=== PATIENT | female | born 1940 | race Caucasian/White ===

== ENCOUNTER 2018-02-08 19:39 | Observation (INO) | payer MEDICARE, OTHER ==
--- NOTE | 2018-02-08 20:12 | ERPHSYRPT ---
- History of Present Illness Time Seen by Provider: 02/08/18 20:03 Source: EMS, long term records Exam Limitations: other (dementia) Patient Subjective Stated Complaint: Pt arrives to ER via EMS from [facility] with c/o per ID RN report of Bradycardia 42-47bpm, Hypotension 93/59 , Hypoxia in the 80's on RA and SOB. Per ID RN report states placed pt on 2L O2 NC and pt up to 90-92%. Pt also recently had medication changed d/c Valsartan and started Losartan 1 week ago. EMS reports HR never dropping lower than 62bpm , reports 130's/80's BP and had found pt on RA in [place] with O2 low 90's. pt states has intermittent SOB but otherwise denies any c/o. pt tachypneic breathing 26 resps/min and somewhat labored. Pt has +1 pitting edema BLE. Denies CP, pain anywhere or any other c/o. Triage Nursing Assessment: see above Physician History: The patient is a demented 77-year-old female from a local long term by ambulance where it was reported that she had a heart rate of 42-47 bpm, blood pressure of 93/59, and O2 saturation on room air of 80%. halfway nurse reports placing the patient on O2 2 L nasal cannula with O2 saturation reaching 90-92%. EMS reports that her heart rate on transport was in the 60s and 70s, blood pressure 130s over 80s, and O2 saturation in the low 90s. Her past medical history significant for dementia, hypertension, and diabetes. The daughter called the pt's deputy jailer, Dr Corea, who wants the pt to be observed overnight. Timing/Duration: today Severity: moderate Modifying Factors: Improves With: nothing Associated Symptoms: shortness of breath, No nausea, No vomiting, No diaphoresis Allergies/Adverse Reactions: No Known Drug Allergies Allergy (Verified 02/23/15 08:39) Home Medications: Insulin Detemir [Levemir] 22 unit SQ QHS 02/23/15 [History] Acetaminophen 325 mg [Tylenol 325 mg] 325 mg PO Q4HPRN PRN 02/08/18 [ History] Amlodipine Besylate 5 mg [Norvasc 5 mg] 5 mg PO DAILY 02/08/18 [History] Apixaban [Eliquis 5 mg Tablet] 5 mg PO BID 02/08/18 [History] Aspirin 81 gm Chew [Baby Aspirin 81 mg Chew] 81 mg PO DAILY 02/08/18 [ History] Bumetanide 1 mg [Bumex 1 mg] 1 mg PO DAILY 02/08/18 [History] Clonazepam 0.5 mg [Klonopin 0.5 MG] 0.5 mg PO TID 02/08/18 [History] Docusate Sodium 100 mg [Colace 100 MG] 100 mg PO BID 02/08/18 [History] Donepezil HCl [Aricept] 5 mg PO DAILY 02/08/18 [History] Escitalopram Oxalate 10 mg [Lexapro 10 MG] 10 mg PO DAILY 02/08/18 [History] Folic Acid 1 mg [Folate 1 mg] 1 mg PO DAILY 02/08/18 [History] Hydrocodone Bit/Acetaminophen [[place] 5-325 Tablet] 1 each PO 02/08/18 [History] Insulin Aspart [NovoLOG Insulin] 7 units SQ TIDWM 02/08/18 [History] Losartan Potassium [Cozaar] 100 mg PO DAILY 02/08/18 [History] Memantine HCl 5 mg PO BID 02/08/18 [History] OLANZapine [Olanzapine] 2.5 mg PO DAILY 02/08/18 [History] PANTOPRAZOLE 40 mg Tablet [Protonix 40MG Tablet] 40 mg PO DAILY 02/08/18 [ History] Potassium Chloride [Klor-Con 10] 10 meq PO DAILY 02/08/18 [History] Sennosides [Senna] 8.6 mg PO DAILY 02/08/18 [History] Hx Tetanus, Diphtheria Vaccination/Date Given: Yes Hx Influenza Vaccination/Date Given: No Hx Pneumococcal Vaccination/Date Given: No - Review of Systems Constitutional: No Fever, No Chills Eyes: No Symptoms Ears, Nose, & Throat: No Symptoms Respiratory: Dyspnea Cardiac: No Chest Pain, No Edema, No Syncope Abdominal/Gastrointestinal: No Abdominal Pain, No Nausea, No Vomiting, No Diarrhea Genitourinary Symptoms: No Dysuria Musculoskeletal: No Back Pain, No Neck Pain Skin: No Rash Neurological: No Dizziness, No Focal Weakness, No Sensory Changes Psychological: No Symptoms Endocrine: No Symptoms Hematologic/Lymphatic: No Symptoms Immunological/Allergic: No Symptoms All Other Systems: Reviewed and Negative - Past Medical History Pertinent Past Medical History: Yes Neurological History: Peripheral Neuropathy ENT History: Cataracts Cardiac History: Hypertension Respiratory History: COPD, Sleep Apnea, Other Endocrine Medical History: Diabetes Type II Musculoskeletal History: Arthritis GI Medical History: Diverticulitis, Irritable Bowel History: No Pertinent History Psycho-Social History: No Pertinent History Female Reproductive Disorders: No Pertinent History Other Medical History: pt family states ot noncompliant with cpap - Past Surgical History Past Surgical History: Yes Neuro Surgical History: No Pertinent History Cardiac: No Pertinent History Respiratory: No Pertinent History Gastrointestinal: No Pertinent History Genitourinary: Other Musculoskeletal: No Pertinent History Female Surgical History: Tubal Ligation Other Surgical History: ear surgery, cataract surgery, bladder tuck,lasik surgery - Social History Smoking Status: Former smoker How long have you smoked: 50 years Exposure to second hand smoke: No Drug Use: none Patient Lives Alone: No - Female History Hx Now: No - Nursing Vital Signs Nursing Vital Signs: Initial Vital Signs Temperature 99.4 F 02/08/18 19:41 Pulse Rate 64 02/08/18 19:41 Respiratory Rate 26 H 02/08/18 19:41 Blood Pressure 156/90 02/08/18 19:41 O2 Sat by Pulse Oximetry 91 L 02/08/18 19:41 Pain Scale Pain Intensity 0 - Physical Exam General Appearance: no apparent distress, alert Eye Exam: PERRL/EOMI, eyes nml inspection Ears, Nose, Throat Exam: normal ENT inspection, TMs normal, pharynx normal, moist mucous membranes Neck Exam: normal inspection, non-tender, supple, full range of motion Respiratory Exam: prolonged expirations Cardiovascular Exam: regular rate/rhythm, normal heart sounds, normal peripheral pulses Gastrointestinal/Abdomen Exam: soft, normal bowel sounds, No tenderness, No mass Pelvic Exam: not done Rectal Exam: not done Back Exam: normal inspection, normal range of motion, No CVA tenderness, No vertebral tenderness Extremity Exam: normal inspection, normal range of motion, pelvis stable Neurologic Exam: alert, oriented x 3, cooperative, normal mood/affect, nml cerebellar function, nml station & gait, sensation nml, No motor deficits Skin Exam: normal color, warm, dry, No rash Lymphatic Exam: No adenopathy SpO2 Interpretation: normal SpO2: 91 Oxygen Delivery: Nasal Cannula - Course EKG Interpreted by Me: RATE, Sinus Rhythm, NORMAL AXIS, NORMAL INTERVALS, NORMAL QRS, NORMAL ST-T - Radiology Exams Chest X-ray Interpretation: Interpreted by me, Negative, Other (interval clearing of pulmonary congestion. stable 2v chest. comp 2v chest 11/11/17.) Ordered Tests: Active Orders 24 hr Category Date Time Status Pulp Beater STAT Care 02/08/18 20:03 Active EKG-ER Only STAT Care 02/08/18 19:52 Active IV Insertion STAT Care 02/08/18 20:03 Active Oxygen-ED Only NASAL CANNULA 2 lpm Care 02/08/18 19:52 Active Pulse Oximetry (ED) STAT Care 02/08/18 20:14 Active CHEST 2 VIEWS (PA AND LAT) Stat Exams 02/08/18 20:15 Taken CBC W DIFF Stat Lab 02/08/18 19:55 Completed CMP Stat Lab 02/08/18 19:55 Completed D-DIMER QUANTITATION Stat Lab 02/08/18 19:55 Completed Lactic Acid Stat Lab 02/08/18 20:44 Results Manual Differential NC Stat Lab 02/08/18 19:55 Completed NT PRO BNP Stat Lab 02/08/18 19:55 Completed TROPONIN Q3H Lab 02/08/18 19:55 Completed TROPONIN Q3H Lab 02/08/18 23:15 Ordered TROPONIN Q3H Lab 02/09/18 02:15 Ordered TROPONIN Q3H Lab 02/09/18 05:15 Ordered TROPONIN Q3H Lab 02/09/18 08:15 Ordered Lab/Rad Data: Laboratory Result Diagrams 02/08/18 19:55 02/08/18 19:55 Laboratory Results 02/08/18 02/08/18 02/08/18 Range/Units 20:44 19:55 19:55 WBC (4.0-10.5) K/mm3 RBC (4.1-5.4) M/mm3 Hgb (12.0-16.0) gm/dl Hct (35-47) % MCV (78-100) fl MCH (26-32) pg MCHC (32-36) g/dl RDW (11.5-14.0) % Plt Count (150-450) K/mm3 MPV (6-9.5) fl Absolute Granulocytes (1.4-6.9) Segmented Neutrophils (36.0-66.0) % Band Neutrophils (0.0-2.0) % Lymphocytes (Manual) (24-44) % Monocytes (Manual) (0.0-12.0) % Eosinophils (Manual) (0.00-3.0) % Metamyelocytes % Hypochromia Platelet Estimate (NORMAL) RBC Morphology Basophilic Stippling D-Dimer 444 (215-500) ng/mL Sodium (137-145) mmol/L Potassium (3.5-5.1) mmol/L Chloride (98-107) mmol/L Carbon Dioxide (22-30) mmol/L Anion Gap (5-15) MEQ/L BUN (7-17) mg/dL Creatinine (0.52-1.04) mg/dL Estimated GFR ML/MIN Glucose (74-106) mg/dL Lactic Acid 3.1 H (0.4-2.0) Calcium (8.4-10.2) mg/dL Total Bilirubin (0.2-1.3) mg/dL AST (14-36) U/L ALT (0-35) U/L Alkaline Phosphatase (38-126) U/L Troponin I 0.026 (0.000-0.034) ng/mL NT-Pro-B Natriuret Pep (0-1800) pg/mL Serum Total Protein (6.3-8.2) g/dL Albumin (3.5-5.0) g/dL 02/08/18 02/08/18 Range/Units 19:55 19:55 WBC 7.9 (4.0-10.5) K/mm3 RBC 4.54 (4.1-5.4) M/mm3 Hgb 12.7 (12.0-16.0) gm/dl Hct 41.5 (35-47) % MCV 91.4 (78-100) fl MCH 28.0 (26-32) pg MCHC 30.6 L (32-36) g/dl RDW 14.2 H (11.5-14.0) % Plt Count 215 (150-450) K/mm3 MPV 10.7 H (6-9.5) fl Absolute Granulocytes 4.97 (1.4-6.9) Segmented Neutrophils 70 H (36.0-66.0) % Band Neutrophils 4 H (0.0-2.0) % Lymphocytes (Manual) 17 L (24-44) % Monocytes (Manual) 5 (0.0-12.0) % Eosinophils (Manual) 3 (0.00-3.0) % Metamyelocytes 1 % Hypochromia 1+ Platelet Estimate NORMAL (NORMAL) RBC Morphology ABNORMAL Basophilic Stippling 1+ D-Dimer (215-500) ng/mL Sodium 137 (137-145) mmol/L Potassium 4.1 (3.5-5.1) mmol/L Chloride 98 (98-107) mmol/L Carbon Dioxide 29 (22-30) mmol/L Anion Gap 15.0 (5-15) MEQ/L BUN 31 H (7-17) mg/dL Creatinine 1.23 H (0.52-1.04) mg/dL Estimated GFR 44.9 ML/MIN Glucose 397 H (74-106) mg/dL Lactic Acid (0.4-2.0) Calcium 9.1 (8.4-10.2) mg/dL Total Bilirubin 0.20 (0.2-1.3) mg/dL AST 16 (14-36) U/L ALT 16 (0-35) U/L Alkaline Phosphatase 128 H (38-126) U/L Troponin I (0.000-0.034) ng/mL NT-Pro-B Natriuret Pep 922 (0-1800) pg/mL Serum Total Protein 6.6 (6.3-8.2) g/dL Albumin 3.7 (3.5-5.0) g/dL - Progress Progress: unchanged Discussed with : Carmine (for Dr Loretta Flower) Will see patient in: hospital (observation) Counseled pt/family regarding: lab results, diagnosis, rad results - Departure Time of Disposition: 21:29 Departure Disposition: Observation (Per Dr Lou for Dr Loretta Flower) Clinical Impression: Bradycardia, Hypotension, Dyspnea Condition: Stable Critical Care Time: No Referrals: DARYL LIVINGSTON [Primary Care Provider] -
[2018-02-08 20:26] LABS: Granulocyte Absolute (ANC) 4.97 (1.4-6.9); Hematocrit 41.5 % (35-47); Hemoglobin 12.7 gm/dl (12.0-16.0); Mean Cell Volume 91.4 fl (78-100); Mean Corpuscular Hgb Concent. 30.6 g/dl (32-36); Mean Platelet Volume 10.7 fl (6-9.5); Platelet Count 215 K/mm3 (150-450); Red Blood Count 4.54 M/mm3 (4.1-5.4); Red Cell Distribution Width 14.2 % (11.5-14.0); White Blood Count 7.9 K/mm3 (4.0-10.5)
[2018-02-08 20:53] LABS: ALBUMIN 3.7 g/dL (3.5-5.0); BILIRUBIN,TOTAL 0.2 mg/dL (0.2-1.3); Calcium 9.1 mg/dL (8.4-10.2); Creatinine 1 1.23 mg/dL (0.52-1.04); Potassium 4.1 mmol/L (3.5-5.1); Total Protein 6.6 g/dL (6.3-8.2)
[2018-02-08 20:58] LABS: Lactic Acid 3.1 (0.4-2.0)
[2018-02-08 21:11] LABS: BAND 4 % (0.0-2.0); Basophilic Stippling 1+; Eosinophil 3 % (0.00-3.0); Hypochromia 1+; Lymphocytes 17 % (24-44); Metamyelocyte 1 %; Monocyte 5 % (0.0-12.0); Neutrophils 70 % (36.0-66.0); Platelet Estimate NORMAL (NORMAL); Total Cells Counted 100
[2018-02-08] MEDS ORDERED: Zofran 4 MG/2 ML VIAL IV PRN (22:18)
[2018-02-08] MEDS ORDERED: TYLENOL 325 MG PO PRN (22:18)
[2018-02-08] MEDS: Sodium Chloride 0.9% 1000 ML 1,000 ML IV SCH (22:29)
[2018-02-09] MEDS ORDERED: APRESOLINE 20 MG/ML INJ IV PRN (00:09)
[2018-02-09] MEDS: NovoLOG Insulin SQ PRN ×3 (00:42→12:07)
[2018-02-09 05:58] LABS: ANION GAP 12.9 MEQ/L (5-15); Calcium 9.1 mg/dL (8.4-10.2); Creatinine 1 1.03 mg/dL (0.52-1.04); Potassium 3.8 mmol/L (3.5-5.1)
[2018-02-09 06:01] LABS: Granulocyte Absolute (ANC) 4.39 (1.4-6.9); Hematocrit 41.9 % (35-47); Mean Cell Volume 90.5 fl (78-100); Mean Corpuscular Hemoglobin 28.1 pg (26-32); Mean Platelet Volume 10.5 fl (6-9.5); Platelet Count 213 K/mm3 (150-450); Red Blood Count 4.63 M/mm3 (4.1-5.4); Red Cell Distribution Width 14.1 % (11.5-14.0); White Blood Count 7.1 K/mm3 (4.0-10.5)
[2018-02-09 06:31] LABS: Lymphocytes 22 % (24-44); Monocyte 3 % (0.0-12.0); Neutrophils 75 % (36.0-66.0); Platelet Estimate NORMAL (NORMAL); Total Cells Counted 100
[2018-02-09] MEDS: Sodium Chloride 0.9% 1000 ML 1,000 ML IV SCH (07:38)
--- NOTE | 2018-02-09 08:40 | PCM.HP ---
History of Present Illness - Chief Complaint Chief Complaint: bradycardia,hypotension,dyspnea Date: 02/09/18 History of Present Illness: is a 77 year old female. who was living at [facility] and became more faitigued and reported just not feeling well. Her vitals showed low pulse in the 40's which is abnormal for her. She was denied any chest pain. She then was having lower oxygen and was placed on 2L. She reported just not feeling well and thus was transfered to the ED. There her evaluation was remarkable only for lactic acid elevated. She was given fluids and slept well overnight but pulse was in the 50's She had several pauses overnight as well as episodes of NSVT. She denies complaints this am however when we lay her back in bed her pulse dropped to the upper 30's with her awake. It appears sinus rhythm she is awake and asymptomatic during this. Sitting up now it has improved back to a puls in the upper 50's low 60's. She does not take any medications for slowing the pulse. - Review of Systems Constitutional: No Fever, No Chills Eyes: No Symptoms Ears, Nose, & Throat: No Symptoms, Other (hearing loss) Respiratory: Cough (mild), No Short Of Breath Cardiac: No Chest Pain, No Edema, No Syncope Abdominal/Gastrointestinal: No Abdominal Pain, No Nausea, No Vomiting, No Diarrhea Genitourinary Symptoms: No Dysuria Musculoskeletal: No Back Pain, No Neck Pain Skin: No Rash Neurological: No Dizziness, No Focal Weakness, No Sensory Changes Psychological: No Symptoms Endocrine: No Symptoms Hematologic/Lymphatic: No Symptoms Immunological/Allergic: No Symptoms Medications & Allergies Home Medications: Home Medication List Insulin Detemir [Levemir] 22 unit SQ BID 02/23/15 [History Confirmed 02/08/18] Acetaminophen 325 mg [Tylenol 325 mg] 650 mg PO Q4HPRN PRN 02/08/18 [ History Confirmed 02/08/18] Amlodipine Besylate 5 mg [Norvasc 5 mg] 5 mg PO DAILY 02/08/18 [History Confirmed 02/08/18] Apixaban [Eliquis 5 mg Tablet] 5 mg PO BID 02/08/18 [History Confirmed ] Aspirin 81 gm Chew [Baby Aspirin 81 mg Chew] 81 mg PO DAILY 02/08/18 [ History Confirmed 02/08/18] Atorvastatin Calcium 40 mg PO DAILY 02/08/18 [History Confirmed 02/08/18] Bumetanide 1 mg [Bumex 1 mg] 1 mg PO DAILY 02/08/18 [History Confirmed ] Clonazepam 0.5 mg [Klonopin 0.5 MG] 0.5 mg PO TID 02/08/18 [History Confirmed 02/08/18] Docusate Sodium 100 mg [Colace 100 MG] 100 mg PO BID 02/08/18 [History Confirmed 02/08/18] Donepezil HCl [Aricept] 5 mg PO DAILY 02/08/18 [History Confirmed 02/08/18] Escitalopram Oxalate 10 mg [Lexapro 10 MG] 10 mg PO DAILY 02/08/18 [History Confirmed 02/08/18] Folic Acid 1 mg [Folate 1 mg] 1 mg PO DAILY 02/08/18 [History Confirmed ] Hydrocodone Bit/Acetaminophen [[place] 5-325 Tablet] 1 each PO Q4H PRN 02/08/18 [ History Confirmed 02/08/18] Hydrocodone/Acetaminophen [[place] 5-325 Tablet] 1 each PO BID 02/08/18 [History Confirmed 02/08/18] Insulin Aspart [NovoLOG Insulin] 7 units SQ TIDWM 02/08/18 [History Confirmed 02/08/18] Losartan Potassium [Cozaar] 100 mg PO DAILY 02/08/18 [History Confirmed 02/08/18 ] Memantine HCl 5 mg PO BID 02/08/18 [History Confirmed 02/08/18] Nitroglycerin 0.4 mg Tablet [Nitrostat 0.4 MG Tablet] 1 tablet SL UD PRN 02/08/18 [History Confirmed 02/09/18] OLANZapine [Olanzapine] 2.5 mg PO QHS 02/08/18 [History Confirmed 02/08/18] PANTOPRAZOLE 40 mg Tablet [Protonix 40MG Tablet] 40 mg PO DAILY 02/08/18 [ History Confirmed 02/08/18] Potassium Chloride [Klor-Con 10] 10 meq PO DAILY 02/08/18 [History Confirmed ] Sennosides [Senna] 8.6 mg PO DAILY 02/08/18 [History Confirmed 02/08/18] Allergies/Adverse Reactions: Allergies Allergy/AdvReac Type Severity Reaction Status Date / Time JAY Inhibitors Allergy Severe angioedema Verified 02/09/18 12:53 - Past Medical History Past Medical History: Yes Neurological History: Peripheral Neuropathy ENT History: Cataracts Cardiac History: Hypertension Respiratory History: COPD, Sleep Apnea, Other Endocrine Medical History: Diabetes Type II Musculoskelatal History: Arthritis GI Medical History: Diverticulitis, Irritable Bowel History: No Pertinent History Pyscho-Social History: No Pertinent History Reproductive Disorders: No Pertinent History Comment: pt family states pt noncompliant with cpap - Female History Are you now?: No - Past Surgical History Past Surgical History: Yes Neuro Surgical History: No Pertinent History Cardiac History: No Pertinent History Respiratory Surgery: No Pertinent History GI Surgical History: No Pertinent History Genitourinary Surgical Hx: Other Musculskeletal Surgical Hx: No Pertinent History Female Surgical History: Tubal Ligation Other Surgical History: ear surgery, cataract surgery, bladder tuck,lasik surgery - Social History Smoking Status: Former smoker How long have you smoked: 50 years Exposure to second hand smoke: No Alcohol: None Drug Use: none - Physical Exam Vital Signs: Vital Signs - 24 hr Temp Pulse Pulse Resp BP Pulse Ox 02/09/18 07:06 98.6 F 57 L 18 172/69 93 L 02/09/18 06:00 20 02/09/18 04:00 98.1 F 56 L 20 175/80 94 L 02/09/18 00:00 58 L 20 170/90 96 02/08/18 22:52 97.8 F 58 L 20 192/85 97 02/08/18 21:33 91 L 02/08/18 21:00 60 16 146/81 96 02/08/18 20:17 90 L 02/08/18 19:41 99.4 F 64 64 26 H 156/90 91 L Oxygen-Last 24 hours O2 Percentage 2 Liters = 28% O2 Percentage 2 Liters = 28% O2 Percentage 2 Liters = 28% O2 Percentage 2 Liters = 28% O2 Percentage 2 Liters = 28% O2 Percentage 2 Liters = 28% General Appearance: no apparent distress, alert Neurologic Exam: alert, cooperative, normal mood/affect, nml cerebellar function , sensation nml, No motor deficits Eye Exam: PERRL/EOMI, eyes nml inspection Ears, Nose, Throat Exam: normal ENT inspection, pharynx normal, moist mucous membranes, dry mucous membranes Neck Exam: normal inspection, non-tender, supple, full range of motion Respiratory Exam: normal breath sounds, lungs clear, No respiratory distress Cardiovascular Exam: regular rate/rhythm, normal peripheral pulses, bradycardia Gastrointestinal/Abdomen Exam: soft, normal bowel sounds, No tenderness, No mass Back Exam: normal inspection, normal range of motion, No CVA tenderness, No vertebral tenderness Extremity Exam: normal inspection, normal range of motion, pelvis stable Skin Exam: normal color, warm, dry, No rash Lymphatic Exam: No adenopathy Results - Labs Lab/Micro Results: Accuchecks Date 02/09/18 Date 02/09/18 Time 07:44 Time 00:38 Accucheck Value: 220 Accucheck Value: 282 Lab Results-Last 24 Hours 02/08/18 02/08/18 02/08/18 Range/Units 19:55 19:55 19:55 WBC 7.9 (4.0-10.5) K/mm3 RBC 4.54 (4.1-5.4) M/mm3 Hgb 12.7 (12.0-16.0) gm/dl Hct 41.5 (35-47) % MCV 91.4 (78-100) fl MCH 28.0 (26-32) pg MCHC 30.6 L (32-36) g/dl RDW 14.2 H (11.5-14.0) % Plt Count 215 (150-450) K/mm3 MPV 10.7 H (6-9.5) fl Absolute Granulocytes 4.97 (1.4-6.9) Segmented Neutrophils 70 H (36.0-66.0) % Band Neutrophils 4 H (0.0-2.0) % Lymphocytes (Manual) 17 L (24-44) % Monocytes (Manual) 5 (0.0-12.0) % Eosinophils (Manual) 3 (0.00-3.0) % Metamyelocytes 1 % Hypochromia 1+ Platelet Estimate NORMAL (NORMAL) RBC Morphology ABNORMAL Basophilic Stippling 1+ D-Dimer 444 (215-500) ng/mL Sodium 137 (137-145) mmol/L Potassium 4.1 (3.5-5.1) mmol/L Chloride 98 (98-107) mmol/L Carbon Dioxide 29 (22-30) mmol/L Anion Gap 15.0 (5-15) MEQ/L BUN 31 H (7-17) mg/dL Creatinine 1.23 H (0.52-1.04) mg/dL Estimated GFR 44.9 ML/MIN Glucose 397 H (74-106) mg/dL Lactic Acid (0.4-2.0) Calcium 9.1 (8.4-10.2) mg/dL Total Bilirubin 0.20 (0.2-1.3) mg/dL AST 16 (14-36) U/L ALT 16 (0-35) U/L Alkaline Phosphatase 128 H (38-126) U/L Troponin I (0.000-0.034) ng/mL NT-Pro-B Natriuret Pep 922 (0-1800) pg/mL Serum Total Protein 6.6 (6.3-8.2) g/dL Albumin 3.7 (3.5-5.0) g/dL 02/08/18 02/08/18 02/08/18 Range/Units 19:55 20:44 23:15 WBC (4.0-10.5) K/mm3 RBC (4.1-5.4) M/mm3 Hgb (12.0-16.0) gm/dl Hct (35-47) % MCV (78-100) fl MCH (26-32) pg MCHC (32-36) g/dl RDW (11.5-14.0) % Plt Count (150-450) K/mm3 MPV (6-9.5) fl Absolute Granulocytes (1.4-6.9) Segmented Neutrophils (36.0-66.0) % Band Neutrophils (0.0-2.0) % Lymphocytes (Manual) (24-44) % Monocytes (Manual) (0.0-12.0) % Eosinophils (Manual) (0.00-3.0) % Metamyelocytes % Hypochromia Platelet Estimate (NORMAL) RBC Morphology Basophilic Stippling D-Dimer (215-500) ng/mL Sodium (137-145) mmol/L Potassium (3.5-5.1) mmol/L Chloride (98-107) mmol/L Carbon Dioxide (22-30) mmol/L Anion Gap (5-15) MEQ/L BUN (7-17) mg/dL Creatinine (0.52-1.04) mg/dL Estimated GFR ML/MIN Glucose (74-106) mg/dL Lactic Acid 3.1 H (0.4-2.0) Calcium (8.4-10.2) mg/dL Total Bilirubin (0.2-1.3) mg/dL AST (14-36) U/L ALT (0-35) U/L Alkaline Phosphatase (38-126) U/L Troponin I 0.026 0.028 (0.000-0.034) ng/mL NT-Pro-B Natriuret Pep (0-1800) pg/mL Serum Total Protein (6.3-8.2) g/dL Albumin (3.5-5.0) g/dL 02/09/18 02/09/18 02/09/18 Range/Units 02:21 04:00 05:33 WBC (4.0-10.5) K/mm3 RBC (4.1-5.4) M/mm3 Hgb (12.0-16.0) gm/dl Hct (35-47) % MCV (78-100) fl MCH (26-32) pg MCHC (32-36) g/dl RDW (11.5-14.0) % Plt Count (150-450) K/mm3 MPV (6-9.5) fl Absolute Granulocytes (1.4-6.9) Segmented Neutrophils (36.0-66.0) % Band Neutrophils (0.0-2.0) % Lymphocytes (Manual) (24-44) % Monocytes (Manual) (0.0-12.0) % Eosinophils (Manual) (0.00-3.0) % Metamyelocytes % Hypochromia Platelet Estimate (NORMAL) RBC Morphology Basophilic Stippling D-Dimer (215-500) ng/mL Sodium (137-145) mmol/L Potassium (3.5-5.1) mmol/L Chloride (98-107) mmol/L Carbon Dioxide (22-30) mmol/L Anion Gap (5-15) MEQ/L BUN (7-17) mg/dL Creatinine (0.52-1.04) mg/dL Estimated GFR ML/MIN Glucose (74-106) mg/dL Lactic Acid 1.3 (0.4-2.0) Calcium (8.4-10.2) mg/dL Total Bilirubin (0.2-1.3) mg/dL AST (14-36) U/L ALT (0-35) U/L Alkaline Phosphatase (38-126) U/L Troponin I 0.031 0.038 H* (0.000-0.034) ng/mL NT-Pro-B Natriuret Pep (0-1800) pg/mL Serum Total Protein (6.3-8.2) g/dL Albumin (3.5-5.0) g/dL 02/09/18 02/09/18 Range/Units 05:33 05:33 WBC 7.1 (4.0-10.5) K/mm3 RBC 4.63 (4.1-5.4) M/mm3 Hgb 13.0 (12.0-16.0) gm/dl Hct 41.9 (35-47) % MCV 90.5 (78-100) fl MCH 28.1 (26-32) pg MCHC 31.0 L (32-36) g/dl RDW 14.1 H (11.5-14.0) % Plt Count 213 (150-450) K/mm3 MPV 10.5 H (6-9.5) fl Absolute Granulocytes 4.39 (1.4-6.9) Segmented Neutrophils 75 H (36.0-66.0) % Band Neutrophils (0.0-2.0) % Lymphocytes (Manual) 22 L (24-44) % Monocytes (Manual) 3 (0.0-12.0) % Eosinophils (Manual) (0.00-3.0) % Metamyelocytes % Hypochromia Platelet Estimate NORMAL (NORMAL) RBC Morphology NORMAL Basophilic Stippling D-Dimer (215-500) ng/mL Sodium 142 (137-145) mmol/L Potassium 3.8 (3.5-5.1) mmol/L Chloride 101 (98-107) mmol/L Carbon Dioxide 32 H (22-30) mmol/L Anion Gap 12.9 (5-15) MEQ/L BUN 26 H (7-17) mg/dL Creatinine 1.03 (0.52-1.04) mg/dL Estimated GFR 55.1 ML/MIN Glucose 200 H (74-106) mg/dL Lactic Acid (0.4-2.0) Calcium 9.1 (8.4-10.2) mg/dL Total Bilirubin (0.2-1.3) mg/dL AST (14-36) U/L ALT (0-35) U/L Alkaline Phosphatase (38-126) U/L Troponin I (0.000-0.034) ng/mL NT-Pro-B Natriuret Pep (0-1800) pg/mL Serum Total Protein (6.3-8.2) g/dL Albumin (3.5-5.0) g/dL Accuchecks Date 02/09/18 Date 02/09/18 Time 07:44 Time 00:38 Accucheck Value: 220 Accucheck Value: 282 - Radiology Impressions Radiology Exams & Impressions: Radiology Procedures Category Date Time Status CHEST 2 VIEWS (PA AND LAT) Stat Exams 02/08/18 20:15 Taken - Other Procedures and Tests Respiratory Therapy 02/08/18 22:18 Oxygen NASAL CANNULA 2 lpm Assessment/Plan (1) Bradycardia Current Visit: Yes Status: Acute Onset Date: ~02/09/18 Assessment & Plan: discussed the pauses overnight with the symptoms as well as the bradycardia into the 30's with position changes with her pump and still operator Dr. Corea who has graciously accepted the patient for transfer to [facility] for further evaluation for possible need for internal pacemaker. Code(s): R00.1 - BRADYCARDIA, UNSPECIFIED (2) Sinus pause Current Visit: Yes Status: Acute Code(s): I45.5 - OTHER SPECIFIED HEART BLOCK (3) Atrial fibrillation Current Visit: Yes Status: Chronic Code(s): I48.91 - UNSPECIFIED ATRIAL FIBRILLATION (4) Essential hypertension Current Visit: Yes Status: Chronic Code(s): I10 - ESSENTIAL (PRIMARY) HYPERTENSION (5) Diabetes Current Visit: Yes Status: Chronic Code(s): E11.9 - TYPE 2 DIABETES MELLITUS WITHOUT COMPLICATIONS (6) Alzheimer's dementia with behavioral disturbance Current Visit: Yes Status: Chronic Code(s): G30.9 - ALZHEIMER'S DISEASE, UNSPECIFIED; F02.81 - DEMENTIA IN OTH DISEASES CLASSD [id number] W BEHAVIORAL DISTURB (7) Sleep apnea Current Visit: Yes Status: Chronic Code(s): G47.30 - SLEEP APNEA, UNSPECIFIED
--- NOTE | 2018-02-09 09:04 | XRAY ---
Exam: Two-view chest from 02/08/2018. Comparison: Two-view chest from 11/11/2016. Indication: Shortness of breath. Findings: AP semi-upright chest film obtained on the cart and 2 semi-upright lateral chest films on the cart with assistance were obtained. The heart size appears at the upper limits of normal. A calcified markedly tortuous thoracic aorta is seen. I again see a focal contour bulge at the superior margin of the aortic knob which could possibly represent some focal aneurysmal distention. The patient is rotated slightly toward the right on the AP film. I note some retrocardiac density which may be due to markedly tortuous distal descending thoracic aorta and/or hiatal hernia. A mild, oblique band of discoid atelectasis or scarring is seen within the central left lower lung field on the AP film. I do not appreciate any central pulmonary vascular congestion, Miguel B-lines, or pleural effusions. No air space infiltrates or other lung abnormalities are seen. No pneumothorax is seen. The bones are significantly demineralized. Mild diffuse chronic degenerative changes are seen within the middle and lower thoracic spine. The lateral images are slightly rotated as well. Impression: 1. Prior CHF pattern on 11/11/2016 has resolved. The current exam reveals no acute cardiopulmonary disease. 2. Small, oblique band of discoid atelectasis or scarring within central left lower lung field on AP image. No air space pneumonic infiltrates or other active lung disease is seen. 3. Focal convex contour bulge at the superior aspect of the aortic knob appears stable. Some focal aneurysmal distention of the thoracic aorta at this level may be present. 4. There is some retrocardiac density which is either due to a markedly tortuous descending thoracic aorta, retrocardiac hiatal hernia, or a combination of both. I favor that this is due to a markedly tortuous distal descending thoracic aorta.
[2018-02-09 09:13] LABS: Appearance CLEAR (CLEAR); Bilirubin NEGATIVE (NEGATIVE); Blood NEGATIVE Ery/ul (0-5); Glucose NEGATIVE (NEGATIVE); Ketones NEGATIVE (NEGATIVE); Leukocyte Esterase 1+ (NEGATIVE); Nitrite NEGATIVE (NEGATIVE); Protein,Urine Dip NEGATIVE (Negative); Urobilinogen NORMAL mg/dL (0-1)
[2018-02-09 09:23] LABS: Bacteria RARE /HPF (NEGATIVE); Epithelial Cells RARE /HPF (FEW); Mucus SLIGHT /HPF (NEGATIVE)
[2018-02-09] MEDS ORDERED: TYLENOL 325 MG PO PRN (09:38)
[2018-02-09] MEDS ORDERED: Nitrostat 0.4 MG Tablet SL PRN (09:38)
[2018-02-09] MEDS ORDERED: NORCO 5/325 MG PO PRN (09:38)
[2018-02-09] MEDS ORDERED: NORVASC 5 MG PO SCH (10:00)
[2018-02-09] MEDS ORDERED: Klor Con 10 MEQ PO SCH (10:00)
[2018-02-09] MEDS ORDERED: Aricept 10 MG PO SCH (10:00)
[2018-02-09] MEDS ORDERED: BABY ASPIRIN 81 MG CHEW PO SCH (10:00)
[2018-02-09] MEDS ORDERED: NON-FORMULARY ITEM (Donepezil Hcl [Aricept] 5 MG) PO SCH (10:00)
[2018-02-09] MEDS ORDERED: INSULIN DETEMIR 22 UNIT SQ SCH (10:00)
[2018-02-09] MEDS ORDERED: Colace 100 MG PO SCH (10:00)
[2018-02-09] MEDS ORDERED: FOLATE 1 MG PO SCH (10:00)
[2018-02-09] MEDS ORDERED: BUMEX 1 MG PO SCH (10:00)
[2018-02-09] MEDS ORDERED: Namenda 5 MG PO SCH (10:00)
[2018-02-09] MEDS ORDERED: NORCO 5/325 MG PO SCH (10:00)
[2018-02-09] MEDS ORDERED: Lexapro 10 MG PO SCH (10:00)
[2018-02-09] MEDS ORDERED: Lantus Insulin SQ SCH (10:00)
[2018-02-09] MEDS ORDERED: Klonopin 0.5 MG PO SCH (10:00)
[2018-02-09] MEDS ORDERED: Cozaar 50 MG PO SCH (10:00)
[2018-02-09] MEDS ORDERED: NON-FORMULARY ITEM (Losartan Potassium [Cozaar] 100 MG) PO SCH (10:00)
[2018-02-09] MEDS ORDERED: Protonix 40MG Tablet PO SCH (10:00)
[2018-02-09] MEDS ORDERED: ECOTRIN 81 MG PO SCH (10:00)
[2018-02-09] MEDS ORDERED: SENOKOT 8.6 MG PO SCH (10:00)
[2018-02-09] MEDS ORDERED: ELIQUIS 2.5 MG TABLET PO SCH (10:00)
[2018-02-09] MEDS ORDERED: ELIQUIS 5 MG TABLET PO SCH (10:00)
[2018-02-09] MEDS ORDERED: ROCEPHIN 1 Gm-D5w 50 ml Bag** 1 G/50 ML IVPB IV SCH (10:00)
[2018-02-09 11:54] VITALS: BP 161/77; PULSE 60; O2SAT 96
[2018-02-09] MEDS ORDERED: NovoLOG Insulin SQ SCH (12:00)
[2018-02-09] MEDS ORDERED: zyPREXA 5MG TABLET PO SCH (22:00)
[2018-02-09] MEDS ORDERED: LIPITOR 40MG PO SCH (22:00)
[2018-02-09] MEDS ORDERED: OLANZAPINE 2.5 MG PO SCH (22:00)
== END 2018-02-09 13:59 | disposition home or self-care (01) ==
LOC: ED 19:39 → MED SURG 22:15
PROVIDERS: ADMIT Family Medicine; ATTEND Family Medicine
DX: R11.0 Nausea (principal); I45.5 Other specified heart block; I48.91 Unspecified atrial fibrillation; I10 Essential (primary) hypertension; E11.9 Type 2 diabetes mellitus without complications; G30.8 Other Alzheimer's disease; G30.0 Alzheimer's disease with early onset; F02.81 Dementia in other diseases classified elsewhere, unspecified severity, with behavioral disturbance; G47.30 Sleep apnea, unspecified
CPT/HCPCS: 36000; 36415; 71046; 80048; 80053; 81000; 83605; 83880; 84484; 85025; 85379; 87086; 93005; 93041; 93268; 94760; 99285; J0696; A9270-GY; G0378

== ENCOUNTER 2019-02-27 10:28 | Inpatient (IN) | payer MEDICARE, OTHER ==
[2019-02-27] MEDS ORDERED: Sodium Chloride 0.9% 1000 ML 1,000 ML IV SCH (11:00)
[2019-02-27] MEDS ORDERED: Sodium Chloride 0.9% 1000 ML 1,000 ML ONE (11:05)
--- NOTE | 2019-02-27 11:08 | ERPHSYRPT ---
- History of Present Illness Time Seen by Provider: 02/27/19 11:02 Historian: patient, EMS Exam Limitations: other (poor historian) Patient Subjective Stated Complaint: pt daughter called this nurse prior to arrival of patient and stated that pt has LLQ pain, ems reports that pt has not had a bowel movement since wednesday and normally goes daily. ems also reports that pt has recently had the left kidney removed. pt unable to answer triage questions. Triage Nursing Assessment: pt is aox1, pt unable to answers some questions, pt does respond verbally, facial grimacing noted, radial pulses strong and equal, cap refill < 3 seconds, abd is round, tender to the left side, bowel sounds present and normoative x 4, external female catheter noted, pt mucous membranes appear dry. Physician History: Pt is c/o LLQ abdominal pain for "few days" according to her daughter, she did not have BM for 2 days, she denies vomiting, fever, urinary complaints. She wears a female external urinary catheter. She underwent left nephrectomy recently. Timing/Duration: day(s) (2) Activities at Onset: none Quality: sharpness Abdominal Pain Onset Location: LLQ Pain Radiation: no radiation Severity of Pain-Max: severe Severity of Pain-Current: severe Modifying Factors: Improves With: nothing Associated Symptoms: other (constipation) Previous symptoms: no prior history Allergies/Adverse Reactions: JAY Inhibitors Allergy (Severe, Verified 02/27/19 11:03) angioedema Home Medications: Insulin Detemir [Levemir] 22 unit SQ BID 02/23/15 [History] Acetaminophen 325 mg [Tylenol 325 mg] 650 mg PO Q4HPRN PRN 02/08/18 [ History] Amlodipine Besylate 5 mg [Norvasc 5 mg] 5 mg PO DAILY 02/08/18 [History] Apixaban [Eliquis 5 mg Tablet] 5 mg PO BID 02/08/18 [History] Aspirin 81 gm Chew [Baby Aspirin 81 mg Chew] 81 mg PO DAILY 02/08/18 [ History] Atorvastatin Calcium 40 mg PO DAILY 02/08/18 [History] Bumetanide 1 mg [Bumex 1 mg] 1 mg PO DAILY 02/08/18 [History] Clonazepam 0.5 mg [Klonopin 0.5 MG] 0.5 mg PO TID 02/08/18 [History] Docusate Sodium 100 mg [Colace 100 MG] 100 mg PO BID 02/08/18 [History] Donepezil HCl [Aricept] 5 mg PO DAILY 02/08/18 [History] Escitalopram Oxalate 10 mg [Lexapro 10 MG] 10 mg PO DAILY 02/08/18 [History] Folic Acid 1 mg [Folate 1 mg] 1 mg PO DAILY 02/08/18 [History] Hydrocodone Bit/Acetaminophen [[place] 5-325 Tablet] 1 each PO Q4H PRN 02/08/18 [ History] Hydrocodone/Acetaminophen [[place] 5-325 Tablet] 1 each PO BID 02/08/18 [History] Insulin Aspart [NovoLOG Insulin] 7 units SQ TIDWM 02/08/18 [History] Losartan Potassium [Cozaar] 100 mg PO DAILY 02/08/18 [History] Memantine HCl 5 mg PO BID 02/08/18 [History] Nitroglycerin 0.4 mg Tablet [Nitrostat 0.4 MG Tablet] 1 tablet SL UD PRN 02/08/18 [History] OLANZapine [Olanzapine] 2.5 mg PO QHS 02/08/18 [History] PANTOPRAZOLE 40 mg Tablet [Protonix 40MG Tablet] 40 mg PO DAILY 02/08/18 [ History] Potassium Chloride [Klor-Con 10] 10 meq PO DAILY 02/08/18 [History] Sennosides [Senna] 8.6 mg PO DAILY 02/08/18 [History] Hx Tetanus, Diphtheria Vaccination/Date Given: (UNK) Hx Influenza Vaccination/Date Given: (UNK) Hx Pneumococcal Vaccination/Date Given: (UNK) Immunizations Up to Date: (UNK) - Review of Systems Constitutional: No Symptoms Ears, Nose, & Throat: No Symptoms Respiratory: No Symptoms Cardiac: No Symptoms Abdominal/Gastrointestinal: Abdominal Pain, Constipation Genitourinary Symptoms: No Symptoms Skin: No Symptoms Neurological: No Symptoms All Other Systems: Reviewed and Negative - Past Medical History Pertinent Past Medical History: Yes Neurological History: Peripheral Neuropathy ENT History: Cataracts Cardiac History: Hypertension Respiratory History: COPD, Sleep Apnea, Other Endocrine Medical History: Diabetes Type II Musculoskeletal History: Arthritis GI Medical History: Diverticulitis, Irritable Bowel History: No Pertinent History Psycho-Social History: No Pertinent History Female Reproductive Disorders: No Pertinent History Other Medical History: pt family states pt noncompliant with cpap - Past Surgical History Past Surgical History: Yes Neuro Surgical History: No Pertinent History Cardiac: No Pertinent History Respiratory: No Pertinent History Gastrointestinal: No Pertinent History Genitourinary: Other Musculoskeletal: No Pertinent History Female Surgical History: Tubal Ligation Other Surgical History: ear surgery, cataract surgery, bladder tuck,lasik surgery - Social History Smoking Status: Former smoker How long have you smoked: 50 years Exposure to second hand smoke: No Drug Use: none Patient Lives Alone: No - Female History Hx Now: No - Nursing Vital Signs Nursing Vital Signs: Initial Vital Signs Temperature 98.2 F 02/27/19 10:41 Pulse Rate 63 02/27/19 10:41 Respiratory Rate 22 02/27/19 10:41 Blood Pressure 137/73 02/27/19 10:41 O2 Sat by Pulse Oximetry 96 02/27/19 10:41 Pain Scale Pain Intensity 0 - Physical Exam General Appearance: no apparent distress Eye Exam: eyes nml inspection Ears, Nose, Throat Exam: dry mucous membranes Neck Exam: normal inspection, non-tender, supple, No JVD Respiratory Exam: normal breath sounds, lungs clear, airway intact Cardiovascular Exam: regular rate/rhythm, normal heart sounds, normal peripheral pulses, No murmur Gastrointestinal/Abdomen Exam: soft, tenderness (mod. LLQ), No distention, No mass, No guarding, No ecchymosis, No pulsatile mass, No rebound Pelvic Exam: other (external female urinary catheter in place) Back Exam: normal inspection, No CVA tenderness Extremity Exam: normal inspection, No calf tenderness, No pedal edema Neurologic Exam: alert, oriented x 3, normal mood/affect Skin Exam: normal color, warm, dry, No rash, No jaundice, No cyanosis, No diaphoresis Lymphatic Exam: No adenopathy SpO2 Interpretation: normal SpO2: 97 - Course Nursing assessment & vital signs reviewed: Yes - CT Exams Abdomen/Pelvis CT Interpretation: Tele-radiologist Report, Other (distal descending colon diverticulitis) Ordered Tests: Active Orders 24 hr Category Date Time Status IV Insertion STAT Care 02/27/19 10:58 Active ABDOMEN AND PELVIS W/0 CONTRAS [CT] Stat Exams 02/27/19 12:19 Completed CBC W DIFF Stat Lab 02/27/19 10:58 Completed CMP Stat Lab 02/27/19 11:00 Completed CULTURE,URINE Stat Lab 02/27/19 11:00 Received LIPASE Stat Lab 02/27/19 11:00 Completed Lactic Acid Stat Lab 02/27/19 11:29 Completed UA W/RFX UR CULTURE Stat Lab 02/27/19 11:00 Completed Urine Triage Profile Stat Lab 02/27/19 11:00 Completed Respiratory Therapy Assessment DAILY RT 02/27/19 13:43 Active Medication Summary Generic Name Dose Route Start Last Admin Trade Name Freq PRN Reason Stop Dose Admin Sodium Chloride 1,000 mls @ 100 mls/hr 02/27/19 11:00 02/27/19 11:17 Sodium Chloride 0.9% 1000 Ml IV 03/29/19 10:59 100 mls/hr .Q10H ROSARIO Administration Metronidazole 500 mg in 100 mls @ 200 mls/hr 02/27/19 14:06 02/27/19 14:16 Flagyl 500 Mg Ivpb IV 02/27/19 14:35 200 ml/hr STAT STA 200 mls/hr Administration Levofloxacin/Dextrose 500 mg in 100 mls @ 100 mls/hr 02/27/19 14:06 Levofloxacin 500mg/100ml D5w IV 02/27/19 15:05 STAT STA Discontinued Medications Generic Name Dose Route Start Last Admin Trade Name Freq PRN Reason Stop Dose Admin Albuterol/Ipratropium 3 ml 02/27/19 13:24 02/27/19 13:37 Duoneb 0.5-3 Mg/3 Ml Neb IH 02/27/19 13:25 3 ml STAT ONE Administration Albuterol/Ipratropium Confirm 02/27/19 13:35 Duoneb 0.5-3 Mg/3 Ml Neb Administered 02/27/19 13:36 Dose 3 ml IH .STK-MED ONE Fentanyl Citrate 25 mcg 02/27/19 11:43 02/27/19 12:25 Sublimaze 100 Mcg/2 Ml IV 02/27/19 11:44 25 mcg STAT ONE Administration Fentanyl Citrate Confirm 02/27/19 12:21 Sublimaze 100 Mcg/2 Ml Administered 02/27/19 12:22 Dose 100 mcg .ROUTE .STK-MED ONE Metronidazole Confirm 02/27/19 14:15 Flagyl 500 Mg Ivpb Administered 02/27/19 14:16 Dose 500 mg in 100 mls @ ud IV .STK-MED ONE Ondansetron HCl 4 mg 02/27/19 11:43 02/27/19 12:26 Zofran 4 Mg/2 Ml Vial IV 02/27/19 11:44 4 mg STAT ONE Administration Ondansetron HCl Confirm 02/27/19 12:20 Zofran 4 Mg/2 Ml Vial Administered 02/27/19 12:21 Dose 4 mg .ROUTE .STK-MED ONE Lab/Rad Data: Laboratory Result Diagrams 02/27/19 10:58 02/27/19 10:58 Laboratory Results 02/27/19 02/27/19 02/27/19 Range/Units 11:29 11:00 11:00 WBC (4.0-10.5) K/mm3 RBC (4.1-5.4) M/mm3 Hgb (12.0-16.0) gm/dl Hct (35-47) % MCV (78-100) fl MCH (26-32) pg MCHC (32-36) g/dl RDW (11.5-14.0) % Plt Count (150-450) K/mm3 MPV (6-9.5) fl Gran % (36.0-66.0) % Eos # (Auto) (0-0.5) Absolute Lymphs (auto) (1.0-4.6) Absolute Monos (auto) (0.0-1.3) Lymphocytes % (24.0-44.0) % Monocytes % (0.0-12.0) % Eosinophils % (0.00-5.0) % Basophils % (0.0-0.4) % Absolute Granulocytes (1.4-6.9) Basophils # (0-0.4) Sodium Direct (138-146) mmol/L Potassium (3.5-4.9) mmol/L Chloride (98-109) mmol/L Carbon Dioxide (24-29) mmol/L Anion Gap (5-15) MEQ/L Venous BUN (8-26) mg/dL Creatinine (0.6-1.3) mg/dL Estimated GFR ML/MIN Glucose (70-105) mg/dL Lactic Acid 1.3 (0.4-2.0) Calcium (8.4-10.2) mg/dL Ionized Calcium (1.12-1.32) mmol/L Total Bilirubin (0.2-1.3) mg/dL AST (14-36) U/L ALT (0-35) U/L Alkaline Phosphatase (38-126) U/L Serum Total Protein (6.3-8.2) g/dL Albumin (3.5-5.0) g/dL Lipase (23-300) U/L Urine Color YELLOW (YELLOW) Urine Appearance CLEAR (CLEAR) Urine pH 5.0 (5-6) Ur Specific [place] 1.012 (1.005-1.025) Urine Protein NEGATIVE (Negative) Urine Ketones NEGATIVE (NEGATIVE) Urine Blood MODERATE (0-5) Wilbert/ul Urine Nitrite NEGATIVE (NEGATIVE) Urine Bilirubin NEGATIVE (NEGATIVE) Urine Urobilinogen NEGATIVE (0-1) mg/dL Ur Leukocyte Esterase NEGATIVE (NEGATIVE) Urine WBC (Auto) 0-2 (0-5) /HPF Urine RBC (Auto) 6-10 (0-2) /HPF U Hyaline Cast (Auto) 0-2 (0-2) /LPF U Epithel Cells (Auto) NONE (FEW) /HPF Urine Bacteria (Auto) NONE (NEGATIVE) /HPF Urine Culture Reflexed NO (NO) Urine Glucose NEGATIVE (NEGATIVE) mg/dL Urine Opiates Level POSITIVE (NEGATIVE) Ur Methadone NEGATIVE (NEGATIVE) Urine Barbiturates NEGATIVE (NEGATIVE) Ur Phencyclidine (PCP) NEGATIVE (NEGATIVE) Urine Amphetamine NEGATIVE (NEGATIVE) U Benzodiazepine Level NEGATIVE (NEGATIVE) Urine Cocaine NEGATIVE (NEGATIVE) Urine Marijuana (THC) NEGATIVE (NEGATIVE) 02/27/19 02/27/19 02/27/19 Range/Units 11:00 10:58 10:58 WBC 10.2 (4.0-10.5) K/mm3 RBC 3.93 L (4.1-5.4) M/mm3 Hgb 10.6 L (12.0-16.0) gm/dl Hct 35.0 (35-47) % MCV 89.1 (78-100) fl MCH 26.9 (26-32) pg MCHC 30.3 L (32-36) g/dl RDW 16.9 H (11.5-14.0) % Plt Count 222 (150-450) K/mm3 MPV 10.4 H (6-9.5) fl Gran % 73.3 H (36.0-66.0) % Eos # (Auto) 0.35 (0-0.5) Absolute Lymphs (auto) 1.35 (1.0-4.6) Absolute Monos (auto) 0.99 (0.0-1.3) Lymphocytes % 13.2 L (24.0-44.0) % Monocytes % 9.7 (0.0-12.0) % Eosinophils % 3.4 (0.00-5.0) % Basophils % 0.4 (0.0-0.4) % Absolute Granulocytes 7.49 H (1.4-6.9) Basophils # 0.04 (0-0.4) Sodium Direct 141 (138-146) mmol/L Potassium 4.0 (3.5-4.9) mmol/L Chloride 104 (98-109) mmol/L Carbon Dioxide 25 (24-29) mmol/L Anion Gap 13.1 (5-15) MEQ/L Venous BUN 41 H (8-26) mg/dL Creatinine 2.2 H (0.6-1.3) mg/dL Estimated GFR 25.9 ML/MIN Glucose 116 H (70-105) mg/dL Lactic Acid (0.4-2.0) Calcium 9.5 (8.4-10.2) mg/dL Ionized Calcium 1.24 (1.12-1.32) mmol/L Total Bilirubin 0.40 (0.2-1.3) mg/dL AST 46 H (14-36) U/L ALT 27 (0-35) U/L Alkaline Phosphatase 113 (38-126) U/L Serum Total Protein 7.5 (6.3-8.2) g/dL Albumin 3.8 (3.5-5.0) g/dL Lipase 57 (23-300) U/L Urine Color (YELLOW) Urine Appearance (CLEAR) Urine pH (5-6) Ur Specific [place] (1.005-1.025) Urine Protein (Negative) Urine Ketones (NEGATIVE) Urine Blood (0-5) Wilbert/ul Urine Nitrite (NEGATIVE) Urine Bilirubin (NEGATIVE) Urine Urobilinogen (0-1) mg/dL Ur Leukocyte Esterase (NEGATIVE) Urine WBC (Auto) (0-5) /HPF Urine RBC (Auto) (0-2) /HPF U Hyaline Cast (Auto) (0-2) /LPF U Epithel Cells (Auto) (FEW) /HPF Urine Bacteria (Auto) (NEGATIVE) /HPF Urine Culture Reflexed (NO) Urine Glucose (NEGATIVE) mg/dL Urine Opiates Level (NEGATIVE) Ur Methadone (NEGATIVE) Urine Barbiturates (NEGATIVE) Ur Phencyclidine (PCP) (NEGATIVE) Urine Amphetamine (NEGATIVE) U Benzodiazepine Level (NEGATIVE) Urine Cocaine (NEGATIVE) Urine Marijuana (THC) (NEGATIVE) - Progress Progress: improved Progress Note: 02/27/19 14:20 Pt was started on IV saline, given IV Fentanyl, Zofran, pain controlled, became hypoxaemic, given Duoneb treatment and nasal oxygen, started on IV Levaquin and Flagyl after reviewing her labs and CT result, called Dr Rouse, discussed our results and her current condition, he agreed to admit her for observation, patient and her daughter were informed and agreed. Discussed with : Nasim Will see patient in: hospital (observation) Counseled pt/family regarding: lab results, diagnosis, rad results - Departure Departure Disposition: Observation Clinical Impression: Diverticulitis Condition: Stable Critical Care Time: No
[2019-02-27 11:11] LABS: BASOPHIL % 0.4 % (0.0-0.4); Basophil (Absolute #) 0.04 (0-0.4); Eosinophil % 3.4 % (0.00-5.0); Eosinophil (Absolute #) 0.35 (0-0.5); Granulocyte Absolute (ANC) 7.49 (1.4-6.9); Granulocytes % 73.3 % (36.0-66.0); Hemoglobin 10.6 gm/dl (12.0-16.0); Lymphocyte (Absolute #) 1.35 (1.0-4.6); Lymphocytes % 13.2 % (24.0-44.0); Mean Cell Volume 89.1 fl (78-100); Mean Corpuscular Hgb Concent. 30.3 g/dl (32-36); Mean Platelet Volume 10.4 fl (6-9.5); Monocyte (Absolute #) 0.99 (0.0-1.3); Monocytes % 9.7 % (0.0-12.0); Platelet Count 222 K/mm3 (150-450); Red Blood Count 3.93 M/mm3 (4.1-5.4); Red Cell Distribution Width 16.9 % (11.5-14.0); White Blood Count 10.2 K/mm3 (4.0-10.5)
[2019-02-27 11:23] LABS: Mean Corpuscular Hemoglobin 26.9 pg (26-32)
[2019-02-27] MEDS ORDERED: SUBLIMAZE 100 MCG/2 ML IV ONE (11:43)
[2019-02-27] MEDS ORDERED: Zofran 4 MG/2 ML VIAL IV ONE (11:43)
[2019-02-27 11:46] LABS: Appearance CLEAR (CLEAR); Bilirubin NEGATIVE (NEGATIVE); Blood MODERATE Ery/ul (0-5); Glucose NEGATIVE (NEGATIVE); Hyaline Casts 0-2 /LPF (0-2); Ketones NEGATIVE (NEGATIVE); Leukocyte Esterase NEGATIVE (NEGATIVE); Nitrite NEGATIVE (NEGATIVE); Protein,Urine Dip NEGATIVE (Negative); Specific Gravity 1.012 (1.005-1.025); Urobilinogen NEGATIVE mg/dL (0-1); WBC 0-2 /HPF (0-5)
[2019-02-27 12:09] LABS: ISTAT CREA 2.2 mg/dL (0.6-1.3)
[2019-02-27] MEDS ORDERED: Zofran 4 MG/2 ML VIAL ONE (12:20)
[2019-02-27] MEDS ORDERED: SUBLIMAZE 100 MCG/2 ML ONE (12:21)
--- NOTE | 2019-02-27 13:05 | XRAY ---
Indication: Left lower quadrant pain. Little urine output. Multiple contiguous axial images obtained through the abdomen and pelvis without contrast as ordered. Comparison: February 04, 2015. Lung bases demonstrates new bilateral lower lobe patchy interstitial alveolar opacities. No consolidation or effusion. Heart is now enlarged with partially visualized pacer lead. Noncontrasted stomach and bowel loops appear nonobstructed. Again scattered descending and sigmoid diverticulosis. New focus of moderate mid to distal descending diverticulitis with tiny free fluid. No walled off fluid collection or free air. Interval left nephrectomy. New Le[place] catheter empties the bladder. Stable tiny gallstones/gravel. Remaining liver, gallbladder, pancreas, spleen, adrenal glands, right kidney, right ureter, and uterus appear unremarkable for noncontrast exam. Again heavy scattered vascular calcifications and tortuous/ectatic aorta. Osseous structures again demonstrates osteopenia, mild degenerative changes throughout the thoracolumbar spine, and small left sacrum bone island. Impression: 1. Again left hemicolon diverticulosis with new focus diverticulitis distal descending colon. No complications. 2. Stable tiny gallstones/gravel. 3. Interval left total nephrectomy with Lea catheter in situ. 4. New bibasilar patchy interstitial alveolar opacities. 5. New cardiomegaly. CT DI 23.68
[2019-02-27] MEDS ORDERED: DUONEB 0.5-3 MG/3 ml Neb IH ONE ×2 (13:24→13:35)
[2019-02-27 13:37] LABS: ALBUMIN 3.8 g/dL (3.5-5.0); ALKALINE PHOSPHATASE 113 U/L (38-126); ANION GAP 13.1 MEQ/L (5-15); Calcium 9.5 mg/dL (8.4-10.2); LIPASE 57 U/L (23-300); SGOT/AST 46 U/L (14-36); SGPT/ALT 27 U/L (0-35); Total Protein 7.5 g/dL (6.3-8.2)
[2019-02-27 13:39] LABS: Amphetamine,Urine NEGATIVE (NEGATIVE); Barbiturate,Urine NEGATIVE (NEGATIVE); Benzodiazepine,Urine NEGATIVE (NEGATIVE); Cocaine,Urine NEGATIVE (NEGATIVE); Methadone,Urine NEGATIVE (NEGATIVE); Opiate,Urine POSITIVE (NEGATIVE); PCP,Urine NEGATIVE (NEGATIVE); THC,Urine NEGATIVE (NEGATIVE)
[2019-02-27] MEDS ORDERED: FLAGYL 500 MG IVPB 500 MG/100 ML BAG IV STA (14:06)
[2019-02-27] MEDS ORDERED: Levofloxacin 500MG/100ML D5W 500 MG/100 ML BAG IV STA (14:06)
[2019-02-27] MEDS ORDERED: FLAGYL 500 MG IVPB 500 MG/100 ML BAG IV ONE (14:15)
[2019-02-27] MEDS ORDERED: MORPHINE SULFATE 2 MG INJ IV PRN (14:26)
[2019-02-27] MEDS ORDERED: Zofran 4 MG/2 ML VIAL IV PRN (14:26)
[2019-02-27] MEDS ORDERED: TYLENOL 325 MG PO PRN (14:26)
[2019-02-27] MEDS ORDERED: PROVENTIL 2.5 MG/3 ML NEB IH PRN (14:26)
[2019-02-27] MEDS ORDERED: Klonopin 0.5 MG PO PRN (16:49)
[2019-02-27] MEDS: Namenda 5 MG PO SCH (17:20)
[2019-02-27] MEDS: ECOTRIN 81 MG PO SCH (17:20)
[2019-02-27] MEDS: Aricept 10 MG PO SCH (17:20)
[2019-02-27] MEDS: Protonix 40MG Tablet PO SCH (17:20)
[2019-02-27] MEDS: Cozaar 50 MG PO SCH (17:21)
[2019-02-27] MEDS: NORVASC 5 MG PO SCH (17:21)
[2019-02-27] MEDS: Lexapro 10 MG PO SCH (17:24)
[2019-02-27] MEDS: FLAGYL 500 MG IVPB 500 MG/100 ML BAG IV SCH ×2 (19:17→23:34)
[2019-02-27] MEDS: DUONEB 0.5-3 MG/3 ml Neb IH SCH (19:30)
[2019-02-27] MEDS: ELIQUIS 2.5 MG TABLET PO SCH (21:15)
[2019-02-27] MEDS: zyPREXA 5MG TABLET PO SCH (21:15)
[2019-02-27] MEDS: Lantus Insulin SQ SCH (21:15)
[2019-02-27] MEDS ORDERED: NON-FORMULARY ITEM (Insulin Detemir [Levemir] 30 UNIT) SQ SCH (22:00)
[2019-02-27] MEDS ORDERED: OLANZAPINE 10 MG PO SCH (22:00)
[2019-02-27] MEDS: Sodium Chloride 0.9% 1000 ML 1,000 ML IV SCH (23:34)
[2019-02-28] MEDS: FLAGYL 500 MG IVPB 500 MG/100 ML BAG IV SCH ×3 (05:51→17:42)
[2019-02-28 05:57] LABS: BASOPHIL % 0.5 % (0.0-0.4); Basophil (Absolute #) 0.04 (0-0.4); Eosinophil (Absolute #) 0.24 (0-0.5); Granulocyte Absolute (ANC) 5.86 (1.4-6.9); Granulocytes % 72.9 % (36.0-66.0); Hematocrit 32.1 % (35-47); Hemoglobin 9.4 gm/dl (12.0-16.0); Lymphocyte (Absolute #) 1.08 (1.0-4.6); Lymphocytes % 13.4 % (24.0-44.0); Mean Cell Volume 89.7 fl (78-100); Mean Corpuscular Hgb Concent. 29.3 g/dl (32-36); Mean Platelet Volume 10.4 fl (6-9.5); Monocyte (Absolute #) 0.82 (0.0-1.3); Monocytes % 10.2 % (0.0-12.0); Platelet Count 212 K/mm3 (150-450); Red Blood Count 3.58 M/mm3 (4.1-5.4); Red Cell Distribution Width 16.7 % (11.5-14.0)
[2019-02-28 06:00] LABS: Mean Corpuscular Hemoglobin 26.2 pg (26-32)
[2019-02-28 06:14] LABS: ANION GAP 10.5 MEQ/L (5-15); Calcium 8.8 mg/dL (8.4-10.2); Creatinine 1 1.85 mg/dL (0.52-1.04); Potassium 4.3 mmol/L (3.5-5.1)
[2019-02-28] MEDS ORDERED: DUONEB 0.5-3 MG/3 ml Neb IH ONE (06:39)
[2019-02-28] MEDS: DUONEB 0.5-3 MG/3 ml Neb IH SCH ×2 (06:54→19:58)
--- NOTE | 2019-02-28 09:19 | PCM.HP ---
History of Present Illness - Chief Complaint Chief Complaint: Diverticulitis History of Present Illness: is a 79 year old female pt of Dr. Rouse with dementia, renal cancer ( and recent nephrectomy), COPD, ACEi aneioedema, HTN, CHF, DMII, afib, pacemaker , and hx TIA/CVA who was admitted through ER with LLQ pain and found to have diverticulitis. She is a very poor historian. She apparently had been complaining of pain and wnet 2 d wihtout a BM (usually has BM daily). On CT abd/pelvis she was found to have diverticulitis of the distal descending colon. Was started on levaquin and flagyl. Also found to have bibasilar patchy interstitial alveolar opacities and new cardiomegaly. This morning pt says she is hungry and denies pain. She knows her location but disoriented as to time. - Review of Systems All Other Systems: Unable due to dementia Medications & Allergies Home Medications: Home Medication List Insulin Detemir [Levemir] 30 unit SQ BID 02/23/15 [History Confirmed 02/27/19] Amlodipine Besylate 5 mg [Norvasc 5 mg] 5 mg PO DAILY 02/08/18 [History Confirmed 02/27/19] Apixaban [Eliquis 5 mg Tablet] 2.5 mg PO BID 02/08/18 [History Confirmed 02/27/19] Aspirin 81 gm Chew [Baby Aspirin 81 mg Chew] 81 mg PO DAILY 02/08/18 [ History Confirmed 02/27/19] Atorvastatin Calcium 40 mg PO HS 02/08/18 [History Confirmed 02/27/19] Bumetanide 1 mg [Bumex 1 mg] 1 mg PO DAILY 02/08/18 [History Confirmed ] Donepezil HCl [Aricept] 5 mg PO DAILY 02/08/18 [History Confirmed 02/27/19] Escitalopram Oxalate 10 mg [Lexapro 10 MG] 10 mg PO DAILY 02/08/18 [History Confirmed 02/27/19] Folic Acid 1 mg [Folate 1 mg] 1 mg PO DAILY 02/08/18 [History Confirmed ] Insulin Aspart [NovoLOG Insulin] 10 units SQ TIDWM 02/08/18 [History Confirmed 02/27/19] Losartan Potassium [Cozaar] 100 mg PO DAILY 02/08/18 [History Confirmed 02/27/19 ] Memantine HCl 5 mg PO DAILY 02/08/18 [History Confirmed 02/27/19] Nitroglycerin 0.4 mg Tablet [Nitrostat 0.4 MG Tablet] 1 tablet SL UD PRN 02/08/18 [History Confirmed 02/27/19] PANTOPRAZOLE 40 mg Tablet [Protonix 40MG Tablet] 40 mg PO DAILY 02/08/18 [ History Confirmed 02/27/19] Cefuroxime Axetil 500 mg [Ceftin 500 mg] 500 mg PO BID 02/27/19 [History Confirmed 02/27/19] Cholecalciferol (Vitamin D3) [Vitamin D] 1,000 unit PO DAILY 02/27/19 [ History Confirmed 02/27/19] Clonazepam 0.5 mg [Klonopin 0.5 MG] 0.5 mg PO TIDPRN PRN 02/27/19 [ History Confirmed 02/27/19] Guaifenesin/Pseudoephedrne HCl [Sm Mucus Relief D ER 600-60 mg] 1 each PO Q12H 02/27/19 [History Confirmed 02/27/19] Olanzapine 10 mg PO HS 02/27/19 [History Confirmed 02/27/19] Potassium Chloride 7.5 ml PO BID 02/27/19 [History Confirmed 02/27/19] Allergies/Adverse Reactions: Allergies Allergy/AdvReac Type Severity Reaction Status Date / Time carvedilol Allergy Verified 02/27/19 15:08 - Past Medical History Past Medical History: Yes Neurological History: Alzheimer's Disease, Dementia, Peripheral Neuropathy ENT History: Cataracts Cardiac History: Hypertension Respiratory History: CHF, COPD, Sleep Apnea, Other Endocrine Medical History: Diabetes Type II Musculoskelatal History: Arthritis GI Medical History: Diverticulitis, Irritable Bowel History: No Pertinent History, Renal Disease Pyscho-Social History: No Pertinent History Reproductive Disorders: No Pertinent History Comment: pt family states pt noncompliant with cpap - Female History Hx Last Menstrual Period: post Are you now?: No - Past Surgical History Past Surgical History: Yes Neuro Surgical History: No Pertinent History Cardiac History: No Pertinent History, Internal Defibrillator, Pacemaker Respiratory Surgery: No Pertinent History GI Surgical History: No Pertinent History Genitourinary Surgical Hx: Other Musculskeletal Surgical Hx: No Pertinent History Female Surgical History: Tubal Ligation Other Surgical History: ear surgery, cataract surgery, bladder tuck,lasik surgery - Social History Smoking Status: Former smoker How long have you smoked: 50 years Exposure to second hand smoke: No Alcohol: None Drug Use: none - Physical Exam Vital Signs: Vital Signs - 24 hr Temp Pulse Resp BP Pulse Ox 02/28/19 07:17 98.1 F 63 20 121/59 90 L 02/28/19 04:00 98.9 F 65 22 129/61 91 L 02/28/19 00:00 99.3 F 60 18 99/52 94 L 02/27/19 20:00 98.4 F 64 20 174/79 96 02/27/19 19:55 94 L 02/27/19 19:32 61 20 96 02/27/19 15:40 96 02/27/19 15:10 98.7 F 61 22 128/72 94 L 02/27/19 15:04 98.7 F 61 22 128/72 94 L 02/27/19 14:37 98.6 F 64 19 148/73 98 02/27/19 14:24 97 02/27/19 14:22 67 151/75 96 02/27/19 13:59 65 20 147/76 95 02/27/19 13:44 61 18 93 L 02/27/19 12:49 99.8 F 61 21 140/70 97 02/27/19 11:38 99.2 F 61 20 130/64 96 02/27/19 10:49 99.2 F 62 20 137/73 97 02/27/19 10:41 98.2 F 63 22 137/73 96 Oxygen-Last 24 hours O2 Percentage 4 Liters = 36% O2 Percentage 4 Liters = 36% O2 Percentage 4 Liters = 36% O2 Percentage 5 Liters = 40% O2 Percentage 5 Liters = 40% O2 Percentage 5 Liters = 40% O2 Percentage 2 Liters = 28% O2 Percentage 5 Liters = 40% O2 Percentage 5 Liters = 40% O2 Percentage 2 Liters = 28% O2 Percentage 2 Liters = 28% O2 Percentage 2 Liters = 28% General Appearance: no apparent distress, alert Neurologic Exam: disoriented, other (pt unable to sit herself up for exam), No cooperative Ears, Nose, Throat Exam: moist mucous membranes Neck Exam: normal inspection Respiratory Exam: normal breath sounds, lungs clear, No crackles/rales, No rhonchi, No wheezing Cardiovascular Exam: regular rate/rhythm, normal heart sounds, No murmur Gastrointestinal/Abdomen Exam: soft, tenderness (LUQ and LLQ), No normal bowel sounds (hyperactive), No distention, No mass, No guarding, No rebound Back Exam: normal inspection, No rash Extremity Exam: No pedal edema, No swelling Skin Exam: normal color, warm, dry, No rash Results - Labs Lab/Micro Results: Accuchecks Date 02/27/19 Time 15:05 Accucheck Value: 158 Accucheck Value: 148 Accucheck Value: 104 Lab Results-Last 24 Hours 02/27/19 02/27/19 02/27/19 Range/Units 10:58 10:58 11:00 WBC 10.2 (4.0-10.5) K/mm3 RBC 3.93 L (4.1-5.4) M/mm3 Hgb 10.6 L (12.0-16.0) gm/dl Hct 35.0 (35-47) % MCV 89.1 (78-100) fl MCH 26.9 (26-32) pg MCHC 30.3 L (32-36) g/dl RDW 16.9 H (11.5-14.0) % Plt Count 222 (150-450) K/mm3 MPV 10.4 H (6-9.5) fl Gran % 73.3 H (36.0-66.0) % Eos # (Auto) 0.35 (0-0.5) Absolute Lymphs (auto) 1.35 (1.0-4.6) Absolute Monos (auto) 0.99 (0.0-1.3) Lymphocytes % 13.2 L (24.0-44.0) % Monocytes % 9.7 (0.0-12.0) % Eosinophils % 3.4 (0.00-5.0) % Basophils % 0.4 (0.0-0.4) % Absolute Granulocytes 7.49 H (1.4-6.9) Basophils # 0.04 (0-0.4) Sodium (137-145) mmol/L Sodium Direct 141 (138-146) mmol/L Potassium 4.0 (3.5-4.9) mmol/L Chloride 104 (98-109) mmol/L Carbon Dioxide 25 (24-29) mmol/L Anion Gap 13.1 (5-15) MEQ/L BUN (7-17) mg/dL Venous BUN 41 H (8-26) mg/dL Creatinine 2.2 H (0.6-1.3) mg/dL Estimated GFR 25.9 ML/MIN Glucose 116 H (70-105) mg/dL Lactic Acid (0.4-2.0) Calcium 9.5 (8.4-10.2) mg/dL Ionized Calcium 1.24 (1.12-1.32) mmol/L Total Bilirubin 0.40 (0.2-1.3) mg/dL AST 46 H (14-36) U/L ALT 27 (0-35) U/L Alkaline Phosphatase 113 (38-126) U/L Serum Total Protein 7.5 (6.3-8.2) g/dL Albumin 3.8 (3.5-5.0) g/dL Lipase 57 (23-300) U/L Urine Color (YELLOW) Urine Appearance (CLEAR) Urine pH (5-6) Ur Specific Schulter (1.005-1.025) Urine Protein (Negative) Urine Ketones (NEGATIVE) Urine Blood (0-5) Wilbert/ul Urine Nitrite (NEGATIVE) Urine Bilirubin (NEGATIVE) Urine Urobilinogen (0-1) mg/dL Ur Leukocyte Esterase (NEGATIVE) Urine WBC (Auto) (0-5) /HPF Urine RBC (Auto) (0-2) /HPF U Hyaline Cast (Auto) (0-2) /LPF U Epithel Cells (Auto) (FEW) /HPF Urine Bacteria (Auto) (NEGATIVE) /HPF Urine Culture Reflexed (NO) Urine Glucose (NEGATIVE) mg/dL Urine Opiates Level (NEGATIVE) Ur Methadone (NEGATIVE) Urine Barbiturates (NEGATIVE) Ur Phencyclidine (PCP) (NEGATIVE) Urine Amphetamine (NEGATIVE) U Benzodiazepine Level (NEGATIVE) Urine Cocaine (NEGATIVE) Urine Marijuana (THC) (NEGATIVE) 02/27/19 02/27/19 02/27/19 Range/Units 11:00 11:00 11:29 WBC (4.0-10.5) K/mm3 RBC (4.1-5.4) M/mm3 Hgb (12.0-16.0) gm/dl Hct (35-47) % MCV (78-100) fl MCH (26-32) pg MCHC (32-36) g/dl RDW (11.5-14.0) % Plt Count (150-450) K/mm3 MPV (6-9.5) fl Gran % (36.0-66.0) % Eos # (Auto) (0-0.5) Absolute Lymphs (auto) (1.0-4.6) Absolute Monos (auto) (0.0-1.3) Lymphocytes % (24.0-44.0) % Monocytes % (0.0-12.0) % Eosinophils % (0.00-5.0) % Basophils % (0.0-0.4) % Absolute Granulocytes (1.4-6.9) Basophils # (0-0.4) Sodium (137-145) mmol/L Sodium Direct (138-146) mmol/L Potassium (3.5-4.9) mmol/L Chloride (98-109) mmol/L Carbon Dioxide (24-29) mmol/L Anion Gap (5-15) MEQ/L BUN (7-17) mg/dL Venous BUN (8-26) mg/dL Creatinine (0.6-1.3) mg/dL Estimated GFR ML/MIN Glucose (70-105) mg/dL Lactic Acid 1.3 (0.4-2.0) Calcium (8.4-10.2) mg/dL Ionized Calcium (1.12-1.32) mmol/L Total Bilirubin (0.2-1.3) mg/dL AST (14-36) U/L ALT (0-35) U/L Alkaline Phosphatase (38-126) U/L Serum Total Protein (6.3-8.2) g/dL Albumin (3.5-5.0) g/dL Lipase (23-300) U/L Urine Color YELLOW (YELLOW) Urine Appearance CLEAR (CLEAR) Urine pH 5.0 (5-6) Ur Specific Schulter 1.012 (1.005-1.025) Urine Protein NEGATIVE (Negative) Urine Ketones NEGATIVE (NEGATIVE) Urine Blood MODERATE (0-5) Wilbert/ul Urine Nitrite NEGATIVE (NEGATIVE) Urine Bilirubin NEGATIVE (NEGATIVE) Urine Urobilinogen NEGATIVE (0-1) mg/dL Ur Leukocyte Esterase NEGATIVE (NEGATIVE) Urine WBC (Auto) 0-2 (0-5) /HPF Urine RBC (Auto) 6-10 (0-2) /HPF U Hyaline Cast (Auto) 0-2 (0-2) /LPF U Epithel Cells (Auto) NONE (FEW) /HPF Urine Bacteria (Auto) NONE (NEGATIVE) /HPF Urine Culture Reflexed NO (NO) Urine Glucose NEGATIVE (NEGATIVE) mg/dL Urine Opiates Level POSITIVE (NEGATIVE) Ur Methadone NEGATIVE (NEGATIVE) Urine Barbiturates NEGATIVE (NEGATIVE) Ur Phencyclidine (PCP) NEGATIVE (NEGATIVE) Urine Amphetamine NEGATIVE (NEGATIVE) U Benzodiazepine Level NEGATIVE (NEGATIVE) Urine Cocaine NEGATIVE (NEGATIVE) Urine Marijuana (THC) NEGATIVE (NEGATIVE) 02/28/19 02/28/19 Range/Units 05:12 05:12 WBC 8.0 (4.0-10.5) K/mm3 RBC 3.58 L (4.1-5.4) M/mm3 Hgb 9.4 L (12.0-16.0) gm/dl Hct 32.1 L (35-47) % MCV 89.7 (78-100) fl MCH 26.2 (26-32) pg MCHC 29.3 L (32-36) g/dl RDW 16.7 H (11.5-14.0) % Plt Count 212 (150-450) K/mm3 MPV 10.4 H (6-9.5) fl Gran % 72.9 H (36.0-66.0) % Eos # (Auto) 0.24 (0-0.5) Absolute Lymphs (auto) 1.08 (1.0-4.6) Absolute Monos (auto) 0.82 (0.0-1.3) Lymphocytes % 13.4 L (24.0-44.0) % Monocytes % 10.2 (0.0-12.0) % Eosinophils % 3.0 (0.00-5.0) % Basophils % 0.5 (0.0-0.4) % Absolute Granulocytes 5.86 (1.4-6.9) Basophils # 0.04 (0-0.4) Sodium 144 (137-145) mmol/L Sodium Direct (138-146) mmol/L Potassium 4.3 (3.5-4.9) mmol/L Chloride 112 H (98-109) mmol/L Carbon Dioxide 26 (24-29) mmol/L Anion Gap 10.5 (5-15) MEQ/L BUN 28 H (7-17) mg/dL Venous BUN (8-26) mg/dL Creatinine 1.85 H (0.6-1.3) mg/dL Estimated GFR 27.9 ML/MIN Glucose 119 H (70-105) mg/dL Lactic Acid (0.4-2.0) Calcium 8.8 (8.4-10.2) mg/dL Ionized Calcium (1.12-1.32) mmol/L Total Bilirubin (0.2-1.3) mg/dL AST (14-36) U/L ALT (0-35) U/L Alkaline Phosphatase (38-126) U/L Serum Total Protein (6.3-8.2) g/dL Albumin (3.5-5.0) g/dL Lipase (23-300) U/L Urine Color (YELLOW) Urine Appearance (CLEAR) Urine pH (5-6) Ur Specific Schulter (1.005-1.025) Urine Protein (Negative) Urine Ketones (NEGATIVE) Urine Blood (0-5) Wilbert/ul Urine Nitrite (NEGATIVE) Urine Bilirubin (NEGATIVE) Urine Urobilinogen (0-1) mg/dL Ur Leukocyte Esterase (NEGATIVE) Urine WBC (Auto) (0-5) /HPF Urine RBC (Auto) (0-2) /HPF U Hyaline Cast (Auto) (0-2) /LPF U Epithel Cells (Auto) (FEW) /HPF Urine Bacteria (Auto) (NEGATIVE) /HPF Urine Culture Reflexed (NO) Urine Glucose (NEGATIVE) mg/dL Urine Opiates Level (NEGATIVE) Ur Methadone (NEGATIVE) Urine Barbiturates (NEGATIVE) Ur Phencyclidine (PCP) (NEGATIVE) Urine Amphetamine (NEGATIVE) U Benzodiazepine Level (NEGATIVE) Urine Cocaine (NEGATIVE) Urine Marijuana (THC) (NEGATIVE) Microbiology 02/27/19 11:00 Urine Culture - Preliminary Catherized NO GROWTH TO DATE Accuchecks Date 02/27/19 Time 15:05 Accucheck Value: 158 Accucheck Value: 148 Accucheck Value: 104 - Radiology Impressions Radiology Exams & Impressions: Radiology Procedures Category Date Time Status ABDOMEN AND PELVIS W/0 CONTRAS [CT] Stat Exams 02/27/19 12:19 Completed - Other Procedures and Tests Respiratory Therapy 02/27/19 13:43 Respiratory Therapy Assessment DAILY 02/27/19 14:26 Oxygen Nasal Cannula 2 lpm 02/27/19 15:40 Peak Expiratory Flow Rate ONCE 02/27/19 21:00 BiPap/CPAP ROUTINE Assessment/Plan (1) Diverticulitis Current Visit: Yes Status: Acute Assessment & Plan: ON levaquin and flagyl day #2. No complaint of pain at this time so will start advancing her diet. Code(s): K57.92 - DVTRCLI OF INTEST, PART UNSP, W/O PERF OR ABSCESS W/O BLEED (2) Hypertension Current Visit: No Status: Chronic Qualifiers: Hypertension type: essential hypertension Qualified Code(s): I10 - Essential (primary) hypertension Code(s): I10 - ESSENTIAL (PRIMARY) HYPERTENSION (3) Alzheimer's dementia with behavioral disturbance Current Visit: No Status: Chronic Code(s): G30.9 - ALZHEIMER'S DISEASE, UNSPECIFIED; F02.81 - DEMENTIA IN OTH DISEASES CLASSD ELSWHR W BEHAVIORAL DISTURB (4) Atrial fibrillation Current Visit: No Status: Chronic Qualifiers: Atrial fibrillation type: paroxysmal Qualified Code(s): I48.0 - Paroxysmal atrial fibrillation Code(s): I48.91 - UNSPECIFIED ATRIAL FIBRILLATION (5) Diabetes Current Visit: No Status: Chronic Qualifiers: Diabetes mellitus type: type 2 Diabetes mellitus mcc insulin use: without intermediate project manager use Diabetes mellitus complication status: without complication Qualified Code(s): E11.9 - Type 2 diabetes mellitus without complications Code(s): E11.9 - TYPE 2 DIABETES MELLITUS WITHOUT COMPLICATIONS (6) Essential hypertension Current Visit: No Status: Chronic Code(s): I10 - ESSENTIAL (PRIMARY) HYPERTENSION (7) Cardiomegaly Current Visit: Yes Status: Acute Assessment & Plan: New, on CT - will let Dr. Rouse and family decide if any further workup is desired. Code(s): I51.7 - CARDIOMEGALY
[2019-02-28] MEDS: Lexapro 10 MG PO SCH (09:48)
[2019-02-28] MEDS: NORVASC 5 MG PO SCH (09:48)
[2019-02-28] MEDS: ELIQUIS 2.5 MG TABLET PO SCH ×2 (09:48→22:43)
[2019-02-28] MEDS: Namenda 5 MG PO SCH (09:48)
[2019-02-28] MEDS: Cozaar 50 MG PO SCH (09:48)
[2019-02-28] MEDS: Protonix 40MG Tablet PO SCH (09:49)
[2019-02-28] MEDS: ECOTRIN 81 MG PO SCH (09:49)
[2019-02-28] MEDS: Aricept 10 MG PO SCH (09:49)
[2019-02-28] MEDS: Lantus Insulin SQ SCH ×2 (09:50→22:44)
[2019-02-28] MEDS ORDERED: NON-FORMULARY ITEM (Donepezil Hcl [Aricept] 5 MG) PO SCH (10:00)
[2019-02-28] MEDS ORDERED: NON-FORMULARY ITEM (Losartan Potassium [Cozaar] 100 MG) PO SCH (10:00)
[2019-02-28] MEDS ORDERED: BABY ASPIRIN 81 MG CHEW PO SCH (10:00)
[2019-02-28] MEDS: Sodium Chloride 0.9% 1000 ML 1,000 ML IV SCH ×2 (10:57→11:01)
[2019-02-28] MEDS: Levaquin 250MG/50ML D5W 250 MG/50 ML BAG IV SCH (14:58)
[2019-02-28] MEDS ORDERED: Levofloxacin 500MG/100ML D5W 500 MG/100 ML BAG IV SCH (15:00)
[2019-02-28] MEDS: zyPREXA 5MG TABLET PO SCH (22:43)
[2019-03-01] MEDS: FLAGYL 500 MG IVPB 500 MG/100 ML BAG IV SCH ×4 (00:01→17:37)
[2019-03-01] MEDS: Sodium Chloride 0.9% 1000 ML 1,000 ML IV SCH (00:02)
[2019-03-01] MEDS: DUONEB 0.5-3 MG/3 ml Neb IH SCH ×2 (07:04→19:42)
--- NOTE | 2019-03-01 09:14 | PCM.NOTE ---
Date and Time: 03/01/19 09 Subjective Assessment: patient c/o shortness of breath. complained of left lower abdominal pain overnight per family. she denies pain at this time. Objective Exam General Appearance: no apparent distress, alert Neurologic Exam: alert Skin Exam: normal color, warm, dry Respiratory Exam: crackles/rales Cardiovascular Exam: regular rate/rhythm, normal heart sounds Gastrointestinal/Abdomen Exam: soft, No tenderness, No distention, No guarding, No rebound Extremity Exam: normal inspection, normal range of motion OBJECTIVE DATA Vital Signs: Vital Signs - 24 hr Temp Pulse Resp BP Pulse Ox 03/01/19 07:45 98.1 F 60 16 111/56 91 L 03/01/19 07:06 60 16 91 L 03/01/19 04:15 98.1 F 60 18 133/70 90 L 03/01/19 00:14 97.5 F 60 20 131/63 92 L 02/28/19 20:05 98.2 F 64 24 136/67 93 L 02/28/19 20:01 65 18 95 02/28/19 16:00 98.7 F 67 18 127/61 97 02/28/19 11:30 98.2 F 65 18 122/56 95 Oxygen-Last 24 hours O2 Percentage 4 Liters = 36% O2 Percentage 4 Liters = 36% O2 Percentage 4 Liters = 36% O2 Percentage 3 Liters = 32% O2 Percentage 3 Liters = 32% Pain Assessment - Last Documented Pain Intensity 3 Pain Scale Used 0-10 Pain Scale Intake and Output: Intake & Output 02/26/19 02/27/19 02/28/19 03/01/19 11:59 11:59 11:59 11:59 Intake Total 3081 3670 Output Total 3000 2200 Balance 81 1470 Weight 90.718 kg 96 kg Lab Results: Accuchecks Date 03/01/19 Date 02/28/19 Date 02/28/19 Time 07:30 Time 16:30 Time 11:30 Accucheck Value: 94 Accucheck Value: 145 Accucheck Value: 168 Accucheck Value: 164 Lab Results-Last 24 Hours 02/28/19 Range/Units 05:00 Hemoglobin A1c 6.25 H (4.5-6.0) % Radiology Exams: Radiology Procedures Category Date Time Status ABDOMEN AND PELVIS W/0 CONTRAS [CT] Stat Exams 02/27/19 12:19 Completed CHEST 1 VIEW (PORTABLE) Urgent Exams 03/01/19 09:03 Ordered ECHO W/2D AND DOPPLER [US] Routine Exams 03/01/19 Ordered Multi-Disciplinary Progress Notes: Multi-Disciplinary Progress Notes 03/01/19 08:28 Case Management Note by Britney Burt information given to pt re: chronic care coordination. Initialized on 03/01/19 08:28 - END OF NOTE 02/28/19 11:03 Pharmacy Note by Amilcar Hill Levaquin dose reduced to 250mg per renal dosing policy. Estimated CRCL is 20ml/ min. Initialized on 02/28/19 11:03 - END OF NOTE Assessment/Plan (1) Diverticulitis Current Visit: Yes Status: Acute Assessment & Plan: continue levaquin and flagyl, appears to be improving clinically. tolerating full liquids Code(s): K57.92 - DVTRCLI OF INTEST, PART UNSP, W/O PERF OR ABSCESS W/O BLEED (2) CHF (congestive heart failure) Current Visit: Yes Status: Acute Assessment & Plan: check echo, d/c iv fluids clinically appears volume overloaded. lasix 20mg iv. check bmp today and chest xray Code(s): I50.9 - HEART FAILURE, UNSPECIFIED (3) Atrial fibrillation Current Visit: No Status: Chronic Qualifiers: Atrial fibrillation type: paroxysmal Qualified Code(s): I48.0 - Paroxysmal atrial fibrillation Code(s): I48.91 - UNSPECIFIED ATRIAL FIBRILLATION
--- NOTE | 2019-03-01 09:29 | XRAY ---
Indication: Short of breath. Cardiomegaly. Pacemaker. Comparison: February 08, 2018. Portable chest demonstrates new bibasilar infiltrates/atelectasis left greater than right. Also new small left effusion. Heart remains borderline enlarged with new left dual-lead pacemaker. Bony thorax intact again with mild osteopenia and degenerative changes. Impression: 1. New bibasilar infiltrates/atelectasis and left effusion. 2. Stable borderline cardiomegaly with new left pacemaker.
[2019-03-01] MEDS: Lantus Insulin SQ SCH ×2 (10:22→22:18)
[2019-03-01] MEDS: Cozaar 50 MG PO SCH (10:22)
[2019-03-01] MEDS: NORVASC 5 MG PO SCH (10:22)
[2019-03-01] MEDS: Lasix 20 MG/2 ML IV SCH (10:22)
[2019-03-01] MEDS: ELIQUIS 2.5 MG TABLET PO SCH ×2 (10:22→22:18)
[2019-03-01] MEDS: Protonix 40MG Tablet PO SCH (10:23)
[2019-03-01] MEDS: Namenda 5 MG PO SCH (10:23)
[2019-03-01] MEDS: Aricept 10 MG PO SCH (10:23)
[2019-03-01] MEDS: ECOTRIN 81 MG PO SCH (10:23)
[2019-03-01] MEDS: Lexapro 10 MG PO SCH (10:23)
[2019-03-01 10:48] LABS: ANION GAP 10.5 MEQ/L (5-15); Calcium 8.8 mg/dL (8.4-10.2); Creatinine 1 1.8 mg/dL (0.52-1.04); Potassium 4.4 mmol/L (3.5-5.1)
[2019-03-01] MEDS: NovoLOG Insulin SQ PRN ×2 (12:22→22:19)
[2019-03-01] MEDS: Levaquin 250MG/50ML D5W 250 MG/50 ML BAG IV SCH (15:04)
[2019-03-01] MEDS: zyPREXA 5MG TABLET PO SCH (22:18)
[2019-03-02] MEDS: FLAGYL 500 MG IVPB 500 MG/100 ML BAG IV SCH ×4 (02:50→18:43)
[2019-03-02 04:45] LABS: BASOPHIL % 0.6 % (0.0-0.4); Basophil (Absolute #) 0.04 (0-0.4); Eosinophil % 7.1 % (0.00-5.0); Eosinophil (Absolute #) 0.49 (0-0.5); Granulocyte Absolute (ANC) 4.41 (1.4-6.9); Granulocytes % 63.9 % (36.0-66.0); Hematocrit 31.6 % (35-47); Hemoglobin 9.5 gm/dl (12.0-16.0); Lymphocyte (Absolute #) 1.22 (1.0-4.6); Lymphocytes % 17.7 % (24.0-44.0); Mean Corpuscular Hgb Concent. 30.1 g/dl (32-36); Mean Platelet Volume 10.1 fl (6-9.5); Monocyte (Absolute #) 0.74 (0.0-1.3); Monocytes % 10.7 % (0.0-12.0); Platelet Count 221 K/mm3 (150-450); Red Blood Count 3.55 M/mm3 (4.1-5.4); Red Cell Distribution Width 16.4 % (11.5-14.0); White Blood Count 6.9 K/mm3 (4.0-10.5)
[2019-03-02 04:47] LABS: Mean Corpuscular Hemoglobin 26.7 pg (26-32)
[2019-03-02 04:59] LABS: ANION GAP 9.5 MEQ/L (5-15); Calcium 9.1 mg/dL (8.4-10.2); Creatinine 1 1.76 mg/dL (0.52-1.04); Potassium 3.7 mmol/L (3.5-5.1)
[2019-03-02] MEDS: DUONEB 0.5-3 MG/3 ml Neb IH SCH ×2 (06:40→20:16)
--- NOTE | 2019-03-02 08:43 | PCM.NOTE ---
Date and Time: 03/02/19 08 Subjective Assessment: patient is sleeping comfortably on bipap today, received lasix yesterday, labs reviewed. Objective Exam General Appearance: no apparent distress Skin Exam: normal color, warm, dry Respiratory Exam: crackles/rales Cardiovascular Exam: regular rate/rhythm, normal heart sounds Gastrointestinal/Abdomen Exam: soft, No tenderness, No mass Extremity Exam: normal inspection, normal range of motion OBJECTIVE DATA Vital Signs: Vital Signs - 24 hr Temp Pulse Resp BP Pulse Ox 03/02/19 08:00 98.7 F 64 20 143/73 97 03/02/19 06:42 60 20 91 L 03/02/19 04:22 98.4 F 61 20 134/65 94 L 03/02/19 00:00 98.2 F 66 22 139/67 93 L 03/01/19 20:00 98.6 F 60 24 148/70 93 L 03/01/19 19:44 65 16 97 03/01/19 16:00 98.4 F 60 16 133/61 95 03/01/19 12:00 98.8 F 60 18 137/68 90 L Oxygen-Last 24 hours O2 Percentage 4 Liters = 36% O2 Percentage 4 Liters = 36% O2 Percentage 4 Liters = 36% O2 Percentage 4 Liters = 36% O2 Percentage 4 Liters = 36% Pain Assessment - Last Documented Pain Intensity 3 Pain Scale Used [facility] Intake and Output: Intake & Output 02/27/19 02/28/19 03/01/19 03/02/19 11:59 11:59 11:59 11:59 Intake Total 3081 3670 1501 Output Total 3000 2200 5200 Balance 81 1470 -3699 Weight 90.718 kg 96 kg Lab Results: Accuchecks Date 03/02/19 Date 03/01/1903/01/19 Time 07:30 Time 16:30 Time 11:30 Accucheck Value: 94 Accucheck Value: 177 Accucheck Value: 139 Accucheck Value: 206 Lab Results-Last 24 Hours 03/01/19 03/02/19 03/02/19 Range/Units 09:50 04:25 04:25 WBC 6.9 (4.0-10.5) K/mm3 RBC 3.55 L (4.1-5.4) M/mm3 Hgb 9.5 L (12.0-16.0) gm/dl Hct 31.6 L (35-47) % MCV 89.0 (78-100) fl MCH 26.7 (26-32) pg MCHC 30.1 L (32-36) g/dl RDW 16.4 H (11.5-14.0) % Plt Count 221 (150-450) K/mm3 MPV 10.1 H (6-9.5) fl Gran % 63.9 (36.0-66.0) % Eos # (Auto) 0.49 (0-0.5) Absolute Lymphs (auto) 1.22 (1.0-4.6) Absolute Monos (auto) 0.74 (0.0-1.3) Lymphocytes % 17.7 L (24.0-44.0) % Monocytes % 10.7 (0.0-12.0) % Eosinophils % 7.1 H (0.00-5.0) % Basophils % 0.6 (0.0-0.4) % Absolute Granulocytes 4.41 (1.4-6.9) Basophils # 0.04 (0-0.4) Sodium 144 141 (137-145) mmol/L Potassium 4.4 3.7 (3.5-5.1) mmol/L Chloride 112 H 108 H (98-107) mmol/L Carbon Dioxide 26 28 (22-30) mmol/L Anion Gap 10.5 9.5 (5-15) MEQ/L BUN 22 H 23 H (7-17) mg/dL Creatinine 1.80 H 1.76 H (0.52-1.04) mg/dL Estimated GFR 28.8 29.5 ML/MIN Glucose 141 H 92 (74-106) mg/dL Calcium 8.8 9.1 (8.4-10.2) mg/dL Radiology Exams: Radiology Procedures Category Date Time Status CHEST 1 VIEW (PORTABLE) Urgent Exams 03/01/19 09:03 Completed ECHO W/2D AND DOPPLER [US] Routine Exams 03/01/19 10:37 Taken Assessment/Plan (1) Diverticulitis Current Visit: Yes Status: Acute Assessment & Plan: on levaquin/flagyl Code(s): K57.92 - DVTRCLI OF INTEST, PART UNSP, W/O PERF OR ABSCESS W/O BLEED (2) CHF (congestive heart failure) Current Visit: Yes Status: Acute Assessment & Plan: IV lasix, improved on exam Code(s): I50.9 - HEART FAILURE, UNSPECIFIED (3) Atrial fibrillation Current Visit: No Status: Chronic Qualifiers: Atrial fibrillation type: paroxysmal Qualified Code(s): I48.0 - Paroxysmal atrial fibrillation Code(s): I48.91 - UNSPECIFIED ATRIAL FIBRILLATION
[2019-03-02] MEDS: Protonix 40MG Tablet PO SCH (09:56)
[2019-03-02] MEDS: Namenda 5 MG PO SCH (09:56)
[2019-03-02] MEDS: Lexapro 10 MG PO SCH (09:56)
[2019-03-02] MEDS: ELIQUIS 2.5 MG TABLET PO SCH ×2 (09:56→21:28)
[2019-03-02] MEDS: Lasix 20 MG/2 ML IV SCH (09:56)
[2019-03-02] MEDS: Cozaar 50 MG PO SCH (09:56)
[2019-03-02] MEDS: Lantus Insulin SQ SCH ×2 (09:56→21:28)
[2019-03-02] MEDS: NORVASC 5 MG PO SCH (09:56)
[2019-03-02] MEDS: Aricept 10 MG PO SCH (09:56)
[2019-03-02] MEDS: ECOTRIN 81 MG PO SCH (09:56)
[2019-03-02] MEDS ORDERED: DULCOLAX 5 MG PO ONE (10:00)
[2019-03-02] MEDS: Levaquin 250MG/50ML D5W 250 MG/50 ML BAG IV SCH (14:31)
[2019-03-02] MEDS: zyPREXA 5MG TABLET PO SCH (21:27)
[2019-03-02] MEDS: NovoLOG Insulin SQ PRN (21:28)
[2019-03-03 04:50] LABS: Hematocrit 32.6 % (35-47); Hemoglobin 9.7 gm/dl (12.0-16.0); Mean Cell Volume 88.8 fl (78-100); Mean Corpuscular Hemoglobin 26.4 pg (26-32); Mean Corpuscular Hgb Concent. 29.8 g/dl (32-36); Mean Platelet Volume 9.8 fl (6-9.5); Platelet Count 245 K/mm3 (150-450); Red Blood Count 3.67 M/mm3 (4.1-5.4); Red Cell Distribution Width 16.1 % (11.5-14.0); White Blood Count 6.5 K/mm3 (4.0-10.5)
[2019-03-03 05:00] LABS: ANION GAP 9.8 MEQ/L (5-15); Calcium 9.5 mg/dL (8.4-10.2); Creatinine 1 1.82 mg/dL (0.52-1.04); Potassium 3.7 mmol/L (3.5-5.1)
[2019-03-03 05:28] LABS: Eosinophil 13 % (0.00-3.0); Lymphocytes 18 % (24-44); Monocyte 11 % (0.0-12.0); Neutrophils 58 % (36.0-66.0); Total Cells Counted 100
[2019-03-03 05:29] LABS: Hypochromia 1+; Platelet Estimate NORMAL (NORMAL); Poikilocytosis 1+
[2019-03-03] MEDS: FLAGYL 500 MG IVPB 500 MG/100 ML BAG IV SCH ×3 (06:10→13:34)
[2019-03-03] MEDS: DUONEB 0.5-3 MG/3 ml Neb IH SCH (07:54)
--- NOTE | 2019-03-03 07:55 | ECHO ---
DATE OF PROCEDURE: 03/01/2019 CLINICAL INFORMATION: Cardiomegaly, murmur. The M-mode 2D, and Doppler echocardiogram including color flow Doppler shows the left ventricle is normal in size at 4.6 cm. The septal wall thickness is increased at 1.3 cm. The left ventricular posterior wall thickness is increased at 1.2 cm. There is no thrombus noted. There is normal contractility of the left ventricle with the ejection fraction calculated to be 62%. The mitral valve E to A inflow velocity ratio is decreased at 0.9 consistent with impaired left ventricular relaxation. The right ventricle is grossly normal. The left atrium is normal being 3.6 cm. The interatrial septum is intact. The right atrium is normal. The aortic valve is sclerotic with some decreased leaflet motion. The peak gradient is 32 mm of Mercury. There is thought to be mild aortic valvular stenosis. There is no aortic regurgitation present. There is mitral valve leaflet thickening associated with mild mitral regurgitation. There is mild to moderate tricuspid regurgitation. There is mild pulmonic regurgitation. The aortic root is normal at 3.4 cm. There is no pericardial effusion present. There is moderate pulmonary hypertension with a right ventricular systolic pressure calculated to be 41 mm of Mercury. IMPRESSION: 1) NORMAL CONTRACTILITY OF THE LEFT VENTRICLE. 2) MILD CONCENTRIC LEFT VENTRICULAR HYPERTROPHY. 3) EVIDENCE OF IMPAIRED LEFT VENTRICULAR RELAXATION. 4) MILD AORTIC STENOSIS. 5) MILD MITRAL REGURGITATION. 6) MILD TO MODERATE TRICUSPID REGURGITATION. 7) MODERATE PULMONARY HYPERTENSION. 8) MILD PULMONIC REGURGITATION.
--- NOTE | 2019-03-03 08:24 | PCM.DS ---
Discharge Summary Date of Admission: 02/28/19 15:00 Admitting Physician: JANNETTE YADAV Primary Care Provider: JANNETTE YADAV Allergies Allergies carvedilol Allergy (Verified 02/27/19 15:08) Hospital Summary - Hospital Course Hospital Course: was admitted with abd pain, found to have diverticulitis. developed some volume overload so received diuresis. doing much better and respiratory exam is at baseline today. she is tolerating po intake and had no abd pain. - Vitals & Intake/Output Vital Signs: Vital Signs Temperature 97.8 F 03/03/19 07:40 Pulse Rate 62 03/03/19 07:40 Respiratory Rate 20 03/03/19 07:40 Blood Pressure 157/74 03/03/19 07:40 O2 Sat by Pulse Oximetry 93 L 03/03/19 07:40 Oxygen-Last Documented O2 Percentage 4 Liters = 36% Intake & Output: Intake & Output 02/28/19 03/01/19 03/02/19 03/03/19 11:59 11:59 11:59 11:59 Intake Total 3081 3670 1501 2130 Output Total 3000 2200 5200 4300 Balance 81 1470 -3699 -2170 Weight 96 kg 96 kg - Lab Result Diagrams: 03/03/19 04:44 03/03/19 04:44 Lab Results-Last 24 Hrs: Accuchecks Date 03/03/19 Date 03/02/19 Date 03/02/19 Time 07:34 Time 16:30 Time 11:30 Accucheck Value: 114 Accucheck Value: 181 Accucheck Value: 196 Accucheck Value: 156 Lab Results-Last 24 Hours 03/03/19 03/03/19 Range/Units 04:44 04:44 WBC 6.5 (4.0-10.5) K/mm3 RBC 3.67 L (4.1-5.4) M/mm3 Hgb 9.7 L (12.0-16.0) gm/dl Hct 32.6 L (35-47) % MCV 88.8 (78-100) fl MCH 26.4 (26-32) pg MCHC 29.8 L (32-36) g/dl RDW 16.1 H (11.5-14.0) % Plt Count 245 (150-450) K/mm3 MPV 9.8 H (6-9.5) fl Segmented Neutrophils 58 (36.0-66.0) % Lymphocytes (Manual) 18 L (24-44) % Monocytes (Manual) 11 (0.0-12.0) % Eosinophils (Manual) 13 H (0.00-3.0) % Hypochromia 1+ Platelet Estimate NORMAL (NORMAL) RBC Morphology ABNORMAL Poikilocytosis 1+ Sodium 142 (137-145) mmol/L Potassium 3.7 (3.5-5.1) mmol/L Chloride 106 (98-107) mmol/L Carbon Dioxide 30 (22-30) mmol/L Anion Gap 9.8 (5-15) MEQ/L BUN 23 H (7-17) mg/dL Creatinine 1.82 H (0.52-1.04) mg/dL Estimated GFR 28.4 ML/MIN Glucose 114 H (74-106) mg/dL Calcium 9.5 (8.4-10.2) mg/dL Micro Results-Entire Visit: Microbiology 02/27/19 11:00 Urine Culture - Final Catherized NO GROWTH Accuchecks Date 03/03/19 Date 03/02/19 Date 03/02/19 Time 07:34 Time 16:30 Time 11:30 Accucheck Value: 114 Accucheck Value: 181 Accucheck Value: 196 Accucheck Value: 156 - Radiology Exams Ordered Rad Exams-Entire Visit: Radiology Procedures Category Date Time Status CHEST 1 VIEW (PORTABLE) Urgent Exams 03/01/19 09:03 Completed ECHO W/2D AND DOPPLER [US] Routine Exams 03/01/19 10:37 Draft - Procedures and Test Procedures and Tests throughout Hospitalization: Therapy Orders & Screens 02/27/19 13:43 Respiratory Therapy Assessment DAILY Comment: 02/27/19 14:26 Oxygen Nasal Cannula 2 lpm Comment: 02/27/19 15:40 Peak Expiratory Flow Rate ONCE Comment: Reason For Exam: Diagnosis: Diverticulitis 02/27/19 21:00 BiPap/CPAP ROUTINE Comment: HOME BIPAP PER HOME SETTINGS Diagnosis: Diverticulitis Discharge Exam General Appearance: no apparent distress, alert Neurologic Exam: alert, oriented x 3, cooperative, normal mood/affect, nml cerebellar function, sensation nml, No motor deficits Eye Exam: PERRL, EOMI, eyes nml inspection Respiratory Exam: normal breath sounds, lungs clear, No respiratory distress Cardiovascular Exam: regular rate/rhythm, normal heart sounds Gastrointestinal/Abdomen Exam: soft, No tenderness, No mass Extremity Exam: normal inspection, normal range of motion Skin Exam: normal color, warm, dry Final Diagnosis/Problem List - Final Discharge Diagnosis/Problem (1) Diverticulitis Current Visit: Yes Status: Acute Assessment & Plan: home on po levaquin/flagyl Code(s): K57.92 - DVTRCLI OF INTEST, PART UNSP, W/O PERF OR ABSCESS W/O BLEED (2) CHF (congestive heart failure) Current Visit: Yes Status: Acute Assessment & Plan: euvolemic on exam, echo pending. sees Dr Corea Code(s): I50.9 - HEART FAILURE, UNSPECIFIED (3) Atrial fibrillation Current Visit: No Status: Chronic Code(s): I48.91 - UNSPECIFIED ATRIAL FIBRILLATION - Discharge Disposition: Home, Self-Care Condition: Stable Prescriptions: New Metronidazole 500 mg [Flagyl 500 MG] 500 mg PO TID #15 tablet Levofloxacin [Levaquin] 250 mg PO DAILY #5 tablet Continue Insulin Detemir [Levemir] 30 unit SQ BID Insulin Aspart [NovoLOG Insulin] 10 units SQ TIDWM Apixaban [Eliquis 5 mg Tablet] 2.5 mg PO BID Bumetanide 1 mg [Bumex 1 mg] 1 mg PO DAILY Memantine HCl 5 mg PO DAILY PANTOPRAZOLE 40 mg Tablet [Protonix 40MG Tablet] 40 mg PO DAILY Losartan Potassium [Cozaar] 100 mg PO DAILY Folic Acid 1 mg [Folate 1 mg] 1 mg PO DAILY Escitalopram Oxalate 10 mg [Lexapro 10 MG] 10 mg PO DAILY Donepezil HCl [Aricept] 5 mg PO DAILY Aspirin 81 gm Chew [Baby Aspirin 81 mg Chew] 81 mg PO DAILY Amlodipine Besylate 5 mg [Norvasc 5 mg] 5 mg PO DAILY Atorvastatin Calcium 40 mg PO HS Nitroglycerin 0.4 mg Tablet [Nitrostat 0.4 MG Tablet] 1 tablet SL UD PRN PRN Reason: Chest Pain Cholecalciferol (Vitamin D3) [Vitamin D] 1,000 unit PO DAILY Guaifenesin/Pseudoephedrne HCl [Sm Mucus Relief D ER 600-60 mg] 1 each PO Q12H Potassium Chloride 7.5 ml PO BID Olanzapine 10 mg PO HS Clonazepam 0.5 mg [Klonopin 0.5 MG] 0.5 mg PO TIDPRN PRN PRN Reason: Anxiety Discontinued Cefuroxime Axetil 500 mg [Ceftin 500 mg] 500 mg PO BID Follow up with: JANNETTE YADAV MD [Primary Care Provider] - 1 Week
[2019-03-03] MEDS: Cozaar 50 MG PO SCH (09:37)
[2019-03-03] MEDS: Protonix 40MG Tablet PO SCH (09:38)
[2019-03-03] MEDS: Lexapro 10 MG PO SCH (09:38)
[2019-03-03] MEDS: Aricept 10 MG PO SCH (09:38)
[2019-03-03] MEDS: Namenda 5 MG PO SCH (09:38)
[2019-03-03] MEDS: ELIQUIS 2.5 MG TABLET PO SCH (09:38)
[2019-03-03] MEDS: ECOTRIN 81 MG PO SCH (09:38)
[2019-03-03] MEDS: NORVASC 5 MG PO SCH (09:38)
[2019-03-03] MEDS: Lantus Insulin SQ SCH (09:39)
[2019-03-03] MEDS: Lasix 20 MG/2 ML IV SCH (09:39)
[2019-03-03] MEDS: NovoLOG Insulin SQ PRN (11:57)
[2019-03-03 13:12] VITALS: BP 140/68; PULSE 62; O2SAT 98
== END 2019-03-03 14:25 | disposition home or self-care (01) | DRG 392 ==
LOC: ED 10:28 → MED SURG 14:56 → OBSVTOIN 02-28 15:00
PROVIDERS: ADMIT Family Medicine; ATTEND Family Medicine
DX: K57.32 Diverticulitis of large intestine without perforation or abscess without bleeding (principal); F02.81 Dementia in other diseases classified elsewhere, unspecified severity, with behavioral disturbance; E11.9 Type 2 diabetes mellitus without complications; J44.9 Chronic obstructive pulmonary disease, unspecified; I10 Essential (primary) hypertension; Z90.5 Acquired absence of kidney; Z79.01 Long term (current) use of anticoagulants; Z79.899 Other long term (current) drug therapy; I50.9 Heart failure, unspecified; I48.91 Unspecified atrial fibrillation; Z86.73 Personal history of transient ischemic attack (TIA), and cerebral infarction without residual deficits; Z95.0 Presence of cardiac pacemaker; G30.9 Alzheimer's disease, unspecified; I51.7 Cardiomegaly
CPT/HCPCS: 36000; 36415; 51702; 71045; 74176; 80047; 80048; 80053; 80307; 81001; 82962; 83036; 83605; 83690; 85025; 87086; 93306; 94640; 94760; 96360; 96365; 96374; 96375; 99285; J1940; J1956; J2270; J2405; J3010; A9270-GY

== ENCOUNTER 2019-04-19 11:22 | Emergency (ER) | payer MEDICARE, OTHER ==
--- NOTE | 2019-04-19 11:24 | ERPHSYRPT ---
- History of Present Illness Time Seen by Provider: 04/19/19 11:23 Source: patient, family, EMS Exam Limitations: no limitations Physician History: 79 y/o white female presents with facial, head and neck injury after fallling out of wheelchair. pt on eliquis. no loc. Occurred: just prior to arrival Reason for Fall: fell from height (wheelchair) Injuries/Pain Location: head, face, neck Loss of Consciousness: no loss of consciousness Quality: aching Severity of Pain-Max: mild Severity of Pain-Current: mild Associated Symptoms (Fall): denies symptoms Allergies/Adverse Reactions: carvedilol Allergy (Verified 04/19/19 11:43) Home Medications: Amlodipine Besylate 5 mg [Norvasc 5 mg] 5 mg PO DAILY 02/08/18 [History] Apixaban [Eliquis 5 mg Tablet] 2.5 mg PO BID 02/08/18 [History] Aspirin 81 gm Chew [Baby Aspirin 81 mg Chew] 81 mg PO DAILY 02/08/18 [ History] Atorvastatin Calcium 40 mg PO HS 02/08/18 [History] Bumetanide 1 mg [Bumex 1 mg] 1 mg PO DAILY 02/08/18 [History] Donepezil HCl [Aricept] 5 mg PO DAILY 02/08/18 [History] Escitalopram Oxalate 10 mg [Lexapro 10 MG] 10 mg PO DAILY 02/08/18 [History] Folic Acid 1 mg [Folate 1 mg] 1 mg PO DAILY 02/08/18 [History] Insulin Aspart [NovoLOG Insulin] 10 units SQ TIDWM 02/08/18 [History] Losartan Potassium [Cozaar] 100 mg PO DAILY 02/08/18 [History] Memantine HCl 5 mg PO DAILY 02/08/18 [History] Nitroglycerin 0.4 mg Tablet [Nitrostat 0.4 MG Tablet] 1 tablet SL UD PRN 02/08/18 [History] PANTOPRAZOLE 40 mg Tablet [Protonix 40MG Tablet] 40 mg PO DAILY 02/08/18 [ History] Cholecalciferol (Vitamin D3) [Vitamin D] 1,000 unit PO DAILY 02/27/19 [ History] Clonazepam 0.5 mg [Klonopin 0.5 MG] 0.5 mg PO TIDPRN PRN 02/27/19 [History ] Olanzapine 10 mg PO HS 02/27/19 [History] Insulin Glargine,Hum.rec.anlog [Lantus] 30 unit SQ BID 04/19/19 [History] Hx Tetanus, Diphtheria Vaccination/Date Given: (UNK) Hx Influenza Vaccination/Date Given: (UNK) Hx Pneumococcal Vaccination/Date Given: (UNK) - Review of Systems Constitutional: No Symptoms Eyes: No Symptoms Ears, Nose, & Throat: No Symptoms Respiratory: No Symptoms Cardiac: No Symptoms Abdominal/Gastrointestinal: No Symptoms Genitourinary Symptoms: No Symptoms Skin: Other (facial abrasions) Neurological: No Symptoms Psychological: No Symptoms Endocrine: No Symptoms Hematologic/Lymphatic: No Symptoms Immunological/Allergic: No Symptoms All Other Systems: Reviewed and Negative - Past Medical History Pertinent Past Medical History: Yes Neurological History: Alzheimer's Disease, Dementia, Peripheral Neuropathy ENT History: Cataracts Cardiac History: Hypertension Respiratory History: CHF, COPD, Sleep Apnea, Other Endocrine Medical History: Diabetes Type II Musculoskeletal History: Arthritis GI Medical History: Diverticulitis, Irritable Bowel History: No Pertinent History, Renal Disease Psycho-Social History: No Pertinent History Female Reproductive Disorders: No Pertinent History Other Medical History: pt family states pt noncompliant with cpap - Past Surgical History Past Surgical History: Yes Neuro Surgical History: No Pertinent History Cardiac: No Pertinent History, Internal Defibrillator, Pacemaker Respiratory: No Pertinent History Gastrointestinal: No Pertinent History Genitourinary: Other Musculoskeletal: No Pertinent History Female Surgical History: Tubal Ligation Other Surgical History: ear surgery, cataract surgery, bladder tuck,lasik surgery - Social History Smoking Status: Former smoker How long have you smoked: 50 years Exposure to second hand smoke: No Drug Use: none Patient Lives Alone: No - Nursing Vital Signs Nursing Vital Signs: Initial Vital Signs Temperature 98.0 F 04/19/19 11:23 Pulse Rate 62 04/19/19 11:23 Blood Pressure 180/89 04/19/19 11:23 O2 Sat by Pulse Oximetry 98 04/19/19 11:23 Pain Scale Pain Intensity 0 - Yovana Coma Score Best Eye Response ([place]): (4) open spontaneously Best Verbal Response ([place]): (5) oriented Best Motor Response (Yovana): (6) obeys commands Yovana Total: 15 - Physical Exam General Appearance: no apparent distress, alert Head Injury: no evidence of injury, tenderness Eye Exam: PERRL/EOMI, eyes nml inspection ENT Exam: airway nml, other (abrasion of forehead, nasal bridge chin) Neck Exam: supple, trachea midline, full range of motion, normal alignment, normal inspection, muscle spasm Respiratory/Chest Exam: normal breath sounds, No chest tenderness, No respiratory distress Cardiovascular Exam: normal heart sounds, regular rate/rhythm Gastrointestinal Exam: soft, normal bowel sounds, No tenderness Rectal Exam: not done Back Exam: normal inspection, normal range of motion, No CVA tenderness, No vertebral tenderness Extremity Exam: other (left hand superficial abrasion) Neurologic Exam: alert, oriented x 3, cooperative, No machine stonecutter II-XII nml as tested Skin Exam: abrasion (see abrasion) SpO2 Interpretation: normal O2 Delivery: Room Air Ordered Tests: Active Orders 24 hr Category Date Time Status CERVICAL SPINE WO CONTRAST [CT] Stat Exams 04/19/19 11:24 Completed FACIAL BONES WO CONTRAST [CT] Stat Exams 04/19/19 11:24 Completed HEAD WITHOUT CONTRAST [CT] Stat Exams 04/19/19 11:24 Completed - Progress Progress: improved, re-examined Progress Note: 04/19/19 12:16 dr. anderson called in to check on his pt. he states ok to hold eliquis for a week if needed. Discussed with : Other (monica) Counseled pt/family regarding: diagnosis, need for follow-up, rad results - Departure Departure Disposition: Home Clinical Impression: Fall, Abrasion Condition: Stable Critical Care Time: No Referrals: JANNETTE YADAV MD [Primary Care Provider] - Additional Instructions: hold eliquis until Wednesday04/24/19. keep all abrasion sites clean daily with soap and water. apply antibiotic ointment daily.
--- NOTE | 2019-04-19 12:27 | XRAY ---
Indication: Pain following fall. Forehead/nose contusion. Multiple contiguous axial images obtained through the head without contrast. Comparison: None Age-appropriate global atrophy and moderate periventricular degenerative micro-ischemia bilaterally. 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 No acute intracranial hemorrhage, hydrocephalus, or mass effect. Fourth ventricle is midline. Bony calvarium intact. Right maxillary sinus demonstrate moderate mucosal thickening. Remaining visualized paranasal sinuses and mastoid air cells are clear. Impression: 1. 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 2. Incidental right maxillary sinus disease. CTDI 50.14
--- NOTE | 2019-04-19 12:30 | XRAY ---
Indication: Pain following fall. Forehead/nose contusion. Multiple contiguous axial images obtained through the facial bones. Sagittal and coronal reformatted images obtained. Comparison: None Patient is edentulous. No acute fracture, suspicious bony lesions, or radiopaque foreign body. Orbits including roof, mckinnon, and floors intact. Floor of the maxillary sinuses demonstrates mucosal thickening, right greater than left. Nasal passages are clear with mild nasoseptal deviation to the left. Visualized noncontrasted soft tissues unremarkable. CT head and CT cervical spine reported separately. Impression: 1. Bilateral maxillary sinus disease. 2. Remaining CT facial bones negative. CTDI 59.47
--- NOTE | 2019-04-19 12:32 | XRAY ---
Indication: Pain following fall. Forehead/nose contusion. Multiple contiguous axial images obtained through the cervical spine. Sagittal and coronal reformatted images obtained. Comparison: None Axial images negative for acute fracture, suspicious bony lesions, or spinal canal stenosis. There is mild/moderate C4-C7 degenerative endplate spurring. Also mild/moderate multilevel bilateral degenerative facet hypertrophy. Sagittal and coronal reformatted images demonstrates cervical lordotic reversal, positional versus paraspinal spasm. Mild C5-C7 disc space narrowing. No acute compression fracture, subluxation, or jumped facet. Normal appearing craniocervical junction. Visualized noncontrasted soft tissues demonstrates heavy scattered carotid calcifications bilaterally and partially visualized left cardiac pacer lead. Lung apices clear. CT head and CT facial bones reported separately. Impression: 1. Cervical lordotic reversal, positional versus paraspinal spasm. 2. Negative acute fracture/subluxation. 3. Multilevel degenerative changes. CTDI 59.57
[2019-04-19 13:27] VITALS: BP 158/77; PULSE 88; O2SAT 97
== END 2019-04-19 13:24 | disposition home or self-care (01) ==
LOC: ED 11:22
DX: S00.81XA Abrasion of other part of head, initial encounter (principal); W05.0XXA Fall from non-moving wheelchair, initial encounter; Z79.01 Long term (current) use of anticoagulants; Z79.899 Other long term (current) drug therapy; G30.9 Alzheimer's disease, unspecified; F02.80 Dementia in other diseases classified elsewhere, unspecified severity, without behavioral disturbance, psychotic disturbance, mood disturbance, and anxiety; G62.9 Polyneuropathy, unspecified; I10 Essential (primary) hypertension; I50.9 Heart failure, unspecified; J44.9 Chronic obstructive pulmonary disease, unspecified; G47.30 Sleep apnea, unspecified; E11.9 Type 2 diabetes mellitus without complications; M19.90 Unspecified osteoarthritis, unspecified site; N28.9 Disorder of kidney and ureter, unspecified
CPT/HCPCS: 70450; 70486; 72125; 99284

== ENCOUNTER 2019-08-30 18:28 | Observation (INO) | payer MEDICARE, OTHER ==
--- NOTE | 2019-08-30 19:44 | ERPHSYRPT ---
- History of Present Illness Time Seen by Provider: 08/30/19 19:30 Source: patient, family Exam Limitations: clinical condition Patient Subjective Stated Complaint: Patient's caregiver states " Patient hasn' t been acting right today." Patient has lived with caregiver for past year. Caregiver states they had a water leak in home and then construction was cutting concrete in which the dust went through cold air return and home filled with dust. Caregiver states patient has been more weak and hasnt been wanting to walk. Caregiver states she just got over pneumonia 3 weeks ago. Caregiver states her blood pressure was high also last couple of days despite taking her meds, states her B/P was high prior to coming to ER. Triage Nursing Assessment: Patient arrived to ER in W/C and caregiver. Patient assisted to bed with 2 assist. Patient alert and orientated. Patient answers questions appropriatley. Lungs diminished with scattered wheezes throughout A/ P. Patient on 02 per N/C at 3L. Oral mucosa dry, pink. Lips dry. Cap refill < 3 seconds. Skin turgor < 3 seconds. + BS times 4 quads. ABD soft, round, obese, non-distended. Non-pitting edema noted to lower bilateral extremities. Caregiver states patient is incontinent of B/B. B/P on arrival 139/79. No respiratory distress noted. Patient denies pain or discomfort. Physician History: This is a 79-year-old female with a history of hypertension, dementia, CHF, oxygen dependent COPD, diabetes, kidney disease, obesity, presents with multiple complaints. Including in these complaints are weakness, shortness of breath, coughing. She also was found to have a fever yesterday and today. Patient denies chest pain. Patient denies abdominal pain. Patient has had no nausea vomiting or diarrhea. Patient has not been eating or drinking well the last few days. There was some construction issues at the patient's home. The patient lives with her primary caregiver. These construction issues caused some change in the air temperature and air movement as well as dust precipitating some of the patient's coughing and shortness of breath symptoms. In addition, the patient's primary caregiver states that she has had some blood pressure issues (elevation) this week. However, tonight, in the emergency room , her blood pressure is normal. Patient's primary caregiver also states that she is noticed the patient's urine being dark and concentrated Timing/Duration: yesterday Severity: mild Associated Symptoms: shortness of breath, cough, fever Allergies/Adverse Reactions: carvedilol Allergy (Verified 08/30/19 19:11) Home Medications: Amlodipine Besylate 5 mg [Norvasc 5 mg] 5 mg PO DAILY 02/08/18 [History] Apixaban [Eliquis 5 mg Tablet] 2.5 mg PO BID 02/08/18 [History] Aspirin 81 gm Chew [Baby Aspirin 81 mg Chew] 81 mg PO DAILY 02/08/18 [ History] Atorvastatin Calcium 40 mg PO HS 02/08/18 [History] Bumetanide 1 mg [Bumex 1 mg] 1 mg PO DAILY 02/08/18 [History] Donepezil HCl [Aricept] 5 mg PO DAILY 02/08/18 [History] Escitalopram Oxalate 10 mg [Lexapro 10 MG] 10 mg PO DAILY 02/08/18 [History] Folic Acid 1 mg [Folate 1 mg] 1 mg PO DAILY 02/08/18 [History] Insulin Aspart [NovoLOG Insulin] 10 units SQ TIDWM 02/08/18 [History] Losartan Potassium [Cozaar] 100 mg PO DAILY 02/08/18 [History] Memantine HCl 5 mg PO DAILY 02/08/18 [History] Nitroglycerin 0.4 mg Tablet [Nitrostat 0.4 MG Tablet] 1 tablet SL UD PRN 02/08/18 [History] PANTOPRAZOLE 40 mg Tablet [Protonix 40MG Tablet] 40 mg PO DAILY 02/08/18 [ History] Cholecalciferol (Vitamin D3) [Vitamin D] 1,000 unit PO DAILY 02/27/19 [ History] Clonazepam 0.5 mg [Klonopin 0.5 MG] 0.5 mg PO TIDPRN PRN 02/27/19 [History ] Olanzapine 10 mg PO HS 02/27/19 [History] Insulin Glargine,Hum.rec.anlog [Lantus] 30 unit SQ BID 04/19/19 [History] Hx Tetanus, Diphtheria Vaccination/Date Given: Yes Hx Influenza Vaccination/Date Given: Yes Hx Pneumococcal Vaccination/Date Given: Yes Immunizations Up to Date: Yes - Review of Systems Constitutional: Fever, Weakness Eyes: No Symptoms Ears, Nose, & Throat: No Symptoms Respiratory: Cough, Dyspnea (Mild) Cardiac: No Symptoms Abdominal/Gastrointestinal: Appetite Changes Genitourinary Symptoms: No Symptoms Musculoskeletal: No Symptoms Skin: No Symptoms Neurological: No Symptoms Psychological: No Symptoms Endocrine: No Symptoms Hematologic/Lymphatic: No Symptoms Immunological/Allergic: No Symptoms All Other Systems: Reviewed and Negative - Past Medical History Pertinent Past Medical History: Yes Neurological History: Alzheimer's Disease, Dementia, Peripheral Neuropathy, Stroke ENT History: Cataracts Cardiac History: Hypertension Respiratory History: CHF, COPD, Sleep Apnea, Other Endocrine Medical History: Diabetes Type II Musculoskeletal History: Arthritis GI Medical History: Diverticulitis, Irritable Bowel History: No Pertinent History, Renal Disease Psycho-Social History: No Pertinent History Female Reproductive Disorders: No Pertinent History Other Medical History: pt family states pt noncompliant with cpap - Past Surgical History Past Surgical History: Yes Neuro Surgical History: No Pertinent History Cardiac: No Pertinent History, Internal Defibrillator, Pacemaker Respiratory: No Pertinent History Gastrointestinal: No Pertinent History Genitourinary: Other Musculoskeletal: No Pertinent History Female Surgical History: Tubal Ligation Other Surgical History: ear surgery, cataract surgery, bladder tuck,lasik surgery. Kidney removed - Social History Smoking Status: Former smoker How long have you smoked: 50 years Exposure to second hand smoke: No Drug Use: none Patient Lives Alone: No - Female History Hx Last Menstrual Period: POST Hx Now: No - Nursing Vital Signs Nursing Vital Signs: Initial Vital Signs Temperature 100.0 F 08/30/19 19:11 Pulse Rate 65 08/30/19 19:11 Respiratory Rate 20 08/30/19 19:11 Blood Pressure 139/79 08/30/19 19:11 O2 Sat by Pulse Oximetry 97 08/30/19 19:11 Pain Scale Pain Intensity 0 - Physical Exam General Appearance: no apparent distress, alert, anxiety, obese Eye Exam: PERRL/EOMI, eyes nml inspection Ears, Nose, Throat Exam: normal ENT inspection, dry mucous membranes Neck Exam: normal inspection, non-tender, supple, full range of motion Respiratory Exam: normal breath sounds, lungs clear, airway intact, No chest tenderness, No respiratory distress Cardiovascular Exam: regular rate/rhythm, normal heart sounds, normal peripheral pulses Gastrointestinal/Abdomen Exam: soft, normal bowel sounds, No tenderness, No guarding Pelvic Exam: not done Rectal Exam: not done Back Exam: normal inspection, normal range of motion, No CVA tenderness, No vertebral tenderness Extremity Exam: normal inspection, normal range of motion, pelvis stable Neurologic Exam: alert, oriented x 3, cooperative, executive personal assistant II-XII nml as tested Skin Exam: normal color, warm, dry Lymphatic Exam: No adenopathy SpO2 Interpretation: normal SpO2: 97 O2 Delivery: Room Air - Course Nursing assessment & vital signs reviewed: Yes Ordered Tests: Active Orders 24 hr Category Date Time Status Termite Control Technician STAT Care 08/30/19 19:49 Active IV Insertion STAT Care 08/30/19 19:48 Active Pulse Oximetry (ED) STAT Care 08/30/19 19:48 Active CHEST 1 VIEW (PORTABLE) Stat Exams 08/30/19 19:48 Taken BLOOD CULTURE Stat Lab 08/30/19 20:35 Received CBC W DIFF Stat Lab 08/30/19 20:35 Completed CMP Stat Lab 08/30/19 20:35 Completed CULTURE,URINE Stat Lab 08/30/19 21:00 Received Lactic Acid Stat Lab 08/30/19 20:35 Completed [place] Screen Stat Lab 08/30/19 20:35 Completed NT PRO BNP Stat Lab 08/30/19 20:35 Completed UA W/RFX UR CULTURE Stat Lab 08/30/19 21:00 Completed Respiratory Therapy Assessment DAILY RT 08/30/19 20:04 Completed Transfer Order Routine Transfer 08/30/19 Ordered Medication Summary Discontinued Medications Generic Name Dose Route Start Last Admin Trade Name Michelle PRN Reason Stop Dose Admin Albuterol Sulfate 2.5 mg 08/30/19 19:48 08/30/19 20:04 Proventil 2.5 Mg/3 Ml Neb IH 08/30/19 19:49 2.5 mg STAT ONE Administration Albuterol Sulfate Confirm 08/30/19 20:01 Proventil 2.5 Mg/3 Ml Neb Administered 08/30/19 20:02 Dose 2.5 mg IH .STK-MED ONE Sodium Chloride 1,000 mls @ 999 mls/hr 08/30/19 19:48 08/30/19 20:07 Sodium Chloride 0.9% 1000 Ml IV 08/30/19 20:48 999 mls/hr .Q1H1M STA Administration Sodium Chloride Confirm 08/30/19 20:03 Sodium Chloride 0.9% 1000 Ml Administered 08/30/19 20:04 Dose 1,000 mls @ ud .ROUTE .STK-MED ONE Ceftriaxone Sodium/Dextrose 1 g in 50 mls @ 100 mls/hr 08/30/19 21:50 21:58 Rocephin 1 Gm-D5w 50 Ml Bag IV 08/30/19 22:19 100 mls/hr STAT STA 100 mls/hr Administration Ceftriaxone Sodium/Dextrose Confirm 08/30/19 21:55 Rocephin 1 Gm-D5w 50 Ml Bag Administered 08/30/19 21:56 Dose 1 g in 50 mls @ ud IV .STK-MED ONE Lab/Rad Data: Laboratory Result Diagrams 08/30/19 20:35 08/30/19 20:35 Laboratory Results 08/30/19 08/30/19 08/30/19 Range/Units 21:00 20:35 20:35 WBC (4.0-10.5) K/mm3 RBC (4.1-5.4) M/mm3 Hgb (12.0-16.0) gm/dl Hct (35-47) % MCV (78-100) fl MCH (26-32) pg MCHC (32-36) g/dl RDW (11.5-14.0) % Plt Count (150-450) K/mm3 MPV (7.5-11.0) fl Gran % (36.0-66.0) % Eos # (Auto) (0-0.5) Absolute Lymphs (auto) (1.0-4.6) Absolute Monos (auto) (0.0-1.3) Lymphocytes % (24.0-44.0) % Monocytes % (0.0-12.0) % Eosinophils % (0.00-5.0) % Basophils % (0.0-0.4) % Absolute Granulocytes (1.4-6.9) Basophils # (0-0.4) Sodium 142 (137-145) mmol/L Potassium 3.3 L (3.5-5.1) mmol/L Chloride 104 (98-107) mmol/L Carbon Dioxide 27 (22-30) mmol/L Anion Gap 13.8 (5-15) MEQ/L BUN 32 H (7-17) mg/dL Creatinine 2.18 H (0.52-1.04) mg/dL Estimated GFR 23.1 ML/MIN Glucose 87 (74-106) mg/dL Lactic Acid (0.4-2.0) Calcium 9.1 (8.4-10.2) mg/dL Total Bilirubin 2.60 H (0.2-1.3) mg/dL AST 681 H (14-36) U/L ALT 674 H (0-35) U/L Alkaline Phosphatase 302 H (38-126) U/L NT-Pro-B Natriuret Pep 1750 (0-1800) pg/mL Serum Total Protein 7.8 (6.3-8.2) g/dL Albumin 4.0 (3.5-5.0) g/dL Urine Color YELLOW (YELLOW) Urine Appearance CLEAR (CLEAR) Urine pH 5.0 (5-6) Ur Specific [place] 1.004 (1.005-1.025) Urine Protein NEGATIVE (Negative) Urine Ketones NEGATIVE (NEGATIVE) Urine Blood MODERATE (0-5) Wilbert/ul Urine Nitrite NEGATIVE (NEGATIVE) Urine Bilirubin NEGATIVE (NEGATIVE) Urine Urobilinogen NEGATIVE (0-1) mg/dL Ur Leukocyte Esterase NEGATIVE (NEGATIVE) Urine WBC (Auto) NONE (0-5) /HPF Urine RBC (Auto) 3-5 (0-2) /HPF U Epithel Cells (Auto) NONE (FEW) /HPF Urine Bacteria (Auto) NONE (NEGATIVE) /HPF Urine Mucus (Auto) SLIGHT (NEGATIVE) /HPF Urine Culture Reflexed NO (NO) Urine Glucose NEGATIVE (NEGATIVE) mg/dL Monoscreen NEGATIVE (Negative) 08/30/19 08/30/19 Range/Units 20:35 20:35 WBC 8.4 (4.0-10.5) K/mm3 RBC 3.98 L (4.1-5.4) M/mm3 Hgb 10.7 L (12.0-16.0) gm/dl Hct 35.3 (35-47) % MCV 88.7 (78-100) fl MCH 26.9 (26-32) pg MCHC 30.3 L (32-36) g/dl RDW 15.4 H (11.5-14.0) % Plt Count 208 (150-450) K/mm3 MPV 10.4 (7.5-11.0) fl Gran % 77.1 H (36.0-66.0) % Eos # (Auto) 0.04 (0-0.5) Absolute Lymphs (auto) 0.86 L (1.0-4.6) Absolute Monos (auto) 1.00 (0.0-1.3) Lymphocytes % 10.3 L (24.0-44.0) % Monocytes % 11.9 (0.0-12.0) % Eosinophils % 0.5 (0.00-5.0) % Basophils % 0.2 (0.0-0.4) % Absolute Granulocytes 6.45 (1.4-6.9) Basophils # 0.02 (0-0.4) Sodium (137-145) mmol/L Potassium (3.5-5.1) mmol/L Chloride (98-107) mmol/L Carbon Dioxide (22-30) mmol/L Anion Gap (5-15) MEQ/L BUN (7-17) mg/dL Creatinine (0.52-1.04) mg/dL Estimated GFR ML/MIN Glucose (74-106) mg/dL Lactic Acid 1.0 (0.4-2.0) Calcium (8.4-10.2) mg/dL Total Bilirubin (0.2-1.3) mg/dL AST (14-36) U/L ALT (0-35) U/L Alkaline Phosphatase (38-126) U/L NT-Pro-B Natriuret Pep (0-1800) pg/mL Serum Total Protein (6.3-8.2) g/dL Albumin (3.5-5.0) g/dL Urine Color (YELLOW) Urine Appearance (CLEAR) Urine pH (5-6) Ur Specific [place] (1.005-1.025) Urine Protein (Negative) Urine Ketones (NEGATIVE) Urine Blood (0-5) Wilbert/ul Urine Nitrite (NEGATIVE) Urine Bilirubin (NEGATIVE) Urine Urobilinogen (0-1) mg/dL Ur Leukocyte Esterase (NEGATIVE) Urine WBC (Auto) (0-5) /HPF Urine RBC (Auto) (0-2) /HPF U Epithel Cells (Auto) (FEW) /HPF Urine Bacteria (Auto) (NEGATIVE) /HPF Urine Mucus (Auto) (NEGATIVE) /HPF Urine Culture Reflexed (NO) Urine Glucose (NEGATIVE) mg/dL Monoscreen (Negative) - Progress Progress: improved Progress Note: 08/30/19 21:55 Chest x-ray shows bibasilar infiltrates versus atelectasis. 08/30/19 21:55 I did speak with Dr[address] Yadav, her primary care physician. Reviewed the patient history, condition, laboratory data, x-ray findings and patient's response to treatment. We will place the patient in observation and provide the patient with some IV hydration, intravenous antibiotics and repeat laboratory data. Discussed with : Olivia Counseled pt/family regarding: lab results, diagnosis, need for follow-up, rad results - Departure Departure Disposition: Observation Clinical Impression: Pulmonary infiltrate on chest x-ray, Fever, Weakness, Elevated liver enzymes Condition: Fair Critical Care Time: No Referrals: JANNETTE YADAV MD [Primary Care Provider] -
[2019-08-30] MEDS ORDERED: Sodium Chloride 0.9% 1000 ML 1,000 ML IV STA (19:48)
[2019-08-30] MEDS ORDERED: PROVENTIL 2.5 MG/3 ML NEB IH ONE ×2 (19:48→20:01)
[2019-08-30] MEDS ORDERED: Sodium Chloride 0.9% 1000 ML 1,000 ML ONE (20:03)
[2019-08-30 20:37] LABS: Absolute Neutrophil Ct (ANC) 6.45 (1.4-6.9); BASOPHIL % 0.2 % (0.0-0.4); Basophil (Absolute #) 0.02 (0-0.4); Eosinophil % 0.5 % (0.00-5.0); Eosinophil (Absolute #) 0.04 (0-0.5); Hematocrit 35.3 % (35-47); Hemoglobin 10.7 gm/dl (12.0-16.0); Lymphocyte (Absolute #) 0.86 (1.0-4.6); Lymphocytes % 10.3 % (24.0-44.0); Mean Cell Volume 88.7 fl (78-100); Mean Corpuscular Hemoglobin 26.9 pg (26-32); Mean Corpuscular Hgb Concent. 30.3 g/dl (32-36); Mean Platelet Volume 10.4 fl (7.5-11.0); Monocytes % 11.9 % (0.0-12.0); Neutrophil % 77.1 % (36.0-66.0); Platelet Count 208 K/mm3 (150-450); Red Blood Count 3.98 M/mm3 (4.1-5.4); Red Cell Distribution Width 15.4 % (11.5-14.0); White Blood Count 8.4 K/mm3 (4.0-10.5)
[2019-08-30 20:56] LABS: ANION GAP 13.8 MEQ/L (5-15); BILIRUBIN,TOTAL 2.6 mg/dL (0.2-1.3); Calcium 9.1 mg/dL (8.4-10.2); Creatinine 1 2.18 mg/dL (0.52-1.04); Potassium 3.3 mmol/L (3.5-5.1); Total Protein 7.8 g/dL (6.3-8.2)
[2019-08-30 21:38] LABS: Appearance CLEAR (CLEAR); Bilirubin NEGATIVE (NEGATIVE); Blood MODERATE Ery/ul (0-5); Glucose NEGATIVE (NEGATIVE); Ketones NEGATIVE (NEGATIVE); Leukocyte Esterase NEGATIVE (NEGATIVE); Mucus SLIGHT /HPF (NEGATIVE); Nitrite NEGATIVE (NEGATIVE); Protein,Urine Dip NEGATIVE (Negative); Specific Gravity 1.004 (1.005-1.025); Urobilinogen NEGATIVE mg/dL (0-1)
[2019-08-30] MEDS ORDERED: ROCEPHIN 1 Gm-D5w 50 ml Bag** 1 G/50 ML IVPB IV STA (21:50)
[2019-08-30] MEDS ORDERED: ROCEPHIN 1 Gm-D5w 50 ml Bag** 1 G/50 ML IVPB IV ONE (21:55)
[2019-08-30] MEDS ORDERED: Zofran 4 MG/2 ML VIAL IV PRN (23:55)
[2019-08-30] MEDS ORDERED: TYLENOL 325 MG PO PRN (23:55)
[2019-08-30] MEDS ORDERED: Sodium Chloride 0.9% 1000 ML 1,000 ML IV SCH (23:55)
[2019-08-31] MEDS: zyPREXA 5MG TABLET PO SCH ×2 (00:38→21:14)
[2019-08-31] MEDS: Namenda 5 MG PO SCH ×2 (00:39→21:14)
[2019-08-31] MEDS: ELIQUIS 2.5 MG TABLET PO SCH ×3 (00:39→21:14)
[2019-08-31 04:35] LABS: Absolute Neutrophil Ct (ANC) 5.13 (1.4-6.9); BASOPHIL % 0.4 % (0.0-0.4); Basophil (Absolute #) 0.03 (0-0.4); Eosinophil (Absolute #) 0.07 (0-0.5); Hematocrit 33.6 % (35-47); Hemoglobin 10.2 gm/dl (12.0-16.0); Lymphocyte (Absolute #) 0.68 (1.0-4.6); Lymphocytes % 9.8 % (24.0-44.0); Mean Cell Volume 88.9 fl (78-100); Mean Corpuscular Hgb Concent. 30.4 g/dl (32-36); Mean Platelet Volume 10.5 fl (7.5-11.0); Monocyte (Absolute #) 1.02 (0.0-1.3); Monocytes % 14.7 % (0.0-12.0); Neutrophil % 74.1 % (36.0-66.0); Platelet Count 183 K/mm3 (150-450); Red Blood Count 3.78 M/mm3 (4.1-5.4); Red Cell Distribution Width 15.6 % (11.5-14.0); White Blood Count 6.9 K/mm3 (4.0-10.5)
[2019-08-31 04:45] LABS: ALBUMIN 3.8 g/dL (3.5-5.0); ANION GAP 12.3 MEQ/L (5-15); BILIRUBIN,TOTAL 2.4 mg/dL (0.2-1.3); Calcium 8.4 mg/dL (8.4-10.2); Creatinine 1 1.96 mg/dL (0.52-1.04); Potassium 3.1 mmol/L (3.5-5.1); Total Protein 7.4 g/dL (6.3-8.2)
[2019-08-31] MEDS ORDERED: K-LYTE 25 MEQ PO ONE (06:07)
[2019-08-31] MEDS ORDERED: DUONEB 0.5-3 MG/3 ml Neb IH ONE (06:43)
[2019-08-31] MEDS: PROVENTIL 2.5 MG/3 ML NEB IH SCH ×4 (07:05→19:49)
--- NOTE | 2019-08-31 08:43 | PCM.HP ---
History of Present Illness - Chief Complaint Chief Complaint: fever, weakness, elevated liver enzymes History of Present Illness: is a 79 year old female who was brought to the ER with complaints of feeling weak, overall feeling poorly yesterday and having difficulty ambulating. daughter reports house is being remodeled so there is a lot of dust , has some cough and runny nose. daughter also noted urine appeared concentrated - Review of Systems Constitutional: Weakness Ears, Nose, & Throat: Nose Congestion Respiratory: Cough Cardiac: No Chest Pain, No Edema, No Syncope Abdominal/Gastrointestinal: No Abdominal Pain, No Nausea, No Vomiting, No Diarrhea Genitourinary Symptoms: No Dysuria All Other Systems: Reviewed and Negative Medications & Allergies Home Medications: Home Medication List Amlodipine Besylate 5 mg [Norvasc 5 mg] 5 mg PO DAILY 02/08/18 [History Confirmed 08/31/19] Apixaban [Eliquis 5 mg Tablet] 2.5 mg PO BID 02/08/18 [History Confirmed 08/31/19] Atorvastatin Calcium 40 mg PO HS 02/08/18 [History Confirmed 08/31/19] Bumetanide 1 mg [Bumex 1 mg] 1 mg PO DAILY 02/08/18 [History Confirmed ] Donepezil HCl [Aricept] 5 mg PO DAILY 02/08/18 [History Confirmed 08/31/19] Folic Acid 1 mg [Folate 1 mg] 1 mg PO DAILY 02/08/18 [History Confirmed ] Losartan Potassium [Cozaar] 100 mg PO DAILY 02/08/18 [History Confirmed 08/31/19 ] Memantine HCl 5 mg PO QHS 02/08/18 [History Confirmed 08/31/19] Nitroglycerin 0.4 mg Tablet [Nitrostat 0.4 MG Tablet] 1 tablet SL UD PRN 02/08/18 [History Confirmed 08/31/19] PANTOPRAZOLE 40 mg Tablet [Protonix 40MG Tablet] 40 mg PO DAILY 02/08/18 [ History Confirmed 08/31/19] Olanzapine 10 mg PO HS 02/27/19 [History Confirmed 08/31/19] Insulin Glargine,Hum.rec.anlog [Lantus] 32 unit SQ BID 04/19/19 [History Confirmed 08/31/19] Aspirin 81 gm Chew [Baby Aspirin 81 mg Chew] 81 mg PO DAILY 08/30/19 [ History Confirmed 08/31/19] Escitalopram Oxalate 10 mg [Lexapro 10 MG] 10 mg PO DAILY 08/30/19 [History Confirmed 08/31/19] Cholecalciferol (Vitamin D3) [Vitamin D3] 10,000 unit PO WEEKLY 08/31/19 [ History Confirmed 08/31/19] Insulin Lispro [Humalog] 10 unit SQ TIDWM 08/31/19 [History Confirmed 08/31/19] Allergies/Adverse Reactions: Allergies Allergy/AdvReac Type Severity Reaction Status Date / Time carvedilol Allergy Verified 08/30/19 19:11 - Past Medical History Past Medical History: Yes Neurological History: Alzheimer's Disease, Dementia, Peripheral Neuropathy, Stroke ENT History: Cataracts Cardiac History: Hypertension Respiratory History: CHF, COPD, Sleep Apnea, Other Endocrine Medical History: Diabetes Type II Musculoskelatal History: Arthritis GI Medical History: Diverticulitis, Irritable Bowel History: No Pertinent History, Renal Disease Pyscho-Social History: No Pertinent History Reproductive Disorders: No Pertinent History, Other Comment: pt family states pt noncompliant with cpap, ovarian cysts - Female History Hx Last Menstrual Period: POST Are you now?: No - Past Surgical History Past Surgical History: Yes Neuro Surgical History: No Pertinent History Cardiac History: No Pertinent History, Internal Defibrillator, Pacemaker Respiratory Surgery: No Pertinent History GI Surgical History: No Pertinent History Genitourinary Surgical Hx: Other Musculskeletal Surgical Hx: No Pertinent History Female Surgical History: Tubal Ligation Other Surgical History: ear surgery, cataract surgery, bladder tuck,lasik surgery. Kidney removed - Social History Smoking Status: Former smoker How long have you smoked: 50 Exposure to second hand smoke: No Alcohol: None Drug Use: none - Physical Exam Vital Signs: Vital Signs - 24 hr Temp Pulse Resp BP Pulse Ox 08/31/19 07:41 97.9 F 72 20 134/71 92 L 08/31/19 07:09 68 20 94 L 08/31/19 04:00 98.7 F 67 20 115/64 95 08/31/19 00:46 98.7 F 72 24 179/84 95 08/31/19 00:15 70 22 95 08/31/19 00:01 98.0 F 92 H 22 175/86 98 08/31/19 00:00 95 08/30/19 23:08 97 08/30/19 23:00 69 24 175/86 08/30/19 22:00 73 22 95 08/30/19 21:01 72 20 172/86 96 08/30/19 20:18 60 18 140/82 97 08/30/19 20:17 97 08/30/19 20:12 62 18 96 08/30/19 19:11 100.0 F 65 20 139/79 97 Oxygen-Last 24 hours Oxygen Flowrate (L/min)-RT 3 Oxygen Flowrate (L/min)-RT 3 General Appearance: no apparent distress Neurologic Exam: alert Respiratory Exam: normal breath sounds, lungs clear, No respiratory distress Cardiovascular Exam: regular rate/rhythm, normal heart sounds, normal peripheral pulses Gastrointestinal/Abdomen Exam: soft, normal bowel sounds, No tenderness, No mass Skin Exam: normal color, warm, dry, No rash Results - Labs Lab/Micro Results: Accuchecks Accucheck Value: 134 Lab Results-Last 24 Hours 08/30/19 08/30/19 08/30/19 Range/Units 20:35 20:35 20:35 WBC 8.4 (4.0-10.5) K/mm3 RBC 3.98 L (4.1-5.4) M/mm3 Hgb 10.7 L (12.0-16.0) gm/dl Hct 35.3 (35-47) % MCV 88.7 (78-100) fl MCH 26.9 (26-32) pg MCHC 30.3 L (32-36) g/dl RDW 15.4 H (11.5-14.0) % Plt Count 208 (150-450) K/mm3 MPV 10.4 (7.5-11.0) fl Gran % 77.1 H (36.0-66.0) % Eos # (Auto) 0.04 (0-0.5) Absolute Lymphs (auto) 0.86 L (1.0-4.6) Absolute Monos (auto) 1.00 (0.0-1.3) Lymphocytes % 10.3 L (24.0-44.0) % Monocytes % 11.9 (0.0-12.0) % Eosinophils % 0.5 (0.00-5.0) % Basophils % 0.2 (0.0-0.4) % Absolute Granulocytes 6.45 (1.4-6.9) Basophils # 0.02 (0-0.4) Sodium 142 (137-145) mmol/L Potassium 3.3 L (3.5-5.1) mmol/L Chloride 104 (98-107) mmol/L Carbon Dioxide 27 (22-30) mmol/L Anion Gap 13.8 (5-15) MEQ/L BUN 32 H (7-17) mg/dL Creatinine 2.18 H (0.52-1.04) mg/dL Estimated GFR 23.1 ML/MIN Glucose 87 (74-106) mg/dL Lactic Acid 1.0 (0.4-2.0) Calcium 9.1 (8.4-10.2) mg/dL Total Bilirubin 2.60 H (0.2-1.3) mg/dL AST 681 H (14-36) U/L ALT 674 H (0-35) U/L Alkaline Phosphatase 302 H (38-126) U/L NT-Pro-B Natriuret Pep 1750 (0-1800) pg/mL Serum Total Protein 7.8 (6.3-8.2) g/dL Albumin 4.0 (3.5-5.0) g/dL Urine Color (YELLOW) Urine Appearance (CLEAR) Urine pH (5-6) Ur Specific [place] (1.005-1.025) Urine Protein (Negative) Urine Ketones (NEGATIVE) Urine Blood (0-5) Wilbert/ul Urine Nitrite (NEGATIVE) Urine Bilirubin (NEGATIVE) Urine Urobilinogen (0-1) mg/dL Ur Leukocyte Esterase (NEGATIVE) Urine WBC (Auto) (0-5) /HPF Urine RBC (Auto) (0-2) /HPF U Epithel Cells (Auto) (FEW) /HPF Urine Bacteria (Auto) (NEGATIVE) /HPF Urine Mucus (Auto) (NEGATIVE) /HPF Urine Culture Reflexed (NO) Urine Glucose (NEGATIVE) mg/dL Monoscreen (Negative) 08/30/19 08/30/19 08/31/19 Range/Units 20:35 21:00 04:16 WBC 6.9 (4.0-10.5) K/mm3 RBC 3.78 L (4.1-5.4) M/mm3 Hgb 10.2 L (12.0-16.0) gm/dl Hct 33.6 L (35-47) % MCV 88.9 (78-100) fl MCH 27.0 (26-32) pg MCHC 30.4 L (32-36) g/dl RDW 15.6 H (11.5-14.0) % Plt Count 183 (150-450) K/mm3 MPV 10.5 (7.5-11.0) fl Gran % 74.1 H (36.0-66.0) % Eos # (Auto) 0.07 (0-0.5) Absolute Lymphs (auto) 0.68 L (1.0-4.6) Absolute Monos (auto) 1.02 (0.0-1.3) Lymphocytes % 9.8 L (24.0-44.0) % Monocytes % 14.7 H (0.0-12.0) % Eosinophils % 1.0 (0.00-5.0) % Basophils % 0.4 (0.0-0.4) % Absolute Granulocytes 5.13 (1.4-6.9) Basophils # 0.03 (0-0.4) Sodium (137-145) mmol/L Potassium (3.5-5.1) mmol/L Chloride (98-107) mmol/L Carbon Dioxide (22-30) mmol/L Anion Gap (5-15) MEQ/L BUN (7-17) mg/dL Creatinine (0.52-1.04) mg/dL Estimated GFR ML/MIN Glucose (74-106) mg/dL Lactic Acid (0.4-2.0) Calcium (8.4-10.2) mg/dL Total Bilirubin (0.2-1.3) mg/dL AST (14-36) U/L ALT (0-35) U/L Alkaline Phosphatase (38-126) U/L NT-Pro-B Natriuret Pep (0-1800) pg/mL Serum Total Protein (6.3-8.2) g/dL Albumin (3.5-5.0) g/dL Urine Color YELLOW (YELLOW) Urine Appearance CLEAR (CLEAR) Urine pH 5.0 (5-6) Ur Specific [place] 1.004 (1.005-1.025) Urine Protein NEGATIVE (Negative) Urine Ketones NEGATIVE (NEGATIVE) Urine Blood MODERATE (0-5) Wilbert/ul Urine Nitrite NEGATIVE (NEGATIVE) Urine Bilirubin NEGATIVE (NEGATIVE) Urine Urobilinogen NEGATIVE (0-1) mg/dL Ur Leukocyte Esterase NEGATIVE (NEGATIVE) Urine WBC (Auto) NONE (0-5) /HPF Urine RBC (Auto) 3-5 (0-2) /HPF U Epithel Cells (Auto) NONE (FEW) /HPF Urine Bacteria (Auto) NONE (NEGATIVE) /HPF Urine Mucus (Auto) SLIGHT (NEGATIVE) /HPF Urine Culture Reflexed NO (NO) Urine Glucose NEGATIVE (NEGATIVE) mg/dL Monoscreen NEGATIVE (Negative) 08/31/19 Range/Units 04:16 WBC (4.0-10.5) K/mm3 RBC (4.1-5.4) M/mm3 Hgb (12.0-16.0) gm/dl Hct (35-47) % MCV (78-100) fl MCH (26-32) pg MCHC (32-36) g/dl RDW (11.5-14.0) % Plt Count (150-450) K/mm3 MPV (7.5-11.0) fl Gran % (36.0-66.0) % Eos # (Auto) (0-0.5) Absolute Lymphs (auto) (1.0-4.6) Absolute Monos (auto) (0.0-1.3) Lymphocytes % (24.0-44.0) % Monocytes % (0.0-12.0) % Eosinophils % (0.00-5.0) % Basophils % (0.0-0.4) % Absolute Granulocytes (1.4-6.9) Basophils # (0-0.4) Sodium 140 (137-145) mmol/L Potassium 3.1 L (3.5-5.1) mmol/L Chloride 105 (98-107) mmol/L Carbon Dioxide 25 (22-30) mmol/L Anion Gap 12.3 (5-15) MEQ/L BUN 30 H (7-17) mg/dL Creatinine 1.96 H (0.52-1.04) mg/dL Estimated GFR 26.1 ML/MIN Glucose 134 H (74-106) mg/dL Lactic Acid (0.4-2.0) Calcium 8.4 (8.4-10.2) mg/dL Total Bilirubin 2.40 H (0.2-1.3) mg/dL AST 536 H (14-36) U/L ALT 590 H (0-35) U/L Alkaline Phosphatase 269 H (38-126) U/L NT-Pro-B Natriuret Pep (0-1800) pg/mL Serum Total Protein 7.4 (6.3-8.2) g/dL Albumin 3.8 (3.5-5.0) g/dL Urine Color (YELLOW) Urine Appearance (CLEAR) Urine pH (5-6) Ur Specific [place] (1.005-1.025) Urine Protein (Negative) Urine Ketones (NEGATIVE) Urine Blood (0-5) Wilbert/ul Urine Nitrite (NEGATIVE) Urine Bilirubin (NEGATIVE) Urine Urobilinogen (0-1) mg/dL Ur Leukocyte Esterase (NEGATIVE) Urine WBC (Auto) (0-5) /HPF Urine RBC (Auto) (0-2) /HPF U Epithel Cells (Auto) (FEW) /HPF Urine Bacteria (Auto) (NEGATIVE) /HPF Urine Mucus (Auto) (NEGATIVE) /HPF Urine Culture Reflexed (NO) Urine Glucose (NEGATIVE) mg/dL Monoscreen (Negative) Accuchecks Accucheck Value: 134 - Radiology Impressions Radiology Exams & Impressions: Radiology Procedures Category Date Time Status CHEST 1 VIEW (PORTABLE) Stat Exams 08/30/19 19:48 Taken GALLBLADDER [US] Routine Exams 08/31/19 Ordered - Other Procedures and Tests Respiratory Therapy 08/31/19 02:12 BiPap/CPAP ROUTINE Respiratory Therapy Assessment DAILY 08/31/19 04:00 Oxygen Nasal Cannula 4 lpm 08/31/19 07:00 Peak Expiratory Flow Rate ONCE Assessment/Plan (1) Pneumonia Current Visit: Yes Status: Acute Assessment & Plan: on rocephin/zithromax. Code(s): J18.9 - PNEUMONIA, UNSPECIFIED ORGANISM (2) Elevated liver enzymes Current Visit: Yes Status: Acute Assessment & Plan: check RUQ ultrasound today Code(s): R74.8 - ABNORMAL LEVELS OF OTHER SERUM ENZYMES (3) Weakness Current Visit: Yes Status: Acute Assessment & Plan: PT/OT Code(s): R53.1 - WEAKNESS
[2019-08-31] MEDS ORDERED: SODIUM CHLORIDE 0.45% W/ 20 mEq KCL 1,000 ML IV SCH (08:45)
--- NOTE | 2019-08-31 08:48 | XRAY ---
Indication: Fever and cough. Comparison: July 24, 2019. Portable chest again demonstrates bibasilar infiltrates versus atelectasis, borderline cardiomegaly, left pacemaker, and tortuous descending aorta. No new cardiopulmonary abnormalities.
[2019-08-31 09:49] LABS: AMYLASE 66 U/L (30-110); LIPASE 70 U/L (23-300)
[2019-08-31] MEDS ORDERED: ZITHROMAX IV 500 MG*** 0 MG in Sodium Chloride 0.9% 250 ML 250 ML IV SCH (10:00)
[2019-08-31] MEDS ORDERED: BABY ASPIRIN 81 MG CHEW PO SCH (10:00)
[2019-08-31] MEDS ORDERED: NON-FORMULARY ITEM (Donepezil Hcl [Aricept] 5 MG) PO SCH (10:00)
[2019-08-31] MEDS ORDERED: NON-FORMULARY ITEM (Losartan Potassium [Cozaar] 100 MG) PO SCH (10:00)
[2019-08-31] MEDS: Zithromax 500 MG/ 250 ML NaCl Premix 500 MG/250 ML IVPB IV SCH (10:41)
--- NOTE | 2019-08-31 11:29 | XRAY ---
Indication: Elevated liver function tests. Two-dimensional gallbladder sonogram performed. Comparison: None Gallbladder normally distended with minimal sludge and tiny gravel/stones in the dependent portion. There is borderline gallbladder wall thickening measuring 2.9 mm. No pericholecystic fluid. Common bile duct measures 3.4 mm. No intrahepatic biliary distention or hepatomegaly. Remaining visualized portions of the liver, pancreas, and right kidney appear sonographically unremarkable. Right kidney measures 11.5 cm in length. No ascites. Impression: Minimal gallbladder sludge with tiny gravel/stones and borderline wall thickening. Rule out chronic cholecystitis. Remaining gallbladder sonogram is negative.
[2019-08-31] MEDS: Lexapro 10 MG PO SCH (12:11)
[2019-08-31] MEDS: Aricept 10 MG PO SCH (12:11)
[2019-08-31] MEDS: Cozaar 50 MG PO SCH (12:12)
[2019-08-31] MEDS: Protonix 40MG Tablet PO SCH (12:13)
[2019-08-31] MEDS: ECOTRIN 81 MG PO SCH (12:13)
[2019-08-31] MEDS: NORVASC 5 MG PO SCH (12:13)
[2019-08-31] MEDS ORDERED: ROCEPHIN 1 Gm-D5w 50 ml Bag** 1 G/50 ML IVPB IV SCH (22:00)
[2019-09-01 05:21] LABS: Absolute Neutrophil Ct (ANC) 3.58 (1.4-6.9); BASOPHIL % 0.8 % (0.0-0.4); Basophil (Absolute #) 0.04 (0-0.4); Eosinophil % 4.9 % (0.00-5.0); Eosinophil (Absolute #) 0.26 (0-0.5); Hematocrit 32.6 % (35-47); Hemoglobin 9.6 gm/dl (12.0-16.0); Lymphocyte (Absolute #) 0.64 (1.0-4.6); Lymphocytes % 12.1 % (24.0-44.0); Mean Cell Volume 91.1 fl (78-100); Mean Corpuscular Hemoglobin 26.8 pg (26-32); Mean Corpuscular Hgb Concent. 29.4 g/dl (32-36); Mean Platelet Volume 10.6 fl (7.5-11.0); Monocyte (Absolute #) 0.78 (0.0-1.3); Monocytes % 14.7 % (0.0-12.0); Neutrophil % 67.5 % (36.0-66.0); Platelet Count 182 K/mm3 (150-450); Red Blood Count 3.58 M/mm3 (4.1-5.4); White Blood Count 5.3 K/mm3 (4.0-10.5)
[2019-09-01 05:38] LABS: ALBUMIN 3.4 g/dL (3.5-5.0); ANION GAP 10.1 MEQ/L (5-15); BILIRUBIN,TOTAL 1.1 mg/dL (0.2-1.3); Calcium 8.4 mg/dL (8.4-10.2); Creatinine 1 1.91 mg/dL (0.52-1.04); MAGNESIUM 1.9 mg/dL (1.6-2.3)
[2019-09-01 05:47] LABS: Potassium 4.1 mmol/L (3.5-5.1)
[2019-09-01 06:20] LABS: HEPATITIS A IGM Non Reactive (Non Reactive); HEPATITIS B VIRUS CORE TOT AB Non Reactive (Non Reactive); HEPATITIS C VIRUS ANTIBODY Non Reactive (Non Reactive); Hepatitis B Surface Ab.Quant. <3.50 mIU/mL (0.00-8.49); Hepatitis B Surface Antigen Non Reactive (Non Reactive)
[2019-09-01] MEDS: PROVENTIL 2.5 MG/3 ML NEB IH SCH ×2 (06:38→10:18)
--- NOTE | 2019-09-01 09:11 | PCM.NOTE ---
Date and Time: 09/01/19 0909 Subjective Assessment: patient denies any pain or nausea, she is tolerating liquid diet. hasn't had anything yet this morning. Objective Exam General Appearance: no apparent distress Neurologic Exam: alert, cooperative Respiratory Exam: rhonchi Cardiovascular Exam: regular rate/rhythm, normal heart sounds Gastrointestinal/Abdomen Exam: soft, No tenderness, No mass Extremity Exam: normal inspection, normal range of motion OBJECTIVE DATA Vital Signs: Vital Signs - 24 hr Temp Pulse Resp BP Pulse Ox 09/01/19 08:00 98.2 F 60 20 140/67 95 09/01/19 06:38 63 20 93 L 09/01/19 04:00 98.2 F 59 L 20 161/75 97 08/31/19 23:46 98.4 F 60 20 134/63 97 08/31/19 20:07 98.5 F 63 22 135/69 98 08/31/19 19:45 65 20 97 08/31/19 16:00 61 20 134/63 92 L 08/31/19 15:22 68 18 94 L 08/31/19 12:00 64 20 134/65 92 L 08/31/19 11:47 77 20 90 L Oxygen-Last 24 hours Oxygen Flowrate (L/min)-RT 2 Pain Assessment - Last Documented Pain Intensity 0 Pain Scale Used FLACC Intake and Output: Intake & Output 08/29/19 08/30/19 08/31/19 09/01/19 11:59 11:59 11:59 11:59 Intake Total 976 3317 Output Total 1900 2450 Balance -924 867 Weight 94.5 kg 94.8 kg Lab Results: Accuchecks Date 08/31/19 Time 16:29 Accucheck Value: 149 Accucheck Value: 141 Accucheck Value: 141 Accucheck Value: 97 Lab Results-Last 24 Hours 08/30/19 08/31/19 08/31/19 Range/Units 20:35 05:00 05:00 WBC (4.0-10.5) K/mm3 RBC (4.1-5.4) M/mm3 Hgb (12.0-16.0) gm/dl Hct (35-47) % MCV (78-100) fl MCH (26-32) pg MCHC (32-36) g/dl RDW (11.5-14.0) % Plt Count (150-450) K/mm3 MPV (7.5-11.0) fl Gran % (36.0-66.0) % Eos # (Auto) (0-0.5) Absolute Lymphs (auto) (1.0-4.6) Absolute Monos (auto) (0.0-1.3) Lymphocytes % (24.0-44.0) % Monocytes % (0.0-12.0) % Eosinophils % (0.00-5.0) % Basophils % (0.0-0.4) % Absolute Granulocytes (1.4-6.9) Basophils # (0-0.4) Sodium (137-145) mmol/L Potassium (3.5-5.1) mmol/L Chloride (98-107) mmol/L Carbon Dioxide (22-30) mmol/L Anion Gap (5-15) MEQ/L BUN (7-17) mg/dL Creatinine (0.52-1.04) mg/dL Estimated GFR ML/MIN Glucose (74-106) mg/dL Hemoglobin A1c 6.06 H (4.5-6.0) % Calcium (8.4-10.2) mg/dL Magnesium (1.6-2.3) mg/dL Total Bilirubin (0.2-1.3) mg/dL AST (14-36) U/L ALT (0-35) U/L Alkaline Phosphatase (38-126) U/L Serum Total Protein (6.3-8.2) g/dL Albumin (3.5-5.0) g/dL Amylase 66 (30-110) U/L Lipase 70 (23-300) U/L Hepatitis A IgM Ab Non Reactive (Non Reactive) Hep Bs Antigen Non Reactive (Non Reactive) Hep Bs Antibody, Quant <3.50 (0.00-8.49) mIU/mL Hep B Core Total Ab Non Reactive (Non Reactive) Hepatitis C Antibody Non Reactive (Non Reactive) 09/01/19 09/01/19 Range/Units 04:25 04:25 WBC 5.3 (4.0-10.5) K/mm3 RBC 3.58 L (4.1-5.4) M/mm3 Hgb 9.6 L (12.0-16.0) gm/dl Hct 32.6 L (35-47) % MCV 91.1 (78-100) fl MCH 26.8 (26-32) pg MCHC 29.4 L (32-36) g/dl RDW 16.0 H (11.5-14.0) % Plt Count 182 (150-450) K/mm3 MPV 10.6 (7.5-11.0) fl Gran % 67.5 H (36.0-66.0) % Eos # (Auto) 0.26 (0-0.5) Absolute Lymphs (auto) 0.64 L (1.0-4.6) Absolute Monos (auto) 0.78 (0.0-1.3) Lymphocytes % 12.1 L (24.0-44.0) % Monocytes % 14.7 H (0.0-12.0) % Eosinophils % 4.9 (0.00-5.0) % Basophils % 0.8 (0.0-0.4) % Absolute Granulocytes 3.58 (1.4-6.9) Basophils # 0.04 (0-0.4) Sodium 141 (137-145) mmol/L Potassium 4.1 D (3.5-5.1) mmol/L Chloride 109 H (98-107) mmol/L Carbon Dioxide 27 (22-30) mmol/L Anion Gap 10.1 (5-15) MEQ/L BUN 24 H (7-17) mg/dL Creatinine 1.91 H (0.52-1.04) mg/dL Estimated GFR 26.9 ML/MIN Glucose 174 H (74-106) mg/dL Hemoglobin A1c (4.5-6.0) % Calcium 8.4 (8.4-10.2) mg/dL Magnesium 1.9 (1.6-2.3) mg/dL Total Bilirubin 1.10 (0.2-1.3) mg/dL AST 224 H (14-36) U/L ALT 367 H (0-35) U/L Alkaline Phosphatase 237 H (38-126) U/L Serum Total Protein 7.0 (6.3-8.2) g/dL Albumin 3.4 L (3.5-5.0) g/dL Amylase (30-110) U/L Lipase (23-300) U/L Hepatitis A IgM Ab (Non Reactive) Hep Bs Antigen (Non Reactive) Hep Bs Antibody, Quant (0.00-8.49) mIU/mL Hep B Core Total Ab (Non Reactive) Hepatitis C Antibody (Non Reactive) Radiology Exams: Radiology Procedures Category Date Time Status CHEST 1 VIEW (PORTABLE) Stat Exams 08/30/19 19:48 Completed GALLBLADDER [US] Routine Exams 08/31/19 10:21 Completed Multi-Disciplinary Progress Notes: Multi-Disciplinary Progress Notes 08/31/19 10:52 Case Management Note by Jenny Sotelo ATTEMPTED TO CALL [facility] (PER PRIMARY RN THIS S PATIENT'S CAREGIVER)- NO ANSWER AT THIS TIME. WILL ATTEMPT TO REACH AGAIN AT A LATER DATE/TIME Initialized on 08/31/19 10:52 - END OF NOTE 08/31/19 10:01 Pharmacy Note by Amilcar Hill Please be aware of possible drug interaction with Zithromax and Aricept and Lexapro. May prolong QT interval. Initialized on 08/31/19 10:01 - END OF NOTE Assessment/Plan (1) Pneumonia Current Visit: Yes Status: Acute Assessment & Plan: continue rocephin/zithromax Code(s): J18.9 - PNEUMONIA, UNSPECIFIED ORGANISM (2) Elevated liver enzymes Current Visit: Yes Status: Acute Assessment & Plan: gallstones on u/s with borderline wall thickening, LFT's are improving since admission. will consult surgery for opinion regarding conservative management vs surgical intervention Code(s): R74.8 - ABNORMAL LEVELS OF OTHER SERUM ENZYMES (3) Gallstone Current Visit: Yes Status: Acute Assessment & Plan: surgery consult Code(s): K80.20 - CALCULUS OF GALLBLADDER W/O CHOLECYSTITIS W/O OBSTRUCTION (4) Weakness Current Visit: Yes Status: Acute Code(s): R53.1 - WEAKNESS
[2019-09-01 10:32] VITALS: O2SAT 98
--- NOTE | 2019-09-01 10:56 | PCM.DS ---
Discharge Summary Date of Admission: 08/30/19 23:49 Admitting Physician: JANNETTE YADAV Consults: Consults on Case 09/01/19 09:08 Consult Surgery ROUTINE Primary Care Provider: JANNETTE YADAV Allergies Allergies carvedilol Allergy (Verified 08/30/19 19:11) Hospital Summary - Hospital Course Hospital Course: patient was seen in surgical consultation by Dr Yvan Leon today who recommends cholecystectomy, secondary to her cardiac and pulmonary history surgery and anesthesia suggest transfer for procedure. the patient's family agree with transfer to [facility] for higher level of care and availability of specialty consultation for any complications following surgery. - Vitals & Intake/Output Vital Signs: Vital Signs Temperature 98.2 F 09/01/19 08:00 Pulse Rate 65 09/01/19 10:22 Respiratory Rate 20 09/01/19 10:22 Blood Pressure 140/67 09/01/19 08:00 O2 Sat by Pulse Oximetry 98 09/01/19 10:22 Intake & Output: Intake & Output 08/29/19 08/30/19 08/31/19 09/01/19 11:59 11:59 11:59 11:59 Intake Total 976 3317 Output Total 1900 2450 Balance -924 867 Weight 94.5 kg 94.8 kg - Lab Result Diagrams: 09/01/19 04:25 09/01/19 04:25 Lab Results-Last 24 Hrs: Accuchecks Date 09/01/19 Date 08/31/19 Time 07:30 Time 16:29 Accucheck Value: 174 Accucheck Value: 149 Accucheck Value: 141 Accucheck Value: 141 Accucheck Value: 97 Lab Results-Last 24 Hours 08/30/19 08/31/19 09/01/19 Range/Units 20:35 05:00 04:25 WBC 5.3 (4.0-10.5) K/mm3 RBC 3.58 L (4.1-5.4) M/mm3 Hgb 9.6 L (12.0-16.0) gm/dl Hct 32.6 L (35-47) % MCV 91.1 (78-100) fl MCH 26.8 (26-32) pg MCHC 29.4 L (32-36) g/dl RDW 16.0 H (11.5-14.0) % Plt Count 182 (150-450) K/mm3 MPV 10.6 (7.5-11.0) fl Gran % 67.5 H (36.0-66.0) % Eos # (Auto) 0.26 (0-0.5) Absolute Lymphs (auto) 0.64 L (1.0-4.6) Absolute Monos (auto) 0.78 (0.0-1.3) Lymphocytes % 12.1 L (24.0-44.0) % Monocytes % 14.7 H (0.0-12.0) % Eosinophils % 4.9 (0.00-5.0) % Basophils % 0.8 (0.0-0.4) % Absolute Granulocytes 3.58 (1.4-6.9) Basophils # 0.04 (0-0.4) Sodium (137-145) mmol/L Potassium (3.5-5.1) mmol/L Chloride (98-107) mmol/L Carbon Dioxide (22-30) mmol/L Anion Gap (5-15) MEQ/L BUN (7-17) mg/dL Creatinine (0.52-1.04) mg/dL Estimated GFR ML/MIN Glucose (74-106) mg/dL Hemoglobin A1c 6.06 H (4.5-6.0) % Calcium (8.4-10.2) mg/dL Magnesium (1.6-2.3) mg/dL Total Bilirubin (0.2-1.3) mg/dL AST (14-36) U/L ALT (0-35) U/L Alkaline Phosphatase (38-126) U/L Serum Total Protein (6.3-8.2) g/dL Albumin (3.5-5.0) g/dL Hepatitis A IgM Ab Non Reactive (Non Reactive) Hep Bs Antigen Non Reactive (Non Reactive) Hep Bs Antibody, Quant <3.50 (0.00-8.49) mIU/mL Hep B Core Total Ab Non Reactive (Non Reactive) Hepatitis C Antibody Non Reactive (Non Reactive) 09/01/19 Range/Units 04:25 WBC (4.0-10.5) K/mm3 RBC (4.1-5.4) M/mm3 Hgb (12.0-16.0) gm/dl Hct (35-47) % MCV (78-100) fl MCH (26-32) pg MCHC (32-36) g/dl RDW (11.5-14.0) % Plt Count (150-450) K/mm3 MPV (7.5-11.0) fl Gran % (36.0-66.0) % Eos # (Auto) (0-0.5) Absolute Lymphs (auto) (1.0-4.6) Absolute Monos (auto) (0.0-1.3) Lymphocytes % (24.0-44.0) % Monocytes % (0.0-12.0) % Eosinophils % (0.00-5.0) % Basophils % (0.0-0.4) % Absolute Granulocytes (1.4-6.9) Basophils # (0-0.4) Sodium 141 (137-145) mmol/L Potassium 4.1 D (3.5-5.1) mmol/L Chloride 109 H (98-107) mmol/L Carbon Dioxide 27 (22-30) mmol/L Anion Gap 10.1 (5-15) MEQ/L BUN 24 H (7-17) mg/dL Creatinine 1.91 H (0.52-1.04) mg/dL Estimated GFR 26.9 ML/MIN Glucose 174 H (74-106) mg/dL Hemoglobin A1c (4.5-6.0) % Calcium 8.4 (8.4-10.2) mg/dL Magnesium 1.9 (1.6-2.3) mg/dL Total Bilirubin 1.10 (0.2-1.3) mg/dL AST 224 H (14-36) U/L ALT 367 H (0-35) U/L Alkaline Phosphatase 237 H (38-126) U/L Serum Total Protein 7.0 (6.3-8.2) g/dL Albumin 3.4 L (3.5-5.0) g/dL Hepatitis A IgM Ab (Non Reactive) Hep Bs Antigen (Non Reactive) Hep Bs Antibody, Quant (0.00-8.49) mIU/mL Hep B Core Total Ab (Non Reactive) Hepatitis C Antibody (Non Reactive) Micro Results-Entire Visit: Microbiology 08/30/19 21:00 Urine Culture - Final Catherized NO GROWTH 08/30/19 20:35 Blood Culture - Preliminary Blood NO GROWTH TO DATE 08/30/19 20:35 Blood Culture - Preliminary Blood NO GROWTH TO DATE Accuchecks Date 09/01/19 Date 08/31/19 Time 07:30 Time 16:29 Accucheck Value: 174 Accucheck Value: 149 Accucheck Value: 141 Accucheck Value: 141 Accucheck Value: 97 - Radiology Exams Ordered Rad Exams-Entire Visit: Radiology Procedures Category Date Time Status CHEST 1 VIEW (PORTABLE) Stat Exams 08/30/19 19:48 Completed GALLBLADDER [US] Routine Exams 08/31/19 10:21 Completed - Procedures and Test Procedures and Tests throughout Hospitalization: Therapy Orders & Screens 08/30/19 20:04 Respiratory Therapy Assessment DAILY Comment: 08/30/19 23:55 Respiratory Therapy Consult ROUTINE Comment: Reason For Exam: 08/31/19 02:12 BiPap/CPAP ROUTINE Comment: UNIT IS PT HM UNIT Diagnosis: fever, weakness, elevated liver enzymes Respiratory Therapy Assessment DAILY Comment: Diagnosis: fever, weakness, elevated liver enzymes 08/31/19 04:00 Oxygen Nasal Cannula 4 lpm Comment: Diagnosis: fever, weakness, elevated liver enzymes 08/31/19 07:00 Peak Expiratory Flow Rate ONCE Comment: Reason For Exam: Diagnosis: fever, weakness, elevated liver enzymes 08/31/19 08:43 OT Eval and Treat (MD Order) ROUTINE Comment: Consulting Provider: Physician Instructions: Reason For Exam: Diagnosis: fever, weakness, elevated liver enzymes PT Eval & Treat (MD Order) ROUTINE Reason for Eval:: weakness Diagnosis: fever, weakness, elevated liver enzymes Discharge Exam General Appearance: no apparent distress Neurologic Exam: alert Respiratory Exam: normal breath sounds, lungs clear, No respiratory distress Cardiovascular Exam: regular rate/rhythm, normal heart sounds Gastrointestinal/Abdomen Exam: soft, No tenderness, No mass Extremity Exam: normal inspection Skin Exam: normal color, warm, dry Final Diagnosis/Problem List - Final Discharge Diagnosis/Problem (1) Gallstone Current Visit: Yes Status: Acute Assessment & Plan: transfer to [facility], Dr Bueno accepting for hospialist service to general med/surg bed with telemetry Code(s): K80.20 - CALCULUS OF GALLBLADDER W/O CHOLECYSTITIS W/O OBSTRUCTION (2) Pneumonia Current Visit: Yes Status: Acute Code(s): J18.9 - PNEUMONIA, UNSPECIFIED ORGANISM (3) Elevated liver enzymes Current Visit: Yes Status: Acute Code(s): R74.8 - ABNORMAL LEVELS OF OTHER SERUM ENZYMES (4) Chronic hypoxemic respiratory failure Current Visit: Yes Status: Acute (5) CHF (congestive heart failure) Current Visit: No Status: Acute Code(s): I50.9 - HEART FAILURE, UNSPECIFIED (6) Atrial fibrillation Current Visit: No Status: Chronic Code(s): I48.91 - UNSPECIFIED ATRIAL FIBRILLATION (7) COPD (chronic obstructive pulmonary disease) Current Visit: No Status: Resolved - Discharge Disposition: DC TO [facility] Condition: Fair Prescriptions: No Action Apixaban [Eliquis 5 mg Tablet] 2.5 mg PO BID Bumetanide 1 mg [Bumex 1 mg] 1 mg PO DAILY Memantine HCl 5 mg PO QHS PANTOPRAZOLE 40 mg Tablet [Protonix 40MG Tablet] 40 mg PO DAILY Losartan Potassium [Cozaar] 100 mg PO DAILY Folic Acid 1 mg [Folate 1 mg] 1 mg PO DAILY Donepezil HCl [Aricept] 5 mg PO DAILY Amlodipine Besylate 5 mg [Norvasc 5 mg] 5 mg PO DAILY Atorvastatin Calcium 40 mg PO HS Nitroglycerin 0.4 mg Tablet [Nitrostat 0.4 MG Tablet] 1 tablet SL UD PRN PRN Reason: Chest Pain Olanzapine 10 mg PO HS Insulin Glargine,Hum.rec.anlog [Lantus] 32 unit SQ BID Escitalopram Oxalate 10 mg [Lexapro 10 MG] 10 mg PO DAILY Aspirin 81 gm Chew [Baby Aspirin 81 mg Chew] 81 mg PO DAILY Cholecalciferol (Vitamin D3) [Vitamin D3] 10,000 unit PO WEEKLY Insulin Lispro [Humalog] 10 unit SQ TIDWM
[2019-09-01] MEDS: Zithromax 500 MG/ 250 ML NaCl Premix 500 MG/250 ML IVPB IV SCH (11:06)
[2019-09-01] MEDS: Aricept 10 MG PO SCH (11:06)
[2019-09-01] MEDS: Cozaar 50 MG PO SCH (11:16)
[2019-09-01] MEDS: ECOTRIN 81 MG PO SCH (11:18)
[2019-09-01] MEDS: ELIQUIS 2.5 MG TABLET PO SCH (11:18)
[2019-09-01] MEDS: Lexapro 10 MG PO SCH (11:19)
[2019-09-01] MEDS: Protonix 40MG Tablet PO SCH (11:19)
[2019-09-01] MEDS: NORVASC 5 MG PO SCH (11:20)
[2019-09-01 11:30] VITALS: BP 163/68; PULSE 61
--- NOTE | 2019-09-04 12:05 | CONS ---
CONSULT DATE: 09/01/2019 REASON FOR CONSULT: Cholelithiasis. HISTORY: The patient is an 79 year-old female with extensive past medical history including c chronic obstructive pulmonary disease on home oxygen, obstructive sleep apnea on CPAP, hyperlipidemia, hypertension, possibly atrial fibrillation on Eliquis, prior stroke, congestive heart failure with preserved left ventricular ejection fraction 58%, diabetes mellitus type 2, osteoarthritis, chronic kidney disease with prior nephrectomy. She was admitted to the hospital with elevated liver function tests. Work up with ultrasound showed cholelithiasis. Subsequently her liver function tests dramatically improved. On my evaluation today, she does not complain of current abdominal pain. She did complain of febrile feeling on the right side to her daughter. She does live at home with her daughter and has fair functional status. Despite her dementia she is oriented to present and walks 500 feet with walker each day. She is fairly independent in the house. REVIEW OF SYSTEMS: See history of present illness. Limited due to dementia. PAST MEDICAL HISTORY: See history of present illness. ALLERGIES: ALLERGIES REVIEWED. MEDICATIONS: Medications reviewed including apixaban, aspirin. PAST SURGICAL HISTORY: Tubal. Eye surgery. Bladder surgery. Nephrectomy one year ago. SOCIAL HISTORY: Former smoker. No alcohol. Lives with daughter. FAMILY HISTORY: Noncontributory. PHYSICAL EXAMINATION: Afebrile. Vital signs normal, in no acute distress. HEENT: Sclera nonicteric. NECK: Symmetric, no mass. CHEST: Nonlabored respirations. ABDOMEN: Obese, soft, nondistended, nontender to palpation diffusely. No Carmona. EXTREMITIES: Mild peripheral edema. LAB DATA AND TESTS: On 09/01/2019, white count 5.3, hemoglobin 9.6, PLT 182,000. Creatinine 1.9 from 2.2. Total bilirubin is 1.1 from 2.6. ALT 367 and AST 224 from ALT 674 and AST 680. Alkaline phosphatase 237 from 300. Imaging studies: Ultrasound right upper quadrant revealed gallstone and sludge. Common bile duct is normal diameter. There is no wall thickening. There is no Carmona sign. ASSESSMENT AND PLAN: An 79 year-old female with likely passed choledocholithiasis. Her lab work has dramatically improved. Her ultrasound showed no ductal dilation. She had a benign exam. She does have numerous medical comorbidities. I discussed with the daughter options of conservative treatment with no intervention although there is a high recurrence rate of choledocholithiasis or pancreatitis if nothing is done. Given her decent quality of life currently, the daughter would prefer something be done. Options of ERCP with sphincterotomy versus cholecystectomy were discussed. Ultimately, she wants cholecystectomy. Due to her medical comorbidities she is going to be transferred to [facility] for specialist care in the event that she would have a perioperative complication and this was discussed with Dr. Rouse and she is going to be transferred.
== END 2019-09-01 12:25 | disposition home or self-care (01) ==
LOC: ED 18:28 → MED SURG 23:49
PROVIDERS: ADMIT Family Medicine; ATTEND Family Medicine
DX: J18.9 Pneumonia, unspecified organism (principal); K80.80 Other cholelithiasis without obstruction; R74.8 Abnormal levels of other serum enzymes; J96.11 Chronic respiratory failure with hypoxia; I50.9 Heart failure, unspecified; E11.9 Type 2 diabetes mellitus without complications; I48.91 Unspecified atrial fibrillation; G47.33 Obstructive sleep apnea (adult) (pediatric); I10 Essential (primary) hypertension; J44.9 Chronic obstructive pulmonary disease, unspecified; E78.5 Hyperlipidemia, unspecified; Z79.01 Long term (current) use of anticoagulants; Z79.899 Other long term (current) drug therapy; Z99.81 Dependence on supplemental oxygen; R53.1 Weakness
CPT/HCPCS: 36000; 36415; 71045; 76705; 80053; 80074; 81001; 82150; 82962; 83036; 83605; 83690; 83735; 83880; 85025; 86308; 87040; 87086; 93041; 94640; 94760; 96360; 96365; 97530; 99285; G0378; J0456; J0696; J7609; A9270-GY

== ENCOUNTER 2021-03-22 00:08 | Inpatient (IN) | payer MEDICARE, OTHER ==
[2021-03-22] MEDS ORDERED: solu-MEDROL 125 MG, Sterile H2O 10 ml 2 ML IV ONE ×2 (00:12)
[2021-03-22] MEDS ORDERED: Zithromax 500 MG/ 250 ML NaCl Premix 500 MG/250 ML IVPB IV STA (00:13)
[2021-03-22] MEDS ORDERED: ROCEPHIN 2 Gm-D5w 50ML BAG** 2 G/50 ML IVPB IV STA (00:13)
--- NOTE | 2021-03-22 00:52 | ERPHSYRPT ---
- History of Present Illness Time Seen by Provider: 03/22/21 00:12 Source: patient, EMS Exam Limitations: clinical condition Patient Subjective Stated Complaint: ems states "Family called 911 because they were unable to get her O2 up." Triage Nursing Assessment: pt arrived to er via ambulance; pt is axo x3; [place]; c/o SOB; denies pain; ems states "family was unable to get O2 up after being put on 15L via NC"; pt received 2 duo nebs enroute via ems; pt arrived on neb stating 88%; pt has wheezing in all lobes; productive moist cough Physician History: 81 years old female with history of diabetes mellitus, hypertension, congestive heart failure, chronic respiratory failure secondary to COPD on 2 L oxygen, multiple pneumonias in the past, on Eliquis presented in the ER with increasing shortness of breath for the last few days and tonight her oxygen saturation was in low 80s despite being on 2 L, family found that she was pale and struggling to breathe and increased oxygen to 15 L and still was hypoxic. EMS gave 2 DuoNeb's prior to arrival in the ER and currently on nonrebreather with saturation around 88%. Patient reports coughing productive of yellow-green sputum copious in amount with chest tightness and pressure with generalized feeling of weakness fatigue and tiredness. Did receive Covid vaccination. Denies any sick contact. Patient is not a very good historian and history is limited secondary to her respiratory distress. Timing/Duration: week(s), gradual onset, worse Activities at Onset: rest Severity of Dyspnea-Max: severe Severity of Dyspnea-Current: moderate Possible Cause: occasional episodes Modifying Factors: Improves With: albuterol nebulizer, oxygen. Worsens With: coughing Associated Symptoms: cough, wheezing, heaviness, productive cough, tightness Allergies/Adverse Reactions: carvedilol Allergy (Verified 03/22/21 11:52) Home Medications: Amlodipine Besylate 5 mg [Norvasc 5 mg] 5 mg PO DAILY 02/08/18 [History] Apixaban [Eliquis 5 mg Tablet] 2.5 mg PO BID 02/08/18 [History] Atorvastatin Calcium 40 mg PO HS 02/08/18 [History] Bumetanide 1 mg [Bumex 1 mg] 1 mg PO DAILY 02/08/18 [History] Donepezil HCl [Aricept] 5 mg PO DAILY 02/08/18 [History] Folic Acid 1 mg [Folate 1 mg] 1 mg PO DAILY 02/08/18 [History] Losartan Potassium [Cozaar] 100 mg PO DAILY 02/08/18 [History] Memantine HCl 5 mg PO QHS 02/08/18 [History] Nitroglycerin 0.4 mg Tablet [Nitrostat 0.4 MG Tablet] 1 tablet SL UD PRN 02/08/18 [History] PANTOPRAZOLE 40 mg Tablet [Protonix 40MG Tablet] 40 mg PO DAILY 02/08/18 [History] Olanzapine 10 mg PO HS 02/27/19 [History] Insulin Glargine,Hum.rec.anlog [Lantus] 32 unit SQ BID 04/19/19 [History] Aspirin 81 gm Chew [Baby Aspirin 81 mg Chew] 81 mg PO DAILY 08/30/19 [History] Escitalopram Oxalate 10 mg [Lexapro 10 MG] 10 mg PO DAILY 08/30/19 [History] Cholecalciferol (Vitamin D3) [Vitamin D3] 10,000 unit PO WEEKLY 08/31/19 [History] Insulin Lispro [Humalog] 10 unit SQ TIDWM 08/31/19 [History] Hx Tetanus, Diphtheria Vaccination/Date Given: Yes Hx Influenza Vaccination/Date Given: Yes Hx Pneumococcal Vaccination/Date Given: Yes Travel Risk - International Travel Have you traveled outside of the country in past 3 weeks: No - Coronavirus Screening Are you exhibiting any of the following symptoms?: Yes Symptoms: Shortness of Breath Close contact with a COVID-19 positive Pt in past 14-21 Days: No - Vaccine Status Have you recieved a Covid-19 vaccination: Yes 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: Unknown - Vaccination Dates Dates if Unknown: unknown - Review of Systems Constitutional: Fatigue, Weakness Eyes: No Symptoms Ears, Nose, & Throat: Nose Congestion Respiratory: Cough, Dyspnea, Wheezing Musculoskeletal: Arthralgias All Other Systems: Unable due to condition - Past Medical History Pertinent Past Medical History: Yes Neurological History: Alzheimer's Disease, Dementia, Peripheral Neuropathy, Stroke ENT History: Cataracts Cardiac History: Hypertension Respiratory History: CHF, COPD, Sleep Apnea, Other Endocrine Medical History: Diabetes Type II Musculoskeletal History: Arthritis GI Medical History: Diverticulitis, Irritable Bowel History: No Pertinent History, Renal Disease Psycho-Social History: No Pertinent History Female Reproductive Disorders: No Pertinent History, Other Other Medical History: pt family states pt noncompliant with cpap, ovarian cysts - Past Surgical History Past Surgical History: Yes Neuro Surgical History: No Pertinent History Cardiac: No Pertinent History, Internal Defibrillator, Pacemaker Respiratory: No Pertinent History Gastrointestinal: No Pertinent History Genitourinary: Other Musculoskeletal: No Pertinent History Female Surgical History: Tubal Ligation Other Surgical History: ear surgery, cataract surgery, bladder tuck,lasik surgery. Kidney removed - Social History Smoking Status: Former smoker How long have you smoked: 50 Exposure to second hand smoke: No Drug Use: none Patient Lives Alone: No - Nursing Vital Signs Nursing Vital Signs: Initial Vital Signs Temperature 96.9 F 03/22/21 00:12 Pulse Rate 79 03/22/21 00:12 Respiratory Rate 32 H 03/22/21 00:12 Blood Pressure 135/69 03/22/21 00:12 O2 Sat by Pulse Oximetry 88 L 03/22/21 00:12 Pain Scale Pain Intensity 0 - Physical Exam General Appearance: moderate distress, alert Eye Exam: PERRL/EOMI Ears, Nose, Throat Exam: nasal congestion, pharyngeal erythema Neck Exam: normal inspection, full range of motion Respiratory Exam: respiratory distress, diminished breath sounds, accessory muscle use, crackles/rales, rhonchi, wheezing Cardiovascular/Chest Exam: normal heart sounds, regular rate/rhythm Abdominal/Gastrointestinal Exam: soft, normal bowel sounds Extremity Exam: non-tender, normal range of motion Neurologic Exam: alert, oriented x 3, cooperative Skin Exam: normal color SpO2 Interpretation: hypoxic, O2 applied SpO2: 88 O2 Delivery: Non-rebreather Procedures - Central Line Time Of Procedure: 01:42 Timeout: Performed Central Line Lumen: triple Lumen Size: 7 [place] Central Line Procedure: chlorahexadine prep, sterile drapes applied, sterile dressing applied, Aseptic Technique, Seldinger Technique Central Line Postion: femoral (R) Anesthesia: 1% Lidocaine cc's of anesthesia: 5 Ultrasound Guided Placement: Yes Complications: none Central Line Post Position: sutured, good blood return - Course EKG Interpreted by Me: RATE (65), Sinus Rhythm, NORMAL AXIS, NORMAL INTERVALS, Non-specific ST Changes Ordered Tests: Medication Summary Discontinued Medications Generic Name Dose Route Start Last Admin Trade Name Michelle PRN Reason Stop Dose Admin Acetaminophen 650 mg 03/22/21 07:07 Tylenol 325 Mg PO 04/21/21 07:06 Q4H PRN PRN PAIN AND/OR FEVER Albuterol Sulfate 2.5 mg 03/22/21 12:20 Proventil 2.5 Mg/3 Ml Neb IH 04/21/21 12:19 Q6H PRN PRN WHEEZING/COUGH Albuterol/Ipratropium 3 ml 03/22/21 07:07 03/25/21 07:28 Duoneb 0.5-3 Mg/3 Ml Neb IH 04/21/21 07:06 3 ml Q6HRT ROSARIO Administration Amlodipine Besylate 5 mg 03/22/21 15:00 03/25/21 15:16 Norvasc 5 Mg PO 04/21/21 14:59 5 mg DAILY ROSARIO Administration Apixaban 2.5 mg 03/22/21 22:00 03/25/21 15:28 Eliquis 2.5 Mg Tablet PO 04/21/21 21:59 2.5 mg BID ROSARIO Administration Aspirin 81 mg 03/22/21 14:30 03/25/21 15:16 Ecotrin 81 Mg PO 04/21/21 14:29 81 mg DAILY ROSARIO Administration Bumetanide 1 mg 03/22/21 14:15 03/25/21 15:16 Bumex 1 Mg PO 04/21/21 14:14 1 mg DAILY ROSARIO Administration Cholecalciferol 10,000 unit 03/28/21 10:00 Vitamin D PO 04/27/21 09:59 WEEKLY ROSARIO Methylprednisolone Sodium 0 mg 03/22/21 00:12 03/22/21 02:12 Succinate 125 mg/ Sterile IV 03/22/21 00:13 125 mg Water 2 ml STAT ONE Administration Methylprednisolone Sodium 0 mg 03/22/21 07:07 03/23/21 05:47 Succinate 60 mg/ Sterile Water IV 04/21/21 07:06 60 mg 2 ml Q6HT ROSARIO Administration Donepezil HCl 5 mg 03/22/21 14:15 03/25/21 15:15 Aricept 10 Mg PO 04/21/21 14:14 5 mg DAILY ROSARIO Administration Escitalopram Oxalate 10 mg 03/22/21 14:15 03/25/21 15:15 Lexapro 10 Mg PO 04/21/21 14:14 10 mg DAILY ROSARIO Administration Folic Acid 1 mg 03/23/21 10:00 03/25/21 15:15 Folate 1 Mg PO 04/22/21 09:59 1 mg DAILY ROSARIO Administration Heparin Sodium (Beef Lung) Confirm 03/22/21 08:03 Heparin Lock Flush 100 Units/Ml 5ml Syringe Administered 03/22/21 08:04 Dose 500 units .ROUTE .STK-MED ONE Heparin Sodium (Beef Lung) 0 units 03/22/21 10:00 03/22/21 17:16 Heparin Lock Flush 100 Units/Ml 5ml Syringe IV 04/21/21 09:59 500 units UD PRN Administration Ceftriaxone Sodium/Dextrose 2 g in 50 mls @ 100 mls/hr 03/22/21 00:13 03/22/21 03:25 Rocephin 2 Gm-D5w 50ml Bag IV 03/22/21 00:42 Infused STAT STA Infusion Azithromycin 500 mg in 250 mls @ 250 mls/hr 03/22/21 00:13 03/22/21 03:24 Zithromax 500 Mg/ 250 Ml Nacl Premix IV 03/22/21 01:12 Infused STAT STA Infusion Azithromycin Confirm 03/22/21 02:10 Zithromax 500 Mg/ 250 Ml Nacl Premix Administered 03/22/21 02:11 Dose 500 mg in 250 mls @ ud IV .STK-MED ONE Azithromycin 500 mg in 250 mls @ 250 mls/hr 03/22/21 22:00 03/24/21 23:34 Zithromax 500 Mg/ 250 Ml Nacl Premix IV 04/21/21 21:59 250 mls/hr Q24H22 ROSARIO Administration Ceftriaxone Sodium/Dextrose 1 g in 50 mls @ 100 mls/hr 03/22/21 22:00 03/24/21 22:15 Rocephin 1 Gm-D5w 50 Ml Bag IV 03/26/21 21:59 100 mls/hr Q24H22 ROSARIO Administration Sodium Chloride 1,000 mls @ 100 mls/hr 03/23/21 12:00 03/25/21 05:33 Sodium Chloride 0.9% 1000 Ml IV 04/22/21 11:59 100 mls/hr .Q10H ROSARIO Administration Insulin Glargine 32 unit 03/22/21 14:15 03/25/21 15:27 Lantus Insulin SQ 04/21/21 14:14 32 unit BID ROSARIO Administration Insulin Human Lispro 0 unit 03/22/21 07:07 03/24/21 22:08 Humalog SQ 04/21/21 07:06 11 unit UD PRN Administration HYPERGLYCEMIA Insulin Human Lispro 10 unit 03/22/21 17:00 03/25/21 14:51 Humalog SQ 04/21/21 16:59 Not Given TIDWM ROSARIO Losartan Potassium 100 mg 03/22/21 14:15 03/25/21 15:16 Cozaar 50 Mg PO 04/21/21 14:14 100 mg DAILY ROSARIO Administration Memantine 5 mg 03/22/21 22:00 03/24/21 22:06 Namenda 5 Mg PO 04/21/21 21:59 5 mg QHS ROSARIO Administration Methylprednisolone Sodium Succinate Confirm 03/22/21 02:09 Solu-Medrol Administered 03/22/21 02:10 Dose 125 mg .ROUTE .STK-MED ONE Nitroglycerin 0.4 mg 03/22/21 13:28 Nitrostat 0.4 Mg Tablet SL 04/21/21 13:27 UD PRN CHEST PAIN Olanzapine 10 mg 03/22/21 22:00 03/24/21 22:06 Zyprexa 5mg Tablet PO 04/21/21 21:59 10 mg HS ROSARIO Administration Pantoprazole Sodium 40 mg 03/22/21 10:00 03/22/21 11:38 Protonix 40 Mg Iv IV 04/21/21 09:59 40 mg Q24H10 ROSARIO Administration Pantoprazole Sodium 40 mg 03/23/21 10:00 03/25/21 15:15 Protonix 40mg Tablet PO 04/22/21 09:59 40 mg DAILY ROSARIO Administration Prednisone 60 mg 03/23/21 12:00 03/25/21 15:15 Deltasone 20 Mg PO 04/22/21 11:59 60 mg DAILY ROSARIO Administration Fluticasone/Salmeterol 2 puff 03/23/21 19:00 03/24/21 22:02 Advair Hfa 115/21 Common Canister* IH 04/22/21 18:59 2 puff BIDRT ROSARIO Administration Simvastatin 40 mg 03/22/21 22:00 03/24/21 22:06 Zocor 20mg PO 04/21/21 21:59 40 mg HS ROSARIO Administration Sodium Chloride 10 ml 03/22/21 10:00 03/23/21 05:47 Sodium Chloride 0.9% 10 Ml Flush Syringe IV 04/21/21 09:59 10 ml PRN PRN Administration Sterile Water Confirm 03/22/21 02:09 Sterile H2o 10 Ml Administered 03/22/21 02:10 Dose 10 ml IJ .STK-MED ONE Lab/Rad Data: Laboratory Result Diagrams 03/22/21 01:45 03/22/21 01:45 Laboratory Results 03/22/21 03/22/21 03/22/21 Range/Units 17:06 14:30 12:22 WBC (4.0-10.5) K/mm3 RBC (4.1-5.4) M/mm3 Hgb (12.0-16.0) gm/dl Hct (35-47) % MCV (78-100) fl MCH (26-32) pg MCHC (32-36) g/dl RDW (11.5-14.0) % Plt Count (150-450) K/mm3 MPV (7.5-11.0) fl Gran % (36.0-66.0) % Eos # (Auto) (0-0.5) Absolute Lymphs (auto) (1.0-4.6) Absolute Monos (auto) (0.0-1.3) Lymphocytes % (24.0-44.0) % Monocytes % (0.0-12.0) % Eosinophils % (0.00-5.0) % Basophils % (0.0-0.4) % Absolute Granulocytes (1.4-6.9) Basophils # (0-0.4) Puncture Site pCO2 (35-45) mmHg pO2 (75-100) mmHg Base Excess (-2.0-2.0) O2 Saturation (94-100) g/dF ABG pH (7.35-7.45) ABG HCO3 (22-28) ABG O2 Sat (Measured) (95-100) % Emmanuel Test A-a Gradient a/A Ratio Hemoglobin Carboxyhemoglobin (0.0-6.9) % THgb Methemoglobin (1.4-1.5) % Potassium (3.5-5.1) Temperature C POC O2 Flow Rate % Vent Mode Sodium (137-145) mmol/L Chloride (98-107) mmol/L Carbon Dioxide (22-30) mmol/L Anion Gap (5-15) MEQ/L BUN (7-17) mg/dL Creatinine (0.52-1.04) mg/dL Estimated GFR ML/MIN Glucose (74-106) mg/dL POC Glucometer 284 H 327 H (74 to 106) mg/dL Hemoglobin A1c (4.5-6.0) % Lactic Acid (0.4-2.0) Calcium (8.4-10.2) mg/dL Magnesium (1.6-2.3) mg/dL Total Bilirubin (0.2-1.3) mg/dL AST (14-36) U/L ALT (0-35) U/L Alkaline Phosphatase (38-126) U/L Troponin I < 0.012 (0.000-0.034) ng/mL NT-Pro-B Natriuret Pep (0-1800) pg/mL Serum Total Protein (6.3-8.2) g/dL Albumin (3.5-5.0) g/dL Urine Color (YELLOW) Urine Appearance (CLEAR) Urine pH (5-6) Ur Specific [place] (1.005-1.025) Urine Protein (Negative) Urine Ketones (NEGATIVE) Urine Blood (0-5) Wilbert/ul Urine Nitrite (NEGATIVE) Urine Bilirubin (NEGATIVE) Urine Urobilinogen (0-1) mg/dL Ur Leukocyte Esterase (NEGATIVE) Urine WBC (Auto) (0-5) /HPF Urine RBC (Auto) (0-2) /HPF U Epithel Cells (Auto) (FEW) /HPF Urine Culture Reflexed (NO) Urine Glucose (NEGATIVE) mg/dL SARS-CoV-2 (PCR) (NEGATIVE) 09/11/21 09/11/21 09/11/21 Range/Units 11:35 08:39 08:15 WBC (4.0-10.5) K/mm3 RBC (4.1-5.4) M/mm3 Hgb (12.0-16.0) gm/dl Hct (35-47) % MCV (78-100) fl MCH (26-32) pg MCHC (32-36) g/dl RDW (11.5-14.0) % Plt Count (150-450) K/mm3 MPV (7.5-11.0) fl Gran % (36.0-66.0) % Eos # (Auto) (0-0.5) Absolute Lymphs (auto) (1.0-4.6) Absolute Monos (auto) (0.0-1.3) Lymphocytes % (24.0-44.0) % Monocytes % (0.0-12.0) % Eosinophils % (0.00-5.0) % Basophils % (0.0-0.4) % Absolute Granulocytes (1.4-6.9) Basophils # (0-0.4) Puncture Site pCO2 (35-45) mmHg pO2 (75-100) mmHg Base Excess (-2.0-2.0) O2 Saturation (94-100) g/dF ABG pH (7.35-7.45) ABG HCO3 (22-28) ABG O2 Sat (Measured) (95-100) % Emmanuel Test A-a Gradient a/A Ratio Hemoglobin Carboxyhemoglobin (0.0-6.9) % THgb Methemoglobin (1.4-1.5) % Potassium (3.5-5.1) Temperature C POC O2 Flow Rate % Vent Mode Sodium (137-145) mmol/L Chloride (98-107) mmol/L Carbon Dioxide (22-30) mmol/L Anion Gap (5-15) MEQ/L BUN (7-17) mg/dL Creatinine (0.52-1.04) mg/dL Estimated GFR ML/MIN Glucose (74-106) mg/dL POC Glucometer 296 H (74 to 106) mg/dL Hemoglobin A1c (4.5-6.0) % Lactic Acid (0.4-2.0) Calcium (8.4-10.2) mg/dL Magnesium (1.6-2.3) mg/dL Total Bilirubin (0.2-1.3) mg/dL AST (14-36) U/L ALT (0-35) U/L Alkaline Phosphatase (38-126) U/L Troponin I < 0.012 < 0.012 (0.000-0.034) ng/mL NT-Pro-B Natriuret Pep (0-1800) pg/mL Serum Total Protein (6.3-8.2) g/dL Albumin (3.5-5.0) g/dL Urine Color (YELLOW) Urine Appearance (CLEAR) Urine pH (5-6) Ur Specific [place] (1.005-1.025) Urine Protein (Negative) Urine Ketones (NEGATIVE) Urine Blood (0-5) Wilbert/ul Urine Nitrite (NEGATIVE) Urine Bilirubin (NEGATIVE) Urine Urobilinogen (0-1) mg/dL Ur Leukocyte Esterase (NEGATIVE) Urine WBC (Auto) (0-5) /HPF Urine RBC (Auto) (0-2) /HPF U Epithel Cells (Auto) (FEW) /HPF Urine Culture Reflexed (NO) Urine Glucose (NEGATIVE) mg/dL SARS-CoV-2 (PCR) (NEGATIVE) 03/22/21 03/22/21 03/22/21 Range/Units 04:54 03:15 02:03 WBC (4.0-10.5) K/mm3 RBC (4.1-5.4) M/mm3 Hgb (12.0-16.0) gm/dl Hct (35-47) % MCV (78-100) fl MCH (26-32) pg MCHC (32-36) g/dl RDW (11.5-14.0) % Plt Count (150-450) K/mm3 MPV (7.5-11.0) fl Gran % (36.0-66.0) % Eos # (Auto) (0-0.5) Absolute Lymphs (auto) (1.0-4.6) Absolute Monos (auto) (0.0-1.3) Lymphocytes % (24.0-44.0) % Monocytes % (0.0-12.0) % Eosinophils % (0.00-5.0) % Basophils % (0.0-0.4) % Absolute Granulocytes (1.4-6.9) Basophils # (0-0.4) Puncture Site pCO2 (35-45) mmHg pO2 (75-100) mmHg Base Excess (-2.0-2.0) O2 Saturation (94-100) g/dF ABG pH (7.35-7.45) ABG HCO3 (22-28) ABG O2 Sat (Measured) (95-100) % Emmanuel Test A-a Gradient a/A Ratio Hemoglobin Carboxyhemoglobin (0.0-6.9) % THgb Methemoglobin (1.4-1.5) % Potassium (3.5-5.1) Temperature C POC O2 Flow Rate % Vent Mode Sodium (137-145) mmol/L Chloride (98-107) mmol/L Carbon Dioxide (22-30) mmol/L Anion Gap (5-15) MEQ/L BUN (7-17) mg/dL Creatinine (0.52-1.04) mg/dL Estimated GFR ML/MIN Glucose (74-106) mg/dL POC Glucometer (74 to 106) mg/dL Hemoglobin A1c (4.5-6.0) % Lactic Acid (0.4-2.0) Calcium (8.4-10.2) mg/dL Magnesium (1.6-2.3) mg/dL Total Bilirubin (0.2-1.3) mg/dL AST (14-36) U/L ALT (0-35) U/L Alkaline Phosphatase (38-126) U/L Troponin I < 0.012 (0.000-0.034) ng/mL NT-Pro-B Natriuret Pep (0-1800) pg/mL Serum Total Protein (6.3-8.2) g/dL Albumin (3.5-5.0) g/dL Urine Color STRAW (YELLOW) Urine Appearance CLEAR (CLEAR) Urine pH 5.0 (5-6) Ur Specific [place] 1.010 (1.005-1.025) Urine Protein NEGATIVE (Negative) Urine Ketones NEGATIVE (NEGATIVE) Urine Blood NEGATIVE (0-5) Wilbert/ul Urine Nitrite NEGATIVE (NEGATIVE) Urine Bilirubin NEGATIVE (NEGATIVE) Urine Urobilinogen NEGATIVE (0-1) mg/dL Ur Leukocyte Esterase NEGATIVE (NEGATIVE) Urine WBC (Auto) NONE (0-5) /HPF Urine RBC (Auto) 0-2 (0-2) /HPF U Epithel Cells (Auto) NONE (FEW) /HPF Urine Culture Reflexed NO (NO) Urine Glucose NEGATIVE (NEGATIVE) mg/dL SARS-CoV-2 (PCR) NEGATIVE (NEGATIVE) 03/22/21 03/22/21 03/22/21 Range/Units 01:45 01:45 01:45 WBC 8.8 (4.0-10.5) K/mm3 RBC 4.24 (4.1-5.4) M/mm3 Hgb 11.7 L (12.0-16.0) gm/dl Hct 39.4 (35-47) % MCV 92.9 (78-100) fl MCH 27.6 (26-32) pg MCHC 29.7 L (32-36) g/dl RDW 16.8 H (11.5-14.0) % Plt Count 230 (150-450) K/mm3 MPV 9.7 (7.5-11.0) fl Gran % 65.8 (36.0-66.0) % Eos # (Auto) 0.54 H (0-0.5) Absolute Lymphs (auto) 1.58 (1.0-4.6) Absolute Monos (auto) 0.84 (0.0-1.3) Lymphocytes % 17.9 L (24.0-44.0) % Monocytes % 9.5 (0.0-12.0) % Eosinophils % 6.1 H (0.00-5.0) % Basophils % 0.7 (0.0-0.4) % Absolute Granulocytes 5.82 (1.4-6.9) Basophils # 0.06 (0-0.4) Puncture Site pCO2 (35-45) mmHg pO2 (75-100) mmHg Base Excess (-2.0-2.0) O2 Saturation (94-100) g/dF ABG pH (7.35-7.45) ABG HCO3 (22-28) ABG O2 Sat (Measured) (95-100) % Emmanuel Test A-a Gradient a/A Ratio Hemoglobin Carboxyhemoglobin (0.0-6.9) % THgb Methemoglobin (1.4-1.5) % Potassium 4.2 (3.5-5.1) Temperature C POC O2 Flow Rate % Vent Mode Sodium 148 H (137-145) mmol/L Chloride 105 (98-107) mmol/L Carbon Dioxide 27 (22-30) mmol/L Anion Gap 20.5 H (5-15) MEQ/L BUN 30 H (7-17) mg/dL Creatinine 2.14 H (0.52-1.04) mg/dL Estimated GFR 23.4 ML/MIN Glucose 120 H (74-106) mg/dL POC Glucometer (74 to 106) mg/dL Hemoglobin A1c (4.5-6.0) % Lactic Acid (0.4-2.0) Calcium 9.4 (8.4-10.2) mg/dL Magnesium 2.1 (1.6-2.3) mg/dL Total Bilirubin 0.40 (0.2-1.3) mg/dL AST 25 (14-36) U/L ALT 18 (0-35) U/L Alkaline Phosphatase 97 (38-126) U/L Troponin I < 0.012 (0.000-0.034) ng/mL NT-Pro-B Natriuret Pep 277 (0-1800) pg/mL Serum Total Protein 7.5 (6.3-8.2) g/dL Albumin 4.1 (3.5-5.0) g/dL Urine Color (YELLOW) Urine Appearance (CLEAR) Urine pH (5-6) Ur Specific [place] (1.005-1.025) Urine Protein (Negative) Urine Ketones (NEGATIVE) Urine Blood (0-5) Wilbert/ul Urine Nitrite (NEGATIVE) Urine Bilirubin (NEGATIVE) Urine Urobilinogen (0-1) mg/dL Ur Leukocyte Esterase (NEGATIVE) Urine WBC (Auto) (0-5) /HPF Urine RBC (Auto) (0-2) /HPF U Epithel Cells (Auto) (FEW) /HPF Urine Culture Reflexed (NO) Urine Glucose (NEGATIVE) mg/dL SARS-CoV-2 (PCR) (NEGATIVE) 03/22/21 03/22/21 Range/Units 00:05 00:05 WBC (4.0-10.5) K/mm3 RBC (4.1-5.4) M/mm3 Hgb (12.0-16.0) gm/dl Hct (35-47) % MCV (78-100) fl MCH (26-32) pg MCHC (32-36) g/dl RDW (11.5-14.0) % Plt Count (150-450) K/mm3 MPV (7.5-11.0) fl Gran % (36.0-66.0) % Eos # (Auto) (0-0.5) Absolute Lymphs (auto) (1.0-4.6) Absolute Monos (auto) (0.0-1.3) Lymphocytes % (24.0-44.0) % Monocytes % (0.0-12.0) % Eosinophils % (0.00-5.0) % Basophils % (0.0-0.4) % Absolute Granulocytes (1.4-6.9) Basophils # (0-0.4) Puncture Site RIGHT RADIAL pCO2 33 L (35-45) mmHg pO2 166 H* (75-100) mmHg Base Excess 2.2 H (-2.0-2.0) O2 Saturation 97.2 (94-100) g/dF ABG pH 7.49 H (7.35-7.45) ABG HCO3 25.1 (22-28) ABG O2 Sat (Measured) 99.4 (95-100) % Emmanuel Test YES A-a Gradient 221 a/A Ratio 0.43 Hemoglobin 12.2 Carboxyhemoglobin 1.0 (0.0-6.9) % THgb Methemoglobin 1.1 L (1.4-1.5) % Potassium 4.5 (3.5-5.1) Temperature 37.0 C POC O2 Flow Rate 60 % Vent Mode BiPAP Sodium (137-145) mmol/L Chloride (98-107) mmol/L Carbon Dioxide (22-30) mmol/L Anion Gap (5-15) MEQ/L BUN (7-17) mg/dL Creatinine (0.52-1.04) mg/dL Estimated GFR ML/MIN Glucose (74-106) mg/dL POC Glucometer (74 to 106) mg/dL Hemoglobin A1c 6.19 H (4.5-6.0) % Lactic Acid 1.6 (0.4-2.0) Calcium (8.4-10.2) mg/dL Magnesium (1.6-2.3) mg/dL Total Bilirubin (0.2-1.3) mg/dL AST (14-36) U/L ALT (0-35) U/L Alkaline Phosphatase (38-126) U/L Troponin I (0.000-0.034) ng/mL NT-Pro-B Natriuret Pep (0-1800) pg/mL Serum Total Protein (6.3-8.2) g/dL Albumin (3.5-5.0) g/dL Urine Color (YELLOW) Urine Appearance (CLEAR) Urine pH (5-6) Ur Specific [place] (1.005-1.025) Urine Protein (Negative) Urine Ketones (NEGATIVE) Urine Blood (0-5) Wilbert/ul Urine Nitrite (NEGATIVE) Urine Bilirubin (NEGATIVE) Urine Urobilinogen (0-1) mg/dL Ur Leukocyte Esterase (NEGATIVE) Urine WBC (Auto) (0-5) /HPF Urine RBC (Auto) (0-2) /HPF U Epithel Cells (Auto) (FEW) /HPF Urine Culture Reflexed (NO) Urine Glucose (NEGATIVE) mg/dL SARS-CoV-2 (PCR) (NEGATIVE) - Progress Progress: re-examined Air Movement: fair Progress Note: 03/22/21 00:52 She is given Solu-Medrol and placed on BiPAP, x-ray shows bilateral pneumonia, started on antibiotics. 03/22/21 04:04 Patient is initially placed on BiPAP and she started to feel much better. She is removed from BiPAP and currently on 3 L are maintaining around 93%, not in any distress. Central line is placed. Discussed with Dr. Neal and patient is accepted for admission. Blood Culture(s) Obtained: Yes Antibiotics given: Yes Discussed with : Bhavani Will see patient in: hospital (full admit) Counseled pt/family regarding: lab results, diagnosis, rad results - Departure Departure Disposition: Observation Clinical Impression: Respiratory failure Qualifiers: Chronicity: acute Respiratory failure complication: hypoxia Qualified Code(s): J96.01 - Acute respiratory failure with hypoxia Bilateral pneumonia Qualifiers: Pneumonia type: due to unspecified organism Lung location: unspecified part of lung Qualified Code(s): J18.9 - Pneumonia, unspecified organism Condition: Stable Critical Care Time: Yes Critical Care Time(excluding separately billable procedures): Critical 30-74 mins
[2021-03-22 01:10] LABS: A-aADO2 221; ABG HEMOGLOBIN 12.2; ABG POTASSIUM 4.5 (3.5-5.1); ABG SITE RIGHT RADIAL; ALLEN TEST OK? YES; ARTERIAL BLD GAS O2 SATURATION 99.4 % (95-100); ARTERIAL BLOOD GAS BASE EXCESS 2.2 (-2.0-2.0); ARTERIAL BLOOD GAS FIO2 60 %; ARTERIAL BLOOD GAS PCO2 33 mmHg (35-45); ARTERIAL BLOOD GAS PO2 166 mmHg (75-100); ARTERIAL BLOOD GAS VENT MODE BiPAP; ARTERIAL BLOOD GAS pH 7.49 (7.35-7.45); HCO3- 25.1 (22-28); HGB O2 SAT 97.2 g/dF (94-100); Lactic Acid 1.6 (0.4-2.0); Methhemoglobin 1.1 % (1.4-1.5)
[2021-03-22 01:59] LABS: Absolute Neutrophil Ct (ANC) 5.82 (1.4-6.9); BASOPHIL % 0.7 % (0.0-0.4); Basophil (Absolute #) 0.06 (0-0.4); Eosinophil % 6.1 % (0.00-5.0); Eosinophil (Absolute #) 0.54 (0-0.5); Hematocrit 39.4 % (35-47); Hemoglobin 11.7 gm/dl (12.0-16.0); Lymphocyte (Absolute #) 1.58 (1.0-4.6); Lymphocytes % 17.9 % (24.0-44.0); Mean Cell Volume 92.9 fl (78-100); Mean Corpuscular Hemoglobin 27.6 pg (26-32); Mean Corpuscular Hgb Concent. 29.7 g/dl (32-36); Mean Platelet Volume 9.7 fl (7.5-11.0); Monocyte (Absolute #) 0.84 (0.0-1.3); Monocytes % 9.5 % (0.0-12.0); Neutrophil % 65.8 % (36.0-66.0); Platelet Count 230 K/mm3 (150-450); Red Blood Count 4.24 M/mm3 (4.1-5.4); Red Cell Distribution Width 16.8 % (11.5-14.0); White Blood Count 8.8 K/mm3 (4.0-10.5)
[2021-03-22] MEDS ORDERED: solu-MEDROL ONE (02:09)
[2021-03-22] MEDS ORDERED: Sterile H2O 10 ml IJ ONE (02:09)
[2021-03-22] MEDS ORDERED: Zithromax 500 MG/ 250 ML NaCl Premix 500 MG/250 ML IVPB IV ONE (02:10)
[2021-03-22 02:20] LABS: ALBUMIN 4.1 g/dL (3.5-5.0); ANION GAP 20.5 MEQ/L (5-15); BILIRUBIN,TOTAL 0.4 mg/dL (0.2-1.3); Calcium 9.4 mg/dL (8.4-10.2); Creatinine 1 2.14 mg/dL (0.52-1.04); EST GLOMERULAR FILTRATION RATE 23.4 ML/MIN; MAGNESIUM 2.1 mg/dL (1.6-2.3); Potassium 4.2 mmol/L (3.5-5.1); Total Protein 7.5 g/dL (6.3-8.2)
[2021-03-22 03:13] LABS: Appearance CLEAR (CLEAR); Bilirubin NEGATIVE (NEGATIVE); Blood NEGATIVE Ery/ul (0-5); Glucose NEGATIVE (NEGATIVE); Ketones NEGATIVE (NEGATIVE); Leukocyte Esterase NEGATIVE (NEGATIVE); Nitrite NEGATIVE (NEGATIVE); Protein,Urine Dip NEGATIVE (Negative); RBC 0-2 /HPF (0-2); Urobilinogen NEGATIVE mg/dL (0-1)
[2021-03-22] MEDS ORDERED: TYLENOL 325 MG PO PRN (07:07)
--- NOTE | 2021-03-22 07:35 | XRAY ---
Indication: Short of breath. Comparison: September 04, 2020. Portable chest again demonstrates bibasilar infiltrate/atelectasis, borderline cardiomegaly with left pacemaker, arteriosclerotic/tortuous descending aorta, and osteopenia. No new cardiopulmonary abnormalities.
[2021-03-22] MEDS: solu-MEDROL 60 MG, Sterile H2O 10 ml 2 ML IV SCH ×6 (08:27→17:15)
[2021-03-22] MEDS: HUMALOG SQ PRN ×4 (08:49→22:25)
[2021-03-22] MEDS ORDERED: PROTONIX 40 MG IV IV SCH (10:00)
[2021-03-22] MEDS: DUONEB 0.5-3 MG/3 ml Neb IH SCH ×4 (11:32→23:29)
[2021-03-22] MEDS ORDERED: PROVENTIL 2.5 MG/3 ML NEB IH PRN (12:20)
[2021-03-22] MEDS ORDERED: Nitrostat 0.4 MG Tablet SL PRN (13:28)
[2021-03-22] MEDS ORDERED: CHOLECALCIFEROL 10000 UNIT PO SCH (13:30)
[2021-03-22] MEDS: Aricept 10 MG PO SCH (14:22)
[2021-03-22] MEDS: BUMEX 1 MG PO SCH (14:23)
[2021-03-22] MEDS: Lantus Insulin SQ SCH ×2 (14:23→22:23)
[2021-03-22] MEDS: NORVASC 5 MG PO SCH (14:24)
[2021-03-22] MEDS: ECOTRIN 81 MG PO SCH (14:24)
[2021-03-22] MEDS: Lexapro 10 MG PO SCH (14:24)
[2021-03-22] MEDS: Cozaar 50 MG PO SCH (15:47)
[2021-03-22] MEDS ORDERED: NON-FORMULARY ITEM (Insulin Lispro 10 UNIT) SQ SCH (17:00)
[2021-03-22] MEDS: HUMALOG SQ SCH (17:12)
--- NOTE | 2021-03-22 20:01 | PCM.HP ---
History of Present Illness - Chief Complaint Chief Complaint: PNEUMONIA, Hypoxia, COPD exacerbation Date: 03/22/21 History of Present Illness: is a 81 year old female. Was brought to ER after family called EMS unable to get her oxygen level up, pt. is on chronic home oxygen at 2 L and found to be less mentally alert and family noted oxygen at 75%, turned up oxygen to 15L and pt. only increased to 85%. This prompted the family to call ems. Pt. was given nebs and oxygen, en route and briefly required bipap, before weaning to NC at 3 L with 93% - Review of Systems Constitutional: No Fever, No Chills Eyes: No Symptoms Ears, Nose, & Throat: No Symptoms Respiratory: Cough, Short Of Breath, Wheezing Cardiac: No Chest Pain, No Edema, No Syncope Abdominal/Gastrointestinal: No Abdominal Pain, No Nausea, No Vomiting, No Diarrhea Genitourinary Symptoms: No Dysuria Musculoskeletal: No Back Pain, No Neck Pain Skin: No Rash Neurological: No Dizziness, No Focal Weakness, No Sensory Changes Psychological: No Symptoms Endocrine: No Symptoms Hematologic/Lymphatic: No Symptoms Immunological/Allergic: No Symptoms Medications & Allergies Home Medications: Home Medication List Amlodipine Besylate 5 mg [Norvasc 5 mg] 5 mg PO DAILY 02/08/18 [History Confirmed 03/22/21] Apixaban [Eliquis 5 mg Tablet] 2.5 mg PO BID 02/08/18 [History Confirmed 03/22/21] Atorvastatin Calcium 40 mg PO HS 02/08/18 [History Confirmed 03/22/21] Bumetanide 1 mg [Bumex 1 mg] 1 mg PO DAILY 02/08/18 [History Confirmed 03/22/21] Donepezil HCl [Aricept] 5 mg PO DAILY 02/08/18 [History Confirmed 03/22/21] Folic Acid 1 mg [Folate 1 mg] 1 mg PO DAILY 02/08/18 [History Confirmed 03/22/21] Losartan Potassium [Cozaar] 100 mg PO DAILY 02/08/18 [History Confirmed 03/22/21] Memantine HCl 5 mg PO QHS 02/08/18 [History Confirmed 03/22/21] Nitroglycerin 0.4 mg Tablet [Nitrostat 0.4 MG Tablet] 1 tablet SL UD PRN 02/08/18 [History Confirmed 03/22/21] PANTOPRAZOLE 40 mg Tablet [Protonix 40MG Tablet] 40 mg PO DAILY 02/08/18 [History Confirmed 03/22/21] Olanzapine 10 mg PO HS 02/27/19 [History Confirmed 03/22/21] Insulin Glargine,Hum.rec.anlog [Lantus] 32 unit SQ BID 04/19/19 [History Confirmed 03/22/21] Aspirin 81 gm Chew [Baby Aspirin 81 mg Chew] 81 mg PO DAILY 08/30/19 [History Confirmed 03/22/21] Escitalopram Oxalate 10 mg [Lexapro 10 MG] 10 mg PO DAILY 08/30/19 [History Confirmed 03/22/21] Cholecalciferol (Vitamin D3) [Vitamin D3] 10,000 unit PO WEEKLY 08/31/19 [History Confirmed 03/22/21] Insulin Lispro [Humalog] 10 unit SQ TIDWM 08/31/19 [History Confirmed 03/22/21] Allergies/Adverse Reactions: Allergies Allergy/AdvReac Type Severity Reaction Status Date / Time carvedilol Allergy Verified 03/22/21 11:52 - Past Medical History Past Medical History: Yes Neurological History: Alzheimer's Disease, Dementia, Peripheral Neuropathy, Stroke ENT History: Cataracts Cardiac History: Aneurysm, Congestive Heart Failure, Hypertension Respiratory History: CHF, COPD, Sleep Apnea, Other Endocrine Medical History: Diabetes Type II Musculoskelatal History: Arthritis GI Medical History: Diverticulitis History: No Pertinent History, Renal Disease Pyscho-Social History: No Pertinent History Reproductive Disorders: No Pertinent History, Other Comment: ovarian cysts - Female History Are you now?: No - Past Surgical History Past Surgical History: Yes Neuro Surgical History: No Pertinent History Cardiac History: No Pertinent History, Internal Defibrillator, Pacemaker Respiratory Surgery: No Pertinent History GI Surgical History: No Pertinent History, Cholecystectomy Genitourinary Surgical Hx: Other Musculskeletal Surgical Hx: No Pertinent History Female Surgical History: Tubal Ligation Other Surgical History: ear surgery, cataract surgery, bladder tuck,lasik surgery. Kidney removed, TL - Social History Smoking Status: Former smoker How long have you smoked: 50 Exposure to second hand smoke: No Alcohol: None Drug Use: none - Physical Exam Vital Signs: Vital Signs - 24 hr Temp Pulse Resp BP Pulse Ox 03/22/21 19:17 95 03/22/21 17:44 74 18 95 03/22/21 16:00 97.9 F 72 20 130/60 94 L 03/22/21 12:00 98.7 F 69 19 120/58 93 L 03/22/21 11:43 76 22 91 L 03/22/21 08:00 98.3 F 64 16 135/64 96 03/22/21 06:11 60 21 125/63 96 03/22/21 05:29 60 20 118/63 96 03/22/21 05:00 60 118/63 96 03/22/21 04:35 88 L 03/22/21 04:17 60 26 H 112/60 96 03/22/21 03:05 68 119/66 97 03/22/21 02:03 68 138/83 95 03/22/21 01:23 78 26 H 135/69 97 03/22/21 00:12 96.9 F 79 32 H 135/69 88 L General Appearance: no apparent distress, alert, obese Neurologic Exam: alert, cooperative, 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, normal mood/affect Eye Exam: eyes nml inspection Ears, Nose, Throat Exam: normal ENT inspection, pharynx normal, moist mucous membranes Neck Exam: normal inspection, supple, No non-tender Respiratory Exam: diminished breath sounds, prolonged expirations Cardiovascular Exam: regular rate/rhythm, normal heart sounds Gastrointestinal/Abdomen Exam: soft, normal bowel sounds, No tenderness, No distention, No mass Pelvic Exam: not done Rectal Exam: deferred Back Exam: normal inspection Extremity Exam: normal inspection Skin Exam: normal color, warm, dry, No rash, No petechiae Lymphatic Exam: No adenopathy Results - Labs Lab/Micro Results: Lab Results-Last 24 Hours 03/22/21 03/22/21 03/22/21 Range/Units 00:05 00:05 01:45 WBC 8.8 (4.0-10.5) K/mm3 RBC 4.24 (4.1-5.4) M/mm3 Hgb 11.7 L (12.0-16.0) gm/dl Hct 39.4 (35-47) % MCV 92.9 (78-100) fl MCH 27.6 (26-32) pg MCHC 29.7 L (32-36) g/dl RDW 16.8 H (11.5-14.0) % Plt Count 230 (150-450) K/mm3 MPV 9.7 (7.5-11.0) fl Gran % 65.8 (36.0-66.0) % Eos # (Auto) 0.54 H (0-0.5) Absolute Lymphs (auto) 1.58 (1.0-4.6) Absolute Monos (auto) 0.84 (0.0-1.3) Lymphocytes % 17.9 L (24.0-44.0) % Monocytes % 9.5 (0.0-12.0) % Eosinophils % 6.1 H (0.00-5.0) % Basophils % 0.7 (0.0-0.4) % Absolute Granulocytes 5.82 (1.4-6.9) Basophils # 0.06 (0-0.4) Puncture Site RIGHT RADIAL pCO2 33 L (35-45) mmHg pO2 166 H* (75-100) mmHg Base Excess 2.2 H (-2.0-2.0) O2 Saturation 97.2 (94-100) g/dF ABG pH 7.49 H (7.35-7.45) ABG HCO3 25.1 (22-28) ABG O2 Sat (Measured) 99.4 (95-100) % Emmanuel Test YES A-a Gradient 221 a/A Ratio 0.43 Hemoglobin 12.2 Carboxyhemoglobin 1.0 (0.0-6.9) % THgb Methemoglobin 1.1 L (1.4-1.5) % Potassium 4.5 (3.5-5.1) Temperature 37.0 C POC O2 Flow Rate 60 % Vent Mode BiPAP Sodium (137-145) mmol/L Chloride (98-107) mmol/L Carbon Dioxide (22-30) mmol/L Anion Gap (5-15) MEQ/L BUN (7-17) mg/dL Creatinine (0.52-1.04) mg/dL Estimated GFR ML/MIN Glucose (74-106) mg/dL POC Glucometer (74 to 106) mg/dL Hemoglobin A1c 6.19 H (4.5-6.0) % Lactic Acid 1.6 (0.4-2.0) Calcium (8.4-10.2) mg/dL Magnesium (1.6-2.3) mg/dL Total Bilirubin (0.2-1.3) mg/dL AST (14-36) U/L ALT (0-35) U/L Alkaline Phosphatase (38-126) U/L Troponin I (0.000-0.034) ng/mL NT-Pro-B Natriuret Pep (0-1800) pg/mL Serum Total Protein (6.3-8.2) g/dL Albumin (3.5-5.0) g/dL Urine Color (YELLOW) Urine Appearance (CLEAR) Urine pH (5-6) Ur Specific [place] (1.005-1.025) Urine Protein (Negative) Urine Ketones (NEGATIVE) Urine Blood (0-5) Wilbert/ul Urine Nitrite (NEGATIVE) Urine Bilirubin (NEGATIVE) Urine Urobilinogen (0-1) mg/dL Ur Leukocyte Esterase (NEGATIVE) Urine WBC (Auto) (0-5) /HPF Urine RBC (Auto) (0-2) /HPF U Epithel Cells (Auto) (FEW) /HPF Urine Culture Reflexed (NO) Urine Glucose (NEGATIVE) mg/dL SARS-CoV-2 (PCR) (NEGATIVE) 03/22/21 03/22/21 03/22/21 Range/Units 01:45 01:45 02:03 WBC (4.0-10.5) K/mm3 RBC (4.1-5.4) M/mm3 Hgb (12.0-16.0) gm/dl Hct (35-47) % MCV (78-100) fl MCH (26-32) pg MCHC (32-36) g/dl RDW (11.5-14.0) % Plt Count (150-450) K/mm3 MPV (7.5-11.0) fl Gran % (36.0-66.0) % Eos # (Auto) (0-0.5) Absolute Lymphs (auto) (1.0-4.6) Absolute Monos (auto) (0.0-1.3) Lymphocytes % (24.0-44.0) % Monocytes % (0.0-12.0) % Eosinophils % (0.00-5.0) % Basophils % (0.0-0.4) % Absolute Granulocytes (1.4-6.9) Basophils # (0-0.4) Puncture Site pCO2 (35-45) mmHg pO2 (75-100) mmHg Base Excess (-2.0-2.0) O2 Saturation (94-100) g/dF ABG pH (7.35-7.45) ABG HCO3 (22-28) ABG O2 Sat (Measured) (95-100) % Emmanuel Test A-a Gradient a/A Ratio Hemoglobin Carboxyhemoglobin (0.0-6.9) % THgb Methemoglobin (1.4-1.5) % Potassium 4.2 (3.5-5.1) Temperature C POC O2 Flow Rate % Vent Mode Sodium 148 H (137-145) mmol/L Chloride 105 (98-107) mmol/L Carbon Dioxide 27 (22-30) mmol/L Anion Gap 20.5 H (5-15) MEQ/L BUN 30 H (7-17) mg/dL Creatinine 2.14 H (0.52-1.04) mg/dL Estimated GFR 23.4 ML/MIN Glucose 120 H (74-106) mg/dL POC Glucometer (74 to 106) mg/dL Hemoglobin A1c (4.5-6.0) % Lactic Acid (0.4-2.0) Calcium 9.4 (8.4-10.2) mg/dL Magnesium 2.1 (1.6-2.3) mg/dL Total Bilirubin 0.40 (0.2-1.3) mg/dL AST 25 (14-36) U/L ALT 18 (0-35) U/L Alkaline Phosphatase 97 (38-126) U/L Troponin I < 0.012 (0.000-0.034) ng/mL NT-Pro-B Natriuret Pep 277 (0-1800) pg/mL Serum Total Protein 7.5 (6.3-8.2) g/dL Albumin 4.1 (3.5-5.0) g/dL Urine Color STRAW (YELLOW) Urine Appearance CLEAR (CLEAR) Urine pH 5.0 (5-6) Ur Specific [place] 1.010 (1.005-1.025) Urine Protein NEGATIVE (Negative) Urine Ketones NEGATIVE (NEGATIVE) Urine Blood NEGATIVE (0-5) Wilbert/ul Urine Nitrite NEGATIVE (NEGATIVE) Urine Bilirubin NEGATIVE (NEGATIVE) Urine Urobilinogen NEGATIVE (0-1) mg/dL Ur Leukocyte Esterase NEGATIVE (NEGATIVE) Urine WBC (Auto) NONE (0-5) /HPF Urine RBC (Auto) 0-2 (0-2) /HPF U Epithel Cells (Auto) NONE (FEW) /HPF Urine Culture Reflexed NO (NO) Urine Glucose NEGATIVE (NEGATIVE) mg/dL SARS-CoV-2 (PCR) (NEGATIVE) 03/22/21 03/22/21 03/22/21 Range/Units 03:15 04:54 08:15 WBC (4.0-10.5) K/mm3 RBC (4.1-5.4) M/mm3 Hgb (12.0-16.0) gm/dl Hct (35-47) % MCV (78-100) fl MCH (26-32) pg MCHC (32-36) g/dl RDW (11.5-14.0) % Plt Count (150-450) K/mm3 MPV (7.5-11.0) fl Gran % (36.0-66.0) % Eos # (Auto) (0-0.5) Absolute Lymphs (auto) (1.0-4.6) Absolute Monos (auto) (0.0-1.3) Lymphocytes % (24.0-44.0) % Monocytes % (0.0-12.0) % Eosinophils % (0.00-5.0) % Basophils % (0.0-0.4) % Absolute Granulocytes (1.4-6.9) Basophils # (0-0.4) Puncture Site pCO2 (35-45) mmHg pO2 (75-100) mmHg Base Excess (-2.0-2.0) O2 Saturation (94-100) g/dF ABG pH (7.35-7.45) ABG HCO3 (22-28) ABG O2 Sat (Measured) (95-100) % Emmanuel Test A-a Gradient a/A Ratio Hemoglobin Carboxyhemoglobin (0.0-6.9) % THgb Methemoglobin (1.4-1.5) % Potassium (3.5-5.1) Temperature C POC O2 Flow Rate % Vent Mode Sodium (137-145) mmol/L Chloride (98-107) mmol/L Carbon Dioxide (22-30) mmol/L Anion Gap (5-15) MEQ/L BUN (7-17) mg/dL Creatinine (0.52-1.04) mg/dL Estimated GFR ML/MIN Glucose (74-106) mg/dL POC Glucometer (74 to 106) mg/dL Hemoglobin A1c (4.5-6.0) % Lactic Acid (0.4-2.0) Calcium (8.4-10.2) mg/dL Magnesium (1.6-2.3) mg/dL Total Bilirubin (0.2-1.3) mg/dL AST (14-36) U/L ALT (0-35) U/L Alkaline Phosphatase (38-126) U/L Troponin I < 0.012 < 0.012 (0.000-0.034) ng/mL NT-Pro-B Natriuret Pep (0-1800) pg/mL Serum Total Protein (6.3-8.2) g/dL Albumin (3.5-5.0) g/dL Urine Color (YELLOW) Urine Appearance (CLEAR) Urine pH (5-6) Ur Specific [place] (1.005-1.025) Urine Protein (Negative) Urine Ketones (NEGATIVE) Urine Blood (0-5) Wilbert/ul Urine Nitrite (NEGATIVE) Urine Bilirubin (NEGATIVE) Urine Urobilinogen (0-1) mg/dL Ur Leukocyte Esterase (NEGATIVE) Urine WBC (Auto) (0-5) /HPF Urine RBC (Auto) (0-2) /HPF U Epithel Cells (Auto) (FEW) /HPF Urine Culture Reflexed (NO) Urine Glucose (NEGATIVE) mg/dL SARS-CoV-2 (PCR) NEGATIVE (NEGATIVE) 03/22/21 03/22/21 03/22/21 Range/Units 08:39 11:35 12:22 WBC (4.0-10.5) K/mm3 RBC (4.1-5.4) M/mm3 Hgb (12.0-16.0) gm/dl Hct (35-47) % MCV (78-100) fl MCH (26-32) pg MCHC (32-36) g/dl RDW (11.5-14.0) % Plt Count (150-450) K/mm3 MPV (7.5-11.0) fl Gran % (36.0-66.0) % Eos # (Auto) (0-0.5) Absolute Lymphs (auto) (1.0-4.6) Absolute Monos (auto) (0.0-1.3) Lymphocytes % (24.0-44.0) % Monocytes % (0.0-12.0) % Eosinophils % (0.00-5.0) % Basophils % (0.0-0.4) % Absolute Granulocytes (1.4-6.9) Basophils # (0-0.4) Puncture Site pCO2 (35-45) mmHg pO2 (75-100) mmHg Base Excess (-2.0-2.0) O2 Saturation (94-100) g/dF ABG pH (7.35-7.45) ABG HCO3 (22-28) ABG O2 Sat (Measured) (95-100) % Emmanuel Test A-a Gradient a/A Ratio Hemoglobin Carboxyhemoglobin (0.0-6.9) % THgb Methemoglobin (1.4-1.5) % Potassium (3.5-5.1) Temperature C POC O2 Flow Rate % Vent Mode Sodium (137-145) mmol/L Chloride (98-107) mmol/L Carbon Dioxide (22-30) mmol/L Anion Gap (5-15) MEQ/L BUN (7-17) mg/dL Creatinine (0.52-1.04) mg/dL Estimated GFR ML/MIN Glucose (74-106) mg/dL POC Glucometer 296 H 327 H (74 to 106) mg/dL Hemoglobin A1c (4.5-6.0) % Lactic Acid (0.4-2.0) Calcium (8.4-10.2) mg/dL Magnesium (1.6-2.3) mg/dL Total Bilirubin (0.2-1.3) mg/dL AST (14-36) U/L ALT (0-35) U/L Alkaline Phosphatase (38-126) U/L Troponin I < 0.012 (0.000-0.034) ng/mL NT-Pro-B Natriuret Pep (0-1800) pg/mL Serum Total Protein (6.3-8.2) g/dL Albumin (3.5-5.0) g/dL Urine Color (YELLOW) Urine Appearance (CLEAR) Urine pH (5-6) Ur Specific [place] (1.005-1.025) Urine Protein (Negative) Urine Ketones (NEGATIVE) Urine Blood (0-5) Wilbert/ul Urine Nitrite (NEGATIVE) Urine Bilirubin (NEGATIVE) Urine Urobilinogen (0-1) mg/dL Ur Leukocyte Esterase (NEGATIVE) Urine WBC (Auto) (0-5) /HPF Urine RBC (Auto) (0-2) /HPF U Epithel Cells (Auto) (FEW) /HPF Urine Culture Reflexed (NO) Urine Glucose (NEGATIVE) mg/dL SARS-CoV-2 (PCR) (NEGATIVE) 03/22/21 03/22/21 Range/Units 14:30 17:06 WBC (4.0-10.5) K/mm3 RBC (4.1-5.4) M/mm3 Hgb (12.0-16.0) gm/dl Hct (35-47) % MCV (78-100) fl MCH (26-32) pg MCHC (32-36) g/dl RDW (11.5-14.0) % Plt Count (150-450) K/mm3 MPV (7.5-11.0) fl Gran % (36.0-66.0) % Eos # (Auto) (0-0.5) Absolute Lymphs (auto) (1.0-4.6) Absolute Monos (auto) (0.0-1.3) Lymphocytes % (24.0-44.0) % Monocytes % (0.0-12.0) % Eosinophils % (0.00-5.0) % Basophils % (0.0-0.4) % Absolute Granulocytes (1.4-6.9) Basophils # (0-0.4) Puncture Site pCO2 (35-45) mmHg pO2 (75-100) mmHg Base Excess (-2.0-2.0) O2 Saturation (94-100) g/dF ABG pH (7.35-7.45) ABG HCO3 (22-28) ABG O2 Sat (Measured) (95-100) % Emmanuel Test A-a Gradient a/A Ratio Hemoglobin Carboxyhemoglobin (0.0-6.9) % THgb Methemoglobin (1.4-1.5) % Potassium (3.5-5.1) Temperature C POC O2 Flow Rate % Vent Mode Sodium (137-145) mmol/L Chloride (98-107) mmol/L Carbon Dioxide (22-30) mmol/L Anion Gap (5-15) MEQ/L BUN (7-17) mg/dL Creatinine (0.52-1.04) mg/dL Estimated GFR ML/MIN Glucose (74-106) mg/dL POC Glucometer 284 H (74 to 106) mg/dL Hemoglobin A1c (4.5-6.0) % Lactic Acid (0.4-2.0) Calcium (8.4-10.2) mg/dL Magnesium (1.6-2.3) mg/dL Total Bilirubin (0.2-1.3) mg/dL AST (14-36) U/L ALT (0-35) U/L Alkaline Phosphatase (38-126) U/L Troponin I < 0.012 (0.000-0.034) ng/mL NT-Pro-B Natriuret Pep (0-1800) pg/mL Serum Total Protein (6.3-8.2) g/dL Albumin (3.5-5.0) g/dL Urine Color (YELLOW) Urine Appearance (CLEAR) Urine pH (5-6) Ur Specific [place] (1.005-1.025) Urine Protein (Negative) Urine Ketones (NEGATIVE) Urine Blood (0-5) Wilbert/ul Urine Nitrite (NEGATIVE) Urine Bilirubin (NEGATIVE) Urine Urobilinogen (0-1) mg/dL Ur Leukocyte Esterase (NEGATIVE) Urine WBC (Auto) (0-5) /HPF Urine RBC (Auto) (0-2) /HPF U Epithel Cells (Auto) (FEW) /HPF Urine Culture Reflexed (NO) Urine Glucose (NEGATIVE) mg/dL SARS-CoV-2 (PCR) (NEGATIVE) Accuchecks Date 03/22/21 Date 03/22/21 Date 03/22/21 Time 17:24 - Radiology Impressions Radiology Exams & Impressions: Radiology Procedures Category Date Time Status CHEST 1 VIEW (PORTABLE) Routine Exams 03/23/21 08:00 Ordered CHEST 1 VIEW (PORTABLE) Stat Exams 03/22/21 00:12 Completed - Other Procedures and Tests Respiratory Therapy 03/22/21 07:07 Oxygen Nasal Cannula 3 lpm 03/22/21 11:40 BiPap/CPAP ROUTINE Respiratory Therapy Assessment DAILY Assessment/Plan (1) Bilateral pneumonia Current Visit: Yes Status: Acute Qualifiers: Pneumonia type: due to unspecified organism Lung location: unspecified part of lung Qualified Code(s): J18.9 - Pneumonia, unspecified organism Assessment & Plan: Pt. will be admitted for iv abx and steroids with nebulizers Code(s): J18.9 - PNEUMONIA, UNSPECIFIED ORGANISM (2) Chronic hypoxemic respiratory failure Current Visit: No Status: Acute (3) Dyspnea Current Visit: No Status: Acute Onset Date: ~02/09/18 Code(s): R06.00 - DYSPNEA, UNSPECIFIED (4) Pneumonia Current Visit: No Status: Acute Code(s): J18.9 - PNEUMONIA, UNSPECIFIED ORGANISM
[2021-03-22] MEDS ORDERED: OLANZAPINE 10 MG PO SCH (22:00)
[2021-03-22] MEDS ORDERED: LIPITOR 40MG PO SCH (22:00)
[2021-03-22] MEDS: Zithromax 500 MG/ 250 ML NaCl Premix 500 MG/250 ML IVPB IV SCH (22:21)
[2021-03-22] MEDS: ROCEPHIN 1 Gm-D5w 50 ml Bag** 1 G/50 ML IVPB IV SCH (22:21)
[2021-03-22] MEDS: Sodium Chloride 0.9% 10 ML FLUSH Syringe IV PRN ×2 (22:22→22:27)
[2021-03-22] MEDS: ZOCOR 20MG PO SCH (22:26)
[2021-03-22] MEDS: ELIQUIS 2.5 MG TABLET PO SCH (22:26)
[2021-03-22] MEDS: Namenda 5 MG PO SCH (22:26)
[2021-03-22] MEDS: zyPREXA 5MG TABLET PO SCH (22:26)
[2021-03-23] MEDS: solu-MEDROL 60 MG, Sterile H2O 10 ml 2 ML IV SCH ×4 (00:14→05:47)
[2021-03-23] MEDS: DUONEB 0.5-3 MG/3 ml Neb IH SCH ×3 (05:27→18:57)
[2021-03-23] MEDS: Sodium Chloride 0.9% 10 ML FLUSH Syringe IV PRN (05:47)
[2021-03-23 06:39] LABS: Hematocrit 35.4 % (35-47); Hemoglobin 10.5 gm/dl (12.0-16.0); Mean Corpuscular Hgb Concent. 29.7 g/dl (32-36); Mean Platelet Volume 10.3 fl (7.5-11.0); Platelet Count 231 K/mm3 (150-450); Red Blood Count 3.89 M/mm3 (4.1-5.4); Red Cell Distribution Width 16.2 % (11.5-14.0); White Blood Count 15.7 K/mm3 (4.0-10.5)
[2021-03-23 06:57] LABS: ALBUMIN 3.7 g/dL (3.5-5.0); ANION GAP 16.4 MEQ/L (5-15); BILIRUBIN,TOTAL 0.3 mg/dL (0.2-1.3); Calcium 9.1 mg/dL (8.4-10.2); Creatinine 1 2.34 mg/dL (0.52-1.04); EST GLOMERULAR FILTRATION RATE 21.2 ML/MIN; Potassium 4.2 mmol/L (3.5-5.1); Total Protein 6.9 g/dL (6.3-8.2)
--- NOTE | 2021-03-23 07:57 | XRAY ---
Indication: Pneumonia. Comparison: One day earlier. Portable chest again demonstrates bibasilar infiltrates/atelectasis, worsened in right middle lobe appearing consolidated. Stable borderline cardiomegaly with left pacemaker and arteriosclerotic/tortuous descending aorta.
[2021-03-23 08:00] LABS: BAND 1 % (0.0-2.0); Lymphocytes 5 % (24-44); Neutrophils 94 % (36.0-66.0); Total Cells Counted 100
[2021-03-23 08:03] LABS: Platelet Estimate NORMAL (NORMAL)
[2021-03-23] MEDS: HUMALOG SQ SCH ×3 (08:23→18:47)
[2021-03-23] MEDS: HUMALOG SQ PRN ×4 (08:24→22:43)
[2021-03-23] MEDS: BUMEX 1 MG PO SCH (09:32)
[2021-03-23] MEDS: Aricept 10 MG PO SCH (09:32)
[2021-03-23] MEDS: ECOTRIN 81 MG PO SCH (09:33)
[2021-03-23] MEDS: Cozaar 50 MG PO SCH (09:33)
[2021-03-23] MEDS: ELIQUIS 2.5 MG TABLET PO SCH ×2 (09:33→21:47)
[2021-03-23] MEDS: FOLATE 1 MG PO SCH (09:33)
[2021-03-23] MEDS: Protonix 40MG Tablet PO SCH (09:34)
[2021-03-23] MEDS: Lexapro 10 MG PO SCH (09:34)
[2021-03-23] MEDS: NORVASC 5 MG PO SCH (09:34)
[2021-03-23] MEDS ORDERED: NON-FORMULARY ITEM (Losartan Potassium [Cozaar] 100 MG) PO SCH (10:00)
[2021-03-23] MEDS ORDERED: NON-FORMULARY ITEM (Donepezil Hcl [Aricept] 5 MG) PO SCH (10:00)
[2021-03-23] MEDS ORDERED: BABY ASPIRIN 81 MG CHEW PO SCH (10:00)
[2021-03-23] MEDS: Lantus Insulin SQ SCH ×2 (10:47→21:47)
[2021-03-23] MEDS: Sodium Chloride 0.9% 1000 ML 1,000 ML IV SCH ×2 (12:09→21:14)
[2021-03-23] MEDS: DELTASONE 20 MG PO SCH (12:10)
[2021-03-23] MEDS: Advair Hfa 115/21 Common canister IH SCH (19:00)
[2021-03-23] MEDS: ZOCOR 20MG PO SCH (21:46)
[2021-03-23] MEDS: zyPREXA 5MG TABLET PO SCH (21:46)
[2021-03-23] MEDS: Namenda 5 MG PO SCH (21:47)
[2021-03-23] MEDS: Zithromax 500 MG/ 250 ML NaCl Premix 500 MG/250 ML IVPB IV SCH (21:48)
[2021-03-23] MEDS: ROCEPHIN 1 Gm-D5w 50 ml Bag** 1 G/50 ML IVPB IV SCH (21:50)
[2021-03-24] MEDS: DUONEB 0.5-3 MG/3 ml Neb IH SCH ×4 (01:18→22:02)
[2021-03-24 06:28] LABS: Hemoglobin 10.4 gm/dl (12.0-16.0); Mean Cell Volume 91.9 fl (78-100); Mean Corpuscular Hemoglobin 27.3 pg (26-32); Mean Corpuscular Hgb Concent. 29.7 g/dl (32-36); Mean Platelet Volume 10.4 fl (7.5-11.0); Platelet Count 225 K/mm3 (150-450); Red Blood Count 3.81 M/mm3 (4.1-5.4); Red Cell Distribution Width 16.7 % (11.5-14.0); White Blood Count 14.1 K/mm3 (4.0-10.5)
[2021-03-24 06:54] LABS: ALBUMIN 3.5 g/dL (3.5-5.0); ANION GAP 15.8 MEQ/L (5-15); BILIRUBIN,TOTAL 0.2 mg/dL (0.2-1.3); Calcium 8.9 mg/dL (8.4-10.2); Creatinine 1 2.15 mg/dL (0.52-1.04); EST GLOMERULAR FILTRATION RATE 23.3 ML/MIN; Potassium 4.1 mmol/L (3.5-5.1); Total Protein 6.6 g/dL (6.3-8.2)
[2021-03-24] MEDS: Advair Hfa 115/21 Common canister IH SCH ×2 (08:00→22:02)
[2021-03-24] MEDS: HUMALOG SQ SCH ×3 (08:47→17:36)
[2021-03-24] MEDS: HUMALOG SQ PRN ×4 (08:48→22:08)
--- NOTE | 2021-03-24 08:51 | PCM.NOTE ---
Date and Time: 03/24/21 0848 Subjective Assessment: patient is doing better, states she feels ok. maintaining her oxygen saturation on 4L NC currently, tolerating po intake. daughter concerned that last visit she was very weak when she went home, having some intermittent choking at times. Objective Exam General Appearance: no apparent distress Neurologic Exam: alert, cooperative Respiratory Exam: prolonged expirations, rhonchi, No respiratory distress, No accessory muscle use, No crackles/rales, No wheezing Cardiovascular Exam: regular rate/rhythm, normal heart sounds Gastrointestinal/Abdomen Exam: soft, No tenderness, No mass Extremity Exam: normal inspection, normal range of motion OBJECTIVE DATA Vital Signs: Vital Signs - 24 hr Temp Pulse Resp BP Pulse Ox 03/24/21 08:00 96.3 F 72 22 139/65 91 L 03/24/21 05:38 64 20 95 03/24/21 04:00 97.4 F 65 20 143/67 96 03/24/21 01:18 61 23 93 L 03/24/21 00:00 99.0 F 81 21 143/67 92 L 03/23/21 22:16 88 L 03/23/21 20:00 99.3 F 76 20 113/57 93 L 03/23/21 19:00 80 22 91 L 03/23/21 16:00 95.3 F 88 22 111/60 93 L 03/23/21 13:25 66 22 91 L 03/23/21 12:00 96.4 F 72 23 128/68 91 L Pain Assessment - Last Documented Pain Intensity 0 Intake and Output: Intake & Output 03/21/21 03/22/21 03/23/21 03/24/21 11:59 11:59 11:59 11:59 Intake Total 1000 3180 2594 Output Total 4300 2150 Balance 1000 -1120 444 Weight 95.2 kg 93.5 kg Lab Results: Lab Results-Last 24 Hours 03/23/21 03/23/21 03/23/21 Range/Units 11:42 16:58 22:25 WBC (4.0-10.5) K/mm3 RBC (4.1-5.4) M/mm3 Hgb (12.0-16.0) gm/dl Hct (35-47) % MCV (78-100) fl MCH (26-32) pg MCHC (32-36) g/dl RDW (11.5-14.0) % Plt Count (150-450) K/mm3 MPV (7.5-11.0) fl Sodium (137-145) mmol/L Potassium (3.5-5.1) mmol/L Chloride (98-107) mmol/L Carbon Dioxide (22-30) mmol/L Anion Gap (5-15) MEQ/L BUN (7-17) mg/dL Creatinine (0.52-1.04) mg/dL Estimated GFR ML/MIN Glucose (74-106) mg/dL POC Glucometer 354 H 289 H 231 H (74 to 106) mg/dL Calcium (8.4-10.2) mg/dL Total Bilirubin (0.2-1.3) mg/dL AST (14-36) U/L ALT (0-35) U/L Alkaline Phosphatase (38-126) U/L Serum Total Protein (6.3-8.2) g/dL Albumin (3.5-5.0) g/dL 03/24/21 03/24/21 03/24/21 Range/Units 04:56 04:56 07:56 WBC 14.1 H (4.0-10.5) K/mm3 RBC 3.81 L (4.1-5.4) M/mm3 Hgb 10.4 L (12.0-16.0) gm/dl Hct 35.0 (35-47) % MCV 91.9 (78-100) fl MCH 27.3 (26-32) pg MCHC 29.7 L (32-36) g/dl RDW 16.7 H (11.5-14.0) % Plt Count 225 (150-450) K/mm3 MPV 10.4 (7.5-11.0) fl Sodium 145 D (137-145) mmol/L Potassium 4.1 (3.5-5.1) mmol/L Chloride 107 (98-107) mmol/L Carbon Dioxide 26 (22-30) mmol/L Anion Gap 15.8 H (5-15) MEQ/L BUN 45 H (7-17) mg/dL Creatinine 2.15 H (0.52-1.04) mg/dL Estimated GFR 23.3 ML/MIN Glucose 231 H (74-106) mg/dL POC Glucometer 209 H (74 to 106) mg/dL Calcium 8.9 (8.4-10.2) mg/dL Total Bilirubin 0.20 (0.2-1.3) mg/dL AST 21 (14-36) U/L ALT 16 (0-35) U/L Alkaline Phosphatase 66 (38-126) U/L Serum Total Protein 6.6 (6.3-8.2) g/dL Albumin 3.5 (3.5-5.0) g/dL Radiology Exams: Radiology Procedures Category Date Time Status CHEST 1 VIEW (PORTABLE) Routine Exams 03/23/21 08:00 Completed Assessment/Plan (1) Respiratory failure Current Visit: Yes Status: Acute Qualifiers: Chronicity: acute Respiratory failure complication: hypoxia Qualified Code(s): J96.01 - Acute respiratory failure with hypoxia Assessment & Plan: improved Code(s): J96.90 - RESPIRATORY FAILURE, UNSP, UNSP W HYPOXIA OR HYPERCAPNIA (2) Bilateral pneumonia Current Visit: Yes Status: Acute Qualifiers: Pneumonia type: due to unspecified organism Lung location: unspecified part of lung Qualified Code(s): J18.9 - Pneumonia, unspecified organism Assessment & Plan: continue rocephin/zithromax and nebulizer therapy. improving clinically Code(s): J18.9 - PNEUMONIA, UNSPECIFIED ORGANISM (3) Weakness Current Visit: No Status: Acute Assessment & Plan: consult PT Code(s): R53.1 - WEAKNESS (4) Choking Current Visit: Yes Status: Acute Assessment & Plan: speech therapy to evaluate Code(s): T17.308A - UNSP FOREIGN BODY IN LARYNX CAUSING OTH INJURY, INIT ENCNTR
[2021-03-24] MEDS: Sodium Chloride 0.9% 1000 ML 1,000 ML IV SCH ×2 (08:52→17:39)
[2021-03-24] MEDS: ECOTRIN 81 MG PO SCH (10:24)
[2021-03-24] MEDS: Aricept 10 MG PO SCH (10:24)
[2021-03-24] MEDS: BUMEX 1 MG PO SCH (10:24)
[2021-03-24] MEDS: Cozaar 50 MG PO SCH (10:24)
[2021-03-24] MEDS: Lexapro 10 MG PO SCH (10:24)
[2021-03-24] MEDS: ELIQUIS 2.5 MG TABLET PO SCH ×2 (10:25→22:07)
[2021-03-24] MEDS: NORVASC 5 MG PO SCH (10:25)
[2021-03-24] MEDS: FOLATE 1 MG PO SCH (10:25)
[2021-03-24] MEDS: Protonix 40MG Tablet PO SCH (10:25)
[2021-03-24] MEDS: DELTASONE 20 MG PO SCH (10:25)
[2021-03-24] MEDS: Lantus Insulin SQ SCH ×2 (12:00→22:08)
[2021-03-24] MEDS: ZOCOR 20MG PO SCH (22:06)
[2021-03-24] MEDS: zyPREXA 5MG TABLET PO SCH (22:06)
[2021-03-24] MEDS: Namenda 5 MG PO SCH (22:06)
[2021-03-24] MEDS: ROCEPHIN 1 Gm-D5w 50 ml Bag** 1 G/50 ML IVPB IV SCH (22:15)
[2021-03-24] MEDS: Zithromax 500 MG/ 250 ML NaCl Premix 500 MG/250 ML IVPB IV SCH (23:34)
[2021-03-25] MEDS: DUONEB 0.5-3 MG/3 ml Neb IH SCH ×2 (02:20→07:28)
[2021-03-25] MEDS: Sodium Chloride 0.9% 1000 ML 1,000 ML IV SCH (05:33)
[2021-03-25 06:39] LABS: Hematocrit 34.1 % (35-47); Mean Cell Volume 92.7 fl (78-100); Mean Corpuscular Hemoglobin 27.2 pg (26-32); Mean Corpuscular Hgb Concent. 29.3 g/dl (32-36); Mean Platelet Volume 10.3 fl (7.5-11.0); Platelet Count 251 K/mm3 (150-450); Red Blood Count 3.68 M/mm3 (4.1-5.4); Red Cell Distribution Width 16.6 % (11.5-14.0); White Blood Count 12.9 K/mm3 (4.0-10.5)
[2021-03-25 07:15] LABS: ANION GAP 11.4 MEQ/L (5-15); Calcium 8.4 mg/dL (8.4-10.2); Creatinine 1 1.72 mg/dL (0.52-1.04); EST GLOMERULAR FILTRATION RATE 30.2 ML/MIN; Potassium 3.8 mmol/L (3.5-5.1)
[2021-03-25 08:07] LABS: Lymphocytes 13 % (24-44); Monocyte 1 % (0.0-12.0); Neutrophils 86 % (36.0-66.0); Total Cells Counted 100
[2021-03-25 08:08] LABS: ANISOCYTOSIS 1+; Platelet Estimate NORMAL (NORMAL)
[2021-03-25 08:50] VITALS: BP 147/64
--- NOTE | 2021-03-25 09:16 | PCM.DS ---
Discharge Summary Date of Admission: 03/22/21 19:56 Admitting Physician: YARELIS PEGUERO Primary Care Provider: JANNETTE YADAV LORI Allergies Allergies carvedilol Allergy (Verified 03/22/21 11:52) Hospital Summary - Hospital Course Hospital Course: Pt is an 81yo female pt of Dr. Yadav with chronic hypoxemic respiratory failure, who came in through ER with hypoxemia and was found to have bilateral pneumonia. She is feeling much better; currently on day #4 of rocephin and zithromax. Wearing bipap at night. Daughter was concerned because after previous hospital admission, pt was weak at home; however yesterday PT worked with pt and daughter thought that her functionality is acceptable at home. Does have home health care arranged. Pt's renal function was decreased with eGFR in low 20s on admission; does have chronic renal failure. Today her eGFR is 30 which is the highest it's been since 2019. Pt has had some choking so will have barium swallow today. Likely to discharge home after that. F/u with Dr. Yadav in 1 week. - Vitals & Intake/Output Vital Signs: Vital Signs Temperature 98.1 F 03/25/21 08:00 Pulse Rate 72 03/25/21 08:00 Respiratory Rate 15 03/25/21 08:00 Blood Pressure 147/64 03/25/21 08:00 O2 Sat by Pulse Oximetry 94 L 03/25/21 08:00 Intake & Output: Intake & Output 03/22/21 03/23/21 03/24/21 03/25/21 11:59 11:59 11:59 11:59 Intake Total 1000 3180 3554 1120 Output Total 4300 2150 3250 Balance 1000 -1120 1404 -2130 Weight 95.2 kg 93.5 kg 96.5 kg - Lab Result Diagrams: 03/25/21 05:06 03/25/21 05:06 Lab Results-Last 24 Hrs: Lab Results-Last 24 Hours 03/24/21 03/24/21 03/24/21 Range/Units 11:53 17:28 20:37 WBC (4.0-10.5) K/mm3 RBC (4.1-5.4) M/mm3 Hgb (12.0-16.0) gm/dl Hct (35-47) % MCV (78-100) fl MCH (26-32) pg MCHC (32-36) g/dl RDW (11.5-14.0) % Plt Count (150-450) K/mm3 MPV (7.5-11.0) fl Segmented Neutrophils (36.0-66.0) % Lymphocytes (Manual) (24-44) % Monocytes (Manual) (0.0-12.0) % Platelet Estimate (NORMAL) RBC Morphology Anisocytosis Sodium (137-145) mmol/L Potassium (3.5-5.1) mmol/L Chloride (98-107) mmol/L Carbon Dioxide (22-30) mmol/L Anion Gap (5-15) MEQ/L BUN (7-17) mg/dL Creatinine (0.52-1.04) mg/dL Estimated GFR ML/MIN Glucose (74-106) mg/dL POC Glucometer 267 H 342 H 366 H (74 to 106) mg/dL Calcium (8.4-10.2) mg/dL 03/25/21 03/25/21 03/25/21 Range/Units 05:06 05:06 07:50 WBC 12.9 H (4.0-10.5) K/mm3 RBC 3.68 L (4.1-5.4) M/mm3 Hgb 10.0 L (12.0-16.0) gm/dl Hct 34.1 L (35-47) % MCV 92.7 (78-100) fl MCH 27.2 (26-32) pg MCHC 29.3 L (32-36) g/dl RDW 16.6 H (11.5-14.0) % Plt Count 251 (150-450) K/mm3 MPV 10.3 (7.5-11.0) fl Segmented Neutrophils 86 H (36.0-66.0) % Lymphocytes (Manual) 13 L (24-44) % Monocytes (Manual) 1 (0.0-12.0) % Platelet Estimate NORMAL (NORMAL) RBC Morphology ABNORMAL Anisocytosis 1+ Sodium 142 (137-145) mmol/L Potassium 3.8 (3.5-5.1) mmol/L Chloride 109 H (98-107) mmol/L Carbon Dioxide 26 (22-30) mmol/L Anion Gap 11.4 (5-15) MEQ/L BUN 42 H (7-17) mg/dL Creatinine 1.72 H (0.52-1.04) mg/dL Estimated GFR 30.2 ML/MIN Glucose 249 H (74-106) mg/dL POC Glucometer 197 H (74 to 106) mg/dL Calcium 8.4 (8.4-10.2) mg/dL Micro Results-Entire Visit: Microbiology 03/22/21 01:45 Blood Culture Gram Stain - Final Blood 03/22/21 01:30 Blood Culture - Preliminary Blood NO GROWTH TO DATE Accuchecks Date 03/25/21 Date 03/24/21 Date 03/24/21 Date 03/24/21 Time 22:00 Time 11:30 - Radiology Exams Ordered Rad Exams-Entire Visit: Radiology Procedures Category Date Time Status MODIFIED BARIUM SWALLOW (RAD) [MODIFIED BARIUM SWALLOW Exams 03/25/21 13:00 Ordered EXAM] Routine - Procedures and Test Procedures and Tests throughout Hospitalization: Therapy Orders & Screens 03/22/21 01:38 BiPap/CPAP STAT Comment: 03/22/21 07:07 Oxygen Nasal Cannula 3 lpm Comment: 03/22/21 11:40 BiPap/CPAP ROUTINE Comment: Diagnosis: PNEUMONIA Respiratory Therapy Assessment DAILY Comment: Diagnosis: PNEUMONIA 03/24/21 08:51 PT Eval & Treat ( Order) ONCE Reason for Eval:: weakness, unsteady Diagnosis: CARISSA PNEUMONIA Speech Therapy Eval & Treat [ Eval & Treat ( Order)] .as ordered Comment: Physician Instructions: Reason For Exam: Evaluate: choking Treat: Yes Reason for Eval: hx choking Diagnosis: CARISSA PNEUMONIA Discharge Exam General Appearance: no apparent distress, obese, other (wearing bipap, but wakes to touch and answers questions) Neurologic Exam: alert, cooperative Eye Exam: eyes nml inspection Ears, Nose, Throat Exam: moist mucous membranes Respiratory Exam: normal breath sounds, rhonchi (throughout; pt trying to cough at times), No wheezing Cardiovascular Exam: regular rate/rhythm, normal heart sounds, murmur (II/ sys murmur) Gastrointestinal/Abdomen Exam: soft, normal bowel sounds, No distention, No mass, No guarding, No rebound Extremity Exam: normal inspection, No pedal edema, No swelling Skin Exam: normal color, warm, dry, No rash Final Diagnosis/Problem List - Final Discharge Diagnosis/Problem (1) Bilateral pneumonia Current Visit: Yes Status: Acute Assessment & Plan: Much improved. Home today on cefdinir to finish 10d total antibiotic (6 more days) - if all goes well with barium swallow. Code(s): J18.9 - PNEUMONIA, UNSPECIFIED ORGANISM (2) Chronic hypoxemic respiratory failure Current Visit: Yes Status: Chronic (3) Choking Current Visit: Yes Status: Suspected Code(s): T17.308A - UNSP FOREIGN BODY IN LARYNX CAUSING OTH INJURY, INIT ENCNTR (4) Weakness Current Visit: No Status: Resolved Code(s): R53.1 - WEAKNESS (5) Essential hypertension Current Visit: No Status: Chronic Code(s): I10 - ESSENTIAL (PRIMARY) HYPERTENSION - Discharge Disposition: Home, Self-Care Condition: Stable Prescriptions: New Prednisone 20 mg [Deltasone 20 mg] 60 mg PO DAILY #17 tablet Cefdinir [Omnicef 300 mg] 300 mg PO BID #12 Continue Apixaban [Eliquis 5 mg Tablet] 2.5 mg PO BID Bumetanide 1 mg [Bumex 1 mg] 1 mg PO DAILY Memantine HCl 5 mg PO QHS PANTOPRAZOLE 40 mg Tablet [Protonix 40MG Tablet] 40 mg PO DAILY Losartan Potassium [Cozaar] 100 mg PO DAILY Folic Acid 1 mg [Folate 1 mg] 1 mg PO DAILY Donepezil HCl [Aricept] 5 mg PO DAILY Amlodipine Besylate 5 mg [Norvasc 5 mg] 5 mg PO DAILY Atorvastatin Calcium 40 mg PO HS Nitroglycerin 0.4 mg Tablet [Nitrostat 0.4 MG Tablet] 1 tablet SL UD PRN PRN Reason: Chest Pain Olanzapine 10 mg PO HS Insulin Glargine,Hum.rec.anlog [Lantus] 32 unit SQ BID Escitalopram Oxalate 10 mg [Lexapro 10 MG] 10 mg PO DAILY Aspirin 81 gm Chew [Baby Aspirin 81 mg Chew] 81 mg PO DAILY Cholecalciferol (Vitamin D3) [Vitamin D3] 10,000 unit PO WEEKLY Insulin Lispro [Humalog] 10 unit SQ TIDWM Additional Instructions: PATIENT HAS [facility]. PLEASE FAX HER D/C INFORMATION AND ORDERS WHEN DISCHARGED TO [phone]. THANK YOU! Follow up with: JANNETTE YADAV MD [Primary Care Provider] -
[2021-03-25 11:41] VITALS: PULSE 55
[2021-03-25] MEDS: HUMALOG SQ SCH (14:51)
--- NOTE | 2021-03-25 15:14 | XRAY ---
Indication: Dysphagia. Modified barium swallow study performed bedside by the department of speech therapy with fluoroscopic assistance provided. Patient ingested multiple consistencies of liquids and solids. Full report and recommendations will be reported separately. Approximately 57 seconds fluoroscopy used.
[2021-03-25] MEDS: Lexapro 10 MG PO SCH (15:15)
[2021-03-25] MEDS: Protonix 40MG Tablet PO SCH (15:15)
[2021-03-25] MEDS: FOLATE 1 MG PO SCH (15:15)
[2021-03-25] MEDS: DELTASONE 20 MG PO SCH (15:15)
[2021-03-25] MEDS: Aricept 10 MG PO SCH (15:15)
[2021-03-25] MEDS: NORVASC 5 MG PO SCH (15:16)
[2021-03-25] MEDS: BUMEX 1 MG PO SCH (15:16)
[2021-03-25] MEDS: ECOTRIN 81 MG PO SCH (15:16)
[2021-03-25] MEDS: Cozaar 50 MG PO SCH (15:16)
[2021-03-25] MEDS: Lantus Insulin SQ SCH (15:27)
[2021-03-25] MEDS: ELIQUIS 2.5 MG TABLET PO SCH (15:28)
[2021-03-27 08:00] VITALS: O2SAT 88
[2021-03-28] MEDS ORDERED: VITAMIN D PO SCH (10:00)
== END 2021-03-25 17:00 | disposition home health service (06) | DRG 194 ==
LOC: ED 00:08 → UNDOADMOB 06:44 → MED SURG 06:44 → OBSVTOIN 19:56 → INTOOBSV 19:56
PROVIDERS: ADMIT Family Medicine; ATTEND Family Medicine
DX: J18.9 Pneumonia, unspecified organism (principal); J96.11 Chronic respiratory failure with hypoxia; J44.1 Chronic obstructive pulmonary disease with (acute) exacerbation; E11.9 Type 2 diabetes mellitus without complications; R53.1 Weakness; T17.308A Unspecified foreign body in larynx causing other injury, initial encounter; I10 Essential (primary) hypertension; Z79.899 Other long term (current) drug therapy; Z79.01 Long term (current) use of anticoagulants; Z99.81 Dependence on supplemental oxygen; Z20.822 Contact with and (suspected) exposure to COVID-19
CPT/HCPCS: 36000; 36415; 36600; 51702; 71045; 74230; 80048; 80053; 81001; 82375; 82803; 82947; 83036; 83605; 83735; 83880; 84484; 85025; 85027; 87040; 92611; 93005; 93041; 93268; 94002; 94003; 94640; 94760; 96360; 96374; 97161; 97530; 99285; 99291; U0003; J0456; J0696; J1642; J1817; J2930; A9270-GY

== ENCOUNTER 2021-06-30 17:51 | Inpatient (IN) | payer MEDICARE, OTHER ==
[2021-06-30 18:26] LABS: A-aADO2 562; ABG HEMOGLOBIN 12.7; ABG POTASSIUM 4.4 (3.5-5.1); ABG SITE RIGHT RADIAL; ALLEN TEST OK? YES; ARTERIAL BLD GAS O2 SATURATION 98.4 % (95-100); ARTERIAL BLOOD GAS BASE EXCESS -2.4 (-2.0-2.0); ARTERIAL BLOOD GAS FIO2 100 %; ARTERIAL BLOOD GAS PCO2 34 mmHg (35-45); ARTERIAL BLOOD GAS PO2 109 mmHg (75-100); ARTERIAL BLOOD GAS VENT MODE BiPAP; ARTERIAL BLOOD GAS pH 7.41 (7.35-7.45); BASOPHIL % 0.3 % (0.0-0.4); Basophil (Absolute #) 0.04 (0-0.4); CARBOXYHEMOGLOBIN 3.2 % THgb (0.0-6.9); Eosinophil % 1.3 % (0.00-5.0); Eosinophil (Absolute #) 0.17 (0-0.5); HCO3- 21.6 (22-28); HGB O2 SAT 94.1 g/dF (94-100); Hematocrit 40.7 % (35-47); Lymphocyte (Absolute #) 1.22 (1.0-4.6); Lymphocytes % 9.6 % (24.0-44.0); Mean Cell Volume 92.3 fl (78-100); Mean Corpuscular Hemoglobin 27.2 pg (26-32); Mean Corpuscular Hgb Concent. 29.5 g/dl (32-36); Mean Platelet Volume 10.1 fl (7.5-11.0); Methhemoglobin 1.1 % (1.4-1.5); Monocyte (Absolute #) 0.71 (0.0-1.3); Monocytes % 5.6 % (0.0-12.0); Neutrophil % 83.2 % (36.0-66.0); Platelet Count 268 K/mm3 (150-450); Red Blood Count 4.41 M/mm3 (4.1-5.4); Red Cell Distribution Width 16.4 % (11.5-14.0); White Blood Count 12.7 K/mm3 (4.0-10.5)
[2021-06-30 18:42] LABS: Appearance CLEAR (CLEAR); Bilirubin NEGATIVE (NEGATIVE); Blood NEGATIVE Ery/ul (0-5); Glucose NEGATIVE (NEGATIVE); Ketones NEGATIVE (NEGATIVE); Leukocyte Esterase NEGATIVE (NEGATIVE); Nitrite NEGATIVE (NEGATIVE); Protein,Urine Dip NEGATIVE (Negative); Specific Gravity 1.012 (1.005-1.025); Urobilinogen NEGATIVE mg/dL (0-1)
[2021-06-30 18:46] LABS: ALBUMIN 4.1 g/dL (3.5-5.0); ANION GAP 15.4 MEQ/L (5-15); BILIRUBIN,TOTAL 0.5 mg/dL (0.2-1.3); Calcium 9.2 mg/dL (8.4-10.2); Creatinine 1 1.94 mg/dL (0.52-1.04); EST GLOMERULAR FILTRATION RATE 26.3 ML/MIN; Potassium 4.5 mmol/L (3.5-5.1); Total Protein 7.3 g/dL (6.3-8.2)
--- NOTE | 2021-06-30 19:18 | ERPHSYRPT ---
- History of Present Illness Source: patient, EMS Exam Limitations: clinical condition (Dementia) Patient Subjective Stated Complaint: Medics state "Family thinks that she might have aspirated water today at 1445. Family stated that her O2 sats were low so they put her on 6 lpm O2 with no improvement. We put her on 15 LPM non rebreather and her O2 improved a little." Triage Nursing Assessment: Pt presented alert and oriented X 3, skin pwd pt able to sepak in two to three word sentences pt tachypneic, low O2 sats with good wave form. Physician History: 81 yo obese wf w multiple medical problems arrived per EMS on 100% nonrebreather mask after possible aspiration at 14:30. Pt's sat in mid 80's but corby to mid/high 90's when placed on Bipap in ER. Activities at Onset: rest, other (Possible aspiration) Modifying Factors: Improves With: oxygen (Sats improved on Bipap) Allergies/Adverse Reactions: carvedilol Allergy (Verified 03/22/21 11:52) Home Medications: Amlodipine Besylate 5 mg [Norvasc 5 mg] 5 mg PO DAILY 02/08/18 [History] Apixaban [Eliquis 5 mg Tablet] 2.5 mg PO BID 02/08/18 [History] Atorvastatin Calcium 40 mg PO HS 02/08/18 [History] Bumetanide 1 mg [Bumex 1 mg] 1 mg PO DAILY 02/08/18 [History] Donepezil HCl [Aricept] 5 mg PO DAILY 02/08/18 [History] Folic Acid 1 mg [Folate 1 mg] 1 mg PO DAILY 02/08/18 [History] Losartan Potassium [Cozaar] 100 mg PO DAILY 02/08/18 [History] Memantine HCl 5 mg PO QHS 02/08/18 [History] Nitroglycerin 0.4 mg Tablet [Nitrostat 0.4 MG Tablet] 1 tablet SL UD PRN 02/08/18 [History] PANTOPRAZOLE 40 mg Tablet [Protonix 40MG Tablet] 40 mg PO DAILY 02/08/18 [History] OLANZapine [Olanzapine] 10 mg PO HS 02/27/19 [History] Insulin Glargine,Hum.rec.anlog [Lantus] 1 unit SQ UD 04/19/19 [History] Aspirin 81 gm Chew [Baby Aspirin 81 mg Chew] 81 mg PO DAILY 08/30/19 [History] Escitalopram Oxalate 10 mg [Lexapro 10 MG] 10 mg PO DAILY 08/30/19 [History] Cholecalciferol (Vitamin D3) [Vitamin D3] 10,000 unit PO WEEKLY 08/31/19 [History] Insulin Lispro [Humalog] 1 unit SQ UD 08/31/19 [History] Fluticasone/Umeclidin/Vilanter [Trelegy Ellipta 100-62.5-25] 1 puff IH DAILY 07/01/21 [History] Potassium Chloride 7.5 ml PO BID 07/01/21 [History] Hx Tetanus, Diphtheria Vaccination/Date Given: Yes Hx Influenza Vaccination/Date Given: Yes Hx Pneumococcal Vaccination/Date Given: Yes Immunizations Up to Date: Yes Travel Risk - International Travel Have you traveled outside of the country in past 3 weeks: No - Coronavirus Screening Are you exhibiting any of the following symptoms?: Yes Symptoms: Shortness of Breath Close contact with a COVID-19 positive Pt in past 14-21 Days: No - Vaccine Status Have you recieved a Covid-19 vaccination: (unknown) Access Rep: Unknown - Vaccination Dates Dates if Unknown: unknown - Review of Systems All Other Systems: Unable due to condition, Unable due to dementia - Past Medical History Pertinent Past Medical History: Yes Neurological History: Alzheimer's Disease, Dementia, Peripheral Neuropathy, Stroke ENT History: Cataracts Cardiac History: Hypertension Respiratory History: CHF, COPD, Sleep Apnea, Other Endocrine Medical History: Diabetes Type II Musculoskeletal History: Arthritis GI Medical History: Diverticulitis, Irritable Bowel History: No Pertinent History, Renal Disease Psycho-Social History: No Pertinent History Female Reproductive Disorders: No Pertinent History, Other Other Medical History: pt family states pt noncompliant with cpap, ovarian cysts - Past Surgical History Past Surgical History: Yes Neuro Surgical History: No Pertinent History Cardiac: No Pertinent History, Internal Defibrillator, Pacemaker Respiratory: No Pertinent History Gastrointestinal: No Pertinent History Genitourinary: Other Musculoskeletal: No Pertinent History Female Surgical History: Tubal Ligation Other Surgical History: ear surgery, cataract surgery, bladder tuck,lasik surgery. Kidney removed - Social History Smoking Status: Former smoker How long have you smoked: 50 Exposure to second hand smoke: No Drug Use: none Patient Lives Alone: No Significant Family History: no pertinent family hx - Nursing Vital Signs Nursing Vital Signs: Initial Vital Signs Temperature 97.8 F 06/30/21 17:52 Pulse Rate 75 06/30/21 17:52 Respiratory Rate 24 06/30/21 17:52 Blood Pressure 161/81 06/30/21 17:52 O2 Sat by Pulse Oximetry 86 L 06/30/21 17:52 Pain Scale Pain Intensity 0 Hypertensive/Hypoxic - Physical Exam General Appearance: mild distress Eye Exam: PERRL/EOMI, post op pupil defect (L) Ears, Nose, Throat Exam: normal ENT inspection Neck Exam: normal inspection, non-tender Respiratory Exam: respiratory distress (Mild to moderate), diminished breath sounds (Decreased BS L base) Cardiovascular/Chest Exam: normal heart sounds, regular rate/rhythm, No murmur Abdominal/Gastrointestinal Exam: soft, normal bowel sounds (Obese) Neurologic Exam: alert (Oriented to name only) Skin Exam: normal color, warm, dry Lymphatic Exam: No adenopathy SpO2 Interpretation: hypoxic SpO2: 90 O2 Delivery: Non-rebreather - Course EKG Interpreted by Me: RATE (NSR/R71/Prolonged QTc/Low voltage/No acute ST segment changes) - Radiology Exams Chest X-ray Interpretation: Interpreted by me (Cardiomegaly/LLL infiltrate-effu khoa/Pacer) - CT Exams Chest CT Interpretation: Discussed w/radiologist (LLL dense infiltrate) Ordered Tests: Active Orders 24 hr Category Date Time Status EKG-ER Only STAT Care 06/30/21 17:53 Completed Lea [Catheter-Max Lea] STAT Care 06/30/21 17:58 Completed IV Insertion STAT Care 06/30/21 17:53 Completed Vital Signs .q15mx2,q3omx2,q1hx2,[id number] Care 06/30/21 21:15 Completed Clear Liquid Diet 06/30/21 Breakfast Active CHEST 1 VIEW (PORTABLE) Stat Exams 06/30/21 17:54 Taken CHEST WITHOUT CONTRAST [CT] Stat Exams 06/30/21 18:58 Taken ABG [ARTERIAL BLOOD GASES] Stat Lab 06/30/21 18:15 Completed BLOOD CULTURE Stat Lab 06/30/21 18:15 Received BMP AM.LAB Lab 07/01/21 04:00 Ordered CBC W DIFF AM.LAB Lab 07/01/21 04:00 Ordered CBC W DIFF Stat Lab 06/30/21 18:15 Completed CMP Stat Lab 06/30/21 18:15 Completed CULTURE,URINE Stat Lab 06/30/21 18:55 Ordered Lactic Acid Stat Lab 06/30/21 18:15 Completed NT PRO BNP Stat Lab 06/30/21 18:15 Completed PROTIME WITH INR Stat Lab 06/30/21 20:00 Completed PTT Stat Lab 06/30/21 20:00 Completed TROPONIN Q3H Lab 06/30/21 18:15 Completed TROPONIN Q3H Lab 06/30/21 20:00 Completed TROPONIN Q3H Lab 07/01/21 00:00 Completed TROPONIN Q3H Lab 07/01/21 03:00 Ordered TROPONIN Q3H Lab 07/01/21 06:00 Ordered UA W/RFX UR CULTURE Stat Lab 06/30/21 17:57 Completed Medication Summary Generic Name Dose Route Start Last Admin Trade Name Freq PRN Reason Stop Dose Admin Piperacillin Sod/Tazobactam 100 mls @ 200 mls/hr 07/01/21 00:00 07/01/21 04:03 Sod 3.375 gm/ Sodium Chloride IV 07/04/21 00:00 200 mls/hr Q6HT ROSARIO Administration Azithromycin 250 mls @ 125 mls/hr 07/01/21 10:00 Zithromax 500 Mg/ 250 Ml Nacl Premix IV 07/31/21 09:59 [id number] ROSARIO Discontinued Medications Generic Name Dose Route Start Last Admin Trade Name Freq PRN Reason Stop Dose Admin Ceftriaxone Sodium/Dextrose 1 g in 50 mls @ 100 mls/hr 06/30/21 20:01 06/30/21 21:32 Rocephin 1 Gm-D5w 50 Ml Bag IV 06/30/21 20:30 Infused STAT STA Infusion Ceftriaxone Sodium/Dextrose Confirm 06/30/21 20:06 Rocephin 1 Gm-D5w 50 Ml Bag Administered 06/30/21 20:07 Dose 1 g in 50 mls @ ud IV .STK-MED ONE Sodium Chloride Confirm 07/01/21 03:39 Sodium Chloride 100ml Mini-Bag Plus Administered 07/01/21 03:40 Dose 100 mls @ ud IV .STK-MED ONE Piperacillin Sod/Tazobactam Sod Confirm 07/01/21 03:38 Piperacillin/Tazobactam Sodium 3.375 Gm Vial Administered 07/01/21 03:39 Dose 3.375 gm IV .STK-MED ONE Lab/Rad Data: Laboratory Result Diagrams 06/30/21 18:15 06/30/21 18:15 Laboratory Results 07/01/21 06/30/21 06/30/21 Range/Units 00:00 20:17 20:00 WBC (4.0-10.5) K/mm3 RBC (4.1-5.4) M/mm3 Hgb (12.0-16.0) gm/dl Hct (35-47) % MCV (78-100) fl MCH (26-32) pg MCHC (32-36) g/dl RDW (11.5-14.0) % Plt Count (150-450) K/mm3 MPV (7.5-11.0) fl Gran % (36.0-66.0) % Eos # (Auto) (0-0.5) Absolute Lymphs (auto) (1.0-4.6) Absolute Monos (auto) (0.0-1.3) Lymphocytes % (24.0-44.0) % Monocytes % (0.0-12.0) % Eosinophils % (0.00-5.0) % Basophils % (0.0-0.4) % Absolute Granulocytes (1.4-6.9) Basophils # (0-0.4) PT (9.4-12.5) SECONDS INR (0.8-3.0) APTT (25.1-36.5) SECONDS Puncture Site pCO2 (35-45) mmHg pO2 (75-100) mmHg Base Excess (-2.0-2.0) O2 Saturation (94-100) g/dF ABG pH (7.35-7.45) ABG HCO3 (22-28) ABG O2 Sat (Measured) (95-100) % Emmanuel Test A-a Gradient a/A Ratio Hemoglobin Carboxyhemoglobin (0.0-6.9) % THgb Methemoglobin (1.4-1.5) % Potassium (3.5-5.1) Temperature C POC O2 Flow Rate % Vent Mode Sodium (137-145) mmol/L Chloride (98-107) mmol/L Carbon Dioxide (22-30) mmol/L Anion Gap (5-15) MEQ/L BUN (7-17) mg/dL Creatinine (0.52-1.04) mg/dL Estimated GFR ML/MIN Glucose (74-106) mg/dL Lactic Acid (0.4-2.0) Calcium (8.4-10.2) mg/dL Total Bilirubin (0.2-1.3) mg/dL AST (14-36) U/L ALT (0-35) U/L Alkaline Phosphatase (38-126) U/L Troponin I 0.082 H* 0.083 H* (0.000-0.034) ng/mL NT-Pro-B Natriuret Pep (0-1800) pg/mL Serum Total Protein (6.3-8.2) g/dL Albumin (3.5-5.0) g/dL Urine Color (YELLOW) Urine Appearance (CLEAR) Urine pH (5-6) Ur Specific [place] (1.005-1.025) Urine Protein (Negative) Urine Ketones (NEGATIVE) Urine Blood (0-5) Wilbert/ul Urine Nitrite (NEGATIVE) Urine Bilirubin (NEGATIVE) Urine Urobilinogen (0-1) mg/dL Ur Leukocyte Esterase (NEGATIVE) Urine WBC (Auto) (0-5) /HPF Urine RBC (Auto) (0-2) /HPF Urine Culture Reflexed (NO) Urine Glucose (NEGATIVE) mg/dL Influenza Type A Ag NEGATIVE (NEGATIVE) Influenza Type B Ag NEGATIVE (NEGATIVE) RSV (PCR) NEGATIVE (Negative) SARS-CoV-2 (PCR) NEGATIVE (NEGATIVE) 06/30/21 06/30/21 06/30/21 Range/Units 20:00 18:15 18:15 WBC (4.0-10.5) K/mm3 RBC (4.1-5.4) M/mm3 Hgb (12.0-16.0) gm/dl Hct (35-47) % MCV (78-100) fl MCH (26-32) pg MCHC (32-36) g/dl RDW (11.5-14.0) % Plt Count (150-450) K/mm3 MPV (7.5-11.0) fl Gran % (36.0-66.0) % Eos # (Auto) (0-0.5) Absolute Lymphs (auto) (1.0-4.6) Absolute Monos (auto) (0.0-1.3) Lymphocytes % (24.0-44.0) % Monocytes % (0.0-12.0) % Eosinophils % (0.00-5.0) % Basophils % (0.0-0.4) % Absolute Granulocytes (1.4-6.9) Basophils # (0-0.4) PT 15.8 H (9.4-12.5) SECONDS INR 1.34 (0.8-3.0) APTT 36.6 H (25.1-36.5) SECONDS Puncture Site RIGHT RADIAL pCO2 34 L (35-45) mmHg pO2 109 H (75-100) mmHg Base Excess -2.4 L (-2.0-2.0) O2 Saturation 94.1 (94-100) g/dF ABG pH 7.41 (7.35-7.45) ABG HCO3 21.6 L (22-28) ABG O2 Sat (Measured) 98.4 (95-100) % Emmanuel Test YES A-a Gradient 562 a/A Ratio 0.16 Hemoglobin 12.7 Carboxyhemoglobin 3.2 (0.0-6.9) % THgb Methemoglobin 1.1 L (1.4-1.5) % Potassium 4.4 (3.5-5.1) Temperature 37.0 C POC O2 Flow Rate 100 % Vent Mode BiPAP Sodium (137-145) mmol/L Chloride (98-107) mmol/L Carbon Dioxide (22-30) mmol/L Anion Gap (5-15) MEQ/L BUN (7-17) mg/dL Creatinine (0.52-1.04) mg/dL Estimated GFR ML/MIN Glucose (74-106) mg/dL Lactic Acid 0.8 (0.4-2.0) Calcium (8.4-10.2) mg/dL Total Bilirubin (0.2-1.3) mg/dL AST (14-36) U/L ALT (0-35) U/L Alkaline Phosphatase (38-126) U/L Troponin I (0.000-0.034) ng/mL NT-Pro-B Natriuret Pep (0-1800) pg/mL Serum Total Protein (6.3-8.2) g/dL Albumin (3.5-5.0) g/dL Urine Color (YELLOW) Urine Appearance (CLEAR) Urine pH (5-6) Ur Specific [place] (1.005-1.025) Urine Protein (Negative) Urine Ketones (NEGATIVE) Urine Blood (0-5) Wilbert/ul Urine Nitrite (NEGATIVE) Urine Bilirubin (NEGATIVE) Urine Urobilinogen (0-1) mg/dL Ur Leukocyte Esterase (NEGATIVE) Urine WBC (Auto) (0-5) /HPF Urine RBC (Auto) (0-2) /HPF Urine Culture Reflexed (NO) Urine Glucose (NEGATIVE) mg/dL Influenza Type A Ag (NEGATIVE) Influenza Type B Ag (NEGATIVE) RSV (PCR) (Negative) SARS-CoV-2 (PCR) (NEGATIVE) 06/30/21 06/30/21 06/30/21 Range/Units 18:15 18:15 18:15 WBC 12.7 H (4.0-10.5) K/mm3 RBC 4.41 (4.1-5.4) M/mm3 Hgb 12.0 (12.0-16.0) gm/dl Hct 40.7 (35-47) % MCV 92.3 (78-100) fl MCH 27.2 (26-32) pg MCHC 29.5 L (32-36) g/dl RDW 16.4 H (11.5-14.0) % Plt Count 268 (150-450) K/mm3 MPV 10.1 (7.5-11.0) fl Gran % 83.2 H (36.0-66.0) % Eos # (Auto) 0.17 (0-0.5) Absolute Lymphs (auto) 1.22 (1.0-4.6) Absolute Monos (auto) 0.71 (0.0-1.3) Lymphocytes % 9.6 L (24.0-44.0) % Monocytes % 5.6 (0.0-12.0) % Eosinophils % 1.3 (0.00-5.0) % Basophils % 0.3 (0.0-0.4) % Absolute Granulocytes 10.60 H (1.4-6.9) Basophils # 0.04 (0-0.4) PT (9.4-12.5) SECONDS INR (0.8-3.0) APTT (25.1-36.5) SECONDS Puncture Site pCO2 (35-45) mmHg pO2 (75-100) mmHg Base Excess (-2.0-2.0) O2 Saturation (94-100) g/dF ABG pH (7.35-7.45) ABG HCO3 (22-28) ABG O2 Sat (Measured) (95-100) % Emmanuel Test A-a Gradient a/A Ratio Hemoglobin Carboxyhemoglobin (0.0-6.9) % THgb Methemoglobin (1.4-1.5) % Potassium 4.5 (3.5-5.1) Temperature C POC O2 Flow Rate % Vent Mode Sodium 141 (137-145) mmol/L Chloride 108 H (98-107) mmol/L Carbon Dioxide 22 (22-30) mmol/L Anion Gap 15.4 H (5-15) MEQ/L BUN 36 H (7-17) mg/dL Creatinine 1.94 H (0.52-1.04) mg/dL Estimated GFR 26.3 ML/MIN Glucose 137 H (74-106) mg/dL Lactic Acid (0.4-2.0) Calcium 9.2 (8.4-10.2) mg/dL Total Bilirubin 0.50 (0.2-1.3) mg/dL AST 129 H (14-36) U/L ALT 216 H (0-35) U/L Alkaline Phosphatase 313 H (38-126) U/L Troponin I 0.066 H* (0.000-0.034) ng/mL NT-Pro-B Natriuret Pep 353 (0-1800) pg/mL Serum Total Protein 7.3 (6.3-8.2) g/dL Albumin 4.1 (3.5-5.0) g/dL Urine Color (YELLOW) Urine Appearance (CLEAR) Urine pH (5-6) Ur Specific [place] (1.005-1.025) Urine Protein (Negative) Urine Ketones (NEGATIVE) Urine Blood (0-5) Wilbert/ul Urine Nitrite (NEGATIVE) Urine Bilirubin (NEGATIVE) Urine Urobilinogen (0-1) mg/dL Ur Leukocyte Esterase (NEGATIVE) Urine WBC (Auto) (0-5) /HPF Urine RBC (Auto) (0-2) /HPF Urine Culture Reflexed (NO) Urine Glucose (NEGATIVE) mg/dL Influenza Type A Ag (NEGATIVE) Influenza Type B Ag (NEGATIVE) RSV (PCR) (Negative) SARS-CoV-2 (PCR) (NEGATIVE) 06/30/21 Range/Units 17:57 WBC (4.0-10.5) K/mm3 RBC (4.1-5.4) M/mm3 Hgb (12.0-16.0) gm/dl Hct (35-47) % MCV (78-100) fl MCH (26-32) pg MCHC (32-36) g/dl RDW (11.5-14.0) % Plt Count (150-450) K/mm3 MPV (7.5-11.0) fl Gran % (36.0-66.0) % Eos # (Auto) (0-0.5) Absolute Lymphs (auto) (1.0-4.6) Absolute Monos (auto) (0.0-1.3) Lymphocytes % (24.0-44.0) % Monocytes % (0.0-12.0) % Eosinophils % (0.00-5.0) % Basophils % (0.0-0.4) % Absolute Granulocytes (1.4-6.9) Basophils # (0-0.4) PT (9.4-12.5) SECONDS INR (0.8-3.0) APTT (25.1-36.5) SECONDS Puncture Site pCO2 (35-45) mmHg pO2 (75-100) mmHg Base Excess (-2.0-2.0) O2 Saturation (94-100) g/dF ABG pH (7.35-7.45) ABG HCO3 (22-28) ABG O2 Sat (Measured) (95-100) % Emmanuel Test A-a Gradient a/A Ratio Hemoglobin Carboxyhemoglobin (0.0-6.9) % THgb Methemoglobin (1.4-1.5) % Potassium (3.5-5.1) Temperature C POC O2 Flow Rate % Vent Mode Sodium (137-145) mmol/L Chloride (98-107) mmol/L Carbon Dioxide (22-30) mmol/L Anion Gap (5-15) MEQ/L BUN (7-17) mg/dL Creatinine (0.52-1.04) mg/dL Estimated GFR ML/MIN Glucose (74-106) mg/dL Lactic Acid (0.4-2.0) Calcium (8.4-10.2) mg/dL Total Bilirubin (0.2-1.3) mg/dL AST (14-36) U/L ALT (0-35) U/L Alkaline Phosphatase (38-126) U/L Troponin I (0.000-0.034) ng/mL NT-Pro-B Natriuret Pep (0-1800) pg/mL Serum Total Protein (6.3-8.2) g/dL Albumin (3.5-5.0) g/dL Urine Color YELLOW (YELLOW) Urine Appearance CLEAR (CLEAR) Urine pH 5.0 (5-6) Ur Specific [place] 1.012 (1.005-1.025) Urine Protein NEGATIVE (Negative) Urine Ketones NEGATIVE (NEGATIVE) Urine Blood NEGATIVE (0-5) Wilbert/ul Urine Nitrite NEGATIVE (NEGATIVE) Urine Bilirubin NEGATIVE (NEGATIVE) Urine Urobilinogen NEGATIVE (0-1) mg/dL Ur Leukocyte Esterase NEGATIVE (NEGATIVE) Urine WBC (Auto) NONE (0-5) /HPF Urine RBC (Auto) NONE (0-2) /HPF Urine Culture Reflexed ORDERED SEPARATELY (NO) Urine Glucose NEGATIVE (NEGATIVE) mg/dL Influenza Type A Ag (NEGATIVE) Influenza Type B Ag (NEGATIVE) RSV (PCR) (Negative) SARS-CoV-2 (PCR) (NEGATIVE) - Progress Progress: improved Progress Note: 06/30/21 21:[address] Randolph 07/01/21 06:27 1gm IV Rocephin Pt stable on Bipap during stay Discussed with : Kirsten - Departure Clinical Impression: Pneumonia, Respiratory failure Condition: Critical Critical Care Time: Yes Critical Care Time(excluding separately billable procedures): Critical 30-74 mins
[2021-06-30] MEDS ORDERED: ROCEPHIN 1 Gm-D5w 50 ml Bag** 1 G/50 ML IVPB IV STA (20:01)
[2021-06-30] MEDS ORDERED: ROCEPHIN 1 Gm-D5w 50 ml Bag** 1 G/50 ML IVPB IV ONE (20:06)
[2021-06-30 20:15] LABS: INR 1.34 (0.8-3.0); PROTIME 15.8 SECONDS (9.4-12.5)
[2021-06-30 20:18] LABS: PTT 36.6 SECONDS (25.1-36.5)
[2021-06-30 21:06] LABS: INFLUENZA A NEGATIVE (NEGATIVE); INFLUENZA B NEGATIVE (NEGATIVE); RESPIRATORY SYNCTIAL VIRUS NEGATIVE (Negative); SARS-CoV-2 Xpert Express NEGATIVE (NEGATIVE)
[2021-07-01] MEDS ORDERED: Zosyn 3.375 GM Vial 3.375 GM in Sodium Chloride 100ML MINI-BAG PLUS 100 ML IV SCH ×2
[2021-07-01] MEDS ORDERED: Zosyn 3.375 GM Vial IV ONE (03:38)
[2021-07-01] MEDS ORDERED: Sodium Chloride 100ML MINI-BAG PLUS 100 ML IV ONE (03:39)
[2021-07-01 06:51] LABS: Absolute Neutrophil Ct (ANC) 6.26 (1.4-6.9); BASOPHIL % 0.7 % (0.0-0.4); Basophil (Absolute #) 0.06 (0-0.4); Eosinophil % 4.7 % (0.00-5.0); Eosinophil (Absolute #) 0.42 (0-0.5); Hematocrit 38.2 % (35-47); Hemoglobin 11.4 gm/dl (12.0-16.0); Lymphocyte (Absolute #) 1.49 (1.0-4.6); Lymphocytes % 16.7 % (24.0-44.0); Mean Cell Volume 91.8 fl (78-100); Mean Corpuscular Hemoglobin 27.4 pg (26-32); Mean Corpuscular Hgb Concent. 29.8 g/dl (32-36); Mean Platelet Volume 9.7 fl (7.5-11.0); Monocyte (Absolute #) 0.69 (0.0-1.3); Monocytes % 7.7 % (0.0-12.0); Neutrophil % 70.2 % (36.0-66.0); Platelet Count 251 K/mm3 (150-450); Red Blood Count 4.16 M/mm3 (4.1-5.4); Red Cell Distribution Width 16.1 % (11.5-14.0); White Blood Count 8.9 K/mm3 (4.0-10.5)
[2021-07-01 07:14] LABS: ANION GAP 11.6 MEQ/L (5-15); Calcium 8.9 mg/dL (8.4-10.2); Creatinine 1 1.81 mg/dL (0.52-1.04); EST GLOMERULAR FILTRATION RATE 28.4 ML/MIN; Potassium 3.5 mmol/L (3.5-5.1)
--- NOTE | 2021-07-01 08:44 | XRAY ---
Indication: Short of breath. Comparison: April 30, 2021. Portable chest demonstrates worsening bibasilar infiltrates/atelectasis, left greater than right. Stable cardiomegaly, left pacemaker, and arteriosclerotic/tortuous aorta. Bony thorax intact again with osteopenia and degenerative changes.
--- NOTE | 2021-07-01 08:44 | XRAY ---
Indication: Respiratory distress. Multiple contiguous axial images obtained through the chest without contrast. Comparison: None Study is degraded by respiration artifact throughout. Lungs demonstrates bilateral lower lobe and lesser degree right middle lobe consolidating airspace disease without effusion. There is bronchi opacification of the same above branches. Incidental tiny right middle lobe calcified/noncalcified nodules. Heart is enlarged with left duly pacemaker. Aorta is markedly arteriosclerotic with descending aorta appearing tortuous and ectatic. Distal thoracic aorta/proximal abdominal aorta demonstrates fusiform dilatation up to 4.5 cm in diameter. Tiny right hilar calcified nodes. Bony thorax intact with osteopenia and mild degenerative changes throughout the spine. Limited upper abdomen unremarkable. Impression: 1. Diffuse respiration artifact limits exam. 2. Bilateral lower lobe and right middle lobe consolidating air space disease with opacification of the same corresponding bronchi. Aspiration pneumonia offered for clinical consideration. 3. Cardiomegaly, significant scattered arteriosclerotic disease, tortuous descending aorta with distal aneurysm, old granulomatous disease, and chronic bony findings.
[2021-07-01] MEDS ORDERED: Nitrostat 0.4 MG Tablet SL PRN (11:01)
[2021-07-01] MEDS ORDERED: NON-FORMULARY ITEM (Insulin Lispro 1 UNIT Ml) SQ SCH (11:15)
[2021-07-01] MEDS ORDERED: Lantus Insulin SQ SCH (11:15)
[2021-07-01] MEDS: Zithromax 500 MG/ 250 ML NaCl Premix 500 MG/250 ML IVPB IV SCH (11:30)
[2021-07-01] MEDS ORDERED: APIXABAN PO SCH (11:30)
[2021-07-01] MEDS: HUMALOG SQ SCH ×2 (11:32→17:52)
[2021-07-01] MEDS ORDERED: MEDICATION INTERVENTION MC SCH (11:45)
[2021-07-01] MEDS: ELIQUIS 2.5 MG TABLET PO SCH ×2 (12:50→22:32)
[2021-07-01] MEDS: NORVASC 5 MG PO SCH (12:50)
[2021-07-01] MEDS: Protonix 40MG Tablet PO SCH (12:50)
[2021-07-01] MEDS: Cozaar 50 MG PO SCH (12:51)
[2021-07-01] MEDS: FOLATE 1 MG PO SCH (12:51)
[2021-07-01] MEDS: Lexapro 10 MG PO SCH (12:51)
[2021-07-01] MEDS: ECOTRIN 81 MG PO SCH (12:51)
[2021-07-01] MEDS: Zosyn 3.375 GM Vial 3.375 GM in Sodium Chloride 100ML MINI-BAG PLUS 100 ML IV SCH ×2 (15:20→22:33)
--- NOTE | 2021-07-01 17:17 | PCM.HP ---
History of Present Illness - Chief Complaint Chief Complaint: ASPIRATION PNEUMONIA History of Present Illness: Late entry for 07/01/21 at 0815. is a 81 year old female pt of Dr. Rouse with DM, HTN, COPD, chronic hypoxemic respiratory failure, chronic renal failure, and hard of hearing who was admitted through ER last night with aspiration pneumonia in [facility]. She was given 1 dose IV rocephin then started on IV zosyn and admitted. She was seen by family apparently to choke on water last night. She is a very poor historian, extremely hard of hearing and on bipap right now. - Review of Systems All Other Systems: Unable due to condition (not oriented to time; oriented to place) Medications & Allergies Home Medications: Home Medication List Amlodipine Besylate 5 mg [Norvasc 5 mg] 5 mg PO DAILY 02/08/18 [History Confirmed 06/30/21] Apixaban [Eliquis 5 mg Tablet] 2.5 mg PO BID 02/08/18 [History Confirmed 06/30/21] Atorvastatin Calcium 40 mg PO HS 02/08/18 [History Confirmed 06/30/21] Bumetanide 1 mg [Bumex 1 mg] 1 mg PO DAILY 02/08/18 [History Confirmed 06/30/21] Donepezil HCl [Aricept] 5 mg PO DAILY 02/08/18 [History Confirmed 06/30/21] Folic Acid 1 mg [Folate 1 mg] 1 mg PO DAILY 02/08/18 [History Confirmed 06/30/21] Losartan Potassium [Cozaar] 100 mg PO DAILY 02/08/18 [History Confirmed 06/30/21] Memantine HCl 5 mg PO QHS 02/08/18 [History Confirmed 06/30/21] Nitroglycerin 0.4 mg Tablet [Nitrostat 0.4 MG Tablet] 1 tablet SL UD PRN 02/08/18 [History Confirmed 06/30/21] PANTOPRAZOLE 40 mg Tablet [Protonix 40MG Tablet] 40 mg PO DAILY 02/08/18 [ History Confirmed 06/30/21] OLANZapine [Olanzapine] 10 mg PO HS 02/27/19 [History Confirmed 06/30/21] Insulin Glargine,Hum.rec.anlog [Lantus] 1 unit SQ UD 04/19/19 [History Confirmed 07/01/21] Aspirin 81 gm Chew [Baby Aspirin 81 mg Chew] 81 mg PO DAILY 08/30/19 [History Confirmed 06/30/21] Escitalopram Oxalate 10 mg [Lexapro 10 MG] 10 mg PO DAILY 08/30/19 [History Confirmed 06/30/21] Cholecalciferol (Vitamin D3) [Vitamin D3] 10,000 unit PO WEEKLY 08/31/19 [History Confirmed 06/30/21] Insulin Lispro [Humalog] 1 unit SQ UD 08/31/19 [History Confirmed 07/01/21] Fluticasone/Umeclidin/Vilanter [Trelegy Ellipta 100-62.5-25] 1 puff IH DAILY 07/01/21 [History Confirmed 07/01/21] Potassium Chloride 7.5 ml PO BID 07/01/21 [History Confirmed 07/01/21] Allergies/Adverse Reactions: Allergies Allergy/AdvReac Type Severity Reaction Status Date / Time carvedilol Allergy Verified 03/22/21 11:52 - Past Medical History Past Medical History: Yes Neurological History: Alzheimer's Disease, Dementia, Peripheral Neuropathy, Stroke ENT History: Cataracts Cardiac History: Hypertension Respiratory History: CHF, COPD, Sleep Apnea, Other Endocrine Medical History: Diabetes Type II Musculoskelatal History: Arthritis GI Medical History: Diverticulitis, Irritable Bowel History: No Pertinent History, Renal Disease Pyscho-Social History: No Pertinent History Reproductive Disorders: No Pertinent History, Other Comment: pt family states pt noncompliant with cpap, ovarian cysts - Past Surgical History Past Surgical History: Yes Neuro Surgical History: No Pertinent History Cardiac History: No Pertinent History, Internal Defibrillator, Pacemaker Respiratory Surgery: No Pertinent History GI Surgical History: No Pertinent History Genitourinary Surgical Hx: Other Musculskeletal Surgical Hx: No Pertinent History Female Surgical History: Tubal Ligation Other Surgical History: ear surgery, cataract surgery, bladder tuck,lasik surgery. Kidney removed - Social History Smoking Status: Former smoker How long have you smoked: 50 Exposure to second hand smoke: No Alcohol: None Drug Use: none Significant Family History: no pertinent family hx - Physical Exam Vital Signs: Vital Signs - 24 hr Temp Pulse Resp BP Pulse Ox 07/01/21 12:00 96.6 F 123 H 24 141/86 96 07/01/21 08:00 96.5 F 64 24 137/75 98 07/01/21 07:14 99 07/01/21 06:28 90 L 07/01/21 04:00 97.2 F 61 24 171/86 97 07/01/21 02:09 97.5 F 61 26 H 140/74 97 06/30/21 23:16 69 31 H 155/83 97 06/30/21 18:53 99.0 F 66 26 H 146/91 90 L 06/30/21 17:52 97.8 F 75 24 161/81 86 L General Appearance: no apparent distress, obese, other (on bipap) Neurologic Exam: alert, cooperative, disoriented Eye Exam: eyes nml inspection Ears, Nose, Throat Exam: moist mucous membranes Neck Exam: normal inspection Respiratory Exam: prolonged expirations, rhonchi (on L upper and lower lobes) Cardiovascular Exam: regular rate/rhythm, normal heart sounds, No murmur Gastrointestinal/Abdomen Exam: soft, normal bowel sounds, No tenderness, No mass, No guarding, No rebound Extremity Exam: normal inspection, No pedal edema, No swelling Skin Exam: normal color, warm, dry, No rash Results - Labs Lab/Micro Results: Lab Results-Last 24 Hours 06/30/21 06/30/21 06/30/21 Range/Units 17:57 18:15 18:15 WBC 12.7 H (4.0-10.5) K/mm3 RBC 4.41 (4.1-5.4) M/mm3 Hgb 12.0 (12.0-16.0) gm/dl Hct 40.7 (35-47) % MCV 92.3 (78-100) fl MCH 27.2 (26-32) pg MCHC 29.5 L (32-36) g/dl RDW 16.4 H (11.5-14.0) % Plt Count 268 (150-450) K/mm3 MPV 10.1 (7.5-11.0) fl Gran % 83.2 H (36.0-66.0) % Eos # (Auto) 0.17 (0-0.5) Absolute Lymphs (auto) 1.22 (1.0-4.6) Absolute Monos (auto) 0.71 (0.0-1.3) Lymphocytes % 9.6 L (24.0-44.0) % Monocytes % 5.6 (0.0-12.0) % Eosinophils % 1.3 (0.00-5.0) % Basophils % 0.3 (0.0-0.4) % Absolute Granulocytes 10.60 H (1.4-6.9) Basophils # 0.04 (0-0.4) PT (9.4-12.5) SECONDS INR (0.8-3.0) APTT (25.1-36.5) SECONDS Puncture Site pCO2 (35-45) mmHg pO2 (75-100) mmHg Base Excess (-2.0-2.0) O2 Saturation (94-100) g/dF ABG pH (7.35-7.45) ABG HCO3 (22-28) ABG O2 Sat (Measured) (95-100) % Emmanuel Test A-a Gradient a/A Ratio Hemoglobin Carboxyhemoglobin (0.0-6.9) % THgb Methemoglobin (1.4-1.5) % Potassium 4.5 (3.5-5.1) Temperature C POC O2 Flow Rate % Vent Mode Sodium 141 (137-145) mmol/L Chloride 108 H (98-107) mmol/L Carbon Dioxide 22 (22-30) mmol/L Anion Gap 15.4 H (5-15) MEQ/L BUN 36 H (7-17) mg/dL Creatinine 1.94 H (0.52-1.04) mg/dL Estimated GFR 26.3 ML/MIN Glucose 137 H (74-106) mg/dL POC Glucometer (74 to 106) mg/dL Lactic Acid (0.4-2.0) Calcium 9.2 (8.4-10.2) mg/dL Total Bilirubin 0.50 (0.2-1.3) mg/dL AST 129 H (14-36) U/L ALT 216 H (0-35) U/L Alkaline Phosphatase 313 H (38-126) U/L Troponin I (0.000-0.034) ng/mL NT-Pro-B Natriuret Pep 353 (0-1800) pg/mL Serum Total Protein 7.3 (6.3-8.2) g/dL Albumin 4.1 (3.5-5.0) g/dL Urine Color YELLOW (YELLOW) Urine Appearance CLEAR (CLEAR) Urine pH 5.0 (5-6) Ur Specific [place] 1.012 (1.005-1.025) Urine Protein NEGATIVE (Negative) Urine Ketones NEGATIVE (NEGATIVE) Urine Blood NEGATIVE (0-5) Wilbert/ul Urine Nitrite NEGATIVE (NEGATIVE) Urine Bilirubin NEGATIVE (NEGATIVE) Urine Urobilinogen NEGATIVE (0-1) mg/dL Ur Leukocyte Esterase NEGATIVE (NEGATIVE) Urine WBC (Auto) NONE (0-5) /HPF Urine RBC (Auto) NONE (0-2) /HPF Urine Culture Reflexed ORDERED SEPARATELY (NO) Urine Glucose NEGATIVE (NEGATIVE) mg/dL Influenza Type A Ag (NEGATIVE) Influenza Type B Ag (NEGATIVE) RSV (PCR) (Negative) SARS-CoV-2 (PCR) (NEGATIVE) 06/30/21 06/30/21 06/30/21 Range/Units 18:15 18:15 18:15 WBC (4.0-10.5) K/mm3 RBC (4.1-5.4) M/mm3 Hgb (12.0-16.0) gm/dl Hct (35-47) % MCV (78-100) fl MCH (26-32) pg MCHC (32-36) g/dl RDW (11.5-14.0) % Plt Count (150-450) K/mm3 MPV (7.5-11.0) fl Gran % (36.0-66.0) % Eos # (Auto) (0-0.5) Absolute Lymphs (auto) (1.0-4.6) Absolute Monos (auto) (0.0-1.3) Lymphocytes % (24.0-44.0) % Monocytes % (0.0-12.0) % Eosinophils % (0.00-5.0) % Basophils % (0.0-0.4) % Absolute Granulocytes (1.4-6.9) Basophils # (0-0.4) PT (9.4-12.5) SECONDS INR (0.8-3.0) APTT (25.1-36.5) SECONDS Puncture Site RIGHT RADIAL pCO2 34 L (35-45) mmHg pO2 109 H (75-100) mmHg Base Excess -2.4 L (-2.0-2.0) O2 Saturation 94.1 (94-100) g/dF ABG pH 7.41 (7.35-7.45) ABG HCO3 21.6 L (22-28) ABG O2 Sat (Measured) 98.4 (95-100) % Emmanuel Test YES A-a Gradient 562 a/A Ratio 0.16 Hemoglobin 12.7 Carboxyhemoglobin 3.2 (0.0-6.9) % THgb Methemoglobin 1.1 L (1.4-1.5) % Potassium 4.4 (3.5-5.1) Temperature 37.0 C POC O2 Flow Rate 100 % Vent Mode BiPAP Sodium (137-145) mmol/L Chloride (98-107) mmol/L Carbon Dioxide (22-30) mmol/L Anion Gap (5-15) MEQ/L BUN (7-17) mg/dL Creatinine (0.52-1.04) mg/dL Estimated GFR ML/MIN Glucose (74-106) mg/dL POC Glucometer (74 to 106) mg/dL Lactic Acid 0.8 (0.4-2.0) Calcium (8.4-10.2) mg/dL Total Bilirubin (0.2-1.3) mg/dL AST (14-36) U/L ALT (0-35) U/L Alkaline Phosphatase (38-126) U/L Troponin I 0.066 H* (0.000-0.034) ng/mL NT-Pro-B Natriuret Pep (0-1800) pg/mL Serum Total Protein (6.3-8.2) g/dL Albumin (3.5-5.0) g/dL Urine Color (YELLOW) Urine Appearance (CLEAR) Urine pH (5-6) Ur Specific [place] (1.005-1.025) Urine Protein (Negative) Urine Ketones (NEGATIVE) Urine Blood (0-5) Wilbert/ul Urine Nitrite (NEGATIVE) Urine Bilirubin (NEGATIVE) Urine Urobilinogen (0-1) mg/dL Ur Leukocyte Esterase (NEGATIVE) Urine WBC (Auto) (0-5) /HPF Urine RBC (Auto) (0-2) /HPF Urine Culture Reflexed (NO) Urine Glucose (NEGATIVE) mg/dL Influenza Type A Ag (NEGATIVE) Influenza Type B Ag (NEGATIVE) RSV (PCR) (Negative) SARS-CoV-2 (PCR) (NEGATIVE) 06/30/21 06/30/21 06/30/21 Range/Units 20:00 20:00 20:17 WBC (4.0-10.5) K/mm3 RBC (4.1-5.4) M/mm3 Hgb (12.0-16.0) gm/dl Hct (35-47) % MCV (78-100) fl MCH (26-32) pg MCHC (32-36) g/dl RDW (11.5-14.0) % Plt Count (150-450) K/mm3 MPV (7.5-11.0) fl Gran % (36.0-66.0) % Eos # (Auto) (0-0.5) Absolute Lymphs (auto) (1.0-4.6) Absolute Monos (auto) (0.0-1.3) Lymphocytes % (24.0-44.0) % Monocytes % (0.0-12.0) % Eosinophils % (0.00-5.0) % Basophils % (0.0-0.4) % Absolute Granulocytes (1.4-6.9) Basophils # (0-0.4) PT 15.8 H (9.4-12.5) SECONDS INR 1.34 (0.8-3.0) APTT 36.6 H (25.1-36.5) SECONDS Puncture Site pCO2 (35-45) mmHg pO2 (75-100) mmHg Base Excess (-2.0-2.0) O2 Saturation (94-100) g/dF ABG pH (7.35-7.45) ABG HCO3 (22-28) ABG O2 Sat (Measured) (95-100) % Emmanuel Test A-a Gradient a/A Ratio Hemoglobin Carboxyhemoglobin (0.0-6.9) % THgb Methemoglobin (1.4-1.5) % Potassium (3.5-5.1) Temperature C POC O2 Flow Rate % Vent Mode Sodium (137-145) mmol/L Chloride (98-107) mmol/L Carbon Dioxide (22-30) mmol/L Anion Gap (5-15) MEQ/L BUN (7-17) mg/dL Creatinine (0.52-1.04) mg/dL Estimated GFR ML/MIN Glucose (74-106) mg/dL POC Glucometer (74 to 106) mg/dL Lactic Acid (0.4-2.0) Calcium (8.4-10.2) mg/dL Total Bilirubin (0.2-1.3) mg/dL AST (14-36) U/L ALT (0-35) U/L Alkaline Phosphatase (38-126) U/L Troponin I 0.083 H* (0.000-0.034) ng/mL NT-Pro-B Natriuret Pep (0-1800) pg/mL Serum Total Protein (6.3-8.2) g/dL Albumin (3.5-5.0) g/dL Urine Color (YELLOW) Urine Appearance (CLEAR) Urine pH (5-6) Ur Specific [place] (1.005-1.025) Urine Protein (Negative) Urine Ketones (NEGATIVE) Urine Blood (0-5) Wilbert/ul Urine Nitrite (NEGATIVE) Urine Bilirubin (NEGATIVE) Urine Urobilinogen (0-1) mg/dL Ur Leukocyte Esterase (NEGATIVE) Urine WBC (Auto) (0-5) /HPF Urine RBC (Auto) (0-2) /HPF Urine Culture Reflexed (NO) Urine Glucose (NEGATIVE) mg/dL Influenza Type A Ag NEGATIVE (NEGATIVE) Influenza Type B Ag NEGATIVE (NEGATIVE) RSV (PCR) NEGATIVE (Negative) SARS-CoV-2 (PCR) NEGATIVE (NEGATIVE) 07/01/21 07/01/21 07/01/21 Range/Units 00:00 06:40 06:40 WBC 8.9 (4.0-10.5) K/mm3 RBC 4.16 (4.1-5.4) M/mm3 Hgb 11.4 L (12.0-16.0) gm/dl Hct 38.2 (35-47) % MCV 91.8 (78-100) fl MCH 27.4 (26-32) pg MCHC 29.8 L (32-36) g/dl RDW 16.1 H (11.5-14.0) % Plt Count 251 (150-450) K/mm3 MPV 9.7 (7.5-11.0) fl Gran % 70.2 H (36.0-66.0) % Eos # (Auto) 0.42 (0-0.5) Absolute Lymphs (auto) 1.49 (1.0-4.6) Absolute Monos (auto) 0.69 (0.0-1.3) Lymphocytes % 16.7 L (24.0-44.0) % Monocytes % 7.7 (0.0-12.0) % Eosinophils % 4.7 (0.00-5.0) % Basophils % 0.7 (0.0-0.4) % Absolute Granulocytes 6.26 (1.4-6.9) Basophils # 0.06 (0-0.4) PT (9.4-12.5) SECONDS INR (0.8-3.0) APTT (25.1-36.5) SECONDS Puncture Site pCO2 (35-45) mmHg pO2 (75-100) mmHg Base Excess (-2.0-2.0) O2 Saturation (94-100) g/dF ABG pH (7.35-7.45) ABG HCO3 (22-28) ABG O2 Sat (Measured) (95-100) % Emmanuel Test A-a Gradient a/A Ratio Hemoglobin Carboxyhemoglobin (0.0-6.9) % THgb Methemoglobin (1.4-1.5) % Potassium (3.5-5.1) Temperature C POC O2 Flow Rate % Vent Mode Sodium (137-145) mmol/L Chloride (98-107) mmol/L Carbon Dioxide (22-30) mmol/L Anion Gap (5-15) MEQ/L BUN (7-17) mg/dL Creatinine (0.52-1.04) mg/dL Estimated GFR ML/MIN Glucose (74-106) mg/dL POC Glucometer (74 to 106) mg/dL Lactic Acid (0.4-2.0) Calcium (8.4-10.2) mg/dL Total Bilirubin (0.2-1.3) mg/dL AST (14-36) U/L ALT (0-35) U/L Alkaline Phosphatase (38-126) U/L Troponin I 0.082 H* 0.071 H* (0.000-0.034) ng/mL NT-Pro-B Natriuret Pep (0-1800) pg/mL Serum Total Protein (6.3-8.2) g/dL Albumin (3.5-5.0) g/dL Urine Color (YELLOW) Urine Appearance (CLEAR) Urine pH (5-6) Ur Specific [place] (1.005-1.025) Urine Protein (Negative) Urine Ketones (NEGATIVE) Urine Blood (0-5) Wilbert/ul Urine Nitrite (NEGATIVE) Urine Bilirubin (NEGATIVE) Urine Urobilinogen (0-1) mg/dL Ur Leukocyte Esterase (NEGATIVE) Urine WBC (Auto) (0-5) /HPF Urine RBC (Auto) (0-2) /HPF Urine Culture Reflexed (NO) Urine Glucose (NEGATIVE) mg/dL Influenza Type A Ag (NEGATIVE) Influenza Type B Ag (NEGATIVE) RSV (PCR) (Negative) SARS-CoV-2 (PCR) (NEGATIVE) 07/01/21 07/01/21 07/01/21 Range/Units 06:40 08:19 12:46 WBC (4.0-10.5) K/mm3 RBC (4.1-5.4) M/mm3 Hgb (12.0-16.0) gm/dl Hct (35-47) % MCV (78-100) fl MCH (26-32) pg MCHC (32-36) g/dl RDW (11.5-14.0) % Plt Count (150-450) K/mm3 MPV (7.5-11.0) fl Gran % (36.0-66.0) % Eos # (Auto) (0-0.5) Absolute Lymphs (auto) (1.0-4.6) Absolute Monos (auto) (0.0-1.3) Lymphocytes % (24.0-44.0) % Monocytes % (0.0-12.0) % Eosinophils % (0.00-5.0) % Basophils % (0.0-0.4) % Absolute Granulocytes (1.4-6.9) Basophils # (0-0.4) PT (9.4-12.5) SECONDS INR (0.8-3.0) APTT (25.1-36.5) SECONDS Puncture Site pCO2 (35-45) mmHg pO2 (75-100) mmHg Base Excess (-2.0-2.0) O2 Saturation (94-100) g/dF ABG pH (7.35-7.45) ABG HCO3 (22-28) ABG O2 Sat (Measured) (95-100) % Emmanuel Test A-a Gradient a/A Ratio Hemoglobin Carboxyhemoglobin (0.0-6.9) % THgb Methemoglobin (1.4-1.5) % Potassium 3.5 D (3.5-5.1) Temperature C POC O2 Flow Rate % Vent Mode Sodium 141 (137-145) mmol/L Chloride 109 H (98-107) mmol/L Carbon Dioxide 24 (22-30) mmol/L Anion Gap 11.6 (5-15) MEQ/L BUN 31 H (7-17) mg/dL Creatinine 1.81 H (0.52-1.04) mg/dL Estimated GFR 28.4 ML/MIN Glucose 87 (74-106) mg/dL POC Glucometer 84 90 (74 to 106) mg/dL Lactic Acid (0.4-2.0) Calcium 8.9 (8.4-10.2) mg/dL Total Bilirubin (0.2-1.3) mg/dL AST (14-36) U/L ALT (0-35) U/L Alkaline Phosphatase (38-126) U/L Troponin I (0.000-0.034) ng/mL NT-Pro-B Natriuret Pep (0-1800) pg/mL Serum Total Protein (6.3-8.2) g/dL Albumin (3.5-5.0) g/dL Urine Color (YELLOW) Urine Appearance (CLEAR) Urine pH (5-6) Ur Specific [place] (1.005-1.025) Urine Protein (Negative) Urine Ketones (NEGATIVE) Urine Blood (0-5) Wilbert/ul Urine Nitrite (NEGATIVE) Urine Bilirubin (NEGATIVE) Urine Urobilinogen (0-1) mg/dL Ur Leukocyte Esterase (NEGATIVE) Urine WBC (Auto) (0-5) /HPF Urine RBC (Auto) (0-2) /HPF Urine Culture Reflexed (NO) Urine Glucose (NEGATIVE) mg/dL Influenza Type A Ag (NEGATIVE) Influenza Type B Ag (NEGATIVE) RSV (PCR) (Negative) SARS-CoV-2 (PCR) (NEGATIVE) 07/01/21 Range/Units 16:48 WBC (4.0-10.5) K/mm3 RBC (4.1-5.4) M/mm3 Hgb (12.0-16.0) gm/dl Hct (35-47) % MCV (78-100) fl MCH (26-32) pg MCHC (32-36) g/dl RDW (11.5-14.0) % Plt Count (150-450) K/mm3 MPV (7.5-11.0) fl Gran % (36.0-66.0) % Eos # (Auto) (0-0.5) Absolute Lymphs (auto) (1.0-4.6) Absolute Monos (auto) (0.0-1.3) Lymphocytes % (24.0-44.0) % Monocytes % (0.0-12.0) % Eosinophils % (0.00-5.0) % Basophils % (0.0-0.4) % Absolute Granulocytes (1.4-6.9) Basophils # (0-0.4) PT (9.4-12.5) SECONDS INR (0.8-3.0) APTT (25.1-36.5) SECONDS Puncture Site pCO2 (35-45) mmHg pO2 (75-100) mmHg Base Excess (-2.0-2.0) O2 Saturation (94-100) g/dF ABG pH (7.35-7.45) ABG HCO3 (22-28) ABG O2 Sat (Measured) (95-100) % Emmanuel Test A-a Gradient a/A Ratio Hemoglobin Carboxyhemoglobin (0.0-6.9) % THgb Methemoglobin (1.4-1.5) % Potassium (3.5-5.1) Temperature C POC O2 Flow Rate % Vent Mode Sodium (137-145) mmol/L Chloride (98-107) mmol/L Carbon Dioxide (22-30) mmol/L Anion Gap (5-15) MEQ/L BUN (7-17) mg/dL Creatinine (0.52-1.04) mg/dL Estimated GFR ML/MIN Glucose (74-106) mg/dL POC Glucometer 100 (74 to 106) mg/dL Lactic Acid (0.4-2.0) Calcium (8.4-10.2) mg/dL Total Bilirubin (0.2-1.3) mg/dL AST (14-36) U/L ALT (0-35) U/L Alkaline Phosphatase (38-126) U/L Troponin I (0.000-0.034) ng/mL NT-Pro-B Natriuret Pep (0-1800) pg/mL Serum Total Protein (6.3-8.2) g/dL Albumin (3.5-5.0) g/dL Urine Color (YELLOW) Urine Appearance (CLEAR) Urine pH (5-6) Ur Specific [place] (1.005-1.025) Urine Protein (Negative) Urine Ketones (NEGATIVE) Urine Blood (0-5) Wilbert/ul Urine Nitrite (NEGATIVE) Urine Bilirubin (NEGATIVE) Urine Urobilinogen (0-1) mg/dL Ur Leukocyte Esterase (NEGATIVE) Urine WBC (Auto) (0-5) /HPF Urine RBC (Auto) (0-2) /HPF Urine Culture Reflexed (NO) Urine Glucose (NEGATIVE) mg/dL Influenza Type A Ag (NEGATIVE) Influenza Type B Ag (NEGATIVE) RSV (PCR) (Negative) SARS-CoV-2 (PCR) (NEGATIVE) - Radiology Impressions Radiology Exams & Impressions: Radiology Procedures Category Date Time Status CHEST 1 VIEW (PORTABLE) Stat Exams 06/30/21 17:54 Completed CHEST WITHOUT CONTRAST [CT] Stat Exams 06/30/21 18:58 Completed - Other Procedures and Tests Respiratory Therapy 06/30/21 18:32 BiPap/CPAP ROUTINE 07/01/21 06:00 Oxygen Nasal Cannula 4 lpm Assessment/Plan (1) Aspiration pneumonia Current Visit: Yes Status: Acute Qualifiers: Laterality: left Lung location: lower lobe of lung Assessment & Plan: on #2. ST eval; nurse observed pt "gulping" water down very quickly. Code(s): J69.0 - PNEUMONITIS DUE TO INHALATION OF FOOD AND VOMIT (2) Chronic renal failure Current Visit: Yes Status: Chronic Qualifiers: Chronic kidney disease stage: stage 4 (severe) Qualified Code(s): N18.4 - Chronic kidney disease, stage 4 (severe) Assessment & Plan: eGFR has been in the 20s since Feb 2019. (3) COPD (chronic obstructive pulmonary disease) Current Visit: No Status: Chronic Qualifiers: COPD type: chronic bronchitis Chronic bronchitis type: unspecified Qualified Code(s): J42 - Unspecified chronic bronchitis
[2021-07-01] MEDS ORDERED: NON-FORMULARY ITEM (Potassium Chloride [Potassium Chloride] 20 MEQ/15 ML Liquid) PO SCH (22:00)
[2021-07-01] MEDS ORDERED: NON-FORMULARY ITEM (Olanzapine [Olanzapine] 10 MG Tablet) PO SCH (22:00)
[2021-07-01] MEDS ORDERED: LIPITOR 40MG PO SCH (22:00)
[2021-07-01] MEDS: zyPREXA 5MG TABLET PO SCH (22:32)
[2021-07-01] MEDS: ZOCOR 20MG PO SCH (22:32)
[2021-07-01] MEDS: K-LYTE 25 MEQ PO SCH (22:33)
[2021-07-02] MEDS: Zosyn 3.375 GM Vial 3.375 GM in Sodium Chloride 100ML MINI-BAG PLUS 100 ML IV SCH ×3 (06:18→21:41)
--- NOTE | 2021-07-02 09:21 | PCM.NOTE ---
Date and Time: 07/02/21918 Subjective Assessment: patient is currently on bipap (wears at home at night) she states she feels ok, she is coughing some during exam. interview limited by bipap Objective Exam General Appearance: no apparent distress Neurologic Exam: alert, cooperative, other (very hard of hearing) Skin Exam: normal color, warm, dry Respiratory Exam: rhonchi Cardiovascular Exam: regular rate/rhythm, normal heart sounds Gastrointestinal/Abdomen Exam: soft, No tenderness, No mass Extremity Exam: normal inspection, normal range of motion OBJECTIVE DATA Vital Signs: Vital Signs - 24 hr Temp Pulse Resp BP Pulse Ox 07/02/21 08:00 98.3 F 64 20 132/64 99 07/02/21 06:51 97 07/02/21 04:00 97.5 F 61 18 153/83 99 07/02/21 00:00 98.2 F 60 20 132/65 98 07/01/21 20:00 98.0 F 60 22 133/73 98 07/01/21 18:15 97 07/01/21 16:45 99.8 F 60 24 138/76 99 07/01/21 12:00 96.6 F 123 H 24 141/86 96 Pain Assessment - Last Documented Pain Intensity 0 Intake and Output: Intake & Output 06/29/21 06/30/21 07/01/21 07/02/21 11:59 11:59 11:59 11:59 Intake Total 461 Output Total 2300 Balance -1839 Weight 92.8 kg Lab Results: Lab Results-Last 24 Hours 07/01/21 07/01/21 07/01/21 Range/Units 12:46 16:30 16:48 POC Glucometer 90 100 (74 to 106) mg/dL Hemoglobin A1c 6.21 H (4.5-6.0) % 07/01/21 07/02/21 Range/Units 22:29 07:20 POC Glucometer 82 91 (74 to 106) mg/dL Hemoglobin A1c (4.5-6.0) % Radiology Exams: Radiology Procedures Category Date Time Status CHEST 1 VIEW (PORTABLE) Stat Exams 06/30/21 17:54 Completed CHEST WITHOUT CONTRAST [CT] Stat Exams 06/30/21 18:58 Completed Multi-Disciplinary Progress Notes: Multi-Disciplinary Progress Notes 07/01/21 15:54 Speech Therapy Note by Merly Mukherjee ORDERS RECEIVED FOR BEDSIDE SWALLOW EVALUATION. UPON ST ARRIVAL AT ROOM, PATIENT WAS NOTED TO HAVE BEEN PLACED ON BIPAP DUE TO LOW OXYGEN LEVELS. SWALLOW EVALUATION PLACED ON HOLD AT THIS TIME. ST WILL CONTINUE TO MONITOR FOR CHANGE IN PATIENT STATUS. MS DEVEN, CCC/CARBONIZER Initialized on 07/01/21 15:54 - END OF NOTE 07/01/21 10:53 Respiratory Note by Karina Perez ON BIPAP AT THIS TIME 06/16-80%, SPO2 99% Initialized on 07/01/21 10:53 - END OF NOTE 07/01/21 09:57 Respiratory Note by Karina Perez placed on bipap due to low spo2 Initialized on 07/01/21 09:57 - END OF NOTE Assessment/Plan (1) Aspiration pneumonia Current Visit: Yes Status: Acute Qualifiers: Laterality: left Lung location: lower lobe of lung Assessment & Plan: on zosyn, afebrile and clinically stable, will attempt to wean to cannula or high flow so we can evaluate Beatrice's swallowing mechanism with ST. she has had aspiration in the past, her intermediate prognosis is poor with her dementia and multiple medical problems, her family understands this Code(s): J69.0 - PNEUMONITIS DUE TO INHALATION OF FOOD AND VOMIT (2) Chronic renal failure Current Visit: Yes Status: Chronic Qualifiers: Chronic kidney disease stage: stage 4 (severe) Qualified Code(s): N18.4 - Chronic kidney disease, stage 4 (severe) (3) CHF (congestive heart failure) Current Visit: No Status: Acute Code(s): I50.9 - HEART FAILURE, UNSPECIFIED (4) Chronic hypoxemic respiratory failure Current Visit: No Status: Acute (5) Alzheimer's dementia with behavioral disturbance Current Visit: No Status: Chronic Code(s): G30.9 - ALZHEIMER'S DISEASE, UNSPECIFIED; F02.81 - DEMENTIA IN OTH DISEASES CLASSD ELSWHR W BEHAVIORAL DISTURB
[2021-07-02] MEDS: Protonix 40MG Tablet PO SCH (09:46)
[2021-07-02] MEDS: K-LYTE 25 MEQ PO SCH ×2 (09:46→21:41)
[2021-07-02] MEDS: ELIQUIS 2.5 MG TABLET PO SCH ×2 (09:46→21:41)
[2021-07-02] MEDS: Lexapro 10 MG PO SCH (09:46)
[2021-07-02] MEDS: FOLATE 1 MG PO SCH (09:46)
[2021-07-02] MEDS: NORVASC 5 MG PO SCH (09:46)
[2021-07-02] MEDS: Cozaar 50 MG PO SCH (09:46)
[2021-07-02] MEDS: ECOTRIN 81 MG PO SCH (09:46)
[2021-07-02] MEDS: Zithromax 500 MG/ 250 ML NaCl Premix 500 MG/250 ML IVPB IV SCH (09:48)
[2021-07-02] MEDS ORDERED: BABY ASPIRIN 81 MG CHEW PO SCH (10:00)
[2021-07-02] MEDS ORDERED: NON-FORMULARY ITEM (Losartan Potassium [Cozaar] 100 MG Tablet) PO SCH (10:00)
[2021-07-02] MEDS ORDERED: NON-FORMULARY ITEM (Fluticasone/Umeclidin/Vilanter [Trelegy Ellipta 100-62.5-25] 1 EACH Bl IH SCH (10:00)
[2021-07-02] MEDS: ZOCOR 20MG PO SCH (21:41)
[2021-07-02] MEDS: zyPREXA 5MG TABLET PO SCH (21:42)
[2021-07-03] MEDS: Zosyn 3.375 GM Vial 3.375 GM in Sodium Chloride 100ML MINI-BAG PLUS 100 ML IV SCH ×3 (05:28→21:06)
[2021-07-03 06:00] LABS: Absolute Neutrophil Ct (ANC) 5.77 (1.4-6.9); BASOPHIL % 0.6 % (0.0-0.4); Basophil (Absolute #) 0.05 (0-0.4); Eosinophil % 7.7 % (0.00-5.0); Eosinophil (Absolute #) 0.65 (0-0.5); Hematocrit 37.2 % (35-47); Hemoglobin 10.9 gm/dl (12.0-16.0); Lymphocyte (Absolute #) 1.24 (1.0-4.6); Lymphocytes % 14.7 % (24.0-44.0); Mean Cell Volume 93.2 fl (78-100); Mean Corpuscular Hemoglobin 27.3 pg (26-32); Mean Corpuscular Hgb Concent. 29.3 g/dl (32-36); Monocyte (Absolute #) 0.75 (0.0-1.3); Monocytes % 8.9 % (0.0-12.0); Neutrophil % 68.1 % (36.0-66.0); Platelet Count 234 K/mm3 (150-450); Red Blood Count 3.99 M/mm3 (4.1-5.4); Red Cell Distribution Width 15.8 % (11.5-14.0); White Blood Count 8.5 K/mm3 (4.0-10.5)
[2021-07-03 06:14] LABS: ALBUMIN 3.4 g/dL (3.5-5.0); ANION GAP 6.1 MEQ/L (5-15); BILIRUBIN,TOTAL 0.7 mg/dL (0.2-1.3); Calcium 8.8 mg/dL (8.4-10.2); Creatinine 1 1.79 mg/dL (0.52-1.04); EST GLOMERULAR FILTRATION RATE 28.8 ML/MIN; MAGNESIUM 2.2 mg/dL (1.6-2.3); Potassium 3.7 mmol/L (3.5-5.1); Total Protein 6.5 g/dL (6.3-8.2)
[2021-07-03] MEDS: K-LYTE 25 MEQ PO SCH ×2 (10:30→21:06)
[2021-07-03] MEDS: Zithromax 500 MG/ 250 ML NaCl Premix 500 MG/250 ML IVPB IV SCH (10:30)
[2021-07-03] MEDS: FOLATE 1 MG PO SCH (10:30)
[2021-07-03] MEDS: Cozaar 50 MG PO SCH (10:30)
[2021-07-03] MEDS: ELIQUIS 2.5 MG TABLET PO SCH ×2 (10:31→21:06)
[2021-07-03] MEDS: Lexapro 10 MG PO SCH (10:31)
[2021-07-03] MEDS: Protonix 40MG Tablet PO SCH (10:31)
[2021-07-03] MEDS: ECOTRIN 81 MG PO SCH (10:31)
[2021-07-03] MEDS: NORVASC 5 MG PO SCH (10:31)
--- NOTE | 2021-07-03 10:32 | XRAY ---
Indication: Aspiration pneumonia. Comparison: June 30, 2021. Portable chest unchanged again demonstrating cardiomegaly, left pacemaker, arteriosclerotic/tortuous descending aorta, and bibasilar infiltrates/atelectasis. No new cardiopulmonary abnormalities.
[2021-07-03] MEDS: ZOCOR 20MG PO SCH (21:06)
[2021-07-03] MEDS: zyPREXA 5MG TABLET PO SCH (21:06)
[2021-07-04 05:59] LABS: Absolute Neutrophil Ct (ANC) 4.68 (1.4-6.9); BASOPHIL % 0.8 % (0.0-0.4); Basophil (Absolute #) 0.06 (0-0.4); Eosinophil % 9.9 % (0.00-5.0); Eosinophil (Absolute #) 0.74 (0-0.5); Hematocrit 40.6 % (35-47); Hemoglobin 11.9 gm/dl (12.0-16.0); Lymphocyte (Absolute #) 1.36 (1.0-4.6); Lymphocytes % 18.2 % (24.0-44.0); Mean Cell Volume 92.7 fl (78-100); Mean Corpuscular Hemoglobin 27.2 pg (26-32); Mean Corpuscular Hgb Concent. 29.3 g/dl (32-36); Mean Platelet Volume 10.2 fl (7.5-11.0); Monocyte (Absolute #) 0.62 (0.0-1.3); Monocytes % 8.3 % (0.0-12.0); Neutrophil % 62.8 % (36.0-66.0); Platelet Count 214 K/mm3 (150-450); Red Blood Count 4.38 M/mm3 (4.1-5.4); Red Cell Distribution Width 15.6 % (11.5-14.0); White Blood Count 7.5 K/mm3 (4.0-10.5)
[2021-07-04] MEDS: Zosyn 3.375 GM Vial 3.375 GM in Sodium Chloride 100ML MINI-BAG PLUS 100 ML IV SCH ×3 (06:10→23:30)
[2021-07-04 06:39] LABS: ALBUMIN 3.8 g/dL (3.5-5.0); ANION GAP 9.1 MEQ/L (5-15); BILIRUBIN,TOTAL 0.7 mg/dL (0.2-1.3); Calcium 9.2 mg/dL (8.4-10.2); Creatinine 1 1.61 mg/dL (0.52-1.04); EST GLOMERULAR FILTRATION RATE 32.6 ML/MIN; Potassium 3.8 mmol/L (3.5-5.1); Total Protein 7.2 g/dL (6.3-8.2)
[2021-07-04] MEDS: Lexapro 10 MG PO SCH (09:38)
[2021-07-04] MEDS: Protonix 40MG Tablet PO SCH (09:38)
[2021-07-04] MEDS: ELIQUIS 2.5 MG TABLET PO SCH ×2 (09:38→23:30)
[2021-07-04] MEDS: NORVASC 5 MG PO SCH (09:39)
[2021-07-04] MEDS: Cozaar 50 MG PO SCH (09:39)
[2021-07-04] MEDS: K-LYTE 25 MEQ PO SCH ×2 (09:39→23:30)
[2021-07-04] MEDS: Zithromax 500 MG/ 250 ML NaCl Premix 500 MG/250 ML IVPB IV SCH (09:39)
[2021-07-04] MEDS: ECOTRIN 81 MG PO SCH (09:39)
[2021-07-04] MEDS: FOLATE 1 MG PO SCH (09:39)
[2021-07-04] MEDS ORDERED: Dextrose 5% -0.45 NaCl 1000 ML 1,000 ML IV SCH (09:45)
[2021-07-04] MEDS: PROVENTIL 2.5 MG/3 ML NEB IH SCH ×3 (12:05→18:22)
--- NOTE | 2021-07-04 12:07 | PCM.NOTE ---
Date and Time: 07/04/21 1200 Subjective Assessment: Patient states she is very hungry. Will try again to use Oxymizer in place of Bipap. Patient denies any pain and no Hx chest pain but elevated troponin on admission. BNP wnl. IV fluids started D51/2 NS. Objective Exam General Appearance: mild distress (up in chair with Bipap on) Neurologic Exam: alert, oriented x 3 (a little anxious over not eating or drinking) Skin Exam: warm, dry, pale Respiratory Exam: crackles/rales (midright), rhonchi (right mid) Cardiovascular Exam: bradycardia (rate 60,regular) Gastrointestinal/Abdomen Exam: soft, normal bowel sounds (nontender) Extremity Exam: other (no pitting edema) OBJECTIVE DATA Vital Signs: Vital Signs - 24 hr Temp Pulse Resp BP Pulse Ox 07/04/21 08:19 91 L 07/04/21 08:00 98.4 F 60 16 144/75 95 07/04/21 04:00 98.6 F 60 16 155/74 94 L 07/04/21 00:00 97.4 F 60 19 156/83 100 07/03/21 20:00 98.0 F 67 16 139/80 100 07/03/21 18:45 95 07/03/21 16:00 97.1 F 62 21 149/72 100 Pain Assessment - Last Documented Pain Intensity 0 Intake and Output: Intake & Output 07/02/21 07/03/21 07/04/21 07/05/21 11:59 11:59 11:59 11:59 Intake Total 461 240 740 Output Total 2300 900 2050 Balance -1028 -685 -6255 Weight 93.1 kg 93 kg 91 kg Lab Results: Lab Results-Last 24 Hours 07/03/21 07/03/21 07/04/21 Range/Units 16:29 21:27 05:15 WBC 7.5 (4.0-10.5) K/mm3 RBC 4.38 (4.1-5.4) M/mm3 Hgb 11.9 L (12.0-16.0) gm/dl Hct 40.6 (35-47) % MCV 92.7 (78-100) fl MCH 27.2 (26-32) pg MCHC 29.3 L (32-36) g/dl RDW 15.6 H (11.5-14.0) % Plt Count 214 (150-450) K/mm3 MPV 10.2 (7.5-11.0) fl Gran % 62.8 (36.0-66.0) % Eos # (Auto) 0.74 H (0-0.5) Absolute Lymphs (auto) 1.36 (1.0-4.6) Absolute Monos (auto) 0.62 (0.0-1.3) Lymphocytes % 18.2 L (24.0-44.0) % Monocytes % 8.3 (0.0-12.0) % Eosinophils % 9.9 H (0.00-5.0) % Basophils % 0.8 (0.0-0.4) % Absolute Granulocytes 4.68 (1.4-6.9) Basophils # 0.06 (0-0.4) Sodium (137-145) mmol/L Potassium (3.5-5.1) mmol/L Chloride (98-107) mmol/L Carbon Dioxide (22-30) mmol/L Anion Gap (5-15) MEQ/L BUN (7-17) mg/dL Creatinine (0.52-1.04) mg/dL Estimated GFR ML/MIN Glucose (74-106) mg/dL POC Glucometer 107 H 93 (74 to 106) mg/dL Calcium (8.4-10.2) mg/dL Total Bilirubin (0.2-1.3) mg/dL AST (14-36) U/L ALT (0-35) U/L Alkaline Phosphatase (38-126) U/L Serum Total Protein (6.3-8.2) g/dL Albumin (3.5-5.0) g/dL 07/04/21 07/04/21 07/04/21 Range/Units 05:15 07:13 11:48 WBC (4.0-10.5) K/mm3 RBC (4.1-5.4) M/mm3 Hgb (12.0-16.0) gm/dl Hct (35-47) % MCV (78-100) fl MCH (26-32) pg MCHC (32-36) g/dl RDW (11.5-14.0) % Plt Count (150-450) K/mm3 MPV (7.5-11.0) fl Gran % (36.0-66.0) % Eos # (Auto) (0-0.5) Absolute Lymphs (auto) (1.0-4.6) Absolute Monos (auto) (0.0-1.3) Lymphocytes % (24.0-44.0) % Monocytes % (0.0-12.0) % Eosinophils % (0.00-5.0) % Basophils % (0.0-0.4) % Absolute Granulocytes (1.4-6.9) Basophils # (0-0.4) Sodium 142 (137-145) mmol/L Potassium 3.8 (3.5-5.1) mmol/L Chloride 108 H (98-107) mmol/L Carbon Dioxide 29 (22-30) mmol/L Anion Gap 9.1 (5-15) MEQ/L BUN 19 H (7-17) mg/dL Creatinine 1.61 H (0.52-1.04) mg/dL Estimated GFR 32.6 ML/MIN Glucose 104 (74-106) mg/dL POC Glucometer 100 125 H (74 to 106) mg/dL Calcium 9.2 (8.4-10.2) mg/dL Total Bilirubin 0.70 (0.2-1.3) mg/dL AST 37 H (14-36) U/L ALT 75 H (0-35) U/L Alkaline Phosphatase 213 H (38-126) U/L Serum Total Protein 7.2 (6.3-8.2) g/dL Albumin 3.8 (3.5-5.0) g/dL Radiology Exams: Radiology Procedures Category Date Time Status CHEST 1 VIEW (PORTABLE) Routine Exams 07/03/21 09:52 Completed Multi-Disciplinary Progress Notes: Multi-Disciplinary Progress Notes 07/03/21 14:46 Speech Therapy Note by Merly Mukherjee 07/03/21 AT 1446: PATIENT CONTINUES TO REQUIRE BIPAP AND IS UNABLE TO WEAN OFF OF BIPAP TO USE OF NASAL CANNULA AT THIS TIME. RECOMMEND CONTINUE NPO. RECOMMEND MBS STUDY BE COMPLETED PRIOR TO ORAL INTAKE, WHEN PATIENT IS ABLE TO COMPLETE EVALUATION. MS DEVEN, CCC/NEEDLE LEADER Initialized on 07/03/21 14:46 - END OF NOTE 07/03/21 12:22 Case Management Note by Jenny Sotelo Addendum entered by Jenny Sotelo 07/03/21 12:26: IF PATIENT NEEDS INCREASED OXYGEN AT HOME AT TIME OF DC- SHE WILL NEED QUALIFIED FOR THE INCREASED NEED Original Note: PATIENT STILL ACUTELY ILL AT THIS TIME. RT HAS BEEN UNABLE TO WEAN FROM BIPAP. PATIENT RESIDES WITH FAMILY AND HAS ALL OF THE NECESSARY MEDICAL EQUIPMENT AT HOME. SHE NORMALLY WEARS 3-4L OF OXYGEN AT HOME. THIS IS SET UP THRU [facility]. ORDER FORM WITH INSTRUCTIONS PLACED ON THE CHART IF OXYGEN DEMAND IS HIGH AT TIME OF DC. FAMILY WOULD LIKE [facility] AT TIME OF DC. WILL SET UP FOR THEM WHEN PATIENT CLOSER TO DC. DAUGHTER DENIED ANY OTHER NEEDS AT TIME OF DC Initialized on 07/03/21 12:22 - END OF NOTE Assessment/Plan (1) Pneumonia Current Visit: Yes Status: Acute Assessment & Plan: possible aspiration-added albuterol neb tx and try to wean off bipap to oximizer resp is with patient now,and tolerating Oximizer so trying ice chips. Code(s): J18.9 - PNEUMONIA, UNSPECIFIED ORGANISM (2) Elevated troponin Current Visit: Yes Status: Acute Assessment & Plan: asymptomatic -retesting Code(s): R77.8 - OTHER SPECIFIED ABNORMALITIES OF PLASMA PROTEINS (3) CHF (congestive heart failure) Current Visit: No Status: Acute Assessment & Plan: BNP normal = 300s on admission Code(s): I50.9 - HEART FAILURE, UNSPECIFIED (4) Chronic renal failure Current Visit: Yes Status: Chronic Qualifiers: Chronic kidney disease stage: stage 4 (severe) Qualified Code(s): N18.4 - Chronic kidney disease, stage 4 (severe) Assessment & Plan: monitor
[2021-07-04] MEDS ORDERED: PROVENTIL 2.5 MG/3 ML NEB IH ONE (12:10)
[2021-07-04] MEDS ORDERED: NITRO-DUR 0.2 MG/HR ONE (17:26)
[2021-07-04] MEDS: Apresoline 25 MG TABLET PO SCH (17:34)
[2021-07-04] MEDS: zyPREXA 5MG TABLET PO SCH (23:29)
[2021-07-04] MEDS: ZOCOR 20MG PO SCH (23:30)
[2021-07-05] MEDS: Dextrose 5% -0.45 NaCl 1000 ML 1,000 ML IV SCH ×3 (02:26→22:22)
[2021-07-05 06:06] LABS: BASOPHIL % 0.5 % (0.0-0.4); Basophil (Absolute #) 0.04 (0-0.4); Eosinophil % 7.4 % (0.00-5.0); Eosinophil (Absolute #) 0.56 (0-0.5); Hemoglobin 10.5 gm/dl (12.0-16.0); Lymphocyte (Absolute #) 1.09 (1.0-4.6); Lymphocytes % 14.5 % (24.0-44.0); Mean Cell Volume 95.4 fl (78-100); Mean Corpuscular Hemoglobin 27.1 pg (26-32); Mean Corpuscular Hgb Concent. 28.4 g/dl (32-36); Monocyte (Absolute #) 0.64 (0.0-1.3); Monocytes % 8.5 % (0.0-12.0); Neutrophil % 69.1 % (36.0-66.0); Platelet Count 202 K/mm3 (150-450); Red Blood Count 3.88 M/mm3 (4.1-5.4); Red Cell Distribution Width 15.5 % (11.5-14.0); White Blood Count 7.5 K/mm3 (4.0-10.5)
[2021-07-05 06:35] LABS: ANION GAP 10.1 MEQ/L (5-15); Calcium 8.5 mg/dL (8.4-10.2); Creatinine 1 1.42 mg/dL (0.52-1.04); EST GLOMERULAR FILTRATION RATE 37.6 ML/MIN; Potassium 3.5 mmol/L (3.5-5.1)
[2021-07-05] MEDS: Zosyn 3.375 GM Vial 3.375 GM in Sodium Chloride 100ML MINI-BAG PLUS 100 ML IV SCH (06:58)
[2021-07-05] MEDS: PROVENTIL 2.5 MG/3 ML NEB IH SCH ×4 (07:30→20:58)
[2021-07-05] MEDS ORDERED: NITRO-DUR 0.2 MG/HR TD SCH (08:00)
[2021-07-05 10:50] LABS: Slide Review 1 YES
[2021-07-05] MEDS: K-LYTE 25 MEQ PO SCH ×2 (14:48→22:03)
[2021-07-05] MEDS: NORVASC 5 MG PO SCH (14:49)
[2021-07-05] MEDS: FOLATE 1 MG PO SCH (14:49)
[2021-07-05] MEDS: ECOTRIN 81 MG PO SCH (14:49)
[2021-07-05] MEDS: Protonix 40MG Tablet PO SCH (14:49)
[2021-07-05] MEDS: Lexapro 10 MG PO SCH (14:49)
[2021-07-05] MEDS: ELIQUIS 2.5 MG TABLET PO SCH ×2 (14:49→22:03)
[2021-07-05] MEDS: Cozaar 50 MG PO SCH (14:49)
[2021-07-05] MEDS: NITRO-DUR 0.2 MG/HR TD SCH (14:50)
[2021-07-05] MEDS ORDERED: NITRO-DUR 0.2 MG/HR TD ONE (17:07)
[2021-07-05] MEDS: zyPREXA 5MG TABLET PO SCH (22:03)
[2021-07-05] MEDS: ZOCOR 20MG PO SCH (22:03)
[2021-07-05] MEDS: HUMALOG SQ PRN (22:40)
[2021-07-06 06:30] LABS: Absolute Neutrophil Ct (ANC) 4.47 (1.4-6.9); BASOPHIL % 0.6 % (0.0-0.4); Basophil (Absolute #) 0.04 (0-0.4); Eosinophil % 7.9 % (0.00-5.0); Eosinophil (Absolute #) 0.54 (0-0.5); Hematocrit 37.6 % (35-47); Hemoglobin 11.1 gm/dl (12.0-16.0); Lymphocyte (Absolute #) 1.22 (1.0-4.6); Lymphocytes % 17.8 % (24.0-44.0); Mean Cell Volume 92.4 fl (78-100); Mean Corpuscular Hemoglobin 27.3 pg (26-32); Mean Corpuscular Hgb Concent. 29.5 g/dl (32-36); Monocytes % 8.7 % (0.0-12.0); Platelet Count 188 K/mm3 (150-450); Red Blood Count 4.07 M/mm3 (4.1-5.4); Red Cell Distribution Width 15.5 % (11.5-14.0); White Blood Count 6.9 K/mm3 (4.0-10.5)
[2021-07-06 07:00] LABS: ANION GAP 8.7 MEQ/L (5-15); Calcium 8.8 mg/dL (8.4-10.2); Creatinine 1 1.42 mg/dL (0.52-1.04); EST GLOMERULAR FILTRATION RATE 37.6 ML/MIN; Potassium 3.7 mmol/L (3.5-5.1)
[2021-07-06] MEDS: PROVENTIL 2.5 MG/3 ML NEB IH SCH ×4 (07:24→18:15)
[2021-07-06] MEDS: Dextrose 5% -0.45 NaCl 1000 ML 1,000 ML IV SCH ×2 (08:26→18:24)
[2021-07-06] MEDS: Protonix 40MG Tablet PO SCH (09:08)
[2021-07-06] MEDS: FOLATE 1 MG PO SCH (09:08)
[2021-07-06] MEDS: Cozaar 50 MG PO SCH (09:08)
[2021-07-06] MEDS: Lexapro 10 MG PO SCH (09:09)
[2021-07-06] MEDS: ECOTRIN 81 MG PO SCH (09:09)
[2021-07-06] MEDS: ELIQUIS 2.5 MG TABLET PO SCH ×2 (09:09→22:21)
[2021-07-06] MEDS: NORVASC 5 MG PO SCH (09:09)
[2021-07-06] MEDS: NITRO-DUR 0.2 MG/HR TD SCH (09:10)
[2021-07-06] MEDS: K-LYTE 25 MEQ PO SCH ×2 (09:11→22:21)
[2021-07-06] MEDS: HUMALOG SQ PRN ×3 (12:34→22:49)
[2021-07-06] MEDS: ZOCOR 20MG PO SCH (22:21)
[2021-07-06] MEDS: zyPREXA 5MG TABLET PO SCH (22:21)
[2021-07-07] MEDS: Dextrose 5% -0.45 NaCl 1000 ML 1,000 ML IV SCH ×2 (04:42→14:50)
[2021-07-07 06:52] LABS: Potassium 3.8 mmol/L (3.5-5.1)
[2021-07-07 06:53] LABS: Calcium 9.1 mg/dL (8.4-10.2); Creatinine 1 1.38 mg/dL (0.52-1.04); EST GLOMERULAR FILTRATION RATE 38.9 ML/MIN
[2021-07-07] MEDS: PROVENTIL 2.5 MG/3 ML NEB IH SCH ×4 (06:53→19:13)
[2021-07-07 07:07] LABS: ANION GAP 11.8 MEQ/L (5-15)
[2021-07-07 07:14] LABS: Absolute Neutrophil Ct (ANC) 4.21 (1.4-6.9); BASOPHIL % 0.7 % (0.0-0.4); Basophil (Absolute #) 0.05 (0-0.4); Eosinophil % 9.6 % (0.00-5.0); Eosinophil (Absolute #) 0.66 (0-0.5); Hematocrit 38.1 % (35-47); Hemoglobin 11.2 gm/dl (12.0-16.0); Lymphocyte (Absolute #) 1.32 (1.0-4.6); Lymphocytes % 19.2 % (24.0-44.0); Mean Cell Volume 92.3 fl (78-100); Mean Corpuscular Hemoglobin 27.1 pg (26-32); Mean Corpuscular Hgb Concent. 29.4 g/dl (32-36); Mean Platelet Volume 10.6 fl (7.5-11.0); Monocyte (Absolute #) 0.64 (0.0-1.3); Monocytes % 9.3 % (0.0-12.0); Neutrophil % 61.2 % (36.0-66.0); Platelet Count 202 K/mm3 (150-450); Red Blood Count 4.13 M/mm3 (4.1-5.4); Red Cell Distribution Width 15.2 % (11.5-14.0); White Blood Count 6.9 K/mm3 (4.0-10.5)
--- NOTE | 2021-07-07 08:53 | PCM.NOTE ---
Date and Time: 07/07/21 0851 Subjective Assessment: patient still requiring oxymizer today, no new concerns. states she is feeling better, she is on oxymizer, conversant Objective Exam General Appearance: no apparent distress, alert Respiratory Exam: rhonchi Cardiovascular Exam: regular rate/rhythm, normal heart sounds Gastrointestinal/Abdomen Exam: soft, No tenderness, No mass Extremity Exam: normal inspection, normal range of motion OBJECTIVE DATA Vital Signs: Vital Signs - 24 hr Temp Pulse Resp BP Pulse Ox 07/07/21 06:56 62 18 92 L 07/07/21 04:00 97.3 F 60 22 179/86 91 L 07/07/21 00:00 97.5 F 60 20 174/88 99 07/06/21 20:24 93 L 07/06/21 20:00 97.8 F 61 18 148/69 93 L 07/06/21 19:20 60 22 97 07/06/21 16:00 97.5 F 61 22 135/73 95 07/06/21 14:51 63 24 93 L 07/06/21 12:00 97.1 F 60 23 139/75 07/06/21 10:50 73 22 96 Pain Assessment - Last Documented Pain Intensity 0 Intake and Output: Intake & Output 07/04/21 07/05/21 07/06/21 07/07/21 11:59 11:59 11:59 11:59 Intake Total 740 2550 1922 1754 Output Total 2050 1000 2300 3100 Balance -1310 1550 -378 -1346 Weight 91 kg 91.2 kg 92.4 kg 95 kg Lab Results: Lab Results-Last 24 Hours 07/06/21 07/06/21 07/06/21 Range/Units 11:57 12:06 16:40 WBC (4.0-10.5) K/mm3 RBC (4.1-5.4) M/mm3 Hgb (12.0-16.0) gm/dl Hct (35-47) % MCV (78-100) fl MCH (26-32) pg MCHC (32-36) g/dl RDW (11.5-14.0) % Plt Count (150-450) K/mm3 MPV (7.5-11.0) fl Gran % (36.0-66.0) % Eos # (Auto) (0-0.5) Absolute Lymphs (auto) (1.0-4.6) Absolute Monos (auto) (0.0-1.3) Lymphocytes % (24.0-44.0) % Monocytes % (0.0-12.0) % Eosinophils % (0.00-5.0) % Basophils % (0.0-0.4) % Absolute Granulocytes (1.4-6.9) Basophils # (0-0.4) Sodium (137-145) mmol/L Potassium (3.5-5.1) mmol/L Chloride (98-107) mmol/L Carbon Dioxide (22-30) mmol/L Anion Gap (5-15) MEQ/L BUN (7-17) mg/dL Creatinine (0.52-1.04) mg/dL Estimated GFR ML/MIN Glucose (74-106) mg/dL POC Glucometer 320 H 268 H 274 H (74 to 106) mg/dL Calcium (8.4-10.2) mg/dL NT-Pro-B Natriuret Pep (0-1800) pg/mL 07/06/21 07/07/21 07/07/21 Range/Units 22:45 05:00 05:00 WBC 6.9 (4.0-10.5) K/mm3 RBC 4.13 (4.1-5.4) M/mm3 Hgb 11.2 L (12.0-16.0) gm/dl Hct 38.1 (35-47) % MCV 92.3 (78-100) fl MCH 27.1 (26-32) pg MCHC 29.4 L (32-36) g/dl RDW 15.2 H (11.5-14.0) % Plt Count 202 (150-450) K/mm3 MPV 10.6 (7.5-11.0) fl Gran % 61.2 (36.0-66.0) % Eos # (Auto) 0.66 H (0-0.5) Absolute Lymphs (auto) 1.32 (1.0-4.6) Absolute Monos (auto) 0.64 (0.0-1.3) Lymphocytes % 19.2 L (24.0-44.0) % Monocytes % 9.3 (0.0-12.0) % Eosinophils % 9.6 H (0.00-5.0) % Basophils % 0.7 (0.0-0.4) % Absolute Granulocytes 4.21 (1.4-6.9) Basophils # 0.05 (0-0.4) Sodium 142 (137-145) mmol/L Potassium 3.8 (3.5-5.1) mmol/L Chloride 104 (98-107) mmol/L Carbon Dioxide 30 (22-30) mmol/L Anion Gap 11.8 (5-15) MEQ/L BUN 10 (7-17) mg/dL Creatinine 1.38 H (0.52-1.04) mg/dL Estimated GFR 38.9 ML/MIN Glucose 245 H (74-106) mg/dL POC Glucometer 268 H (74 to 106) mg/dL Calcium 9.1 (8.4-10.2) mg/dL NT-Pro-B Natriuret Pep 959 (0-1800) pg/mL 07/07/21 Range/Units 07:48 WBC (4.0-10.5) K/mm3 RBC (4.1-5.4) M/mm3 Hgb (12.0-16.0) gm/dl Hct (35-47) % MCV (78-100) fl MCH (26-32) pg MCHC (32-36) g/dl RDW (11.5-14.0) % Plt Count (150-450) K/mm3 MPV (7.5-11.0) fl Gran % (36.0-66.0) % Eos # (Auto) (0-0.5) Absolute Lymphs (auto) (1.0-4.6) Absolute Monos (auto) (0.0-1.3) Lymphocytes % (24.0-44.0) % Monocytes % (0.0-12.0) % Eosinophils % (0.00-5.0) % Basophils % (0.0-0.4) % Absolute Granulocytes (1.4-6.9) Basophils # (0-0.4) Sodium (137-145) mmol/L Potassium (3.5-5.1) mmol/L Chloride (98-107) mmol/L Carbon Dioxide (22-30) mmol/L Anion Gap (5-15) MEQ/L BUN (7-17) mg/dL Creatinine (0.52-1.04) mg/dL Estimated GFR ML/MIN Glucose (74-106) mg/dL POC Glucometer 225 H (74 to 106) mg/dL Calcium (8.4-10.2) mg/dL NT-Pro-B Natriuret Pep (0-1800) pg/mL Radiology Exams: Radiology Procedures Category Date Time Status CHEST 1 VIEW (PORTABLE) Routine Exams 07/07/21 08:50 Ordered Multi-Disciplinary Progress Notes: Multi-Disciplinary Progress Notes 07/06/21 22:34 Nutrition Note by Sara Moreno F/u note: Pureed diet with HTL con't with 100% po intake. Labs 07/06= Cr 1.43, glu 274, hgb 11.1. adm weight 93kg; current weight 92.4kg. Note ST unable to complete swallow study. Will con't to monitor and f/u prn. T.MS JoshRDCD Initialized on 07/06/21 22:34 - END OF NOTE 07/06/21 13:12 Respiratory Note by Sol White O2 SAT 96% ON 10LPM OXYMIZER. DECREASED TO 6LPM OXYMIZER Initialized on 07/06/21 13:12 - END OF NOTE Assessment/Plan (1) Aspiration pneumonia Current Visit: Yes Status: Acute Qualifiers: Laterality: left Lung location: lower lobe of lung Assessment & Plan: restart zosyn, still requiring oxymizer, clinically improved and tolerating a pureed diet. Code(s): J69.0 - PNEUMONITIS DUE TO INHALATION OF FOOD AND VOMIT (2) Chronic renal failure Current Visit: Yes Status: Chronic Qualifiers: Chronic kidney disease stage: stage 4 (severe) Qualified Code(s): N18.4 - Chronic kidney disease, stage 4 (severe) (3) CHF (congestive heart failure) Current Visit: No Status: Acute Code(s): I50.9 - HEART FAILURE, UNSPECIFIED (4) Chronic hypoxemic respiratory failure Current Visit: No Status: Acute (5) Alzheimer's dementia with behavioral disturbance Current Visit: No Status: Chronic Code(s): G30.9 - ALZHEIMER'S DISEASE, UNSPECIFIED; F02.81 - DEMENTIA IN OTH DISEASES CLASSD ELSWHR W BEHAVIORAL DISTURB
[2021-07-07] MEDS: HUMALOG SQ PRN ×4 (10:23→22:19)
[2021-07-07] MEDS: ECOTRIN 81 MG PO SCH (10:24)
[2021-07-07] MEDS: Cozaar 50 MG PO SCH (10:24)
[2021-07-07] MEDS: Protonix 40MG Tablet PO SCH (10:24)
[2021-07-07] MEDS: ELIQUIS 2.5 MG TABLET PO SCH ×2 (10:24→21:07)
[2021-07-07] MEDS: Lexapro 10 MG PO SCH (10:24)
[2021-07-07] MEDS: NORVASC 5 MG PO SCH (10:24)
[2021-07-07] MEDS: K-LYTE 25 MEQ PO SCH ×2 (10:24→21:07)
[2021-07-07] MEDS: NITRO-DUR 0.2 MG/HR TD SCH (10:25)
[2021-07-07] MEDS: FOLATE 1 MG PO SCH (10:25)
[2021-07-07] MEDS: Zosyn 3.375 GM Vial 3.375 GM in Sodium Chloride 100ML MINI-BAG PLUS 100 ML IV SCH ×2 (12:39→18:41)
[2021-07-07] MEDS: Apresoline 25 MG TABLET PO SCH (12:39)
[2021-07-07] MEDS ORDERED: Apresoline 25 MG TABLET PO PRN (12:43)
--- NOTE | 2021-07-07 14:03 | XRAY ---
Indication: Aspiration. Comparison: July 03, 2021. Portable chest better inflated again with bibasilar infiltrates/atelectasis, improved on the left and unchanged on the right. 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 No new cardiopulmonary abnormalities.
[2021-07-07] MEDS: PATIENT OWN MEDICATION IH SCH (14:25)
[2021-07-07] MEDS ORDERED: HUMALOG SQ PRN (15:46)
[2021-07-07] MEDS: zyPREXA 5MG TABLET PO SCH (21:07)
[2021-07-07] MEDS: ZOCOR 20MG PO SCH (21:07)
[2021-07-08] MEDS: PROVENTIL 2.5 MG/3 ML NEB IH SCH ×2 (05:45→11:15)
[2021-07-08 06:07] LABS: Absolute Neutrophil Ct (ANC) 5.04 (1.4-6.9); BASOPHIL % 0.7 % (0.0-0.4); Basophil (Absolute #) 0.05 (0-0.4); Eosinophil % 7.7 % (0.00-5.0); Eosinophil (Absolute #) 0.58 (0-0.5); Hemoglobin 10.9 gm/dl (12.0-16.0); Lymphocyte (Absolute #) 1.24 (1.0-4.6); Lymphocytes % 16.5 % (24.0-44.0); Mean Cell Volume 93.2 fl (78-100); Mean Corpuscular Hemoglobin 27.5 pg (26-32); Mean Corpuscular Hgb Concent. 29.5 g/dl (32-36); Mean Platelet Volume 10.5 fl (7.5-11.0); Monocyte (Absolute #) 0.59 (0.0-1.3); Monocytes % 7.9 % (0.0-12.0); Neutrophil % 67.2 % (36.0-66.0); Platelet Count 205 K/mm3 (150-450); Red Blood Count 3.97 M/mm3 (4.1-5.4); Red Cell Distribution Width 15.4 % (11.5-14.0); White Blood Count 7.5 K/mm3 (4.0-10.5)
[2021-07-08 06:21] LABS: ANION GAP 11.8 MEQ/L (5-15); Calcium 9.1 mg/dL (8.4-10.2); Creatinine 1 2.05 mg/dL (0.52-1.04); EST GLOMERULAR FILTRATION RATE 24.6 ML/MIN; MAGNESIUM 1.9 mg/dL (1.6-2.3); Potassium 4.4 mmol/L (3.5-5.1)
[2021-07-08] MEDS: Zosyn 3.375 GM Vial 3.375 GM in Sodium Chloride 100ML MINI-BAG PLUS 100 ML IV SCH ×3 (06:22)
[2021-07-08] MEDS ORDERED: Lantus Insulin SQ SCH (10:00)
[2021-07-08] MEDS: FOLATE 1 MG PO SCH (10:18)
[2021-07-08] MEDS: NORVASC 5 MG PO SCH (10:18)
[2021-07-08] MEDS: K-LYTE 25 MEQ PO SCH (10:18)
[2021-07-08] MEDS: ECOTRIN 81 MG PO SCH (10:18)
[2021-07-08] MEDS: ELIQUIS 2.5 MG TABLET PO SCH (10:18)
[2021-07-08] MEDS: Lexapro 10 MG PO SCH (10:18)
[2021-07-08] MEDS: NITRO-DUR 0.2 MG/HR TD SCH (10:18)
[2021-07-08] MEDS: Cozaar 50 MG PO SCH (10:18)
[2021-07-08] MEDS: Protonix 40MG Tablet PO SCH (10:18)
--- NOTE | 2021-07-08 10:32 | PCM.DS ---
Discharge Summary Date of Admission: 07/01/21 08:00 Admitting Physician: JANNETTE YADAV Primary Care Provider: JANNETTE YADAV Allergies Allergies carvedilol Allergy (Verified 03/22/21 11:52) Hospital Summary - Hospital Course Hospital Course: patient was admitted for possible aspiration, treated with zosyn. tolerating pureed diet with no issues, appears back to her baseline and chest xray is clearing. clinically at her baseline, cared for at home by her family. - Vitals & Intake/Output Vital Signs: Vital Signs Temperature 98.1 F 07/08/21 08:00 Pulse Rate 64 07/08/21 08:00 Respiratory Rate 18 07/08/21 08:00 Blood Pressure 152/71 07/08/21 08:00 O2 Sat by Pulse Oximetry 99 07/08/21 08:00 Intake & Output: Intake & Output 07/05/21 07/06/21 07/07/21 07/08/21 11:59 11:59 11:59 11:59 Intake Total 2550 1922 1774 1855 Output Total 1000 2300 4900 1675 Balance 1550 -378 -3126 180 Weight 91.2 kg 92.4 kg 95 kg 92 kg - Lab Result Diagrams: 07/08/21 05:10 07/08/21 05:10 Lab Results-Last 24 Hrs: Lab Results-Last 24 Hours 07/07/21 07/07/21 07/07/21 Range/Units 11:35 15:10 16:35 WBC (4.0-10.5) K/mm3 RBC (4.1-5.4) M/mm3 Hgb (12.0-16.0) gm/dl Hct (35-47) % MCV (78-100) fl MCH (26-32) pg MCHC (32-36) g/dl RDW (11.5-14.0) % Plt Count (150-450) K/mm3 MPV (7.5-11.0) fl Gran % (36.0-66.0) % Eos # (Auto) (0-0.5) Absolute Lymphs (auto) (1.0-4.6) Absolute Monos (auto) (0.0-1.3) Lymphocytes % (24.0-44.0) % Monocytes % (0.0-12.0) % Eosinophils % (0.00-5.0) % Basophils % (0.0-0.4) % Absolute Granulocytes (1.4-6.9) Basophils # (0-0.4) Sodium (137-145) mmol/L Potassium (3.5-5.1) mmol/L Chloride (98-107) mmol/L Carbon Dioxide (22-30) mmol/L Anion Gap (5-15) MEQ/L BUN (7-17) mg/dL Creatinine (0.52-1.04) mg/dL Estimated GFR ML/MIN Glucose (74-106) mg/dL POC Glucometer 320 H 297 H 302 H (74 to 106) mg/dL Calcium (8.4-10.2) mg/dL Magnesium (1.6-2.3) mg/dL 07/07/21 07/08/21 07/08/21 Range/Units 21:17 05:10 05:10 WBC 7.5 (4.0-10.5) K/mm3 RBC 3.97 L (4.1-5.4) M/mm3 Hgb 10.9 L (12.0-16.0) gm/dl Hct 37.0 (35-47) % MCV 93.2 (78-100) fl MCH 27.5 (26-32) pg MCHC 29.5 L (32-36) g/dl RDW 15.4 H (11.5-14.0) % Plt Count 205 (150-450) K/mm3 MPV 10.5 (7.5-11.0) fl Gran % 67.2 H (36.0-66.0) % Eos # (Auto) 0.58 H (0-0.5) Absolute Lymphs (auto) 1.24 (1.0-4.6) Absolute Monos (auto) 0.59 (0.0-1.3) Lymphocytes % 16.5 L (24.0-44.0) % Monocytes % 7.9 (0.0-12.0) % Eosinophils % 7.7 H (0.00-5.0) % Basophils % 0.7 (0.0-0.4) % Absolute Granulocytes 5.04 (1.4-6.9) Basophils # 0.05 (0-0.4) Sodium 143 (137-145) mmol/L Potassium 4.4 (3.5-5.1) mmol/L Chloride 105 (98-107) mmol/L Carbon Dioxide 31 H (22-30) mmol/L Anion Gap 11.8 (5-15) MEQ/L BUN 16 (7-17) mg/dL Creatinine 2.05 H (0.52-1.04) mg/dL Estimated GFR 24.6 ML/MIN Glucose 170 H (74-106) mg/dL POC Glucometer 205 H (74 to 106) mg/dL Calcium 9.1 (8.4-10.2) mg/dL Magnesium 1.9 (1.6-2.3) mg/dL 07/08/21 Range/Units 07:00 WBC (4.0-10.5) K/mm3 RBC (4.1-5.4) M/mm3 Hgb (12.0-16.0) gm/dl Hct (35-47) % MCV (78-100) fl MCH (26-32) pg MCHC (32-36) g/dl RDW (11.5-14.0) % Plt Count (150-450) K/mm3 MPV (7.5-11.0) fl Gran % (36.0-66.0) % Eos # (Auto) (0-0.5) Absolute Lymphs (auto) (1.0-4.6) Absolute Monos (auto) (0.0-1.3) Lymphocytes % (24.0-44.0) % Monocytes % (0.0-12.0) % Eosinophils % (0.00-5.0) % Basophils % (0.0-0.4) % Absolute Granulocytes (1.4-6.9) Basophils # (0-0.4) Sodium (137-145) mmol/L Potassium (3.5-5.1) mmol/L Chloride (98-107) mmol/L Carbon Dioxide (22-30) mmol/L Anion Gap (5-15) MEQ/L BUN (7-17) mg/dL Creatinine (0.52-1.04) mg/dL Estimated GFR ML/MIN Glucose (74-106) mg/dL POC Glucometer 150 H (74 to 106) mg/dL Calcium (8.4-10.2) mg/dL Magnesium (1.6-2.3) mg/dL Micro Results-Entire Visit: Microbiology 06/30/21 18:15 Blood Culture Gram Stain - Final Blood Not Reportable Blood Culture - Final NO GROWTH 06/30/21 18:55 Urine Culture - Final Catherized NO GROWTH Accuchecks Date 07/07/21 Date 07/07/21 Date 07/07/21 Time 22:18 Time 16:30 Time 11:30 - Radiology Exams Ordered Rad Exams-Entire Visit: Radiology Procedures Category Date Time Status CHEST 1 VIEW (PORTABLE) Routine Exams 07/07/21 08:50 Completed - Procedures and Test Procedures and Tests throughout Hospitalization: Therapy Orders & Screens 06/30/21 18:32 BiPap/CPAP ROUTINE Comment: 06/30/21 21:15 Respiratory Therapy Consult ROUTINE Comment: Reason For Exam: Diagnosis: Pneumonia 07/01/21 03:21 RT Screen per Nursing Assess ONCE Comment: Protocol Order Physician Instructions: Greater than 3 points order RT Admission Screen Reason For Exam: Triggered on Admission Diagnosis: Pneumonia Diagnosis: Pneumonia Pneumonia: Yes Home O2: Yes Asthma: No CHF: Yes Home CPAP/BIPAP: Yes Home Nebs/MDI: No Total Points: 16 07/01/21 06:00 Oxygen Nasal Cannula 4 lpm Comment: Diagnosis: Pneumonia 07/01/21 08:48 Speech Therapy Eval & Treat [ Eval & Dami (MD Order)] .as ordered Comment: Physician Instructions: Reason For Exam: Evaluate: aspiration Treat: Yes Reason for Eval: pt observed gulping liquids by RN Diagnosis: Pneumonia 07/04/21 12:25 Respiratory Therapy Assessment DAILY Comment: Diagnosis: ASPIRATION PNEUMONIA 07/07/21 07:00 Respiratory MDI UD Comment: Trelegy Daily Diagnosis: ASPIRATION PNEUMONIA 07/08/21 08:35 PT Eval & Treat (MD Order) ONCE Reason for Eval:: evaluate patient level of functioning Diagnosis: ASPIRATION PNEUMONIA Discharge Exam General Appearance: no apparent distress, other (hard of hearing) Neurologic Exam: alert, cooperative Respiratory Exam: prolonged expirations, No accessory muscle use, No crackles/rales, No rhonchi Cardiovascular Exam: regular rate/rhythm, normal heart sounds Gastrointestinal/Abdomen Exam: soft, No tenderness, No mass Extremity Exam: normal inspection, normal range of motion Skin Exam: normal color, warm, dry Final Diagnosis/Problem List - Final Discharge Diagnosis/Problem (1) Aspiration pneumonia Current Visit: Yes Status: Acute Assessment & Plan: resolved, no further treatment required, patient is in poor overall health and appears back to her baseline. family is very reasonable, attempted to call daughter Glenna to update but no answer and voicemail is full. will release to home today. Code(s): J69.0 - PNEUMONITIS DUE TO INHALATION OF FOOD AND VOMIT (2) Chronic renal failure Current Visit: Yes Status: Chronic Assessment & Plan: d/c zosyn, push fluids at home and will followup as an outpatient. (3) CHF (congestive heart failure) Current Visit: No Status: Acute Code(s): I50.9 - HEART FAILURE, UNSPECIFIED (4) Chronic hypoxemic respiratory failure Current Visit: No Status: Acute (5) Alzheimer's dementia with behavioral disturbance Current Visit: No Status: Chronic Code(s): G30.9 - ALZHEIMER'S DISEASE, UNSPECIFIED; F02.81 - DEMENTIA IN OTH DISEASES CLASSD ELSWHR W BEHAVIORAL DISTURB - Discharge Disposition: Home, Self-Care Condition: Critical Prescriptions: Continue Apixaban [Eliquis 5 mg Tablet] 2.5 mg PO BID Bumetanide 1 mg [Bumex 1 mg] 1 mg PO DAILY Memantine HCl 5 mg PO QHS PANTOPRAZOLE 40 mg Tablet [Protonix 40MG Tablet] 40 mg PO DAILY Losartan Potassium [Cozaar] 100 mg PO DAILY Folic Acid 1 mg [Folate 1 mg] 1 mg PO DAILY Donepezil HCl [Aricept] 5 mg PO DAILY Amlodipine Besylate 5 mg [Norvasc 5 mg] 5 mg PO DAILY Atorvastatin Calcium 40 mg PO HS Nitroglycerin 0.4 mg Tablet [Nitrostat 0.4 MG Tablet] 1 tablet SL UD PRN PRN Reason: Chest Pain OLANZapine [Olanzapine] 10 mg PO HS Insulin Glargine,Hum.rec.anlog [Lantus] 1 unit SQ UD Escitalopram Oxalate 10 mg [Lexapro 10 MG] 10 mg PO DAILY Aspirin 81 gm Chew [Baby Aspirin 81 mg Chew] 81 mg PO DAILY Cholecalciferol (Vitamin D3) [Vitamin D3] 10,000 unit PO WEEKLY Insulin Lispro [Humalog] 1 unit SQ UD Potassium Chloride 7.5 ml PO BID Fluticasone/Umeclidin/Vilanter [Trelegy Ellipta 100-62.5-25] 1 puff IH DAILY Follow up with: JANNETTE YADAV MD [Primary Care Provider] -
[2021-07-08] MEDS: PATIENT OWN MEDICATION IH SCH (11:15)
[2021-07-08 11:58] VITALS: BP 133/75; PULSE 65; O2SAT 98
[2021-07-08] MEDS ORDERED: Zosyn 2.25 GM 2.25 GM in Sodium Chloride 100ML MINI-BAG PLUS 100 ML IV SCH (12:00)
== END 2021-07-08 14:16 | disposition home or self-care (01) | DRG 178 ==
LOC: ED 17:51 → MED SURG 07-01 01:00 → OBSVTOIN 07-01 08:00 → MED SURG 07-02 08:24
PROVIDERS: ADMIT Family Medicine; ATTEND Family Medicine
DX: J69.0 Pneumonitis due to inhalation of food and vomit (principal); N18.4 Chronic kidney disease, stage 4 (severe); J96.11 Chronic respiratory failure with hypoxia; F02.81 Dementia in other diseases classified elsewhere, unspecified severity, with behavioral disturbance; I13.0 Hypertensive heart and chronic kidney disease with heart failure and stage 1 through stage 4 chronic kidney disease, or unspecified chronic kidney disease; I50.9 Heart failure, unspecified; G30.9 Alzheimer's disease, unspecified; J44.9 Chronic obstructive pulmonary disease, unspecified; R77.8 Other specified abnormalities of plasma proteins; Z79.899 Other long term (current) drug therapy; Z20.828 Contact with and (suspected) exposure to other viral communicable diseases; E11.22 Type 2 diabetes mellitus with diabetic chronic kidney disease
CPT/HCPCS: 0241U; 36415; 36600; 51702; 71045; 71250; 80048; 80053; 81001; 82375; 82803; 82947; 83036; 83605; 83735; 83880; 84484; 85025; 85610; 85730; 87040; 87086; 93005; 94002; 94003; 94640; 94762; 96365; 97161; 99285; 99291; J0456; J0696; J1817; J7609; A9270-GY

== ENCOUNTER 2021-07-09 16:44 | Observation (INO) | payer MEDICARE, OTHER ==
[2021-07-09 18:05] LABS: Absolute Neutrophil Ct (ANC) 5.72 (1.4-6.9); Basophil (Absolute #) 0.08 (0-0.4); Eosinophil % 6.6 % (0.00-5.0); Eosinophil (Absolute #) 0.56 (0-0.5); Hematocrit 39.2 % (35-47); Hemoglobin 11.6 gm/dl (12.0-16.0); Lymphocyte (Absolute #) 1.46 (1.0-4.6); Lymphocytes % 17.2 % (24.0-44.0); Mean Cell Volume 92.2 fl (78-100); Mean Corpuscular Hemoglobin 27.3 pg (26-32); Mean Corpuscular Hgb Concent. 29.6 g/dl (32-36); Mean Platelet Volume 10.2 fl (7.5-11.0); Monocyte (Absolute #) 0.68 (0.0-1.3); Neutrophil % 67.3 % (36.0-66.0); Platelet Count 204 K/mm3 (150-450); Red Blood Count 4.25 M/mm3 (4.1-5.4); Red Cell Distribution Width 15.4 % (11.5-14.0); White Blood Count 8.5 K/mm3 (4.0-10.5)
[2021-07-09 18:15] LABS: ALBUMIN 3.7 g/dL (3.5-5.0); ANION GAP 11.7 MEQ/L (5-15); BILIRUBIN,TOTAL 0.5 mg/dL (0.2-1.3); Calcium 9.7 mg/dL (8.4-10.2); Creatinine 1 1.85 mg/dL (0.52-1.04); EST GLOMERULAR FILTRATION RATE 27.7 ML/MIN; Potassium 4.1 mmol/L (3.5-5.1); Total Protein 6.8 g/dL (6.3-8.2)
--- NOTE | 2021-07-09 20:30 | ERPHSYRPT ---
- History of Present Illness Time Seen by Provider: 07/09/21 17:00 Source: patient, family, EMS Exam Limitations: clinical condition Patient Subjective Stated Complaint: Ems states "When we got to the house they had her on a NC at 15 lpm and family said they did not have enough oxygen for her and that she needed more care." Triage Nursing Assessment: Pt presented alert and oriented X 3, skin pwd pt able to speak in clear full sentences pt tachypneic, closes eyes when left alone and is sleepy. Pt extremely hard of hearing. Physician History: This is an 81-year-old obese white female patient of Dr. Yadav who has Al zheimer's dementia, chronic renal failure, hard of hearing, CVA, gastroesophageal reflux disease, CHF, COPD, hypertension and insulin-dependent diabetes who was recently diagnosed with aspiration pneumonia and was hospitalized for this. Patient was discharged to home within the last 24 hours. Patient is a poor historian. Most of this information about the patient was obtained from patient's daughter, EMS and the patient's chart. Patient lives at home with her daughter. Patient's oxygenation level was low per the patient's daughter and therefore the increased her nasal cannula that was at 4 to 15 L. EMS was contacted and the patient's oxygen level on 15 L was 82 to 84%. However, once the patient was in the ambulance being ready to be transported to the emergency department, on 6 L, the patient was 96% oxygen level. Patient specifically states he has no pain Activities at Onset: none Severity of Dyspnea-Max: moderate Severity of Dyspnea-Current: moderate Possible Cause: frequent episodes Modifying Factors: Improves With: coughing Associated Symptoms: cough, No chest pain/discomfort Allergies/Adverse Reactions: carvedilol Allergy (Verified 03/22/21 11:52) Home Medications: Amlodipine Besylate 5 mg [Norvasc 5 mg] 5 mg PO DAILY 02/08/18 [History] Apixaban [Eliquis 5 mg Tablet] 2.5 mg PO BID 02/08/18 [History] Atorvastatin Calcium 40 mg PO HS 02/08/18 [History] Bumetanide 1 mg [Bumex 1 mg] 1 mg PO DAILY 02/08/18 [History] Donepezil HCl [Aricept] 5 mg PO DAILY 02/08/18 [History] Folic Acid 1 mg [Folate 1 mg] 1 mg PO DAILY 02/08/18 [History] Losartan Potassium [Cozaar] 100 mg PO DAILY 02/08/18 [History] Memantine HCl 5 mg PO QHS 02/08/18 [History] Nitroglycerin 0.4 mg Tablet [Nitrostat 0.4 MG Tablet] 1 tablet SL UD PRN 02/08/18 [History] PANTOPRAZOLE 40 mg Tablet [Protonix 40MG Tablet] 40 mg PO DAILY 02/08/18 [History] OLANZapine [Olanzapine] 10 mg PO HS 02/27/19 [History] Insulin Glargine,Hum.rec.anlog [Lantus] 1 unit SQ UD 04/19/19 [History] Aspirin 81 gm Chew [Baby Aspirin 81 mg Chew] 81 mg PO DAILY 08/30/19 [H istory] Escitalopram Oxalate 10 mg [Lexapro 10 MG] 10 mg PO DAILY 08/30/19 [History] Cholecalciferol (Vitamin D3) [Vitamin D3] 10,000 unit PO WEEKLY 08/31/19 [History] Insulin Lispro [Humalog] 1 unit SQ UD 08/31/19 [History] Fluticasone/Umeclidin/Vilanter [Trelegy Ellipta 100-62.5-25] 1 puff IH DAILY 07/01/21 [History] Potassium Chloride 7.5 ml PO BID 07/01/21 [History] Hx Tetanus, Diphtheria Vaccination/Date Given: Yes Hx Influenza Vaccination/Date Given: Yes Hx Pneumococcal Vaccination/Date Given: Yes Immunizations Up to Date: Yes Travel Risk - International Travel Have you traveled outside of the country in past 3 weeks: No - Coronavirus Screening Are you exhibiting any of the following symptoms?: Yes Symptoms: Cough: New Onset, Shortness of Breath Close contact with a COVID-19 positive Pt in past 14-21 Days: No - Vaccine Status Have you recieved a Covid-19 vaccination: (unknown) Merchandise Associate: Unknown - Vaccination Dates Dates if Unknown: unknown - Review of Systems Constitutional: No Symptoms Eyes: No Symptoms Ears, Nose, & Throat: No Symptoms Respiratory: Cough, Dyspnea Cardiac: No Symptoms Abdominal/Gastrointestinal: No Symptoms Genitourinary Symptoms: No Symptoms Musculoskeletal: No Symptoms Skin: No Symptoms Neurological: No Symptoms Psychological: No Symptoms Endocrine: No Symptoms Hematologic/Lymphatic: No Symptoms Immunological/Allergic: No Symptoms All Other Systems: Reviewed and Negative - Past Medical History Pertinent Past Medical History: Yes Neurological History: Alzheimer's Disease, Dementia, Peripheral Neuropathy, Stroke ENT History: Cataracts Cardiac History: Hypertension Respiratory History: CHF, COPD, Sleep Apnea, Other Endocrine Medical History: Diabetes Type II Musculoskeletal History: Arthritis GI Medical History: Diverticulitis, Irritable Bowel History: No Pertinent History, Renal Disease Psycho-Social History: No Pertinent History Female Reproductive Disorders: No Pertinent History, Other Other Medical History: pt family states pt noncompliant with cpap, ovarian cysts - Past Surgical History Past Surgical History: Yes Neuro Surgical History: No Pertinent History Cardiac: No Pertinent History, Internal Defibrillator, Pacemaker Respiratory: No Pertinent History Gastrointestinal: No Pertinent History Genitourinary: Other Musculoskeletal: No Pertinent History Female Surgical History: Tubal Ligation Other Surgical History: ear surgery, cataract surgery, bladder tuck,lasik surgery. Kidney removed - Social History Smoking Status: Former smoker How long have you smoked: 50 Exposure to second hand smoke: No Drug Use: none Patient Lives Alone: No Significant Family History: no pertinent family hx - Nursing Vital Signs Nursing Vital Signs: Initial Vital Signs Temperature 97.8 F 07/09/21 16:47 Pulse Rate 63 07/09/21 16:47 Respiratory Rate 26 H 07/09/21 16:47 Blood Pressure 140/68 07/09/21 16:47 O2 Sat by Pulse Oximetry 90 L 07/09/21 16:47 Pain Scale Pain Intensity 0 - Physical Exam General Appearance: mild distress, alert, lethargy, obese Eye Exam: PERRL/EOMI (Arousable), eyes nml inspection Ears, Nose, Throat Exam: hearing decreased (Patient chronically hard of hearing) Neck Exam: normal inspection, non-tender, supple, full range of motion Respiratory Exam: respiratory distress, airway intact, diminished breath sounds, No chest tenderness Cardiovascular/Chest Exam: normal heart sounds, regular rate/rhythm, normal peripheral pulses Abdominal/Gastrointestinal Exam: soft, normal bowel sounds, No tenderness Rectal Exam: not done Extremity Exam: pedal edema (Bilateral feet and ankles mild) Neurologic Exam: cooperative, sensation nml, other (Allergic but arousable) Skin Exam: normal color, warm, dry Lymphatic Exam: No adenopathy SpO2 Interpretation: normal SpO2: 95 O2 Delivery: Room Air - Course Nursing assessment & vital signs reviewed: Yes EKG Interpreted by Me: RATE (66), Sinus Rhythm, NORMAL AXIS, NORMAL QRS, Non- specific ST Changes, Other (Compared to EKG dated 07/01/2021 there is persistent normal sinus rhythm, persistent prolonged NJ interval and no acute ischemic changes on either EKG.) Ordered Tests: Active Orders 24 hr Category Date Time Status EKG-ER Only STAT Care 07/09/21 16:50 Active IV Insertion STAT Care 07/09/21 16:50 Active CHEST 1 VIEW (PORTABLE) Stat Exams 07/09/21 16:52 Taken BLOOD CULTURE Stat Lab 07/09/21 17:30 Received CBC W DIFF Stat Lab 07/09/21 17:29 Completed CMP Stat Lab 07/09/21 17:29 Completed CULTURE,SPUTUM Stat Lab 07/09/21 19:14 Ordered Lactic Acid Stat Lab 07/09/21 17:45 Completed NT PRO BNP Stat Lab 07/09/21 17:29 Completed TROPONIN Q3H Lab 07/09/21 17:29 Completed TROPONIN Q3H Lab 07/09/21 20:00 Completed TROPONIN Q3H Lab 07/09/21 23:00 Ordered TROPONIN Q3H Lab 07/10/21 02:00 Ordered TROPONIN Q3H Lab 07/10/21 05:00 Ordered Transfer Order Routine Transfer 07/09/21 Ordered Medication Summary Generic Name Dose Route Start Last Admin Trade Name Freq PRN Reason Stop Dose Admin Piperacillin Sod/Tazobactam 100 mls @ 200 mls/hr 07/09/21 20:41 Sod 3.375 gm/ Sodium Chloride IV 07/09/21 21:10 STAT ONE Lab/Rad Data: Laboratory Result Diagrams 07/09/21 17:29 07/09/21 17:29 Laboratory Results 07/09/21 07/09/21 07/09/21 Range/Units 20:00 17:45 17:29 WBC (4.0-10.5) K/mm3 RBC (4.1-5.4) M/mm3 Hgb (12.0-16.0) gm/dl Hct (35-47) % MCV (78-100) fl MCH (26-32) pg MCHC (32-36) g/dl RDW (11.5-14.0) % Plt Count (150-450) K/mm3 MPV (7.5-11.0) fl Gran % (36.0-66.0) % Eos # (Auto) (0-0.5) Absolute Lymphs (auto) (1.0-4.6) Absolute Monos (auto) (0.0-1.3) Lymphocytes % (24.0-44.0) % Monocytes % (0.0-12.0) % Eosinophils % (0.00-5.0) % Basophils % (0.0-0.4) % Absolute Granulocytes (1.4-6.9) Basophils # (0-0.4) Sodium (137-145) mmol/L Potassium (3.5-5.1) mmol/L Chloride (98-107) mmol/L Carbon Dioxide (22-30) mmol/L Anion Gap (5-15) MEQ/L BUN (7-17) mg/dL Creatinine (0.52-1.04) mg/dL Estimated GFR ML/MIN Glucose (74-106) mg/dL Lactic Acid 1.3 (0.4-2.0) Calcium (8.4-10.2) mg/dL Total Bilirubin (0.2-1.3) mg/dL AST (14-36) U/L ALT (0-35) U/L Alkaline Phosphatase (38-126) U/L Troponin I 0.031 0.031 (0.000-0.034) ng/mL NT-Pro-B Natriuret Pep (0-1800) pg/mL Serum Total Protein (6.3-8.2) g/dL Albumin (3.5-5.0) g/dL 07/09/21 07/09/21 Range/Units 17:29 17:29 WBC 8.5 (4.0-10.5) K/mm3 RBC 4.25 (4.1-5.4) M/mm3 Hgb 11.6 L (12.0-16.0) gm/dl Hct 39.2 (35-47) % MCV 92.2 (78-100) fl MCH 27.3 (26-32) pg MCHC 29.6 L (32-36) g/dl RDW 15.4 H (11.5-14.0) % Plt Count 204 (150-450) K/mm3 MPV 10.2 (7.5-11.0) fl Gran % 67.3 H (36.0-66.0) % Eos # (Auto) 0.56 H (0-0.5) Absolute Lymphs (auto) 1.46 (1.0-4.6) Absolute Monos (auto) 0.68 (0.0-1.3) Lymphocytes % 17.2 L (24.0-44.0) % Monocytes % 8.0 (0.0-12.0) % Eosinophils % 6.6 H (0.00-5.0) % Basophils % 0.9 (0.0-0.4) % Absolute Granulocytes 5.72 (1.4-6.9) Basophils # 0.08 (0-0.4) Sodium 141 (137-145) mmol/L Potassium 4.1 (3.5-5.1) mmol/L Chloride 102 (98-107) mmol/L Carbon Dioxide 32 H (22-30) mmol/L Anion Gap 11.7 (5-15) MEQ/L BUN 20 H (7-17) mg/dL Creatinine 1.85 H (0.52-1.04) mg/dL Estimated GFR 27.7 ML/MIN Glucose 132 H (74-106) mg/dL Lactic Acid (0.4-2.0) Calcium 9.7 (8.4-10.2) mg/dL Total Bilirubin 0.50 (0.2-1.3) mg/dL AST 36 (14-36) U/L ALT 28 (0-35) U/L Alkaline Phosphatase 148 H (38-126) U/L Troponin I (0.000-0.034) ng/mL NT-Pro-B Natriuret Pep 524 (0-1800) pg/mL Serum Total Protein 6.8 (6.3-8.2) g/dL Albumin 3.7 (3.5-5.0) g/dL - Progress Progress: re-examined, unchanged Air Movement: fair Progress Note: 07/09/21 20:33 Chest x-ray shows clearing of the left lung base infiltrate when compared to the chest x-ray dated 07/07/2021. There is mild but noticeable increase in the right lower lobe fluid/infiltrate. Medical decision making: I called this patient's primary care physician, Dr. Yadav. I reviewed the patient history, physical findings, radiographic results, laboratory work-up. I also discussed with him the circumstance that she was hypoxic at home and family is concerned about wanting a different plan to help provide her with another plan for improvement in her oxygenation. We will place the patient in observation, provide her with intravenous antibiotics, respiratory therapy evaluation and management as well as nebulizer treatments. Patient will be reassessed by Dr. Yadav. Blood Culture(s) Obtained: Yes Antibiotics given: Yes Will see patient in: hospital (observation) Counseled pt/family regarding: lab results, diagnosis, need for follow-up, rad results - Departure Departure Disposition: Observation Clinical Impression: Hypoxia, Lung infiltrate Condition: Fair Critical Care Time: No Referrals: JANNETTE YADAV MD [Primary Care Provider] - Follow up/PCP as directed
[2021-07-09] MEDS ORDERED: Zosyn 3.375 GM Vial 3.375 GM in Sodium Chloride 100ML MINI-BAG PLUS 100 ML IV ONE (20:41)
[2021-07-09 20:55] LABS: INFLUENZA A NEGATIVE (NEGATIVE); INFLUENZA B NEGATIVE (NEGATIVE); RESPIRATORY SYNCTIAL VIRUS NEGATIVE (Negative); SARS-CoV-2 Xpert Express NEGATIVE (NEGATIVE)
[2021-07-09] MEDS ORDERED: Zosyn 3.375 GM Vial IV ONE (21:19)
[2021-07-09] MEDS ORDERED: Sodium Chloride 100ML MINI-BAG PLUS 100 ML IV ONE (21:19)
[2021-07-09] MEDS ORDERED: HUMULIN R SQ PRN (21:57)
[2021-07-09] MEDS ORDERED: TYLENOL 325 MG PO PRN (21:57)
[2021-07-09] MEDS ORDERED: PROVENTIL 2.5 MG/3 ML NEB IH ONE (22:17)
[2021-07-09] MEDS: PROVENTIL 2.5 MG/3 ML NEB IH SCH (22:21)
[2021-07-09] MEDS: Sodium Chloride 0.9% 1000 ML 1,000 ML IV SCH (23:10)
[2021-07-10] MEDS ORDERED: Zosyn 3.375 GM Vial IV ONE (01:15)
[2021-07-10] MEDS ORDERED: Sodium Chloride 100ML MINI-BAG PLUS 100 ML IV ONE (01:15)
[2021-07-10 03:11] LABS: A-aADO2 375; ABG HEMOGLOBIN 11.2; ABG POTASSIUM 3.6 (3.5-5.1); ABG SITE RIGHT RADIAL; ALLEN TEST OK? YES; ARTERIAL BLD GAS O2 SATURATION 92.3 % (95-100); ARTERIAL BLD GAS TIDAL VOLUME 450 cc; ARTERIAL BLOOD GAS BASE EXCESS 6.1 (-2.0-2.0); ARTERIAL BLOOD GAS FIO2 70 %; ARTERIAL BLOOD GAS PCO2 49 mmHg (35-45); ARTERIAL BLOOD GAS PO2 63 mmHg (75-100); ARTERIAL BLOOD GAS VENT MODE BiPAP; ARTERIAL BLOOD GAS pH 7.42 (7.35-7.45); CARBOXYHEMOGLOBIN 0.8 % THgb (0.0-6.9); HCO3- 31.8 (22-28); HGB O2 SAT 90.7 g/dF (94-100); Methhemoglobin 0.9 % (1.4-1.5)
[2021-07-10] MEDS: PROVENTIL 2.5 MG/3 ML NEB IH SCH ×4 (06:44→18:36)
[2021-07-10 06:45] LABS: Absolute Neutrophil Ct (ANC) 3.67 (1.4-6.9); Basophil (Absolute #) 0.06 (0-0.4); Eosinophil % 9.3 % (0.00-5.0); Hematocrit 37.2 % (35-47); Hemoglobin 10.9 gm/dl (12.0-16.0); Lymphocyte (Absolute #) 1.46 (1.0-4.6); Lymphocytes % 22.7 % (24.0-44.0); Mean Corpuscular Hemoglobin 27.3 pg (26-32); Mean Corpuscular Hgb Concent. 29.3 g/dl (32-36); Mean Platelet Volume 10.3 fl (7.5-11.0); Monocyte (Absolute #) 0.65 (0.0-1.3); Monocytes % 10.1 % (0.0-12.0); Platelet Count 198 K/mm3 (150-450); Red Cell Distribution Width 15.5 % (11.5-14.0); White Blood Count 6.4 K/mm3 (4.0-10.5)
--- NOTE | 2021-07-10 08:51 | PCM.HP ---
History of Present Illness - Chief Complaint Chief Complaint: pnemonia History of Present Illness: is a 81 year old female with copd and chronic hypoxemic respiratory failure, she was recently admitted for possible aspiration pneumonia, improved and seemed back to her baseline, released and went home and was hypoxic so family brought her back to the ER, she is in bipap at home, normally on home oxygen at around 4-5L. she has no complaints today when seen, when asked if she is short of breath she responds "sometimes". - Review of Systems Constitutional: No Fever, No Chills Respiratory: Short Of Breath Cardiac: No Chest Pain, No Edema, No Syncope Abdominal/Gastrointestinal: No Abdominal Pain, No Nausea, No Vomiting, No Diarrhea Skin: No Rash Neurological: No Dizziness, No Focal Weakness, No Sensory Changes All Other Systems: Reviewed and Negative Medications & Allergies Home Medications: Home Medication List Amlodipine Besylate 5 mg [Norvasc 5 mg] 5 mg PO DAILY 02/08/18 [History Confirmed 07/09/21] Apixaban [Eliquis 5 mg Tablet] 2.5 mg PO BID 02/08/18 [History Confirmed 07/09/21] Atorvastatin Calcium 40 mg PO HS 02/08/18 [History Confirmed 07/09/21] Bumetanide 1 mg [Bumex 1 mg] 1 mg PO DAILY 02/08/18 [History Confirmed 07/09/21] Donepezil HCl [Aricept] 5 mg PO DAILY 02/08/18 [History Confirmed 07/09/21] Folic Acid 1 mg [Folate 1 mg] 1 mg PO DAILY 02/08/18 [History Confirmed 07/09/21] Losartan Potassium [Cozaar] 100 mg PO DAILY 02/08/18 [History Confirmed 07/09/21] Memantine HCl 5 mg PO QHS 02/08/18 [History Confirmed 07/09/21] Nitroglycerin 0.4 mg Tablet [Nitrostat 0.4 MG Tablet] 1 tablet SL UD PRN 02/08/18 [History Confirmed 07/09/21] PANTOPRAZOLE 40 mg Tablet [Protonix 40MG Tablet] 40 mg PO DAILY 02/08/18 [History Confirmed 07/09/21] OLANZapine [Olanzapine] 10 mg PO HS 02/27/19 [History Confirmed 07/09/21] Insulin Glargine,Hum.rec.anlog [Lantus] 1 unit SQ UD 04/19/19 [History Confirmed 07/09/21] Aspirin 81 gm Chew [Baby Aspirin 81 mg Chew] 81 mg PO DAILY 08/30/19 [History Confirmed 07/09/21] Escitalopram Oxalate 10 mg [Lexapro 10 MG] 10 mg PO DAILY 08/30/19 [History Confirmed 07/09/21] Cholecalciferol (Vitamin D3) [Vitamin D3] 10,000 unit PO WEEKLY 08/31/19 [History Confirmed 07/09/21] Insulin Lispro [Humalog] 1 unit SQ UD 08/31/19 [History Confirmed 07/09/21] Potassium Chloride 7.5 ml PO BID 07/01/21 [History Confirmed 07/09/21] Fluticasone/Umeclidin/Vilanter [Trelegy Ellipta 100-62.5-25] 1 puff IH DAILY 07/09/21 [History Confirmed 07/09/21] Guaifenesin [Mucinex] 600 mg PO BID 07/09/21 [History Confirmed 07/09/21] Allergies/Adverse Reactions: Allergies Allergy/AdvReac Type Severity Reaction Status Date / Time carvedilol Allergy Verified 03/22/21 11:52 - Past Medical History Past Medical History: Yes Neurological History: Alzheimer's Disease, Dementia, Peripheral Neuropathy, Stroke ENT History: Cataracts Cardiac History: Hypertension Respiratory History: CHF, COPD, Sleep Apnea, Other Endocrine Medical History: Diabetes Type II Musculoskelatal History: Arthritis GI Medical History: Diverticulitis, Irritable Bowel History: No Pertinent History, Renal Disease Pyscho-Social History: No Pertinent History Reproductive Disorders: No Pertinent History, Other Comment: pt family states pt noncompliant with cpap, ovarian cysts - Female History Are you now?: No - Past Surgical History Past Surgical History: Yes Neuro Surgical History: No Pertinent History Cardiac History: No Pertinent History, Internal Defibrillator, Pacemaker Respiratory Surgery: No Pertinent History GI Surgical History: No Pertinent History Genitourinary Surgical Hx: Other Musculskeletal Surgical Hx: No Pertinent History Female Surgical History: Tubal Ligation Other Surgical History: ear surgery, cataract surgery, bladder tuck,lasik elliot estela. Kidney removed - Social History Smoking Status: Former smoker How long have you smoked: 50 Exposure to second hand smoke: No Alcohol: None Drug Use: none Significant Family History: no pertinent family hx - Physical Exam Vital Signs: Vital Signs - 24 hr Temp Pulse Resp BP Pulse Ox 07/10/21 08:00 96.1 F 60 21 125/91 98 07/10/21 06:55 64 20 98 07/10/21 04:00 97.1 F 63 26 H 126/60 100 07/10/21 00:00 97.5 F 67 24 125/66 92 L 07/09/21 22:37 97.7 F 58 L 24 129/60 92 L 07/09/21 22:23 58 L 24 93 L 07/09/21 21:57 93 L 07/09/21 20:47 95 07/09/21 20:19 61 22 95 07/09/21 19:15 71 25 H 142/73 07/09/21 18:18 97.8 F 67 24 129/78 92 L 07/09/21 16:47 97.8 F 63 26 H 140/68 90 L General Appearance: no apparent distress Neurologic Exam: alert, cooperative Respiratory Exam: rhonchi Cardiovascular Exam: regular rate/rhythm, normal heart sounds, normal peripheral pulses Gastrointestinal/Abdomen Exam: soft, normal bowel sounds, No tenderness, No mass Extremity Exam: normal inspection, normal range of motion, pelvis stable Skin Exam: normal color, warm, dry, No rash Results - Labs Lab/Micro Results: Lab Results-Last 24 Hours 07/09/21 07/09/21 07/09/21 Range/Units 17:29 17:29 17:29 WBC 8.5 (4.0-10.5) K/mm3 RBC 4.25 (4.1-5.4) M/mm3 Hgb 11.6 L (12.0-16.0) gm/dl Hct 39.2 (35-47) % MCV 92.2 (78-100) fl MCH 27.3 (26-32) pg MCHC 29.6 L (32-36) g/dl RDW 15.4 H (11.5-14.0) % Plt Count 204 (150-450) K/mm3 MPV 10.2 (7.5-11.0) fl Gran % 67.3 H (36.0-66.0) % Eos # (Auto) 0.56 H (0-0.5) Absolute Lymphs (auto) 1.46 (1.0-4.6) Absolute Monos (auto) 0.68 (0.0-1.3) Lymphocytes % 17.2 L (24.0-44.0) % Monocytes % 8.0 (0.0-12.0) % Eosinophils % 6.6 H (0.00-5.0) % Basophils % 0.9 (0.0-0.4) % Absolute Granulocytes 5.72 (1.4-6.9) Basophils # 0.08 (0-0.4) Puncture Site pCO2 (35-45) mmHg pO2 (75-100) mmHg Base Excess (-2.0-2.0) O2 Saturation (94-100) g/dF ABG pH (7.35-7.45) ABG HCO3 (22-28) ABG O2 Sat (Measured) (95-100) % Emmanuel Test A-a Gradient a/A Ratio Hemoglobin Carboxyhemoglobin (0.0-6.9) % THgb Methemoglobin (1.4-1.5) % Temperature C POC O2 Flow Rate % Vent Mode Tidal Volume cc PEEP cmH2O Sodium 141 (137-145) mmol/L Potassium 4.1 (3.5-5.1) mmol/L Chloride 102 (98-107) mmol/L Carbon Dioxide 32 H (22-30) mmol/L Anion Gap 11.7 (5-15) MEQ/L BUN 20 H (7-17) mg/dL Creatinine 1.85 H (0.52-1.04) mg/dL Estimated GFR 27.7 ML/MIN Glucose 132 H (74-106) mg/dL POC Glucometer (74 to 106) mg/dL Lactic Acid (0.4-2.0) Calcium 9.7 (8.4-10.2) mg/dL Total Bilirubin 0.50 (0.2-1.3) mg/dL AST 36 (14-36) U/L ALT 28 (0-35) U/L Alkaline Phosphatase 148 H (38-126) U/L Troponin I 0.031 (0.000-0.034) ng/mL NT-Pro-B Natriuret Pep 524 (0-1800) pg/mL Serum Total Protein 6.8 (6.3-8.2) g/dL Albumin 3.7 (3.5-5.0) g/dL Influenza Type A Ag (NEGATIVE) Influenza Type B Ag (NEGATIVE) RSV (PCR) (Negative) SARS-CoV-2 (PCR) (NEGATIVE) 07/09/21 07/09/21 07/09/21 Range/Units 17:45 19:47 20:00 WBC (4.0-10.5) K/mm3 RBC (4.1-5.4) M/mm3 Hgb (12.0-16.0) gm/dl Hct (35-47) % MCV (78-100) fl MCH (26-32) pg MCHC (32-36) g/dl RDW (11.5-14.0) % Plt Count (150-450) K/mm3 MPV (7.5-11.0) fl Gran % (36.0-66.0) % Eos # (Auto) (0-0.5) Absolute Lymphs (auto) (1.0-4.6) Absolute Monos (auto) (0.0-1.3) Lymphocytes % (24.0-44.0) % Monocytes % (0.0-12.0) % Eosinophils % (0.00-5.0) % Basophils % (0.0-0.4) % Absolute Granulocytes (1.4-6.9) Basophils # (0-0.4) Puncture Site pCO2 (35-45) mmHg pO2 (75-100) mmHg Base Excess (-2.0-2.0) O2 Saturation (94-100) g/dF ABG pH (7.35-7.45) ABG HCO3 (22-28) ABG O2 Sat (Measured) (95-100) % Emmanuel Test A-a Gradient a/A Ratio Hemoglobin Carboxyhemoglobin (0.0-6.9) % THgb Methemoglobin (1.4-1.5) % Temperature C POC O2 Flow Rate % Vent Mode Tidal Volume cc PEEP cmH2O Sodium (137-145) mmol/L Potassium (3.5-5.1) mmol/L Chloride (98-107) mmol/L Carbon Dioxide (22-30) mmol/L Anion Gap (5-15) MEQ/L BUN (7-17) mg/dL Creatinine (0.52-1.04) mg/dL Estimated GFR ML/MIN Glucose (74-106) mg/dL POC Glucometer (74 to 106) mg/dL Lactic Acid 1.3 (0.4-2.0) Calcium (8.4-10.2) mg/dL Total Bilirubin (0.2-1.3) mg/dL AST (14-36) U/L ALT (0-35) U/L Alkaline Phosphatase (38-126) U/L Troponin I 0.031 (0.000-0.034) ng/mL NT-Pro-B Natriuret Pep (0-1800) pg/mL Serum Total Protein (6.3-8.2) g/dL Albumin (3.5-5.0) g/dL Influenza Type A Ag NEGATIVE (NEGATIVE) Influenza Type B Ag NEGATIVE (NEGATIVE) RSV (PCR) NEGATIVE (Negative) SARS-CoV-2 (PCR) NEGATIVE (NEGATIVE) 07/09/21 07/10/21 07/10/21 Range/Units 23:00 02:17 03:08 WBC (4.0-10.5) K/mm3 RBC (4.1-5.4) M/mm3 Hgb (12.0-16.0) gm/dl Hct (35-47) % MCV (78-100) fl MCH (26-32) pg MCHC (32-36) g/dl RDW (11.5-14.0) % Plt Count (150-450) K/mm3 MPV (7.5-11.0) fl Gran % (36.0-66.0) % Eos # (Auto) (0-0.5) Absolute Lymphs (auto) (1.0-4.6) Absolute Monos (auto) (0.0-1.3) Lymphocytes % (24.0-44.0) % Monocytes % (0.0-12.0) % Eosinophils % (0.00-5.0) % Basophils % (0.0-0.4) % Absolute Granulocytes (1.4-6.9) Basophils # (0-0.4) Puncture Site RIGHT RADIAL pCO2 49 H (35-45) mmHg pO2 63 L (75-100) mmHg Base Excess 6.1 H (-2.0-2.0) O2 Saturation 90.7 L (94-100) g/dF ABG pH 7.42 (7.35-7.45) ABG HCO3 31.8 H* (22-28) ABG O2 Sat (Measured) 92.3 L (95-100) % Emmanuel Test YES A-a Gradient 375 a/A Ratio 0.14 Hemoglobin 11.2 Carboxyhemoglobin 0.8 (0.0-6.9) % THgb Methemoglobin 0.9 L (1.4-1.5) % Temperature 37.0 C POC O2 Flow Rate 70 % Vent Mode BiPAP Tidal Volume 450 cc PEEP 5.0 cmH2O Sodium (137-145) mmol/L Potassium 3.6 (3.5-5.1) mmol/L Chloride (98-107) mmol/L Carbon Dioxide (22-30) mmol/L Anion Gap (5-15) MEQ/L BUN (7-17) mg/dL Creatinine (0.52-1.04) mg/dL Estimated GFR ML/MIN Glucose (74-106) mg/dL POC Glucometer (74 to 106) mg/dL Lactic Acid (0.4-2.0) Calcium (8.4-10.2) mg/dL Total Bilirubin (0.2-1.3) mg/dL AST (14-36) U/L ALT (0-35) U/L Alkaline Phosphatase (38-126) U/L Troponin I 0.033 0.031 (0.000-0.034) ng/mL NT-Pro-B Natriuret Pep (0-1800) pg/mL Serum Total Protein (6.3-8.2) g/dL Albumin (3.5-5.0) g/dL Influenza Type A Ag (NEGATIVE) Influenza Type B Ag (NEGATIVE) RSV (PCR) (Negative) SARS-CoV-2 (PCR) (NEGATIVE) 07/10/21 07/10/21 Range/Units 06:15 07:44 WBC 6.4 (4.0-10.5) K/mm3 RBC 4.00 L (4.1-5.4) M/mm3 Hgb 10.9 L (12.0-16.0) gm/dl Hct 37.2 (35-47) % MCV 93.0 (78-100) fl MCH 27.3 (26-32) pg MCHC 29.3 L (32-36) g/dl RDW 15.5 H (11.5-14.0) % Plt Count 198 (150-450) K/mm3 MPV 10.3 (7.5-11.0) fl Gran % 57.0 (36.0-66.0) % Eos # (Auto) 0.60 H (0-0.5) Absolute Lymphs (auto) 1.46 (1.0-4.6) Absolute Monos (auto) 0.65 (0.0-1.3) Lymphocytes % 22.7 L (24.0-44.0) % Monocytes % 10.1 (0.0-12.0) % Eosinophils % 9.3 H (0.00-5.0) % Basophils % 0.9 (0.0-0.4) % Absolute Granulocytes 3.67 (1.4-6.9) Basophils # 0.06 (0-0.4) Puncture Site pCO2 (35-45) mmHg pO2 (75-100) mmHg Base Excess (-2.0-2.0) O2 Saturation (94-100) g/dF ABG pH (7.35-7.45) ABG HCO3 (22-28) ABG O2 Sat (Measured) (95-100) % Emmanuel Test A-a Gradient a/A Ratio Hemoglobin Carboxyhemoglobin (0.0-6.9) % THgb Methemoglobin (1.4-1.5) % Temperature C POC O2 Flow Rate % Vent Mode Tidal Volume cc PEEP cmH2O Sodium (137-145) mmol/L Potassium (3.5-5.1) mmol/L Chloride (98-107) mmol/L Carbon Dioxide (22-30) mmol/L Anion Gap (5-15) MEQ/L BUN (7-17) mg/dL Creatinine (0.52-1.04) mg/dL Estimated GFR ML/MIN Glucose (74-106) mg/dL POC Glucometer 122 H (74 to 106) mg/dL Lactic Acid (0.4-2.0) Calcium (8.4-10.2) mg/dL Total Bilirubin (0.2-1.3) mg/dL AST (14-36) U/L ALT (0-35) U/L Alkaline Phosphatase (38-126) U/L Troponin I (0.000-0.034) ng/mL NT-Pro-B Natriuret Pep (0-1800) pg/mL Serum Total Protein (6.3-8.2) g/dL Albumin (3.5-5.0) g/dL Influenza Type A Ag (NEGATIVE) Influenza Type B Ag (NEGATIVE) RSV (PCR) (Negative) SARS-CoV-2 (PCR) (NEGATIVE) - Radiology Impressions Radiology Exams & Impressions: Radiology Procedures Category Date Time Status CHEST 1 VIEW (PORTABLE) Stat Exams 07/09/21 16:52 Taken - Other Procedures and Tests Respiratory Therapy 07/09/21 21:57 Oxygen Oxymizer LPM 10 lpm 07/09/21 22:23 BiPap/CPAP ROUTINE Respiratory Therapy Assessment DAILY Assessment/Plan (1) Aspiration pneumonia Current Visit: No Status: Acute Assessment & Plan: continue zosyn, wbc normal and infiltrate on chest xray is not impressive. I suspect Beatrice is near her baseline and overall her condition is worsening, family wishes for full code status, will consult Dr Ramirez her customer counter representative. will obtain swallow evaluation and try to sort out if she needs a higher flow r ate on oxygen at home or oxygen with her bipap at home with her pulm. Code(s): J69.0 - PNEUMONITIS DUE TO INHALATION OF FOOD AND VOMIT (2) Choking Current Visit: No Status: Suspected Assessment & Plan: speech eval Code(s): T17.308A - UNSP FOREIGN BODY IN LARYNX CAUSING OTH INJURY, INIT ENCNTR (3) Alzheimer's dementia with behavioral disturbance Current Visit: No Status: Chronic Code(s): G30.9 - ALZHEIMER'S DISEASE, UNSPECIFIED; F02.81 - DEMENTIA IN OTH DISEASES CLASSD ELSWHR W BEHAVIORAL DISTURB (4) COPD (chronic obstructive pulmonary disease) Current Visit: No Status: Chronic Qualifiers: (5) Chronic hypoxemic respiratory failure Current Visit: No Status: Chronic
--- NOTE | 2021-07-10 08:58 | XRAY ---
Indication: Short of breath. Comparison: July 07, 2021. Portable chest again demonstrates bibasilar infiltrates/atelectasis, unchanged on the left and moderately worsened on the right with now small right effusion. Heart remains enlarged again with arteriosclerotic/tortuous aorta and left pacemaker.
[2021-07-10 09:05] LABS: ALBUMIN 3.3 g/dL (3.5-5.0); ANION GAP 15.2 MEQ/L (5-15); BILIRUBIN,TOTAL 0.5 mg/dL (0.2-1.3); Calcium 9.1 mg/dL (8.4-10.2); Creatinine 1 1.98 mg/dL (0.52-1.04); EST GLOMERULAR FILTRATION RATE 25.6 ML/MIN; Potassium 3.9 mmol/L (3.5-5.1); Total Protein 6.1 g/dL (6.3-8.2)
[2021-07-10] MEDS ORDERED: Zosyn 3.375 GM Vial 3.375 GM in Sodium Chloride 100ML MINI-BAG PLUS 100 ML IV SCH ×3 (09:30)
[2021-07-10] MEDS ORDERED: APIXABAN PO SCH (10:00)
[2021-07-10] MEDS ORDERED: NON-FORMULARY ITEM (Donepezil Hcl [Aricept] 5 MG Tablet) PO SCH (10:00)
[2021-07-10] MEDS ORDERED: NON-FORMULARY ITEM (Losartan Potassium [Cozaar] 100 MG Tablet) PO SCH (10:00)
[2021-07-10] MEDS ORDERED: NON-FORMULARY ITEM (Potassium Chloride [Potassium Chloride] 20 MEQ/15 ML Liquid) PO SCH (10:00)
[2021-07-10] MEDS ORDERED: ENOXAPARIN SODIUM SQ SCH (10:00)
[2021-07-10] MEDS ORDERED: NON-FORMULARY ITEM (Fluticasone/Umeclidin/Vilanter [Trelegy Ellipta 100-62.5-25] 1 EACH Bl IH SCH (10:00)
[2021-07-10] MEDS ORDERED: MEDICATION INTERVENTION MC SCH (10:15)
[2021-07-10] MEDS: Aricept 10 MG PO SCH (11:31)
[2021-07-10] MEDS: BUMEX 1 MG PO SCH (11:31)
[2021-07-10] MEDS: ELIQUIS 2.5 MG TABLET PO SCH ×2 (11:31→22:13)
[2021-07-10] MEDS: ECOTRIN 81 MG PO SCH (11:32)
[2021-07-10] MEDS: Lexapro 10 MG PO SCH (11:33)
[2021-07-10] MEDS: NORVASC 5 MG PO SCH (11:33)
[2021-07-10] MEDS: Klor Con 10 MEQ PO SCH ×2 (11:33→22:12)
[2021-07-10] MEDS: Cozaar 50 MG PO SCH (11:33)
[2021-07-10] MEDS: Protonix 40MG Tablet PO SCH (11:37)
[2021-07-10] MEDS: Zosyn 2.25 GM 2.25 GM in Sodium Chloride 100ML MINI-BAG PLUS 100 ML IV SCH ×2 (12:11→17:44)
--- NOTE | 2021-07-10 14:59 | CONS ---
CONSULT DATE: 07/10/2021 REASON FOR CONSULT: Acute on chronic respiratory failure. HISTORY: Beatrice Plaza is an 81-year-old woman with long standing history of pulmonary problems on home oxygen as well as noninvasive ventilation therapy. She was admitted at [facility]. The patient was discharged home. However according to her daughter who is also her caregiver, the patient's oxygen requirement kept dropping despite being on noninvasive ventilation ultimately having to bring her back. The patient apparently had mucous secretions. After being admitted she has been placed on BiPAP and currently tolerating the same well. There was a concern about whether the patient would benefit from Trelegy therapy. She was on Trelegy a few years ago when she was on palliative care service. She is currently off of the same. According to the daughter, she has had a good routine and is able to ambulate with help of walker. A swallow evaluation has been requested which is pending. PAST MEDICAL HISTORY: Positive for history of hypertension, dyslipidemia, obesity, dementia, chronic obstructive pulmonary disease, diabetes mellitus, coronary artery disease, gastroesophageal reflux disease along with anxiety and depression. PAST SURGICAL HISTORY: No recent surgery. PERSONAL AND SOCIAL HISTORY: As above. MEDICATIONS: Home and current medications are reviewed. ALLERGIES: CARVEDILOL. PHYSICAL EXAMINATION: This is an elderly woman who is currently resting comfortably. The patient has BiPAP mask on face with IPAP of 12, APAP 6, back up rate of 6 and 40% FIO2 saturating 95%. HEENT: Normocephalic. Oral exam limited. NECK: Short. CVS: First and second heart sounds are normal, regular, rhythmic. RESPIRATORY: Shows diminished breath sounds. ABDOMEN: Obese. EXTREMITIES: Trace edema is noted. LABORATORY DATA AND TESTS: ABG's were all reviewed. ASSESSMENT: This is an 81-year-old woman admitted with: 1) Acute on chronic hypoxic respiratory failure. Acute component has resolved likely from mucous plugging, aspiration? Being evaluated for dysphagia. 2) Chronic hypercapnia likely from obesity, hyperventilation, compensated. 3) Underlying chronic obstructive pulmonary disease. 4) Comorbidities listed above. RECOMMENDATIONS: I had a long discussion with the patient's daughter. She is comfortable with taking care of patient at home. I believe at this point the patient's blood gases would not qualify for Trelegy although BiPAP with back up rate would pretty much offer her same ventilatory support she needs. Resume all other home medications, follow recommendations of swallowing evaluation. I advised the daughter to call my office PRN in the future. I have seen her in the past but have not followed her in the past 18 months or so. I will be glad to assist in future as needed. Thank you for allowing me to participate in the care of this patient.
[2021-07-10] MEDS: PATIENT OWN MEDICATION IH SCH (15:02)
[2021-07-10] MEDS ORDERED: Namenda 5 MG PO SCH (22:00)
[2021-07-10] MEDS ORDERED: zyPREXA 5MG TABLET PO SCH (22:00)
[2021-07-10] MEDS ORDERED: NON-FORMULARY ITEM (Olanzapine [Olanzapine] 10 MG Tablet) PO SCH (22:00)
[2021-07-10] MEDS: Sodium Chloride 0.9% 1000 ML 1,000 ML IV SCH (22:11)
[2021-07-11] MEDS: Zosyn 2.25 GM 2.25 GM in Sodium Chloride 100ML MINI-BAG PLUS 100 ML IV SCH ×3 (00:34→11:57)
[2021-07-11 05:08] LABS: Absolute Neutrophil Ct (ANC) 3.55 (1.4-6.9); Basophil (Absolute #) 0.08 (0-0.4); Eosinophil % 9.9 % (0.00-5.0); Eosinophil (Absolute #) 0.63 (0-0.5); Hematocrit 38.9 % (35-47); Hemoglobin 11.4 gm/dl (12.0-16.0); Lymphocyte (Absolute #) 1.41 (1.0-4.6); Lymphocytes % 22.2 % (24.0-44.0); Mean Cell Volume 93.1 fl (78-100); Mean Corpuscular Hemoglobin 27.3 pg (26-32); Mean Corpuscular Hgb Concent. 29.3 g/dl (32-36); Mean Platelet Volume 10.2 fl (7.5-11.0); Monocyte (Absolute #) 0.69 (0.0-1.3); Monocytes % 10.8 % (0.0-12.0); Neutrophil % 55.8 % (36.0-66.0); Platelet Count 211 K/mm3 (150-450); Red Blood Count 4.18 M/mm3 (4.1-5.4); Red Cell Distribution Width 15.4 % (11.5-14.0); White Blood Count 6.4 K/mm3 (4.0-10.5)
[2021-07-11 05:26] LABS: ALBUMIN 3.6 g/dL (3.5-5.0); ANION GAP 11.1 MEQ/L (5-15); BILIRUBIN,TOTAL 0.5 mg/dL (0.2-1.3); Calcium 9.2 mg/dL (8.4-10.2); Creatinine 1 1.92 mg/dL (0.52-1.04); EST GLOMERULAR FILTRATION RATE 26.6 ML/MIN; MAGNESIUM 2.2 mg/dL (1.6-2.3); Potassium 3.6 mmol/L (3.5-5.1); Total Protein 6.9 g/dL (6.3-8.2)
[2021-07-11] MEDS: PROVENTIL 2.5 MG/3 ML NEB IH SCH ×2 (06:45→10:34)
[2021-07-11] MEDS: ECOTRIN 81 MG PO SCH (09:24)
[2021-07-11] MEDS: Aricept 10 MG PO SCH (09:24)
[2021-07-11] MEDS: NORVASC 5 MG PO SCH (09:24)
[2021-07-11] MEDS: Klor Con 10 MEQ PO SCH (09:24)
[2021-07-11] MEDS: Protonix 40MG Tablet PO SCH (09:24)
[2021-07-11] MEDS: Cozaar 50 MG PO SCH (09:25)
[2021-07-11] MEDS: BUMEX 1 MG PO SCH (09:25)
[2021-07-11] MEDS: ELIQUIS 2.5 MG TABLET PO SCH (09:25)
[2021-07-11] MEDS: Lexapro 10 MG PO SCH (09:27)
[2021-07-11] MEDS: PATIENT OWN MEDICATION IH SCH (09:30)
--- NOTE | 2021-07-11 11:05 | PCM.DS ---
Discharge Summary Date of Admission: 07/09/21 21:56 Admitting Physician: JANNETTE YADAV Consults: Consults on Case 07/10/21 15:26 Consult Pulmonology ROUTINE Primary Care Provider: JANNETTE YADAV Allergies Allergies carvedilol Allergy (Verified 03/22/21 11:52) Hospital Summary - Hospital Course Hospital Course: patient admitted with hypoxia, having some trouble swallowing and with secretions at home. doing well now, was seen by Dr Ayad Ramirez and consult note reviewed. to have bedside speech eval today for practical recommendations then plan to discharge to home. - Vitals & Intake/Output Vital Signs: Vital Signs Temperature 97.3 F 07/11/21 08:00 Pulse Rate 64 07/11/21 10:36 Respiratory Rate 20 07/11/21 10:36 Blood Pressure 136/71 07/11/21 08:00 O2 Sat by Pulse Oximetry 91 L 07/11/21 10:36 Intake & Output: Intake & Output 07/08/21 07/09/21 07/10/21 07/11/21 11:59 11:59 11:59 11:59 Intake Total 1811 Output Total 138 2198 2250 Balance -591 -0080 -428 Weight 91.6 kg - Lab Result Diagrams: 07/11/21 04:54 07/11/21 04:54 Lab Results-Last 24 Hrs: Lab Results-Last 24 Hours 07/10/21 07/10/21 07/11/21 Range/Units 11:49 20:30 04:54 WBC 6.4 (4.0-10.5) K/mm3 RBC 4.18 (4.1-5.4) M/mm3 Hgb 11.4 L (12.0-16.0) gm/dl Hct 38.9 (35-47) % MCV 93.1 (78-100) fl MCH 27.3 (26-32) pg MCHC 29.3 L (32-36) g/dl RDW 15.4 H (11.5-14.0) % Plt Count 211 (150-450) K/mm3 MPV 10.2 (7.5-11.0) fl Gran % 55.8 (36.0-66.0) % Eos # (Auto) 0.63 H (0-0.5) Absolute Lymphs (auto) 1.41 (1.0-4.6) Absolute Monos (auto) 0.69 (0.0-1.3) Lymphocytes % 22.2 L (24.0-44.0) % Monocytes % 10.8 (0.0-12.0) % Eosinophils % 9.9 H (0.00-5.0) % Basophils % 1.3 (0.0-0.4) % Absolute Granulocytes 3.55 (1.4-6.9) Basophils # 0.08 (0-0.4) Sodium (137-145) mmol/L Potassium (3.5-5.1) mmol/L Chloride (98-107) mmol/L Carbon Dioxide (22-30) mmol/L Anion Gap (5-15) MEQ/L BUN (7-17) mg/dL Creatinine (0.52-1.04) mg/dL Estimated GFR ML/MIN Glucose (74-106) mg/dL POC Glucometer 111 H 119 H (74 to 106) mg/dL Calcium (8.4-10.2) mg/dL Magnesium (1.6-2.3) mg/dL Total Bilirubin (0.2-1.3) mg/dL AST (14-36) U/L ALT (0-35) U/L Alkaline Phosphatase (38-126) U/L Serum Total Protein (6.3-8.2) g/dL Albumin (3.5-5.0) g/dL 07/11/21 07/11/21 Range/Units 04:54 07:27 WBC (4.0-10.5) K/mm3 RBC (4.1-5.4) M/mm3 Hgb (12.0-16.0) gm/dl Hct (35-47) % MCV (78-100) fl MCH (26-32) pg MCHC (32-36) g/dl RDW (11.5-14.0) % Plt Count (150-450) K/mm3 MPV (7.5-11.0) fl Gran % (36.0-66.0) % Eos # (Auto) (0-0.5) Absolute Lymphs (auto) (1.0-4.6) Absolute Monos (auto) (0.0-1.3) Lymphocytes % (24.0-44.0) % Monocytes % (0.0-12.0) % Eosinophils % (0.00-5.0) % Basophils % (0.0-0.4) % Absolute Granulocytes (1.4-6.9) Basophils # (0-0.4) Sodium 143 (137-145) mmol/L Potassium 3.6 (3.5-5.1) mmol/L Chloride 103 (98-107) mmol/L Carbon Dioxide 32 H (22-30) mmol/L Anion Gap 11.1 (5-15) MEQ/L BUN 15 (7-17) mg/dL Creatinine 1.92 H (0.52-1.04) mg/dL Estimated GFR 26.6 ML/MIN Glucose 114 H (74-106) mg/dL POC Glucometer 120 H (74 to 106) mg/dL Calcium 9.2 (8.4-10.2) mg/dL Magnesium 2.2 (1.6-2.3) mg/dL Total Bilirubin 0.50 (0.2-1.3) mg/dL AST 35 (14-36) U/L ALT 34 (0-35) U/L Alkaline Phosphatase 165 H (38-126) U/L Serum Total Protein 6.9 (6.3-8.2) g/dL Albumin 3.6 (3.5-5.0) g/dL Micro Results-Entire Visit: Microbiology 07/09/21 17:20 Blood Culture - Preliminary Blood NO GROWTH TO DATE Accuchecks Date 07/10/21 Date 07/10/21 Time 22:00 Time 12:00 - Radiology Exams Ordered Rad Exams-Entire Visit: Radiology Procedures Category Date Time Status CHEST 1 VIEW (PORTABLE) Stat Exams 07/09/21 16:52 Completed - Procedures and Test Procedures and Tests throughout Hospitalization: Therapy Orders & Screens 07/09/21 21:57 Oxygen Oxymizer LPM 10 lpm Comment: Respiratory Therapy Consult ROUTINE Comment: Reason For Exam: 07/09/21 22:23 BiPap/CPAP ROUTINE Comment: Respiratory Therapy Assessment DAILY Comment: 07/09/21 22:53 OT Screen per Nursing Assess ONCE Comment: Protocol Order Physician Instructions: Greater than 3 points order OT Admission Screening Reason For Exam: Triggered on Admission Diagnosis: pnemonia Open Wound/Cellutlitis/Pressure Ulcers: No Acute Fx/ORIF/Change in wt bearing status: No Severe MUSCULOSKELETAL pain: No ADL Dysfunction: Yes Acute CVA w/Hemiparesis/Hemiplegia: Yes Decreased Functional Mobility/Strength: Yes Sprain/Strain: No Acute Post-op Mobility Dysfunction: No Total Points: 9 PT Screen per Nursing Assess ONCE Comment: Protocol Order Physician Instructions: Greater than 3 points order PT Admission Screenin Reason For Exam: Triggered on Admission Diagnosis: pnemonia Open Wound/Cellutlitis/Pressure Ulcers: No Acute Fx/ORIF/Change in wt bearing status: No Severe MUSCULOSKELETAL pain: No ADL Dysfunction: Yes Acute CVA w/Hemiparesis/Hemiplegia: Yes Decreased Functional Mobility/Strength: Yes Sprain/Strain: No Acute Post-op Mobility Dysfunction: No Total Points: 9 RT Screen per Nursing Assess ONCE Comment: Protocol Order Physician Instructions: Greater than 3 points order RT Admission Screen Reason For Exam: Triggered on Admission Diagnosis: pnemonia Diagnosis: pnemonia Pneumonia: Yes Home O2: Yes Asthma: No CHF: No Home CPAP/BIPAP: Yes Home Nebs/MDI: Yes Total Points: 18 07/10/21 08:53 Speech Therapy Eval & Treat [ST Eval & Treat (MD Order)] .as ordered Comment: Physician Instructions: Reason For Exam: Evaluate: Yes Treat: Yes Reason for Eval: ?aspiration, choking Diagnosis: pnemonia 07/11/21 07:00 Respiratory MDI DAILY Comment: TRELEGY [facility] INHALER Diagnosis: pnemonia Discharge Exam General Appearance: no apparent distress Neurologic Exam: alert, cooperative Respiratory Exam: prolonged expirations, rhonchi Cardiovascular Exam: regular rate/rhythm, normal heart sounds Gastrointestinal/Abdomen Exam: soft, No tenderness, No mass Extremity Exam: normal inspection, normal range of motion Skin Exam: normal color, warm, dry Final Diagnosis/Problem List - Final Discharge Diagnosis/Problem (1) Choking Current Visit: No Status: Suspected Assessment & Plan: speech to see today, trouble seems to be plugging/secretions. appreciate pulm consult and input Code(s): T17.308A - UNSP FOREIGN BODY IN LARYNX CAUSING OTH INJURY, INIT ENCNTR (2) Alzheimer's dementia with behavioral disturbance Current Visit: No Status: Chronic Code(s): G30.9 - ALZHEIMER'S DISEASE, UNSPECIFIED; F02.81 - DEMENTIA IN OTH DISEASES CLASSD ELSWHR W BEHAVIORAL DISTURB (3) COPD (chronic obstructive pulmonary disease) Current Visit: No Status: Chronic (4) Chronic hypoxemic respiratory failure Current Visit: No Status: Chronic (5) Acute and chronic respiratory failure with hypercapnia Current Visit: Yes Status: Acute Assessment & Plan: home with bipap, qualified for new concentrator up to 10Lpm flow Code(s): J96.22 - ACUTE AND CHRONIC RESPIRATORY FAILURE WITH HYPERCAPNIA - Discharge Disposition: Home, Self-Care Condition: Fair Prescriptions: Continue Apixaban [Eliquis 5 mg Tablet] 2.5 mg PO BID Bumetanide 1 mg [Bumex 1 mg] 1 mg PO DAILY Memantine HCl 5 mg PO QHS PANTOPRAZOLE 40 mg Tablet [Protonix 40MG Tablet] 40 mg PO DAILY Losartan Potassium [Cozaar] 100 mg PO DAILY Folic Acid 1 mg [Folate 1 mg] 1 mg PO DAILY Donepezil HCl [Aricept] 5 mg PO DAILY Amlodipine Besylate 5 mg [Norvasc 5 mg] 5 mg PO DAILY Atorvastatin Calcium 40 mg PO HS Nitroglycerin 0.4 mg Tablet [Nitrostat 0.4 MG Tablet] 1 tablet SL UD PRN PRN Reason: Chest Pain OLANZapine [Olanzapine] 10 mg PO HS Insulin Glargine,Hum.rec.anlog [Lantus] 1 unit SQ UD Escitalopram Oxalate 10 mg [Lexapro 10 MG] 10 mg PO DAILY Aspirin 81 gm Chew [Baby Aspirin 81 mg Chew] 81 mg PO DAILY Cholecalciferol (Vitamin D3) [Vitamin D3] 10,000 unit PO WEEKLY Insulin Lispro [Humalog] 1 unit SQ UD Potassium Chloride 7.5 ml PO BID Guaifenesin [Mucinex] 600 mg PO BID Fluticasone/Umeclidin/Vilanter [Trelegy Ellipta 100-62.5-25] 1 puff IH DAILY Follow up with: JANNETTE YADAV MD [Primary Care Provider] -
[2021-07-11 14:25] VITALS: BP 140/68; PULSE 60; O2SAT 92
== END 2021-07-11 14:09 | disposition home or self-care (01) ==
LOC: ED 16:44 → MED SURG 21:56
PROVIDERS: ADMIT Family Medicine; ATTEND Family Medicine
DX: T17.308A Unspecified foreign body in larynx causing other injury, initial encounter (principal); G30.9 Alzheimer's disease, unspecified; F02.81 Dementia in other diseases classified elsewhere, unspecified severity, with behavioral disturbance; J44.9 Chronic obstructive pulmonary disease, unspecified; J96.11 Chronic respiratory failure with hypoxia; J96.02 Acute respiratory failure with hypercapnia; J69.0 Pneumonitis due to inhalation of food and vomit; E11.9 Type 2 diabetes mellitus without complications; I11.0 Hypertensive heart disease with heart failure; I50.9 Heart failure, unspecified; E66.9 Obesity, unspecified; Z79.899 Other long term (current) drug therapy; Z20.828 Contact with and (suspected) exposure to other viral communicable diseases
CPT/HCPCS: 0241U; 36000; 36415; 36600; 71045; 80053; 82375; 82803; 82947; 83605; 83735; 83880; 84484; 85025; 87040; 92610; 93005; 94002; 94003; 94640; 94762; 99285; G0378; J1650; J2543; J7609; A9270-GY

== ENCOUNTER 2022-01-29 21:38 | Emergency (ER) | payer MEDICARE, OTHER ==
[2022-01-29] MEDS ORDERED: NORCO 5/325 MG PO ONE (22:05)
--- NOTE | 2022-01-29 22:11 | ERPHSYRPT ---
- History of Present Illness Time Seen by Provider: 01/29/22 21:47 Source: patient Exam Limitations: no limitations Physician History: 81 years old female with multiple medical problems including atrial fibrillation status post pacemaker placement on Eliquis, hypertension, hyperlipidemia, diabetes mellitus, COPD with chronic respiratory failure on 2 L oxygen presented in the ER with chief complaint of left lateral/posterior chest wall and left flank pain after she slipped on wet floor while getting out of bathtub and fell backward and hit her chest and flank 4 days ago. She did not hit her head, no loss of consciousness. Daughter has been giving her [id number] pain medication and she was doing better until today and she requested to be seen. She is complaining of pain in the left lower chest wall with deep breathing and movements. No obvious difficulty breathing noticed and is maintaining oxygen saturation around 97% on 2 L. No vomiting or diarrhea reported. Occurred: days ago (4) Reason for Fall: slipped Injuries/Pain Location: chest, abdomen Loss of Consciousness: no loss of consciousness Quality: sharpness Severity of Pain-Max: moderate Severity of Pain-Current: moderate Modifying Factors: Worsens With: movement Associated Symptoms (Fall): chest pain, No extremity injury, No shortness of breath, No slurred speech Allergies/Adverse Reactions: carvedilol Allergy (Verified 03/22/21 11:52) Home Medications: Amlodipine Besylate 5 mg [Norvasc 5 mg] 5 mg PO DAILY 02/08/18 [History] Apixaban [Eliquis 5 mg Tablet] 2.5 mg PO BID 02/08/18 [History] Atorvastatin Calcium 40 mg PO HS 02/08/18 [History] Bumetanide 1 mg [Bumex 1 mg] 1 mg PO DAILY 02/08/18 [History] Donepezil HCl [Aricept] 5 mg PO DAILY 02/08/18 [History] Folic Acid 1 mg [Folate 1 mg] 1 mg PO DAILY 02/08/18 [History] Losartan Potassium [Cozaar] 100 mg PO DAILY 02/08/18 [History] Memantine HCl 5 mg PO QHS 02/08/18 [History] Nitroglycerin 0.4 mg Tablet [Nitrostat 0.4 MG Tablet] 1 tablet SL UD PRN 02/08/18 [History] PANTOPRAZOLE 40 mg Tablet [Protonix 40MG Tablet] 40 mg PO DAILY 02/08/18 [History] OLANZapine [Olanzapine] 10 mg PO HS 02/27/19 [History] Insulin Glargine,Hum.rec.anlog [Lantus] 1 unit SQ UD 04/19/19 [History] Aspirin 81 gm Chew [Baby Aspirin 81 mg Chew] 81 mg PO DAILY 08/30/19 [History] Escitalopram Oxalate [Lexapro] 10 mg PO DAILY 08/30/19 [History] Cholecalciferol (Vitamin D3) [Vitamin D3] 10,000 unit PO WEEKLY 08/31/19 [H istory] Insulin Lispro [Humalog] 1 unit SQ UD 08/31/19 [History] Potassium Chloride 7.5 ml PO BID 07/01/21 [History] Fluticasone/Umeclidin/Vilanter [Trelegy Ellipta 100-62.5-25] 1 puff IH DAILY 07/09/21 [History] Guaifenesin [Mucinex] 600 mg PO BID 07/09/21 [History] Hx Tetanus, Diphtheria Vaccination/Date Given: Yes Hx Influenza Vaccination/Date Given: Yes Hx Pneumococcal Vaccination/Date Given: Yes Travel Risk - Vaccine Status Have you recieved a Covid-19 vaccination: (unknown) Driver: Unknown - Vaccination Dates Dates if Unknown: unknown - Review of Systems Constitutional: No Symptoms Eyes: No Symptoms Ears, Nose, & Throat: No Symptoms Respiratory: No Symptoms Cardiac: Chest Pain Abdominal/Gastrointestinal: Abdominal Pain Genitourinary Symptoms: No Symptoms Musculoskeletal: Back Pain, Injury Skin: No Symptoms Neurological: No Symptoms Psychological: No Symptoms Endocrine: No Symptoms Hematologic/Lymphatic: No Symptoms Immunological/Allergic: No Symptoms - Past Medical History Pertinent Past Medical History: Yes Neurological History: Alzheimer's Disease, Dementia, Peripheral Neuropathy, Stroke ENT History: Cataracts Cardiac History: Hypertension Respiratory History: CHF, COPD, Sleep Apnea, Other Endocrine Medical History: Diabetes Type II Musculoskeletal History: Arthritis GI Medical History: Diverticulitis, Irritable Bowel History: No Pertinent History, Renal Disease Psycho-Social History: No Pertinent History Female Reproductive Disorders: No Pertinent History, Other Other Medical History: pt family states pt noncompliant with cpap, ovarian cysts - Past Surgical History Past Surgical History: Yes Neuro Surgical History: No Pertinent History Cardiac: No Pertinent History, Internal Defibrillator, Pacemaker Respiratory: No Pertinent History Gastrointestinal: No Pertinent History Genitourinary: Other Musculoskeletal: No Pertinent History Female Surgical History: Tubal Ligation Other Surgical History: ear surgery, cataract surgery, bladder tuck,lasik surgery. Kidney removed - Social History Smoking Status: Former smoker How long have you smoked: 50 Exposure to second hand smoke: No Drug Use: none Patient Lives Alone: No Significant Family History: no pertinent family hx - Nursing Vital Signs Nursing Vital Signs: Initial Vital Signs Temperature 98.4 F 01/29/22 22:03 Pulse Rate 75 01/29/22 22:03 Respiratory Rate 22 01/29/22 22:03 Blood Pressure 158/113 01/29/22 22:03 O2 Sat by Pulse Oximetry 97 01/29/22 22:03 Pain Scale Pain Intensity 4 - [place] Coma Score Best Eye Response ([place]): (4) open spontaneously Best Verbal Response ([place]): (5) oriented Best Motor Response ([place]): (6) obeys commands [place]ana Total: 15 - Physical Exam General Appearance: no apparent distress, alert Head Injury: no evidence of injury Eye Exam: eyes nml inspection ENT Exam: airway nml, No evidence of ENT injury, No dental injury Neck Exam: supple, trachea midline, full range of motion, normal alignment Respiratory/Chest Exam: chest tenderness (Left lower lateral and posterior, left flank with bruising. No crepitus.), wheezing, No respiratory distress Cardiovascular Exam: normal heart sounds, regular rate/rhythm Gastrointestinal Exam: soft, normal bowel sounds, tenderness (Left flank area) Back Exam: other (Bruising left flank) Extremity Exam: normal inspection, normal range of motion Neurologic Exam: alert, oriented x 3, cooperative, renal dialysis technician II-XII nml as tested Skin Exam: normal color SpO2 Interpretation: O2 applied SpO2: 97 O2 Delivery: Nasal Cannula (2 L) Ordered Tests: Active Orders 24 hr Category Date Time Status EKG-ER Only STAT Care 01/29/22 22:09 Active ABDOMEN AND PELVIS W/0 CONTRAS [CT] Stat Exams 01/29/22 22:41 Taken CHEST WITHOUT CONTRAST [CT] Stat Exams 01/29/22 22:04 Taken CBC W DIFF Stat Lab 01/29/22 22:45 Completed CMP Stat Lab 01/29/22 22:45 Completed TROPONIN Q3H Lab 01/29/22 22:45 Completed TROPONIN Q3H Lab 01/30/22 01:15 Ordered TROPONIN Q3H Lab 01/30/22 04:15 Ordered TROPONIN Q3H Lab 01/30/22 07:15 Ordered TROPONIN Q3H Lab 01/30/22 10:15 Ordered UA W/RFX CULTURE Stat Lab 01/29/22 Ordered Medication Summary Discontinued Medications Generic Name Dose Route Start Last Admin Trade Name Michelle PRN Reason Stop Dose Admin Hydrocodone Bitart/Acetaminophen 1 tab 01/29/22 22:05 01/29/22 22:37 Hydrocodone/Apap 5/325 Mg Tablet PO 01/29/22 22:06 1 tab STAT ONE Administration Hydrocodone Bitart/Acetaminophen Confirm 01/29/22 22:37 Hydrocodone/Apap 5/325 Mg Tablet Administered 01/29/22 22:38 Dose 1 tab .ROUTE .STK-MED ONE Hydralazine HCl 5 mg 01/30/22 00:33 01/30/22 00:34 Hydralazine Hcl 20 Mg/Ml Vial IV 01/30/22 00:34 5 mg STAT ONE Administration Hydralazine HCl Confirm 01/30/22 00:32 Hydralazine Hcl 20 Mg/Ml Vial Administered 01/30/22 00:33 Dose 20 mg .ROUTE .STK-MED ONE Lab/Rad Data: Laboratory Result Diagrams 01/29/22 22:45 01/29/22 22:45 Laboratory Results 01/29/22 01/29/22 01/29/22 Range/Units 23:40 22:45 22:45 WBC (4.0-10.5) x10^3/uL RBC (4.1-5.4) x10^6/uL Hgb (12.0-16.0) g/dL Hct (35-47) % MCV (78-100) fL MCH (26-32) pg MCHC (32-36) g/dL RDW (11.5-14.0) % Plt Count (150-450) x10^3/uL MPV (7.5-11.0) fL Gran % (36.0-66.0) % Immature Gran % (Auto) (0.00-0.4) % Nucleat RBC Rel Count (0.00-0.1) % Eos # (Auto) (0-0.5) x10^3/uL Immature Gran # (Auto) (0.00-0.03) x10^3u/L Absolute Lymphs (auto) (1.0-4.6) x10^3/uL Absolute Monos (auto) (0.0-1.3) x10^3/uL Absolute Nucleated RBC (0.00-0.01) x10^3u/L Lymphocytes % (24.0-44.0) % Monocytes % (0.0-12.0) % Eosinophils % (0.00-5.0) % Basophils % (0.0-0.4) % Absolute Granulocytes (1.4-6.9) x10^3/uL Basophils # (0-0.4) x10^3/uL Sodium 143 (137-145) mmol/L Potassium 3.4 L (3.5-5.1) mmol/L Chloride 106 (98-107) mmol/L Carbon Dioxide 29 (22-30) mmol/L Anion Gap 10.9 (5-15) MEQ/L BUN 21 H (7-17) mg/dL Creatinine 1.66 H (0.52-1.04) mg/dL Estimated GFR 31.4 ML/MIN Glucose 71 L (74-106) mg/dL Calcium 9.1 (8.4-10.2) mg/dL Total Bilirubin 0.40 (0.2-1.3) mg/dL AST 100 H (14-36) U/L ALT 195 H (0-35) U/L Alkaline Phosphatase 235 H (38-126) U/L Troponin I 0.017 (0.000-0.034) ng/mL Serum Total Protein 7.3 (6.3-8.2) g/dL Albumin 3.5 (3.5-5.0) g/dL ABO Group O Rh Factor POSITIVE Antibody Screen NEGATIVE (NEGATIVE) 01/29/22 Range/Units 22:45 WBC 8.9 (4.0-10.5) x10^3/uL RBC 4.09 L (4.1-5.4) x10^6/uL Hgb 11.2 L (12.0-16.0) g/dL Hct 36.8 (35-47) % MCV 90.0 (78-100) fL MCH 27.4 (26-32) pg MCHC 30.4 L (32-36) g/dL RDW 15.9 H (11.5-14.0) % Plt Count 212 (150-450) x10^3/uL MPV 9.9 (7.5-11.0) fL Gran % 68.2 H (36.0-66.0) % Immature Gran % (Auto) 0.5 H (0.00-0.4) % Nucleat RBC Rel Count 0.0 (0.00-0.1) % Eos # (Auto) 0.29 (0-0.5) x10^3/uL Immature Gran # (Auto) 0.04 H (0.00-0.03) x10^3u/L Absolute Lymphs (auto) 1.56 (1.0-4.6) x10^3/uL Absolute Monos (auto) 0.85 (0.0-1.3) x10^3/uL Absolute Nucleated RBC 0.00 (0.00-0.01) x10^3u/L Lymphocytes % 17.6 L (24.0-44.0) % Monocytes % 9.6 (0.0-12.0) % Eosinophils % 3.3 (0.00-5.0) % Basophils % 0.8 (0.0-0.4) % Absolute Granulocytes 6.05 (1.4-6.9) x10^3/uL Basophils # 0.07 (0-0.4) x10^3/uL Sodium (137-145) mmol/L Potassium (3.5-5.1) mmol/L Chloride (98-107) mmol/L Carbon Dioxide (22-30) mmol/L Anion Gap (5-15) MEQ/L BUN (7-17) mg/dL Creatinine (0.52-1.04) mg/dL Estimated GFR ML/MIN Glucose (74-106) mg/dL Calcium (8.4-10.2) mg/dL Total Bilirubin (0.2-1.3) mg/dL AST (14-36) U/L ALT (0-35) U/L Alkaline Phosphatase (38-126) U/L Troponin I (0.000-0.034) ng/mL Serum Total Protein (6.3-8.2) g/dL Albumin (3.5-5.0) g/dL ABO Group Rh Factor Antibody Screen (NEGATIVE) - Progress Progress: improved, re-examined Progress Note: 01/29/22 23:39 She is given symptomatic treatment for pain. She has a stable H&H. Stable renal function with CKD. CT chest showed left eighth rib displaced fracture but known pneumohemothorax. On the right has collapsed lower lobe secondary to possible bronchus mucous plug, review of her previous x-ray showed that she had a similar kind of findings on the chest x-ray in the past. Her multiple aneurysmal dilatation of descending aorta and does have contained hematoma with AAA rupture in the intra abdomen. [facility] transfer line is called and images are uploaded. 01/30/22 00:[address] Polanco at [facility] cardiovascular surgery, reviewed history, wants CT findings, recommended obtaining CTA as he was not convinced based on noncontrast CT that patient has an actual bleeding. Also has another patient on the table currently and cannot except her for transfer if she has active bleed. If she does not have active bleed then [facility] is on diversion. I discussed about obtaining CTA with family, patient has a radical nephrectomy and has 1 kidney with a creatinine of 1.6 and GFR of 31 and they are reluctant to have her contrast unless we have a clear plan of transfer. [place] transfer center is called. 01/30/22 00:[address] Corbin at [facility] cardiovascular surgery, reviewed history, work-up, agreed with transfer to [facility]. We will give her hydralazine to lower her pressure as her heart rate is already 60s, will not give beta-raven. Plan discussed with patient and family who understand and agree with it. Discussed with DrMelissa: Other Counseled pt/family regarding: lab results, diagnosis, rad results - Departure Departure Disposition: Transfer Clinical Impression: AAA (abdominal aortic aneurysm, ruptured), Mass, ovarian, Left rib fracture, Fall Condition: Serious Critical Care Time: Yes Critical Care Time(excluding separately billable procedures): Critical 30-74 mins Referrals: JANNETTE YADAV MD [Primary Care Provider] - Follow up/PCP as directed
[2022-01-29] MEDS ORDERED: NORCO 5/325 MG ONE (22:37)
[2022-01-29 22:52] LABS: Absolute Neutrophil Ct (ANC) 6.05 x10^3/uL (1.4-6.9); Basophil (Absolute #) 0.07 x10^3/uL (0-0.4); Eosinophil % 3.3 % (0.00-5.0); Eosinophil (Absolute #) 0.29 x10^3/uL (0-0.5); Hematocrit 36.8 % (35-47); Hemoglobin 11.2 g/dL (12.0-16.0); Lymphocyte (Absolute #) 1.56 x10^3/uL (1.0-4.6); Lymphocytes % 17.6 % (24.0-44.0); Mean Corpuscular Hemoglobin 27.4 pg (26-32); Mean Corpuscular Hgb Concent. 30.4 g/dL (32-36); Mean Platelet Volume 9.9 fL (7.5-11.0); Monocyte (Absolute #) 0.85 x10^3/uL (0.0-1.3); Monocytes % 9.6 % (0.0-12.0); Neutrophil % 68.2 % (36.0-66.0); Platelet Count 212 x10^3/uL (150-450); Red Blood Count 4.09 x10^6/uL (4.1-5.4); Red Cell Distribution Width 15.9 % (11.5-14.0); White Blood Count 8.9 x10^3/uL (4.0-10.5)
[2022-01-29 23:03] LABS: ALBUMIN 3.5 g/dL (3.5-5.0); ANION GAP 10.9 MEQ/L (5-15); BILIRUBIN,TOTAL 0.4 mg/dL (0.2-1.3); Calcium 9.1 mg/dL (8.4-10.2); Creatinine 1 1.66 mg/dL (0.52-1.04); EST GLOMERULAR FILTRATION RATE 31.4 ML/MIN; Potassium 3.4 mmol/L (3.5-5.1); Total Protein 7.3 g/dL (6.3-8.2)
[2022-01-30 00:25] LABS: ABO TYPING O; Antibody Screen NEGATIVE (NEGATIVE); RH TYPING POSITIVE
[2022-01-30] MEDS ORDERED: APRESOLINE 20 MG/ML INJ ONE (00:32)
[2022-01-30] MEDS ORDERED: APRESOLINE 20 MG/ML INJ IV ONE ×2 (00:33→00:53)
[2022-01-30 01:39] VITALS: O2SAT 98
[2022-01-30 01:40] VITALS: BP 130/92; PULSE 64
--- NOTE | 2022-01-30 08:59 | XRAY ---
Indication: Left chest and abdomen pain following fall 4 days ago. Multiple contiguous axial images obtained through the chest without contrast. Comparison: June 30, 2021 Heart remains enlarged again with left dual-lead pacemaker. Aorta remains markedly arteriosclerotic with grossly stable tortuous descending aorta and descending aortic saccular aneurysm. Lack of IV contrast precludes further characterization. No pathologic mediastinal lymphadenopathy. Lungs again demonstrates bilateral lower lobe atelectasis improved on the left and unchanged on the right. Again opacification of the distal right lower lobe bronchus suggests postobstructive atelectasis. Tiny left effusion. Stable tiny right middle lobe calcified granuloma. No pneumothorax. Bony thorax again demonstrate osteopenia and degenerative changes throughout the spine. New nondisplaced left 8/[address] abdomen/pelvis reported separately. Impression: 1. New left 8/9 rib fractures with tiny hemothorax. No pneumothorax. 2. Again bilateral lower lobe atelectasis improved in the left and unchanged on the right. There remains opacification right lower lobe bronchi suggesting postobstructive atelectasis. Again rule out aspiration pneumonia. 3. Grossly stable cardiomegaly, significant arteriosclerotic disease, tortuous descending aorta with saccular aneurysm, chronic bony findings, and old granulomatous disease. Comment: Preliminary interpretation made by [facility]. No critical discrepancy.
--- NOTE | 2022-01-30 09:29 | XRAY ---
Indication: Left chest and abdomen pain following fall 4 days ago. Multiple contiguous axial images obtained through the abdomen and pelvis without contrast. Comparison: February 27, 2019 CT chest reported separately. Mild diffuse respiration artifact degrades study. Stomach is now mildly distended with food/fluid. Noncontrasted stomach and bowel loops appear nonobstructed. Again scattered descending and sigmoid diverticulosis without diverticulitis. New bilateral pelvic multiloculated cystic masses favored to be ovarian in etiology. Complex left ovary cystic mass measures 11.4 x 8.6 x 7.9 cm and the right measures 6.3 x 5.7 x 5.1 cm. Again left nephrectomy. Right kidney demonstrates at least 2 new cortical cysts, largest 2 cm. Interval cholecystectomy. No free fluid/air. There is again extensive scattered vascular calcifications with tortuous/ectatic aorta. Infrarenal aorta demonstrates new eccentric fusiform aneurysm up to 6.8 cm in diameter. Finding also demonstrates eccentric hematoma measuring at least 4.1 x 2.3 x 1.6 cm concerning for contained aortic rupture. Remaining liver, pancreas, spleen, adrenal glands, right kidney, right ureter, and bladder are unremarkable for noncontrast exam. Osseous structures intact again with osteopenia, mild/moderate degenerative changes throughout the spine, and small left sacrum bone island. Impression: 1. Respiration artifact. 2. Again extensive arteriosclerotic disease with new infrarenal AAA and eccentric hematoma concerning for contained aortic rupture. 3. New large complex bilateral ovary cysts worrisome for malignancy. 4. New right renal cysts. 5. Again chronic findings including colonic diverticulosis, left nephrectomy, and chronic bony findings. Comment: Preliminary interpretation made by [facility]. No critical discrepancy.
== END 2022-01-30 01:57 | disposition short-term general hospital (02) ==
LOC: ED 21:38
DX: I71.3 Abdominal aortic aneurysm, ruptured (principal); N83.8 Other noninflammatory disorders of ovary, fallopian tube and broad ligament; S27.2XXA Traumatic hemopneumothorax, initial encounter; S22.32XA Fracture of one rib, left side, initial encounter for closed fracture; W18.2XXA Fall in (into) shower or empty bathtub, initial encounter; Y93.E1 Activity, personal bathing and showering; Y92.002 Bathroom of unspecified non-institutional (private) residence as the place of occurrence of the external cause; E78.5 Hyperlipidemia, unspecified; I12.9 Hypertensive chronic kidney disease with stage 1 through stage 4 chronic kidney disease, or unspecified chronic kidney disease; N18.9 Chronic kidney disease, unspecified; J44.9 Chronic obstructive pulmonary disease, unspecified; Z99.81 Dependence on supplemental oxygen; J96.10 Chronic respiratory failure, unspecified whether with hypoxia or hypercapnia; E11.42 Type 2 diabetes mellitus with diabetic polyneuropathy; Z79.4 Long term (current) use of insulin; Z79.01 Long term (current) use of anticoagulants; Z79.899 Other long term (current) drug therapy
CPT/HCPCS: 36000; 36415; 71250; 74176; 80053; 84484; 85025; 86850; 86900; 86901; 93005; 96374; 99285; J0360; A9270-GY

== ENCOUNTER 2022-05-11 21:39 | Inpatient (IN) | payer MEDICARE, OTHER ==
--- NOTE | 2022-05-11 21:45 | ERPHSYRPT ---
- History of Present Illness Time Seen by Provider: 05/11/22 21:44 Source: patient Exam Limitations: clinical condition Physician History: This is a morbidly obese 82-year-old white female patient of Dr. Yadav who presents via ambulance with productive cough of yellowish thick sputum and associated weakness. Patient's daughter came by the house today to give the patient a bath but was unable to do so because the patient is so weak and could not help herself or her daughter. Patient has a history of atrial fibrillation on Eliquis, she has a pacemaker in place, she has hypertension, hyperlipidemia, diabetes, COPD that is oxygen dependent with 2 L via nasal cannula, CHF and Alzheimer's dementia. She has a history of stroke in the past and has chronic peripheral neuropathy. Severity: moderate Associated Symptoms: cough, weakness Allergies/Adverse Reactions: carvedilol Allergy (Verified 05/11/22 21:53) Home Medications: Amlodipine Besylate 5 mg [Norvasc 5 mg] 5 mg PO DAILY 02/08/18 [History] Apixaban [Eliquis 5 mg Tablet] 2.5 mg PO BID 02/08/18 [History] Atorvastatin Calcium 40 mg PO HS 02/08/18 [History] Bumetanide 1 mg [Bumex 1 mg] 1 mg PO DAILY 02/08/18 [History] Donepezil HCl [Aricept] 5 mg PO DAILY 02/08/18 [History] Folic Acid 1 mg [Folate 1 mg] 1 mg PO DAILY 02/08/18 [History] Losartan Potassium [Cozaar] 100 mg PO DAILY 02/08/18 [History] Memantine HCl 5 mg PO QHS 02/08/18 [History] Nitroglycerin 0.4 mg Tablet [Nitrostat 0.4 MG Tablet] 1 tablet SL UD PRN 02/08/18 [History] PANTOPRAZOLE 40 mg Tablet [Protonix 40MG Tablet] 40 mg PO DAILY 02/08/18 [History] OLANZapine [Olanzapine] 10 mg PO HS 02/27/19 [History] Insulin Glargine,Hum.rec.anlog [Lantus] 1 unit SQ UD 04/19/19 [History] Aspirin 81 gm Chew [Baby Aspirin 81 mg Chew] 81 mg PO DAILY 08/30/19 [History] Escitalopram Oxalate [Lexapro] 10 mg PO DAILY 08/30/19 [History] Cholecalciferol (Vitamin D3) [Vitamin D3] 10,000 unit PO WEEKLY 08/31/19 [History] Insulin Lispro [Humalog] 1 unit SQ UD 08/31/19 [History] Potassium Chloride 7.5 ml PO BID 07/01/21 [History] Fluticasone/Umeclidin/Vilanter [Trelegy Ellipta 100-62.5-25] 1 puff IH DAILY 07/09/21 [History] Guaifenesin [Mucinex] 600 mg PO BID 07/09/21 [History] Hx Tetanus, Diphtheria Vaccination/Date Given: Yes Hx Influenza Vaccination/Date Given: Yes Hx Pneumococcal Vaccination/Date Given: Yes Travel Risk - International Travel Have you traveled outside of the country in past 3 weeks: No - Coronavirus Screening Are you exhibiting any of the following symptoms?: Yes Symptoms: Cough: New Onset Close contact with a COVID-19 positive Pt in past 14-21 Days: No - Vaccine Status Have you recieved a Covid-19 vaccination: (unknown) H[employer]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 [employer]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 - Vaccination Dates Dates if Unknown: unknown - Review of Systems Constitutional: Weakness Eyes: No Symptoms Ears, Nose, & Throat: No Symptoms Respiratory: Cough Cardiac: No Symptoms Abdominal/Gastrointestinal: No Symptoms Genitourinary Symptoms: No Symptoms Musculoskeletal: No Symptoms Skin: No Symptoms Neurological: No Symptoms Psychological: No Symptoms Endocrine: No Symptoms Hematologic/Lymphatic: No Symptoms Immunological/Allergic: No Symptoms All Other Systems: Reviewed and Negative - Past Medical History Pertinent Past Medical History: Yes Neurological History: Alzheimer's Disease, Dementia, Peripheral Neuropathy, Stroke ENT History: Cataracts Cardiac History: Hypertension Respiratory History: CHF, COPD, Sleep Apnea, Other Endocrine Medical History: Diabetes Type II Musculoskeletal History: Arthritis GI Medical History: Diverticulitis, Irritable Bowel History: No Pertinent History, Renal Disease Psycho-Social History: No Pertinent History Female Reproductive Disorders: No Pertinent History, Other Other Medical History: pt family states pt noncompliant with cpap, ovarian cysts - Past Surgical History Past Surgical History: Yes Neuro Surgical History: No Pertinent History Cardiac: No Pertinent History, Internal Defibrillator, Pacemaker Respiratory: No Pertinent History Gastrointestinal: No Pertinent History Genitourinary: Other Musculoskeletal: No Pertinent History Female Surgical History: Tubal Ligation Other Surgical History: ear surgery, cataract surgery, bladder tuck,lasik surgery. Kidney removed - Social History Smoking Status: Former smoker How long have you smoked: 50 Exposure to second hand smoke: No Drug Use: none Patient Lives Alone: No Significant Family History: no pertinent family hx - Nursing Vital Signs Nursing Vital Signs: Initial Vital Signs Temperature 98.4 F 05/11/22 21:43 Pulse Rate 67 05/11/22 21:43 Respiratory Rate 22 05/11/22 21:43 Blood Pressure 129/70 05/11/22 21:43 O2 Sat by Pulse Oximetry 97 05/11/22 21:43 Pain Scale Pain Intensity 4 - Physical Exam General Appearance: no apparent distress, alert, anxiety, obese Eye Exam: PERRL/EOMI, eyes nml inspection Ears, Nose, Throat Exam: normal ENT inspection, moist mucous membranes Neck Exam: normal inspection, non-tender, supple, full range of motion Respiratory Exam: airway intact, rhonchi (Bilateral left greater than right), No chest tenderness, No respiratory distress Cardiovascular Exam: regular rate/rhythm, normal heart sounds, normal peripheral pulses Gastrointestinal/Abdomen Exam: soft, normal bowel sounds, No tenderness Pelvic Exam: not done Rectal Exam: not done Back Exam: normal inspection, normal range of motion, No CVA tenderness, No vertebral tenderness Extremity Exam: normal inspection, normal range of motion, pelvis stable Neurologic Exam: alert, oriented x 3, cooperative, harpooner II-XII nml as tested, normal mood/affect Skin Exam: normal color, warm, dry Lymphatic Exam: No adenopathy SpO2 Interpretation: normal O2 Delivery: Room Air - Course Nursing assessment & vital signs reviewed: Yes Ordered Tests: Active Orders 24 hr Category Date Time Status Post Tensioning Ironworker 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 STAT Care 05/11/22 21:55 Active EKG-ER Only STAT Care 05/11/22 21:55 Active IV Insertion STAT Care 05/11/22 21:55 Active Pulse Oximetry (ED) STAT Care 05/11/22 21:55 Active CHEST 1 VIEW (PORTABLE) Routine Exams 05/11/22 22:31 Taken CBC W DIFF Stat Lab 05/11/22 22:30 Completed CMP Stat Lab 05/11/22 22:30 Completed CULTURE,SPUTUM Stat Lab 05/11/22 23:31 Ordered D-DIMER QUANTITATIVE Stat Lab 05/11/22 22:30 Completed NT PRO BNP Stat Lab 05/11/22 22:30 Completed TROPONIN Q4H Lab 05/11/22 22:30 Completed TROPONIN Q4H Lab 05/12/22 02:00 Ordered TROPONIN Q4H Lab 05/12/22 06:00 Ordered Respiratory Therapy Assessment DAILY RT 05/11/22 22:21 Active Transfer Order Routine Transfer 05/12/22 Ordered Medication Summary Generic Name Dose Route Start Last Admin Trade Name Freq PRN Reason Stop Dose Admin Levofloxacin/Dextrose 500 mg in 100 mls @ 100 mls/hr 05/12/22 00:05 Levofloxacin 500mg/100ml D5w IV 05/12/22 01:04 STAT STA Discontinued Medications Generic Name Dose Route Start Last Admin Trade Name Freq PRN Reason Stop Dose Admin Albuterol/Ipratropium Confirm 05/11/22 22:19 Ipratropium/Albuterol Sulfate 3 Ml Ampul.Neb Administered 05/11/22 22:20 Dose 3 ml IH .STK-MED ONE Albuterol/Ipratropium 3 ml 05/11/22 22:21 05/11/22 22:22 Ipratropium/Albuterol Sulfate 3 Ml Ampul.Neb IH 05/11/22 22:22 3 ml STAT ONE Administration Apixaban 2.5 mg 05/12/22 00:05 Apixaban 2.5 Mg Tablet PO 05/12/22 00:06 STAT ONE Lab/Rad Data: Laboratory Result Diagrams 05/11/22 22:30 05/11/22 22:30 Laboratory Results 05/11/22 05/11/22 05/11/22 Range/Units 22:35 22:30 22:30 WBC (4.0-10.5) x10^3/uL RBC (4.1-5.4) x10^6/uL Hgb (12.0-16.0) g/dL Hct (35-47) % MCV (78-100) fL MCH (26-32) pg MCHC (32-36) g/dL RDW (11.5-14.0) % Plt Count (150-450) x10^3/uL MPV (7.5-11.0) fL Gran % (36.0-66.0) % Immature Gran % (Auto) (0.00-0.4) % Nucleat RBC Rel Count (0.00-0.1) % Eos # (Auto) (0-0.5) x10^3/uL Immature Gran # (Auto) (0.00-0.03) x10^3u/L Absolute Lymphs (auto) (1.0-4.6) x10^3/uL Absolute Monos (auto) (0.0-1.3) x10^3/uL Absolute Nucleated RBC (0.00-0.01) x10^3u/L Lymphocytes % (24.0-44.0) % Monocytes % (0.0-12.0) % Eosinophils % (0.00-5.0) % Basophils % (0.0-0.4) % Absolute Granulocytes (1.4-6.9) x10^3/uL Basophils # (0-0.4) x10^3/uL D-Dimer 2.23 H* (0.0-0.50) mg/L Sodium (137-145) mmol/L Potassium (3.5-5.1) mmol/L Chloride (98-107) mmol/L Carbon Dioxide (22-30) mmol/L Anion Gap (5-15) MEQ/L BUN (7-17) mg/dL Creatinine (0.52-1.04) mg/dL Estimated GFR ML/MIN Glucose (74-106) mg/dL Calcium (8.4-10.2) mg/dL Total Bilirubin (0.2-1.3) mg/dL AST (14-36) U/L ALT (0-35) U/L Alkaline Phosphatase (38-126) U/L Troponin I 0.018 (0.000-0.034) ng/mL NT-Pro-B Natriuret Pep (0-1800) pg/mL Serum Total Protein (6.3-8.2) g/dL Albumin (3.5-5.0) g/dL Influenza Type A Ag NEGATIVE (NEGATIVE) Influenza Type B Ag NEGATIVE (NEGATIVE) RSV (PCR) NEGATIVE (Negative) SARS-CoV-2 (PCR) NEGATIVE (NEGATIVE) 05/11/22 05/11/22 Range/Units 22:30 22:30 WBC 13.8 H (4.0-10.5) x10^3/uL RBC 3.98 L (4.1-5.4) x10^6/uL Hgb 11.1 L (12.0-16.0) g/dL Hct 36.9 (35-47) % MCV 92.7 (78-100) fL MCH 27.9 (26-32) pg MCHC 30.1 L (32-36) g/dL RDW 15.7 H (11.5-14.0) % Plt Count 220 (150-450) x10^3/uL MPV 11.5 H (7.5-11.0) fL Gran % 84.1 H (36.0-66.0) % Immature Gran % (Auto) 0.4 (0.00-0.4) % Nucleat RBC Rel Count 0.0 (0.00-0.1) % Eos # (Auto) 0.12 (0-0.5) x10^3/uL Immature Gran # (Auto) 0.06 H (0.00-0.03) x10^3u/L Absolute Lymphs (auto) 0.91 L (1.0-4.6) x10^3/uL Absolute Monos (auto) 1.05 (0.0-1.3) x10^3/uL Absolute Nucleated RBC 0.00 (0.00-0.01) x10^3u/L Lymphocytes % 6.6 L (24.0-44.0) % Monocytes % 7.6 (0.0-12.0) % Eosinophils % 0.9 (0.00-5.0) % Basophils % 0.4 (0.0-0.4) % Absolute Granulocytes 11.64 H (1.4-6.9) x10^3/uL Basophils # 0.06 (0-0.4) x10^3/uL D-Dimer (0.0-0.50) mg/L Sodium 138 (137-145) mmol/L Potassium 4.0 (3.5-5.1) mmol/L Chloride 104 (98-107) mmol/L Carbon Dioxide 22 (22-30) mmol/L Anion Gap 15.5 H (5-15) MEQ/L BUN 50 H (7-17) mg/dL Creatinine 1.91 H (0.52-1.04) mg/dL Estimated GFR 26.7 ML/MIN Glucose 115 H (74-106) mg/dL Calcium 9.1 (8.4-10.2) mg/dL Total Bilirubin 1.20 (0.2-1.3) mg/dL AST 483 H (14-36) U/L ALT 489 H (0-35) U/L Alkaline Phosphatase 355 H (38-126) U/L Troponin I (0.000-0.034) ng/mL NT-Pro-B Natriuret Pep 506 (0-1800) pg/mL Serum Total Protein 7.4 (6.3-8.2) g/dL Albumin 3.7 (3.5-5.0) g/dL Influenza Type A Ag (NEGATIVE) Influenza Type B Ag (NEGATIVE) RSV (PCR) (Negative) SARS-CoV-2 (PCR) (NEGATIVE) - Progress Progress: improved, pain not gone completely Progress Note: 05/12/22 00:02 Chest x-ray shows bibasilar pleural effusions right side worse than left. ? Underlying infiltrate 05/12/22 00:03 Medical decision making: This patient has a significantly elevated D-dimer. Her renal function is too poor to perform a CTA of the chest and therefore we will place the patient in observation and order a VQ scan. Patient has had respiratory failure in the past and she has leukocytosis as well as the underlying pulmonary infiltrate present. She will receive intravenous antib iotics and we will continue her Eliquis as prescribed. I spoke with Dr. Askew who is covering for Dr. Yadav this evening. Discussed with : Clay Counseled pt/family regarding: lab results, diagnosis, rad results - Departure Departure Disposition: Observation Clinical Impression: Pulmonary infiltrate, Elevated d-dimer, Cough productive of yellow sputum Condition: Fair Critical Care Time: No Referrals: JANNETTE YADAV MD [Primary Care Provider] - Follow up/PCP as directed
[2022-05-11] MEDS ORDERED: DUONEB 0.5-3 MG/3 ml Neb IH ONE ×2 (22:19→22:21)
[2022-05-11 22:43] LABS: Absolute Neutrophil Ct (ANC) 11.64 x10^3/uL (1.4-6.9); Basophil (Absolute #) 0.06 x10^3/uL (0-0.4); Eosinophil % 0.9 % (0.00-5.0); Eosinophil (Absolute #) 0.12 x10^3/uL (0-0.5); Hematocrit 36.9 % (35-47); Hemoglobin 11.1 g/dL (12.0-16.0); Lymphocyte (Absolute #) 0.91 x10^3/uL (1.0-4.6); Lymphocytes % 6.6 % (24.0-44.0); Mean Cell Volume 92.7 fL (78-100); Mean Corpuscular Hemoglobin 27.9 pg (26-32); Mean Corpuscular Hgb Concent. 30.1 g/dL (32-36); Mean Platelet Volume 11.5 fL (7.5-11.0); Monocyte (Absolute #) 1.05 x10^3/uL (0.0-1.3); Monocytes % 7.6 % (0.0-12.0); Neutrophil % 84.1 % (36.0-66.0); Platelet Count 220 x10^3/uL (150-450); Red Blood Count 3.98 x10^6/uL (4.1-5.4); Red Cell Distribution Width 15.7 % (11.5-14.0); White Blood Count 13.8 x10^3/uL (4.0-10.5)
[2022-05-11 23:08] LABS: ALBUMIN 3.7 g/dL (3.5-5.0); ANION GAP 15.5 MEQ/L (5-15); BILIRUBIN,TOTAL 1.2 mg/dL (0.2-1.3); Calcium 9.1 mg/dL (8.4-10.2); Creatinine 1 1.91 mg/dL (0.52-1.04); EST GLOMERULAR FILTRATION RATE 26.7 ML/MIN; Total Protein 7.4 g/dL (6.3-8.2)
[2022-05-11 23:23] LABS: INFLUENZA A NEGATIVE (NEGATIVE); INFLUENZA B NEGATIVE (NEGATIVE); RESPIRATORY SYNCTIAL VIRUS NEGATIVE (Negative); SARS-CoV-2 Xpert Express NEGATIVE (NEGATIVE)
[2022-05-12] MEDS ORDERED: Levofloxacin 500MG/100ML D5W 500 MG/100 ML BAG IV STA (00:05)
[2022-05-12] MEDS ORDERED: ELIQUIS 2.5 MG TABLET PO ONE (00:05)
[2022-05-12] MEDS ORDERED: Levofloxacin 500MG/100ML D5W 500 MG/100 ML BAG IV ONE (00:13)
[2022-05-12] MEDS ORDERED: TYLENOL 325 MG PO PRN (02:13)
[2022-05-12 05:08] LABS: Absolute Neutrophil Ct (ANC) 9.17 x10^3/uL (1.4-6.9); Basophil (Absolute #) 0.05 x10^3/uL (0-0.4); Eosinophil % 0.8 % (0.00-5.0); Eosinophil (Absolute #) 0.09 x10^3/uL (0-0.5); Hematocrit 34.8 % (35-47); Hemoglobin 10.7 g/dL (12.0-16.0); Lymphocyte (Absolute #) 0.92 x10^3/uL (1.0-4.6); Lymphocytes % 8.3 % (24.0-44.0); Mean Cell Volume 89.7 fL (78-100); Mean Corpuscular Hemoglobin 27.6 pg (26-32); Mean Corpuscular Hgb Concent. 30.7 g/dL (32-36); Mean Platelet Volume 10.7 fL (7.5-11.0); Monocyte (Absolute #) 0.87 x10^3/uL (0.0-1.3); Monocytes % 7.8 % (0.0-12.0); Neutrophil % 82.3 % (36.0-66.0); Platelet Count 179 x10^3/uL (150-450); Red Blood Count 3.88 x10^6/uL (4.1-5.4); Red Cell Distribution Width 15.9 % (11.5-14.0); White Blood Count 11.1 x10^3/uL (4.0-10.5)
[2022-05-12 05:38] LABS: ALBUMIN 3.8 g/dL (3.5-5.0); ANION GAP 11.7 MEQ/L (5-15); BILIRUBIN,TOTAL 0.8 mg/dL (0.2-1.3); Calcium 9.2 mg/dL (8.4-10.2); Creatinine 1 2.05 mg/dL (0.52-1.04); EST GLOMERULAR FILTRATION RATE 24.6 ML/MIN; Potassium 3.6 mmol/L (3.5-5.1); Total Protein 7.4 g/dL (6.3-8.2)
[2022-05-12] MEDS ORDERED: PROVENTIL 2.5 MG/3 ML NEB IH SCH (07:00)
--- NOTE | 2022-05-12 08:56 | XRAY ---
Indication: Cough, congestion, short of breath, and weakness. Comparison: July 09, 2021 Portable chest demonstrates mild worsening right base consolidating infiltrate/atelectasis/effusion. Also minimal worsening mild left base infiltrate/atelectasis. Heart not enlarged again with left pacemaker and arteriosclerotic/tortuous descending aorta. Bony thorax intact.
[2022-05-12] MEDS: Lactated Ringers 1,000 ML IV SCH ×2 (09:29→17:05)
[2022-05-12] MEDS ORDERED: Tylenol #3 Tablet PO PRN (09:46)
[2022-05-12] MEDS ORDERED: Nitrostat 0.4 MG Tablet SL PRN (09:46)
[2022-05-12] MEDS ORDERED: NON-FORMULARY ITEM (Losartan Potassium [Cozaar] 100 MG Tablet) PO SCH (10:00)
[2022-05-12] MEDS ORDERED: MEDICATION INTERVENTION MC SCH (10:00)
[2022-05-12] MEDS ORDERED: NON-FORMULARY ITEM (Fluticasone/Umeclidin/Vilanter [Trelegy Ellipta 100-62.5-25] 1 EACH Bl IH SCH (10:00)
[2022-05-12] MEDS ORDERED: NON-FORMULARY ITEM (Potassium Chloride [Potassium Chloride] 20 MEQ/15 ML Liquid) PO SCH (10:00)
[2022-05-12] MEDS: FOLATE 1 MG PO SCH (10:35)
[2022-05-12] MEDS: ECOTRIN 81 MG PO SCH (10:35)
[2022-05-12] MEDS: Lexapro PO SCH (10:36)
[2022-05-12] MEDS: Lantus Insulin SQ SCH ×2 (10:36→21:31)
[2022-05-12] MEDS: Protonix 40MG Tablet PO SCH (10:36)
[2022-05-12] MEDS: ELIQUIS 2.5 MG TABLET PO SCH ×2 (10:36→21:31)
[2022-05-12] MEDS: Klor Con PO SCH ×2 (10:36→21:31)
[2022-05-12] MEDS: Cozaar 50 MG PO SCH (10:42)
[2022-05-12] MEDS: NORVASC 5 MG PO SCH (10:42)
[2022-05-12] MEDS: HUMALOG SQ SCH ×3 (11:40→17:20)
[2022-05-12] MEDS ORDERED: NON-FORMULARY ITEM (Insulin Lispro 1 UNIT Ml) SQ SCH (12:00)
[2022-05-12] MEDS: DUONEB 0.5-3 MG/3 ml Neb IH SCH ×2 (13:22→18:57)
[2022-05-12] MEDS ORDERED: HUMALOG SQ PRN (16:22)
[2022-05-12] MEDS: zyPREXA 5MG TABLET PO SCH (17:05)
--- NOTE | 2022-05-12 17:30 | PCM.HP ---
History of Present Illness - Chief Complaint Chief Complaint: pulmonary infliltrates, elevated d-drimer, productive cough History of Present Illness: is a 82 year old female pt of Dr. Rouse who lives at home, brought in by family who found her unable to assist with transfer etc at home. She has PMHx Alzheimers dementia, COPD, obesity, HTN, DM. She was found to have pneumonia in ER and admitted. Also had elevated d-dimer. She has been coughing up thick yellow sputum. Unable to give me any history as she is not oriented to place. Does not speak clearly and is hard to understand. - Review of Systems All Other Systems: Unable due to dementia Medications & Allergies Home Medications: Home Medication List Amlodipine Besylate 5 mg [Norvasc 5 mg] 5 mg PO DAILY 02/08/18 [History Confirmed 05/12/22] Apixaban [Eliquis 5 mg Tablet] 2.5 mg PO BID 02/08/18 [History Confirmed 05/12/22] Atorvastatin Calcium 40 mg PO HS 02/08/18 [History Confirmed 05/12/22] Bumetanide 1 mg [Bumex 1 mg] 1 mg PO DAILY 02/08/18 [History Confirmed 05/12/22] Donepezil HCl [Aricept] 5 mg PO DAILY 02/08/18 [History Confirmed 05/12/22] Folic Acid 1 mg [Folate 1 mg] 1 mg PO DAILY 02/08/18 [History Confirmed 05/12/22] Losartan Potassium [Cozaar] 100 mg PO DAILY 02/08/18 [History Confirmed 05/12/22] Memantine HCl 5 mg PO QHS 02/08/18 [History Confirmed 05/12/22] Nitroglycerin 0.4 mg Tablet [Nitrostat 0.4 MG Tablet] 1 tablet SL Q5MIN PRN MR X 3 PRN 02/08/18 [History Confirmed 05/12/22] PANTOPRAZOLE 40 mg Tablet [Protonix 40MG Tablet] 40 mg PO DAILY 02/08/18 [History Confirmed 05/12/22] OLANZapine [Olanzapine] 10 mg PO EVENING MEAL 02/27/19 [History Confirmed 05/12/22] Insulin Glargine,Hum.rec.anlog [Lantus] 30 unit SQ BID 04/19/19 [History Confirmed 05/12/22] Aspirin 81 gm Chew [Baby Aspirin 81 mg Chew] 81 mg PO DAILY 08/30/19 [History Confirmed 05/12/22] Escitalopram Oxalate [Lexapro] 10 mg PO DAILY 08/30/19 [History Confirmed 05/12/22] Insulin Lispro [Humalog] 10 unit SQ TIDWM 08/31/19 [History Confirmed 05/12/22] Potassium Chloride 7.5 ml PO BID 07/01/21 [History Confirmed 05/12/22] Fluticasone/Umeclidin/Vilanter [Trelegy Ellipta 100-62.5-25] 1 puff IH DAILY 07/09/21 [History Confirmed 05/12/22] Acetaminophen with Codeine [Acetaminophen-Cod #3 Tablet] 1 each PO Q6HPRN PRN 05/12/22 [History Confirmed 05/12/22] Ergocalciferol (Vitamin D2) [Vitamin D2] 50,000 units PO WEEKLY 05/12/22 [History Confirmed 05/12/22] Ipratropium/Albuterol Sulfate [Iprat-Albut 0.5-3(2.5) mg/3 ml] 1 neb IH TID 05/12/22 [History Confirmed 05/12/22] Allergies/Adverse Reactions: Allergies Allergy/AdvReac Type Severity Reaction Status Date / Time carvedilol Allergy Verified 05/11/22 21:53 - Past Medical History Past Medical History: Yes Neurological History: Alzheimer's Disease, Dementia, Peripheral Neuropathy, Stroke ENT History: Cataracts Cardiac History: Hypertension Respiratory History: CHF, COPD, Sleep Apnea, Other Endocrine Medical History: Diabetes Type II Musculoskelatal History: Arthritis GI Medical History: Diverticulitis, Irritable Bowel History: No Pertinent History, Renal Disease Pyscho-Social History: No Pertinent History Reproductive Disorders: No Pertinent History, Other Comment: pt family states pt noncompliant with cpap, ovarian cysts - Past Surgical History Past Surgical History: Yes Neuro Surgical History: No Pertinent History Cardiac History: No Pertinent History, Internal Defibrillator, Pacemaker Respiratory Surgery: No Pertinent History GI Surgical History: No Pertinent History Genitourinary Surgical Hx: Other Musculskeletal Surgical Hx: No Pertinent History Female Surgical History: Tubal Ligation Other Surgical History: ear surgery, cataract surgery, bladder tuck,lasik surgery. Kidney removed - Social History Smoking Status: Former smoker How long have you smoked: 50 Exposure to second hand smoke: No Alcohol: None Drug Use: none Significant Family History: no pertinent family hx - Physical Exam Vital Signs: Vital Signs - 24 hr Temp Pulse Resp BP Pulse Ox 05/12/22 16:00 97.5 F 69 17 109/55 96 05/12/22 13:22 63 18 93 L 05/12/22 11:42 97.5 F 59 L 18 130/71 97 05/12/22 07:18 97.0 F 61 17 119/59 96 05/12/22 06:41 66 20 96 05/12/22 04:24 66 18 95 05/12/22 04:00 96.2 F 66 18 117/59 95 05/12/22 02:39 96.2 F 69 117/59 96 05/12/22 02:00 114/63 05/12/22 01:15 93 H 18 98 05/12/22 00:03 94 H 20 109/72 95 05/11/22 23:31 69 18 109/72 96 05/11/22 22:22 68 22 95 05/11/22 21:43 98.4 F 67 22 129/70 97 General Appearance: no apparent distress, obese Neurologic Exam: alert, slurred speech Eye Exam: eyes nml inspection Ears, Nose, Throat Exam: moist mucous membranes Neck Exam: normal inspection Respiratory Exam: diminished breath sounds (fair air exchange), No cr ackles/rales, No rhonchi, No wheezing Cardiovascular Exam: regular rate/rhythm, normal heart sounds, No murmur Gastrointestinal/Abdomen Exam: soft, normal bowel sounds, tenderness (lower abdomen), No distention, No mass, No guarding, No rebound Back Exam: normal inspection, No rash Extremity Exam: normal inspection, No pedal edema, No swelling Skin Exam: normal color, warm, dry, No rash Wound Assessment: Skin/Wound Assessment Wound/Incision Assessment Start: 05/12/22 03:07 Text: Status: Active Freq: Q6H Protocol: Document 05/12/22 15:00 PARESH (Rec: 11/01/22 15:12 JM [id number]) Wound Photo Photo Taken No Results - Labs Lab/Micro Results: Lab Results-Last 24 Hours 05/11/22 05/11/22 05/11/22 Range/Units 22:30 22:30 22:30 WBC 13.8 H (4.0-10.5) x10^3/uL RBC 3.98 L (4.1-5.4) x10^6/uL Hgb 11.1 L (12.0-16.0) g/dL Hct 36.9 (35-47) % MCV 92.7 (78-100) fL MCH 27.9 (26-32) pg MCHC 30.1 L (32-36) g/dL RDW 15.7 H (11.5-14.0) % Plt Count 220 (150-450) x10^3/uL MPV 11.5 H (7.5-11.0) fL Gran % 84.1 H (36.0-66.0) % Immature Gran % (Auto) 0.4 (0.00-0.4) % Nucleat RBC Rel Count 0.0 (0.00-0.1) % Eos # (Auto) 0.12 (0-0.5) x10^3/uL Immature Gran # (Auto) 0.06 H (0.00-0.03) x10^3u/L Absolute Lymphs (auto) 0.91 L (1.0-4.6) x10^3/uL Absolute Monos (auto) 1.05 (0.0-1.3) x10^3/uL Absolute Nucleated RBC 0.00 (0.00-0.01) x10^3u/L Lymphocytes % 6.6 L (24.0-44.0) % Monocytes % 7.6 (0.0-12.0) % Eosinophils % 0.9 (0.00-5.0) % Basophils % 0.4 (0.0-0.4) % Absolute Granulocytes 11.64 H (1.4-6.9) x10^3/uL Basophils # 0.06 (0-0.4) x10^3/uL D-Dimer 2.23 H* (0.0-0.50) mg/L Sodium 138 (137-145) mmol/L Potassium 4.0 (3.5-5.1) mmol/L Chloride 104 (98-107) mmol/L Carbon Dioxide 22 (22-30) mmol/L Anion Gap 15.5 H (5-15) MEQ/L BUN 50 H (7-17) mg/dL Creatinine 1.91 H (0.52-1.04) mg/dL Estimated GFR 26.7 ML/MIN Glucose 115 H (74-106) mg/dL POC Glucometer (74 to 106) mg/dL Hemoglobin A1c (4.5-6.0) % Calcium 9.1 (8.4-10.2) mg/dL Total Bilirubin 1.20 (0.2-1.3) mg/dL AST 483 H (14-36) U/L ALT 489 H (0-35) U/L Alkaline Phosphatase 355 H (38-126) U/L Troponin I (0.000-0.034) ng/mL NT-Pro-B Natriuret Pep 506 (0-1800) pg/mL Serum Total Protein 7.4 (6.3-8.2) g/dL Albumin 3.7 (3.5-5.0) g/dL Influenza Type A Ag (NEGATIVE) Influenza Type B Ag (NEGATIVE) RSV (PCR) (Negative) SARS-CoV-2 (PCR) (NEGATIVE) 05/11/22 05/11/22 05/12/22 Range/Units 22:30 22:35 02:00 WBC (4.0-10.5) x10^3/uL RBC (4.1-5.4) x10^6/uL Hgb (12.0-16.0) g/dL Hct (35-47) % MCV (78-100) fL MCH (26-32) pg MCHC (32-36) g/dL RDW (11.5-14.0) % Plt Count (150-450) x10^3/uL MPV (7.5-11.0) fL Gran % (36.0-66.0) % Immature Gran % (Auto) (0.00-0.4) % Nucleat RBC Rel Count (0.00-0.1) % Eos # (Auto) (0-0.5) x10^3/uL Immature Gran # (Auto) (0.00-0.03) x10^3u/L Absolute Lymphs (auto) (1.0-4.6) x10^3/uL Absolute Monos (auto) (0.0-1.3) x10^3/uL Absolute Nucleated RBC (0.00-0.01) x10^3u/L Lymphocytes % (24.0-44.0) % Monocytes % (0.0-12.0) % Eosinophils % (0.00-5.0) % Basophils % (0.0-0.4) % Absolute Granulocytes (1.4-6.9) x10^3/uL Basophils # (0-0.4) x10^3/uL D-Dimer (0.0-0.50) mg/L Sodium (137-145) mmol/L Potassium (3.5-5.1) mmol/L Chloride (98-107) mmol/L Carbon Dioxide (22-30) mmol/L Anion Gap (5-15) MEQ/L BUN (7-17) mg/dL Creatinine (0.52-1.04) mg/dL Estimated GFR ML/MIN Glucose (74-106) mg/dL POC Glucometer (74 to 106) mg/dL Hemoglobin A1c (4.5-6.0) % Calcium (8.4-10.2) mg/dL Total Bilirubin (0.2-1.3) mg/dL AST (14-36) U/L ALT (0-35) U/L Alkaline Phosphatase (38-126) U/L Troponin I 0.018 0.020 (0.000-0.034) ng/mL NT-Pro-B Natriuret Pep (0-1800) pg/mL Serum Total Protein (6.3-8.2) g/dL Albumin (3.5-5.0) g/dL Influenza Type A Ag NEGATIVE (NEGATIVE) Influenza Type B Ag NEGATIVE (NEGATIVE) RSV (PCR) NEGATIVE (Negative) SARS-CoV-2 (PCR) NEGATIVE (NEGATIVE) 05/12/22 05/12/22 05/12/22 Range/Units 04:45 04:45 04:45 WBC 11.1 H (4.0-10.5) x10^3/uL RBC 3.88 L (4.1-5.4) x10^6/uL Hgb 10.7 L (12.0-16.0) g/dL Hct 34.8 L (35-47) % MCV 89.7 (78-100) fL MCH 27.6 (26-32) pg MCHC 30.7 L (32-36) g/dL RDW 15.9 H (11.5-14.0) % Plt Count 179 (150-450) x10^3/uL MPV 10.7 (7.5-11.0) fL Gran % 82.3 H (36.0-66.0) % Immature Gran % (Auto) 0.4 (0.00-0.4) % Nucleat RBC Rel Count 0.0 (0.00-0.1) % Eos # (Auto) 0.09 (0-0.5) x10^3/uL Immature Gran # (Auto) 0.04 H (0.00-0.03) x10^3u/L Absolute Lymphs (auto) 0.92 L (1.0-4.6) x10^3/uL Absolute Monos (auto) 0.87 (0.0-1.3) x10^3/uL Absolute Nucleated RBC 0.00 (0.00-0.01) x10^3u/L Lymphocytes % 8.3 L (24.0-44.0) % Monocytes % 7.8 (0.0-12.0) % Eosinophils % 0.8 (0.00-5.0) % Basophils % 0.4 (0.0-0.4) % Absolute Granulocytes 9.17 H (1.4-6.9) x10^3/uL Basophils # 0.05 (0-0.4) x10^3/uL D-Dimer (0.0-0.50) mg/L Sodium 138 (137-145) mmol/L Potassium 3.6 (3.5-5.1) mmol/L Chloride 103 (98-107) mmol/L Carbon Dioxide 27 (22-30) mmol/L Anion Gap 11.7 (5-15) MEQ/L BUN 48 H (7-17) mg/dL Creatinine 2.05 H (0.52-1.04) mg/dL Estimated GFR 24.6 ML/MIN Glucose 182 H (74-106) mg/dL POC Glucometer (74 to 106) mg/dL Hemoglobin A1c (4.5-6.0) % Calcium 9.2 (8.4-10.2) mg/dL Total Bilirubin 0.80 (0.2-1.3) mg/dL AST 362 H (14-36) U/L ALT 435 H (0-35) U/L Alkaline Phosphatase 337 H (38-126) U/L Troponin I 0.019 (0.000-0.034) ng/mL NT-Pro-B Natriuret Pep 586 (0-1800) pg/mL Serum Total Protein 7.4 (6.3-8.2) g/dL Albumin 3.8 (3.5-5.0) g/dL Influenza Type A Ag (NEGATIVE) Influenza Type B Ag (NEGATIVE) RSV (PCR) (Negative) SARS-CoV-2 (PCR) (NEGATIVE) 05/12/22 05/12/22 05/12/22 Range/Units 06:53 07:25 11:34 WBC (4.0-10.5) x10^3/uL RBC (4.1-5.4) x10^6/uL Hgb (12.0-16.0) g/dL Hct (35-47) % MCV (78-100) fL MCH (26-32) pg MCHC (32-36) g/dL RDW (11.5-14.0) % Plt Count (150-450) x10^3/uL MPV (7.5-11.0) fL Gran % (36.0-66.0) % Immature Gran % (Auto) (0.00-0.4) % Nucleat RBC Rel Count (0.00-0.1) % Eos # (Auto) (0-0.5) x10^3/uL Immature Gran # (Auto) (0.00-0.03) x10^3u/L Absolute Lymphs (auto) (1.0-4.6) x10^3/uL Absolute Monos (auto) (0.0-1.3) x10^3/uL Absolute Nucleated RBC (0.00-0.01) x10^3u/L Lymphocytes % (24.0-44.0) % Monocytes % (0.0-12.0) % Eosinophils % (0.00-5.0) % Basophils % (0.0-0.4) % Absolute Granulocytes (1.4-6.9) x10^3/uL Basophils # (0-0.4) x10^3/uL D-Dimer (0.0-0.50) mg/L Sodium (137-145) mmol/L Potassium (3.5-5.1) mmol/L Chloride (98-107) mmol/L Carbon Dioxide (22-30) mmol/L Anion Gap (5-15) MEQ/L BUN (7-17) mg/dL Creatinine (0.52-1.04) mg/dL Estimated GFR ML/MIN Glucose (74-106) mg/dL POC Glucometer 177 H 122 H (74 to 106) mg/dL Hemoglobin A1c 5.75 (4.5-6.0) % Calcium (8.4-10.2) mg/dL Total Bilirubin (0.2-1.3) mg/dL AST (14-36) U/L ALT (0-35) U/L Alkaline Phosphatase (38-126) U/L Troponin I (0.000-0.034) ng/mL NT-Pro-B Natriuret Pep (0-1800) pg/mL Serum Total Protein (6.3-8.2) g/dL Albumin (3.5-5.0) g/dL Influenza Type A Ag (NEGATIVE) Influenza Type B Ag (NEGATIVE) RSV (PCR) (Negative) SARS-CoV-2 (PCR) (NEGATIVE) 05/12/22 Range/Units 16:09 WBC (4.0-10.5) x10^3/uL RBC (4.1-5.4) x10^6/uL Hgb (12.0-16.0) g/dL Hct (35-47) % MCV (78-100) fL MCH (26-32) pg MCHC (32-36) g/dL RDW (11.5-14.0) % Plt Count (150-450) x10^3/uL MPV (7.5-11.0) fL Gran % (36.0-66.0) % Immature Gran % (Auto) (0.00-0.4) % Nucleat RBC Rel Count (0.00-0.1) % Eos # (Auto) (0-0.5) x10^3/uL Immature Gran # (Auto) (0.00-0.03) x10^3u/L Absolute Lymphs (auto) (1.0-4.6) x10^3/uL Absolute Monos (auto) (0.0-1.3) x10^3/uL Absolute Nucleated RBC (0.00-0.01) x10^3u/L Lymphocytes % (24.0-44.0) % Monocytes % (0.0-12.0) % Eosinophils % (0.00-5.0) % Basophils % (0.0-0.4) % Absolute Granulocytes (1.4-6.9) x10^3/uL Basophils # (0-0.4) x10^3/uL D-Dimer (0.0-0.50) mg/L Sodium (137-145) mmol/L Potassium (3.5-5.1) mmol/L Chloride (98-107) mmol/L Carbon Dioxide (22-30) mmol/L Anion Gap (5-15) MEQ/L BUN (7-17) mg/dL Creatinine (0.52-1.04) mg/dL Estimated GFR ML/MIN Glucose (74-106) mg/dL POC Glucometer 165 H (74 to 106) mg/dL Hemoglobin A1c (4.5-6.0) % Calcium (8.4-10.2) mg/dL Total Bilirubin (0.2-1.3) mg/dL AST (14-36) U/L ALT (0-35) U/L Alkaline Phosphatase (38-126) U/L Troponin I (0.000-0.034) ng/mL NT-Pro-B Natriuret Pep (0-1800) pg/mL Serum Total Protein (6.3-8.2) g/dL Albumin (3.5-5.0) g/dL Influenza Type A Ag (NEGATIVE) Influenza Type B Ag (NEGATIVE) RSV (PCR) (Negative) SARS-CoV-2 (PCR) (NEGATIVE) Microbiology 05/11/22 23:31 Gram Stain - Final Sputum - Expectorant Accuchecks Date 05/12/22 Date 05/12/22 Date 05/12/22 Time 16:31 Time 11:40 Time 07:18 - Radiology Impressions Radiology Exams & Impressions: Radiology Procedures Category Date Time Status CHEST 1 VIEW (PORTABLE) Routine Exams 05/11/22 22:31 Completed PULMONARY PERF VENTILATION [NUCMED] Stat Exams 05/14/22 10:00 Ordered - Other Procedures and Tests Respiratory Therapy 05/11/22 22:21 Respiratory Therapy Assessment DAILY 05/12/22 02:13 Oxygen Nasal Cannula 2 lpm 05/12/22 10:22 Respiratory MDI BID 05/12/22 10:24 BiPap/CPAP ROUTINE Assessment/Plan (1) Pneumonia Current Visit: No Status: Acute Assessment & Plan: On IV levaquin day #2. Code(s): J18.9 - PNEUMONIA, UNSPECIFIED ORGANISM (2) Elevated d-dimer Current Visit: Yes Status: Acute Assessment & Plan: scheduled for VQ scan; renal function too low to do CT in ER. Code(s): R79.89 - OTHER SPECIFIED ABNORMAL FINDINGS OF BLOOD CHEMISTRY (3) Weakness Current Visit: No Status: Resolved Code(s): R53.1 - WEAKNESS (4) Alzheimer's dementia with behavioral disturbance Current Visit: No Status: Chronic Code(s): G30.9 - ALZHEIMER'S DISEASE, UNSPECIFIED; F02.81 - DEMENTIA IN OTH DISEASES CLASSD ELSWHR W BEHAVIORAL DISTURB (5) COPD (chronic obstructive pulmonary disease) Current Visit: No Status: Chronic Qualifiers: (6) Diabetes Current Visit: No Status: Chronic Qualifiers: Code(s): E11.9 - TYPE 2 DIABETES MELLITUS WITHOUT COMPLICATIONS (7) Essential hypertension Current Visit: No Status: Chronic Code(s): I10 - ESSENTIAL (PRIMARY) HYPERTENSION
[2022-05-12] MEDS ORDERED: NON-FORMULARY ITEM (Olanzapine [Olanzapine] 10 MG Tablet) PO SCH (18:00)
[2022-05-12] MEDS: Advair Hfa 115/21 Common canister IH SCH (19:07)
[2022-05-12] MEDS: ZOCOR 20MG PO SCH (21:32)
[2022-05-12] MEDS ORDERED: LIPITOR 40MG PO SCH (22:00)
[2022-05-13] MEDS: Lactated Ringers 1,000 ML IV SCH ×2 (02:10→12:08)
[2022-05-13 05:13] LABS: Absolute Neutrophil Ct (ANC) 4.67 x10^3/uL (1.4-6.9); Basophil (Absolute #) 0.05 x10^3/uL (0-0.4); Eosinophil (Absolute #) 0.41 x10^3/uL (0-0.5); Hematocrit 31.5 % (35-47); Hemoglobin 9.5 g/dL (12.0-16.0); Lymphocyte (Absolute #) 1.03 x10^3/uL (1.0-4.6); Lymphocytes % 15.1 % (24.0-44.0); Mean Cell Volume 90.3 fL (78-100); Mean Corpuscular Hemoglobin 27.2 pg (26-32); Mean Corpuscular Hgb Concent. 30.2 g/dL (32-36); Mean Platelet Volume 10.5 fL (7.5-11.0); Monocyte (Absolute #) 0.63 x10^3/uL (0.0-1.3); Monocytes % 9.2 % (0.0-12.0); Neutrophil % 68.4 % (36.0-66.0); Platelet Count 176 x10^3/uL (150-450); Red Blood Count 3.49 x10^6/uL (4.1-5.4); Red Cell Distribution Width 15.9 % (11.5-14.0); White Blood Count 6.8 x10^3/uL (4.0-10.5)
[2022-05-13] MEDS: DUONEB 0.5-3 MG/3 ml Neb IH SCH ×3 (05:16→17:48)
[2022-05-13] MEDS: Advair Hfa 115/21 Common canister IH SCH ×2 (05:20→17:48)
[2022-05-13 05:47] LABS: ANION GAP 8.7 MEQ/L (5-15); Calcium 8.8 mg/dL (8.4-10.2); EST GLOMERULAR FILTRATION RATE 25.3 ML/MIN; Potassium 3.9 mmol/L (3.5-5.1)
--- NOTE | 2022-05-13 07:51 | PCM.NOTE ---
Date and Time: 05/13/22 0749 Subjective Assessment: patient is alert, recognized me this morning. states she is feeling a little better but still not good. she is currently stable on a nasal cannula Objective Exam General Appearance: no apparent distress Neurologic Exam: alert, cooperative Wound Assessment: Skin/Wound Assessment Wound/Incision Assessment Start: 05/12/22 03:07 Text: Status: Active Freq: Q6H Protocol: Document 05/13/22 03:00 TC (Rec: 05/13/22 03:00 TC [id number]) Wound Photo Photo Taken No Respiratory Exam: rhonchi Cardiovascular Exam: regular rate/rhythm Gastrointestinal/Abdomen Exam: soft, No tenderness, No mass Extremity Exam: normal inspection, normal range of motion OBJECTIVE DATA Vital Signs: Vital Signs - 24 hr Temp Pulse Resp BP Pulse Ox 05/13/22 07:33 96.4 F 61 18 138/65 97 05/13/22 05:16 60 22 97 05/13/22 04:00 96.8 F 60 22 126/72 98 05/12/22 23:57 60 05/12/22 19:56 97.1 F 62 20 105/55 96 05/12/22 18:57 60 18 94 L 05/12/22 16:00 97.5 F 69 17 109/55 96 05/12/22 13:22 63 18 93 L 05/12/22 11:42 97.5 F 59 L 18 130/71 97 Pain Assessment - Last Documented Pain Intensity 0 Intake and Output: Intake & Output 05/10/22 05/11/22 05/12/22 05/13/22 11:59 11:59 11:59 11:59 Intake Total 240 2308 Balance 240 2308 Weight 87.6 kg Lab Results: Lab Results-Last 24 Hours 05/12/22 05/12/22 05/12/22 Range/Units 07:25 11:34 16:09 WBC (4.0-10.5) x10^3/uL RBC (4.1-5.4) x10^6/uL Hgb (12.0-16.0) g/dL Hct (35-47) % MCV (78-100) fL MCH (26-32) pg MCHC (32-36) g/dL RDW (11.5-14.0) % Plt Count (150-450) x10^3/uL MPV (7.5-11.0) fL Gran % (36.0-66.0) % Immature Gran % (Auto) (0.00-0.4) % Nucleat RBC Rel Count (0.00-0.1) % Eos # (Auto) (0-0.5) x10^3/uL Immature Gran # (Auto) (0.00-0.03) x10^3u/L Absolute Lymphs (auto) (1.0-4.6) x10^3/uL Absolute Monos (auto) (0.0-1.3) x10^3/uL Absolute Nucleated RBC (0.00-0.01) x10^3u/L Lymphocytes % (24.0-44.0) % Monocytes % (0.0-12.0) % Eosinophils % (0.00-5.0) % Basophils % (0.0-0.4) % Absolute Granulocytes (1.4-6.9) x10^3/uL Basophils # (0-0.4) x10^3/uL Sodium (137-145) mmol/L Potassium (3.5-5.1) mmol/L Chloride (98-107) mmol/L Carbon Dioxide (22-30) mmol/L Anion Gap (5-15) MEQ/L BUN (7-17) mg/dL Creatinine (0.52-1.04) mg/dL Estimated GFR ML/MIN Glucose (74-106) mg/dL POC Glucometer 122 H 165 H (74 to 106) mg/dL Hemoglobin A1c 5.75 (4.5-6.0) % Calcium (8.4-10.2) mg/dL 05/12/22 05/13/22 05/13/22 Range/Units 20:39 04:30 04:30 WBC 6.8 (4.0-10.5) x10^3/uL RBC 3.49 L (4.1-5.4) x10^6/uL Hgb 9.5 L (12.0-16.0) g/dL Hct 31.5 L (35-47) % MCV 90.3 (78-100) fL MCH 27.2 (26-32) pg MCHC 30.2 L (32-36) g/dL RDW 15.9 H (11.5-14.0) % Plt Count 176 (150-450) x10^3/uL MPV 10.5 (7.5-11.0) fL Gran % 68.4 H (36.0-66.0) % Immature Gran % (Auto) 0.6 H (0.00-0.4) % Nucleat RBC Rel Count 0.0 (0.00-0.1) % Eos # (Auto) 0.41 (0-0.5) x10^3/uL Immature Gran # (Auto) 0.04 H (0.00-0.03) x10^3u/L Absolute Lymphs (auto) 1.03 (1.0-4.6) x10^3/uL Absolute Monos (auto) 0.63 (0.0-1.3) x10^3/uL Absolute Nucleated RBC 0.00 (0.00-0.01) x10^3u/L Lymphocytes % 15.1 L (24.0-44.0) % Monocytes % 9.2 (0.0-12.0) % Eosinophils % 6.0 H (0.00-5.0) % Basophils % 0.7 (0.0-0.4) % Absolute Granulocytes 4.67 (1.4-6.9) x10^3/uL Basophils # 0.05 (0-0.4) x10^3/uL Sodium 141 (137-145) mmol/L Potassium 3.9 (3.5-5.1) mmol/L Chloride 107 (98-107) mmol/L Carbon Dioxide 29 (22-30) mmol/L Anion Gap 8.7 (5-15) MEQ/L BUN 42 H (7-17) mg/dL Creatinine 2.00 H (0.52-1.04) mg/dL Estimated GFR 25.3 ML/MIN Glucose 190 H (74-106) mg/dL POC Glucometer 161 H (74 to 106) mg/dL Hemoglobin A1c (4.5-6.0) % Calcium 8.8 (8.4-10.2) mg/dL 05/13/22 Range/Units 07:28 WBC (4.0-10.5) x10^3/uL RBC (4.1-5.4) x10^6/uL Hgb (12.0-16.0) g/dL Hct (35-47) % MCV (78-100) fL MCH (26-32) pg MCHC (32-36) g/dL RDW (11.5-14.0) % Plt Count (150-450) x10^3/uL MPV (7.5-11.0) fL Gran % (36.0-66.0) % Immature Gran % (Auto) (0.00-0.4) % Nucleat RBC Rel Count (0.00-0.1) % Eos # (Auto) (0-0.5) x10^3/uL Immature Gran # (Auto) (0.00-0.03) x10^3u/L Absolute Lymphs (auto) (1.0-4.6) x10^3/uL Absolute Monos (auto) (0.0-1.3) x10^3/uL Absolute Nucleated RBC (0.00-0.01) x10^3u/L Lymphocytes % (24.0-44.0) % Monocytes % (0.0-12.0) % Eosinophils % (0.00-5.0) % Basophils % (0.0-0.4) % Absolute Granulocytes (1.4-6.9) x10^3/uL Basophils # (0-0.4) x10^3/uL Sodium (137-145) mmol/L Potassium (3.5-5.1) mmol/L Chloride (98-107) mmol/L Carbon Dioxide (22-30) mmol/L Anion Gap (5-15) MEQ/L BUN (7-17) mg/dL Creatinine (0.52-1.04) mg/dL Estimated GFR ML/MIN Glucose (74-106) mg/dL POC Glucometer 143 H (74 to 106) mg/dL Hemoglobin A1c (4.5-6.0) % Calcium (8.4-10.2) mg/dL Radiology Exams: Radiology Procedures Category Date Time Status CHEST 1 VIEW (PORTABLE) Routine Exams 05/11/22 22:31 Completed PULMONARY PERF VENTILATION [NUCMED] Stat Exams 05/14/22 10:00 Ordered Assessment/Plan (1) Pneumonia Current Visit: No Status: Acute Assessment & Plan: continue levaquin, clinically stable on 3L oxygen, she wears continuous oxygen at home. Code(s): J18.9 - PNEUMONIA, UNSPECIFIED ORGANISM (2) Atrial fibrillation Current Visit: No Status: Chronic Qualifiers: Atrial fibrillation type: paroxysmal Qualified Code(s): I48.0 - Paroxysmal atrial fibrillation Assessment & Plan: elevated d-dimer so VQ pending due to renal function, covered with eliquis currently Code(s): I48.91 - UNSPECIFIED ATRIAL FIBRILLATION (3) Alzheimer's dementia with behavioral disturbance Current Visit: No Status: Chronic Code(s): G30.9 - ALZHEIMER'S DISEASE, UNSPECIFIED; F02.81 - DEMENTIA IN OTH DISEASES CLASSD ELSWHR W BEHAVIORAL DISTURB (4) COPD (chronic obstructive pulmonary disease) Current Visit: No Status: Chronic Qualifiers: (5) Chronic hypoxemic respiratory failure Current Visit: No Status: Chronic
[2022-05-13] MEDS: ECOTRIN 81 MG PO SCH (10:01)
[2022-05-13] MEDS: Cozaar 50 MG PO SCH (10:01)
[2022-05-13] MEDS: NORVASC 5 MG PO SCH (10:01)
[2022-05-13] MEDS: Klor Con PO SCH ×2 (10:02→21:03)
[2022-05-13] MEDS: FOLATE 1 MG PO SCH (10:02)
[2022-05-13] MEDS: ELIQUIS 2.5 MG TABLET PO SCH ×2 (10:02→21:03)
[2022-05-13] MEDS: Lantus Insulin SQ SCH ×2 (10:02→21:02)
[2022-05-13] MEDS: Protonix 40MG Tablet PO SCH (10:02)
[2022-05-13] MEDS: Lexapro PO SCH (10:02)
[2022-05-13] MEDS: HUMALOG SQ SCH ×3 (10:04→17:22)
[2022-05-13] MEDS: zyPREXA 5MG TABLET PO SCH (17:22)
[2022-05-13] MEDS: ZOCOR 20MG PO SCH (21:03)
[2022-05-13] MEDS ORDERED: Levofloxacin 500MG/100ML D5W 500 MG/100 ML BAG IV SCH (22:00)
[2022-05-14 04:47] LABS: Absolute Neutrophil Ct (ANC) 5.65 x10^3/uL (1.4-6.9); Basophil (Absolute #) 0.06 x10^3/uL (0-0.4); Eosinophil % 6.6 % (0.00-5.0); Eosinophil (Absolute #) 0.54 x10^3/uL (0-0.5); Hematocrit 34.4 % (35-47); Hemoglobin 10.6 g/dL (12.0-16.0); Lymphocytes % 14.6 % (24.0-44.0); Mean Cell Volume 90.5 fL (78-100); Mean Corpuscular Hemoglobin 27.9 pg (26-32); Mean Corpuscular Hgb Concent. 30.8 g/dL (32-36); Mean Platelet Volume 9.9 fL (7.5-11.0); Monocyte (Absolute #) 0.73 x10^3/uL (0.0-1.3); Monocytes % 8.9 % (0.0-12.0); Neutrophil % 68.7 % (36.0-66.0); Platelet Count 214 x10^3/uL (150-450); Red Cell Distribution Width 15.7 % (11.5-14.0); White Blood Count 8.2 x10^3/uL (4.0-10.5)
[2022-05-14 05:11] LABS: ANION GAP 8.4 MEQ/L (5-15); Calcium 8.8 mg/dL (8.4-10.2); Creatinine 1 1.41 mg/dL (0.52-1.04); EST GLOMERULAR FILTRATION RATE 37.9 ML/MIN; Potassium 3.9 mmol/L (3.5-5.1)
[2022-05-14] MEDS: DUONEB 0.5-3 MG/3 ml Neb IH SCH ×3 (05:26→19:02)
[2022-05-14] MEDS: Advair Hfa 115/21 Common canister IH SCH (05:30)
[2022-05-14] MEDS: HUMALOG SQ SCH ×4 (08:16→17:03)
[2022-05-14] MEDS: Lactated Ringers 1,000 ML IV SCH ×2 (08:35→12:01)
--- NOTE | 2022-05-14 09:02 | PCM.NOTE ---
Date and Time: 05/14/22 0900 Subjective Assessment: patient stable on 2L nasal cannula lor not sleeping and on bipap, she has no complaints. labs reviewed Objective Exam General Appearance: no apparent distress Neurologic Exam: alert Wound Assessment: Skin/Wound Assessment Wound/Incision Assessment Start: 05/12/22 03:07 Text: Status: Active Freq: Q6H Protocol: Document 05/14/22 02:58 RB (Rec: 05/14/22 02:59 RB [id number]) Wound/Incision Assessment Right Chest Wound Assessment Shift Assessment Wound Type excoriated Drainage Amount None Wound Bed Greatest Portion Red (Granulation) Comment under bilateral breast is excoriated cleansed well and apply light dusting of baby powder. Left Chest Wound Type excoriated General Appearance Reddened Wound Photo Photo Taken No Respiratory Exam: rhonchi, No respiratory distress Cardiovascular Exam: regular rate/rhythm, normal heart sounds Gastrointestinal/Abdomen Exam: soft, No tenderness, No mass Extremity Exam: normal inspection, normal range of motion OBJECTIVE DATA Vital Signs: Vital Signs - 24 hr Temp Pulse Resp BP Pulse Ox 05/14/22 07:36 97.5 F 74 17 137/67 94 L 05/14/22 05:29 63 22 94 L 05/14/22 03:52 97.9 F 65 21 157/74 95 05/13/22 23:48 97.9 F 64 20 178/75 99 05/13/22 19:49 148/78 05/13/22 19:45 96.4 F 68 15 185/84 95 05/13/22 17:53 66 20 95 05/13/22 16:00 97.3 F 62 18 138/74 97 05/13/22 13:16 76 18 94 L 05/13/22 11:26 96.9 F 72 18 139/72 97 Pain Assessment - Last Documented Pain Intensity 0 Intake and Output: Intake & Output 05/11/22 05/12/22 05/13/22 05/14/22 11:59 11:59 11:59 11:59 Intake Total 240 2548 1827 Balance 240 2548 1827 Weight 87.6 kg 89.7 kg Lab Results: Lab Results-Last 24 Hours 05/13/22 05/13/22 05/13/22 Range/Units 11:18 16:18 20:47 WBC (4.0-10.5) x10^3/uL RBC (4.1-5.4) x10^6/uL Hgb (12.0-16.0) g/dL Hct (35-47) % MCV (78-100) fL MCH (26-32) pg MCHC (32-36) g/dL RDW (11.5-14.0) % Plt Count (150-450) x10^3/uL MPV (7.5-11.0) fL Gran % (36.0-66.0) % Immature Gran % (Auto) (0.00-0.4) % Nucleat RBC Rel Count (0.00-0.1) % Eos # (Auto) (0-0.5) x10^3/uL Immature Gran # (Auto) (0.00-0.03) x10^3u/L Absolute Lymphs (auto) (1.0-4.6) x10^3/uL Absolute Monos (auto) (0.0-1.3) x10^3/uL Absolute Nucleated RBC (0.00-0.01) x10^3u/L Lymphocytes % (24.0-44.0) % Monocytes % (0.0-12.0) % Eosinophils % (0.00-5.0) % Basophils % (0.0-0.4) % Absolute Granulocytes (1.4-6.9) x10^3/uL Basophils # (0-0.4) x10^3/uL Sodium (137-145) mmol/L Potassium (3.5-5.1) mmol/L Chloride (98-107) mmol/L Carbon Dioxide (22-30) mmol/L Anion Gap (5-15) MEQ/L BUN (7-17) mg/dL Creatinine (0.52-1.04) mg/dL Estimated GFR ML/MIN Glucose (74-106) mg/dL POC Glucometer 175 H 183 H 114 H (74 to 106) mg/dL Calcium (8.4-10.2) mg/dL 05/14/22 05/14/22 05/14/22 Range/Units 04:35 04:35 07:27 WBC 8.2 (4.0-10.5) x10^3/uL RBC 3.80 L (4.1-5.4) x10^6/uL Hgb 10.6 L (12.0-16.0) g/dL Hct 34.4 L (35-47) % MCV 90.5 (78-100) fL MCH 27.9 (26-32) pg MCHC 30.8 L (32-36) g/dL RDW 15.7 H (11.5-14.0) % Plt Count 214 (150-450) x10^3/uL MPV 9.9 (7.5-11.0) fL Gran % 68.7 H (36.0-66.0) % Immature Gran % (Auto) 0.5 H (0.00-0.4) % Nucleat RBC Rel Count 0.0 (0.00-0.1) % Eos # (Auto) 0.54 H (0-0.5) x10^3/uL Immature Gran # (Auto) 0.04 H (0.00-0.03) x10^3u/L Absolute Lymphs (auto) 1.20 (1.0-4.6) x10^3/uL Absolute Monos (auto) 0.73 (0.0-1.3) x10^3/uL Absolute Nucleated RBC 0.00 (0.00-0.01) x10^3u/L Lymphocytes % 14.6 L (24.0-44.0) % Monocytes % 8.9 (0.0-12.0) % Eosinophils % 6.6 H (0.00-5.0) % Basophils % 0.7 (0.0-0.4) % Absolute Granulocytes 5.65 (1.4-6.9) x10^3/uL Basophils # 0.06 (0-0.4) x10^3/uL Sodium 143 (137-145) mmol/L Potassium 3.9 (3.5-5.1) mmol/L Chloride 106 (98-107) mmol/L Carbon Dioxide 33 H (22-30) mmol/L Anion Gap 8.4 (5-15) MEQ/L BUN 28 H (7-17) mg/dL Creatinine 1.41 H (0.52-1.04) mg/dL Estimated GFR 37.9 ML/MIN Glucose 98 (74-106) mg/dL POC Glucometer 101 (74 to 106) mg/dL Calcium 8.8 (8.4-10.2) mg/dL Radiology Exams: Radiology Procedures Category Date Time Status CHEST 2 VIEWS (PA AND LAT) Urgent Exams 05/14/22 Ordered PULMONARY PERF VENTILATION [NUCMED] Stat Exams 05/14/22 10:00 Ordered Multi-Disciplinary Progress Notes: Multi-Disciplinary Progress Notes 05/14/22 08:57 Case Management Note by Keiko De La Vega PATIENT RESIDES AT HOME WITH HER DAUGHTER, WHO IS HER PRIMARY B[employer], HAS HOME O2 AND HHC WITH [facility]. NO ANTICIPATED NEEDS AT THIS TIME. WILL FOLLOW FOR ANY NEW D/C NEEDS. Initialized on 05/14/22 08:57 - END OF NOTE 05/13/22 11:23 Case Management Note by Jenny Sotelo REVIEWED CHART- NO CHANGES IN DC PLAN AT THIS TIME. [facility] HAS ACCEPTED PATIENT. PATIENT TO RETURN HOME WITH DAUGHTER AT TIME OF DC Initialized on 05/13/22 11:23 - END OF NOTE 05/13/22 10:03 Case Management Note by Jenny Sotelo Addendum entered by Jenny Sotelo 05/13/22 10:03: THEY WILL NEED NOTIFIED AT TIME OF DC AT [phone]. THEY WILL NEED FAXED THE DC INSTRUCTIONS, DC MED LIST AND DC SUMMARY ( IF AVAILABLE) TO [phone] Original Note: REFERRAL FAXED TO [facility] PER FAMILY REQUEST Initialized on 05/13/22 10:03 - END OF NOTE Assessment/Plan (1) Pneumonia Current Visit: No Status: Acute Assessment & Plan: improving clinically, on levaquin. sputum culture reviewed and citrobacter sens to levaquin Code(s): J18.9 - PNEUMONIA, UNSPECIFIED ORGANISM (2) Acute on chronic kidney failure Current Visit: Yes Status: Acute Assessment & Plan: much improved renal function since admission, likely home when able to ambulate to restroom, family concerned about her functional status to return to home. Code(s): N17.9 - ACUTE KIDNEY FAILURE, UNSPECIFIED; N18.9 - CHRONIC KIDNEY DISEASE, UNSPECIFIED (3) Atrial fibrillation Current Visit: No Status: Chronic Qualifiers: Atrial fibrillation type: paroxysmal Qualified Code(s): I48.0 - Paroxysmal atrial fibrillation Code(s): I48.91 - UNSPECIFIED ATRIAL FIBRILLATION (4) Alzheimer's dementia with behavioral disturbance Current Visit: No Status: Chronic Code(s): G30.9 - ALZHEIMER'S DISEASE, UNSPECIFIED; F02.81 - DEMENTIA IN OTH DISEASES CLASSD ELSWHR W BEHAVIORAL DISTURB (5) COPD (chronic obstructive pulmonary disease) Current Visit: No Status: Chronic Qualifiers: (6) Chronic hypoxemic respiratory failure Current Visit: No Status: Chronic
[2022-05-14] MEDS: Cozaar 50 MG PO SCH (10:39)
[2022-05-14] MEDS: Lantus Insulin SQ SCH ×3 (10:39→21:13)
[2022-05-14] MEDS: Klor Con PO SCH ×3 (10:40→20:59)
[2022-05-14] MEDS: FOLATE 1 MG PO SCH (10:40)
[2022-05-14] MEDS: Lexapro PO SCH (10:40)
[2022-05-14] MEDS: ECOTRIN 81 MG PO SCH (10:41)
[2022-05-14] MEDS: Protonix 40MG Tablet PO SCH (10:41)
[2022-05-14] MEDS: ELIQUIS 2.5 MG TABLET PO SCH ×2 (10:41→20:59)
[2022-05-14] MEDS: NORVASC 5 MG PO SCH (10:41)
--- NOTE | 2022-05-14 15:20 | XRAY ---
Indication: Follow-up cough, congestion, short of breath, and weakness. Comparison: May 11, 2022 AP/lateral chest demonstrates mild clearing of right base consolidating infiltrate/atelectasis/effusion. Also minimal clearing left base infiltrate/atelectasis. Heart borderline enlarged again with tortuous arteriosclerotic descending aorta and left pacemaker. No new cardiopulmonary abnormalities.
--- NOTE | 2022-05-14 16:35 | XRAY ---
Indication: Short of breath. Elevated d-dimer. Comparison: None Patient received 5.7 mCi technetium 99 MAA for the perfusion portion of the exam. Patient inhaled 38.9 mCi aerosolized technetium 99 DTPA for the ventilation. Multiple planar images obtained. Perfusion images demonstrates homogeneous radiopharmaceutical activity bilaterally with nonsegmental blunting right lung base. Ventilation images demonstrates homogeneous radiopharmaceutical activity bilateral with nonsegmental blunting right lung base. Small amount of central radiopharmaceutical activity favors chronic obstructive disease. Also incidental ingested GI radiopharmaceutical activity. Impression: Matched blunting right lung base corresponding to infiltrate/atelectasis/effusion on same day chest radiograph. No ventilation perfusion mismatch. PIOPED criteria for pulmonary embolus is low probability.
[2022-05-14] MEDS: zyPREXA 5MG TABLET PO SCH (17:04)
[2022-05-14] MEDS: ZOCOR 20MG PO SCH (20:58)
[2022-05-15] MEDS: Advair Hfa 115/21 Common canister IH SCH ×2 (00:15→05:52)
[2022-05-15] MEDS: Lactated Ringers 1,000 ML IV SCH (00:59)
[2022-05-15 04:46] LABS: Absolute Neutrophil Ct (ANC) 4.22 x10^3/uL (1.4-6.9); Basophil (Absolute #) 0.08 x10^3/uL (0-0.4); Eosinophil % 8.1 % (0.00-5.0); Eosinophil (Absolute #) 0.55 x10^3/uL (0-0.5); Hematocrit 33.5 % (35-47); Hemoglobin 10.2 g/dL (12.0-16.0); Lymphocyte (Absolute #) 1.33 x10^3/uL (1.0-4.6); Lymphocytes % 19.6 % (24.0-44.0); Mean Cell Volume 90.8 fL (78-100); Mean Corpuscular Hemoglobin 27.6 pg (26-32); Mean Corpuscular Hgb Concent. 30.4 g/dL (32-36); Monocyte (Absolute #) 0.59 x10^3/uL (0.0-1.3); Monocytes % 8.7 % (0.0-12.0); Platelet Count 217 x10^3/uL (150-450); Red Blood Count 3.69 x10^6/uL (4.1-5.4); Red Cell Distribution Width 15.8 % (11.5-14.0); White Blood Count 6.8 x10^3/uL (4.0-10.5)
[2022-05-15 05:24] LABS: ANION GAP 6.4 MEQ/L (5-15); Calcium 8.5 mg/dL (8.4-10.2); Creatinine 1 1.46 mg/dL (0.52-1.04); EST GLOMERULAR FILTRATION RATE 36.4 ML/MIN
[2022-05-15] MEDS: DUONEB 0.5-3 MG/3 ml Neb IH SCH (05:52)
[2022-05-15 07:28] VITALS: BP 126/70; PULSE 66; O2SAT 95
--- NOTE | 2022-05-15 08:30 | PCM.DS ---
Discharge Summary Date of Admission: 05/12/22 10:20 Admitting Physician: CHERI BAIRES DO Primary Care Provider: JANNETTE YADAV LORI Allergies Allergies carvedilol Allergy (Verified 05/11/22 21:53) Hospital Summary - Hospital Course Hospital Course: patient admitted with pneumonia, hx of advanced copd and dementia. doing well, currently on 2L nasal cannula home flow, able to ambuate with PT and back to baseline. renal function also improved and back to baseline. - Vitals & Intake/Output Vital Signs: Vital Signs Temperature 98.0 F 05/15/22 07:28 Pulse Rate 66 05/15/22 07:28 Respiratory Rate 16 05/15/22 07:28 Blood Pressure 126/70 05/15/22 07:28 O2 Sat by Pulse Oximetry 95 05/15/22 07:28 Intake & Output: Intake & Output 05/12/22 05/13/22 05/14/22 05/15/22 11:59 11:59 11:59 11:59 Intake Total 240 2548 1827 2408 Output Total 1 Balance 240 2548 1827 2407 Weight 87.6 kg 89.7 kg 89.2 kg - Lab Result Diagrams: 05/15/22 04:30 05/15/22 04:30 Lab Results-Last 24 Hrs: Lab Results-Last 24 Hours 05/14/22 05/14/22 05/14/22 Range/Units 10:48 12:07 16:36 WBC (4.0-10.5) x10^3/uL RBC (4.1-5.4) x10^6/uL Hgb (12.0-16.0) g/dL Hct (35-47) % MCV (78-100) fL MCH (26-32) pg MCHC (32-36) g/dL RDW (11.5-14.0) % Plt Count (150-450) x10^3/uL MPV (7.5-11.0) fL Gran % (36.0-66.0) % Immature Gran % (Auto) (0.00-0.4) % Nucleat RBC Rel Count (0.00-0.1) % Eos # (Auto) (0-0.5) x10^3/uL Immature Gran # (Auto) (0.00-0.03) x10^3u/L Absolute Lymphs (auto) (1.0-4.6) x10^3/uL Absolute Monos (auto) (0.0-1.3) x10^3/uL Absolute Nucleated RBC (0.00-0.01) x10^3u/L Lymphocytes % (24.0-44.0) % Monocytes % (0.0-12.0) % Eosinophils % (0.00-5.0) % Basophils % (0.0-0.4) % Absolute Granulocytes (1.4-6.9) x10^3/uL Basophils # (0-0.4) x10^3/uL Sodium (137-145) mmol/L Potassium (3.5-5.1) mmol/L Chloride (98-107) mmol/L Carbon Dioxide (22-30) mmol/L Anion Gap (5-15) MEQ/L BUN (7-17) mg/dL Creatinine (0.52-1.04) mg/dL Estimated GFR ML/MIN Glucose (74-106) mg/dL POC Glucometer 65 L 90 160 H (74 to 106) mg/dL Calcium (8.4-10.2) mg/dL 05/14/22 05/15/22 05/15/22 Range/Units 20:19 04:30 04:30 WBC 6.8 (4.0-10.5) x10^3/uL RBC 3.69 L (4.1-5.4) x10^6/uL Hgb 10.2 L (12.0-16.0) g/dL Hct 33.5 L (35-47) % MCV 90.8 (78-100) fL MCH 27.6 (26-32) pg MCHC 30.4 L (32-36) g/dL RDW 15.8 H (11.5-14.0) % Plt Count 217 (150-450) x10^3/uL MPV 10.0 (7.5-11.0) fL Gran % 62.0 (36.0-66.0) % Immature Gran % (Auto) 0.4 (0.00-0.4) % Nucleat RBC Rel Count 0.0 (0.00-0.1) % Eos # (Auto) 0.55 H (0-0.5) x10^3/uL Immature Gran # (Auto) 0.03 (0.00-0.03) x10^3u/L Absolute Lymphs (auto) 1.33 (1.0-4.6) x10^3/uL Absolute Monos (auto) 0.59 (0.0-1.3) x10^3/uL Absolute Nucleated RBC 0.00 (0.00-0.01) x10^3u/L Lymphocytes % 19.6 L (24.0-44.0) % Monocytes % 8.7 (0.0-12.0) % Eosinophils % 8.1 H (0.00-5.0) % Basophils % 1.2 (0.0-0.4) % Absolute Granulocytes 4.22 (1.4-6.9) x10^3/uL Basophils # 0.08 (0-0.4) x10^3/uL Sodium 143 (137-145) mmol/L Potassium 4.0 (3.5-5.1) mmol/L Chloride 108 H (98-107) mmol/L Carbon Dioxide 33 H (22-30) mmol/L Anion Gap 6.4 (5-15) MEQ/L BUN 24 H (7-17) mg/dL Creatinine 1.46 H (0.52-1.04) mg/dL Estimated GFR 36.4 ML/MIN Glucose 97 (74-106) mg/dL POC Glucometer 121 H (74 to 106) mg/dL Calcium 8.5 (8.4-10.2) mg/dL 05/15/22 Range/Units 06:35 WBC (4.0-10.5) x10^3/uL RBC (4.1-5.4) x10^6/uL Hgb (12.0-16.0) g/dL Hct (35-47) % MCV (78-100) fL MCH (26-32) pg MCHC (32-36) g/dL RDW (11.5-14.0) % Plt Count (150-450) x10^3/uL MPV (7.5-11.0) fL Gran % (36.0-66.0) % Immature Gran % (Auto) (0.00-0.4) % Nucleat RBC Rel Count (0.00-0.1) % Eos # (Auto) (0-0.5) x10^3/uL Immature Gran # (Auto) (0.00-0.03) x10^3u/L Absolute Lymphs (auto) (1.0-4.6) x10^3/uL Absolute Monos (auto) (0.0-1.3) x10^3/uL Absolute Nucleated RBC (0.00-0.01) x10^3u/L Lymphocytes % (24.0-44.0) % Monocytes % (0.0-12.0) % Eosinophils % (0.00-5.0) % Basophils % (0.0-0.4) % Absolute Granulocytes (1.4-6.9) x10^3/uL Basophils # (0-0.4) x10^3/uL Sodium (137-145) mmol/L Potassium (3.5-5.1) mmol/L Chloride (98-107) mmol/L Carbon Dioxide (22-30) mmol/L Anion Gap (5-15) MEQ/L BUN (7-17) mg/dL Creatinine (0.52-1.04) mg/dL Estimated GFR ML/MIN Glucose (74-106) mg/dL POC Glucometer 96 (74 to 106) mg/dL Calcium (8.4-10.2) mg/dL Micro Results-Entire Visit: Microbiology 05/11/22 23:31 Gram Stain - Final Sputum - Expectorant Sputum Culture - Final Citrobacter Koseri Accuchecks Date 05/15/22 Date 05/14/22 Date 05/14/22 Date 05/14/22 Time 07:21 Time 21:00 Time 07:35 - Radiology Exams Ordered Rad Exams-Entire Visit: Radiology Procedures Category Date Time Status CHEST 2 VIEWS (PA AND LAT) Routine Exams 05/14/22 15:04 Completed PULMONARY PERF VENTILATION [NUCMED] Stat Exams 05/14/22 10:00 Completed - Procedures and Test Procedures and Tests throughout Hospitalization: Therapy Orders & Screens 05/11/22 22:21 Respiratory Therapy Assessment DAILY Comment: 05/12/22 02:13 Oxygen Nasal Cannula 2 lpm Comment: Respiratory Therapy Consult ROUTINE Comment: Reason For Exam: 05/12/22 03:07 PT Screen per Nursing Assess ONCE Comment: Protocol Order Physician Instructions: Greater than 3 points order PT Admission Screenin Reason For Exam: Triggered on Admission Diagnosis: pulmonary infliltrates, elevated d-drimer, productive cough Open Wound/Cellutlitis/Pressure Ulcers: No Acute Fx/ORIF/Change in wt bearing status: No Severe MUSCULOSKELETAL pain: No ADL Dysfunction: Yes Acute CVA w/Hemiparesis/Hemiplegia: No Decreased Functional Mobility/Strength: Yes Sprain/Strain: No Acute Post-op Mobility Dysfunction: No Total Points: 4 05/12/22 10:22 Respiratory MDI BID Comment: Diagnosis: pulmonary infliltrates, elevated d-drimer, productive cough 05/12/22 10:24 BiPap/CPAP ROUTINE Comment: Per home use Diagnosis: pulmonary infliltrates, elevated d-drimer, productive cough 05/14/22 12:58 PT Eval & Treat (MD Order) ONCE Reason for Eval:: weakness Diagnosis: PNEUMONIA, ELEVATED DDIMER Discharge Exam General Appearance: no apparent distress Neurologic Exam: alert, cooperative Respiratory Exam: diminished breath sounds, rhonchi, No respiratory distress Cardiovascular Exam: regular rate/rhythm, normal heart sounds Gastrointestinal/Abdomen Exam: soft, No tenderness, No mass Wound Assessment: Skin/Wound Assessment Wound/Incision Assessment Start: 05/12/22 03:07 Text: Status: Active Freq: Q6H Protocol: Document 05/15/22 03:00 RB (Rec: 05/15/22 05:36 RB [id number]) Wound/Incision Assessment Right Chest Wound Assessment Shift Assessment Wound Type excoriated Drainage Amount None Wound Bed Greatest Portion Red (Granulation) Comment under bilateral breast is excoriated cleansed well and apply light dusting of baby powder. Left Chest Wound Assessment Shift Assessment Wound Type excoriated General Appearance Reddened Comment excoriation under bilat breast Wound Photo Photo Taken No Final Diagnosis/Problem List - Final Discharge Diagnosis/Problem (1) Pneumonia Current Visit: No Status: Acute Assessment & Plan: home on po levaquin, clinically improving Code(s): J18.9 - PNEUMONIA, UNSPECIFIED ORGANISM (2) Acute on chronic kidney failure Current Visit: Yes Status: Acute Assessment & Plan: improved Code(s): N17.9 - ACUTE KIDNEY FAILURE, UNSPECIFIED; N18.9 - CHRONIC KIDNEY DISEASE, UNSPECIFIED (3) Atrial fibrillation Current Visit: No Status: Chronic Code(s): I48.91 - UNSPECIFIED ATRIAL FIBRILLATION (4) Alzheimer's dementia with behavioral disturbance Current Visit: No Status: Chronic Code(s): G30.9 - ALZHEIMER'S DISEASE, UNSP ECIFIED; F02.81 - DEMENTIA IN OTH DISEASES CLASSD ELSWHR W BEHAVIORAL DISTURB (5) COPD (chronic obstructive pulmonary disease) Current Visit: No Status: Chronic (6) Chronic hypoxemic respiratory failure Current Visit: No Status: Chronic - Discharge Disposition: Home, Self-Care Condition: Fair Prescriptions: New Levofloxacin [Levofloxacin 500 MG Tablet] 500 mg PO UD #3 tablet Continue Apixaban [Eliquis 5 mg Tablet] 2.5 mg PO BID Bumetanide 1 mg [Bumex 1 mg] 1 mg PO DAILY Memantine HCl 5 mg PO QHS PANTOPRAZOLE 40 mg Tablet [Protonix 40MG Tablet] 40 mg PO DAILY Losartan Potassium [Cozaar] 100 mg PO DAILY Folic Acid 1 mg [Folate 1 mg] 1 mg PO DAILY Donepezil HCl [Aricept] 5 mg PO DAILY Amlodipine Besylate 5 mg [Norvasc 5 mg] 5 mg PO DAILY Atorvastatin Calcium 40 mg PO HS Nitroglycerin 0.4 mg Tablet [Nitrostat 0.4 MG Tablet] 1 tablet SL Q5MIN PRN MR X 3 PRN PRN Reason: Chest Pain OLANZapine [Olanzapine] 10 mg PO EVENING MEAL Insulin Glargine,Hum.rec.anlog [Lantus] 30 unit SQ BID Escitalopram Oxalate [Lexapro] 10 mg PO DAILY Aspirin 81 gm Chew [Baby Aspirin 81 mg Chew] 81 mg PO DAILY Insulin Lispro [Humalog] 10 unit SQ TIDWM Potassium Chloride 7.5 ml PO BID Fluticasone/Umeclidin/Vilanter [Trelegy Ellipta 100-62.5-25] 1 puff IH DAILY Ipratropium/Albuterol Sulfate [Iprat-Albut 0.5-3(2.5) mg/3 ml] 1 neb IH TID Ergocalciferol (Vitamin D2) [Vitamin D2] 50,000 units PO WEEKLY Acetaminophen with Codeine [Acetaminophen-Cod #3 Tablet] 1 each PO Q6HPRN PRN PRN Reason: Pain Instructions: Pneumonia, Adult (DC) Additional Instructions: [facility] HAS BEEN SET UP. THEY WILL CONTACT YOU TO ARRANGE A VISIT. THEIR PHONE NUMBER IS [phone] Follow up with: JANNETTE YADAV MD [Primary Care Provider] - 05/21/22 11:15 am
[2022-05-15] MEDS: HUMALOG SQ SCH (08:38)
[2022-05-15] MEDS: Klor Con PO SCH (08:41)
[2022-05-15] MEDS: ECOTRIN 81 MG PO SCH (08:41)
[2022-05-15] MEDS: Lexapro PO SCH (08:41)
[2022-05-15] MEDS: ELIQUIS 2.5 MG TABLET PO SCH (08:42)
[2022-05-15] MEDS: NORVASC 5 MG PO SCH (08:42)
[2022-05-15] MEDS: Cozaar 50 MG PO SCH (08:42)
[2022-05-15] MEDS: Protonix 40MG Tablet PO SCH (08:42)
[2022-05-15] MEDS: FOLATE 1 MG PO SCH (08:42)
[2022-05-15] MEDS: Lantus Insulin SQ SCH (09:49)
== END 2022-05-15 09:40 | disposition home health service (06) | DRG 194 ==
LOC: ED 21:39 → MED SURG 05-12 02:04 → OBSVTOIN 05-12 10:20
PROVIDERS: ADMIT Family Medicine; ATTEND Family Medicine
DX: J18.9 Pneumonia, unspecified organism (principal); J96.11 Chronic respiratory failure with hypoxia; N17.9 Acute kidney failure, unspecified; E11.22 Type 2 diabetes mellitus with diabetic chronic kidney disease; I12.9 Hypertensive chronic kidney disease with stage 1 through stage 4 chronic kidney disease, or unspecified chronic kidney disease; N18.9 Chronic kidney disease, unspecified; I48.91 Unspecified atrial fibrillation; G30.9 Alzheimer's disease, unspecified; F02.80 Dementia in other diseases classified elsewhere, unspecified severity, without behavioral disturbance, psychotic disturbance, mood disturbance, and anxiety; J44.9 Chronic obstructive pulmonary disease, unspecified; R79.89 Other specified abnormal findings of blood chemistry; R53.1 Weakness; Z79.01 Long term (current) use of anticoagulants; Z79.899 Other long term (current) drug therapy; Z99.81 Dependence on supplemental oxygen; Z20.828 Contact with and (suspected) exposure to other viral communicable diseases
CPT/HCPCS: 0241U; 36000; 36415; 71045; 71046; 78582; 80048; 80053; 82947; 83036; 83880; 84484; 85025; 85379; 87070; 87077; 87186; 93005; 93041; 94002; 94003; 94640; 94760; 96374; 97161; 99285; A9540; A9567; J1817; J1956; J7609; A9270-GY

== ENCOUNTER 2022-11-25 17:42 | Inpatient (IN) | payer MEDICARE, OTHER ==
--- NOTE | 2022-11-25 18:27 | ERPHSYRPT ---
<LUIZ BURCIAGA - Last Filed: 11/25/22 21:23> - History of Present Illness Source: patient, other (Daughter) Exam Limitations: other (Poor historian) Patient Subjective Stated Complaint: pt has had a cough since approx 10/10/2022 and has had eye drainage since then too Triage Nursing Assessment: Pt was brought to the ER by her daughter, hypotensive, denies pain, is on 2L NC all the time, coughing up brown mucus per daughter, lethargic, pulses normal, no edema to legs, hard of hearing with her hearing aids, has been coughing since October 10 and having eye drainage in reina eyes but worse in the left Timing/Duration: other (since October 10) Cough Quality/Degree: productive cough Possible Cause: occasional episodes Modifying Factors: Improves With: coughing Associated Symptoms: denies symptoms Hx Tetanus, Diphtheria Vaccination/Date Given: Yes Hx Influenza Vaccination/Date Given: Yes Hx Pneumococcal Vaccination/Date Given: Yes <JOHNNY WORKMAN - Last Filed: 12/02/22 07:36> - History of Present Illness Physician History: 82 yo WF w cough since October 10 and worsening lethargy. Daughter states that the cough is getting worse and that she is more lethargic. Pt is 2L O2 NC depen dent. She also has L eye drainage. N/V/D/melena/hematochezia/dysuria/hematuria/fever are all denied. Pt has a PMH of DM/CVA wo deficit/COPD/1ppd smoker until 2016. (JOHNNY WORKMAN) Allergies/Adverse Reactions: carvedilol Allergy (Verified 05/11/22 21:53) Home Medications: Amlodipine Besylate 5 mg [Norvasc 5 mg] 5 mg PO DAILY 02/08/18 [History] Apixaban [Eliquis 5 mg Tablet] 2.5 mg PO BID 02/08/18 [History] Atorvastatin Calcium 40 mg PO HS 02/08/18 [History] Bumetanide 1 mg [Bumex 1 mg] 1 mg PO DAILY 02/08/18 [History] Donepezil HCl [Aricept] 5 mg PO DAILY 02/08/18 [History] Folic Acid 1 mg [Folate 1 mg] 1 mg PO DAILY 02/08/18 [History] Losartan Potassium [Cozaar] 100 mg PO DAILY 02/08/18 [History] Memantine HCl 5 mg PO QHS 02/08/18 [History] Nitroglycerin 0.4 mg Tablet [Nitrostat 0.4 MG Tablet] 1 tablet SL Q5MIN PRN MR X 3 PRN 02/08/18 [History] PANTOPRAZOLE 40 mg Tablet [Protonix 40MG Tablet] 40 mg PO DAILY 02/08/18 [History] OLANZapine [Olanzapine] 10 mg PO HS 02/27/19 [History] Insulin Glargine,Hum.rec.anlog [Lantus] 30 unit SQ DAILY 04/19/19 [History] Aspirin 81 gm Chew [Baby Aspirin 81 mg Chew] 81 mg PO DAILY 08/30/19 [History] Escitalopram Oxalate [Lexapro] 10 mg PO DAILY 08/30/19 [History] Insulin Lispro [Humalog] 10 unit SQ TIDWM 08/31/19 [History] Potassium Chloride 7.5 ml PO BID 07/01/21 [History] Fluticasone/Umeclidin/Vilanter [Trelegy Ellipta 100-62.5-25] 1 puff IH DAILY 07/09/21 [History] Acetaminophen with Codeine [Acetaminophen-Cod #3 Tablet] 1 each PO Q6HPRN PRN 05/12/22 [History] Ergocalciferol (Vitamin D2) [Vitamin D2] 50,000 units PO WEEKLY 05/12/22 [History] Ipratropium/Albuterol Sulfate [Iprat-Albut 0.5-3(2.5) mg/3 ml] 1 neb IH BID 08/02 [History] Guaifenesin 600 mg ER [Mucinex 600MG ER Tabs] 600 mg PO BID 11/26/22 [History] Travel Risk - International Travel Have you traveled outside of the country in past 3 weeks: No - Coronavirus Screening Are you exhibiting any of the following symptoms?: No Close contact with a COVID-19 positive Pt in past 14-21 Days: No - Vaccine Status Have you recieved a Covid-19 vaccination: Yes (unknown) 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 - Vaccination Dates Dates if Unknown: unknown <JOHNNY WORKMAN - Last Filed: 12/02/22 07:36> - Review of Systems Constitutional: No Symptoms, Fatigue, Lethargy, Malaise Eyes: No Symptoms Ears, Nose, & Throat: No Symptoms Respiratory: Cough, Dyspnea Cardiac: No Symptoms Abdominal/Gastrointestinal: No Symptoms Genitourinary Symptoms: No Symptoms Musculoskeletal: No Symptoms Skin: No Symptoms Neurological: No Symptoms Psychological: No Symptoms Endocrine: No Symptoms Hematologic/Lymphatic: No Symptoms Immunological/Allergic: No Symptoms <JOHNNY WORKMAN - Last Filed: 12/02/22 07:36> - Past Medical History Pertinent Past Medical History: Yes Neurological History: Alzheimer's Disease, Dementia, Peripheral Neuropathy, Stroke ENT History: Cataracts Cardiac History: Hypertension Respiratory History: CHF, COPD, Sleep Apnea, Other Endocrine Medical History: Diabetes Type II Musculoskeletal History: Arthritis GI Medical History: Diverticulitis, Irritable Bowel History: No Pertinent History, Renal Disease Psycho-Social History: No Pertinent History Female Reproductive Disorders: No Pertinent History, Other Other Medical History: pt family states pt noncompliant with cpap, ovarian cysts - Past Surgical History Past Surgical History: Yes Neuro Surgical History: No Pertinent History Cardiac: No Pertinent History, Internal Defibrillator, Pacemaker Respiratory: No Pertinent History Gastrointestinal: No Pertinent History Genitourinary: Other Musculoskeletal: No Pertinent History Female Surgical History: Tubal Ligation Other Surgical History: ear surgery, cataract surgery, bladder tuck,lasik surgery. Kidney removed - Social History Smoking Status: Former smoker How long have you smoked: 50 Exposure to second hand smoke: No Drug Use: none Patient Lives Alone: No Significant Family History: no pertinent family hx <JOHNNY WORKMAN - Last Filed: 12/02/22 07:36> - Physical Exam General Appearance: no apparent distress Eye Exam: PERRL/EOMI, eyes nml inspection Ears, Nose, Throat Exam: normal ENT inspection, TMs normal, pharynx normal, dry mucous membranes Neck Exam: normal inspection, non-tender, supple, full range of motion, No meningismus, No mass, No Brudzinski, No Kernig's, No carotid bruit Respiratory Exam: airway intact, diminished breath sounds (Decreased BS R base), No respiratory distress Cardiovascular Exam: regular rate/rhythm, murmur (2/6 SANGITA) Gastrointestinal/Abdomen Exam: soft, normal bowel sounds, No tenderness Extremity Exam: normal inspection, normal range of motion Neurologic Exam: alert, cooperative, mold insert changer II-XII nml as tested, sensation nml, other (Pt disoriented to time) Skin Exam: normal color, warm, dry Lymphatic Exam: No adenopathy SpO2 Interpretation: normal SpO2: 98 O2 Delivery: Nasal Cannula (2L) <JOHNNY WORKMAN - Last Filed: 12/02/22 07:36> - Nursing Vital Signs Nursing Vital Signs: Initial Vital Signs Temperature 96.7 F 11/25/22 17:50 Pulse Rate 65 11/25/22 17:50 Blood Pressure 91/59 11/25/22 17:50 O2 Sat by Pulse Oximetry 98 11/25/22 17:50 Pain Scale Pain Intensity 0 Borderline hypotensive (JOHNNY WORKMAN) - Course Nursing assessment & vital signs reviewed: Yes EKG Interpreted by Me: RATE (Paced/Rate 60/prolonged QT-QTc/Flat Twaves/No acute ST segment changes) <JOHNNY WORKMAN - Last Filed: 12/02/22 07:36> Ordered Tests: Medication Summary Discontinued Medications Generic Name Dose Route Start Last Admin Trade Name Freq PRN Reason Stop Dose Admin Acetaminophen 650 mg 11/25/22 22:07 Acetaminophen 325 Mg Tablet PO 12/25/22 22:06 Q4H PRN PRN PAIN AND/OR FEVER Acetaminophen/Codeine Phosphate 1 tab 11/25/22 23:38 11/30/22 21:43 Codeine Phosphate/Apap #3 PO 12/25/22 23:37 1 tab Q6H PRN PRN Administration PAIN Albuterol Sulfate 2.5 mg 11/30/22 14:29 11/30/22 14:49 Albuterol Sulfate 2.5 Mg/3 Ml Neb IH 12/30/22 14:28 2.5 mg Q4H PRN PRN Administration SHORTNESS OF BREATH/WHEEZING Albuterol/Ipratropium 3 ml 11/25/22 20:55 11/25/22 21:40 Ipratropium/Albuterol Sulfate 3 Ml Ampul.Neb IH 11/25/22 20:56 3 ml STAT ONE Administration Albuterol/Ipratropium Confirm 11/25/22 21:06 Ipratropium/Albuterol Sulfate 3 Ml Ampul.Neb Administered 11/25/22 21:07 Dose 3 ml IH .STK-MED ONE Albuterol/Ipratropium 3 ml 11/26/22 01:00 11/26/22 07:01 Ipratropium/Albuterol Sulfate 3 Ml Ampul.Neb IH 12/26/22 00:59 3 ml Q6HRT ROSARIO Administration Albuterol/Ipratropium Confirm 11/26/22 06:50 Ipratropium/Albuterol Sulfate 3 Ml Ampul.Neb Administered 11/26/22 06:51 Dose 3 ml IH .STK-MED ONE Albuterol/Ipratropium 3 ml 11/26/22 19:00 12/01/22 05:49 Ipratropium/Albuterol Sulfate 3 Ml Ampul.Neb IH 12/26/22 18:59 3 ml BIDRT ROSARIO Administration Amlodipine Besylate 5 mg 11/26/22 10:00 12/01/22 09:42 Amlodipine Besylate 5 Mg Tablet PO 12/26/22 09:59 5 mg DAILY ROSARIO Administration Apixaban 2.5 mg 11/25/22 23:40 12/01/22 09:41 Apixaban 2.5 Mg Tablet PO 12/25/22 23:39 2.5 mg BID ROSARIO Administration Atorvastatin Calcium 40 mg 11/25/22 23:43 11/26/22 00:10 Atorvastatin Calcium 40 Mg Tablet PO 12/25/22 23:42 40 mg HS ROSARIO Administration Methylprednisolone Sodium 0 mg 11/25/22 20:55 11/25/22 21:42 Succinate 125 mg/ Sterile IV 11/25/22 20:56 125 mg Water 2 ml STAT ONE Administration Methylprednisolone Sodium 0 mg 11/26/22 00:00 11/26/22 05:45 Succinate 60 mg/ Sterile Water IV 12/26/22 00:00 60 mg 2 ml Q6HT ROSARIO Administration Methylprednisolone Sodium 0 mg 11/26/22 12:00 11/27/22 05:44 Succinate 60 mg/ Sterile Water IV 12/26/22 11:59 60 mg 1.5 ml Q6HT ROSARIO Administration Escitalopram Oxalate 10 mg 11/26/22 10:00 12/01/22 09:42 Escitalopram Oxalate 10 Mg Tablet PO 12/26/22 09:59 10 mg DAILY ROSARIO Administration Famotidine 20 mg 11/25/22 22:07 12/01/22 09:41 Famotidine 20 Mg/1 Vial IV 12/25/22 22:06 20 mg Q12HT ROSARIO Administration Guaifenesin/Dextromethorphan 5 ml 11/26/22 19:43 11/27/22 22:00 Guaifenesin/D-Methorphan Hb 118 Ml Syrup PO 12/26/22 19:42 5 ml Q6H PRN PRN Administration COUGH Sodium Chloride 1,000 mls @ 50 mls/hr 11/25/22 21:00 11/29/22 13:02 Sodium Chloride 0.9% 1000 Ml IV 12/25/22 20:59 75 mls/hr .Q20H ROSARIO Administration Azithromycin 500 mg in 250 mls @ 250 mls/hr 11/25/22 20:55 11/25/22 22:58 Zithromax 500 Mg/ 250 Ml Nacl Premix IV 11/25/22 21:54 250 mls/hr STAT STA Administration Ceftriaxone Sodium/Dextrose 1 g in 50 mls @ 100 mls/hr 11/25/22 20:55 11/25/22 21:55 Rocephin 1 Gm-D5w 50 Ml Bag IV 11/25/22 21:24 100 ml/hr STAT STA 100 mls/hr Administration Ceftriaxone Sodium/Dextrose Confirm 11/25/22 21:38 Rocephin 1 Gm-D5w 50 Ml Bag Administered 11/25/22 21:39 Dose 1 g in 50 mls @ ud IV .STK-MED ONE Azithromycin 500 mg in 250 mls @ 250 mls/hr 11/26/22 22:00 11/30/22 21:44 Zithromax 500 Mg/ 250 Ml Nacl Premix IV 12/26/22 21:59 250 mls/hr Q24H22 ROSARIO Administration Ceftriaxone Sodium/Dextrose 1 g in 50 mls @ 100 mls/hr 11/26/22 22:00 0 11/30/22 22:56 Rocephin 1 Gm-D5w 50 Ml Bag IV 12/02/22 21:59 100 mls/hr Q24H22 ROSARIO Administration Insulin Human Lispro 0 unit 11/25/22 22:07 11/29/22 21:43 Insulin Lispro 1 Unit SQ 12/25/22 22:06 2 unit UD PRN Administration HYPERGLYCEMIA Losartan Potassium 100 mg 11/26/22 10:00 12/01/22 09:41 Losartan Potassium 50 Mg Tablet PO 12/26/22 09:59 100 mg DAILY ROSARIO Administration Memantine 5 mg 11/25/22 23:34 11/30/22 21:43 Memantine Hcl 5 Mg Tablet PO 12/25/22 23:33 5 mg HS ROSARIO Administration Methylprednisolone Sodium Succinate Confirm 11/25/22 21:38 Methylprednis Sod Succ 125 Mg/2 Ml Vial Administered 11/25/22 21:39 Dose 125 mg .ROUTE .STK-MED ONE Methylprednisolone Sodium Succinate Confirm 11/25/22 23:55 Methylprednis Sod Succ 125 Mg/2 Ml Vial Administered 11/25/22 23:56 Dose 125 mg .ROUTE .STK-MED ONE Methylprednisolone Sodium Succinate Confirm 11/26/22 05:16 Methylprednis Sod Succ 125 Mg/2 Ml Vial Administered 11/26/22 05:17 Dose 125 mg .ROUTE .STK-MED ONE Methylprednisolone Sodium Succinate Confirm 11/27/22 05:29 Methylprednisolone Sod Suc 40m 40 Mg/Ml Vial Administered 11/27/22 05:30 Dose 40 mg .ROUTE .STK-MED ONE Non-Formulary Medication 100 mg 11/26/22 10:00 11/26/22 12:00 Losartan Potassium [Cozaar] PO 12/26/22 09:59 Not Given DAILY ROSARIO Olanzapine 10 mg 11/25/22 23:36 11/30/22 21:44 Olanzapine 5 Mg Tab PO 12/25/22 23:35 10 mg HS ROSARIO Administration Ondansetron HCl 4 mg 11/25/22 22:07 11/27/22 09:34 Ondansetron Hcl 4 Mg/2 Ml Vial IV 12/25/22 22:06 4 mg Q6H PRN PRN Administration NAUSEA/VOMITING Pantoprazole Sodium 40 mg 11/26/22 10:00 12/01/22 09:42 Protonix (Pantoprazole) 40 Mg Tablet PO 12/26/22 09:59 40 mg DAILY ROSARIO Administration Potassium Chloride 20 meq 11/25/22 23:37 11/26/22 00:10 Potassium Chloride Tab 10 Meq Tab PO 12/25/22 23:36 20 meq BID ROSARIO Administration Potassium Chloride 10 meq 11/26/22 10:00 12/01/22 09:42 Potassium Chloride Tab 10 Meq Tab PO 12/26/22 09:59 10 meq BID ROSARIO Administration Fluticasone/Salmeterol 2 puff 11/26/22 07:00 12/01/22 10:00 Fluticasone/Salmeterol 115/21 - 120 Puff Common Canister IH 12/26/22 06:59 2 puff BIDRT ROSARIO Administration Simvastatin 40 mg 11/26/22 22:00 11/30/22 21:43 Simvastatin 20 Mg Tablet PO 12/26/22 21:59 40 mg HS ROSARIO Administration Sterile Water Confirm 11/25/22 21:38 Water For Injection,Sterile 10 Ml Vial Administered 11/25/22 21:39 Dose 10 ml IJ .STK-MED ONE Sterile Water Confirm 11/26/22 05:16 Water For Injection,Sterile 10 Ml Vial Administered 11/26/22 05:17 Dose 10 ml IJ .STK-MED ONE Sterile Water Confirm 11/27/22 05:29 Water For Injection,Sterile 10 Ml Vial Administered 11/27/22 05:30 Dose 10 ml IJ .STK-MED ONE Sterile Water Confirm 11/27/22 05:29 Water For Injection,Sterile 10 Ml Vial Administered 11/27/22 05:30 Dose 10 ml IJ .STK-MED ONE Lab/Rad Data: Laboratory Result Diagrams 11/26/22 04:00 11/26/22 04:00 Laboratory Results 11/26/22 11/26/22 11/26/22 Range/Units 07:08 04:00 04:00 WBC 7.6 (4.0-10.5) x10^3/uL RBC 4.00 L (4.1-5.4) x10^6/uL Hgb 11.3 L (12.0-16.0) g/dL Hct 39.3 (35-47) % MCV 98.3 D (78-100) fL MCH 28.3 (26-32) pg MCHC 28.8 L (32-36) g/dL RDW 15.4 H (11.5-14.0) % Plt Count 207 (150-450) x10^3/uL MPV 9.9 (7.5-11.0) fL Gran % 90.6 H (36.0-66.0) % Immature Gran % (Auto) 0.5 H (0.00-0.4) % Nucleat RBC Rel Count 0.0 (0.00-0.1) % Eos # (Auto) 0.01 (0-0.5) x10^3/uL Immature Gran # (Auto) 0.04 H (0.00-0.03) x10^3u/L Absolute Lymphs (auto) 0.53 L (1.0-4.6) x10^3/uL Absolute Monos (auto) 0.08 (0.0-1.3) x10^3/uL Absolute Nucleated RBC 0.00 (0.00-0.01) x10^3u/L Lymphocytes % 7.0 L (24.0-44.0) % Monocytes % 1.1 (0.0-12.0) % Eosinophils % 0.1 (0.00-5.0) % Basophils % 0.7 (0.0-0.4) % Absolute Granulocytes 6.89 (1.4-6.9) x10^3/uL Basophils # 0.05 (0-0.4) x10^3/uL PT (9.4-12.5) SECONDS INR (0.8-3.0) APTT (25.1-36.5) SECONDS Sodium 141 (137-145) mmol/L Potassium 4.5 (3.5-5.1) mmol/L Chloride 107 (98-107) mmol/L Carbon Dioxide 21 L (22-30) mmol/L Anion Gap 17.4 H (5-15) MEQ/L BUN 49 H (7-17) mg/dL Creatinine 1.93 H (0.52-1.04) mg/dL Estimated GFR 26.4 ML/MIN Glucose 190 H (74-106) mg/dL POC Glucometer 226 H (74 to 106) mg/dL Lactic Acid (0.4-2.0) Calcium 8.8 (8.4-10.2) mg/dL Total Bilirubin 0.50 (0.2-1.3) mg/dL AST 32 (14-36) U/L ALT 33 (0-35) U/L Alkaline Phosphatase 126 (38-126) U/L Troponin I (0.000-0.034) ng/mL NT-Pro-B Natriuret Pep (<300) pg/mL Serum Total Protein 7.5 (6.3-8.2) g/dL Albumin 3.6 (3.5-5.0) g/dL Urine Color (Yellow) Urine Appearance (Clear) Urine pH (4.6-8.0) Ur Specific [place] (1.005-1.030) Urine Protein (Negative) Urine Glucose (UA) (Negative) mg/dL Urine Ketones (Negative) Urine Blood (Negative) Urine Nitrite (Negative) Urine Bilirubin (Negative) Urine Urobilinogen (0.2) mg/dL Ur Leukocyte Esterase (Negative) U Hyaline Cast (Auto) (0-2) /LPF Urine Microscopic RBC (0-5) /HPF Urine Microscopic WBC (0-5) /HPF Ur Epithelial Cells (None Seen) /HPF Urine Bacteria (None Seen) /HPF Urine Culture Reflexed (NO) Influenza Type A Ag (NEGATIVE) Influenza Type B Ag (NEGATIVE) RSV (PCR) (NEGATIVE) SARS-CoV-2 (PCR) (NEGATIVE) Slides for Path Review YES 11/26/22 11/26/22 11/25/22 Range/Units 04:00 00:56 22:40 WBC (4.0-10.5) x10^3/uL RBC (4.1-5.4) x10^6/uL Hgb (12.0-16.0) g/dL Hct (35-47) % MCV (78-100) fL MCH (26-32) pg MCHC (32-36) g/dL RDW (11.5-14.0) % Plt Count (150-450) x10^3/uL MPV (7.5-11.0) fL Gran % (36.0-66.0) % Immature Gran % (Auto) (0.00-0.4) % Nucleat RBC Rel Count (0.00-0.1) % Eos # (Auto) (0-0.5) x10^3/uL Immature Gran # (Auto) (0.00-0.03) x10^3u/L Absolute Lymphs (auto) (1.0-4.6) x10^3/uL Absolute Monos (auto) (0.0-1.3) x10^3/uL Absolute Nucleated RBC (0.00-0.01) x10^3u/L Lymphocytes % (24.0-44.0) % Monocytes % (0.0-12.0) % Eosinophils % (0.00-5.0) % Basophils % (0.0-0.4) % Absolute Granulocytes (1.4-6.9) x10^3/uL Basophils # (0-0.4) x10^3/uL PT (9.4-12.5) SECONDS INR (0.8-3.0) APTT (25.1-36.5) SECONDS Sodium (137-145) mmol/L Potassium (3.5-5.1) mmol/L Chloride (98-107) mmol/L Carbon Dioxide (22-30) mmol/L Anion Gap (5-15) MEQ/L BUN (7-17) mg/dL Creatinine (0.52-1.04) mg/dL Estimated GFR ML/MIN Glucose (74-106) mg/dL POC Glucometer (74 to 106) mg/dL Lactic Acid (0.4-2.0) Calcium (8.4-10.2) mg/dL Total Bilirubin (0.2-1.3) mg/dL AST (14-36) U/L ALT (0-35) U/L Alkaline Phosphatase (38-126) U/L Troponin I < 0.012 < 0.012 (0.000-0.034) ng/mL NT-Pro-B Natriuret Pep (<300) pg/mL Serum Total Protein (6.3-8.2) g/dL Albumin (3.5-5.0) g/dL Urine Color Yellow (Yellow) Urine Appearance Cloudy A (Clear) Urine pH 5.5 (4.6-8.0) Ur Specific [place] <=1.005 (1.005-1.030) Urine Protein Negative (Negative) Urine Glucose (UA) Negative (Negative) mg/dL Urine Ketones Negative (Negative) Urine Blood Trace (Negative) Urine Nitrite Negative (Negative) Urine Bilirubin Negative (Negative) Urine Urobilinogen 0.2 (0.2) mg/dL Ur Leukocyte Esterase Large A (Negative) U Hyaline Cast (Auto) NONE SEEN (0-2) /LPF Urine Microscopic RBC 0-2 (0-5) /HPF Urine Microscopic WBC >100 A (0-5) /HPF Ur Epithelial Cells None Seen (None Seen) /HPF Urine Bacteria None Seen (None Seen) /HPF Urine Culture Reflexed YES (NO) Influenza Type A Ag (NEGATIVE) Influenza Type B Ag (NEGATIVE) RSV (PCR) (NEGATIVE) SARS-CoV-2 (PCR) (NEGATIVE) Slides for Path Review 11/25/22 11/25/22 11/25/22 Range/Units 22:21 18:51 18:45 WBC (4.0-10.5) x10^3/uL RBC (4.1-5.4) x10^6/uL Hgb (12.0-16.0) g/dL Hct (35-47) % MCV (78-100) fL MCH (26-32) pg MCHC (32-36) g/dL RDW (11.5-14.0) % Plt Count (150-450) x10^3/uL MPV (7.5-11.0) fL Gran % (36.0-66.0) % Immature Gran % (Auto) (0.00-0.4) % Nucleat RBC Rel Count (0.00-0.1) % Eos # (Auto) (0-0.5) x10^3/uL Immature Gran # (Auto) (0.00-0.03) x10^3u/L Absolute Lymphs (auto) (1.0-4.6) x10^3/uL Absolute Monos (auto) (0.0-1.3) x10^3/uL Absolute Nucleated RBC (0.00-0.01) x10^3u/L Lymphocytes % (24.0-44.0) % Monocytes % (0.0-12.0) % Eosinophils % (0.00-5.0) % Basophils % (0.0-0.4) % Absolute Granulocytes (1.4-6.9) x10^3/uL Basophils # (0-0.4) x10^3/uL PT (9.4-12.5) SECONDS INR (0.8-3.0) APTT (25.1-36.5) SECONDS Sodium (137-145) mmol/L Potassium (3.5-5.1) mmol/L Chloride (98-107) mmol/L Carbon Dioxide (22-30) mmol/L Anion Gap (5-15) MEQ/L BUN (7-17) mg/dL Creatinine (0.52-1.04) mg/dL Estimated GFR ML/MIN Glucose (74-106) mg/dL POC Glucometer 137 H (74 to 106) mg/dL Lactic Acid 1.0 (0.4-2.0) Calcium (8.4-10.2) mg/dL Total Bilirubin (0.2-1.3) mg/dL AST (14-36) U/L ALT (0-35) U/L Alkaline Phosphatase (38-126) U/L Troponin I (0.000-0.034) ng/mL NT-Pro-B Natriuret Pep (<300) pg/mL Serum Total Protein (6.3-8.2) g/dL Albumin (3.5-5.0) g/dL Urine Color (Yellow) Urine Appearance (Clear) Urine pH (4.6-8.0) Ur Specific [place] (1.005-1.030) Urine Protein (Negative) Urine Glucose (UA) (Negative) mg/dL Urine Ketones (Negative) Urine Blood (Negative) Urine Nitrite (Negative) Urine Bilirubin (Negative) Urine Urobilinogen (0.2) mg/dL Ur Leukocyte Esterase (Negative) U Hyaline Cast (Auto) (0-2) /LPF Urine Microscopic RBC (0-5) /HPF Urine Microscopic WBC (0-5) /HPF Ur Epithelial Cells (None Seen) /HPF Urine Bacteria (None Seen) /HPF Urine Culture Reflexed (NO) Influenza Type A Ag NEGATIVE (NEGATIVE) Influenza Type B Ag NEGATIVE (NEGATIVE) RSV (PCR) NEGATIVE (NEGATIVE) SARS-CoV-2 (PCR) NEGATIVE (NEGATIVE) Slides for Path Review 11/25/22 11/25/22 11/25/22 Range/Units 18:45 18:45 18:45 WBC (4.0-10.5) x10^3/uL RBC (4.1-5.4) x10^6/uL Hgb (12.0-16.0) g/dL Hct (35-47) % MCV (78-100) fL MCH (26-32) pg MCHC (32-36) g/dL RDW (11.5-14.0) % Plt Count (150-450) x10^3/uL MPV (7.5-11.0) fL Gran % (36.0-66.0) % Immature Gran % (Auto) (0.00-0.4) % Nucleat RBC Rel Count (0.00-0.1) % Eos # (Auto) (0-0.5) x10^3/uL Immature Gran # (Auto) (0.00-0.03) x10^3u/L Absolute Lymphs (auto) (1.0-4.6) x10^3/uL Absolute Monos (auto) (0.0-1.3) x10^3/uL Absolute Nucleated RBC (0.00-0.01) x10^3u/L Lymphocytes % (24.0-44.0) % Monocytes % (0.0-12.0) % Eosinophils % (0.00-5.0) % Basophils % (0.0-0.4) % Absolute Granulocytes (1.4-6.9) x10^3/uL Basophils # (0-0.4) x10^3/uL PT 12.4 (9.4-12.5) SECONDS INR 1.15 (0.8-3.0) APTT 34.8 (25.1-36.5) SECONDS Sodium 140 (137-145) mmol/L Potassium 3.9 (3.5-5.1) mmol/L Chloride 104 (98-107) mmol/L Carbon Dioxide 24 (22-30) mmol/L Anion Gap 16.3 H (5-15) MEQ/L BUN 49 H (7-17) mg/dL Creatinine 2.22 H (0.52-1.04) mg/dL Estimated GFR 22.4 ML/MIN Glucose 58 L (74-106) mg/dL POC Glucometer (74 to 106) mg/dL Lactic Acid (0.4-2.0) Calcium 8.9 (8.4-10.2) mg/dL Total Bilirubin 0.70 (0.2-1.3) mg/dL AST 31 (14-36) U/L ALT 32 (0-35) U/L Alkaline Phosphatase 109 (38-126) U/L Troponin I 0.015 (0.000-0.034) ng/mL NT-Pro-B Natriuret Pep 814 (<300) pg/mL Serum Total Protein 7.8 (6.3-8.2) g/dL Albumin 3.7 (3.5-5.0) g/dL Urine Color (Yellow) Urine Appearance (Clear) Urine pH (4.6-8.0) Ur Specific [place] (1.005-1.030) Urine Protein (Negative) Urine Glucose (UA) (Negative) mg/dL Urine Ketones (Negative) Urine Blood (Negative) Urine Nitrite (Negative) Urine Bilirubin (Negative) Urine Urobilinogen (0.2) mg/dL Ur Leukocyte Esterase (Negative) U Hyaline Cast (Auto) (0-2) /LPF Urine Microscopic RBC (0-5) /HPF Urine Microscopic WBC (0-5) /HPF Ur Epithelial Cells (None Seen) /HPF Urine Bacteria (None Seen) /HPF Urine Culture Reflexed (NO) Influenza Type A Ag (NEGATIVE) Influenza Type B Ag (NEGATIVE) RSV (PCR) (NEGATIVE) SARS-CoV-2 (PCR) (NEGATIVE) Slides for Path Review 11/25/22 Range/Units 18:45 WBC 8.8 (4.0-10.5) x10^3/uL RBC 3.81 L (4.1-5.4) x10^6/uL Hgb 10.8 L (12.0-16.0) g/dL Hct 35.3 (35-47) % MCV 92.7 (78-100) fL MCH 28.3 (26-32) pg MCHC 30.6 L (32-36) g/dL RDW 15.5 H (11.5-14.0) % Plt Count 202 (150-450) x10^3/uL MPV 9.5 (7.5-11.0) fL Gran % 65.0 (36.0-66.0) % Immature Gran % (Auto) 0.6 H (0.00-0.4) % Nucleat RBC Rel Count 0.0 (0.00-0.1) % Eos # (Auto) 0.46 (0-0.5) x10^3/uL Immature Gran # (Auto) 0.05 H (0.00-0.03) x10^3u/L Absolute Lymphs (auto) 1.60 (1.0-4.6) x10^3/uL Absolute Monos (auto) 0.91 (0.0-1.3) x10^3/uL Absolute Nucleated RBC 0.00 (0.00-0.01) x10^3u/L Lymphocytes % 18.2 L (24.0-44.0) % Monocytes % 10.4 (0.0-12.0) % Eosinophils % 5.2 H (0.00-5.0) % Basophils % 0.6 (0.0-0.4) % Absolute Granulocytes 5.72 (1.4-6.9) x10^3/uL Basophils # 0.05 (0-0.4) x10^3/uL PT (9.4-12.5) SECONDS INR (0.8-3.0) APTT (25.1-36.5) SECONDS Sodium (137-145) mmol/L Potassium (3.5-5.1) mmol/L Chloride (98-107) mmol/L Carbon Dioxide (22-30) mmol/L Anion Gap (5-15) MEQ/L BUN (7-17) mg/dL Creatinine (0.52-1.04) mg/dL Estimated GFR ML/MIN Glucose (74-106) mg/dL POC Glucometer (74 to 106) mg/dL Lactic Acid (0.4-2.0) Calcium (8.4-10.2) mg/dL Total Bilirubin (0.2-1.3) mg/dL AST (14-36) U/L ALT (0-35) U/L Alkaline Phosphatase (38-126) U/L Troponin I (0.000-0.034) ng/mL NT-Pro-B Natriuret Pep (<300) pg/mL Serum Total Protein (6.3-8.2) g/dL Albumin (3.5-5.0) g/dL Urine Color (Yellow) Urine Appearance (Clear) Urine pH (4.6-8.0) Ur Specific [place] (1.005-1.030) Urine Protein (Negative) Urine Glucose (UA) (Negative) mg/dL Urine Ketones (Negative) Urine Blood (Negative) Urine Nitrite (Negative) Urine Bilirubin (Negative) Urine Urobilinogen (0.2) mg/dL Ur Leukocyte Esterase (Negative) U Hyaline Cast (Auto) (0-2) /LPF Urine Microscopic RBC (0-5) /HPF Urine Microscopic WBC (0-5) /HPF Ur Epithelial Cells (None Seen) /HPF Urine Bacteria (None Seen) /HPF Urine Culture Reflexed (NO) Influenza Type A Ag (NEGATIVE) Influenza Type B Ag (NEGATIVE) RSV (PCR) (NEGATIVE) SARS-CoV-2 (PCR) (NEGATIVE) Slides for Path Review - Progress Progress: re-examined Air Movement: fair Blood Culture(s) Obtained: Yes Antibiotics given: Yes Discussed with Dr.: Other (Dr. Torres hospitalist) Will see patient in: hospital (observation) Counseled pt/family regarding: lab results, diagnosis, rad results <LUIZ BURCIAGA - Last Filed: 11/25/22 21:23> <JOHNNY WORKMAN - Last Filed: 12/02/22 07:36> - Progress Progress Note: 11/25/22 21:24 82 years old female with multiple comorbidities including chronic respiratory failure secondary to COPD on 2 L oxygen, hypertension, hyperlipidemia, atrial fibrillation with pacemaker placement on Eliquis, diabetes mellitus presented in the ER with increasing cough productive of clear to yellow sputum and generalized weakness fatigue and tiredness. Patient is checked out to me at shift change from Dr. Workman with pending CT chest. During my evaluation she still have some wheezing, I have given her breathing treatment with DuoNeb and Solu-Medrol. Patient EKG showed paced rhythm and has negative initial troponin. Has normal white count and lactate. CT showed postobstructive right lower lobe atelectasis which is chronic and some new right middle lobe atelectasis and also on new lingula and left lower lobe airspace disease. Started on antibiotics. Patient also has worsening of renal function with a baseline creatinine of 1.6 and today 2.2, started on gentle hydration. I have discussed in detail about lab work, imaging findings and needing for antibiotic and frequent nebs and steroid along with fluids, observation admission with patient and family in detail who understand and agree with it. I have discussed with Tyesha Torres, reviewed history, work-up and agreed with admission. (LUIZ BURCIAGA) 11/25/22 19:03 Care turned over to Dr. Burciaga at 1900 (JOHNNY WORKMAN) Medical Desision Making - Independent Historian Additional History obtained from: Child, Family - Discussion of managment Care discussed with:: hospitalist (Dr. Torres) Reviewed:: Test results Agreed on:: Treatment plan, place in obs Will see patient: in hospital - Diagnostic Testing Diagnostic test were ordered, analyzed, and reviewed by me: Yes Radiological Interpretation: Interpreted by me, Teleradiologist Report - Risk of complications The pt has a high risk of morbidity or mortality based on: Decision regarding hospitilization or escalation of hosp level of care <LUIZ BURCIAGA - Last Filed: 11/25/22 21:23> - Departure Departure Disposition: Observation Critical Care Time: No <LUIZ BURCIAGA - Last Filed: 11/25/22 21:23> <JOHNNY WORKMAN - Last Filed: 12/02/22 07:36> - Departure Clinical Impression: COPD exacerbation, Pneumonia, ELYSE (acute kidney injury) Condition: Stable
[2022-11-25 18:49] LABS: Absolute Neutrophil Ct (ANC) 5.72 x10^3/uL (1.4-6.9); BASOPHIL % 0.6 % (0.0-0.4); Basophil (Absolute #) 0.05 x10^3/uL (0-0.4); Eosinophil % 5.2 % (0.00-5.0); Eosinophil (Absolute #) 0.46 x10^3/uL (0-0.5); Hematocrit 35.3 % (35-47); Hemoglobin 10.8 g/dL (12.0-16.0); IMMATURE GRAN # 0.05 x10^3u/L (0.00-0.03); IMMATURE GRAN % 0.6 % (0.00-0.4); Lymphocytes % 18.2 % (24.0-44.0); Mean Cell Volume 92.7 fL (78-100); Mean Corpuscular Hemoglobin 28.3 pg (26-32); Mean Corpuscular Hgb Concent. 30.6 g/dL (32-36); Mean Platelet Volume 9.5 fL (7.5-11.0); Monocyte (Absolute #) 0.91 x10^3/uL (0.0-1.3); Monocytes % 10.4 % (0.0-12.0); Platelet Count 202 x10^3/uL (150-450); Red Blood Count 3.81 x10^6/uL (4.1-5.4); Red Cell Distribution Width 15.5 % (11.5-14.0); White Blood Count 8.8 x10^3/uL (4.0-10.5)
[2022-11-25 19:09] LABS: INR 1.15 (0.8-3.0); PROTIME 12.4 SECONDS (9.4-12.5); PTT 34.8 SECONDS (25.1-36.5)
[2022-11-25 19:16] LABS: ALBUMIN 3.7 g/dL (3.5-5.0); ANION GAP 16.3 MEQ/L (5-15); BILIRUBIN,TOTAL 0.7 mg/dL (0.2-1.3); Calcium 8.9 mg/dL (8.4-10.2); Creatinine 1 2.22 mg/dL (0.52-1.04); EST GLOMERULAR FILTRATION RATE 22.4 ML/MIN; Potassium 3.9 mmol/L (3.5-5.1); Total Protein 7.8 g/dL (6.3-8.2)
[2022-11-25 19:29] LABS: INFLUENZA A NEGATIVE (NEGATIVE); INFLUENZA B NEGATIVE (NEGATIVE); RESPIRATORY SYNCTIAL VIRUS NEGATIVE (NEGATIVE); SARS-CoV-2 Xpert Express NEGATIVE (NEGATIVE)
[2022-11-25] MEDS ORDERED: solu-MEDROL 125 MG, Sterile H2O 10 ml 2 ML IV ONE ×2 (20:55)
[2022-11-25] MEDS ORDERED: DUONEB 0.5-3 MG/3 ml Neb IH ONE ×2 (20:55→21:06)
[2022-11-25] MEDS ORDERED: Zithromax 500 MG/ 250 ML NaCl Premix 500 MG/250 ML IVPB IV STA (20:55)
[2022-11-25] MEDS ORDERED: ROCEPHIN 1 Gm-D5w 50 ml Bag** 1 G/50 ML IVPB IV STA (20:55)
[2022-11-25] MEDS ORDERED: ROCEPHIN 1 Gm-D5w 50 ml Bag** 1 G/50 ML IVPB IV ONE (21:38)
[2022-11-25] MEDS ORDERED: Sterile H2O 10 ml IJ ONE (21:38)
[2022-11-25] MEDS ORDERED: solu-MEDROL ONE ×2 (21:38→23:55)
[2022-11-25] MEDS: Sodium Chloride 0.9% 1000 ML 1,000 ML IV SCH (21:42)
[2022-11-25] MEDS ORDERED: Zofran 4 MG/2 ML VIAL IV PRN (22:07)
[2022-11-25] MEDS ORDERED: TYLENOL 325 MG PO PRN (22:07)
[2022-11-25] MEDS ORDERED: Klor Con PO SCH (23:37)
[2022-11-25] MEDS ORDERED: LIPITOR 40MG PO SCH (23:43)
[2022-11-26] MEDS: zyPREXA 5MG TABLET PO SCH ×2 (00:10→21:00)
[2022-11-26] MEDS: Namenda 5 MG PO SCH ×2 (00:10→21:00)
[2022-11-26] MEDS: ELIQUIS 2.5 MG TABLET PO SCH ×3 (00:11→20:59)
[2022-11-26] MEDS: solu-MEDROL 60 MG, Sterile H2O 10 ml 2 ML IV SCH ×4 (00:11→05:45)
[2022-11-26 01:04] LABS: Appearance Cloudy (Clear); Bilirubin Negative (Negative); Blood Trace (Negative); Glucose, Urine Negative (Negative); Ketones Negative (Negative); Leukocyte Esterase Large (Negative); Nitrite Negative (Negative); Ph 5.5 (4.6-8.0); Protein,Urine Dip Negative (Negative); Specific Gravity <=1.005 (1.005-1.030); Urobilinogen 0.2 mg/dL (0.2)
[2022-11-26 01:13] LABS: Bacteria None Seen /HPF (None Seen); Epithelial Cells None Seen /HPF (None Seen); Hyaline Casts NONE SEEN /LPF (0-2); RBC 0-2 /HPF (0-5); WBC >100 /HPF (0-5)
[2022-11-26] MEDS: DUONEB 0.5-3 MG/3 ml Neb IH SCH ×3 (01:14→17:45)
[2022-11-26 01:29] LABS: ADD URINE CULTURE? YES (NO)
[2022-11-26] MEDS: Pepcid 20 MG VIAL IV SCH ×3 (02:05→21:01)
[2022-11-26 04:38] LABS: Absolute Neutrophil Ct (ANC) 6.89 x10^3/uL (1.4-6.9); BASOPHIL % 0.7 % (0.0-0.4); Basophil (Absolute #) 0.05 x10^3/uL (0-0.4); Eosinophil % 0.1 % (0.00-5.0); Eosinophil (Absolute #) 0.01 x10^3/uL (0-0.5); Hematocrit 39.3 % (35-47); Hemoglobin 11.3 g/dL (12.0-16.0); IMMATURE GRAN # 0.04 x10^3u/L (0.00-0.03); IMMATURE GRAN % 0.5 % (0.00-0.4); Lymphocyte (Absolute #) 0.53 x10^3/uL (1.0-4.6); Mean Cell Volume 98.3 fL (78-100); Mean Corpuscular Hemoglobin 28.3 pg (26-32); Mean Corpuscular Hgb Concent. 28.8 g/dL (32-36); Mean Platelet Volume 9.9 fL (7.5-11.0); Monocyte (Absolute #) 0.08 x10^3/uL (0.0-1.3); Monocytes % 1.1 % (0.0-12.0); Neutrophil % 90.6 % (36.0-66.0); Platelet Count 207 x10^3/uL (150-450); Red Cell Distribution Width 15.4 % (11.5-14.0); White Blood Count 7.6 x10^3/uL (4.0-10.5)
[2022-11-26 04:47] LABS: ALBUMIN 3.6 g/dL (3.5-5.0); ANION GAP 17.4 MEQ/L (5-15); BILIRUBIN,TOTAL 0.5 mg/dL (0.2-1.3); Calcium 8.8 mg/dL (8.4-10.2); Creatinine 1 1.93 mg/dL (0.52-1.04); EST GLOMERULAR FILTRATION RATE 26.4 ML/MIN; Potassium 4.5 mmol/L (3.5-5.1); Total Protein 7.5 g/dL (6.3-8.2)
[2022-11-26] MEDS ORDERED: solu-MEDROL ONE (05:16)
[2022-11-26] MEDS ORDERED: Sterile H2O 10 ml IJ ONE (05:16)
[2022-11-26 06:30] LABS: Slide Review 1 YES
[2022-11-26] MEDS ORDERED: DUONEB 0.5-3 MG/3 ml Neb IH ONE (06:50)
[2022-11-26] MEDS: Advair Hfa 115/21 Common canister IH SCH ×2 (07:13→17:45)
--- NOTE | 2022-11-26 08:03 | PCM.HP ---
History of Present Illness - Chief Complaint Chief Complaint: ELYSE, PNEUMONIA, COPD EXACB History of Present Illness: is a 82 year old female who was brought to the ER by her daughter with cough productive of brown mucous and eye drainage, she is very hard of hearing and no family is present today at bedside during my exam. she is pleasant and cooperative but unable to hear well enough to answer questions. - Review of Systems Constitutional: No Fever, No Chills Respiratory: Cough Cardiac: No Chest Pain, No Edema, No Syncope Abdominal/Gastrointestinal: No Abdominal Pain, No Nausea, No Vomiting, No Diarrhea Genitourinary Symptoms: No Dysuria Skin: No Rash All Other Systems: Reviewed and Negative Medications & Allergies Home Medications: Home Medication List Amlodipine Besylate 5 mg [Norvasc 5 mg] 5 mg PO DAILY 02/08/18 [History Confirmed 11/25/22] Apixaban [Eliquis 5 mg Tablet] 2.5 mg PO BID 02/08/18 [History Confirmed 11/25/22] Atorvastatin Calcium 40 mg PO HS 02/08/18 [History Confirmed 11/25/22] Bumetanide 1 mg [Bumex 1 mg] 1 mg PO DAILY 02/08/18 [History Confirmed 11/25/22] Donepezil HCl [Aricept] 5 mg PO DAILY 02/08/18 [History Confirmed 11/25/22] Folic Acid 1 mg [Folate 1 mg] 1 mg PO DAILY 02/08/18 [History Confirmed 11/25/22] Losartan Potassium [Cozaar] 100 mg PO DAILY 02/08/18 [History Confirmed 11/25/22] Memantine HCl 5 mg PO QHS 02/08/18 [History Confirmed 11/25/22] Nitroglycerin 0.4 mg Tablet [Nitrostat 0.4 MG Tablet] 1 tablet SL Q5MIN PRN MR X 3 PRN 02/08/18 [History Confirmed 11/25/22] PANTOPRAZOLE 40 mg Tablet [Protonix 40MG Tablet] 40 mg PO DAILY 02/08/18 [History Confirmed 11/25/22] OLANZapine [Olanzapine] 10 mg PO HS 02/27/19 [History Confirmed 11/25/22] Insulin Glargine,Hum.rec.anlog [Lantus] 30 unit SQ DAILY 04/19/19 [History Confirmed 11/25/22] Aspirin 81 gm Chew [Baby Aspirin 81 mg Chew] 81 mg PO DAILY 08/30/19 [History Confirmed 11/25/22] Escitalopram Oxalate [Lexapro] 10 mg PO DAILY 08/30/19 [History Confirmed 11/25/22] Insulin Lispro [Humalog] 10 unit SQ TIDWM 08/31/19 [History Confirmed 11/25/22] Potassium Chloride 7.5 ml PO BID 07/01/21 [History Confirmed 11/25/22] Fluticasone/Umeclidin/Vilanter [Trelegy Ellipta 100-62.5-25] 1 puff IH DAILY [History Confirmed 11/25/22] Acetaminophen with Codeine [Acetaminophen-Cod #3 Tablet] 1 each PO Q6HPRN PRN 05/12/22 [History Confirmed 11/25/22] Ergocalciferol (Vitamin D2) [Vitamin D2] 50,000 units PO WEEKLY 05/12/22 [History Confirmed 11/25/22] Ipratropium/Albuterol Sulfate [Iprat-Albut 0.5-3(2.5) mg/3 ml] 1 neb IH BID 05/12/22 [History Confirmed 11/25/22] Guaifenesin 600 mg ER [Mucinex 600MG ER Tabs] 600 mg PO BID 11/26/22 [History Confirmed 11/26/22] Allergies/Adverse Reactions: Allergies Allergy/AdvReac Type Severity Reaction Status Date / Time carvedilol Allergy Verified 05/11/22 21:53 - Past Medical History Past Medical History: Yes Neurological History: Alzheimer's Disease, Dementia, Peripheral Neuropathy, Stroke ENT History: Cataracts Cardiac History: Hypertension, Other Respiratory History: CHF, COPD, Pneumonia, Sleep Apnea, Other Endocrine Medical History: Diabetes Type II Musculoskelatal History: Arthritis GI Medical History: Diverticulitis, Irritable Bowel History: No Pertinent History, Renal Disease Pyscho-Social History: No Pertinent History Reproductive Disorders: No Pertinent History, Other Comment: ovarian cysts - Past Surgical History Past Surgical History: Yes Neuro Surgical History: No Pertinent History Cardiac History: No Pertinent History, Internal Defibrillator, Pacemaker Respiratory Surgery: No Pertinent History GI Surgical History: No Pertinent History Genitourinary Surgical Hx: Other Musculskeletal Surgical Hx: No Pertinent History Female Surgical History: Tubal Ligation Other Surgical History: ear surgery, cataract surgery, bladder tuck,lasik surgery. Kidney removed - Social History Smoking Status: Never smoker How long have you smoked: 50 Exposure to second hand smoke: No Alcohol: None Drug Use: none Significant Family History: no pertinent family hx - Physical Exam Vital Signs: Vital Signs - 24 hr Temp Pulse Resp BP BP Pulse Ox 11/26/22 07:18 96.7 F 60 23 141/67 98 11/26/22 07:04 60 23 98 11/26/22 04:00 97.9 F 57 L 25 H 115/58 100 11/26/22 01:19 63 20 97 11/26/22 00:00 96.9 F 63 20 114/56 97 11/25/22 23:00 96.9 F 60 17 114/56 95 11/25/22 21:56 60 32 H 96 11/25/22 21:50 96 11/25/22 21:40 96 11/25/22 21:38 95 11/25/22 21:01 122/74 11/25/22 20:30 64 22 113/70 90 L 11/25/22 20:00 60 22 107/62 98 11/25/22 19:30 60 22 103/64 98 11/25/22 19:03 98 11/25/22 19:00 60 20 97/57 97 11/25/22 18:30 99/62 90 L 11/25/22 18:03 91/59 98 11/25/22 17:50 96.7 F 65 91/59 98 General Appearance: no apparent distress, alert Neurologic Exam: alert, oriented x 3 Respiratory Exam: crackles/rales, rhonchi Cardiovascular Exam: regular rate/rhythm, normal heart sounds, normal peripheral pulses Gastrointestinal/Abdomen Exam: soft, normal bowel sounds, No tenderness, No mass Extremity Exam: normal inspection, normal range of motion, pelvis stable Results - Labs Lab/Micro Results: Lab Results-Last 24 Hours 11/25/22 11/25/22 11/25/22 Range/Units 18:45 18:45 18:45 WBC 8.8 (4.0-10.5) x10^3/uL RBC 3.81 L (4.1-5.4) x10^6/uL Hgb 10.8 L (12.0-16.0) g/dL Hct 35.3 (35-47) % MCV 92.7 (78-100) fL MCH 28.3 (26-32) pg MCHC 30.6 L (32-36) g/dL RDW 15.5 H (11.5-14.0) % Plt Count 202 (150-450) x10^3/uL MPV 9.5 (7.5-11.0) fL Gran % 65.0 (36.0-66.0) % Immature Gran % (Auto) 0.6 H (0.00-0.4) % Nucleat RBC Rel Count 0.0 (0.00-0.1) % Eos # (Auto) 0.46 (0-0.5) x10^3/uL Immature Gran # (Auto) 0.05 H (0.00-0.03) x10^3u/L Absolute Lymphs (auto) 1.60 (1.0-4.6) x10^3/uL Absolute Monos (auto) 0.91 (0.0-1.3) x10^3/uL Absolute Nucleated RBC 0.00 (0.00-0.01) x10^3u/L Lymphocytes % 18.2 L (24.0-44.0) % Monocytes % 10.4 (0.0-12.0) % Eosinophils % 5.2 H (0.00-5.0) % Basophils % 0.6 (0.0-0.4) % Absolute Granulocytes 5.72 (1.4-6.9) x10^3/uL Basophils # 0.05 (0-0.4) x10^3/uL PT 12.4 (9.4-12.5) SECONDS INR 1.15 (0.8-3.0) APTT 34.8 (25.1-36.5) SECONDS Sodium 140 (137-145) mmol/L Potassium 3.9 (3.5-5.1) mmol/L Chloride 104 (98-107) mmol/L Carbon Dioxide 24 (22-30) mmol/L Anion Gap 16.3 H (5-15) MEQ/L BUN 49 H (7-17) mg/dL Creatinine 2.22 H (0.52-1.04) mg/dL Estimated GFR 22.4 ML/MIN Glucose 58 L (74-106) mg/dL POC Glucometer (74 to 106) mg/dL Lactic Acid (0.4-2.0) Calcium 8.9 (8.4-10.2) mg/dL Total Bilirubin 0.70 (0.2-1.3) mg/dL AST 31 (14-36) U/L ALT 32 (0-35) U/L Alkaline Phosphatase 109 (38-126) U/L Troponin I (0.000-0.034) ng/mL NT-Pro-B Natriuret Pep 814 (<300) pg/mL Serum Total Protein 7.8 (6.3-8.2) g/dL Albumin 3.7 (3.5-5.0) g/dL Urine Color (Yellow) Urine Appearance (Clear) Urine pH (4.6-8.0) Ur Specific [place] (1.005-1.030) Urine Protein (Negative) Urine Glucose (UA) (Negative) mg/dL Urine Ketones (Negative) Urine Blood (Negative) Urine Nitrite (Negative) Urine Bilirubin (Negative) Urine Urobilinogen (0.2) mg/dL Ur Leukocyte Esterase (Negative) U Hyaline Cast (Auto) (0-2) /LPF Urine Microscopic RBC (0-5) /HPF Urine Microscopic WBC (0-5) /HPF Ur Epithelial Cells (None Seen) /HPF Urine Bacteria (None Seen) /HPF Urine Culture Reflexed (NO) Influenza Type A Ag (NEGATIVE) Influenza Type B Ag (NEGATIVE) RSV (PCR) (NEGATIVE) SARS-CoV-2 (PCR) (NEGATIVE) Slides for Path Review 11/25/22 11/25/22 11/25/22 Range/Units 18:45 18:45 18:51 WBC (4.0-10.5) x10^3/uL RBC (4.1-5.4) x10^6/uL Hgb (12.0-16.0) g/dL Hct (35-47) % MCV (78-100) fL MCH (26-32) pg MCHC (32-36) g/dL RDW (11.5-14.0) % Plt Count (150-450) x10^3/uL MPV (7.5-11.0) fL Gran % (36.0-66.0) % Immature Gran % (Auto) (0.00-0.4) % Nucleat RBC Rel Count (0.00-0.1) % Eos # (Auto) (0-0.5) x10^3/uL Immature Gran # (Auto) (0.00-0.03) x10^3u/L Absolute Lymphs (auto) (1.0-4.6) x10^3/uL Absolute Monos (auto) (0.0-1.3) x10^3/uL Absolute Nucleated RBC (0.00-0.01) x10^3u/L Lymphocytes % (24.0-44.0) % Monocytes % (0.0-12.0) % Eosinophils % (0.00-5.0) % Basophils % (0.0-0.4) % Absolute Granulocytes (1.4-6.9) x10^3/uL Basophils # (0-0.4) x10^3/uL PT (9.4-12.5) SECONDS INR (0.8-3.0) APTT (25.1-36.5) SECONDS Sodium (137-145) mmol/L Potassium (3.5-5.1) mmol/L Chloride (98-107) mmol/L Carbon Dioxide (22-30) mmol/L Anion Gap (5-15) MEQ/L BUN (7-17) mg/dL Creatinine (0.52-1.04) mg/dL Estimated GFR ML/MIN Glucose (74-106) mg/dL POC Glucometer (74 to 106) mg/dL Lactic Acid 1.0 (0.4-2.0) Calcium (8.4-10.2) mg/dL Total Bilirubin (0.2-1.3) mg/dL AST (14-36) U/L ALT (0-35) U/L Alkaline Phosphatase (38-126) U/L Troponin I 0.015 (0.000-0.034) ng/mL NT-Pro-B Natriuret Pep (<300) pg/mL Serum Total Protein (6.3-8.2) g/dL Albumin (3.5-5.0) g/dL Urine Color (Yellow) Urine Appearance (Clear) Urine pH (4.6-8.0) Ur Specific [place] (1.005-1.030) Urine Protein (Negative) Urine Glucose (UA) (Negative) mg/dL Urine Ketones (Negative) Urine Blood (Negative) Urine Nitrite (Negative) Urine Bilirubin (Negative) Urine Urobilinogen (0.2) mg/dL Ur Leukocyte Esterase (Negative) U Hyaline Cast (Auto) (0-2) /LPF Urine Microscopic RBC (0-5) /HPF Urine Microscopic WBC (0-5) /HPF Ur Epithelial Cells (None Seen) /HPF Urine Bacteria (None Seen) /HPF Urine Culture Reflexed (NO) Influenza Type A Ag NEGATIVE (NEGATIVE) Influenza Type B Ag NEGATIVE (NEGATIVE) RSV (PCR) NEGATIVE (NEGATIVE) SARS-CoV-2 (PCR) NEGATIVE (NEGATIVE) Slides for Path Review 11/25/22 11/25/22 11/26/22 Range/Units 22:21 22:40 00:56 WBC (4.0-10.5) x10^3/uL RBC (4.1-5.4) x10^6/uL Hgb (12.0-16.0) g/dL Hct (35-47) % MCV (78-100) fL MCH (26-32) pg MCHC (32-36) g/dL RDW (11.5-14.0) % Plt Count (150-450) x10^3/uL MPV (7.5-11.0) fL Gran % (36.0-66.0) % Immature Gran % (Auto) (0.00-0.4) % Nucleat RBC Rel Count (0.00-0.1) % Eos # (Auto) (0-0.5) x10^3/uL Immature Gran # (Auto) (0.00-0.03) x10^3u/L Absolute Lymphs (auto) (1.0-4.6) x10^3/uL Absolute Monos (auto) (0.0-1.3) x10^3/uL Absolute Nucleated RBC (0.00-0.01) x10^3u/L Lymphocytes % (24.0-44.0) % Monocytes % (0.0-12.0) % Eosinophils % (0.00-5.0) % Basophils % (0.0-0.4) % Absolute Granulocytes (1.4-6.9) x10^3/uL Basophils # (0-0.4) x10^3/uL PT (9.4-12.5) SECONDS INR (0.8-3.0) APTT (25.1-36.5) SECONDS Sodium (137-145) mmol/L Potassium (3.5-5.1) mmol/L Chloride (98-107) mmol/L Carbon Dioxide (22-30) mmol/L Anion Gap (5-15) MEQ/L BUN (7-17) mg/dL Creatinine (0.52-1.04) mg/dL Estimated GFR ML/MIN Glucose (74-106) mg/dL POC Glucometer 137 H (74 to 106) mg/dL Lactic Acid (0.4-2.0) Calcium (8.4-10.2) mg/dL Total Bilirubin (0.2-1.3) mg/dL AST (14-36) U/L ALT (0-35) U/L Alkaline Phosphatase (38-126) U/L Troponin I < 0.012 (0.000-0.034) ng/mL NT-Pro-B Natriuret Pep (<300) pg/mL Serum Total Protein (6.3-8.2) g/dL Albumin (3.5-5.0) g/dL Urine Color Yellow (Yellow) Urine Appearance Cloudy A (Clear) Urine pH 5.5 (4.6-8.0) Ur Specific [place] <=1.005 (1.005-1.030) Urine Protein Negative (Negative) Urine Glucose (UA) Negative (Negative) mg/dL Urine Ketones Negative (Negative) Urine Blood Trace (Negative) Urine Nitrite Negative (Negative) Urine Bilirubin Negative (Negative) Urine Urobilinogen 0.2 (0.2) mg/dL Ur Leukocyte Esterase Large A (Negative) U Hyaline Cast (Auto) NONE SEEN (0-2) /LPF Urine Microscopic RBC 0-2 (0-5) /HPF Urine Microscopic WBC >100 A (0-5) /HPF Ur Epithelial Cells None Seen (None Seen) /HPF Urine Bacteria None Seen (None Seen) /HPF Urine Culture Reflexed YES (NO) Influenza Type A Ag (NEGATIVE) Influenza Type B Ag (NEGATIVE) RSV (PCR) (NEGATIVE) SARS-CoV-2 (PCR) (NEGATIVE) Slides for Path Review 11/26/22 11/26/22 11/26/22 Range/Units 04:00 04:00 04:00 WBC 7.6 (4.0-10.5) x10^3/uL RBC 4.00 L (4.1-5.4) x10^6/uL Hgb 11.3 L (12.0-16.0) g/dL Hct 39.3 (35-47) % MCV 98.3 D (78-100) fL MCH 28.3 (26-32) pg MCHC 28.8 L (32-36) g/dL RDW 15.4 H (11.5-14.0) % Plt Count 207 (150-450) x10^3/uL MPV 9.9 (7.5-11.0) fL Gran % 90.6 H (36.0-66.0) % Immature Gran % (Auto) 0.5 H (0.00-0.4) % Nucleat RBC Rel Count 0.0 (0.00-0.1) % Eos # (Auto) 0.01 (0-0.5) x10^3/uL Immature Gran # (Auto) 0.04 H (0.00-0.03) x10^3u/L Absolute Lymphs (auto) 0.53 L (1.0-4.6) x10^3/uL Absolute Monos (auto) 0.08 (0.0-1.3) x10^3/uL Absolute Nucleated RBC 0.00 (0.00-0.01) x10^3u/L Lymphocytes % 7.0 L (24.0-44.0) % Monocytes % 1.1 (0.0-12.0) % Eosinophils % 0.1 (0.00-5.0) % Basophils % 0.7 (0.0-0.4) % Absolute Granulocytes 6.89 (1.4-6.9) x10^3/uL Basophils # 0.05 (0-0.4) x10^3/uL PT (9.4-12.5) SECONDS INR (0.8-3.0) APTT (25.1-36.5) SECONDS Sodium 141 (137-145) mmol/L Potassium 4.5 (3.5-5.1) mmol/L Chloride 107 (98-107) mmol/L Carbon Dioxide 21 L (22-30) mmol/L Anion Gap 17.4 H (5-15) MEQ/L BUN 49 H (7-17) mg/dL Creatinine 1.93 H (0.52-1.04) mg/dL Estimated GFR 26.4 ML/MIN Glucose 190 H (74-106) mg/dL POC Glucometer (74 to 106) mg/dL Lactic Acid (0.4-2.0) Calcium 8.8 (8.4-10.2) mg/dL Total Bilirubin 0.50 (0.2-1.3) mg/dL AST 32 (14-36) U/L ALT 33 (0-35) U/L Alkaline Phosphatase 126 (38-126) U/L Troponin I < 0.012 (0.000-0.034) ng/mL NT-Pro-B Natriuret Pep (<300) pg/mL Serum Total Protein 7.5 (6.3-8.2) g/dL Albumin 3.6 (3.5-5.0) g/dL Urine Color (Yellow) Urine Appearance (Clear) Urine pH (4.6-8.0) Ur Specific [place] (1.005-1.030) Urine Protein (Negative) Urine Glucose (UA) (Negative) mg/dL Urine Ketones (Negative) Urine Blood (Negative) Urine Nitrite (Negative) Urine Bilirubin (Negative) Urine Urobilinogen (0.2) mg/dL Ur Leukocyte Esterase (Negative) U Hyaline Cast (Auto) (0-2) /LPF Urine Microscopic RBC (0-5) /HPF Urine Microscopic WBC (0-5) /HPF Ur Epithelial Cells (None Seen) /HPF Urine Bacteria (None Seen) /HPF Urine Culture Reflexed (NO) Influenza Type A Ag (NEGATIVE) Influenza Type B Ag (NEGATIVE) RSV (PCR) (NEGATIVE) SARS-CoV-2 (PCR) (NEGATIVE) Slides for Path Review YES 11/26/22 Range/Units 07:08 WBC (4.0-10.5) x10^3/uL RBC (4.1-5.4) x10^6/uL Hgb (12.0-16.0) g/dL Hct (35-47) % MCV (78-100) fL MCH (26-32) pg MCHC (32-36) g/dL RDW (11.5-14.0) % Plt Count (150-450) x10^3/uL MPV (7.5-11.0) fL Gran % (36.0-66.0) % Immature Gran % (Auto) (0.00-0.4) % Nucleat RBC Rel Count (0.00-0.1) % Eos # (Auto) (0-0.5) x10^3/uL Immature Gran # (Auto) (0.00-0.03) x10^3u/L Absolute Lymphs (auto) (1.0-4.6) x10^3/uL Absolute Monos (auto) (0.0-1.3) x10^3/uL Absolute Nucleated RBC (0.00-0.01) x10^3u/L Lymphocytes % (24.0-44.0) % Monocytes % (0.0-12.0) % Eosinophils % (0.00-5.0) % Basophils % (0.0-0.4) % Absolute Granulocytes (1.4-6.9) x10^3/uL Basophils # (0-0.4) x10^3/uL PT (9.4-12.5) SECONDS INR (0.8-3.0) APTT (25.1-36.5) SECONDS Sodium (137-145) mmol/L Potassium (3.5-5.1) mmol/L Chloride (98-107) mmol/L Carbon Dioxide (22-30) mmol/L Anion Gap (5-15) MEQ/L BUN (7-17) mg/dL Creatinine (0.52-1.04) mg/dL Estimated GFR ML/MIN Glucose (74-106) mg/dL POC Glucometer 226 H (74 to 106) mg/dL Lactic Acid (0.4-2.0) Calcium (8.4-10.2) mg/dL Total Bilirubin (0.2-1.3) mg/dL AST (14-36) U/L ALT (0-35) U/L Alkaline Phosphatase (38-126) U/L Troponin I (0.000-0.034) ng/mL NT-Pro-B Natriuret Pep (<300) pg/mL Serum Total Protein (6.3-8.2) g/dL Albumin (3.5-5.0) g/dL Urine Color (Yellow) Urine Appearance (Clear) Urine pH (4.6-8.0) Ur Specific [place] (1.005-1.030) Urine Protein (Negative) Urine Glucose (UA) (Negative) mg/dL Urine Ketones (Negative) Urine Blood (Negative) Urine Nitrite (Negative) Urine Bilirubin (Negative) Urine Urobilinogen (0.2) mg/dL Ur Leukocyte Esterase (Negative) U Hyaline Cast (Auto) (0-2) /LPF Urine Microscopic RBC (0-5) /HPF Urine Microscopic WBC (0-5) /HPF Ur Epithelial Cells (None Seen) /HPF Urine Bacteria (None Seen) /HPF Urine Culture Reflexed (NO) Influenza Type A Ag (NEGATIVE) Influenza Type B Ag (NEGATIVE) RSV (PCR) (NEGATIVE) SARS-CoV-2 (PCR) (NEGATIVE) Slides for Path Review Accuchecks Date 11/26/22 Date 11/25/22 Time 07:18 Time 22:15 - Radiology Impressions Radiology Exams & Impressions: Radiology Procedures Category Date Time Status CHEST WITHOUT CONTRAST [CT] Stat Exams 11/25/22 18:08 Taken - Other Procedures and Tests Respiratory Therapy 11/25/22 21:56 Respiratory Therapy Assessment DAILY 11/26/22 01:18 BiPap/CPAP ROUTINE Oxygen Nasal Cannula 4 lpm Assessment/Plan (1) Pneumonia Current Visit: Yes Status: Acute Assessment & Plan: continue rocephin and zithromax at this time, patient is hemodynamically stable and in no respiratory distress. resume home dose of eliquis as well. Code(s): J18.9 - PNEUMONIA, UNSPECIFIED ORGANISM (2) COPD exacerbation Current Visit: Yes Status: Acute Code(s): J44.1 - CHRONIC OBSTRUCTIVE PULMONARY DISEASE W (ACUTE) EXACERBATION (3) ELYSE (acute kidney injury) Current Visit: Yes Status: Acute Assessment & Plan: improving since admission, hold loop diuretics Code(s): N17.9 - ACUTE KIDNEY FAILURE, UNSPECIFIED
[2022-11-26] MEDS: HUMALOG SQ PRN ×4 (08:18→21:13)
[2022-11-26] MEDS ORDERED: NON-FORMULARY ITEM (Potassium Chloride [Potassium Chloride] 20 MEQ/15 ML Liquid) PO SCH (10:00)
[2022-11-26] MEDS ORDERED: NON-FORMULARY ITEM (Losartan Potassium [Cozaar] 100 MG Tablet) PO SCH (10:00)
[2022-11-26] MEDS: NORVASC 5 MG PO SCH (10:58)
[2022-11-26] MEDS: Lexapro PO SCH (10:59)
[2022-11-26] MEDS: Cozaar 50 MG PO SCH (10:59)
[2022-11-26] MEDS: Protonix 40MG Tablet PO SCH (10:59)
[2022-11-26] MEDS: Klor Con PO SCH ×2 (11:00→21:00)
[2022-11-26] MEDS: Sodium Chloride 0.9% 1000 ML 1,000 ML IV SCH (11:07)
[2022-11-26] MEDS: STERILE H2O IV SCH ×6 (11:07→23:25)
[2022-11-26] MEDS: SOLU MEDROL IV SCH ×6 (11:07→23:25)
--- NOTE | 2022-11-26 15:07 | XRAY ---
Indication: Cough. COPD. Aneurysm. Multiple contiguous images obtained through the chest without contrast as ordered. Comparison: January 29, 2022 Study is degraded by respiration artifact throughout. Grossly stable complete opacification right lower lobe and lesser degree right middle lobe bronchi with postobstructive atelectasis. Lingula and left lower lobe demonstrates hazy airspace disease without consolidation/effusion. Heart remains enlarged again with scattered coronary calcifications and left dual-lead pacemaker. Aorta remains markedly arteriosclerotic with grossly stable tortuous descending aorta and multifocal descending aortic saccular aneurysms. No pathologic mediastinal lymphadenopathy. Bony thorax intact again with osteopenia and mild degenerative changes throughout the spine. Interval healed left 8/9 rib fractures. Limited upper abdomen again demonstrates left nephrectomy. Impression: 1. Diffuse respiration artifact. 2. Again opacification right lower and lesser degree right middle lobe bronchi with postobstructive atelectasis. Rule out aspiration versus endobronchial mass. 3. Lingula and left lower lobe hazy airspace disease. 4. Chronic findings including cardiomegaly, extensive arteriosclerotic disease, tortuous descending aorta with multifocal saccular aneurysms, and chronic bony findings.
[2022-11-26] MEDS: Robitussin-Dm Syrup PO PRN (19:49)
[2022-11-26] MEDS: ZOCOR 20MG PO SCH (21:00)
[2022-11-26] MEDS: Zithromax 500 MG/ 250 ML NaCl Premix 500 MG/250 ML IVPB IV SCH (21:13)
[2022-11-26] MEDS: ROCEPHIN 1 Gm-D5w 50 ml Bag** 1 G/50 ML IVPB IV SCH (21:13)
[2022-11-27] MEDS: Sodium Chloride 0.9% 1000 ML 1,000 ML IV SCH (02:55)
[2022-11-27] MEDS ORDERED: Sterile H2O 10 ml IJ ONE ×2 (05:29)
[2022-11-27] MEDS ORDERED: solu-MEDROL ONE (05:29)
[2022-11-27] MEDS: Advair Hfa 115/21 Common canister IH SCH ×2 (05:30→19:17)
[2022-11-27] MEDS: DUONEB 0.5-3 MG/3 ml Neb IH SCH ×2 (05:30→19:07)
[2022-11-27 05:36] LABS: ANION GAP 19.3 MEQ/L (5-15); Calcium 8.5 mg/dL (8.4-10.2); Creatinine 1 2.11 mg/dL (0.52-1.04); EST GLOMERULAR FILTRATION RATE 23.8 ML/MIN
[2022-11-27] MEDS: SOLU MEDROL IV SCH ×2 (05:44)
[2022-11-27] MEDS: STERILE H2O IV SCH ×2 (05:44)
[2022-11-27] MEDS: Robitussin-Dm Syrup PO PRN ×2 (05:58→22:00)
[2022-11-27 07:28] LABS: Absolute Neutrophil Ct (ANC) 12.45 x10^3/uL (1.4-6.9); BASOPHIL % 0.1 % (0.0-0.4); Basophil (Absolute #) 0.02 x10^3/uL (0-0.4); Eosinophil (Absolute #) 0 x10^3/uL (0-0.5); Hematocrit 32.1 % (35-47); Hemoglobin 9.8 g/dL (12.0-16.0); IMMATURE GRAN % 0.7 % (0.00-0.4); Lymphocyte (Absolute #) 0.55 x10^3/uL (1.0-4.6); Mean Corpuscular Hemoglobin 28.1 pg (26-32); Mean Corpuscular Hgb Concent. 30.5 g/dL (32-36); Mean Platelet Volume 9.5 fL (7.5-11.0); Monocyte (Absolute #) 0.49 x10^3/uL (0.0-1.3); Monocytes % 3.6 % (0.0-12.0); Neutrophil % 91.6 % (36.0-66.0); Platelet Count 221 x10^3/uL (150-450); Red Blood Count 3.49 x10^6/uL (4.1-5.4); Red Cell Distribution Width 15.8 % (11.5-14.0); White Blood Count 13.6 x10^3/uL (4.0-10.5)
--- NOTE | 2022-11-27 08:07 | PCM.NOTE ---
Date and Time: 11/27/22804 Subjective Assessment: patient states she is feeling better today, she is pleasant and alert, very hard of hearing, labs reviewed. Objective Exam General Appearance: no apparent distress Neurologic Exam: alert, oriented x 3 Respiratory Exam: rhonchi Cardiovascular Exam: regular rate/rhythm, normal heart sounds Gastrointestinal/Abdomen Exam: soft, No tenderness, No mass OBJECTIVE DATA Vital Signs: Vital Signs - 24 hr Temp Pulse Resp BP Pulse Ox 11/27/22 07:33 98.6 F 55 L 16 98/55 95 11/27/22 05:34 66 24 98 11/27/22 04:00 98.2 F 62 32 H 119/57 99 11/26/22 23:56 97.3 F 74 32 H 144/78 95 11/26/22 20:00 98.0 F 87 21 93/56 95 11/26/22 17:46 60 16 96 11/26/22 15:44 97.1 F 65 23 113/55 11/26/22 11:38 96.9 F 73 22 132/57 97 Pain Assessment - Last Documented Pain Intensity 0 Intake and Output: Intake & Output 11/24/22 11/25/22 11/26/22 11/27/22 11:59 11:59 11:59 11:59 Intake Total 1235 2267 Output Total 450 1050 Balance 785 1217 Weight 85.5 kg 85.7 kg Lab Results: Lab Results-Last 24 Hours 11/26/22 11/26/22 11/26/22 Range/Units 11:29 15:40 20:59 WBC (4.0-10.5) x10^3/uL RBC (4.1-5.4) x10^6/uL Hgb (12.0-16.0) g/dL Hct (35-47) % MCV (78-100) fL MCH (26-32) pg MCHC (32-36) g/dL RDW (11.5-14.0) % Plt Count (150-450) x10^3/uL MPV (7.5-11.0) fL Gran % (36.0-66.0) % Immature Gran % (Auto) (0.00-0.4) % Nucleat RBC Rel Count (0.00-0.1) % Eos # (Auto) (0-0.5) x10^3/uL Immature Gran # (Auto) (0.00-0.03) x10^3u/L Absolute Lymphs (auto) (1.0-4.6) x10^3/uL Absolute Monos (auto) (0.0-1.3) x10^3/uL Absolute Nucleated RBC (0.00-0.01) x10^3u/L Lymphocytes % (24.0-44.0) % Monocytes % (0.0-12.0) % Eosinophils % (0.00-5.0) % Basophils % (0.0-0.4) % Absolute Granulocytes (1.4-6.9) x10^3/uL Basophils # (0-0.4) x10^3/uL Sodium (137-145) mmol/L Potassium (3.5-5.1) mmol/L Chloride (98-107) mmol/L Carbon Dioxide (22-30) mmol/L Anion Gap (5-15) MEQ/L BUN (7-17) mg/dL Creatinine (0.52-1.04) mg/dL Estimated GFR ML/MIN Glucose (74-106) mg/dL POC Glucometer 380 H 424 H 366 H (74 to 106) mg/dL Calcium (8.4-10.2) mg/dL 11/27/22 11/27/22 11/27/22 Range/Units 05:18 07:15 07:44 WBC 13.6 H (4.0-10.5) x10^3/uL RBC 3.49 L (4.1-5.4) x10^6/uL Hgb 9.8 L (12.0-16.0) g/dL Hct 32.1 L (35-47) % MCV 92.0 D (78-100) fL MCH 28.1 (26-32) pg MCHC 30.5 L (32-36) g/dL RDW 15.8 H (11.5-14.0) % Plt Count 221 (150-450) x10^3/uL MPV 9.5 (7.5-11.0) fL Gran % 91.6 H (36.0-66.0) % Immature Gran % (Auto) 0.7 H (0.00-0.4) % Nucleat RBC Rel Count 0.0 (0.00-0.1) % Eos # (Auto) 0 (0-0.5) x10^3/uL Immature Gran # (Auto) 0.10 H (0.00-0.03) x10^3u/L Absolute Lymphs (auto) 0.55 L (1.0-4.6) x10^3/uL Absolute Monos (auto) 0.49 (0.0-1.3) x10^3/uL Absolute Nucleated RBC 0.00 (0.00-0.01) x10^3u/L Lymphocytes % 4.0 L (24.0-44.0) % Monocytes % 3.6 (0.0-12.0) % Eosinophils % 0.0 (0.00-5.0) % Basophils % 0.1 (0.0-0.4) % Absolute Granulocytes 12.45 H (1.4-6.9) x10^3/uL Basophils # 0.02 (0-0.4) x10^3/uL Sodium 140 (137-145) mmol/L Potassium 5.0 (3.5-5.1) mmol/L Chloride 111 H (98-107) mmol/L Carbon Dioxide 15 L* (22-30) mmol/L Anion Gap 19.3 H (5-15) MEQ/L BUN 48 H (7-17) mg/dL Creatinine 2.11 H (0.52-1.04) mg/dL Estimated GFR 23.8 ML/MIN Glucose 408 H (74-106) mg/dL POC Glucometer 418 H (74 to 106) mg/dL Calcium 8.5 (8.4-10.2) mg/dL Radiology Exams: Radiology Procedures Category Date Time Status CHEST WITHOUT CONTRAST [CT] Stat Exams 11/25/22 18:08 Completed Multi-Disciplinary Progress Notes: Multi-Disciplinary Progress Notes 11/26/22 14:42 Case Management Note by Jenny Sotelo [facility] ACCEPT[facility] Initialized on 11/26/22 14:42 - END OF NOTE 11/26/22 13:00 Case Management Note by Jenny Sotelo S/W DAUGHTER CHERI- SHE REPORT THEY HAVE HAD CHRIS IN THE PAST AND WOULD LIKE TO HAVE THEM BACK AT [place] AT THIS TIME. REFERRAL FAXED AT THIS TIME. THEY WILL NEED NOTIFIED AT TIME OF DC AT [phone]. THEY WILL NEED FAXED THE DC INSTRUCTIONS, DC MED LIST, AND DC SUMMARY ( IF AVAILABLE) TO [phone] Initialized on 11/26/22 13:00 - END OF NOTE Assessment/Plan (1) Pneumonia Current Visit: Yes Status: Acute Assessment & Plan: continue rocephin/zithromax, doing better clinically Code(s): J18.9 - PNEUMONIA, UNSPECIFIED ORGANISM (2) COPD exacerbation Current Visit: Yes Status: Acute Assessment & Plan: no wheezing, d/c steroids Code(s): J44.1 - CHRONIC OBSTRUCTIVE PULMONARY DISEASE W (ACUTE) EXACERBATION (3) ELYSE (acute kidney injury) Current Visit: Yes Status: Acute Assessment & Plan: stable at this time, will d/c steroids and reduce IVF rate, low bicarb noted, will monitor. Code(s): N17.9 - ACUTE KIDNEY FAILURE, UNSPECIFIED
[2022-11-27 08:48] LABS: Slide Review 1 YES
[2022-11-27] MEDS: HUMALOG SQ PRN ×4 (09:31→22:05)
[2022-11-27] MEDS: Pepcid 20 MG VIAL IV SCH ×2 (09:34→22:00)
--- NOTE | 2022-11-27 11:50 | XRAY ---
Indication: Dysphagia. Aspiration. Modified barium swallow study performed by the Department of speech therapy with fluoroscopic assistance provided. Patient ingested multiple consistencies of liquids and solid. Full report and recommendations will be reported separately. Approximately 1 minute 2 seconds fluoroscopy used.
[2022-11-27] MEDS: Lexapro PO SCH (12:08)
[2022-11-27] MEDS: Protonix 40MG Tablet PO SCH (12:08)
[2022-11-27] MEDS: ELIQUIS 2.5 MG TABLET PO SCH ×2 (12:08→22:00)
[2022-11-27] MEDS: Klor Con PO SCH ×2 (12:08→22:00)
[2022-11-27] MEDS: Tylenol #3 Tablet PO PRN (12:12)
[2022-11-27] MEDS: Cozaar 50 MG PO SCH (16:16)
[2022-11-27] MEDS: NORVASC 5 MG PO SCH (16:16)
[2022-11-27] MEDS: zyPREXA 5MG TABLET PO SCH (22:00)
[2022-11-27] MEDS: Namenda 5 MG PO SCH (22:00)
[2022-11-27] MEDS: ZOCOR 20MG PO SCH (22:00)
[2022-11-27] MEDS: ROCEPHIN 1 Gm-D5w 50 ml Bag** 1 G/50 ML IVPB IV SCH (22:11)
[2022-11-27] MEDS: Zithromax 500 MG/ 250 ML NaCl Premix 500 MG/250 ML IVPB IV SCH (22:44)
[2022-11-28 06:00] LABS: Absolute Neutrophil Ct (ANC) 10.13 x10^3/uL (1.4-6.9); BASOPHIL % 0.2 % (0.0-0.4); Basophil (Absolute #) 0.02 x10^3/uL (0-0.4); Eosinophil % 0.1 % (0.00-5.0); Eosinophil (Absolute #) 0.01 x10^3/uL (0-0.5); Hematocrit 33.2 % (35-47); Hemoglobin 9.9 g/dL (12.0-16.0); IMMATURE GRAN # 0.14 x10^3u/L (0.00-0.03); IMMATURE GRAN % 1.1 % (0.00-0.4); Lymphocyte (Absolute #) 1.12 x10^3/uL (1.0-4.6); Lymphocytes % 9.2 % (24.0-44.0); Mean Cell Volume 94.1 fL (78-100); Mean Corpuscular Hgb Concent. 29.8 g/dL (32-36); Mean Platelet Volume 9.8 fL (7.5-11.0); Monocyte (Absolute #) 0.76 x10^3/uL (0.0-1.3); Monocytes % 6.2 % (0.0-12.0); Neutrophil % 83.2 % (36.0-66.0); Platelet Count 241 x10^3/uL (150-450); Red Blood Count 3.53 x10^6/uL (4.1-5.4); Red Cell Distribution Width 15.8 % (11.5-14.0); White Blood Count 12.2 x10^3/uL (4.0-10.5)
[2022-11-28 06:28] LABS: ANION GAP 12.5 MEQ/L (5-15); Calcium 8.7 mg/dL (8.4-10.2); Creatinine 1 1.82 mg/dL (0.52-1.04); EST GLOMERULAR FILTRATION RATE 28.2 ML/MIN; Potassium 4.6 mmol/L (3.5-5.1)
[2022-11-28] MEDS: DUONEB 0.5-3 MG/3 ml Neb IH SCH ×2 (07:21→20:14)
[2022-11-28] MEDS: Advair Hfa 115/21 Common canister IH SCH ×2 (07:22→20:14)
--- NOTE | 2022-11-28 08:59 | PCM.NOTE ---
Date and Time: 11/28/2259 Subjective Assessment: doing ok - Review of Systems Constitutional: No Fever, No Chills Eyes: No Symptoms Ears, Nose, & Throat: No Symptoms Respiratory: No Cough, No Short Of Breath Cardiac: No Chest Pain, No Edema, No Syncope Abdominal/Gastrointestinal: No Abdominal Pain, No Nausea, No Vomiting, No Diarrhea Genitourinary Symptoms: No Dysuria Musculoskeletal: No Back Pain, No Neck Pain Skin: No Rash Neurological: No Dizziness, No Focal Weakness, No Sensory Changes Psychological: No Symptoms Endocrine: No Symptoms Hematologic/Lymphatic: No Symptoms Immunological/Allergic: No Symptoms Objective Exam General Appearance: no apparent distress, alert Neurologic Exam: alert, oriented x 3, cooperative, normal mood/affect, nml cerebellar function, sensation nml, No motor deficits Skin Exam: normal color, warm, dry Eye Exam: PERRL, EOMI, eyes nml inspection Ears, Nose, Throat Exam: normal ENT inspection, pharynx normal, moist mucous membranes Neck Exam: normal inspection, non-tender, supple, full range of motion Respiratory Exam: normal breath sounds, lungs clear, No respiratory distress Cardiovascular Exam: regular rate/rhythm, normal heart sounds Gastrointestinal/Abdomen Exam: soft, No tenderness, No mass Extremity Exam: normal inspection, normal range of motion Back Exam: normal inspection, normal range of motion, No CVA tenderness, No vertebral tenderness Pelvic Exam: deferred Rectal Exam: deferred OBJECTIVE DATA Vital Signs: Vital Signs - 24 hr Temp Pulse Resp BP Pulse Ox 11/28/22 08:00 97.5 F 61 22 138/72 96 11/28/22 07:21 62 18 95 11/28/22 04:00 97.5 F 59 L 20 128/59 95 11/27/22 23:38 98.0 F 56 L 36 H 133/63 97 11/27/22 19:55 97.5 F 60 22 135/62 98 11/27/22 19:07 63 18 96 11/27/22 16:00 98.6 F 129 H 16 91/55 94 L 11/27/22 11:51 98.2 F 67 16 129/64 99 Pain Assessment - Last Documented Pain Intensity 0 Intake and Output: Intake & Output 11/25/22 11/26/22 11/27/22 11/28/22 11:59 11:59 11:59 11:59 Intake Total 1235 2747 1080 Output Total 450 1050 1100 Balance 785 1697 -20 Weight 85.5 kg 85.7 kg 86 kg Lab Results: Lab Results-Last 24 Hours 11/27/22 11/27/22 11/27/22 Range/Units 11:24 16:22 21:15 WBC (4.0-10.5) x10^3/uL RBC (4.1-5.4) x10^6/uL Hgb (12.0-16.0) g/dL Hct (35-47) % MCV (78-100) fL MCH (26-32) pg MCHC (32-36) g/dL RDW (11.5-14.0) % Plt Count (150-450) x10^3/uL MPV (7.5-11.0) fL Gran % (36.0-66.0) % Immature Gran % (Auto) (0.00-0.4) % Nucleat RBC Rel Count (0.00-0.1) % Eos # (Auto) (0-0.5) x10^3/uL Immature Gran # (Auto) (0.00-0.03) x10^3u/L Absolute Lymphs (auto) (1.0-4.6) x10^3/uL Absolute Monos (auto) (0.0-1.3) x10^3/uL Absolute Nucleated RBC (0.00-0.01) x10^3u/L Lymphocytes % (24.0-44.0) % Monocytes % (0.0-12.0) % Eosinophils % (0.00-5.0) % Basophils % (0.0-0.4) % Absolute Granulocytes (1.4-6.9) x10^3/uL Basophils # (0-0.4) x10^3/uL Sodium (137-145) mmol/L Potassium (3.5-5.1) mmol/L Chloride (98-107) mmol/L Carbon Dioxide (22-30) mmol/L Anion Gap (5-15) MEQ/L BUN (7-17) mg/dL Creatinine (0.52-1.04) mg/dL Estimated GFR ML/MIN Glucose (74-106) mg/dL POC Glucometer 436 H 382 H 335 H (74 to 106) mg/dL Calcium (8.4-10.2) mg/dL 11/28/22 11/28/22 11/28/22 Range/Units 05:15 05:15 07:01 WBC 12.2 H (4.0-10.5) x10^3/uL RBC 3.53 L (4.1-5.4) x10^6/uL Hgb 9.9 L (12.0-16.0) g/dL Hct 33.2 L (35-47) % MCV 94.1 (78-100) fL MCH 28.0 (26-32) pg MCHC 29.8 L (32-36) g/dL RDW 15.8 H (11.5-14.0) % Plt Count 241 (150-450) x10^3/uL MPV 9.8 (7.5-11.0) fL Gran % 83.2 H (36.0-66.0) % Immature Gran % (Auto) 1.1 H (0.00-0.4) % Nucleat RBC Rel Count 0.0 (0.00-0.1) % Eos # (Auto) 0.01 (0-0.5) x10^3/uL Immature Gran # (Auto) 0.14 H (0.00-0.03) x10^3u/L Absolute Lymphs (auto) 1.12 (1.0-4.6) x10^3/uL Absolute Monos (auto) 0.76 (0.0-1.3) x10^3/uL Absolute Nucleated RBC 0.00 (0.00-0.01) x10^3u/L Lymphocytes % 9.2 L (24.0-44.0) % Monocytes % 6.2 (0.0-12.0) % Eosinophils % 0.1 (0.00-5.0) % Basophils % 0.2 (0.0-0.4) % Absolute Granulocytes 10.13 H (1.4-6.9) x10^3/uL Basophils # 0.02 (0-0.4) x10^3/uL Sodium 144 (137-145) mmol/L Potassium 4.6 (3.5-5.1) mmol/L Chloride 111 H (98-107) mmol/L Carbon Dioxide 25 (22-30) mmol/L Anion Gap 12.5 (5-15) MEQ/L BUN 43 H (7-17) mg/dL Creatinine 1.82 H (0.52-1.04) mg/dL Estimated GFR 28.2 ML/MIN Glucose 264 H (74-106) mg/dL POC Glucometer 207 H (74 to 106) mg/dL Calcium 8.7 (8.4-10.2) mg/dL Radiology Exams: Radiology Procedures Category Date Time Status MODIFIED BARIUM SWALLOW (RAD) [MODIFIED BARIUM SWALLOW Exams 11/27/22 10:45 Co mpleted EXAM] Routine Multi-Disciplinary Progress Notes: Multi-Disciplinary Progress Notes 11/28/22 02:00 Respiratory Note by Marcela Villagomez Pt refuses bipap at this time. Patient is on 4L nasal cannula with SpO2 of 93%. Initialized on 11/28/22 02:00 - END OF NOTE 11/27/22 15:28 Mod Barium Swallow Note by Lonny(L#[id number],Merly Modified Barium Swallow Study ST Modified Barium Swallow Study Start: 11/27/22 14:55 Freq: Status: Active Protocol: Document 11/27/22 15:05 BM (Rec: 11/27/22 15:28 [id number]) E-Sign 11/27/22 15:05 BM Modified Barium Swallow Reason for Assessment Primary Diagnosis J18.9 - PNEUMONIA, UNSPECIFIED ORGANISM Treatment Diagnosis #1 R13.12 - DYSPHAGIA, OROPHARYNGEAL PHASE Reason for Assessment PATIENT REFERRED FOR MBS STUDY BY ADMITTING PHYSICIAN DUE TO POSSIBILITY OF ASPIRATION, PMH, AND CURRENT DX OF PNEUMONIA. Onset Date 11/26/22 Date of Evaluation/SOC 11/27/22 Pain Assessment Do you have pain on swallowing No Non-verbal signs & symptoms of pain No Modified Barium Swallow View This evaluation was completed to assess the functioning of the oral and pharyngeal phases of swallowing and to determine if the patient is aspirating or at risk for aspiration. Modified Barium Swallow View Lateral View Consistencies Assessed Barium trials included: Thin Honey Liquid via spoon, Honey Liquid via Spoon,Pudding Liquid via spoon,Pureed Food, Paste on a Cookie Aspiration Risk Aspiration Observed Yes Amount of Aspiration Observed Small Patient considered at risk of aspiration Yes during oral intake Patient is at risk for aspiration Before the swallow Severity of Aspiration Risk Moderate Penetration into Laryngeal Vestibule Yes Penetration occured with Thin Honey Consistency Reason for aspirational risk: PATIENT AT RISK FOR ASPIRATION BEFORE THE SWALLOW DUE TO PREMATURE SPILLAGE INTO VALLECULAE, PHARYNGEAL RECESSES, AND LARYNGEAL VESTIBULE PRIOR TO SWALLOW INITIATION. 8-Point Penetration-Aspiration Scale (Rosenbek) 5.Material enters the airway,contacts Yes the vocal folds and IS NOT ejected from the airway. Consistency Thin Honey Method of presentation Teaspoon Comment: PATIENT WITH TRACE SILENT ASPIRATION PRIOR TO SWALLOW OF THIN HONEY CONSISTENCY BARIUM . Residue/Retention Residue Observed Valleculae Right,Valleculae Left Esophageal Function No Impairment (WFL) Other UNABLE TO FULLY ASSESS ESOPHAGEAL FUNCTION DURING THIS MBS STUDY DUE TO LIMITATION MOVEMENT OF EQUIPMENT UTILIZED. Assessment of Swallow Phases Oral Phase Labial Closure No Impairment (WFL) Bolus Formation Yes Bolus Control Pooling L/R No Impairment (WFL) Bolus Control under Tongue No Impairment (WFL) Bolus Control Scattered Loss No Impairment (WFL) Mastication Effectiveness No Impairment (WFL) A/P Bolus Propulsion No Impairment (WFL) Premature Spillage into: Laryngeal Vestibule,Valleculae A/P Lingual Propulsion Delay No Impairment (WFL) Lingual Movement No Impairment (WFL) Residue Clearing/Sensitivity Mild Impairment Aspiration Yes Swallow Initiation Delay Minimal Impairment Other Oral Phase Observations PATIENT WITH TRACE SILENT ASPIRATION OCCURRING PRIOR TO SWALLOW INITIATION OF THIN HONEY CONSISTENCY BARIUM. ORAL PHASE OF SWALLOW WAS FUNCTIONAL WITH HONEY THICK, PUDDING THICK, PUREED, AND PASTE ON A COOKIE, WITHOUT ASPIRATION. Pharyngeal Phase Base of Tongue Retraction No Impairment (WFL) Epiglottic Coverage No Impairment (WFL) Laryngeal Elevation No Impairment (WFL) Reduced Anterior Laryngeal Movement No Laryngeal Closure Mild Impairment Vallecular Retention Clearing No Impairment (WFL) Pharyn. Wall Residue Clearing No Impairment (WFL) Pyriform Sinus Retention No Impairment (WFL) Aspiration Yes Cricopharyngeal Dysfunction No Cough None Other Pharyngeal Phase Observation PATIENT DEMONSTRATED MILD LARYNGEAL CLOSURE DEFICIT PRIMARILY DUE TO COORDINATION AND TIMING OF SWALLOW. TRACE SILENT ASPIRATION OCCURRED IN ORAL PHASE, PRIOR TO SWALLOW INITIATION. Clinical Interpretation Clinical Interpretation PATIENT WITH MODERATE VÍCTOR- PHARYNGEAL DYSPHAGIA WITH TRACE SILENT ASPIRATION Speech Therapy Teaching Record Teaching Summary Results/Recommendations Learning Preferences Discussion Barriers to Learning Auditory,Age related Readiness for Learning Accepting Teaching Methods Discussion Teaching Recipient Patient,Primary Caregiver Response to Teaching Verbalize understanding ST Recommendations Diet Consistency Soft Comment RECOMMEND SOFT DIET TO MAXIMIZE NUTRITIONAL VALUE OF FOODS EATEN AND DECREASE EFFORTFUL MASTICATION OF REGULAR FOOD ITEMS. Liquid Consistency Honey Comment RECOMMEND CONTINUED USE OF HONEY THICK LIQUIDS. Follow-Up Primary Physician regarding findings/ Yes recommendations Safe Swallow Compensatory Strategies Compensatory Strategies Upright Position for all meals ,Small bites and drinks,Dry swallows,Alternate solids/ liquids,Thicken Liquids (see consistency above) Medication Instructions Per Patient Preference Staff/Family Suggestions Direct supervision/assistance with all meals Additional Comments: PATIENT PLEASANT AND COOPERATIVE THROUGHOUT MBS STUDY. Signatures Speech Therapist Signature DEVEN, MS, CCC/WATCH CASE POLISHER Physician Signature DR Leroy PEREZ, RADIOLOGIST Initialized on 11/27/22 15:28 - END OF NOTE 11/27/22 10:00 (created 11/27/22 12:14) Case Management Note by Jenny Sotelo S/W DAUGHTER- THEY CONTINUE TO PLAN FOR PATIENT TO DC HOME TO HER CARE AT TIME OF DC LONG PATIENT IS ABLE TO AMBULATE ENOUGH TO TRANSFER AT HOME. [facility] BEEN SET UP. PATIENT ALREADY HAS HOME OXYGEN THAT SHE WEARS 2L/NC 01/02. SHE HAS A BIPAP AT HOME WELL. DAUGHTER DECLINES ANY OTHER NEW NEEDS. Initialized on 11/27/22 12:14 - END OF NOTE Assessment/Plan (1) ELYSE (acute kidney injury) Current Visit: Yes Status: Acute Code(s): N17.9 - ACUTE KIDNEY FAILURE, UNSPECIFIED (2) COPD exacerbation Current Visit: Yes Status: Acute Code(s): J44.1 - CHRONIC OBSTRUCTIVE PULMONARY DISEASE W (ACUTE) EXACERBATION (3) Pneumonia Current Visit: Yes Status: Acute Code(s): J18.9 - PNEUMONIA, UNSPECIFIED ORGANISM
[2022-11-28] MEDS: Pepcid 20 MG VIAL IV SCH ×2 (09:28→22:02)
[2022-11-28] MEDS: HUMALOG SQ PRN ×2 (09:30→22:17)
[2022-11-28] MEDS: NORVASC 5 MG PO SCH (11:03)
[2022-11-28] MEDS: ELIQUIS 2.5 MG TABLET PO SCH ×2 (11:03→22:02)
[2022-11-28] MEDS: Lexapro PO SCH (11:03)
[2022-11-28] MEDS: Cozaar 50 MG PO SCH (11:03)
[2022-11-28] MEDS: Klor Con PO SCH ×2 (11:03→22:02)
[2022-11-28] MEDS: Protonix 40MG Tablet PO SCH (11:04)
[2022-11-28] MEDS: Sodium Chloride 0.9% 1000 ML 1,000 ML IV SCH (15:05)
[2022-11-28] MEDS: ROCEPHIN 1 Gm-D5w 50 ml Bag** 1 G/50 ML IVPB IV SCH (22:01)
[2022-11-28] MEDS: zyPREXA 5MG TABLET PO SCH (22:01)
[2022-11-28] MEDS: Namenda 5 MG PO SCH (22:02)
[2022-11-28] MEDS: Zithromax 500 MG/ 250 ML NaCl Premix 500 MG/250 ML IVPB IV SCH (22:02)
[2022-11-28] MEDS: ZOCOR 20MG PO SCH (22:02)
[2022-11-29 05:53] LABS: Hematocrit 33.2 % (35-47); Hemoglobin 9.9 g/dL (12.0-16.0); Mean Cell Volume 93.8 fL (78-100); Mean Corpuscular Hgb Concent. 29.8 g/dL (32-36); Mean Platelet Volume 9.9 fL (7.5-11.0); Platelet Count 235 x10^3/uL (150-450); Red Blood Count 3.54 x10^6/uL (4.1-5.4); Red Cell Distribution Width 15.8 % (11.5-14.0); White Blood Count 9.1 x10^3/uL (4.0-10.5)
[2022-11-29 06:05] LABS: BILIRUBIN,TOTAL 0.3 mg/dL (0.2-1.3); Calcium 8.3 mg/dL (8.4-10.2); Creatinine 1 1.63 mg/dL (0.52-1.04); Potassium 4.3 mmol/L (3.5-5.1); Total Protein 6.4 g/dL (6.3-8.2)
[2022-11-29] MEDS: DUONEB 0.5-3 MG/3 ml Neb IH SCH ×2 (07:29→19:46)
[2022-11-29] MEDS: Advair Hfa 115/21 Common canister IH SCH ×2 (07:33→19:46)
[2022-11-29] MEDS: Sodium Chloride 0.9% 1000 ML 1,000 ML IV SCH ×3 (08:20→13:02)
--- NOTE | 2022-11-29 08:31 | PCM.NOTE ---
Date and Time: 11/29/22829 Subjective Assessment: doing ok - Review of Systems Constitutional: No Fever, No Chills Eyes: No Symptoms Ears, Nose, & Throat: No Symptoms Respiratory: Short Of Breath, No Cough Cardiac: No Chest Pain, No Edema, No Syncope Abdominal/Gastrointestinal: No Abdominal Pain, No Nausea, No Vomiting, No Diarrhea Genitourinary Symptoms: No Dysuria Musculoskeletal: No Back Pain, No Neck Pain Skin: No Rash Neurological: No Dizziness, No Focal Weakness, No Sensory Changes Psychological: No Symptoms Endocrine: No Symptoms Hematologic/Lymphatic: No Symptoms Immunological/Allergic: No Symptoms Objective Exam General Appearance: no apparent distress, alert Neurologic Exam: alert, oriented x 3, cooperative, normal mood/affect, nml cerebellar function, sensation nml, No motor deficits Skin Exam: normal color, warm, dry Eye Exam: PERRL, EOMI, eyes nml inspection Ears, Nose, Throat Exam: normal ENT inspection, pharynx normal, moist mucous membranes Neck Exam: normal inspection, non-tender, supple, full range of motion Respiratory Exam: crackles/rales, rhonchi, No respiratory distress Cardiovascular Exam: regular rate/rhythm, normal heart sounds Gastrointestinal/Abdomen Exam: soft, No tenderness, No mass Extremity Exam: normal inspection, normal range of motion Back Exam: normal inspection, normal range of motion, No CVA tenderness, No vertebral tenderness Pelvic Exam: deferred Rectal Exam: deferred OBJECTIVE DATA Vital Signs: Vital Signs - 24 hr Temp Pulse Resp BP BP Pulse Ox 11/29/22 07:34 72 22 99 11/29/22 07:16 98.0 F 71 23 144/89 100 11/29/22 03:56 97.3 F 69 20 140/74 95 11/29/22 00:00 97.1 F 63 20 139/63 99 11/28/22 20:15 60 24 92 L 11/28/22 20:00 97.7 F 60 26 H 121/60 96 11/28/22 16:00 97.2 F 59 L 18 137/62 96 11/28/22 12:28 97.3 F 60 19 138/72 100 11/28/22 10:59 60 144/68 11/28/22 09:07 94 L Pain Assessment - Last Documented Pain Intensity 0 Intake and Output: Intake & Output 11/26/22 11/27/22 11/28/22 05/21/23 11:59 11:59 11:59 11:59 Intake Total 1235 2747 1200 2720 Output Total 450 1050 1100 1950 Balance 785 1697 100 770 Weight 85.5 kg 85.7 kg 86 kg 86.1 kg Lab Results: Lab Results-Last 24 Hours 11/28/22 11/28/22 11/28/22 Range/Units 05:15 12:03 17:19 WBC (4.0-10.5) x10^3/uL RBC (4.1-5.4) x10^6/uL Hgb (12.0-16.0) g/dL Hct (35-47) % MCV (78-100) fL MCH (26-32) pg MCHC (32-36) g/dL RDW (11.5-14.0) % Plt Count (150-450) x10^3/uL MPV (7.5-11.0) fL Sodium (137-145) mmol/L Potassium (3.5-5.1) mmol/L Chloride (98-107) mmol/L Carbon Dioxide (22-30) mmol/L Anion Gap (5-15) MEQ/L BUN (7-17) mg/dL Creatinine (0.52-1.04) mg/dL Estimated GFR ML/MIN Glucose (74-106) mg/dL POC Glucometer 205 H 188 H (74 to 106) mg/dL Hemoglobin A1c 6.73 H (4.5-6.0) % Calcium (8.4-10.2) mg/dL Total Bilirubin (0.2-1.3) mg/dL AST (14-36) U/L ALT (0-35) U/L Alkaline Phosphatase (38-126) U/L Serum Total Protein (6.3-8.2) g/dL Albumin (3.5-5.0) g/dL 11/28/22 11/29/22 11/29/22 Range/Units :23 05:08 05:08 WBC 9.1 (4.0-10.5) x10^3/uL RBC 3.54 L (4.1-5.4) x10^6/uL Hgb 9.9 L (12.0-16.0) g/dL Hct 33.2 L (35-47) % MCV 93.8 (78-100) fL MCH 28.0 (26-32) pg MCHC 29.8 L (32-36) g/dL RDW 15.8 H (11.5-14.0) % Plt Count 235 (150-450) x10^3/uL MPV 9.9 (7.5-11.0) fL Sodium 145 (137-145) mmol/L Potassium 4.3 (3.5-5.1) mmol/L Chloride 111 H (98-107) mmol/L Carbon Dioxide 27 (22-30) mmol/L Anion Gap 12.0 (5-15) MEQ/L BUN 36 H (7-17) mg/dL Creatinine 1.63 H (0.52-1.04) mg/dL Estimated GFR 32.0 ML/MIN Glucose 149 H (74-106) mg/dL POC Glucometer 215 H (74 to 106) mg/dL Hemoglobin A1c (4.5-6.0) % Calcium 8.3 L (8.4-10.2) mg/dL Total Bilirubin 0.30 (0.2-1.3) mg/dL AST 19 (14-36) U/L ALT 23 (0-35) U/L Alkaline Phosphatase 82 (38-126) U/L Serum Total Protein 6.4 (6.3-8.2) g/dL Albumin 3.0 L (3.5-5.0) g/dL / Range/Units 06:53 WBC (4.0-10.5) x10^3/uL RBC (4.1-5.4) x10^6/uL Hgb (12.0-16.0) g/dL Hct (35-47) % MCV (78-100) fL MCH (26-32) pg MCHC (32-36) g/dL RDW (11.5-14.0) % Plt Count (150-450) x10^3/uL MPV (7.5-11.0) fL Sodium (137-145) mmol/L Potassium (3.5-5.1) mmol/L Chloride (98-107) mmol/L Carbon Dioxide (22-30) mmol/L Anion Gap (5-15) MEQ/L BUN (7-17) mg/dL Creatinine (0.52-1.04) mg/dL Estimated GFR ML/MIN Glucose (74-106) mg/dL POC Glucometer 139 H (74 to 106) mg/dL Hemoglobin A1c (4.5-6.0) % Calcium (8.4-10.2) mg/dL Total Bilirubin (0.2-1.3) mg/dL AST (14-36) U/L ALT (0-35) U/L Alkaline Phosphatase (38-126) U/L Serum Total Protein (6.3-8.2) g/dL Albumin (3.5-5.0) g/dL Radiology Exams: Radiology Procedures Category Date Time Status MODIFIED BARIUM SWALLOW (RAD) [MODIFIED BARIUM SWALLOW Exams 11/27/22 10:45 Completed EXAM] Routine Assessment/Plan (1) COPD exacerbation Current Visit: Yes Status: Acute Assessment & Plan: Chief Complaint Diagnosis ELYSE, PNEUMONIA, COPD EXACB Allergies Allergy/AdvReac Type Severity Reaction Status Date / Time carvedilol Allergy Verified 05/11/22 21:53 Vital Signs (Last 24 hours) Temp Pulse Resp BP BP Pulse Ox 11/29/22 07:34 72 22 99 11/29/22 07:16 98.0 F 71 23 144/89 100 11/29/22 03:56 97.3 F 69 20 140/74 95 11/29/22 00:00 97.1 F 63 20 139/63 99 11/28/22 20:15 60 24 92 L 11/28/22 20:00 97.7 F 60 26 H 121/60 96 11/28/22 16:00 97.2 F 59 L 18 137/62 96 11/28/22 12:28 97.3 F 60 19 138/72 100 11/28/22 10:59 60 144/68 11/28/22 09:07 94 L Home Medications Medication Instructions Recorded Confirmed Last Taken Type Guaifenesin 600 mg ER [Mucinex 600 mg PO BID 11/26/22 11/26/22 11/26/22 History 600MG ER Tabs] Current Medications Generic Name Dose Route Start Last Admin Trade Name Freq PRN Reason Stop Dose Admin Acetaminophen 650 mg 11/25/22 22:07 Acetaminophen 325 Mg Tablet PO 12/25/22 22:06 Q4H PRN PRN PAIN AND/OR FEVER Acetaminophen/Codeine Phosphate 1 tab 11/25/22 23:38 11/27/22 12:12 Codeine Phosphate/Apap #3 PO 12/25/22 23:37 1 tab Q6H PRN PRN Administration PAIN Albuterol/Ipratropium 3 ml 11/26/22 19:00 11/29/22 07:29 Ipratropium/Albuterol Sulfate 3 Ml Ampul.Neb IH 12/26/22 18:59 3 ml BIDRT ROSARIO Administration Amlodipine Besylate 5 mg 11/26/22 10:00 11/28/22 11:03 Amlodipine Besylate 5 Mg Tablet PO 12/26/22 09:59 5 mg DAILY ROSARIO Administration Apixaban 2.5 mg 11/25/22 23:40 11/28/22 22:02 Apixaban 2.5 Mg Tablet PO 12/25/22 23:39 2.5 mg BID ROSARIO Administration Escitalopram Oxalate 10 mg 11/26/22 10:00 11/28/22 11:03 Escitalopram Oxalate 10 Mg Tablet PO 12/26/22 09:59 10 mg DAILY ROSARIO Administration Famotidine 20 mg 11/25/22 22:07 11/28/22 22:02 Famotidine 20 Mg/1 Vial IV 12/25/22 22:06 20 mg Q12HT ROSARIO Administration Guaifenesin/Dextromethorphan 5 ml 11/26/22 19:43 11/27/22 22:00 Guaifenesin/D-Methorphan Hb 118 Ml Syrup PO 12/26/22 19:42 5 ml Q6H PRN PRN Administration COUGH Sodium Chloride 1,000 mls @ 50 mls/hr 11/25/22 21:00 11/29/22 08:21 Sodium Chloride 0.9% 1000 Ml IV 12/25/22 20:59 Not Given .Q20H ROSARIO Azithromycin 500 mg in 250 mls @ 250 mls/hr 11/26/22 22:00 11/28/22 22:02 Zithromax 500 Mg/ 250 Ml Nacl Premix IV 12/26/22 21:59 250 mls/hr Q24H22 ROSARIO Administration Ceftriaxone Sodium/Dextrose 1 g in 50 mls @ 100 mls/hr 11/26/22 22:00 11/28/22 22:01 Rocephin 1 Gm-D5w 50 Ml Bag IV 11/29/22 21:59 100 mls/hr Q24H22 ROSARIO Administration Insulin Human Lispro 0 unit 11/25/22 22:07 11/28/22 22:17 Insulin Lispro 1 Unit SQ 12/25/22 22:06 2 unit UD PRN Administration HYPERGLYCEMIA Losartan Potassium 100 mg 11/26/22 10:00 11/28/22 11:03 Losartan Potassium 50 Mg Tablet PO 12/26/22 09:59 100 mg DAILY ROSARIO Administration Memantine 5 mg 11/25/22 23:34 11/28/22 22:02 Memantine Hcl 5 Mg Tablet PO 12/25/22 23:33 5 mg HS ROSARIO Administration Olanzapine 10 mg 11/25/22 23:36 11/28/22 22:01 Olanzapine 5 Mg Tab PO 12/25/22 23:35 10 mg HS ROSARIO Administration Ondansetron HCl 4 mg 11/25/22 22:07 11/27/22 09:34 Ondansetron Hcl 4 Mg/2 Ml Vial IV 12/25/22 22:06 4 mg Q6H PRN PRN Administration NAUSEA/VOMITING Pantoprazole Sodium 40 mg 11/26/22 10:00 11/28/22 11:04 Protonix (Pantoprazole) 40 Mg Tablet PO 12/26/22 09:59 40 mg DAILY ROSARIO Administration Potassium Chloride 10 meq 11/26/22 10:00 11/28/22 22:02 Potassium Chloride Tab 10 Meq Tab PO 12/26/22 09:59 10 meq BID ROSARIO Administration Fluticasone/Salmeterol 2 puff 11/26/22 07:00 11/29/22 07:33 Fluticasone/Salmeterol 115/21 - 120 Puff Common Canister IH 12/26/22 06:59 2 puff BIDRT ROSARIO Administration Simvastatin 40 mg 11/26/22 22:00 11/28/22 22:02 Simvastatin 20 Mg Tablet PO 12/26/22 21:59 40 mg HS ROSARIO Administration Discontinued Medications Generic Name Dose Route Start Last Admin Trade Name Freq PRN Reason Stop Dose Admin Albuterol/Ipratropium 3 ml 11/25/22 20:55 11/25/22 21:40 Ipratropium/Albuterol Sulfate 3 Ml Ampul.Neb IH 11/25/22 20:56 3 ml STAT ONE Administration Albuterol/Ipratropium Confirm 11/25/22 21:06 Ipratropium/Albuterol Sulfate 3 Ml Ampul.Neb Administered 11/25/22 21:07 Dose 3 ml IH .STK-MED ONE Albuterol/Ipratropium 3 ml 11/26/22 01:00 11/26/22 07:01 Ipratropium/Albuterol Sulfate 3 Ml Ampul.Neb IH 12/26/22 00:59 3 ml Q6HRT ROSARIO Administration Albuterol/Ipratropium Confirm 11/26/22 06:50 Ipratropium/Albuterol Sulfate 3 Ml Ampul.Neb Administered 11/26/22 06:51 Dose 3 ml IH .STK-MED ONE Atorvastatin Calcium 40 mg 11/25/22 23:43 11/26/22 00:10 Atorvastatin Calcium 40 Mg Tablet PO 12/25/22 23:42 40 mg HS ROSARIO Administration Methylprednisolone Sodium 0 mg 11/25/22 20:55 11/25/22 21:42 Succinate 125 mg/ Sterile IV 11/25/22 20:56 125 mg Water 2 ml STAT ONE Administration Methylprednisolone Sodium 0 mg 11/26/22 00:00 11/26/22 05:45 Succinate 60 mg/ Sterile Water IV 12/26/22 00:00 60 mg 2 ml Q6HT ROSARIO Administration Methylprednisolone Sodium 0 mg 11/26/22 12:00 11/27/22 05:44 Succinate 60 mg/ Sterile Water IV 12/26/22 11:59 60 mg 1.5 ml Q6HT ROSARIO Administration Azithromycin 500 mg in 250 mls @ 250 mls/hr 11/25/22 20:55 11/25/22 22:58 Zithromax 500 Mg/ 250 Ml Nacl Premix IV 11/25/22 21:54 250 mls/hr STAT STA Administration Ceftriaxone Sodium/Dextrose 1 g in 50 mls @ 100 mls/hr 11/25/22 20:55 11/25/22 21:55 Rocephin 1 Gm-D5w 50 Ml Bag IV 11/25/22 21:24 100 ml/hr STAT STA 100 mls/hr Administration Ceftriaxone Sodium/Dextrose Confirm 11/25/22 21:38 Rocephin 1 Gm-D5w 50 Ml Bag Administered 05/17/23 21:39 Dose 1 g in 50 mls @ ud IV .STK-MED ONE Methylprednisolone Sodium Succinate Confirm 11/25/22 21:38 Methylprednis Sod Succ 125 Mg/2 Ml Vial Administered 11/25/22 21:39 Dose 125 mg .ROUTE .STK-MED ONE Methylprednisolone Sodium Succinate Confirm 11/25/22 23:55 Methylprednis Sod Succ 125 Mg/2 Ml Vial Administered 11/25/22 23:56 Dose 125 mg .ROUTE .STK-MED ONE Methylprednisolone Sodium Succinate Confirm 11/26/22 05:16 Methylprednis Sod Succ 125 Mg/2 Ml Vial Administered 11/26/22 05:17 Dose 125 mg .ROUTE .STK-MED ONE Methylprednisolone Sodium Succinate Confirm 11/27/22 05:29 Methylprednisolone Sod Suc 40m 40 Mg/Ml Vial Administered 11/27/22 05:30 Dose 40 mg .ROUTE .STK-MED ONE Non-Formulary Medication 100 mg 11/26/22 10:00 11/26/22 12:00 Losartan Potassium [Cozaar] PO 12/26/22 09:59 Not Given DAILY ROSARIO Potassium Chloride 20 meq 11/25/22 23:37 11/26/22 00:10 Potassium Chloride Tab 10 Meq Tab PO 12/25/22 23:36 20 meq BID ROSARIO Administration Sterile Water Confirm 11/25/22 21:38 Water For Injection,Sterile 10 Ml Vial Administered 11/25/22 21:39 Dose 10 ml IJ .STK-MED ONE Sterile Water Confirm 11/26/22 05:16 Water For Injection,Sterile 10 Ml Vial Administered 11/26/22 05:17 Dose 10 ml IJ .STK-MED ONE Sterile Water Confirm 11/27/22 05:29 Water For Injection,Sterile 10 Ml Vial Administered 11/27/22 05:30 Dose 10 ml IJ .STK-MED ONE Sterile Water Confirm 11/27/22 05:29 Water For Injection,Sterile 10 Ml Vial Administered 11/27/22 05:30 Dose 10 ml IJ .STK-MED ONE Intake & Output (Last 24 hours) 11/26/22 11/27/22 11/28/22 11/29/22 11:59 11:59 11:59 11:59 Intake Total 1235 2747 1200 2720 Output Total 450 1050 1100 1950 Balance 785 1697 100 770 Weight 85.5 kg 85.7 kg 86 kg 86.1 kg Microbiology Results (Last 24 hours) 11/26/22 00:56 Urine, Void Urine Culture - Final Escherichia Coli Laboratory Results (Last 24 hours) 11/29/22 11/29/22 11/29/22 06:53 05:08 05:08 WBC 9.1 RBC 3.54 L Hgb 9.9 L Hct 33.2 L MCV 93.8 MCH 28.0 MCHC 29.8 L RDW 15.8 H Plt Count 235 MPV 9.9 Sodium 145 Potassium 4.3 Chloride 111 H Carbon Dioxide 27 Anion Gap 12.0 BUN 36 H Creatinine 1.63 H Estimated GFR 32.0 Glucose 149 H POC Glucometer 139 H Hemoglobin A1c Calcium 8.3 L Total Bilirubin 0.30 AST 19 ALT 23 Alkaline Phosphatase 82 Serum Total Protein 6.4 Albumin 3.0 L 11/28/22 11/28/22 11/28/22 21:23 17:19 12:03 WBC RBC Hgb Hct MCV MCH MCHC RDW Plt Count MPV Sodium Potassium Chloride Carbon Dioxide Anion Gap BUN Creatinine Estimated GFR Glucose POC Glucometer 215 H 188 H 205 H Hemoglobin A1c Calcium Total Bilirubin AST ALT Alkaline Phosphatase Serum Total Protein Albumin 11/28/22 05:15 WBC RBC Hgb Hct MCV MCH MCHC RDW Plt Count MPV Sodium Potassium Chloride Carbon Dioxide Anion Gap BUN Creatinine Estimated GFR Glucose POC Glucometer Hemoglobin A1c 6.73 H Calcium Total Bilirubin AST ALT Alkaline Phosphatase Serum Total Protein Albumin Orders (Last 24 hours) Category Date Time Status CBC AM.LAB Lab 11/29/22 05:08 Completed CMP AM.LAB Lab 11/29/22 05:08 Completed POCT GLUCOSE Stat Lab 11/28/22 12:03 Completed POCT GLUCOSE Stat Lab 11/28/22 17:19 Completed POCT GLUCOSE Stat Lab 11/28/22 21:23 Completed POCT GLUCOSE Stat Lab 11/29/22 06:53 Completed Code(s): J44.1 - CHRONIC OBSTRUCTIVE PULMONARY DISEASE W (ACUTE) EXACERBATION (2) ELYSE (acute kidney injury) Current Visit: Yes Status: Resolved Code(s): N17.9 - ACUTE KIDNEY FAILURE, UNSPECIFIED (3) Pneumonia Current Visit: Yes Status: Acute Code(s): J18.9 - PNEUMONIA, UNSPECIFIED ORGANISM
[2022-11-29] MEDS: Protonix 40MG Tablet PO SCH (10:45)
[2022-11-29] MEDS: Cozaar 50 MG PO SCH (10:45)
[2022-11-29] MEDS: Pepcid 20 MG VIAL IV SCH ×2 (10:45→21:05)
[2022-11-29] MEDS: Lexapro PO SCH (10:45)
[2022-11-29] MEDS: ELIQUIS 2.5 MG TABLET PO SCH ×2 (10:45→21:05)
[2022-11-29] MEDS: Klor Con PO SCH ×2 (10:45→21:04)
[2022-11-29] MEDS: NORVASC 5 MG PO SCH (10:47)
[2022-11-29] MEDS: ROCEPHIN 1 Gm-D5w 50 ml Bag** 1 G/50 ML IVPB IV SCH (21:04)
[2022-11-29] MEDS: zyPREXA 5MG TABLET PO SCH (21:04)
[2022-11-29] MEDS: Zithromax 500 MG/ 250 ML NaCl Premix 500 MG/250 ML IVPB IV SCH (21:05)
[2022-11-29] MEDS: ZOCOR 20MG PO SCH (21:05)
[2022-11-29] MEDS: Namenda 5 MG PO SCH (21:05)
[2022-11-29] MEDS: HUMALOG SQ PRN (21:43)
[2022-11-30] MEDS: Advair Hfa 115/21 Common canister IH SCH ×2 (07:07→18:49)
[2022-11-30] MEDS: DUONEB 0.5-3 MG/3 ml Neb IH SCH ×2 (07:07→18:39)
--- NOTE | 2022-11-30 07:58 | PCM.NOTE ---
Date and Time: 11/30/22 0752 Subjective Assessment: patient has no complaints, states she feels well. she is on 2L nasal cannula at this time, she is in no distress Objective Exam General Appearance: no apparent distress Neurologic Exam: alert, cooperative Respiratory Exam: rhonchi, No crackles/rales, No wheezing Cardiovascular Exam: regular rate/rhythm, normal heart sounds Gastrointestinal/Abdomen Exam: soft, No tenderness, No mass OBJECTIVE DATA Vital Signs: Vital Signs - 24 hr Temp Pulse Resp BP BP Pulse Ox 11/30/22 07:44 97.8 F 63 16 168/87 99 11/30/22 07:13 60 23 97 11/30/22 04:00 97.7 F 61 20 145/69 99 11/30/22 00:00 96.9 F 59 L 20 139/63 98 11/29/22 20:00 97.1 F 60 30 H 136/77 97 11/29/22 19:47 60 20 97 11/29/22 16:00 97.5 F 57 L 20 146/74 97 11/29/22 12:00 98.0 F 71 23 144/89 100 Pain Assessment - Last Documented Pain Intensity 0 Intake and Output: Intake & Output 11/27/22 11/28/22 11/29/22 11/30/22 11:59 11:59 11:59 11:59 Intake Total 2747 1200 2960 2557 Output Total 1050 1100 2950 2250 Balance 1697 100 10 307 Weight 85.7 kg 86 kg 86.1 kg 85.8 kg Lab Results: Lab Results-Last 24 Hours 11/29/22 11/29/22 11/29/22 Range/Units 11:06 15:23 21:32 POC Glucometer 169 H 180 H 225 H (74 to 106) mg/dL 11/30/22 Range/Units 07:23 POC Glucometer 134 H (74 to 106) mg/dL Assessment/Plan (1) Pneumonia Current Visit: Yes Status: Acute Assessment & Plan: much improved, back to usual home oxygen flow. will d/c miller and ambulate, home if she is safe to ambulate and daughter feels she can handle her. she has been on rocephin/zithromax Code(s): J18.9 - PNEUMONIA, UNSPECIFIED ORGANISM (2) COPD exacerbation Current Visit: Yes Status: Acute Code(s): J44.1 - CHRONIC OBSTRUCTIVE PULMONARY DISEASE W (ACUTE) EXACERBATION (3) ELYSE (acute kidney injury) Current Visit: Yes Status: Resolved Assessment & Plan: gfr 32, improved since admission. this is consistent with her historical baseline. Code(s): N17.9 - ACUTE KIDNEY FAILURE, UNSPECIFIED
[2022-11-30] MEDS: Protonix 40MG Tablet PO SCH (09:00)
[2022-11-30] MEDS: Cozaar 50 MG PO SCH (09:00)
[2022-11-30] MEDS: ELIQUIS 2.5 MG TABLET PO SCH ×2 (09:00→21:43)
[2022-11-30] MEDS: Lexapro PO SCH (09:00)
[2022-11-30] MEDS: Pepcid 20 MG VIAL IV SCH ×2 (09:00→21:43)
[2022-11-30] MEDS: Klor Con PO SCH ×2 (09:00→21:43)
[2022-11-30] MEDS: NORVASC 5 MG PO SCH (09:00)
[2022-11-30] MEDS ORDERED: PROVENTIL 2.5 MG/3 ML NEB IH PRN (14:29)
[2022-11-30] MEDS: Tylenol #3 Tablet PO PRN (21:43)
[2022-11-30] MEDS: Namenda 5 MG PO SCH (21:43)
[2022-11-30] MEDS: ZOCOR 20MG PO SCH (21:43)
[2022-11-30] MEDS: zyPREXA 5MG TABLET PO SCH (21:44)
[2022-11-30] MEDS: Zithromax 500 MG/ 250 ML NaCl Premix 500 MG/250 ML IVPB IV SCH (21:44)
[2022-11-30] MEDS: ROCEPHIN 1 Gm-D5w 50 ml Bag** 1 G/50 ML IVPB IV SCH (22:56)
[2022-12-01 04:59] LABS: Absolute Neutrophil Ct (ANC) 6.38 x10^3/uL (1.4-6.9); BASOPHIL % 0.6 % (0.0-0.4); Basophil (Absolute #) 0.06 x10^3/uL (0-0.4); Eosinophil % 5.2 % (0.00-5.0); Eosinophil (Absolute #) 0.49 x10^3/uL (0-0.5); Hematocrit 33.5 % (35-47); Hemoglobin 10.3 g/dL (12.0-16.0); IMMATURE GRAN % 2.1 % (0.00-0.4); Lymphocyte (Absolute #) 1.47 x10^3/uL (1.0-4.6); Lymphocytes % 15.6 % (24.0-44.0); Mean Cell Volume 91.3 fL (78-100); Mean Corpuscular Hemoglobin 28.1 pg (26-32); Mean Corpuscular Hgb Concent. 30.7 g/dL (32-36); Mean Platelet Volume 9.7 fL (7.5-11.0); Monocyte (Absolute #) 0.81 x10^3/uL (0.0-1.3); Monocytes % 8.6 % (0.0-12.0); Neutrophil % 67.9 % (36.0-66.0); Platelet Count 211 x10^3/uL (150-450); Red Blood Count 3.67 x10^6/uL (4.1-5.4); Red Cell Distribution Width 15.3 % (11.5-14.0); White Blood Count 9.4 x10^3/uL (4.0-10.5)
[2022-12-01 05:34] LABS: ANION GAP 13.2 MEQ/L (5-15); Calcium 8.5 mg/dL (8.4-10.2); Creatinine 1 1.46 mg/dL (0.52-1.04); EST GLOMERULAR FILTRATION RATE 36.4 ML/MIN; Potassium 3.9 mmol/L (3.5-5.1)
[2022-12-01] MEDS: DUONEB 0.5-3 MG/3 ml Neb IH SCH (05:49)
[2022-12-01 05:54] VITALS: PULSE 60
[2022-12-01 07:24] VITALS: BP 133/65
--- NOTE | 2022-12-01 09:15 | PCM.DS ---
Discharge Summary Date of Admission: 11/26/22 07:58 Admitting Physician: PORTIA AVALOS MD Primary Care Provider: JANNETTE YADAV LORI Allergies Allergies carvedilol Allergy (Verified 05/11/22 21:53) Hospital Summary - Hospital Course Hospital Course: patient admitted with pneumonia, hx copd and chronic oxygen dependance. she is doing well on home oxygen flow and appears back to baseline. cough is improved. she had a speech eval with [facility] and recommendations were noted due to risk of aspiration. - Vitals & Intake/Output Vital Signs: Vital Signs Temperature 97.5 F 12/01/22 07:21 Pulse Rate 60 12/01/22 07:21 Respiratory Rate 18 12/01/22 07:21 Blood Pressure 133/65 12/01/22 07:21 O2 Sat by Pulse Oximetry 97 12/01/22 07:21 Intake & Output: Intake & Output 11/28/22 11/29/22 11/30/22 12/01/22 11:59 11:59 11:59 11:59 Intake Total 1200 2960 3037 960 Output Total 1100 2950 3450 900 Balance 100 10 -413 60 Weight 86 kg 86.1 kg 85.8 kg - Lab Result Diagrams: 12/01/22 04:20 12/01/22 04:20 Lab Results-Last 24 Hrs: Lab Results-Last 24 Hours 11/30/22 11/30/22 11/30/22 Range/Units 11:18 16:06 21:29 WBC (4.0-10.5) x10^3/uL RBC (4.1-5.4) x10^6/uL Hgb (12.0-16.0) g/dL Hct (35-47) % MCV (78-100) fL MCH (26-32) pg MCHC (32-36) g/dL RDW (11.5-14.0) % Plt Count (150-450) x10^3/uL MPV (7.5-11.0) fL Gran % (36.0-66.0) % Immature Gran % (Auto) (0.00-0.4) % Nucleat RBC Rel Count (0.00-0.1) % Eos # (Auto) (0-0.5) x10^3/uL Immature Gran # (Auto) (0.00-0.03) x10^3u/L Absolute Lymphs (auto) (1.0-4.6) x10^3/uL Absolute Monos (auto) (0.0-1.3) x10^3/uL Absolute Nucleated RBC (0.00-0.01) x10^3u/L Lymphocytes % (24.0-44.0) % Monocytes % (0.0-12.0) % Eosinophils % (0.00-5.0) % Basophils % (0.0-0.4) % Absolute Granulocytes (1.4-6.9) x10^3/uL Basophils # (0-0.4) x10^3/uL Sodium (137-145) mmol/L Potassium (3.5-5.1) mmol/L Chloride (98-107) mmol/L Carbon Dioxide (22-30) mmol/L Anion Gap (5-15) MEQ/L BUN (7-17) mg/dL Creatinine (0.52-1.04) mg/dL Estimated GFR ML/MIN Glucose (74-106) mg/dL POC Glucometer 165 H 138 H 166 H (74 to 106) mg/dL Calcium (8.4-10.2) mg/dL 12/01/22 12/01/22 12/01/22 Range/Units 04:20 04:20 06:54 WBC 9.4 (4.0-10.5) x10^3/uL RBC 3.67 L (4.1-5.4) x10^6/uL Hgb 10.3 L (12.0-16.0) g/dL Hct 33.5 L (35-47) % MCV 91.3 (78-100) fL MCH 28.1 (26-32) pg MCHC 30.7 L (32-36) g/dL RDW 15.3 H (11.5-14.0) % Plt Count 211 (150-450) x10^3/uL MPV 9.7 (7.5-11.0) fL Gran % 67.9 H (36.0-66.0) % Immature Gran % (Auto) 2.1 H (0.00-0.4) % Nucleat RBC Rel Count 0.0 (0.00-0.1) % Eos # (Auto) 0.49 (0-0.5) x10^3/uL Immature Gran # (Auto) 0.20 H (0.00-0.03) x10^3u/L Absolute Lymphs (auto) 1.47 (1.0-4.6) x10^3/uL Absolute Monos (auto) 0.81 (0.0-1.3) x10^3/uL Absolute Nucleated RBC 0.00 (0.00-0.01) x10^3u/L Lymphocytes % 15.6 L (24.0-44.0) % Monocytes % 8.6 (0.0-12.0) % Eosinophils % 5.2 H (0.00-5.0) % Basophils % 0.6 (0.0-0.4) % Absolute Granulocytes 6.38 (1.4-6.9) x10^3/uL Basophils # 0.06 (0-0.4) x10^3/uL Sodium 144 (137-145) mmol/L Potassium 3.9 (3.5-5.1) mmol/L Chloride 105 (98-107) mmol/L Carbon Dioxide 29 (22-30) mmol/L Anion Gap 13.2 (5-15) MEQ/L BUN 27 H (7-17) mg/dL Creatinine 1.46 H (0.52-1.04) mg/dL Estimated GFR 36.4 ML/MIN Glucose 216 H (74-106) mg/dL POC Glucometer 172 H (74 to 106) mg/dL Calcium 8.5 (8.4-10.2) mg/dL Micro Results-Entire Visit: Microbiology 11/26/22 00:56 Urine Culture - Final Urine, Void Escherichia Coli Accuchecks Date 12/01/22 Date 11/30/22 Date 11/30/22 Date 11/30/22 Time 07:21 Time 16:12 Time 11:25 - Procedures and Test Procedures and Tests throughout Hospitalization: Therapy Orders & Screens 11/25/22 21:56 Respiratory Therapy Assessment DAILY Comment: 11/26/22 01:18 BiPap/CPAP ROUTINE Comment: Diagnosis: ELYSE, PNEUMONIA, COPD EXACB Oxygen Nasal Cannula 4 lpm Comment: Diagnosis: ELYSE, PNEUMONIA, COPD EXACB 11/26/22 01:19 Respiratory MDI BID Comment: Diagnosis: ELYSE, PNEUMONIA, COPD EXACB 11/26/22 19:45 Speech Therapy Eval & Treat [ST Eval & Treat (MD Order)] .as ordered Comment: Physician Instructions: Reason For Exam: potential for aspiration Evaluate: Yes Treat: Yes Reason for Eval: cough present after drinking thickened liquids Diagnosis: ELYSE, PNEUMONIA, COPD EXACB 11/30/22 07:55 PT Eval & Treat ( Order) ONCE Reason for Eval:: ambulate patient, safe to discharge Diagnosis: ELYSE, PNEUMONIA, COPD EXACB Discharge Exam General Appearance: no apparent distress Neurologic Exam: alert, cooperative Respiratory Exam: lungs clear, diminished breath sounds, No accessory muscle use, No crackles/rales, No rhonchi Cardiovascular Exam: regular rate/rhythm, normal heart sounds Gastrointestinal/Abdomen Exam: soft, No tenderness, No mass Extremity Exam: normal inspection Skin Exam: normal color, warm, dry Final Diagnosis/Problem List - Final Discharge Diagnosis/Problem (1) Pneumonia Current Visit: Yes Status: Acute Assessment & Plan: home on po cefdinir x 5 days, has completed 5 days of IV zithromax inpatient. lungs are clear today Code(s): J18.9 - PNEUMONIA, UNSPECIFIED ORGANISM (2) COPD exacerbation Current Visit: Yes Status: Acute Code(s): J44.1 - CHRONIC OBSTRUCTIVE PULMONARY DISEASE W (ACUTE) EXACERBATION (3) ELYSE (acute kidney injury) Current Visit: Yes Status: Resolved Code(s): N17.9 - ACUTE KIDNEY FAILURE, UNSPECIFIED - Discharge Disposition: Home, Self-Care Condition: Stable Prescriptions: New Cefdinir 300 mg PO BID #10 cap Continue Apixaban [Eliquis 5 mg Tablet] 2.5 mg PO BID Bumetanide 1 mg [Bumex 1 mg] 1 mg PO DAILY Memantine HCl 5 mg PO QHS PANTOPRAZOLE 40 mg Tablet [Protonix 40MG Tablet] 40 mg PO DAILY Losartan Potassium [Cozaar] 100 mg PO DAILY Folic Acid 1 mg [Folate 1 mg] 1 mg PO DAILY Donepezil HCl [Aricept] 5 mg PO DAILY Amlodipine Besylate 5 mg [Norvasc 5 mg] 5 mg PO DAILY Atorvastatin Calcium 40 mg PO HS Nitroglycerin 0.4 mg Tablet [Nitrostat 0.4 MG Tablet] 1 tablet SL Q5MIN PRN MR X 3 PRN PRN Reason: Chest Pain OLANZapine [Olanzapine] 10 mg PO HS Insulin Glargine,Hum.rec.anlog [Lantus] 30 unit SQ DAILY Escitalopram Oxalate [Lexapro] 10 mg PO DAILY Aspirin 81 gm Chew [Baby Aspirin 81 mg Chew] 81 mg PO DAILY Insulin Lispro [Humalog] 10 unit SQ TIDWM Potassium Chloride 7.5 ml PO BID Fluticasone/Umeclidin/Vilanter [Trelegy Ellipta 100-62.5-25] 1 puff IH DAILY Ipratropium/Albuterol Sulfate [Iprat-Albut 0.5-3(2.5) mg/3 ml] 1 neb IH BID Ergocalciferol (Vitamin D2) [Vitamin D2] 50,000 units PO WEEKLY Acetaminophen with Codeine [Acetaminophen-Cod #3 Tablet] 1 each PO Q6HPRN PRN PRN Reason: Pain Guaifenesin 600 mg ER [Mucinex 600MG ER Tabs] 600 mg PO BID Additional Instructions: [facility] HAS BEEN SET UP. THEY WILL CONTACT YOU FOR AN APT. YOU CAN REACH THEM AT [phone] IF YOU HAVE ANY NEEDS BEFORE YOU HEAR FROM THEM Follow up with: JANNETTE YADAV MD [Primary Care Provider] -
[2022-12-01] MEDS: Pepcid 20 MG VIAL IV SCH (09:41)
[2022-12-01] MEDS: Cozaar 50 MG PO SCH (09:41)
[2022-12-01] MEDS: ELIQUIS 2.5 MG TABLET PO SCH (09:41)
[2022-12-01] MEDS: Klor Con PO SCH (09:42)
[2022-12-01] MEDS: Protonix 40MG Tablet PO SCH (09:42)
[2022-12-01] MEDS: Lexapro PO SCH (09:42)
[2022-12-01] MEDS: NORVASC 5 MG PO SCH (09:42)
[2022-12-01] MEDS: Advair Hfa 115/21 Common canister IH SCH (10:00)
[2022-12-02 07:36] VITALS: O2SAT 98
== END 2022-12-01 10:52 | disposition home health service (06) | DRG 194 ==
LOC: ED 17:42 → MED SURG 21:49 → OBSVTOIN 11-26 07:58
PROVIDERS: ADMIT Internal Medicine; ATTEND Family Medicine
DX: J18.9 Pneumonia, unspecified organism (principal); J44.1 Chronic obstructive pulmonary disease with (acute) exacerbation; N17.9 Acute kidney failure, unspecified; I10 Essential (primary) hypertension; E11.9 Type 2 diabetes mellitus without complications; F03.90 Unspecified dementia, unspecified severity, without behavioral disturbance, psychotic disturbance, mood disturbance, and anxiety; Z79.01 Long term (current) use of anticoagulants; Z79.899 Other long term (current) drug therapy; Z20.828 Contact with and (suspected) exposure to other viral communicable diseases; Z99.81 Dependence on supplemental oxygen
CPT/HCPCS: 0241U; 36000; 36415; 71250; 74230; 80048; 80053; 81001; 82947; 83036; 83605; 83880; 84484; 85025; 85027; 85610; 85730; 87077; 87086; 87186; 92611; 93005; 93268; 94002; 94003; 94640; 94760; 96374; 97161; 99285; G0378; J0456; J0696; J1817; J2405; J2920; J2930; J7609; A9270-GY

== ENCOUNTER 2023-08-29 09:54 | Observation (INO) | payer MEDICARE, OTHER ==
[2023-08-29] MEDS ORDERED: Sodium Chloride 0.9% 1000 ML 1,000 ML ONE (10:46)
[2023-08-29] MEDS: Sodium Chloride 0.9% 1000 ML 1,000 ML IV SCH (10:47)
[2023-08-29 11:03] LABS: Absolute Neutrophil Ct (ANC) 5.27 x10^3/uL (1.4-6.9); BASOPHIL % 0.5 % (0.0-0.4); Basophil (Absolute #) 0.04 x10^3/uL (0-0.4); Eosinophil % 4.3 % (0.00-5.0); Eosinophil (Absolute #) 0.32 x10^3/uL (0-0.5); Hematocrit 40.3 % (35-47); IMMATURE GRAN # 0.04 x10^3u/L (0.00-0.03); IMMATURE GRAN % 0.5 % (0.00-0.4); Lymphocyte (Absolute #) 1.41 x10^3/uL (1.0-4.6); Lymphocytes % 18.9 % (24.0-44.0); Mean Cell Volume 94.2 fL (78-100); Mean Corpuscular Hgb Concent. 29.8 g/dL (32-36); Mean Platelet Volume 9.9 fL (7.5-11.0); Monocytes % 5.3 % (0.0-12.0); Neutrophil % 70.5 % (36.0-66.0); Platelet Count 227 x10^3/uL (150-450); Red Blood Count 4.28 x10^6/uL (4.1-5.4); Red Cell Distribution Width 14.5 % (11.5-14.0); White Blood Count 7.5 x10^3/uL (4.0-10.5)
--- NOTE | 2023-08-29 11:15 | ERPHSYRPT ---
- History of Present Illness Time Seen by Provider: 08/29/23 11:10 Source: family, EMS Exam Limitations: clinical condition Patient Subjective Stated Complaint: shortness of breath Triage Nursing Assessment: Pt was brought to the ER by EMS, hypertensive, tachypnic, placed on bipap, coarse lung sounds heard throughout, pt is on bipap most of the time at home and was having a hard time getting her sats up this morning and the machine quit working when medics were there, abdomen is distended, pulses normal, skin n/c/d, resting comfortably on the bed Physician History: Patient is 83-year-old female with significant past medical history of ventricular arrhythmias 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 Patient is using BiPAP at home but it appears that it does did not work and her oxygen saturations were in low 70s so 911 was called and EMS went to her home where they have a hard time keeping her oxygen saturation up so they brought her into the emergency room in the emergency room patient came with the BiPAP which was showing oxygen saturation around 100%. Patient is unable to answer other questions due to severe shortness of breath. Patient is also complaining of abdominal distention. Other history was achieved from her daughter who came to the emergency room with her. Timing/Duration: today Activities at Onset: none Severity of Dyspnea-Max: severe Severity of Dyspnea-Current: severe Possible Cause: frequent episodes, chronic episodes Associated Symptoms: wheezing Allergies/Adverse Reactions: carvedilol Allergy (Verified 08/29/23 10:18) Home Medications: Amlodipine Besylate 5 mg [Norvasc 5 mg] 5 mg PO DAILY 02/08/18 [History] Apixaban [Eliquis 5 mg Tablet] 2.5 mg PO BID 02/08/18 [History] Atorvastatin Calcium 40 mg PO HS 02/08/18 [History] Bumetanide 1 mg [Bumex 1 mg] 1 mg PO DAILY 02/08/18 [History] Donepezil HCl [Aricept] 5 mg PO DAILY 02/08/18 [History] Folic Acid 1 mg [Folate 1 mg] 1 mg PO DAILY 02/08/18 [History] Losartan Potassium [Cozaar] 100 mg PO DAILY 02/08/18 [History] Memantine HCl 5 mg PO QHS 02/08/18 [History] PANTOPRAZOLE 40 mg Tablet [Protonix 40MG Tablet] 40 mg PO DAILY 02/08/18 [History] OLANZapine [Olanzapine] 10 mg PO HS 02/27/19 [History] Insulin Glargine,Hum.rec.anlog [Lantus] 20 unit SQ BID 04/19/19 [History] Aspirin 81 gm Chew [Baby Aspirin 81 mg Chew] 81 mg PO DAILY 08/30/19 [History] Escitalopram Oxalate [Lexapro] 10 mg PO DAILY 08/30/19 [History] Insulin Lispro [Humalog] 10 unit SQ TIDWM 08/31/19 [History] Potassium Chloride 7.5 ml PO BID 07/01/21 [History] Fluticasone/Umeclidin/Vilanter [Trelegy Ellipta 100-62.5-25] 1 puff IH DAILY 07/09/21 [History] Ergocalciferol (Vitamin D2) [Vitamin D2] 50,000 units PO WEEKLY 05/12/22 [History] Albuterol Sulfate [Albuterol Sulfate Hfa] 2 inh PO UD 08/29/23 [History] Amoxicillin/Potassium Clav [Amox-Clav 875-125 mg Tablet] 1 each PO BID 08/29/23 [History] Hx Tetanus, Diphtheria Vaccination/Date Given: Yes Hx Influenza Vaccination/Date Given: Yes Hx Pneumococcal Vaccination/Date Given: Yes Travel Risk - International Travel Have you traveled outside of the country in past 3 weeks: No - Coronavirus Screening Are you exhibiting any of the following symptoms?: No Close contact with a COVID-19 positive Pt in past 14-21 Days: No - Vaccine Status Have you recieved a Covid-19 vaccination: Yes (unknown) Family Resource Specialist: Unknown - Vaccination Dates Dates if Unknown: unknown - Review of Systems Constitutional: Lethargy, Weakness, No Fever, No Chills Eyes: No Symptoms Ears, Nose, & Throat: No Symptoms Respiratory: Dyspnea, Dyspnea on Exertion (MEREDITH), Wheezing, No Cough Cardiac: Palpitations, Orthopnea, PND, No Chest Pain, No Edema, No Syncope Abdominal/Gastrointestinal: Abdominal Pain, No Nausea, No Vomiting, No Diarrhea Genitourinary Symptoms: No Dysuria Musculoskeletal: No Back Pain, No Neck Pain Skin: No Rash Neurological: No Dizziness, No Focal Weakness, No Sensory Changes Psychological: No Symptoms Endocrine: No Symptoms Hematologic/Lymphatic: Anemia All Other Systems: Reviewed and Negative - Past Medical History Pertinent Past Medical History: Yes Neurological History: Alzheimer's Disease, Dementia, Peripheral Neuropathy, Stroke ENT History: Cataracts Cardiac History: Hypertension Respiratory History: CHF, COPD, Sleep Apnea, Other Endocrine Medical History: Diabetes Type II Musculoskeletal History: Arthritis GI Medical History: Diverticulitis, Irritable Bowel History: No Pertinent History, Renal Disease Psycho-Social History: No Pertinent History Female Reproductive Disorders: No Pertinent History, Other Other Medical History: pt family states pt noncompliant with cpap, ovarian cysts - Past Surgical History Past Surgical History: Yes Neuro Surgical History: No Pertinent History Cardiac: No Pertinent History, Internal Defibrillator, Pacemaker Respiratory: No Pertinent History Gastrointestinal: No Pertinent History Genitourinary: Other Musculoskeletal: No Pertinent History Female Surgical History: Tubal Ligation Other Surgical History: ear surgery, cataract surgery, bladder tuck,lasik surgery. Kidney removed - Social History Smoking Status: Former smoker How long have you smoked: 50 Exposure to second hand smoke: No Drug Use: none Patient Lives Alone: No Significant Family History: no pertinent family hx - Nursing Vital Signs Nursing Vital Signs: Initial Vital Signs Pulse Rate 68 08/29/23 09:56 Respiratory Rate 33 H 08/29/23 09:56 O2 Sat by Pulse Oximetry 98 08/29/23 09:56 Pain Scale Pain Intensity 0 - Physical Exam General Appearance: moderate distress Eye Exam: PERRL/EOMI Neck Exam: normal inspection, supple Respiratory Exam: diminished breath sounds, accessory muscle use, prolonged expirations, crackles/rales, rhonchi, wheezing Cardiovascular/Chest Exam: edema, JVD, tachycardia, irregular Abdominal/Gastrointestinal Exam: soft, distention, No tenderness, No mass Extremity Exam: non-tender, normal range of motion, normal inspection, no calf tenderness, no pedal edema Neurologic Exam: alert, oriented x 3, cooperative, scabbler II-XII nml as tested, sensation nml, No motor deficits Skin Exam: normal color, warm, No dry SpO2 Interpretation: borderline oxygenation SpO2: 99 O2 Delivery: BiPap/CPAP - Course Nursing assessment & vital signs reviewed: Yes - Radiology Exams Chest X-ray Interpretation: Reviewed by me Abdomen X-ray Interpretation: Reviewed by me Ordered Tests: Active Orders 24 hr Category Date Time Status Up Ad Didi ROUTINE Activity 08/29/23 14:29 Active Call Admit Doctor for Orders ON ADMISSION Care 08/29/23 14:28 Active Code Status Order ROUTINE Care 08/29/23 14:28 Active EKG-ER Only STAT Care 08/29/23 10:15 Active Fall Protocol ROUTINE Care 08/29/23 14:29 Active POCT Glucose Check ACHS Care 08/29/23 14:28 Active Heart-Healthy Diet Diet 08/29/23 Dinner Active CHEST 1 VIEW (PORTABLE) Stat Exams 08/29/23 11:31 Taken KUB Stat Exams 08/29/23 11:31 Taken CBC W DIFF Stat Lab 08/29/23 10:35 Completed CMP Stat Lab 08/29/23 10:30 Completed MAGNESIUM Stat Lab 08/29/23 10:35 Completed NT PRO BNPII Stat Lab 08/29/23 10:35 Completed TROPONIN Stat Lab 08/29/23 10:35 Completed BiPap/CPAP STAT RT 08/29/23 10:15 Active Respiratory Therapy Consult ONCE RT 08/29/23 14:28 Active Medication Summary Generic Name Dose Route Start Last Admin Trade Name Freq PRN Reason Stop Dose Admin Sodium Chloride 1,000 mls @ 50 mls/hr 08/29/23 10:15 08/29/23 10:47 Sodium Chloride 0.9% 1000 Ml IV 09/28/23 10:14 50 mls/hr .Q20H ROSARIO Administration Discontinued Medications Generic Name Dose Route Start Last Admin Trade Name Freq PRN Reason Stop Dose Admin Ceftriaxone Sodium 1 gm in 100 mls @ 200 mls/hr 08/29/23 12:07 08/29/23 12:53 Rocephin 1 Gm / 100 Ml Nacl IV 08/29/23 12:36 Infused STAT ONE Infusion Ceftriaxone Sodium Confirm 08/29/23 12:21 Rocephin 1 Gm / 100 Ml Nacl Administered 08/29/23 12:22 Dose 1 gm in 100 mls @ ud IV .STK-MED ONE Lab/Rad Data: Laboratory Result Diagrams 08/29/23 10:35 08/29/23 10:30 Laboratory Results 08/29/23 08/29/23 08/29/23 Range/Units 10:35 10:35 10:35 WBC (4.0-10.5) x10^3/uL RBC (4.1-5.4) x10^6/uL Hgb (12.0-16.0) g/dL Hct (35-47) % MCV (78-100) fL MCH (26-32) pg MCHC (32-36) g/dL RDW (11.5-14.0) % Plt Count (150-450) x10^3/uL MPV (7.5-11.0) fL Gran % (36.0-66.0) % Immature Gran % (Auto) (0.00-0.4) % Nucleat RBC Rel Count (0.00-0.1) % Eos # (Auto) (0-0.5) x10^3/uL Immature Gran # (Auto) (0.00-0.03) x10^3u/L Absolute Lymphs (auto) (1.0-4.6) x10^3/uL Absolute Monos (auto) (0.0-1.3) x10^3/uL Absolute Nucleated RBC (0.00-0.01) x10^3u/L Lymphocytes % (24.0-44.0) % Monocytes % (0.0-12.0) % Eosinophils % (0.00-5.0) % Basophils % (0.0-0.4) % Absolute Granulocytes (1.4-6.9) x10^3/uL Basophils # (0-0.4) x10^3/uL Sodium (137-145) mmol/L Potassium (3.5-5.1) mmol/L Chloride (98-107) mmol/L Carbon Dioxide (22-30) mmol/L Anion Gap (5-15) MEQ/L BUN (7-17) mg/dL Creatinine (0.52-1.04) mg/dL Estimated GFR ML/MIN Glucose (74-106) mg/dL Calcium (8.4-10.2) mg/dL Magnesium 2.4 H (1.6-2.3) mg/dL Total Bilirubin (0.2-1.3) mg/dL AST (14-36) U/L ALT (0-35) U/L Alkaline Phosphatase (38-126) U/L Troponin I 0.018 (0.000-0.034) ng/mL NT-Pro-B Natriuret Pep 862 (<300) pg/mL Serum Total Protein (6.3-8.2) g/dL Albumin (3.5-5.0) g/dL Influenza Type A Ag NEGATIVE (NEGATIVE) Influenza Type B Ag NEGATIVE (NEGATIVE) RSV (PCR) NEGATIVE (NEGATIVE) SARS-CoV-2 (PCR) NEGATIVE (NEGATIVE) 08/29/23 08/29/23 Range/Units 10:35 10:30 WBC 7.5 (4.0-10.5) x10^3/uL RBC 4.28 (4.1-5.4) x10^6/uL Hgb 12.0 (12.0-16.0) g/dL Hct 40.3 (35-47) % MCV 94.2 (78-100) fL MCH 28.0 (26-32) pg MCHC 29.8 L (32-36) g/dL RDW 14.5 H (11.5-14.0) % Plt Count 227 (150-450) x10^3/uL MPV 9.9 (7.5-11.0) fL Gran % 70.5 H (36.0-66.0) % Immature Gran % (Auto) 0.5 H (0.00-0.4) % Nucleat RBC Rel Count 0.0 (0.00-0.1) % Eos # (Auto) 0.32 (0-0.5) x10^3/uL Immature Gran # (Auto) 0.04 H (0.00-0.03) x10^3u/L Absolute Lymphs (auto) 1.41 (1.0-4.6) x10^3/uL Absolute Monos (auto) 0.40 (0.0-1.3) x10^3/uL Absolute Nucleated RBC 0.00 (0.00-0.01) x10^3u/L Lymphocytes % 18.9 L (24.0-44.0) % Monocytes % 5.3 (0.0-12.0) % Eosinophils % 4.3 (0.00-5.0) % Basophils % 0.5 (0.0-0.4) % Absolute Granulocytes 5.27 (1.4-6.9) x10^3/uL Basophils # 0.04 (0-0.4) x10^3/uL Sodium 140 (137-145) mmol/L Potassium 4.1 (3.5-5.1) mmol/L Chloride 104 (98-107) mmol/L Carbon Dioxide 27 (22-30) mmol/L Anion Gap 13.1 (5-15) MEQ/L BUN 24 H (7-17) mg/dL Creatinine 1.60 H (0.52-1.04) mg/dL Estimated GFR 31.6 ML/MIN Glucose 115 H (74-106) mg/dL Calcium 9.5 (8.4-10.2) mg/dL Magnesium (1.6-2.3) mg/dL Total Bilirubin 0.60 (0.2-1.3) mg/dL AST 24 (14-36) U/L ALT 15 (0-35) U/L Alkaline Phosphatase 104 (38-126) U/L Troponin I (0.000-0.034) ng/mL NT-Pro-B Natriuret Pep (<300) pg/mL Serum Total Protein 7.2 (6.3-8.2) g/dL Albumin 3.8 (3.5-5.0) g/dL Influenza Type A Ag (NEGATIVE) Influenza Type B Ag (NEGATIVE) RSV (PCR) (NEGATIVE) SARS-CoV-2 (PCR) (NEGATIVE) - Progress Progress: unchanged Air Movement: fair Blood Culture(s) Obtained: No Antibiotics given: Yes Discussed with : Other Will see patient in: hospital (observation) Counseled pt/family regarding: lab results, diagnosis, need for follow-up, rad results Medical Desision Making - Independent Historian Additional History obtained from: Family, Indirect Sales Representative - Discussion of managment Care discussed with:: hospitalist Reviewed:: Test results, Need for additional workup Agreed on:: Treatment plan, decision to admit, place in obs Will see patient: in hospital - Diagnostic Testing Diagnostic test were ordered, analyzed, and reviewed by me: Yes Radiological Interpretation: Reviewed by me - Risk of complications The pt has a high risk of morbidity or mortality based on: Drug therapy requiring intensive monitoring for toxicity, Decision regarding hospitilization or escalation of hosp level of care - Departure Departure Disposition: Observation Clinical Impression: Chronic hypoxemic respiratory failure, COPD exacerbation CHF (congestive heart failure) Qualifiers: Heart failure type: end stage Qualified Code(s): I50.84 - End stage heart failure Condition: Fair Critical Care Time: Yes Critical Care Time(excluding separately billable procedures): Critical 30-74 mins Referrals: JANNETTE YADAV MD [Primary Care Provider] - Follow up/PCP as directed Instructions: Chronic Obstructive Pulmonary Disease, Heart Failure
[2023-08-29 11:38] LABS: INFLUENZA A NEGATIVE (NEGATIVE); INFLUENZA B NEGATIVE (NEGATIVE); RESPIRATORY SYNCTIAL VIRUS NEGATIVE (NEGATIVE); SARS-CoV-2 Xpert Express NEGATIVE (NEGATIVE)
[2023-08-29 11:46] LABS: MAGNESIUM 2.4 mg/dL (1.6-2.3); TROPONIN 0.018 ng/mL (0.000-0.034)
[2023-08-29] MEDS ORDERED: ROCEPHIN 1 GM / 100 ML NaCl 1 GM/100 ML IVPB IV ONE (12:21)
[2023-08-29] MEDS: ROCEPHIN 1 GM / 100 ML NaCl 1 GM/100 ML IVPB IV ONE (12:23)
[2023-08-29 12:47] LABS: ALBUMIN 3.8 g/dL (3.5-5.0); BILIRUBIN,TOTAL 0.6 mg/dL (0.2-1.3); Calcium 9.5 mg/dL (8.4-10.2); Creatinine 1 1.6 mg/dL (0.52-1.04); EST GLOMERULAR FILTRATION RATE 31.6 ML/MIN; Total Protein 7.2 g/dL (6.3-8.2)
[2023-08-29 12:57] LABS: ANION GAP 13.1 MEQ/L (5-15); Potassium 4.1 mmol/L (3.5-5.1)
--- NOTE | 2023-08-29 15:48 | PCM.HP ---
History of Present Illness - Chief Complaint Chief Complaint: Hypoxemic respiratory failure, CHF Date: 08/29/23 History of Present Illness: is a 83 year old female with pmhx of depression, anxiety, dementia, Alzheimer's disease, stroke ( on eliquis), peripheral neuropathy, sleep apnea, HTN, CKD, cataracts, obesity, TYpe II DM, COPD, heart murmur, pacemaker/ defib, diverticulitis, IBS, ventriculars arrythmias,history of infrarenal 7 cm abdominal aneurysm, and CHF (severe combined systolic and diastolic). She came into the ER today by EMS due to having worsening shortness of breath since this morning. Patient is using BiPAP at home but it appears that it does did not work and her oxygen saturations were in low 70s. 911 was called and EMS went to her home where they have a hard time keeping her oxygen saturation up so they brought her into the emergency room. In the emergency room patient came with the BiPAP which was showing oxygen saturation around 100%. Patient is unable to answer other questions due to severe shortness of breath. Patient is also complaining of abdominal distention. Her daughter came with her today to the hospital and is providing information. She was started on ceftriaxone in ER and IV fluids started for COPD exacerbation. CXR and KUB pending. Will continue antibiotics and start steroids and duonebs for COPD exacerbation. Lasix 20mg BID started for CHF exacerbation. IVF stopped. - Review of Systems Constitutional: Fatigue, Lethargy, No Fever, No Chills Eyes: No Symptoms Ears, Nose, & Throat: No Symptoms Respiratory: Orthopnea, Short Of Breath, No Cough Cardiac: No Chest Pain, No Edema, No Syncope Abdominal/Gastrointestinal: Abdominal Pain (and distention), No Nausea, No Vomiting, No Diarrhea Genitourinary Symptoms: No Dysuria Musculoskeletal: No Back Pain, No Neck Pain Skin: No Rash Neurological: No Dizziness, No Focal Weakness, No Sensory Changes Psychological: No Symptoms Endocrine: No Symptoms Hematologic/Lymphatic: No Symptoms Immunological/Allergic: No Symptoms Medications & Allergies Home Medications: Home Medication List Amlodipine Besylate 5 mg [Norvasc 5 mg] 5 mg PO DAILY 02/08/18 [History Confirmed 08/29/23] Apixaban [Eliquis 5 mg Tablet] 2.5 mg PO BID 02/08/18 [History Confirmed 08/29/23] Atorvastatin Calcium 40 mg PO HS 02/08/18 [History Confirmed 08/29/23] Bumetanide 1 mg [Bumex 1 mg] 1 mg PO DAILY 02/08/18 [History Confirmed 08/29/23] Donepezil HCl [Aricept] 5 mg PO DAILY 02/08/18 [History Confirmed 08/29/23] Folic Acid 1 mg [Folate 1 mg] 1 mg PO DAILY 02/08/18 [History Confirmed 08/29/23] Losartan Potassium [Cozaar] 100 mg PO DAILY 02/08/18 [History Confirmed 08/29/23] Memantine HCl 5 mg PO QHS 02/08/18 [History Confirmed 08/29/23] PANTOPRAZOLE 40 mg Tablet [Protonix 40MG Tablet] 40 mg PO DAILY 02/08/18 [History Confirmed 08/29/23] OLANZapine [Olanzapine] 10 mg PO HS 02/27/19 [History Confirmed 08/29/23] Insulin Glargine,Hum.rec.anlog [Lantus] 20 unit SQ BID 04/19/19 [History Confirmed 08/29/23] Aspirin 81 gm Chew [Baby Aspirin 81 mg Chew] 81 mg PO DAILY 08/30/19 [History Confirmed 08/29/23] Escitalopram Oxalate [Lexapro] 10 mg PO DAILY 08/30/19 [History Confirmed 08/29/23] Insulin Lispro [Humalog] 10 unit SQ TIDWM 08/31/19 [History Confirmed 08/29/23] Potassium Chloride 7.5 ml PO BID 07/01/21 [History Confirmed 08/29/23] Fluticasone/Umeclidin/Vilanter [Trelegy Ellipta 100-62.5-25] 1 puff IH DAILY 07/09/21 [History Confirmed 08/29/23] Ergocalciferol (Vitamin D2) [Vitamin D2] 50,000 units PO WEEKLY 05/12/22 [History Confirmed 08/29/23] Albuterol Sulfate [Albuterol Sulfate Hfa] 2 inh PO UD 08/29/23 [History C onfirmed 08/29/23] Amoxicillin/Potassium Clav [Amox-Clav 875-125 mg Tablet] 1 each PO BID 08/29/23 [History Confirmed 08/29/23] Allergies/Adverse Reactions: Allergies Allergy/AdvReac Type Severity Reaction Status Date / Time carvedilol Allergy Verified 08/29/23 10:18 - Past Medical History Past Medical History: Yes Neurological History: Alzheimer's Disease, Dementia, Peripheral Neuropathy, Stroke ENT History: Cataracts Cardiac History: Hypertension Respiratory History: CHF, COPD, Sleep Apnea, Other Endocrine Medical History: Diabetes Type II Musculoskelatal History: Arthritis GI Medical History: Diverticulitis, Irritable Bowel History: No Pertinent History, Renal Disease Pyscho-Social History: No Pertinent History Reproductive Disorders: No Pertinent History, Other Comment: pt family states pt noncompliant with cpap, ovarian cysts - Past Surgical History Past Surgical History: Yes Neuro Surgical History: No Pertinent History Cardiac History: No Pertinent History, Internal Defibrillator, Pacemaker Respiratory Surgery: No Pertinent History GI Surgical History: No Pertinent History Genitourinary Surgical Hx: Other Musculskeletal Surgical Hx: No Pertinent History Female Surgical History: Tubal Ligation Other Surgical History: ear surgery, cataract surgery, bladder tuck,lasik surgery. Kidney removed Significant Family History: no pertinent family hx - Social History Smoking Status: Former smoker How long have you smoked: 50 Exposure to second hand smoke: No Alcohol: None Drug Use: none - Physical Exam Vital Signs: Vital Signs - 24 hr Pulse Resp BP Pulse Ox 08/29/23 15:00 69 29 H 99 08/29/23 14:50 92 H 23 100 08/29/23 14:40 93 H 23 99 08/29/23 14:32 99 08/29/23 14:30 67 21 99 08/29/23 14:20 61 22 100 08/29/23 14:10 63 25 H 100 08/29/23 14:00 64 21 100 08/29/23 13:50 63 24 100 08/29/23 13:40 63 20 100 08/29/23 13:30 63 24 100 08/29/23 13:20 65 23 100 08/29/23 13:10 64 17 100 08/29/23 13:00 65 18 100 08/29/23 12:50 63 26 H 100 08/29/23 12:40 63 18 99 08/29/23 12:30 61 17 99 08/29/23 12:20 64 16 99 08/29/23 12:10 63 15 98 08/29/23 12:00 84 1 L 98 08/29/23 11:50 87 31 H 100 08/29/23 11:40 90 19 99 08/29/23 11:30 74 30 H 135/74 97 08/29/23 11:10 60 23 100 08/29/23 11:00 62 33 H 99 08/29/23 10:50 62 36 H 98 08/29/23 10:40 66 32 H 97 08/29/23 10:32 61 32 H 73 L 08/29/23 09:56 68 39 H 98 General Appearance: no apparent distress, alert, lethargy, obese Neurologic Exam: alert, oriented x 3, cooperative, normal mood/affect, nml cerebellar function, nml station & gait, sensation nml, No motor deficits Eye Exam: PERRL/EOMI, eyes nml inspection Ears, Nose, Throat Exam: normal ENT inspection, TMs normal, pharynx normal, moist mucous membranes Neck Exam: normal inspection, non-tender, supple, full range of motion Respiratory Exam: diminished breath sounds, crackles/rales (bases), wheezing, No respiratory distress Cardiovascular Exam: regular rate/rhythm, normal heart sounds, normal peripheral pulses Gastrointestinal/Abdomen Exam: soft, normal bowel sounds, No tenderness, No mass Back Exam: normal inspection, normal range of motion, No CVA tenderness, No vertebral tenderness Extremity Exam: normal inspection, normal range of motion, pelvis stable Skin Exam: normal color, warm, dry, No rash Lymphatic Exam: No adenopathy Results - Labs Lab/Micro Results: Lab Results-Last 24 Hours 08/29/23 08/29/23 08/29/23 Range/Units 10:30 10:35 10:35 WBC 7.5 (4.0-10.5) x10^3/uL RBC 4.28 (4.1-5.4) x10^6/uL Hgb 12.0 (12.0-16.0) g/dL Hct 40.3 (35-47) % MCV 94.2 (78-100) fL MCH 28.0 (26-32) pg MCHC 29.8 L (32-36) g/dL RDW 14.5 H (11.5-14.0) % Plt Count 227 (150-450) x10^3/uL MPV 9.9 (7.5-11.0) fL Gran % 70.5 H (36.0-66.0) % Immature Gran % (Auto) 0.5 H (0.00-0.4) % Nucleat RBC Rel Count 0.0 (0.00-0.1) % Eos # (Auto) 0.32 (0-0.5) x10^3/uL Immature Gran # (Auto) 0.04 H (0.00-0.03) x10^3u/L Absolute Lymphs (auto) 1.41 (1.0-4.6) x10^3/uL Absolute Monos (auto) 0.40 (0.0-1.3) x10^3/uL Absolute Nucleated RBC 0.00 (0.00-0.01) x10^3u/L Lymphocytes % 18.9 L (24.0-44.0) % Monocytes % 5.3 (0.0-12.0) % Eosinophils % 4.3 (0.00-5.0) % Basophils % 0.5 (0.0-0.4) % Absolute Granulocytes 5.27 (1.4-6.9) x10^3/uL Basophils # 0.04 (0-0.4) x10^3/uL Sodium 140 (137-145) mmol/L Potassium 4.1 (3.5-5.1) mmol/L Chloride 104 (98-107) mmol/L Carbon Dioxide 27 (22-30) mmol/L Anion Gap 13.1 (5-15) MEQ/L BUN 24 H (7-17) mg/dL Creatinine 1.60 H (0.52-1.04) mg/dL Estimated GFR 31.6 ML/MIN Glucose 115 H (74-106) mg/dL Calcium 9.5 (8.4-10.2) mg/dL Magnesium 2.4 H (1.6-2.3) mg/dL Total Bilirubin 0.60 (0.2-1.3) mg/dL AST 24 (14-36) U/L ALT 15 (0-35) U/L Alkaline Phosphatase 104 (38-126) U/L Troponin I 0.018 (0.000-0.034) ng/mL NT-Pro-B Natriuret Pep (<300) pg/mL Serum Total Protein 7.2 (6.3-8.2) g/dL Albumin 3.8 (3.5-5.0) g/dL Influenza Type A Ag (NEGATIVE) Influenza Type B Ag (NEGATIVE) RSV (PCR) (NEGATIVE) SARS-CoV-2 (PCR) (NEGATIVE) 08/29/23 08/29/23 Range/Units 10:35 10:35 WBC (4.0-10.5) x10^3/uL RBC (4.1-5.4) x10^6/uL Hgb (12.0-16.0) g/dL Hct (35-47) % MCV (78-100) fL MCH (26-32) pg MCHC (32-36) g/dL RDW (11.5-14.0) % Plt Count (150-450) x10^3/uL MPV (7.5-11.0) fL Gran % (36.0-66.0) % Immature Gran % (Auto) (0.00-0.4) % Nucleat RBC Rel Count (0.00-0.1) % Eos # (Auto) (0-0.5) x10^3/uL Immature Gran # (Auto) (0.00-0.03) x10^3u/L Absolute Lymphs (auto) (1.0-4.6) x10^3/uL Absolute Monos (auto) (0.0-1.3) x10^3/uL Absolute Nucleated RBC (0.00-0.01) x10^3u/L Lymphocytes % (24.0-44.0) % Monocytes % (0.0-12.0) % Eosinophils % (0.00-5.0) % Basophils % (0.0-0.4) % Absolute Granulocytes (1.4-6.9) x10^3/uL Basophils # (0-0.4) x10^3/uL Sodium (137-145) mmol/L Potassium (3.5-5.1) mmol/L Chloride (98-107) mmol/L Carbon Dioxide (22-30) mmol/L Anion Gap (5-15) MEQ/L BUN (7-17) mg/dL Creatinine (0.52-1.04) mg/dL Estimated GFR ML/MIN Glucose (74-106) mg/dL Calcium (8.4-10.2) mg/dL Magnesium (1.6-2.3) mg/dL Total Bilirubin (0.2-1.3) mg/dL AST (14-36) U/L ALT (0-35) U/L Alkaline Phosphatase (38-126) U/L Troponin I (0.000-0.034) ng/mL NT-Pro-B Natriuret Pep 862 (<300) pg/mL Serum Total Protein (6.3-8.2) g/dL Albumin (3.5-5.0) g/dL Influenza Type A Ag NEGATIVE (NEGATIVE) Influenza Type B Ag NEGATIVE (NEGATIVE) RSV (PCR) NEGATIVE (NEGATIVE) SARS-CoV-2 (PCR) NEGATIVE (NEGATIVE) - Radiology Impressions Radiology Exams & Impressions: Radiology Procedures Category Date Time Status CHEST 1 VIEW (PORTABLE) Stat Exams 08/29/23 11:31 Taken ECHO W/2D AND DOPPLER [US] Routine Exams 08/30/23 15:33 Ordered KUB Stat Exams 08/29/23 11:31 Taken - Other Procedures and Tests Respiratory Therapy 08/29/23 10:15 BiPap/CPAP STAT 08/29/23 14:28 Respiratory Therapy Consult ONCE Assessment/Plan (1) COPD exacerbation Current Visit: Yes Status: Acute Assessment & Plan: - ceftriaxone started in the ER - On Bipap- O2 99% - baseline is Bipap midnight to 1300 the next day per daughter - RT evaluated bipap machine and found it to be working correctly. 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 - will need checked by maintenance - Echo ordered for 08/30- unable to do on the weekend - Cardiology , murmur - Echo from 03/01/19 The M-mode 2D, and Doppler echocardiogram including color flow Doppler shows the left ventricle is normal in size at 4.6 cm. The septal wall thickness is increased at 1.3 cm. The left ventricular posterior wall thickness is increased at 1.2 cm. There is no thrombus noted. There is normal contractility of the left ventricle with the ejection fraction calculated to be 62%. The mitral valve E to A inflow velocity ratio is decreased at 0.9 consistent with impaired left ventricular relaxation. The right ventricle is grossly normal. The left atrium is normal being 3.6 cm. The interatrial septum is intact. The right atrium is normal. The aortic valve is sclerotic with some decreased leaflet motion. The peak gradient is 32 mm of Mercury. There is mild aortic valvular stenosis. There is no aortic regurgitation present. There is mitral valve leaflet thickening associated with mild mitral regurgitation. There is mild to moderate tricuspid regurgitation. There is mild pulmonic regurgitation. The aortic root is normal at 3.4 cm. There is no pericardial effusion present. There is moderate pulmonary hypertension with a right ventricular systolic pressure calculated to be 41 mm of Mercury. IMPRESSION: 1) Normal contractility of the left ventricle. 2) MILD CONCENTRIC left ventricular hypertrophy. 3) EVIDENCE OF IMPAIRED left ventricULAR RELAXATION. 4) MILD AORTIC STENOSIS. 5) MILD mitral regurgitation. 6) MILD TO MODERATE tricuspid regurgitation. 7) MODERATE PULMONARY hypertension. 8) MILD PULMONIC regurgitation. Code(s): I50.9 - HEART FAILURE, UNSPECIFIED (3) Abdominal distention Current Visit: Yes Status: Acute Assessment & Plan: - KUB pending - Colace BID - UA Code(s): R14.0 - ABDOMINAL DISTENSION (GASEOUS) (4) Type II diabetes mellitus Current Visit: Yes Status: Chronic Qualifiers: Diabetes mellitus halfway insulin use: with halfway use Diabetes mellitus complication status: with circulatory complication Assessment & Plan: - A1C - accuchecks ac./hs, humalog s/s, lantus - const carb diet - A1C 11/28/22 6.73 (5) Depression with anxiety Current Visit: Yes Status: Chronic Assessment & Plan: - Continue home meds Code(s): F41.8 - OTHER SPECIFIED ANXIETY DISORDERS (6) Dementia in Alzheimer's disease Current Visit: Yes Status: Chronic Assessment & Plan: - Continue home meds Code(s): G30.9 - ALZHEIMER'S DISEASE, UNSPECIFIED; F02.80 - DEM IN OTH DIS CLASSD ELSWHR,UNSP SEV,W/O BEH/PSYCH/MOOD/ANX (7) Acute on chronic kidney failure Current Visit: No Status: Acute Assessment & Plan: - Creat 1.60- baseline1.46- near baseline - IVF started in ER- stopped d/t CHF Code(s): N17.9 - ACUTE KIDNEY FAILURE, UNSPECIFIED; N18.9 - CHRONIC KIDNEY DISEASE, UNSPECIFIED (8) Hypertension Current Visit: No Status: Chronic Qualifiers: Hypertension type: essential hypertension Assessment & Plan: - stable - continue home meds Code(s): I10 - ESSENTIAL (PRIMARY) HYPERTENSION (9) Sleep apnea Current Visit: No Status: Chronic Assessment & Plan: - Cpap/bipap at noc - Not compliant at home. Code(s): G47.30 - SLEEP APNEA, UNSPECIFIED (10) Elevated d-dimer Current Visit: Yes Status: Acute Assessment & Plan: - D-dimer 1.39 - May be r/t COPD exacerbation - Unable to do CT at this time - order VQ scan tomorrow- unable to do on the weekend Code(s): R79.89 - OTHER SPECIFIED ABNORMAL FINDINGS OF BLOOD CHEMISTRY (11) Hypermagnesemia Current Visit: Yes Status: Acute Assessment & Plan: - Mg+ 2.4 - Lasix IV for CHF - monitor VTE: Eliquis PPI: pantoprazole Next of Kin: daughter Glenna D/C plan: 2-3 days Code status: Full Code(s): E83.41 - HYPERMAGNESEMIA
[2023-08-29] MEDS ORDERED: TYLENOL 325 MG PO PRN (16:07)
[2023-08-29] MEDS ORDERED: Compazine 10 MG/2 ML IM PRN (16:08)
[2023-08-29] MEDS ORDERED: HUMALOG ONE (18:23)
[2023-08-29] MEDS: HUMALOG SQ SCH (18:28)
[2023-08-29] MEDS: Lasix 20 MG/2 ML IV SCH (18:28)
--- NOTE | 2023-08-29 18:42 | XRAY ---
Indication: Short of breath. Status post bronchoscopy 7 days ago. Comparison: June 27, 2023 Portable chest is now underinflated accentuating cardiopulmonary structures. Worsening mild left base infiltrate/atelectasis with stable right base infiltrate/atelectasis. Heart remains borderline enlarged again with tortuous/ectatic descending aorta and left pacemaker. Bony thorax intact again with osteopenia and degenerative changes.
--- NOTE | 2023-08-29 18:42 | XRAY ---
Indication: Abdomen distention. Comparison: None KUB demonstrates mild distended small and large bowel loops with mild rectal impaction. No focal bowel dilatation/infection or free air. Solid organs unremarkable. Extensive vascular calcifications. Osseous structures intact with osteopenia and mild degenerative changes.
[2023-08-29] MEDS: DUONEB 0.5-3 MG/3 ml Neb IH SCH (18:59)
[2023-08-29] MEDS: NON-FORMULARY ITEM (Insulin Lispro 1 UNIT Ml) SQ SCH (20:01)
[2023-08-29] MEDS ORDERED: zyPREXA 5MG TABLET ONE (23:23)
[2023-08-29] MEDS ORDERED: ELIQUIS 2.5 MG TABLET ONE (23:23)
[2023-08-29] MEDS ORDERED: Klor Con ONE (23:24)
[2023-08-29] MEDS ORDERED: solu-MEDROL ONE (23:24)
[2023-08-29] MEDS ORDERED: Sterile H2O 10 ml IJ ONE (23:27)
[2023-08-29] MEDS: Lantus Insulin SQ SCH (23:35)
[2023-08-29] MEDS: solu-MEDROL 40 MG, Sterile H2O 10 ml 1 ML IV SCH (23:36)
[2023-08-29] MEDS: Docusate Sodium 100 MG PO SCH (23:43)
[2023-08-29] MEDS: Namenda 5 MG PO SCH (23:43)
[2023-08-29] MEDS: Mucinex 600MG ER Tabs PO SCH (23:44)
[2023-08-29] MEDS: ZOCOR 20MG PO SCH ×2 (23:45→23:50)
[2023-08-29] MEDS: APIXABAN PO SCH (23:47)
[2023-08-29] MEDS: NON-FORMULARY ITEM (Potassium Chloride [Potassium Chloride] 20 MEQ/15 ML Liquid) PO SCH (23:48)
[2023-08-29] MEDS: LIPITOR 40MG PO SCH (23:48)
[2023-08-29] MEDS: NON-FORMULARY ITEM (Olanzapine [Olanzapine] 10 MG Tablet) PO SCH (23:48)
[2023-08-30 04:28] LABS: Hematocrit 40.1 % (35-47); Hemoglobin 12.1 g/dL (12.0-16.0); Mean Corpuscular Hemoglobin 28.1 pg (26-32); Mean Corpuscular Hgb Concent. 30.2 g/dL (32-36); Platelet Count 201 x10^3/uL (150-450); Red Blood Count 4.31 x10^6/uL (4.1-5.4); Red Cell Distribution Width 14.1 % (11.5-14.0); White Blood Count 7.8 x10^3/uL (4.0-10.5)
[2023-08-30 04:46] LABS: ALBUMIN 4.1 g/dL (3.5-5.0); ANION GAP 11.9 MEQ/L (5-15); BILIRUBIN,TOTAL 0.5 mg/dL (0.2-1.3); Calcium 9.4 mg/dL (8.4-10.2); Creatinine 1 1.63 mg/dL (0.52-1.04); EST GLOMERULAR FILTRATION RATE 30.9 ML/MIN; Potassium 4.2 mmol/L (3.5-5.1); Total Protein 7.6 g/dL (6.3-8.2)
[2023-08-30] MEDS: PATIENT OWN MEDICATION IH SCH (06:49)
[2023-08-30] MEDS ORDERED: VENTOLIN COMMON CANISTER IH PRN (07:30)
[2023-08-30] MEDS: Piperacillin/Tazobactam 2.25 GM 2.25 GM in Sodium Chloride 100ML MINI-BAG PLUS 100 ML IV SCH (10:04)
[2023-08-30] MEDS: Protonix 40MG Tablet PO SCH (10:05)
[2023-08-30] MEDS: Lexapro PO SCH (10:05)
[2023-08-30] MEDS: ELIQUIS 2.5 MG TABLET PO SCH (10:05)
[2023-08-30] MEDS: ECOTRIN 81 MG PO SCH (10:05)
[2023-08-30] MEDS: Aricept 10 MG PO SCH (10:06)
[2023-08-30] MEDS: NORVASC 5 MG PO SCH (10:09)
[2023-08-30] MEDS: Klor Con PO SCH (10:09)
[2023-08-30] MEDS: FOLATE 1 MG PO SCH (10:09)
[2023-08-30] MEDS ORDERED: PIPERACILLIN/TAZOBACTAM 3.375 GM in Sodium Chloride 100ML MINI-BAG PLUS 100 ML IV SCH (12:00)
--- NOTE | 2023-08-30 13:53 | PCM.NOTE ---
Date and Time: 08/30/23 1347 Subjective Assessment: 08/29/23 is a 83 year old female with pmhx of depression, anxiety, dementia, Alzheimer's disease, stroke ( on eliquis), peripheral neuropathy, sleep apnea, HTN, CKD, cataracts, obesity, TYpe II DM, COPD, heart murmur, pacemaker/ defib, diverticulitis, IBS, ventriculars arrythmias,history of infrarenal 7 cm abdominal aneurysm, and CHF (severe combined systolic and diastolic). She came into the ER today by EMS due to having worsening shortness of breath since this morning. Patient is using BiPAP at home but it appears that it does did not work and her oxygen saturations were in low 70s. 911 was called and EMS went to her home where they have a hard time keeping her oxygen saturation up so they brought her into the emergency room. In the emergency room patient came with the BiPAP which was showing oxygen saturation around 100%. Patient is unable to answer other questions due to severe shortness of breath. Patient is also complaining of abdominal distention. Her daughter came with her today to the hospital and is providing information. She was started on ceftriaxone in ER and IV fluids started for COPD exacerbation. CXR and KUB pending. Will continue antibiotics and start steroids and duonebs for COPD exacerbation. Lasix 20mg BID started for CHF exacerbation. IVF stopped. 08/30/23 Pt resting in bed. She is very WALES. Daughter explains she is worse WALES than usual. Awaiting to see if pt will be able to do VQ scan today to eval for elevated d-dimer. ST eval placed as she may has aspiration pneumonia according to CXR. She has a hx of swallowing concerns and normally is on pureed diet with honey thick liquids. UA pending. Started Zosyn for pneumonia. Continue lasix for CHF. Daughter reports she was recently off of Eliquis for 7 days for a bronch then restarted. This was last week. She denies any further concerns at this time. - Review of Systems Constitutional: No Fever, No Chills Eyes: No Symptoms Ears, Nose, & Throat: No Symptoms Respiratory: Cough, Short Of Breath Cardiac: No Chest Pain, No Edema, No Syncope Abdominal/Gastrointestinal: Constipation, No Abdominal Pain, No Nausea, No Vomiting, No Diarrhea Genitourinary Symptoms: No Dysuria Musculoskeletal: No Back Pain, No Neck Pain Skin: No Rash Neurological: No Dizziness, No Focal Weakness, No Sensory Changes Psychological: No Symptoms Endocrine: No Symptoms Hematologic/Lymphatic: No Symptoms Immunological/Allergic: No Symptoms Objective Exam General Appearance: mild distress, alert Neurologic Exam: alert, oriented x 3, cooperative, normal mood/affect, nml cerebellar function, sensation nml, No motor deficits Skin Exam: normal color, warm, dry Eye Exam: PERRL, EOMI, eyes nml inspection Ears, Nose, Throat Exam: normal ENT inspection, pharynx normal, moist mucous membranes Neck Exam: normal inspection, non-tender, supple, full range of motion Respiratory Exam: wheezing, No respiratory distress Cardiovascular Exam: regular rate/rhythm, normal heart sounds Gastrointestinal/Abdomen Exam: soft, distention, No tenderness, No mass Extremity Exam: normal inspection, normal range of motion Back Exam: normal inspection, normal range of motion, No CVA tenderness, No vertebral tenderness Pelvic Exam: deferred Rectal Exam: deferred OBJECTIVE DATA Vital Signs: Vital Signs - 24 hr Temp Pulse Resp BP Pulse Ox 08/30/23 12:00 97.5 F 69 19 145/75 97 08/30/23 08:00 97.1 F 60 22 138/71 99 08/30/23 06:55 60 42 H 99 08/30/23 03:30 98.5 F 65 21 139/65 99 08/30/23 01:03 60 28 H 97 08/30/23 00:00 98.2 F 63 22 128/62 97 08/29/23 19:59 97.8 F 94 H 26 H 137/71 94 L 08/29/23 19:07 94 H 26 H 94 L 08/29/23 16:29 70 24 100 08/29/23 15:52 97.7 F 70 29 H 133/74 95 08/29/23 15:00 69 29 H 99 08/29/23 14:50 92 H 23 100 08/29/23 14:40 93 H 23 99 08/29/23 14:32 99 08/29/23 14:30 67 21 99 08/29/23 14:20 61 22 100 08/29/23 14:10 63 25 H 100 08/29/23 14:00 64 21 100 08/29/23 13:50 63 24 100 Pain Assessment - Last Documented Pain Intensity 0 Intake and Output: Intake & Output 08/28/23 08/29/23 08/30/23 08/31/23 11:59 11:59 11:59 11:59 Intake Total 560 Balance 560 Weight 93.1 kg 88.6 kg Lab Results: Lab Results-Last 24 Hours 08/29/23 08/29/23 08/29/23 Range/Units 15:36 15:45 16:21 WBC (4.0-10.5) x10^3/uL RBC (4.1-5.4) x10^6/uL Hgb (12.0-16.0) g/dL Hct (35-47) % MCV (78-100) fL MCH (26-32) pg MCHC (32-36) g/dL RDW (11.5-14.0) % Plt Count (150-450) x10^3/uL MPV (7.5-11.0) fL D-Dimer 1.39 H* (0.0-0.50) mg/L Sodium (137-145) mmol/L Potassium (3.5-5.1) mmol/L Chloride (98-107) mmol/L Carbon Dioxide (22-30) mmol/L Anion Gap (5-15) MEQ/L BUN (7-17) mg/dL Creatinine (0.52-1.04) mg/dL Estimated GFR ML/MIN Glucose (74-106) mg/dL POC Glucometer 189 H (74 to 106) mg/dL Hemoglobin A1c (4.5-6.0) % Lactic Acid 1.1 (0.4-2.0) Calcium (8.4-10.2) mg/dL Magnesium (1.6-2.3) mg/dL Total Bilirubin (0.2-1.3) mg/dL AST (14-36) U/L ALT (0-35) U/L Alkaline Phosphatase (38-126) U/L Serum Total Protein (6.3-8.2) g/dL Albumin (3.5-5.0) g/dL Procalcitonin (0.030-0.080) ng/mL 08/29/23 08/29/23 08/29/23 Range/Units 20:48 Unknown Unknown WBC (4.0-10.5) x10^3/uL RBC (4.1-5.4) x10^6/uL Hgb (12.0-16.0) g/dL Hct (35-47) % MCV (78-100) fL MCH (26-32) pg MCHC (32-36) g/dL RDW (11.5-14.0) % Plt Count (150-450) x10^3/uL MPV (7.5-11.0) fL D-Dimer (0.0-0.50) mg/L Sodium (137-145) mmol/L Potassium (3.5-5.1) mmol/L Chloride (98-107) mmol/L Carbon Dioxide (22-30) mmol/L Anion Gap (5-15) MEQ/L BUN (7-17) mg/dL Creatinine (0.52-1.04) mg/dL Estimated GFR ML/MIN Glucose (74-106) mg/dL POC Glucometer 239 H (74 to 106) mg/dL Hemoglobin A1c 5.95 (4.5-6.0) % Lactic Acid (0.4-2.0) Calcium (8.4-10.2) mg/dL Magnesium (1.6-2.3) mg/dL Total Bilirubin (0.2-1.3) mg/dL AST (14-36) U/L ALT (0-35) U/L Alkaline Phosphatase (38-126) U/L Serum Total Protein (6.3-8.2) g/dL Albumin (3.5-5.0) g/dL Procalcitonin 0.097 H (0.030-0.080) ng/mL 08/30/23 08/30/23 08/30/23 Range/Units 04:15 04:15 04:15 WBC 7.8 (4.0-10.5) x10^3/uL RBC 4.31 (4.1-5.4) x10^6/uL Hgb 12.1 (12.0-16.0) g/dL Hct 40.1 (35-47) % MCV 93.0 (78-100) fL MCH 28.1 (26-32) pg MCHC 30.2 L (32-36) g/dL RDW 14.1 H (11.5-14.0) % Plt Count 201 (150-450) x10^3/uL MPV 10.0 (7.5-11.0) fL D-Dimer (0.0-0.50) mg/L Sodium 138 (137-145) mmol/L Potassium 4.2 (3.5-5.1) mmol/L Chloride 104 (98-107) mmol/L Carbon Dioxide 26 (22-30) mmol/L Anion Gap 11.9 (5-15) MEQ/L BUN 27 H (7-17) mg/dL Creatinine 1.63 H (0.52-1.04) mg/dL Estimated GFR 30.9 ML/MIN Glucose 204 H (74-106) mg/dL POC Glucometer (74 to 106) mg/dL Hemoglobin A1c (4.5-6.0) % Lactic Acid (0.4-2.0) Calcium 9.4 (8.4-10.2) mg/dL Magnesium 2.4 H (1.6-2.3) mg/dL Total Bilirubin 0.50 (0.2-1.3) mg/dL AST 22 (14-36) U/L ALT 18 (0-35) U/L Alkaline Phosphatase 91 (38-126) U/L Serum Total Protein 7.6 (6.3-8.2) g/dL Albumin 4.1 (3.5-5.0) g/dL Procalcitonin (0.030-0.080) ng/mL 08/30/23 08/30/23 Range/Units 06:39 11:33 WBC (4.0-10.5) x10^3/uL RBC (4.1-5.4) x10^6/uL Hgb (12.0-16.0) g/dL Hct (35-47) % MCV (78-100) fL MCH (26-32) pg MCHC (32-36) g/dL RDW (11.5-14.0) % Plt Count (150-450) x10^3/uL MPV (7.5-11.0) fL D-Dimer (0.0-0.50) mg/L Sodium (137-145) mmol/L Potassium (3.5-5.1) mmol/L Chloride (98-107) mmol/L Carbon Dioxide (22-30) mmol/L Anion Gap (5-15) MEQ/L BUN (7-17) mg/dL Creatinine (0.52-1.04) mg/dL Estimated GFR ML/MIN Glucose (74-106) mg/dL POC Glucometer 195 H 275 H (74 to 106) mg/dL Hemoglobin A1c (4.5-6.0) % Lactic Acid (0.4-2.0) Calcium (8.4-10.2) mg/dL Magnesium (1.6-2.3) mg/dL Total Bilirubin (0.2-1.3) mg/dL AST (14-36) U/L ALT (0-35) U/L Alkaline Phosphatase (38-126) U/L Serum Total Protein (6.3-8.2) g/dL Albumin (3.5-5.0) g/dL Procalcitonin (0.030-0.080) ng/mL Radiology Exams: Radiology Procedures Category Date Time Status CHEST 1 VIEW (PORTABLE) Stat Exams 08/29/23 11:31 Completed CHEST 2 VIEWS (PA AND LAT) Stat Exams 08/30/23 11:23 Ordered ECHO W/2D AND DOPPLER [US] Routine Exams 08/30/23 15:33 Taken KUB Stat Exams 08/29/23 11:31 Completed PULMONARY PERF VENTILATION [NUCMED] Routine Exams 08/30/23 07:01 Ordered Multi-Disciplinary Progress Notes: Multi-Disciplinary Progress Notes 08/30/23 11:10 Case Management Note by Jenny Sotelo NEW REFERRAL FAXED TO [facility] PER FAMILY REQUEST. THEY WILL NEED NOTIFIED AT TIME OF DC AT [phone]. THEY WILL NEED FAXED THE DC INSTRUCTIONS, DC MED LIST AND DC SUMMARY IF AVAILABLE TO [phone] Initialized on 08/30/23 11:10 - END OF NOTE 08/30/23 07:11 Pharmacy Note by Amilcar Hill Estimated CRCL is 23ml/min. Zosyn decreased to 2.25gm iv q6h per renal dosing policy. Initialized on 08/30/23 07:11 - END OF NOTE Assessment/Plan (1) COPD exacerbation Current Visit: Yes Status: Acute Code(s): J44.1 - CHRONIC OBSTRUCTIVE PULMONARY DISEASE W (ACUTE) EXACERBATION (2) CHF (congestive heart failure) Current Visit: Yes Status: Acute Qualifiers: Heart failure type: combined systolic and diastolic Code(s): I50.9 - HEART FAILURE, UNSPECIFIED (3) Abdominal distention Current Visit: Yes Status: Acute 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 use Diabetes mellitus complication status: with circulatory complication (5) Depression with anxiety Current Visit: Yes Status: Chronic Code(s): F41.8 - OTHER SPECIFIED ANXIETY DISORDERS (6) Dementia in Alzheimer's disease Current Visit: Yes Status: Chronic Code(s): G30.9 - ALZHEIMER'S DISEASE, UNSPECIFIED; F02.80 - DEM IN OTH DIS CLASSD ELSWHR,UNSP SEV,W/O BEH/PSYCH/MOOD/ANX (7) Acute on chronic kidney failure Current Visit: No Status: Acute Code(s): N17.9 - ACUTE KIDNEY FAILURE, UNSPECIFIED; N18.9 - CHRONIC KIDNEY DISEASE, UNSPECIFIED (8) Hypertension Current Visit: No Status: Chronic Qualifiers: Hypertension type: essential hypertension Code(s): I10 - ESSENTIAL (PRIMARY) HYPERTENSION (9) Sleep apnea Current Visit: No Status: Chronic Code(s): G47.30 - SLEEP APNEA, UNSPECIFIED (10) Elevated d-dimer Current Visit: Yes Status: Acute Code(s): R79.89 - OTHER SPECIFIED ABNORMAL FINDINGS OF BLOOD CHEMISTRY (11) Hypermagnesemia Current Visit: Yes Status: Acute Assessment & Plan: (1) COPD exacerbation Current Visit: Yes Status: Acute Assessment & Plan: - ceftriaxone started in the ER - On Bipap- O2 99% - baseline is Bipap midnight to 1300 the next day per daughter - RT evaluated bipap machine and found it to be working correctly. 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 - will need checked by maintenance - Echo ordered for 08/30- unable to do on the weekend- pending - Cardiology , murmur - Echo from 03/01/19 The M-mode 2D, and Doppler echocardiogram including color flow Doppler shows the left ventricle is normal in size at 4.6 cm. The septal wall thickness is increased at 1.3 cm. The left ventricular posterior wall thickness is increased at 1.2 cm. There is no thrombus noted. There is normal contractility of the left ventricle with the ejection fraction calculated to be 62%. The mitral valve E to A inflow velocity ratio is decreased at 0.9 consistent with impaired left ventricular relaxation. The right ventricle is grossly normal. The left atrium is normal being 3.6 cm. The interatrial septum is intact. The right atrium is normal. The aortic valve is sclerotic with some decreased leaflet motion. The peak gradient is 32 mm of Mercury. There is mild aortic valvular stenosis. There is no aortic regurgitation present. There is mitral valve leaflet thickening associated with mild mitral regurgitation. There is mild to moderate tricuspid regurgitation. There is mild pulmonic regurgitation. The aortic root is normal at 3.4 cm. There is no pericardial effusion present. There is moderate pulmonary hypertension with a right ventricular systolic pressure calculated to be 41 mm of Mercury. IMPRESSION: 1) Normal contractility of the left ventricle. 2) MILD CONCENTRIC left ventricular hypertrophy. 3) EVIDENCE OF IMPAIRED left ventricULAR RELAXATION. 4) MILD AORTIC STENOSIS. 5) MILD mitral regurgitation. 6) MILD TO MODERATE tricuspid regurgitation. 7) MODERATE PULMONARY hypertension. 8) MILD PULMONIC regurgitation. Code(s): I50.9 - HEART FAILURE, UNSPECIFIED (3) Abdominal distention Current Visit: Yes Status: Acute Assessment & Plan: - KUB pending - Colace BID - UA 08/30 - BM x1 last night - KUB 08/29 KUB demonstrates mild distended small and large bowel loops with mild rectal impaction. No focal bowel dilatation/infection or free air. Solid organs unremarkable. Extensive vascular calcifications. Osseous structures intact with osteopenia and mild degenerative changes. 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 use Diabetes mellitus complication status: with circulatory complication Assessment & Plan: - A1C - accuchecks ac./hs, humalog s/s, lantus - const carb diet - A1C 11/28/22 6.73 (5) Depression with anxiety Current Visit: Yes Status: Chronic Assessment & Plan: - Continue home meds Code(s): F41.8 - OTHER SPECIFIED ANXIETY DISORDERS (6) Dementia in Alzheimer's disease Current Visit: Yes Status: Chronic Assessment & Plan: - Continue home meds Code(s): G30.9 - ALZHEIMER'S DISEASE, UNSPECIFIED; F02.80 - DEM IN OTH DIS CLASSD ELSWHR,UNSP SEV,W/O BEH/PSYCH/MOOD/ANX (7) Acute on chronic kidney failure Current Visit: No Status: Acute Assessment & Plan: - Creat 1.60- baseline1.46- near baseline - IVF started in ER- stopped d/t CHF 08/30 - Creat 1.63- is getting IV lasix Code(s): N17.9 - ACUTE KIDNEY FAILURE, UNSPECIFIED; N18.9 - CHRONIC KIDNEY DISE ASE, UNSPECIFIED (8) Hypertension Current Visit: No Status: Chronic Qualifiers: Hypertension type: essential hypertension Assessment & Plan: - stable - continue home meds Code(s): I10 - ESSENTIAL (PRIMARY) HYPERTENSION (9) Sleep apnea Current Visit: No Status: Chronic Assessment & Plan: - Cpap/bipap at noc - Not compliant at home. Code(s): G47.30 - SLEEP APNEA, UNSPECIFIED (10) Elevated d-dimer Current Visit: Yes Status: Acute Assessment & Plan: - D-dimer 1.39 - May be r/t COPD exacerbation - Unable to do CT at this time - order VQ scan tomorrow- unable to do on the weekend 08/30 - VQ scan pending if pt is able to do Code(s): R79.89 - OTHER SPECIFIED ABNORMAL FINDINGS OF BLOOD CHEMISTRY (11) Hypermagnesemia Current Visit: Yes Status: Acute Assessment & Plan: - Mg+ 2.4 - Lasix IV for CHF - monitor 08/30 - Mg+ 2.4- monitor VTE: Eliquis PPI: pantoprazole Next of Kin: daughter Glenna D/C plan: 2-3 days Code status: Full Code(s): E83.41 - HYPERMAGNESEMIA (12) Aspiration pneumonia Current Visit: Yes Status: Acute Assessment & Plan: - Zosyn started - Steroids, duonebs - Procal 0.097 - ST eval - BC X2 - Chest XR 08/29 Portable chest is now underinflated accentuating cardiopulmonary structures. Worsening mild left base infiltrate/atelectasis with stable right base infiltrate/atelectasis. Heart remains borderline enlarged again with tortuous/ectatic descending aorta and left pacemaker. Bony thorax intact again with osteopenia and degenerative changes. Code(s): J69.0 - PNEUMONITIS DUE TO INHALATION OF FOOD AND VOMIT
--- NOTE | 2023-08-30 14:34 | XRAY ---
Indication: VQ scan. Comparison: One day earlier. Portable chest unchanged again demonstrating bibasilar infiltrates/atelectasis, left greater than right. Heart remains borderline enlarged again with tortuous/ectatic descending aorta and left pacemaker. No new cardiopulmonary abnormalities.
--- NOTE | 2023-08-30 14:38 | XRAY ---
Indication: Chest discomfort. Short of breath. Elevated d-dimer. Patient received 5.1 mCi technetium 99 MAA for the perfusion portion of the exam. Patient inhaled 37.0 mCi aerosolized technetium 99 DTPA for the ventilation. Multiple planar images obtained. Comparison: None Perfusion images demonstrates homogeneous radiopharmaceutical activity. Blunting right posterior gutter. Ventilation images demonstrates predominantly central radiopharmaceutical activity favoring chronic obstructive disease. Matched blunting right posterior gutter. Incidental ingested radiopharmaceutical activity in the GI system. Impression: 1. Small matched nonsegmental ventilation/perfusion defect right posterior gutter. PIOPED criteria for pulmonary embolus is low probability. 2. Incidental chronic obstructive disease.
[2023-08-30] MEDS: HUMALOG SQ PRN (17:12)
[2023-08-30] MEDS: zyPREXA 5MG TABLET PO SCH (22:09)
[2023-08-31 07:58] LABS: Hematocrit 42.8 % (35-47); Hemoglobin 12.7 g/dL (12.0-16.0); Mean Cell Volume 94.5 fL (78-100); Mean Corpuscular Hgb Concent. 29.7 g/dL (32-36); Mean Platelet Volume 10.3 fL (7.5-11.0); Platelet Count 241 x10^3/uL (150-450); Red Blood Count 4.53 x10^6/uL (4.1-5.4); Red Cell Distribution Width 14.3 % (11.5-14.0); White Blood Count 12.5 x10^3/uL (4.0-10.5)
[2023-08-31 08:14] LABS: ALBUMIN 4.3 g/dL (3.5-5.0); BILIRUBIN,TOTAL 0.4 mg/dL (0.2-1.3); Calcium 9.7 mg/dL (8.4-10.2); Creatinine 1 1.79 mg/dL (0.52-1.04); EST GLOMERULAR FILTRATION RATE 27.6 ML/MIN; MAGNESIUM 2.6 mg/dL (1.6-2.3); Potassium 4.1 mmol/L (3.5-5.1); Total Protein 7.9 g/dL (6.3-8.2)
[2023-08-31 11:11] LABS: Appearance Clear (Clear); Bilirubin Negative (Negative); Blood Negative (Negative); Glucose, Urine Negative (Negative); Ketones Negative (Negative); Leukocyte Esterase Negative (Negative); Nitrite Negative (Negative); Ph 6.5 (4.6-8.0); Protein,Urine Dip Trace (Negative); Specific Gravity 1.015 (1.005-1.030); Urobilinogen 0.2 mg/dL (0.2)
[2023-08-31 11:22] LABS: Bacteria None Seen /HPF (None Seen); Epithelial Cells None Seen /HPF (None Seen); Hyaline Casts NONE SEEN /LPF (0-2); RBC 0-2 /HPF (0-5); WBC 0-2 /HPF (0-5)
[2023-08-31 11:25] LABS: ADD URINE CULTURE? NO (NO)
--- NOTE | 2023-08-31 12:00 | XRAY ---
Indication: Aspiration. Modified barium swallow study performed by the Department of speech therapy with fluoroscopic assistance provided. Patient ingested multiple consistencies of liquids and solids. Full report and recommendations will be reported separately. Approximately 1 minute 20 seconds fluoroscopy used.
[2023-08-31] MEDS: Augmentin 875-125 Tablet PO SCH (13:05)
--- NOTE | 2023-08-31 15:20 | PCM.NOTE ---
Date and Time: 08/31/23 151 Subjective Assessment: 08/29/23 is a 83 year old female with pmhx of depression, anxiety, dementia, Alzheimer's disease, stroke ( on eliquis), peripheral neuropathy, sleep apnea, HTN, CKD, cataracts, obesity, TYpe II DM, COPD, heart murmur, pacemaker/ defib, diverticulitis, IBS, ventriculars arrythmias,history of infrarenal 7 cm abdominal aneurysm, and CHF (severe combined systolic and diastolic). She came into the ER today by EMS due to having worsening shortness of breath since this morning. Patient is using BiPAP at home but it appears that it does did not work and her oxygen saturations were in low 70s. 911 was called and EMS went to her home where they have a hard time keeping her oxygen saturation up so they brought her into the emergency room. In the emergency room patient came with the BiPAP which was showing oxygen saturation around 100%. Patient is unable to answer other questions due to severe shortness of breath. Patient is also complaining of abdominal distention. Her daughter came with her today to the hospital and is providing information. She was started on ceftriaxone in ER and IV fluids started for COPD exacerbation. CXR and KUB pending. Will continue antibiotics and start steroids and duonebs for COPD exacerbation. Lasix 20mg BID started for CHF exacerbation. IVF stopped. 08/30/23 Pt resting in bed. She is very AKHIOK. Daughter explains she is worse AKHIOK than usual. Awaiting to see if pt will be able to do VQ scan today to eval for elevated d-dimer. ST eval placed as she may has aspiration pneumonia according to CXR. She has a hx of swallowing concerns and normally is on pureed diet with honey thick liquids. UA pending. Started Zosyn for pneumonia. Continue lasix for CHF. Daughter reports she was recently off of Eliquis for 7 days for a bronch then restarted. This was last week. She denies any further concerns at this time. 08/31/23 Pt resting in bed. She is feeling much better today. She had her modified barium swallow eval today with ST and she feels pt can stay on same diet from home based on results. Awaiting PT eval for home needs. Lasix held today for ELYSE. Steroids decreased and antibiotics changed to oral in preparation for home d/c tomorrow. Pt denies CP, SOB, abd. pain, N/V/D. <VONDA HOLMAN - Last Filed: 08/31/23 15:12> Date and Time: 08/31/232011 <SHOLA JOHNSON - Last Filed: 08/31/23 20:12> - Review of Systems Constitutional: No Fever, No Chills Eyes: No Symptoms Ears, Nose, & Throat: No Symptoms Respiratory: Wheezing, No Cough, No Short Of Breath Cardiac: No Chest Pain, No Edema, No Syncope Abdominal/Gastrointestinal: No Abdominal Pain, No Nausea, No Vomiting, No Diarrhea Genitourinary Symptoms: No Dysuria Musculoskeletal: No Back Pain, No Neck Pain Skin: No Rash Neurological: No Dizziness, No Focal Weakness, No Sensory Changes Psychological: No Symptoms Endocrine: No Symptoms Hematologic/Lymphatic: No Symptoms Immunological/Allergic: No Symptoms <VONDA HOLMAN - Last Filed: 08/31/23 15:12> Objective Exam General Appearance: no apparent distress, alert, obese Neurologic Exam: alert, oriented x 3, cooperative, normal mood/affect, nml cerebellar function, sensation nml, No motor deficits Skin Exam: normal color, warm, dry Eye Exam: PERRL, EOMI, eyes nml inspection Ears, Nose, Throat Exam: normal ENT inspection, pharynx normal, moist mucous membranes Neck Exam: normal inspection, non-tender, supple, full range of motion Respiratory Exam: normal breath sounds, lungs clear, wheezing, No respiratory distress Cardiovascular Exam: regular rate/rhythm, normal heart sounds Gastrointestinal/Abdomen Exam: soft, No tenderness, No mass Extremity Exam: normal inspection, normal range of motion Back Exam: normal inspection, normal range of motion, No CVA tenderness, No vertebral tenderness Pelvic Exam: deferred Rectal Exam: deferred <VONDA HOLMAN - Last Filed: 08/31/23 15:12> OBJECTIVE DATA Vital Signs: Vital Signs - 24 hr Temp Pulse Resp BP Pulse Ox 08/31/23 12:37 66 20 98 08/31/23 11:28 97.6 F 75 16 169/77 97 08/31/23 07:14 97.9 F 60 18 144/66 99 08/31/23 06:47 60 21 99 02/20/24 04:00 96.2 F 59 L 16 175/79 99 08/31/23 00:00 61 18 97 08/30/23 23:54 97.8 F 63 16 141/74 98 08/30/23 19:02 97.3 F 65 18 125/58 98 08/30/23 18:25 66 22 98 08/30/23 16:00 97.4 F 67 18 136/62 95 Pain Assessment - Last Documented Pain Intensity 0 Intake and Output: Intake & Output 08/29/23 08/30/23 08/31/23 09/01/23 11:59 11:59 11:59 11:59 Intake Total 560 2455 580 Output Total 2300 Balance 560 155 580 Weight 93.1 kg 88.4 kg 88.6 kg Lab Results: Lab Results-Last 24 Hours 08/29/23 08/30/23 08/30/23 Range/Units 11:20 15:50 21:34 WBC (4.0-10.5) x10^3/uL RBC (4.1-5.4) x10^6/uL Hgb (12.0-16.0) g/dL Hct (35-47) % MCV (78-100) fL MCH (26-32) pg MCHC (32-36) g/dL RDW (11.5-14.0) % Plt Count (150-450) x10^3/uL MPV (7.5-11.0) fL Sodium (137-145) mmol/L Potassium (3.5-5.1) mmol/L Chloride (98-107) mmol/L Carbon Dioxide (22-30) mmol/L Anion Gap (5-15) MEQ/L BUN (7-17) mg/dL Creatinine (0.52-1.04) mg/dL Estimated GFR ML/MIN Glucose (74-106) mg/dL POC Glucometer 232 H 169 H (74 to 106) mg/dL Calcium (8.4-10.2) mg/dL Magnesium (1.6-2.3) mg/dL Total Bilirubin (0.2-1.3) mg/dL AST (14-36) U/L ALT (0-35) U/L Alkaline Phosphatase (38-126) U/L Serum Total Protein (6.3-8.2) g/dL Albumin (3.5-5.0) g/dL Urine Color Yellow (Yellow) Urine Appearance Clear (Clear) Urine pH 6.5 (4.6-8.0) Ur Specific Soldier 1.015 (1.005-1.030) Urine Protein Trace A (Negative) Urine Glucose (UA) Negative (Negative) mg/dL Urine Ketones Negative (Negative) Urine Blood Negative (Negative) Urine Nitrite Negative (Negative) Urine Bilirubin Negative (Negative) Urine Urobilinogen 0.2 (0.2) mg/dL Ur Leukocyte Esterase Negative (Negative) U Hyaline Cast (Auto) NONE SEEN (0-2) /LPF Urine Microscopic RBC 0-2 (0-5) /HPF Urine Microscopic WBC 0-2 (0-5) /HPF Ur Epithelial Cells None Seen (None Seen) /HPF Urine Bacteria None Seen (None Seen) /HPF Urine Culture Reflexed NO (NO) 08/31/23 08/31/23 08/31/23 Range/Units 04:28 04:28 07:01 WBC 12.5 H (4.0-10.5) x10^3/uL RBC 4.53 (4.1-5.4) x10^6/uL Hgb 12.7 (12.0-16.0) g/dL Hct 42.8 (35-47) % MCV 94.5 (78-100) fL MCH 28.0 (26-32) pg MCHC 29.7 L (32-36) g/dL RDW 14.3 H (11.5-14.0) % Plt Count 241 (150-450) x10^3/uL MPV 10.3 (7.5-11.0) fL Sodium 142 (137-145) mmol/L Potassium 4.1 (3.5-5.1) mmol/L Chloride 104 (98-107) mmol/L Carbon Dioxide 29 (22-30) mmol/L Anion Gap 12.0 (5-15) MEQ/L BUN 36 H (7-17) mg/dL Creatinine 1.79 H (0.52-1.04) mg/dL Estimated GFR 27.6 ML/MIN Glucose 223 H (74-106) mg/dL POC Glucometer 195 H (74 to 106) mg/dL Calcium 9.7 (8.4-10.2) mg/dL Magnesium 2.6 H (1.6-2.3) mg/dL Total Bilirubin 0.40 (0.2-1.3) mg/dL AST 29 (14-36) U/L ALT 18 (0-35) U/L Alkaline Phosphatase 90 (38-126) U/L Serum Total Protein 7.9 (6.3-8.2) g/dL Albumin 4.3 (3.5-5.0) g/dL Urine Color (Yellow) Urine Appearance (Clear) Urine pH (4.6-8.0) Ur Specific Sold[place] (1.005-1.030) Urine Protein (Negative) Urine Glucose (UA) (Negative) mg/dL Urine Ketones (Negative) Urine Blood (Negative) Urine Nitrite (Negative) Urine Bilirubin (Negative) Urine Urobilinogen (0.2) mg/dL Ur Leukocyte Esterase (Negative) U Hyaline Cast (Auto) (0-2) /LPF Urine Microscopic RBC (0-5) /HPF Urine Microscopic WBC (0-5) /HPF Ur Epithelial Cells (None Seen) /HPF Urine Bacteria (None Seen) /HPF Urine Culture Reflexed (NO) 08/31/23 Range/Units 11:02 WBC (4.0-10.5) x10^3/uL RBC (4.1-5.4) x10^6/uL Hgb (12.0-16.0) g/dL Hct (35-47) % MCV (78-100) fL MCH (26-32) pg MCHC (32-36) g/dL RDW (11.5-14.0) % Plt Count (150-450) x10^3/uL MPV (7.5-11.0) fL Sodium (137-145) mmol/L Potassium (3.5-5.1) mmol/L Chloride (98-107) mmol/L Carbon Dioxide (22-30) mmol/L Anion Gap (5-15) MEQ/L BUN (7-17) mg/dL Creatinine (0.52-1.04) mg/dL Estimated GFR ML/MIN Glucose (74-106) mg/dL POC Glucometer 166 H (74 to 106) mg/dL Calcium (8.4-10.2) mg/dL Magnesium (1.6-2.3) mg/dL Total Bilirubin (0.2-1.3) mg/dL AST (14-36) U/L ALT (0-35) U/L Alkaline Phosphatase (38-126) U/L Serum Total Protein (6.3-8.2) g/dL Albumin (3.5-5.0) g/dL Urine Color (Yellow) Urine Appearance (Clear) Urine pH (4.6-8.0) Ur Specific Soldier (1.005-1.030) Urine Protein (Negative) Urine Glucose (UA) (Negative) mg/dL Urine Ketones (Negative) Urine Blood (Negative) Urine Nitrite (Negative) Urine Bilirubin (Negative) Urine Urobilinogen (0.2) mg/dL Ur Leukocyte Esterase (Negative) U Hyaline Cast (Auto) (0-2) /LPF Urine Microscopic RBC (0-5) /HPF Urine Microscopic WBC (0-5) /HPF Ur Epithelial Cells (None Seen) /HPF Urine Bacteria (None Seen) /HPF Urine Culture Reflexed (NO) Radiology Exams: Radiology Procedures Category Date Time Status CHEST 1 VIEW (PORTABLE) Stat Exams 08/30/23 11:23 Completed ECHO W/2D AND DOPPLER [US] Routine Exams 08/30/23 15:33 Taken MODIFIED BARIUM SWALLOW (RAD) [MODIFIED BARIUM SWALLOW Exams 08/31/23 13:00 Completed EXAM] Routine PULMONARY PERF VENTILATION [NUCMED] Routine Exams 08/30/23 07:01 Completed Multi-Disciplinary Progress Notes: Multi-Disciplinary Progress Notes 08/31/23 14:23 OT Plan of Care Note by Sammi Barclay OT Eval OT Inpatient Eval and POC Start: 08/31/23 11:22 Freq: ROUTINE Status: Complete Protocol: Created 08/31/23 11:22 [facility] (Rec: 08/31/23 11:22 [facility] [id number]) Document 08/31/23 14:08 LARS (Rec: 08/31/23 14:23 LARS [id number]) OT Evaluation Subjective Beatrice was agreeable to OT evaluation and provided ADL history. Pertinent Past Medical History depression, anxiety, dementia, Alzheimers, CVA, neuropathy, sleep apnea, HTN, CKD, cataracts, DM type II, COPD, heart murmer, pacemaker/defib, diverticulitis, IBS, abdominal aneurysm, CHF Prior Level of Function Patient admitted for hypoxemic respiratory failure, CHF, and COPD exacerbation PLOF: Patient has 24/7 care at daughter's home, resides on main floor, hospital bed, Rolling walker, manual w/c, and requires assist for all ADLS including feeding/eating, grooming, bathing, dressing, and toileting. Patient is on a thickened liquid diet, but underwent modified barium swallow study with MARKETING PROGRAMS MANAGER (see therapist noted for recommendation), and completes basic transfers with min assist. Nursing staff report that patient has private caregivers other than family. Equipment at Home Prior to Admission Walker,Wheelchair,Raised Toilet Seat Home Setup [id number],Grab Bar Date 08/31/23 Feeding Impaired Comment Max assist (at baseline) Grooming Impaired Comment Max assist (at baseline) Bathing Impaired Comment Max assist (at baseline) Dressing Impaired Comment Max assist (at baseline) Toileting Impaired Comment Max assist (at baseline) Bed Mobility Impaired Comment Mod assist Toilet Transfers Impaired Comment Min assist Functional Transfers Impaired Comment Min assist (Recommend stand- pivot t/fs only) Range of Motion Impaired Comment BUE ROM limitations at shoulder but at baseline Coordination WFL (fine motor) Functional Strength Poor(+) -at baseline Functional Endurance poor(-) at baseline Cognition alert and oriented to name and location Pain no reported pain Objective Data/Standardized Assessment(s Patient presents at baseline ) with all ADLS and functional transfers with CGA for Sit<>Stand t/f and min assist for stand-pivot transfers. Patient resting HR at 60 with 100% o2 sats on 3.5 LPM at rest, HR increases to 66 bpm with stand-pivot t/fs. OT Plan Of Care Date of Evaluation 08/31/23 Treatment Diagnosis hypoxemic respiratory failure, CHF Teaching Recipient Patient Patient is Aware of Diagnosis and Yes Prognosis Patient is receptive to Plan of Care and Yes contributory towards OT goals Discharge Recommendations/Plan OT recommends to return home with family and 01/02 support, no further skilled OT indicated as patient is at baseline with all ADLS. OT recommends w/c mobility with min assist for stand-pivot t/ fs upon return to home. Initialized on 08/31/23 14:23 - END OF NOTE 08/31/23 13:03 Case Management Note by Jenny Sotelo NO CHANGE IN DC PLANS AT THIS TIME- PATIENT TO RETURN HOME WITH FAMILY AT TIME OF DC. PATIENT ALREADY HAS HOME OXYGEN AND 24 HR CARE. C HAS BEEN SET UP Initialized on 08/31/23 13:03 - END OF NOTE <VONDA HOLMAN - Last Filed: 08/31/23 15:12> Vital Signs: Vital Signs - 24 hr Temp Pulse Resp BP Pulse Ox 08/31/23 20:00 97.8 F 74 24 135/74 96 08/31/23 19:00 60 20 98 08/31/23 16:00 97.6 F 67 16 144/67 98 08/31/23 12:37 66 20 98 08/31/23 11:28 97.6 F 75 16 169/77 97 08/31/23 07:14 97.9 F 60 18 144/66 99 08/31/23 06:47 60 21 99 08/31/23 04:00 96.2 F 59 L 16 175/79 99 08/31/23 00:00 61 18 97 08/30/23 23:54 97.8 F 63 16 141/74 98 Pain Assessment - Last Documented Pain Intensity 0 Intake and Output: Intake & Output 08/29/23 08/30/23 08/31/23 09/01/23 11:59 11:59 11:59 11:59 Intake Total 560 2455 960 Output Total 2300 Balance 560 155 960 Weight 93.1 kg 88.4 kg 88.6 kg Lab Results: Lab Results-Last 24 Hours 08/29/23 08/30/23 08/31/23 Range/Units 11:20 21:34 04:28 WBC 12.5 H (4.0-10.5) x10^3/uL RBC 4.53 (4.1-5.4) x10^6/uL Hgb 12.7 (12.0-16.0) g/dL Hct 42.8 (35-47) % MCV 94.5 (78-100) fL MCH 28.0 (26-32) pg MCHC 29.7 L (32-36) g/dL RDW 14.3 H (11.5-14.0) % Plt Count 241 (150-450) x10^3/uL MPV 10.3 (7.5-11.0) fL Sodium (137-145) mmol/L Potassium (3.5-5.1) mmol/L Chloride (98-107) mmol/L Carbon Dioxide (22-30) mmol/L Anion Gap (5-15) MEQ/L BUN (7-17) mg/dL Creatinine (0.52-1.04) mg/dL Estimated GFR ML/MIN Glucose (74-106) mg/dL POC Glucometer 169 H (74 to 106) mg/dL Calcium (8.4-10.2) mg/dL Magnesium (1.6-2.3) mg/dL Total Bilirubin (0.2-1.3) mg/dL AST (14-36) U/L ALT (0-35) U/L Alkaline Phosphatase (38-126) U/L Serum Total Protein (6.3-8.2) g/dL Albumin (3.5-5.0) g/dL Urine Color Yellow (Yellow) Urine Appearance Clear (Clear) Urine pH 6.5 (4.6-8.0) Ur Specific Soldier 1.015 (1.005-1.030) Urine Protein Trace A (Negative) Urine Glucose (UA) Negative (Negative) mg/dL Urine Ketones Negative (Negative) Urine Blood Negative (Negative) Urine Nitrite Negative (Negative) Urine Bilirubin Negative (Negative) Urine Urobilinogen 0.2 (0.2) mg/dL Ur Leukocyte Esterase Negative (Negative) U Hyaline Cast (Auto) NONE SEEN (0-2) /LPF Urine Microscopic RBC 0-2 (0-5) /HPF Urine Microscopic WBC 0-2 (0-5) /HPF Ur Epithelial Cells None Seen (None Seen) /HPF Urine Bacteria None Seen (None Seen) /HPF Urine Culture Reflexed NO (NO) 08/31/23 08/31/23 08/31/23 Range/Units 04:28 07:01 11:02 WBC (4.0-10.5) x10^3/uL RBC (4.1-5.4) x10^6/uL Hgb (12.0-16.0) g/dL Hct (35-47) % MCV (78-100) fL MCH (26-32) pg MCHC (32-36) g/dL RDW (11.5-14.0) % Plt Count (150-450) x10^3/uL MPV (7.5-11.0) fL Sodium 142 (137-145) mmol/L Potassium 4.1 (3.5-5.1) mmol/L Chloride 104 (98-107) mmol/L Carbon Dioxide 29 (22-30) mmol/L Anion Gap 12.0 (5-15) MEQ/L BUN 36 H (7-17) mg/dL Creatinine 1.79 H (0.52-1.04) mg/dL Estimated GFR 27.6 ML/MIN Glucose 223 H (74-106) mg/dL POC Glucometer 195 H 166 H (74 to 106) mg/dL Calcium 9.7 (8.4-10.2) mg/dL Magnesium 2.6 H (1.6-2.3) mg/dL Total Bilirubin 0.40 (0.2-1.3) mg/dL AST 29 (14-36) U/L ALT 18 (0-35) U/L Alkaline Phosphatase 90 (38-126) U/L Serum Total Protein 7.9 (6.3-8.2) g/dL Albumin 4.3 (3.5-5.0) g/dL Urine Color (Yellow) Urine Appearance (Clear) Urine pH (4.6-8.0) Ur Specific Soldier (1.005-1.030) Urine Protein (Negative) Urine Glucose (UA) (Negative) mg/dL Urine Ketones (Negative) Urine Blood (Negative) Urine Nitrite (Negative) Urine Bilirubin (Negative) Urine Urobilinogen (0.2) mg/dL Ur Leukocyte Esterase (Negative) U Hyaline Cast (Auto) (0-2) /LPF Urine Microscopic RBC (0-5) /HPF Urine Microscopic WBC (0-5) /HPF Ur Epithelial Cells (None Seen) /HPF Urine Bacteria (None Seen) /HPF Urine Culture Reflexed (NO) 08/31/23 Range/Units 16:15 WBC (4.0-10.5) x10^3/uL RBC (4.1-5.4) x10^6/uL Hgb (12.0-16.0) g/dL Hct (35-47) % MCV (78-100) fL MCH (26-32) pg MCHC (32-36) g/dL RDW (11.5-14.0) % Plt Count (150-450) x10^3/uL MPV (7.5-11.0) fL Sodium (137-145) mmol/L Potassium (3.5-5.1) mmol/L Chloride (98-107) mmol/L Carbon Dioxide (22-30) mmol/L Anion Gap (5-15) MEQ/L BUN (7-17) mg/dL Creatinine (0.52-1.04) mg/dL Estimated GFR ML/MIN Glucose (74-106) mg/dL POC Glucometer 204 H (74 to 106) mg/dL Calcium (8.4-10.2) mg/dL Magnesium (1.6-2.3) mg/dL Total Bilirubin (0.2-1.3) mg/dL AST (14-36) U/L ALT (0-35) U/L Alkaline Phosphatase (38-126) U/L Serum Total Protein (6.3-8.2) g/dL Albumin (3.5-5.0) g/dL Urine Color (Yellow) Urine Appearance (Clear) Urine pH (4.6-8.0) Ur Specific Soldier (1.005-1.030) Urine Protein (Negative) Urine Glucose (UA) (Negative) mg/dL Urine Ketones (Negative) Urine Blood (Negative) Urine Nitrite (Negative) Urine Bilirubin (Negative) Urine Urobilinogen (0.2) mg/dL Ur Leukocyte Esterase (Negative) U Hyaline Cast (Auto) (0-2) /LPF Urine Microscopic RBC (0-5) /HPF Urine Microscopic WBC (0-5) /HPF Ur Epithelial Cells (None Seen) /HPF Urine Bacteria (None Seen) /HPF Urine Culture Reflexed (NO) Radiology Exams: Radiology Procedures Category Date Time Status CHEST 1 VIEW (PORTABLE) Stat Exams 08/30/23 11:23 Completed ECHO W/2D AND DOPPLER [US] Routine Exams 08/30/23 15:33 Taken MODIFIED BARIUM SWALLOW (RAD) [MODIFIED BARIUM SWALLOW Exams 08/31/23 13:00 Completed EXAM] Routine PULMONARY PERF VENTILATION [NUCMED] Routine Exams 08/30/23 07:01 Completed Multi-Disciplinary Progress Notes: Multi-Disciplinary Progress Notes 08/31/23 15:58 Mod Barium Swallow Note by Lai#[id number],Merly Modified Barium Swallow Study ST Modified Barium Swallow Study Start: 08/31/23 14:37 Freq: Status: Active Protocol: Document 08/31/23 14:38 BM (Rec: 08/31/23 15:17 [id number]) E-Sign 08/31/23 14:38 BM Modified Barium Swallow Reason for Assessment Primary Diagnosis G30.9 - ALZHEIMER'S DISEASE, UNSPECIFIED Primary Diagnosis (cont) I69.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 Onset Date 08/29/22 Date of Evaluation/SOC 08/31/23 Pain Assessment Do you have pain on swallowing No Non-verbal signs & symptoms of pain No Modified Barium Swallow View This evaluation was completed to assess the functioning of the oral and pharyngeal phases of swallowing and to determine if the patient is aspirating or at risk for aspiration. Modified Barium Swallow View Lateral View Consistencies Assessed Barium trials included: Thin Liquid via Spoon,Thin Liquid via Cup,Thin Liquid via Straw,[place] Liquid via Spoon ,Thin Honey Liquid via spoon, Honey Liquid via Spoon,Pudding Liquid via spoon,Pureed Food, Paste on a Cookie Aspiration Risk Aspiration Observed Yes Amount of Aspiration Observed TRACE Patient considered at risk of aspiration Yes during oral intake Patient is at risk for aspiration After the swallow,Before the swallow Severity of Aspiration Risk Moderate Penetration into Laryngeal Vestibule Yes Penetration occured with [place] Thick Liquid,Thin Honey Consistency,Thin Liquid Reason for aspirational risk: PATIENT AT RISK FOR ASPIRATION PRIOR TO SWALLOW INITIATION DUE TO PREMATURE SPILLAGE TO VALLECULAE PRIOR TO SWALLOW INITIATION, WELL DECREASED BOLUS CONTROL WITH THIN AND NTL BARIUM. PATIENT AT RISK FOR ASPIRATION AFTER THE SWALLOW DUE TO RESIDUE REMAINING IN LARYNGEAL /PHARYNGEAL RECESSES FOLLOWING SWALLOW COMPLETION. 8-Point Penetration-Aspiration Scale (Rosenbek) 2.Material enters the airway,remains Yes above the vocal folds and IS ejected from the airway 8.Material enters the airway,passes Yes below the vocal folds and NO effort is made to eject. Consistency Thin,[place] Thick Method of presentation Teaspoon,Straw Comment: (8) TRACE ASPIRATION OCCURRED WITH NTL RESIDUE REMAINING AFTER SWALLOW INITIATION, NO COUGH ELICITED. (2) TRACE TO MIN. AMOUNT OF BARIUM ENTERED THE AIRWAY, REMAINED ABOVE THE VOCAL FOLD AND WAS EJECTED FROM THE AIRWAY WITH THIN AND THIN HONEY CONSISTENCY BARIUM. Residue/Retention Residue Observed Valleculae Right,Valleculae Left,Pyriform Sinus Right, Pyriform Sinus Left Esophageal Function No Impairment (WFL) Other UNABLE TO FULLY ASSESS ESOPHAGEAL FUNCTION DURING THIS MBS STUDY DUE TO MOVEMENT LIMITATIONS OF EQUIPMENT UTILIZED. Assessment of Swallow Phases Oral Phase Labial Closure No Impairment (WFL) Bolus Formation No Bolus Control Pooling L/R No Impairment (WFL) Bolus Control under Tongue No Impairment (WFL) Bolus Control Scattered Loss No Impairment (WFL) Mastication Effectiveness Mild Impairment A/P Bolus Propulsion No Impairment (WFL) Premature Spillage into: Valleculae A/P Lingual Propulsion Delay Mild Impairment A/P Lingual Propulsion Delay (sec) 2 Lingual Movement No Impairment (WFL) Residue Clearing/Sensitivity Mild Impairment Aspiration No Swallow Initiation Delay Mild Impairment Swallow Delay Time (sec) 1 Other Oral Phase Observations PATIENT WITH MILD TO MODERATE ORAL PHASE DYSPHAGIA WITH DEFICITS IN SWALLOW INITIATION , RESIDUE CLEARING, PREMATURE SPILLAGE INTO VALLECULAE, AND A/P BOLUS PROPULSION DELAY. Pharyngeal Phase Base of Tongue Retraction Mild Impairment Epiglottic Coverage No Impairment (WFL) Laryngeal Elevation No Impairment (WFL) Reduced Anterior Laryngeal Movement No Laryngeal Closure Mild Impairment Vallecular Retention Clearing Mild Impairment Pharyn. Wall Residue Clearing Minimal Impairment Pyriform Sinus Retention Minimal Impairment Penetration Yes Aspiration Yes Cricopharyngeal Dysfunction No Cough None Other Pharyngeal Phase Observation PATIENT DEMONSTRATED PENETRATION OF LARYNGEAL VESTIBULE WITHOUT ASPIRATION DUE TO DELAYED SWALLOW INITIATION WITH PREMATURE SPILLAGE WITH THIN LIQUID AND THIN HONEY CONSISTENCY BARIUM. TRACE ASPIRATION OCCURRED WITH NECTAR THICK LIQUID BARIUM WITH DEFICIT IN TIMING AND COORDINATION OF LARYNGEAL VESTIBULE CLOSURE. Clinical Interpretation Clinical Interpretation PATIENT PRESENTS WITH MODERATE VÍCTOR-PHARYNGEAL DYSPHAGIA WITH ASPIRATION. Speech Therapy Teaching Record Teaching Summary Results/Recommendations Learning Preferences Discussion Barriers to Learning Auditory,Age related Readiness for Learning Accepting Teaching Methods Discussion Teaching Recipient Patient,Primary Caregiver, Family Response to Teaching Verbalize understanding ST Recommendations Diet Consistency Pureed Liquid Consistency Honey Comment RECOMMEND USE OF HONEY THICK LIQUID CONSISTENCY TO DECREASE RISK OF ASPIRATION. Follow-Up Primary Physician regarding findings/ Yes recommendations Safe Swallow Compensatory Strategies Compensatory Strategies Upright Position for all meals ,Remain upright after meals, Small bites and drinks, Alternate solids/liquids, Thicken Liquids (see consistency above) Medication Instructions Per Patient Preference Staff/Family Suggestions Oral Care after Meals,Direct supervision/assistance with all meals Additional Comments: PATIENT PLEASANT AND COOPERATIVE THROUGHOUT MBS STUDY. Signatures Speech Therapist Signature DEVEN, MS, CCC/MARKETING PROGRAMS MANAGER Physician Signature DR Leroy PEREZ, RADIOLOGIST Initialized on 08/31/23 15:58 - END OF NOTE 08/31/23 14:23 OT Plan of Care Note by Sammi Barclay OT Eval OT Inpatient Eval and POC Start: 08/31/23 11:22 Freq: ROUTINE Status: Complete Protocol: Created 08/31/23 11:22 [facility] (Rec: 08/31/23 11:22 [facility] [id number]) Document 08/31/23 14:08 LARS (Rec: 08/31/23 14:23 [id number]) OT Evaluation Subjective Beatrice was agreeable to OT evaluation and provided ADL history. Pertinent Past Medical History depression, anxiety, dementia, Alzheimers, CVA, neuropathy, sleep apnea, HTN, CKD, cataracts, DM type II, COPD, heart murmer, pacemaker/defib, diverticulitis, IBS, abdominal aneurysm, CHF Prior Level of Function Patient admitted for hypoxemic respiratory failure, CHF, and COPD exacerbation PLOF: Patient has 01/02 care at daughter's home, resides on main floor, hospital bed, Rolling walker, manual w/c, and requires assist for all ADLS including feeding/eating, grooming, bathing, dressing, and toileting. Patient is on a thickened liquid diet, but underwent modified barium swallow study with MARKETING PROGRAMS MANAGER (see therapist noted for recommendation), and completes basic transfers with min assist. Nursing staff report that patient has private caregivers other than family. Equipment at Home Prior to Admission Walker,Wheelchair,Raised Toilet Seat Home Setup [id number],Grab Bar Date 08/31/23 Feeding Impaired Comment Max assist (at baseline) Grooming Impaired Comment Max assist (at baseline) Bathing Impaired Comment Max assist (at baseline) Dressing Impaired Comment Max assist (at baseline) Toileting Impaired Comment Max assist (at baseline) Bed Mobility Impaired Comment Mod assist Toilet Transfers Impaired Comment Min assist Functional Transfers Impaired Comment Min assist (Recommend stand- pivot t/fs only) Range of Motion Impaired Comment BUE ROM limitations at shoulder but at baseline Coordination WFL (fine motor) Functional Strength Poor(+) -at baseline Functional Endurance poor(-) at baseline Cognition alert and oriented to name and location Pain no reported pain Objective Data/Standardized Assessment(s Patient presents at baseline ) with all ADLS and functional transfers with CGA for Sit<>Stand t/f and min assist for stand-pivot transfers. Patient resting HR at 60 with 100% o2 sats on 3.5 LPM at rest, HR increases to 66 bpm with stand-pivot t/fs. OT Plan Of Care Date of Evaluation 08/31/23 Treatment Diagnosis hypoxemic respiratory failure, CHF Teaching Recipient Patient Patient is Aware of Diagnosis and Yes Prognosis Patient is receptive to Plan of Care and Yes contributory towards OT goals Discharge Recommendations/Plan OT recommends to return home with family and 01/02 support, no further skilled OT indicated as patient is at baseline with all ADLS. OT recommends w/c mobility with min assist for stand-pivot t/ fs upon return to home. Initialized on 08/31/23 14:23 - END OF NOTE 08/31/23 13:03 Case Management Note by Jenny Sotelo NO CHANGE IN DC PLANS AT THIS TIME- PATIENT TO RETURN HOME WITH FAMILY AT TIME OF DC. PATIENT ALREADY HAS HOME OXYGEN AND 24 HR CARE. C HAS BEEN SET UP Initialized on 08/31/23 13:03 - END OF NOTE <SHOLA JOHNSON - Last Filed: 08/31/23 20:12> Assessment/Plan (1) COPD exacerbation Current Visit: Yes Status: Acute Code(s): J44.1 - CHRONIC OBSTRUCTIVE PULMONARY DISEASE W (ACUTE) EXACERBATION (2) CHF (congestive heart failure) Current Visit: Yes Status: Acute Qualifiers: Heart failure type: combined systolic and diastolic Code(s): I50.9 - HEART FAILURE, UNSPECIFIED (3) Abdominal distention Current Visit: Yes Status: Acute Code(s): R14.0 - ABDOMINAL DISTENSION (GASEOUS) (4) Type II diabetes mellitus Current Visit: Yes Status: Chronic Qualifiers: Diabetes mellitus buttermaker continuous churn insulin use: with senior living use Diabetes mellitus complication status: with circulatory complication (5) Depression with anxiety Current Visit: Yes Status: Chronic Code(s): F41.8 - OTHER SPECIFIED ANXIETY DISORDERS (6) Dementia in Alzheimer's disease Current Visit: Yes Status: Chronic Code(s): G30.9 - ALZHEIMER'S DISEASE, UNSPECIFIED; F02.80 - DEM IN OTH DIS CLASSD ELSWHR,UNSP SEV,W/O BEH/PSYCH /MOOD/ANX (7) Acute on chronic kidney failure Current Visit: No Status: Acute Code(s): N17.9 - ACUTE KIDNEY FAILURE, UNSPECIFIED; N18.9 - CHRONIC KIDNEY DISEASE, UNSPECIFIED (8) Hypertension Current Visit: No Status: Chronic Qualifiers: Hypertension type: essential hypertension Code(s): I10 - ESSENTIAL (PRIMARY) HYPERTENSION (9) Sleep apnea Current Visit: No Status: Chronic Code(s): G47.30 - SLEEP APNEA, UNSPECIFIED (10) Elevated d-dimer Current Visit: Yes Status: Acute Code(s): R79.89 - OTHER SPECIFIED ABNORMAL FINDINGS OF BLOOD CHEMISTRY (11) Hypermagnesemia Current Visit: Yes Status: Acute Code(s): E83.41 - HYPERMAGNESEMIA (12) Aspiration pneumonia Current Visit: Yes Status: Acute Assessment & Plan: (1) COPD exacerbation Current Visit: Yes Status: Acute Assessment & Plan: - ceftriaxone started in the ER - On Bipap- O2 99% - baseline is Bipap midnight to 1300 the next day per daughter - RT evaluated bipap machine and found it to be working correctly. - F/U OP with Pulm - solumedrol, duonebs - Continue home trelegy - Flu/ COvid/ RSV negative 08/31 - change IV to oral antibiotics - decrease steroids Code(s): J44.1 - CHRONIC OBSTRUCTIVE PULMONARY DISEASE W (ACUTE) EXACERBATION (2) CHF (congestive heart failure) Current Visit: Yes Status: Acute Qualifiers: Heart failure type: combined systolic and diastolic Assessment & Plan: - BNP 862 - Lasix 20mg BID - Ok to use home purewick per rooming house inspector. - will need checked by maintenance - Echo ordered for 08/30- unable to do on the weekend- pending - Cardiology , murmur - Echo from 03/01/19 The M-mode 2D, and Doppler echocardiogram including color flow Doppler shows the left ventricle is normal in size at 4.6 cm. The septal wall thickness is increased at 1.3 cm. The left ventricular posterior wall thickness is increased at 1.2 cm. There is no thrombus noted. There is normal contractility of the left ventricle with the ejection fraction calculated to be 62%. The mitral valve E to A inflow velocity ratio is decreased at 0.9 consistent with impaired left ventricular relaxation. The right ventricle is grossly normal. The left atrium is normal being 3.6 cm. The interatrial septum is intact. The right atrium is normal. The aortic valve is sclerotic with some decreased leaflet motion. The peak gradient is 32 mm of Mercury. There is mild aortic valvular stenosis. There is no aortic regurgitation present. There is mitral valve leaflet thickening associated with mild mitral regurgitation. There is mild to moderate tricuspid regurgitation. There is mild pulmonic regurgitation. The aortic root is normal at 3.4 cm. There is no pericardial effusion present. There is moderate pulmonary hypertension with a right ventricular systolic pressure calculated to be 41 mm of Mercury. IMPRESSION: 1) Normal contractility of the left ventricle. 2) MILD CONCENTRIC left ventricular hypertrophy. 3) EVIDENCE OF IMPAIRED left ventricULAR RELAXATION. 4) MILD AORTIC STENOSIS. 5) MILD mitral regurgitation. 6) MILD TO MODERATE tricuspid regurgitation. 7) MODERATE PULMONARY hypertension. 8) MILD PULMONIC regurgitation. 08/31 - Stop IV lasix d/t elyse Code(s): I50.9 - HEART FAILURE, UNSPECIFIED (3) Abdominal distention Current Visit: Yes Status: Acute Assessment & Plan: - KUB pending - Colace BID - UA 08/30 - BM x1 last night - KUB 08/29 KUB demonstrates mild distended small and large bowel loops with mild rectal impaction. No focal bowel dilatation/infection or free air. Solid organs unremarkable. Extensive vascular calcifications. Osseous structures intact with osteopenia and mild degenerative changes. 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 Current Visit: Yes Status: Chronic Assessment & Plan: - Continue home meds Code(s): G30.9 - ALZHEIMER'S DISEASE, UNSPECIFIED; F02.80 - DEM IN OTH DIS CLASSD ELSWHR,UNSP SEV,W/O BEH/PSYCH/MOOD/ANX (7) Acute on chronic kidney failure Current Visit: No Status: Acute Assessment & Plan: - Creat 1.60- baseline1.46- near baseline - IVF started in ER- stopped d/t CHF 08/30 - Creat 1.63- is getting IV lasix 08/31 - Creat 1.79 - Stop IV lasix Code(s): N17.9 - ACUTE KIDNEY FAILURE, UNSPECIFIED; N18.9 - CHRONIC KIDNEY DISEASE, UNSPECIFIED (8) Hypertension Current Visit: No Status: Chronic Qualifiers: Hypertension type: essential hypertension Assessment & Plan: - stable - continue home meds Code(s): I10 - ESSENTIAL (PRIMARY) HYPERTENSION (9) Sleep apnea Current Visit: No Status: Chronic Assessment & Plan: - Cpap/bipap at noc - Not compliant at home. Code(s): G47.30 - SLEEP APNEA, UNSPECIFIED (10) Elevated d-dimer Current Visit: Yes Status: Acute Assessment & Plan: - D-dimer 1.39 - May be r/t COPD exacerbation - Unable to do CT at this time - order VQ scan tomorrow- unable to do on the weekend 08/30 - VQ scan negative for PE Code(s): R79.89 - OTHER SPECIFIED ABNORMAL FINDINGS OF BLOOD CHEMISTRY (11) Hypermagnesemia Current Visit: Yes Status: Acute Assessment & Plan: - Mg+ 2.4 - Lasix IV for CHF - monitor 08/30 - Mg+ 2.4- monitor -08/31 - Mg+ 2.6 Code(s): E83.41 - HYPERMAGNESEMIA (12) Aspiration pneumonia Current Visit: Yes Status: Acute Assessment & Plan: - Zosyn started - Steroids, duonebs - Procal 0.097 - ST eval - BC X2 - Chest XR 08/29 Portable chest is now underinflated accentuating cardiopulmonary structures. Worsening mild left base infiltrate/atelectasis with stable right base infiltrate/atelectasis. Heart remains borderline enlarged again with tortuous/ectatic descending aorta and left pacemaker. Bony thorax intact again with osteopenia and degenerative changes. Code(s): J69.0 - PNEUMONITIS DUE TO INHALATION OF FOOD AND VOMIT VTE: Eliquis PPI: pantoprazole Next of Kin: daughter Glenna D/C plan: tomorrow Code status: Full Code(s): J69.0 - PNEUMONITIS DUE TO INHALATION OF FOOD AND VOMIT <VNODA HOLMAN - Last Filed: 08/31/23 15:12>
[2023-08-31] MEDS: DELTASONE 20 MG PO SCH (23:16)
[2023-09-01 04:35] LABS: Hematocrit 36.2 % (35-47); Hemoglobin 10.9 g/dL (12.0-16.0); Mean Cell Volume 93.1 fL (78-100); Mean Corpuscular Hgb Concent. 30.1 g/dL (32-36); Mean Platelet Volume 10.1 fL (7.5-11.0); Platelet Count 209 x10^3/uL (150-450); Red Blood Count 3.89 x10^6/uL (4.1-5.4); Red Cell Distribution Width 14.5 % (11.5-14.0); White Blood Count 7.8 x10^3/uL (4.0-10.5)
[2023-09-01 04:54] LABS: ALBUMIN 3.6 g/dL (3.5-5.0); ANION GAP 8.1 MEQ/L (5-15); BILIRUBIN,TOTAL 0.4 mg/dL (0.2-1.3); Calcium 9.2 mg/dL (8.4-10.2); Creatinine 1 1.74 mg/dL (0.52-1.04); EST GLOMERULAR FILTRATION RATE 28.6 ML/MIN; Potassium 4.2 mmol/L (3.5-5.1); Total Protein 6.7 g/dL (6.3-8.2)
[2023-09-01 11:25] VITALS: BP 158/78; TEMP 96.8; O2SAT 98
[2023-09-01 13:00] VITALS: PULSE 62; RESP 18
--- NOTE | 2023-09-01 13:52 | PCM.DS ---
Discharge Summary Date of Admission: 08/29/23 15:25 Date of Discharge: 09/01/23 Admitting Physician: SHOLA JOHNSON MD Primary Care Provider: JANNETTE YADAV LORI Allergies Allergies carvedilol Allergy (Verified 08/29/23 10:18) Hospital Summary - Hospital Course Hospital Course: 08/29/23 is a 83 year old female with pmhx of depression, anxiety, dementia, Alzheimer's disease, stroke ( on eliquis), peripheral neuropathy, sleep apnea, HTN, CKD, cataracts, obesity, TYpe II DM, COPD, heart murmur, pacemaker/ defib, diverticulitis, IBS, ventriculars arrythmias,history of infrarenal 7 cm abdominal aneurysm, and CHF (severe combined systolic and diastolic). She came into the ER today by EMS due to having worsening shortness of breath since this morning. Patient is using BiPAP at home but it appears that it does did not work and her oxygen saturations were in low 70s. 911 was called and EMS went to her home where they have a hard time keeping her oxygen saturation up so they brought her into the emergency room. In the emergency room patient came with the BiPAP which was showing oxygen saturation around 100%. Patient is unable to answer other questions due to severe shortness of breath. Patient is also complaining of abdominal distention. Her daughter came with her today to the hospital and is providing information. She was started on ceftriaxone in ER and IV fluids started for COPD exacerbation. CXR and KUB pending. Will continue antibiotics and start steroids and duonebs for COPD exacerbation. Lasix 20mg BID started for CHF exacerbation. IVF stopped. 08/30/23 Pt resting in bed. She is very AFOGNAK. Daughter explains she is worse AFOGNAK than usual. Awaiting to see if pt will be able to do VQ scan today to eval for elevated d-dimer. ST eval placed as she may has aspiration pneumonia according to CXR. She has a hx of swallowing concerns and normally is on pureed diet with honey thick liquids. UA pending. Started Zosyn for pneumonia. Continue lasix for CHF. Daughter reports she was recently off of Eliquis for 7 days for a bronch then restarted. This was last week. She denies any further concerns at this time. 08/31/23 Pt resting in bed. She is feeling much better today. She had her modified barium swallow eval today with ST and she feels pt can stay on same diet from home based on results. Awaiting PT eval for home needs. Lasix held today for ELYSE. Steroids decreased and antibiotics changed to oral in preparation for home d/c tomorrow. Pt denies CP, SOB, abd. pain, N/V/D. 09/01/23 Pt resting in bed. Labs have improved. Will d/c with antibiotics and steroids. No further concerns at this time. - Vitals & Intake/Output Vital Signs: Vital Signs Temperature 96.8 F 09/01/23 11:24 Pulse Rate 62 09/01/23 12:53 Respiratory Rate 18 09/01/23 12:53 Blood Pressure 158/78 09/01/23 11:24 O2 Sat by Pulse Oximetry 98 09/01/23 12:53 Intake & Output: Intake & Output 08/30/23 08/31/23 09/01/23 09/02/23 11:59 11:59 11:59 11:59 Intake Total 560 2455 1040 580 Output Total 2300 Balance 290 249 5804 580 Weight 88.4 kg 88.6 kg 89.2 kg - Lab Result Diagrams: 09/01/23 04:00 09/01/23 04:00 Lab Results-Last 24 Hrs: Lab Results-Last 24 Hours 08/31/23 08/31/23 09/01/23 Range/Units 16:15 21:00 04:00 WBC 7.8 (4.0-10.5) x10^3/uL RBC 3.89 L (4.1-5.4) x10^6/uL Hgb 10.9 L (12.0-16.0) g/dL Hct 36.2 (35-47) % MCV 93.1 (78-100) fL MCH 28.0 (26-32) pg MCHC 30.1 L (32-36) g/dL RDW 14.5 H (11.5-14.0) % Plt Count 209 (150-450) x10^3/uL MPV 10.1 (7.5-11.0) fL Sodium (137-145) mmol/L Potassium (3.5-5.1) mmol/L Chloride (98-107) mmol/L Carbon Dioxide (22-30) mmol/L Anion Gap (5-15) MEQ/L BUN (7-17) mg/dL Creatinine (0.52-1.04) mg/dL Estimated GFR ML/MIN Glucose (74-106) mg/dL POC Glucometer 204 H 128 H (74 to 106) mg/dL Calcium (8.4-10.2) mg/dL Magnesium (1.6-2.3) mg/dL Total Bilirubin (0.2-1.3) mg/dL AST (14-36) U/L ALT (0-35) U/L Alkaline Phosphatase (38-126) U/L Serum Total Protein (6.3-8.2) g/dL Albumin (3.5-5.0) g/dL 09/01/23 09/01/23 09/01/23 Range/Units 04:00 04:00 06:28 WBC (4.0-10.5) x10^3/uL RBC (4.1-5.4) x10^6/uL Hgb (12.0-16.0) g/dL Hct (35-47) % MCV (78-100) fL MCH (26-32) pg MCHC (32-36) g/dL RDW (11.5-14.0) % Plt Count (150-450) x10^3/uL MPV (7.5-11.0) fL Sodium 140 (137-145) mmol/L Potassium 4.2 (3.5-5.1) mmol/L Chloride 106 (98-107) mmol/L Carbon Dioxide 31 H (22-30) mmol/L Anion Gap 8.1 (5-15) MEQ/L BUN 34 H (7-17) mg/dL Creatinine 1.74 H (0.52-1.04) mg/dL Estimated GFR 28.6 ML/MIN Glucose 154 H (74-106) mg/dL POC Glucometer 177 H (74 to 106) mg/dL Calcium 9.2 (8.4-10.2) mg/dL Magnesium 2.3 (1.6-2.3) mg/dL Total Bilirubin 0.40 (0.2-1.3) mg/dL AST 20 (14-36) U/L ALT 16 (0-35) U/L Alkaline Phosphatase 74 (38-126) U/L Serum Total Protein 6.7 (6.3-8.2) g/dL Albumin 3.6 (3.5-5.0) g/dL 09/01/23 Range/Units 11:13 WBC (4.0-10.5) x10^3/uL RBC (4.1-5.4) x10^6/uL Hgb (12.0-16.0) g/dL Hct (35-47) % MCV (78-100) fL MCH (26-32) pg MCHC (32-36) g/dL RDW (11.5-14.0) % Plt Count (150-450) x10^3/uL MPV (7.5-11.0) fL Sodium (137-145) mmol/L Potassium (3.5-5.1) mmol/L Chloride (98-107) mmol/L Carbon Dioxide (22-30) mmol/L Anion Gap (5-15) MEQ/L BUN (7-17) mg/dL Creatinine (0.52-1.04) mg/dL Estimated GFR ML/MIN Glucose (74-106) mg/dL POC Glucometer 177 H (74 to 106) mg/dL Calcium (8.4-10.2) mg/dL Magnesium (1.6-2.3) mg/dL Total Bilirubin (0.2-1.3) mg/dL AST (14-36) U/L ALT (0-35) U/L Alkaline Phosphatase (38-126) U/L Serum Total Protein (6.3-8.2) g/dL Albumin (3.5-5.0) g/dL Micro Results-Entire Visit: Microbiology 08/30/23 15:35 Blood Culture - Preliminary Blood 08/30/23 15:05 Blood Culture - Preliminary Blood Accuchecks Date 09/01/23 Date 09/01/23 Date 08/31/23 Date 08/31/23 Time 11:24 Time 06:56 Time 21:00 Time 16:27 - Radiology Exams Ordered Rad Exams-Entire Visit: Radiology Procedures Category Date Time Status ECHO W/2D AND DOPPLER [US] Routine Exams 08/30/23 15:33 Taken MODIFIED BARIUM SWALLOW (RAD) [MODIFIED BARIUM SWALLOW Exams 08/31/23 13:00 Completed EXAM] Routine - Procedures and Test Procedures and Tests throughout Hospitalization: Therapy Orders & Screens 08/29/23 10:15 BiPap/CPAP ROUTINE Comment: 08/29/23 14:28 Respiratory Therapy Consult ONCE Comment: Reason For Exam: 08/29/23 16:04 RT Miscellaneous Order ROUTINE Comment: Physician Instructions: Reason For Exam: cpap/bipap at night for sleep apnea Diagnosis: Hypoxemic respiratory failure, CHF 08/29/23 16:29 PT Screen per Nursing Assess ONCE Comment: Protocol Order Physician Instructions: Greater than 3 points order PT Admission Screenin Reason For Exam: Triggered on Admission Diagnosis: Hypoxemic respiratory failure, CHF Open Wound/Cellutlitis/Pressure Ulcers: No Acute Fx/ORIF/Change in wt bearing status: No Severe MUSCULOSKELETAL pain: No ADL Dysfunction: Yes Acute CVA w/Hemiparesis/Hemiplegia: No Decreased Functional Mobility/Strength: Yes Sprain/Strain: No Acute Post-op Mobility Dysfunction: No Total Points: 4 RT Screen per Nursing Assess ONCE Comment: Protocol Order Physician Instructions: Greater than 3 points order RT Admission Screen Reason For Exam: Triggered on Admission Diagnosis: Hypoxemic respiratory failure, CHF Diagnosis: Hypoxemic respiratory failure, CHF Pneumonia: No Home O2: Yes Asthma: No CHF: Yes Home CPAP/BIPAP: Yes Home Nebs/MDI: Yes Total Points: 18 08/29/23 16:56 Oxygen Nasal Cannula 4 lpm Comment: Diagnosis: Hypoxemic respiratory failure, CHF 08/29/23 19:06 Respiratory Therapy Assessment DAILY Comment: Diagnosis: Hypoxemic respiratory failure, CHF 08/30/23 07:03 Speech Therapy Eval & Treat [ST Eval & Treat (MD Order)] .as ordered Comment: Physician Instructions: Reason For Exam: Evaluate: Yes Treat: Yes Reason for Eval: possible aspiration Diagnosis: Hypoxemic respiratory failure, CHF 08/30/23 11:05 OT Screen per Nursing Assess ONCE Comment: Protocol Order Physician Instructions: Greater than 3 points order OT Admission Screening Reason For Exam: Triggered on Admission Diagnosis: Hypoxemic respiratory failure, CHF Open Wound/Cellutlitis/Pressure Ulcers: No Acute Fx/ORIF/Change in wt bearing status: No Severe MUSCULOSKELETAL pain: No ADL Dysfunction: Yes Acute CVA w/Hemiparesis/Hemiplegia: No Decreased Functional Mobility/Strength: Yes Sprain/Strain: No Acute Post-op Mobility Dysfunction: No Total Points: 4 ST Screen per Nursing Assess ONCE Comment: Protocol Order Physician Instructions: Greater than [address] Admission Screening Reason For Exam: Triggered on Admission Diagnosis: Hypoxemic respiratory failure, CHF CVA/Dyshpagia/Aphasia: No Cognitive Deficits: No Dehydration/Nutrition Deficit: No Reflux: No Oral-Motor Difficulties: No: BASELINE Pneumonia: Yes Fdc Resident: No Total Points: 5 08/31/23 11:22 OT Eval and Treat (MD Order) ROUTINE Comment: Physician Instructions: Reason For Exam: Diagnosis: Hypoxemic respiratory failure, CHF 08/31/23 23:38 Respiratory MDI BID Comment: Diagnosis: Hypoxemic respiratory failure, CHF Discharge Exam General Appearance: no apparent distress, alert Neurologic Exam: alert, oriented x 3, cooperative, normal mood/affect, nml cerebellar function, sensation nml, No motor deficits Eye Exam: PERRL, EOMI, eyes nml inspection Ears, Nose, Throat Exam: normal ENT inspection, pharynx normal, moist mucous membranes Neck Exam: normal inspection, non-tender, supple, full range of motion Respiratory Exam: normal breath sounds, lungs clear, No respiratory distress Cardiovascular Exam: regular rate/rhythm, normal heart sounds Gastrointestinal/Abdomen Exam: soft, No tenderness, No mass Pelvic Exam: deferred Rectal Exam: deferred Back Exam: normal inspection, normal range of motion, No CVA tenderness, No vertebral tenderness Extremity Exam: normal inspection, normal range of motion Skin Exam: normal color, warm, dry Final Diagnosis/Problem List - Final Discharge Diagnosis/Problem (1) COPD exacerbation Current Visit: Yes Status: Acute Code(s): J44.1 - CHRONIC OBSTRUCTIVE PULMONARY DISEASE W (ACUTE) EXACERBATION (2) CHF (congestive heart failure) Current Visit: Yes Status: Acute Code(s): I50.9 - HEART FAILURE, UNSPECIFIED (3) Abdominal distention Current Visit: Yes Status: Acute Code(s): R14.0 - ABDOMINAL DISTENSION (GASEOUS) (4) Type II diabetes mellitus Current Visit: Yes Status: Chronic (5) Depression with anxiety Current Visit: Yes Status: Chronic Code(s): F41.8 - OTHER SPECIFIED ANXIETY DISORDERS (6) Dementia in Alzheimer's disease Current Visit: Yes Status: Chronic Code(s): G30.9 - ALZHEIMER'S DISEASE, UNSPECIFIED; F02.80 - DEM IN OTH DIS CLASSD ELSWHR,UNSP SEV,W/O BEH/PSYCH/MOOD/ANX (7) Acute on chronic kidney failure Current Visit: No Status: Acute Code(s): N17.9 - ACUTE KIDNEY FAILURE, UNSPECIFIED; N18.9 - CHRONIC KIDNEY DISEASE, UNSPECIFIED (8) Hypertension Current Visit: No Status: Chronic Code(s): I10 - ESSENTIAL (PRIMARY) HYPERTENSION (9) Sleep apnea Current Visit: No Status: Chronic Code(s): G47.30 - SLEEP APNEA, UNSPECIFIED (10) Elevated d-dimer Current Visit: Yes Status: Acute Code(s): R79.89 - OTHER SPECIFIED ABNORMAL FINDINGS OF BLOOD CHEMISTRY (11) Hypermagnesemia Current Visit: Yes Status: Acute Code(s): E83.41 - HYPERMAGNESEMIA (12) Aspiration pneumonia Current Visit: Yes Status: Acute Assessment & Plan: (1) COPD exacerbation Current Visit: Yes Status: Acute Assessment & Plan: - ceftriaxone started in the ER - On Bipap- O2 99% - baseline is Bipap midnight to 1300 the next day per daughter - RT evaluated bipap machine and found it to be working correctly. 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 - will need checked by maintenance - Echo ordered for 08/30- unable to do on the weekend- pending - Cardiology , murmur - Echo from 03/01/19 The M-mode 2D, and Doppler echocardiogram including color flow Doppler shows the left ventricle is normal in size at 4.6 cm. The septal wall thickness is increased at 1.3 cm. The left ventricular posterior wall thickness is increased at 1.2 cm. There is no thrombus noted. There is normal contractility of the left ventricle with the ejection fraction calculated to be 62%. The mitral valve E to A inflow velocity ratio is decreased at 0.9 consistent with impaired left ventricular relaxation. The right ventricle is grossly normal. The left atrium is normal being 3.6 cm. The interatrial septum is intact. The right atrium is normal. The aortic valve is sclerotic with some decreased leaflet motion. The peak gradient is 32 mm of Mercury. There is mild aortic valvular stenosis. There is no aortic regurgitation present. There is mitral valve leaflet thickening associated with mild mitral regurgitation. There is mild to moderate tricuspid regurgitation. There is mild pulmonic regurgitation. The aortic root is normal at 3.4 cm. There is no pericardial effusion present. There is moderate pulmonary hypertension with a right ventricular systolic pressure calculated to be 41 mm of Mercury. IMPRESSION: 1) Normal contractility of the left ventricle. 2) MILD CONCENTRIC left ventricular hypertrophy. 3) EVIDENCE OF IMPAIRED left ventricULAR RELAXATION. 4) MILD AORTIC STENOSIS. 5) MILD mitral regurgitation. 6) MILD TO MODERATE tricuspid regurgitation. 7) MODERATE PULMONARY hypertension. 8) MILD PULMONIC regurgitation. 08/31 - Stop IV lasix d/t elyse Code(s): I50.9 - HEART FAILURE, UNSPECIFIED (3) Abdominal distention Current Visit: Yes Status: Acute Assessment & Plan: - KUB pending - Colace BID - UA 08/30 - BM x1 last night - KUB 08/29 KUB demonstrates mild distended small and large bowel loops with mild rectal impaction. No focal bowel dilatation/infection or free air. Solid organs unremarkable. Extensive vascular calcifications. Osseous structures intact with osteopenia and mild degenerative changes. 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 Diabetes mellitus complication status: with circulatory complication Assessment & Plan: - A1C - accuchecks ac./hs, humalog s/s, lantus - const carb diet - A1C 11/28/22 6.73- controlled (5) Depression with anxiety Current Visit: Yes Status: Chronic Assessment & Plan: - Continue home meds Code(s): F41.8 - OTHER SPECIFIED ANXIETY DISORDERS (6) Dementia in Alzheimer's disease Current Visit: Yes Status: Chronic Assessment & Plan: - Continue home meds Code(s): G30.9 - ALZHEIMER'S DISEASE, UNSPECIFIED; F02.80 - DEM IN OTH DIS CLASSD ELSWHR,UNSP SEV,W/O BEH/PSYCH/MOOD/ANX (7) Acute on chronic kidney failure Current Visit: No Status: Acute Assessment & Plan: - Creat 1.60- baseline1.46- near baseline - IVF started in ER- stopped d/t CHF 08/30 - Creat 1.63- is getting IV lasix 08/31 - Creat 1.79 - Stop IV lasix 09/01 - creat 1.74 - F/u with PCP and nephro OP Code(s): N17.9 - ACUTE KIDNEY FAILURE, UNSPECIFIED; N18.9 - CHRONIC KIDNEY DISEASE, UNSPECIFIED (8) Hypertension Current Visit: No Status: Chronic Qualifiers: Hypertension type: essential hypertension Assessment & Plan: - stable - continue home meds Code(s): I10 - ESSENTIAL (PRIMARY) HYPERTENSION (9) Sleep apnea Current Visit: No Status: Chronic Assessment & Plan: - Cpap/bipap at noc - Not compliant at home. Code(s): G47.30 - SLEEP APNEA, UNSPECIFIED (10) Elevated d-dimer Current Visit: Yes Status: Acute Assessment & Plan: - D-dimer 1.39 - May be r/t COPD exacerbation - Unable to do CT at this time - order VQ scan tomorrow- unable to do on the weekend 08/30 - VQ scan negative for PE Code(s): R79.89 - OTHER SPECIFIED ABNORMAL FINDINGS OF BLOOD CHEMISTRY (11) Hypermagnesemia Current Visit: Yes Status: Acute Assessment & Plan: - Mg+ 2.4 - Lasix IV for CHF - monitor 08/30 - Mg+ 2.4- monitor -08/31 - Mg+ 2.6 09/01 - resolved Code(s): E83.41 - HYPERMAGNESEMIA (12) Aspiration pneumonia Current Visit: Yes Status: Acute Assessment & Plan: - Zosyn started - Steroids, duonebs - Procal 0.097 - ST eval - BC X2 - Chest XR 08/29 Portable chest is now underinflated accentuating cardiopulmonary structures. Worsening mild left base infiltrate/atelectasis with stable right base infiltrate/atelectasis. Heart remains borderline enlarged again with tortuous/ectatic descending aorta and left pacemaker. Bony thorax intact again with osteopenia and degenerative changes. Code(s): J69.0 - PNEUMONITIS DUE TO INHALATION OF FOOD AND VOMIT Code(s): J69.0 - PNEUMONITIS DUE TO INHALATION OF FOOD AND VOMIT - Discharge Discharge Date: 09/01/23 Disposition: Home, Self-Care Condition: Fair Prescriptions: New Amox Tr/Potass Clav. 875 mg [Augmentin 875-125 Tablet] 875 mg PO Q12H 5 Days #10 tablet Prednisone 20 mg [Deltasone 20 mg] 20 mg PO BID 5 Days #10 tablet Continue Apixaban [Eliquis 5 mg Tablet] 2.5 mg PO BID Bumetanide 1 mg [Bumex 1 mg] 1 mg PO DAILY Memantine HCl 5 mg PO QHS PANTOPRAZOLE 40 mg Tablet [Protonix 40MG Tablet] 40 mg PO DAILY Losartan Potassium [Cozaar] 100 mg PO DAILY Folic Acid 1 mg [Folate 1 mg] 1 mg PO DAILY Donepezil HCl [Aricept] 5 mg PO DAILY Amlodipine Besylate 5 mg [Norvasc 5 mg] 5 mg PO DAILY Atorvastatin Calcium 40 mg PO HS OLANZapine [Olanzapine] 10 mg PO HS Insulin Glargine,Hum.rec.anlog [Lantus] 20 unit SQ BID Escitalopram Oxalate [Lexapro] 10 mg PO DAILY Aspirin 81 gm Chew [Baby Aspirin 81 mg Chew] 81 mg PO DAILY Insulin Lispro [Humalog] 10 unit SQ TID Potassium Chloride 7.5 ml PO BID Fluticasone/Umeclidin/Vilanter [Trelegy Ellipta 100-62.5-25] 1 puff IH DAILY Ergocalciferol (Vitamin D2) [Vitamin D2] 50,000 units PO WEEKLY Albuterol Sulfate [Albuterol Sulfate Hfa] 2 inh PO UD Amoxicillin/Potassium Clav [Amox-Clav 875-125 mg Tablet] 1 each PO BID Additional Instructions: [facility] THEY WILL CALL YOU TO ARRANGE A TIME TO COME SEE YOU Follow up with: JANNETTE YADAV MD [Primary Care Provider] -
[2023-09-05] MEDS ORDERED: VITAMIN D2 PO SCH (10:00)
== END 2023-09-01 14:56 | disposition home health service (06) ==
LOC: ED 09:54 → MED SURG 15:25
PROVIDERS: ADMIT Internal Medicine; ATTEND Internal Medicine
DX: J44.1 Chronic obstructive pulmonary disease with (acute) exacerbation (principal); I13.0 Hypertensive heart and chronic kidney disease with heart failure and stage 1 through stage 4 chronic kidney disease, or unspecified chronic kidney disease; E11.22 Type 2 diabetes mellitus with diabetic chronic kidney disease; I50.9 Heart failure, unspecified; R14.0 Abdominal distension (gaseous); E11.9 Type 2 diabetes mellitus without complications; F41.8 Other specified anxiety disorders; G30.9 Alzheimer's disease, unspecified; F02.80 Dementia in other diseases classified elsewhere, unspecified severity, without behavioral disturbance, psychotic disturbance, mood disturbance, and anxiety; N17.9 Acute kidney failure, unspecified; N18.9 Chronic kidney disease, unspecified; G47.30 Sleep apnea, unspecified; R79.89 Other specified abnormal findings of blood chemistry; E83.41 Hypermagnesemia; J18.9 Pneumonia, unspecified organism; J44.9 Chronic obstructive pulmonary disease, unspecified; I48.91 Unspecified atrial fibrillation; E66.9 Obesity, unspecified; Z79.01 Long term (current) use of anticoagulants; Z79.899 Other long term (current) drug therapy; Z20.828 Contact with and (suspected) exposure to other viral communicable diseases; Z09 Encounter for follow-up examination after completed treatment for conditions other than malignant neoplasm; Z86.73 Personal history of transient ischemic attack (TIA), and cerebral infarction without residual deficits
CPT/HCPCS: 0241U; 36415; 71045; 74018; 74230; 78582; 80053; 81001; 82947; 83036; 83605; 83735; 83880; 84145; 84484; 85025; 85027; 85379; 87040; 92611; 93005; 93306; 94002; 94003; 94640; 94762; 97165; 99285; 99291; A9540; A9567; Q3014; 93268; J0696; J1817; J1940; J2543; J2920; A9270-GY; G0378

== ENCOUNTER 2024-01-31 09:32 | Inpatient (IN) | payer MEDICARE, OTHER ==
--- NOTE | 2024-01-31 09:40 | ERPHSYRPT ---
- History of Present Illness Time Seen by Provider: 01/31/24 09:39 Source: patient, EMS, old records Exam Limitations: clinical condition Physician History: The patient is an obese 83-year-old white female patient who presents by ambulance secondary to shortness of breath and cough. Patient has chronic recurring COPD exacerbation and is on oxygen at home. Patient has Alzheimer's dementia and is a poor historian. Apparently, the patient was also taking 15 L of oxygen via nasal cannula. The rn cardiovascular icu service provided her with a DuoNeb and 125 mg Solu-Medrol intravenously. Patient awakens from her lethargy and is aware to self but not aware to her surroundings at this time. Patient has a history of peripheral neuropathy, CVA, hypertension, CHF, sleep apnea, arthritis, irritable bowel syndrome, chronic renal disease, hypertension, hyperlipidemia, gastroesophageal reflux disease and is on Plavix. Timing/Duration: today Severity of Dyspnea-Max: mild (Moderate) Severity of Dyspnea-Current: mild (To moderate) Possible Cause: frequent episodes Modifying Factors: Improves With: oxygen Associated Symptoms: No chest pain/discomfort Allergies/Adverse Reactions: carvedilol Allergy (Verified 01/31/24 09:43) Home Medications: Amlodipine Besylate 5 mg [Norvasc 5 mg] 5 mg PO DAILY 02/08/18 [History] Apixaban [Eliquis 5 mg Tablet] 2.5 mg PO BID 02/08/18 [History] Atorvastatin Calcium 40 mg PO HS 02/08/18 [History] Bumetanide 1 mg [Bumex 1 mg] 1 mg PO DAILY 02/08/18 [History] Donepezil HCl [Aricept] 5 mg PO DAILY 02/08/18 [History] Folic Acid 1 mg [Folate 1 mg] 1 mg PO DAILY 02/08/18 [History] Losartan Potassium [Cozaar] 100 mg PO DAILY 02/08/18 [History] Memantine HCl 5 mg PO QHS 02/08/18 [History] PANTOPRAZOLE 40 mg Tablet [Protonix 40MG Tablet] 40 mg PO DAILY 02/08/18 [History] OLANZapine [Olanzapine] 10 mg PO HS 02/27/19 [History] Insulin Glargine,Hum.rec.anlog [Lantus] 20 unit SQ BID 04/19/19 [History] Aspirin 81 gm Chew [Baby Aspirin 81 mg Chew] 81 mg PO DAILY 08/30/19 [History] Escitalopram Oxalate [Lexapro] 10 mg PO DAILY 08/30/19 [History] Insulin Lispro [Humalog] 10 unit SQ TID 08/31/19 [History] Fluticasone/Umeclidin/Vilanter [Trelegy Ellipta 100-62.5-25] 1 puff IH DAILY 07/09/21 [History] Albuterol 2.5 mg/3 ml Neb [Proventil 2.5 mg/3 ml Neb] 1 vial NEB TID 01/31/24 [History] Potassium Chloride 7.5 ml PO BID 01/31/24 [History] Hx Tetanus, Diphtheria Vaccination/Date Given: Yes Hx Influenza Vaccination/Date Given: Yes Hx Pneumococcal Vaccination/Date Given: Yes Travel Risk - International Travel Have you traveled outside of the country in past 3 weeks: No - Emerging Infectious Disease Are you exhibiting symptoms associated with any current EIDs: Yes Symptoms: Shortness of Breath - Review of Systems Constitutional: Lethargy, Weakness Eyes: No Symptoms Ears, Nose, & Throat: No Symptoms Respiratory: Dyspnea Cardiac: No Symptoms Abdominal/Gastrointestinal: No Symptoms Genitourinary Symptoms: No Symptoms Musculoskeletal: No Symptoms Skin: No Symptoms Neurological: Lethargy Psychological: No Symptoms Endocrine: No Symptoms Hematologic/Lymphatic: No Symptoms Immunological/Allergic: No Symptoms All Other Systems: Reviewed and Negative - Past Medical History Pertinent Past Medical History: Yes Neurological History: Alzheimer's Disease, Dementia, Peripheral Neuropathy, Stroke ENT History: Cataracts Cardiac History: Hypertension Respiratory History: CHF, COPD, Sleep Apnea, Other Endocrine Medical History: Diabetes Type II Musculoskeletal History: Arthritis GI Medical History: Diverticulitis, Irritable Bowel History: No Pertinent History, Renal Disease Psycho-Social History: No Pertinent History Female Reproductive Disorders: No Pertinent History, Other Other Medical History: pt family states pt noncompliant with cpap, ovarian cysts - Past Surgical History Past Surgical History: Yes Neuro Surgical History: No Pertinent History Cardiac: No Pertinent History, Internal Defibrillator, Pacemaker Respiratory: No Pertinent History Gastrointestinal: No Pertinent History Genitourinary: Other Musculoskeletal: No Pertinent History Female Surgical History: Tubal Ligation Other Surgical History: ear surgery, cataract surgery, bladder tuck,lasik surgery. Kidney removed Significant Family History: no pertinent family hx - Social History Smoking Status: Former smoker How long have you smoked: 50 Exposure to second hand smoke: No Drug Use: none Patient Lives Alone: No - Social Determinants of Health Will the patient participate in the screening: Yes Do you worry about a steady place to live?: No In the past 12 months,have you had to go without utilities?: No Transportation Issues: No Has anyone in your support network made you feel unsafe?: No Have you or anyone in your house had to go without enough: No - Nursing Vital Signs Nursing Vital Signs: Initial Vital Signs Temperature 97.5 F 01/31/24 09:40 Pulse Rate 63 01/31/24 09:40 Respiratory Rate 27 H 01/31/24 09:40 Blood Pressure 151/67 01/31/24 09:40 O2 Sat by Pulse Oximetry 95 01/31/24 09:40 Pain Scale Pain Intensity 0 - Physical Exam General Appearance: mild distress, lethargy, obese Eye Exam: PERRL/EOMI, eyes nml inspection Ears, Nose, Throat Exam: hearing grossly normal, normal ENT inspection, normal pharynx Neck Exam: normal inspection, non-tender, supple, full range of motion Respiratory Exam: No chest tenderness Abdominal/Gastrointestinal Exam: No tenderness Rectal Exam: not done Neurologic Exam: other (To self and lethargic) Skin Exam: normal color, warm, dry Lymphatic Exam: No adenopathy SpO2 Interpretation: normal - Course Nursing assessment & vital signs reviewed: Yes Ordered Tests: Active Orders 24 hr Category Date Time Status Plant Floor Automation Manager STAT Care 01/31/24 09:58 Active EKG-ER Only STAT Care 01/31/24 09:58 Active IV Insertion STAT Care 01/31/24 09:58 Active Oxygen-ED Only Nasal Cannula 5 lpm Care 01/31/24 10:45 Active Pulse Oximetry (ED) STAT Care 01/31/24 09:58 Active CHEST 1 VIEW (PORTABLE) Stat Exams 01/31/24 09:58 Completed HEAD WITHOUT CONTRAST [CT] Stat Exams 01/31/24 10:06 Completed ABG [ARTERIAL BLOOD GASES] Stat Lab 01/31/24 09:55 Completed BLOOD CULTURE Stat Lab 01/31/24 10:40 Received CBC W DIFF Stat Lab 01/31/24 10:30 Completed CMP Stat Lab 01/31/24 10:30 Completed Lactic Acid Stat Lab 01/31/24 09:55 Completed MAGNESIUM Stat Lab 01/31/24 10:30 Completed NT PRO BNPII Stat Lab 01/31/24 10:30 Completed TROPONIN Q4H Lab 01/31/24 10:30 Completed TROPONIN Q4H Lab 01/31/24 14:00 Ordered TROPONIN Q4H Lab 01/31/24 18:00 Ordered Medication Summary Discontinued Medications Generic Name Dose Route Start Last Admin Trade Name Michelle PRN Reason Stop Dose Admin Ceftriaxone Sodium 1 gm in 100 mls @ 200 mls/hr 01/31/24 11:34 01/31/24 12:40 Rocephin 1 Gm / 100 Ml Nacl IV 01/31/24 12:03 Infused STAT ONE Infusion Ceftriaxone Sodium Confirm 01/31/24 12:02 Rocephin 1 Gm / 100 Ml Nacl Administered 01/31/24 12:03 Dose 1 gm in 100 mls @ IV .[facility] Lab/Rad Data: Laboratory Result Diagrams 01/31/24 10:30 01/31/24 10:30 Laboratory Results 01/31/24 01/31/24 01/31/24 Range/Units 10:30 10:30 10:30 WBC (3.98-10.04) x10^3/uL RBC (3.93-5.22) x10^6/uL Hgb (11.2-15.7) g/dL Hct (34.1-44.9) % MCV (79.4-94.8) fL MCH (25.6-32.2) pg MCHC (32.2-35.5) g/dL RDW (11.7-14.4) % Plt Count (182-369) x10^3/uL MPV (9.4-12.3) fL Gran % (34.0-71.1) % Immature Gran % (Auto) (0.001-0.429) % Nucleat RBC Rel Count (0.00-0.2) % Eos # (Auto) (0.04-0.36) x10^3/uL Immature Gran # (Auto) (0.001-0.031) x10^3u/L Absolute Lymphs (auto) (1.18-3.74) x10^3/uL Absolute Monos (auto) (0.24-0.86) x10^3/uL Absolute Nucleated RBC (0.00-0.012) x10^3u/L Lymphocytes % (19.3-51.7) % Monocytes % (4.7-12.5) % Eosinophils % (0.7-5.8) % Basophils % (0.1-1.2) % Absolute Granulocytes (1.56-6.13) x10^3/uL Basophils # (0.01-0.08) x10^3/uL Puncture Site pCO2 (35-45) mmHg pO2 (75-100) mmHg Base Excess (-2.0-2.0) O2 Saturation (94-100) g/dF ABG pH (7.35-7.45) ABG HCO3 (22-28) ABG O2 Sat (Measured) (95-100) % Emmanuel Test A-a Gradient a/A Ratio Hemoglobin Carboxyhemoglobin (0.0-6.9) % THgb Methemoglobin (1.4-1.5) % Potassium 4.0 (3.5-5.1) Temperature C POC O2 Flow Rate % Sodium 140 (135-145) mmol/L Chloride 106 (98-107) mmol/L Carbon Dioxide 27 (22-30) mmol/L Anion Gap 11.4 (5-15) MEQ/L BUN 27 H (7-17) mg/dL Creatinine 1.55 H (0.52-1.04) mg/dL Estimated GFR 32.8 ML/MIN Glucose 156 H (74-106) mg/dL Lactic Acid (0.4-2.0) Calcium 9.4 (8.4-10.2) mg/dL Magnesium 2.3 (1.6-2.3) mg/dL Total Bilirubin 0.40 (0.2-1.3) mg/dL AST 25 (14-36) U/L ALT 21 (0-35) U/L Alkaline Phosphatase 121 (38-126) U/L Ammonia < 9 L (9-30) umol/L Troponin I 0.016 (0.000-0.033) ng/mL NT-Pro-B Natriuret Pep 650 (<300) pg/mL Serum Total Protein 7.4 (6.3-8.2) g/dL Albumin 4.0 (3.5-5.0) g/dL Influenza Type A Ag (NEGATIVE) Influenza Type B Ag (NEGATIVE) RSV (PCR) (NEGATIVE) SARS-CoV-2 (PCR) (NEGATIVE) 01/31/24 01/31/24 01/31/24 Range/Units 10:30 10:15 09:55 WBC 8.3 (3.98-10.04) x10^3/uL RBC 4.24 (3.93-5.22) x10^6/uL Hgb 11.8 (11.2-15.7) g/dL Hct 38.8 (34.1-44.9) % MCV 91.5 (79.4-94.8) fL MCH 27.8 (25.6-32.2) pg MCHC 30.4 L (32.2-35.5) g/dL RDW 15.9 H (11.7-14.4) % Plt Count 203 (182-369) x10^3/uL MPV 10.1 (9.4-12.3) fL Gran % 70.9 (34.0-71.1) % Immature Gran % (Auto) 0.7 H (0.001-0.429) % Nucleat RBC Rel Count 0.0 (0.00-0.2) % Eos # (Auto) 0.22 (0.04-0.36) x10^3/uL Immature Gran # (Auto) 0.06 H (0.001-0.031) x10^3u/L Absolute Lymphs (auto) 1.58 (1.18-3.74) x10^3/uL Absolute Monos (auto) 0.50 (0.24-0.86) x10^3/uL Absolute Nucleated RBC 0.00 (0.00-0.012) x10^3u/L Lymphocytes % 19.0 L (19.3-51.7) % Monocytes % 6.0 (4.7-12.5) % Eosinophils % 2.6 (0.7-5.8) % Basophils % 0.8 (0.1-1.2) % Absolute Granulocytes 5.90 (1.56-6.13) x10^3/uL Basophils # 0.07 (0.01-0.08) x10^3/uL Puncture Site pCO2 (35-45) mmHg pO2 (75-100) mmHg Base Excess (-2.0-2.0) O2 Saturation (94-100) g/dF ABG pH (7.35-7.45) ABG HCO3 (22-28) ABG O2 Sat (Measured) (95-100) % Emmanuel Test A-a Gradient a/A Ratio Hemoglobin Carboxyhemoglobin (0.0-6.9) % THgb Methemoglobin (1.4-1.5) % Potassium (3.5-5.1) Temperature C POC O2 Flow Rate % Sodium (135-145) mmol/L Chloride (98-107) mmol/L Carbon Dioxide (22-30) mmol/L Anion Gap (5-15) MEQ/L BUN (7-17) mg/dL Creatinine (0.52-1.04) mg/dL Estimated GFR ML/MIN Glucose (74-106) mg/dL Lactic Acid 1.1 (0.4-2.0) Calcium (8.4-10.2) mg/dL Magnesium (1.6-2.3) mg/dL Total Bilirubin (0.2-1.3) mg/dL AST (14-36) U/L ALT (0-35) U/L Alkaline Phosphatase (38-126) U/L Ammonia (9-30) umol/L Troponin I (0.000-0.033) ng/mL NT-Pro-B Natriuret Pep (<300) pg/mL Serum Total Protein (6.3-8.2) g/dL Albumin (3.5-5.0) g/dL Influenza Type A Ag NEGATIVE (NEGATIVE) Influenza Type B Ag NEGATIVE (NEGATIVE) RSV (PCR) NEGATIVE (NEGATIVE) SARS-CoV-2 (PCR) NEGATIVE (NEGATIVE) 01/31/24 Range/Units 09:55 WBC (3.98-10.04) x10^3/uL RBC (3.93-5.22) x10^6/uL Hgb (11.2-15.7) g/dL Hct (34.1-44.9) % MCV (79.4-94.8) fL MCH (25.6-32.2) pg MCHC (32.2-35.5) g/dL RDW (11.7-14.4) % Plt Count (182-369) x10^3/uL MPV (9.4-12.3) fL Gran % (34.0-71.1) % Immature Gran % (Auto) (0.001-0.429) % Nucleat RBC Rel Count (0.00-0.2) % Eos # (Auto) (0.04-0.36) x10^3/uL Immature Gran # (Auto) (0.001-0.031) x10^3u/L Absolute Lymphs (auto) (1.18-3.74) x10^3/uL Absolute Monos (auto) (0.24-0.86) x10^3/uL Absolute Nucleated RBC (0.00-0.012) x10^3u/L Lymphocytes % (19.3-51.7) % Monocytes % (4.7-12.5) % Eosinophils % (0.7-5.8) % Basophils % (0.1-1.2) % Absolute Granulocytes (1.56-6.13) x10^3/uL Basophils # (0.01-0.08) x10^3/uL Puncture Site RIGHT RADIAL pCO2 46 H (35-45) mmHg pO2 65 L (75-100) mmHg Base Excess 4.6 H (-2.0-2.0) O2 Saturation 93.2 L (94-100) g/dF ABG pH 7.42 (7.35-7.45) ABG HCO3 29.8 H* (22-28) ABG O2 Sat (Measured) 94.9 L (95-100) % Emmanuel Test YES A-a Gradient 163 a/A Ratio 0.29 Hemoglobin 12.4 Carboxyhemoglobin 1.1 (0.0-6.9) % THgb Methemoglobin 0.7 L (1.4-1.5) % Potassium 4.1 (3.5-5.1) Temperature 37.0 C POC O2 Flow Rate 40 % Sodium (135-145) mmol/L Chloride (98-107) mmol/L Carbon Dioxide (22-30) mmol/L Anion Gap (5-15) MEQ/L BUN (7-17) mg/dL Creatinine (0.52-1.04) mg/dL Estimated GFR ML/MIN Glucose (74-106) mg/dL Lactic Acid (0.4-2.0) Calcium (8.4-10.2) mg/dL Magnesium (1.6-2.3) mg/dL Total Bilirubin (0.2-1.3) mg/dL AST (14-36) U/L ALT (0-35) U/L Alkaline Phosphatase (38-126) U/L Ammonia (9-30) umol/L Troponin I (0.000-0.033) ng/mL NT-Pro-B Natriuret Pep (<300) pg/mL Serum Total Protein (6.3-8.2) g/dL Albumin (3.5-5.0) g/dL Influenza Type A Ag (NEGATIVE) Influenza Type B Ag (NEGATIVE) RSV (PCR) (NEGATIVE) SARS-CoV-2 (PCR) (NEGATIVE) - Progress Progress: improved, re-examined Air Movement: fair Progress Note: 01/31/24 11:39 My medical decision making and the assignment of moderate to high complexity of this patient's medical issue today is based on review of the patient's past medical history, review of the patient's medication list, reviewed patient drug allergy list, history present illness and physical findings on examination. The workup in this patient includes placement of intravenous line, CBC, CMP, lactic acid level, viral swabs, chest x-ray, CT scan of the head, ammonia level. In addition we we will have respiratory therapy evaluate the patient and perform an ABG as well as provide the patient with nebulizer treatment if needed. We will perform BNP, troponin level and a twelve-lead EKG.. Differential diagnosis includes but not limited to CHF exacerbation, COPD exacerbation, pneumonia, myocardial infarction, electrolyte abnormalities, arrhythmia 01/31/24 11:44 I interpreted the preliminary report of the patient's chest x-ray. On my examination the patient has a right mid to lower lung field infiltrate. The radiologist interpreted the final chest x-ray interpretation. I reviewed this impression. Impression states right mid to lower lung infiltrate versus fluid versus atelectasis. I called and left a message with access cardiology Dr. David Savage at [phone] discussed this patient's brief run of asymptomatic V. tach on the monitor. We have not been able to capture it at this point in time on the twelve-lead EKG. Neva, emergency room nurse, also attempted to contact him as well as faxed over the twelve-lead EKG and monitor runs to the number provided. 01/31/24 12:52 I spoke with telehospitalist Dr. Live. I reviewed the patient history, presenting complaint, physical findings on examination. And results of the EKG, chest x-ray and other workup studies. I also discussed with him the fact the patient had a short run of V. tach and we did briefly discuss the outcome of the options advisor, Dr. Savage assessment. Dr. Savage states that he feels comfortable with this patient remaining at our facility. We will place her on telemetry 01/31/24 12:54 Blood Culture(s) Obtained: Yes Antibiotics given: Yes Counseled pt/family regarding: lab results, diagnosis, rad results Medical Desision Making - Independent Historian Additional History obtained from: Family - Diagnostic Testing Diagnostic test were ordered, analyzed, and reviewed by me: Yes Radiological Interpretation: Reviewed by me, Teleradiologist Report - Risk of complications The pt has a high risk of morbidity or mortality based on: Decision regarding hospitilization or escalation of hosp level of care - Departure Departure Disposition: In-patient Admission Clinical Impression: Hypoxia, Right pulmonary infiltrate on CXR Condition: Fair Critical Care Time: Yes Critical Care Time(excluding separately billable procedures): Critical 30-74 mins (40 minutes) Referrals: JANNETTE YADAV MD [Primary Care Provider] - Follow up/PCP as directed
[2024-01-31 09:56] LABS: A-aADO2 163; ABG HEMOGLOBIN 12.4; ABG POTASSIUM 4.1 (3.5-5.1); ABG SITE RIGHT RADIAL; ALLEN TEST OK? YES; ARTERIAL BLD GAS O2 SATURATION 94.9 % (95-100); ARTERIAL BLOOD GAS BASE EXCESS 4.6 (-2.0-2.0); ARTERIAL BLOOD GAS FIO2 40 %; ARTERIAL BLOOD GAS PCO2 46 mmHg (35-45); ARTERIAL BLOOD GAS PO2 65 mmHg (75-100); ARTERIAL BLOOD GAS pH 7.42 (7.35-7.45); CARBOXYHEMOGLOBIN 1.1 % THgb (0.0-6.9); HCO3- 29.8 (22-28); HGB O2 SAT 93.2 g/dF (94-100); Methhemoglobin 0.7 % (1.4-1.5); paO2 pAO1 0.29
--- NOTE | 2024-01-31 10:28 | XRAY ---
Indication: Short of breath. Comparison: August 30, 2023 Portable chest demonstrates new right mid to lower lung infiltrate/atelectasis/effusion. Also new left mid to lower lung discoid atelectasis/scarring. Heart remains enlarged again with arteriosclerotic tortuous aorta and left pacemaker. Bony thorax intact again with osteopenia and degenerative changes.
[2024-01-31 10:44] LABS: BASOPHIL % 0.8 % (0.1-1.2); Basophil (Absolute #) 0.07 x10^3/uL (0.01-0.08); Eosinophil % 2.6 % (0.7-5.8); Eosinophil (Absolute #) 0.22 x10^3/uL (0.04-0.36); Hematocrit 38.8 % (34.1-44.9); Hemoglobin 11.8 g/dL (11.2-15.7); IMMATURE GRAN # 0.06 x10^3u/L (0.001-0.031); IMMATURE GRAN % 0.7 % (0.001-0.429); Lymphocyte (Absolute #) 1.58 x10^3/uL (1.18-3.74); Mean Cell Volume 91.5 fL (79.4-94.8); Mean Corpuscular Hemoglobin 27.8 pg (25.6-32.2); Mean Corpuscular Hgb Concent. 30.4 g/dL (32.2-35.5); Mean Platelet Volume 10.1 fL (9.4-12.3); Neutrophil % 70.9 % (34.0-71.1); Platelet Count 203 x10^3/uL (182-369); Red Blood Count 4.24 x10^6/uL (3.93-5.22); Red Cell Distribution Width 15.9 % (11.7-14.4); White Blood Count 8.3 x10^3/uL (3.98-10.04)
[2024-01-31 10:58] LABS: ANION GAP 11.4 MEQ/L (5-15); BILIRUBIN,TOTAL 0.4 mg/dL (0.2-1.3); Calcium 9.4 mg/dL (8.4-10.2); Creatinine 1 1.55 mg/dL (0.52-1.04); EST GLOMERULAR FILTRATION RATE 32.8 ML/MIN; MAGNESIUM 2.3 mg/dL (1.6-2.3); Total Protein 7.4 g/dL (6.3-8.2)
[2024-01-31 11:01] LABS: INFLUENZA A NEGATIVE (NEGATIVE); INFLUENZA B NEGATIVE (NEGATIVE); RESPIRATORY SYNCTIAL VIRUS NEGATIVE (NEGATIVE); SARS-CoV-2 Xpert Express NEGATIVE (NEGATIVE)
[2024-01-31 11:10] LABS: TROPONIN 0.016 ng/mL (0.000-0.033)
--- NOTE | 2024-01-31 11:30 | XRAY ---
Indication: Lethargy. Dementia. Alzheimer's. Stroke. Multiple contiguous axial images obtained through the head without contrast. Comparison: April 19, 2019 Again age-appropriate global atrophy, moderate periventricular degenerative micro-ischemia bilaterally, and largest focus old left posterior parietal/occipital lobe infarcts. No acute intracranial hemorrhage, hydrocephalus, or mass effect. Fourth ventricle is midline. Bony calvarium intact. Again moderate mucosal thickening right maxillary sinus and left mastoidectomy. Partial opacification right mastoid air cells presumed inflammatory. Impression: 1. Again nonacute senile brain with large old left posterior parietal/occipital infarct. 2. Incidental right maxillary sinus mucosal thickening and partial opacification right mastoid air cells presumed inflammatory.
[2024-01-31] MEDS ORDERED: ROCEPHIN 1 GM / 100 ML NaCl 1 GM/100 ML IVPB IV ONE (12:02)
[2024-01-31] MEDS: ROCEPHIN 1 GM / 100 ML NaCl 1 GM/100 ML IVPB IV ONE (12:03)
[2024-01-31] MEDS ORDERED: PROVENTIL 2.5 MG/3 ML NEB IH ONE (13:30)
[2024-01-31] MEDS: PROVENTIL 2.5 MG/3 ML NEB IH SCH ×2 (13:40→19:06)
[2024-01-31 13:48] LABS: Appearance Clear (Clear); Bacteria None Seen /HPF (None Seen); Bilirubin Negative (Negative); Blood Negative (Negative); Epithelial Cells None Seen /HPF (None Seen); Glucose, Urine Negative (Negative); Hyaline Casts NONE SEEN /LPF (0-2); Ketones Negative (Negative); Leukocyte Esterase Negative (Negative); Nitrite Negative (Negative); Protein,Urine Dip Negative (Negative); RBC 0-2 /HPF (0-5); Specific Gravity <=1.005 (1.005-1.030); WBC 0-2 /HPF (0-5)
[2024-01-31 13:55] LABS: ADD URINE CULTURE? ORDERED SEPARATELY (NO)
[2024-01-31] MEDS ORDERED: Zofran 4 MG/2 ML VIAL IV PRN (13:58)
[2024-01-31] MEDS ORDERED: TYLENOL 325 MG PO PRN (13:58)
--- NOTE | 2024-01-31 14:31 | PCM.HP ---
History of Present Illness - Chief Complaint Chief Complaint: Hypoxia/pneumonia Date: 01/31/24 History of Present Illness: is a 83 year old female with a pmhx of CVA, CHF, COPD (4-6L oxygen baseline), MARIPOSA (BIPAP at night), HTN, AD, IBS, OA, chronic renal failure (h/o nephrectomy), IBS, HLD, AFIB (pacemaker/eliquis), GERD, and DM who presented to ED 01/31/24 with a one day history of increased shortness of breath and fever. Daughter Glenna is at bedside and providing history - reports that patient was in her usual state of health until last night when she noticed her gait was a bit off, she seemed more short of breath, and her lips had a blueish tint to them. When she checked her spo2 it was in the 50's. At that time she turned her oxygen up to 15L and was able to maintain spo2 in the 80's. Patient is not fond of hospitals so she was trying to manage at home. Denies fevers and recent sick contacts. She has had a cough with thick brown sputum. Patient does need to have a mechanical soft diet with honey thickened liquids. Denies fever, cp, abdominal pain, BUSTOS, dizziness, N/V/D. Patient follows with Dr. Young (pulm) and Dr. Corea (cardiology). Upon arrival to ED patient was tachypneic and hypertensive. Oxygen saturations dipping into the 80's. Patient placed on 6L oxymask. CXR showing RML and RLL infiltrates. Head CT negative for acute findings. Lab findings remarkable for elevated creat of 1.55 which is better than her baseline of (1.6-1.7). BNP 650. Trops x 1 WNL. Respiratory panel negative. Patient given Ceftriaxone in ED. Plan for admission for acute respiratory failure secondary to pneumonia/copd exacerbation. - Review of Systems Constitutional: Fatigue, Weakness Eyes: No Symptoms Ears, Nose, & Throat: No Symptoms Respiratory: Cough, Short Of Breath, Wheezing Cardiac: No Symptoms Abdominal/Gastrointestinal: No Symptoms Genitourinary Symptoms: No Symptoms Musculoskeletal: No Symptoms Skin: No Symptoms Neurological: Gait Changes Psychological: No Symptoms Endocrine: No Symptoms Hematologic/Lymphatic: No Symptoms Immunological/Allergic: No Symptoms Medications & Allergies Home Medications: Home Medication List Amlodipine Besylate 5 mg [Norvasc 5 mg] 5 mg PO DAILY 02/08/18 [History Confirmed 01/31/24] Apixaban [Eliquis 5 mg Tablet] 2.5 mg PO BID 02/08/18 [History Confirmed 01/31/24] Atorvastatin Calcium 40 mg PO HS 02/08/18 [History Confirmed 01/31/24] Bumetanide 1 mg [Bumex 1 mg] 1 mg PO DAILY 02/08/18 [History Confirmed 01/31/24] Donepezil HCl [Aricept] 5 mg PO DAILY 02/08/18 [History Confirmed 01/31/24] Folic Acid 1 mg [Folate 1 mg] 1 mg PO DAILY 02/08/18 [History Confirmed ] Losartan Potassium [Cozaar] 100 mg PO DAILY 02/08/18 [History Confirmed 01/31/24] Memantine HCl 5 mg PO QHS 02/08/18 [History Confirmed 01/31/24] PANTOPRAZOLE 40 mg Tablet [Protonix 40MG Tablet] 40 mg PO DAILY 02/08/18 [History Confirmed 01/31/24] OLANZapine [Olanzapine] 10 mg PO HS 02/27/19 [History Confirmed 01/31/24] Insulin Glargine,Hum.rec.anlog [Lantus] 20 unit SQ BID 04/19/19 [History Confirmed 01/31/24] Aspirin 81 gm Chew [Baby Aspirin 81 mg Chew] 81 mg PO DAILY 08/30/19 [History Confirmed 01/31/24] Escitalopram Oxalate [Lexapro] 10 mg PO DAILY 08/30/19 [History Confirmed 01/31/24] Insulin Lispro [Humalog] 10 unit SQ TID 08/31/19 [History Confirmed 01/31/24] Fluticasone/Umeclidin/Vilanter [Trelegy Ellipta 100-62.5-25] 1 puff IH DAILY 07/09/21 [History Confirmed 01/31/24] Albuterol 2.5 mg/3 ml Neb [Proventil 2.5 mg/3 ml Neb] 1 vial NEB TID 01/31/24 [History Confirmed 01/31/24] Potassium Chloride 7.5 ml PO BID 01/31/24 [History Confirmed 01/31/24] Allergies/Adverse Reactions: Allergies Allergy/AdvReac Type Severity Reaction Status Date / Time carvedilol Allergy Verified 01/31/24 09:43 - Past Medical History Past Medical History: Yes Neurological History: Alzheimer's Disease, Dementia, Peripheral Neuropathy, Stroke ENT History: Cataracts Cardiac History: Hypertension Respiratory History: CHF, COPD, Sleep Apnea, Other Endocrine Medical History: Diabetes Type II Musculoskelatal History: Arthritis GI Medical History: Diverticulitis, Irritable Bowel History: No Pertinent History, Renal Disease Pyscho-Social History: No Pertinent History Reproductive Disorders: No Pertinent History, Other Comment: pt family states pt noncompliant with cpap, ovarian cysts - Past Surgical History Past Surgical History: Yes Neuro Surgical History: No Pertinent History Cardiac History: No Pertinent History, Internal Defibrillator, Pacemaker Respiratory Surgery: No Pertinent History GI Surgical History: No Pertinent History Genitourinary Surgical Hx: Other Musculskeletal Surgical Hx: No Pertinent History Female Surgical History: Tubal Ligation Other Surgical History: ear surgery, cataract surgery, bladder tuck,lasik surgery. Kidney removed Significant Family History: no pertinent family hx - Social History Smoking Status: Former smoker How long have you smoked: 50 Exposure to second hand smoke: No Alcohol: None Drug Use: none - Social Determinants of Health Will the patient participate in the screening: Yes Do you worry about a steady place to live?: No In the past 12 months,have you had to go without utilities?: No Have you or anyone in your house had to go without enough: No Transportation Issues: No Has anyone in your support network made you feel unsafe?: No Does the patient want assistance with any of the above?: No - Physical Exam Vital Signs: Vital Signs - 24 hr Temp Pulse Resp BP BP Pulse Ox 01/31/24 14:12 98.1 F 67 20 140/65 97 01/31/24 13:46 65 14 95 01/31/24 13:00 65 14 149/80 95 01/31/24 12:30 67 20 153/82 93 L 01/31/24 12:00 62 19 158/82 96 01/31/24 11:30 63 23 152/84 97 01/31/24 11:04 63 21 150/80 89 L 01/31/24 11:03 62 19 01/31/24 11:00 68 21 87 L 01/31/24 10:58 69 34 H 88 L 01/31/24 10:40 60 33 H 91 L 01/31/24 10:32 63 30 H 93 L 01/31/24 09:58 94 L 01/31/24 09:43 59 L 20 151/67 96 01/31/24 09:40 97.5 F 63 27 H 151/67 95 General Appearance: no apparent distress Neurologic Exam: alert, oriented x 3, cooperative Eye Exam: PERRL/EOMI Ears, Nose, Throat Exam: normal ENT inspection Neck Exam: normal inspection Respiratory Exam: crackles/rales, rhonchi, wheezing Cardiovascular Exam: regular rate/rhythm, normal heart sounds Pelvic Exam: not done Rectal Exam: deferred Back Exam: normal inspection Extremity Exam: normal inspection Skin Exam: pale Results - Labs Lab/Micro Results: Lab Results-Last 24 Hours 01/31/24 01/31/24 01/31/24 Range/Units 09:55 09:55 10:15 WBC (3.98-10.04) x10^3/uL RBC (3.93-5.22) x10^6/uL Hgb (11.2-15.7) g/dL Hct (34.1-44.9) % MCV (79.4-94.8) fL MCH (25.6-32.2) pg MCHC (32.2-35.5) g/dL RDW (11.7-14.4) % Plt Count (182-369) x10^3/uL MPV (9.4-12.3) fL Gran % (34.0-71.1) % Immature Gran % (Auto) (0.001-0.429) % Nucleat RBC Rel Count (0.00-0.2) % Eos # (Auto) (0.04-0.36) x10^3/uL Immature Gran # (Auto) (0.001-0.031) x10^3u/L Absolute Lymphs (auto) (1.18-3.74) x10^3/uL Absolute Monos (auto) (0.24-0.86) x10^3/uL Absolute Nucleated RBC (0.00-0.012) x10^3u/L Lymphocytes % (19.3-51.7) % Monocytes % (4.7-12.5) % Eosinophils % (0.7-5.8) % Basophils % (0.1-1.2) % Absolute Granulocytes (1.56-6.13) x10^3/uL Basophils # (0.01-0.08) x10^3/uL Puncture Site RIGHT RADIAL pCO2 46 H (35-45) mmHg pO2 65 L (75-100) mmHg Base Excess 4.6 H (-2.0-2.0) O2 Saturation 93.2 L (94-100) g/dF ABG pH 7.42 (7.35-7.45) ABG HCO3 29.8 H* (22-28) ABG O2 Sat (Measured) 94.9 L (95-100) % Emmanuel Test YES A-a Gradient 163 a/A Ratio 0.29 Hemoglobin 12.4 Carboxyhemoglobin 1.1 (0.0-6.9) % THgb Methemoglobin 0.7 L (1.4-1.5) % Potassium 4.1 (3.5-5.1) Temperature 37.0 C POC O2 Flow Rate 40 % Sodium (135-145) mmol/L Chloride (98-107) mmol/L Carbon Dioxide (22-30) mmol/L Anion Gap (5-15) MEQ/L BUN (7-17) mg/dL Creatinine (0.52-1.04) mg/dL Estimated GFR ML/MIN Glucose (74-106) mg/dL Lactic Acid 1.1 (0.4-2.0) Calcium (8.4-10.2) mg/dL Magnesium (1.6-2.3) mg/dL Total Bilirubin (0.2-1.3) mg/dL AST (14-36) U/L ALT (0-35) U/L Alkaline Phosphatase (38-126) U/L Ammonia (9-30) umol/L Troponin I (0.000-0.033) ng/mL NT-Pro-B Natriuret Pep (<300) pg/mL Serum Total Protein (6.3-8.2) g/dL Albumin (3.5-5.0) g/dL Urine Color (Yellow) Urine Appearance (Clear) Urine pH (4.6-8.0) Ur Specific [place] (1.005-1.030) Urine Protein (Negative) Urine Glucose (UA) (Negative) mg/dL Urine Ketones (Negative) Urine Blood (Negative) Urine Nitrite (Negative) Urine Bilirubin (Negative) Urine Urobilinogen (0.2) mg/dL Ur Leukocyte Esterase (Negative) U Hyaline Cast (Auto) (0-2) /LPF Urine Microscopic RBC (0-5) /HPF Urine Microscopic WBC (0-5) /HPF Ur Epithelial Cells (None Seen) /HPF Urine Bacteria (None Seen) /HPF Urine Culture Reflexed (NO) Influenza Type A Ag NEGATIVE (NEGATIVE) Influenza Type B Ag NEGATIVE (NEGATIVE) RSV (PCR) NEGATIVE (NEGATIVE) SARS-CoV-2 (PCR) NEGATIVE (NEGATIVE) 01/31/24 01/31/24 01/31/24 Range/Units 10:30 10:30 10:30 WBC 8.3 (3.98-10.04) x10^3/uL RBC 4.24 (3.93-5.22) x10^6/uL Hgb 11.8 (11.2-15.7) g/dL Hct 38.8 (34.1-44.9) % MCV 91.5 (79.4-94.8) fL MCH 27.8 (25.6-32.2) pg MCHC 30.4 L (32.2-35.5) g/dL RDW 15.9 H (11.7-14.4) % Plt Count 203 (182-369) x10^3/uL MPV 10.1 (9.4-12.3) fL Gran % 70.9 (34.0-71.1) % Immature Gran % (Auto) 0.7 H (0.001-0.429) % Nucleat RBC Rel Count 0.0 (0.00-0.2) % Eos # (Auto) 0.22 (0.04-0.36) x10^3/uL Immature Gran # (Auto) 0.06 H (0.001-0.031) x10^3u/L Absolute Lymphs (auto) 1.58 (1.18-3.74) x10^3/uL Absolute Monos (auto) 0.50 (0.24-0.86) x10^3/uL Absolute Nucleated RBC 0.00 (0.00-0.012) x10^3u/L Lymphocytes % 19.0 L (19.3-51.7) % Monocytes % 6.0 (4.7-12.5) % Eosinophils % 2.6 (0.7-5.8) % Basophils % 0.8 (0.1-1.2) % Absolute Granulocytes 5.90 (1.56-6.13) x10^3/uL Basophils # 0.07 (0.01-0.08) x10^3/uL Puncture Site pCO2 (35-45) mmHg pO2 (75-100) mmHg Base Excess (-2.0-2.0) O2 Saturation (94-100) g/dF ABG pH (7.35-7.45) ABG HCO3 (22-28) ABG O2 Sat (Measured) (95-100) % Emmanuel Test A-a Gradient a/A Ratio Hemoglobin Carboxyhemoglobin (0.0-6.9) % THgb Methemoglobin (1.4-1.5) % Potassium 4.0 (3.5-5.1) Temperature C POC O2 Flow Rate % Sodium 140 (135-145) mmol/L Chloride 106 (98-107) mmol/L Carbon Dioxide 27 (22-30) mmol/L Anion Gap 11.4 (5-15) MEQ/L BUN 27 H (7-17) mg/dL Creatinine 1.55 H (0.52-1.04) mg/dL Estimated GFR 32.8 ML/MIN Glucose 156 H (74-106) mg/dL Lactic Acid (0.4-2.0) Calcium 9.4 (8.4-10.2) mg/dL Magnesium 2.3 (1.6-2.3) mg/dL Total Bilirubin 0.40 (0.2-1.3) mg/dL AST 25 (14-36) U/L ALT 21 (0-35) U/L Alkaline Phosphatase 121 (38-126) U/L Ammonia (9-30) umol/L Troponin I 0.016 (0.000-0.033) ng/mL NT-Pro-B Natriuret Pep 650 (<300) pg/mL Serum Total Protein 7.4 (6.3-8.2) g/dL Albumin 4.0 (3.5-5.0) g/dL Urine Color (Yellow) Urine Appearance (Clear) Urine pH (4.6-8.0) Ur Specific [place] (1.005-1.030) Urine Protein (Negative) Urine Glucose (UA) (Negative) mg/dL Urine Ketones (Negative) Urine Blood (Negative) Urine Nitrite (Negative) Urine Bilirubin (Negative) Urine Urobilinogen (0.2) mg/dL Ur Leukocyte Esterase (Negative) U Hyaline Cast (Auto) (0-2) /LPF Urine Microscopic RBC (0-5) /HPF Urine Microscopic WBC (0-5) /HPF Ur Epithelial Cells (None Seen) /HPF Urine Bacteria (None Seen) /HPF Urine Culture Reflexed (NO) Influenza Type A Ag (NEGATIVE) Influenza Type B Ag (NEGATIVE) RSV (PCR) (NEGATIVE) SARS-CoV-2 (PCR) (NEGATIVE) 01/31/24 01/31/24 Range/Units 10:30 11:00 WBC (3.98-10.04) x10^3/uL RBC (3.93-5.22) x10^6/uL Hgb (11.2-15.7) g/dL Hct (34.1-44.9) % MCV (79.4-94.8) fL MCH (25.6-32.2) pg MCHC (32.2-35.5) g/dL RDW (11.7-14.4) % Plt Count (182-369) x10^3/uL MPV (9.4-12.3) fL Gran % (34.0-71.1) % Immature Gran % (Auto) (0.001-0.429) % Nucleat RBC Rel Count (0.00-0.2) % Eos # (Auto) (0.04-0.36) x10^3/uL Immature Gran # (Auto) (0.001-0.031) x10^3u/L Absolute Lymphs (auto) (1.18-3.74) x10^3/uL Absolute Monos (auto) (0.24-0.86) x10^3/uL Absolute Nucleated RBC (0.00-0.012) x10^3u/L Lymphocytes % (19.3-51.7) % Monocytes % (4.7-12.5) % Eosinophils % (0.7-5.8) % Basophils % (0.1-1.2) % Absolute Granulocytes (1.56-6.13) x10^3/uL Basophils # (0.01-0.08) x10^3/uL Puncture Site pCO2 (35-45) mmHg pO2 (75-100) mmHg Base Excess (-2.0-2.0) O2 Saturation (94-100) g/dF ABG pH (7.35-7.45) ABG HCO3 (22-28) ABG O2 Sat (Measured) (95-100) % Emmanuel Test A-a Gradient a/A Ratio Hemoglobin Carboxyhemoglobin (0.0-6.9) % THgb Methemoglobin (1.4-1.5) % Potassium (3.5-5.1) Temperature C POC O2 Flow Rate % Sodium (135-145) mmol/L Chloride (98-107) mmol/L Carbon Dioxide (22-30) mmol/L Anion Gap (5-15) MEQ/L BUN (7-17) mg/dL Creatinine (0.52-1.04) mg/dL Estimated GFR ML/MIN Glucose (74-106) mg/dL Lactic Acid (0.4-2.0) Calcium (8.4-10.2) mg/dL Magnesium (1.6-2.3) mg/dL Total Bilirubin (0.2-1.3) mg/dL AST (14-36) U/L ALT (0-35) U/L Alkaline Phosphatase (38-126) U/L Ammonia < 9 L (9-30) umol/L Troponin I (0.000-0.033) ng/mL NT-Pro-B Natriuret Pep (<300) pg/mL Serum Total Protein (6.3-8.2) g/dL Albumin (3.5-5.0) g/dL Urine Color Yellow (Yellow) Urine Appearance Clear (Clear) Urine pH 7.0 (4.6-8.0) Ur Specific [place] <=1.005 (1.005-1.030) Urine Protein Negative (Negative) Urine Glucose (UA) Negative (Negative) mg/dL Urine Ketones Negative (Negative) Urine Blood Negative (Negative) Urine Nitrite Negative (Negative) Urine Bilirubin Negative (Negative) Urine Urobilinogen 1.0 A (0.2) mg/dL Ur Leukocyte Esterase Negative (Negative) U Hyaline Cast (Auto) NONE SEEN (0-2) /LPF Urine Microscopic RBC 0-2 (0-5) /HPF Urine Microscopic WBC 0-2 (0-5) /HPF Ur Epithelial Cells None Seen (None Seen) /HPF Urine Bacteria None Seen (None Seen) /HPF Urine Culture Reflexed ORDERED SEPARATELY (NO) Influenza Type A Ag (NEGATIVE) Influenza Type B Ag (NEGATIVE) RSV (PCR) (NEGATIVE) SARS-CoV-2 (PCR) (NEGATIVE) - Radiology Impressions Radiology Exams & Impressions: Radiology Procedures Category Date Time Status CHEST 1 VIEW (PORTABLE) Stat Exams 01/31/24 09:58 Completed HEAD WITHOUT CONTRAST [CT] Stat Exams 01/31/24 10:06 Completed - Other Procedures and Tests Respiratory Therapy 01/31/24 13:37 Oxygen NASAL CANNULA 5 lpm 01/31/24 13:51 BiPap/CPAP ROUTINE 01/31/24 13:58 EKG REPEAT IN AM 02/01/24 07:00 Respiratory MDI DAILY Respiratory Therapy Assessment DAILY Assessment/Plan (1) Acute respiratory failure with hypoxia Current Visit: Yes Status: Acute Assessment & Plan: -2/2 to pneumonia/copd exacerbation -Supplemental oxygen with spo2 goal 88-92% -baseline 4-6L -current 6L oxymizer -RT eval -DuoNebs/steroids -Ceftriaxone/azithromycin Code(s): J96.01 - ACUTE RESPIRATORY FAILURE WITH HYPOXIA (2) Pneumonia Current Visit: Yes Status: Acute Assessment & Plan: -see plan for ARF -Ceftriaxone started in ED, will continue add azithromycin Code(s): J18.9 - PNEUMONIA, UNSPECIFIED ORGANISM (3) COPD with exacerbation Current Visit: Yes Status: Acute Assessment & Plan: -see plan for ARF Code(s): J44.1 - CHRONIC OBSTRUCTIVE PULMONARY DISEASE W (ACUTE) EXACERBATION (4) HTN (hypertension) Current Visit: Yes Status: Acute Assessment & Plan: -continue home medications Code(s): I10 - ESSENTIAL (PRIMARY) HYPERTENSION (5) HLD (hyperlipidemia) Current Visit: Yes Status: Acute Assessment & Plan: -continue statin Code(s): E78.5 - HYPERLIPIDEMIA, UNSPECIFIED (6) GERD (gastroesophageal reflux disease) Current Visit: Yes Status: Acute Assessment & Plan: -continue protonix Code(s): K21.9 - GASTRO-ESOPHAGEAL REFLUX DISEASE WITHOUT ESOPHAGITIS (7) Chronic renal disease Current Visit: Yes Status: Acute Assessment & Plan: -at baseline -monitor renal/lytes daily -avoid nephrotoxic medications Code(s): N18.9 - CHRONIC KIDNEY DISEASE, UNSPECIFIED (8) CHF (congestive heart failure) Current Visit: No Status: Acute Qualifiers: Heart failure type: combined systolic and diastolic Assessment & Plan: -Does not appear to be in exacerbation, no edema noted on exam -BNP 650 -Echo 08/30/23 EF 50% IMPRESSION: 1) MILD CONCENTRIC LEFT VENTRICULAR HYPERTROPHY. 2) NORMAL LEFT VENTRICULAR SYSTOLIC FUNCTION. 3) CALCIFIC AORTIC SCLEROSIS WITH MOST LIKELY MILD AORTIC STENOSIS. 4) DIASTOLIC DYSFUNCTION. 5) MILD MITRAL REGURGITATION. 6) MILD AORTIC INSUFFICIENCY. 7) MILD TRICUSPID REGURGITATION. -Follows with Dr. 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 Current Visit: No Status: Chronic Assessment & Plan: -continue home meds Aricept and memantine Code(s): G30.9 - ALZHEIMER'S DISEASE, UNSPECIFIED; F02.80 - DEM IN OTH DIS CLASSD ELSWHR,UNSP SEV,W/O BEH/PSYCH/MOOD/ANX (10) Diabetes mellitus Current Visit: Yes Status: Acute Assessment & Plan: -Continue lispro/Glargine - Daughter states she uses SSI at home -mechanical soft ADA diet/ honey thickened liquids Code(s): E11.9 - TYPE 2 DIABETES MELLITUS WITHOUT COMPLICATIONS (11) Afib Current Visit: Yes Status: Acute Assessment & Plan: -Continue Eliquis -Of note patient with pacemaker/defib -tele Code(s): I48.91 - UNSPECIFIED ATRIAL FIBRILLATION (12) MARIPOSA (obstructive sleep apnea) Current Visit: Yes Status: Acute Assessment & Plan: -continue BIPAP VTE: Eliquis PPI: protonix Dispo: 1-2 days Code status: Full Code Code(s): G47.33 - OBSTRUCTIVE SLEEP APNEA (ADULT) (PEDIATRIC) Telemedicine Encounter - Telemedicine Encounter Telemedicine Encounter: "The entirety of this encounter was performed via Telemedicine" This visit was performed using real-time audio and video connection between my location and thepatients locationwith the assistance of a surrogateat the patients location. Written or verbal consent was obtained from the patient/guardian to perform this visit usingsynchronoustelemedicine technology. Any patient questions regarding the telemedicine interaction were answered.
[2024-01-31] MEDS: PATIENT OWN MEDICATION IH SCH (16:10)
--- NOTE | 2024-01-31 16:19 | PCM.CONS ---
History of Present Illness - Date of Consult Date of Encounter: 01/31/24 Consulting It Senior Analyst: EDUARD NICHOLS MD Requesting Provider: Attending Provider: SHOLA JOHNSON MD Primary Care Provider: PCP: JANNETTE YADAV - Consult Narrative Reason for Consult: Vtach HPI: Patient is a 83F with a history of obesity, HFpEF, COPD on home O2 4-6 liters presenting to the hospital with acute on chronic shortness of breath and hypoxia down to the 50s. Her daughter bumped her O2 up to the 70s but brought her in for further treatment. Started on COPD treatment. In the ED she had a run of wide complex tachycardia concerning for VT. She was awake and alert for it. This event was self limited. Per daughter she has had this in the past but is "allergic" to beta blockers and for that reason has not been started on any. Echocardiogram earlier this year showed normal LV size and function, normal LVEF and only mild aortic stenosis. Denies chest pains or palpitations. cc:: The requesting physician will be sent a copy of the consult. - Past Medical History Past Medical History: Yes Neurological History: Alzheimer's Disease, Dementia, Peripheral Neuropathy, Stroke ENT History: Cataracts Cardiac History: Hypertension Respiratory History: CHF, COPD, Sleep Apnea, Other Endocrine Medical History: Diabetes Type II Musculoskelatal History: Arthritis GI Medical History: Diverticulitis, Irritable Bowel History: No Pertinent History, Renal Disease Pyscho-Social History: No Pertinent History Reproductive Disorders: No Pertinent History, Other Comment: pt family states pt noncompliant with cpap, ovarian cysts - Past Surgical History Past Surgical History: Yes Neuro Surgical History: No Pertinent History Cardiac History: No Pertinent History, Internal Defibrillator, Pacemaker Respiratory Surgery: No Pertinent History GI Surgical History: No Pertinent History Genitourinary Surgical Hx: Other Musculskeletal Surgical Hx: No Pertinent History Female Surgical History: Tubal Ligation Other Surgical History: ear surgery, cataract surgery, bladder tuck,lasik surgery. Kidney removed Significant Family History: no pertinent family hx - Social History Smoking Status: Former smoker How long have you smoked: 50 Exposure to second hand smoke: No Alcohol: None Drug Use: none - Social Determinants of Health Will the patient participate in the screening: Yes Do you worry about a steady place to live?: No Do you have any problems with any of the following?: No known problems In the past 12 months,have you had to go without utilities?: No Have you or anyone in your house had to go without enough: No Transportation Issues: No Has anyone in your support network made you feel unsafe?: No Does the patient want assistance with any of the above?: No Medications & Allergies Home Medications: Home Medication List Amlodipine Besylate 5 mg [Norvasc 5 mg] 5 mg PO DAILY 02/08/18 [History Confirmed 01/31/24] Apixaban [Eliquis 5 mg Tablet] 2.5 mg PO BID 02/08/18 [History Confirmed 01/31/24] Atorvastatin Calcium 40 mg PO HS 02/08/18 [History Confirmed 01/31/24] Bumetanide 1 mg [Bumex 1 mg] 1 mg PO DAILY 02/08/18 [History Confirmed 01/31/24] Donepezil HCl [Aricept] 5 mg PO DAILY 02/08/18 [History Confirmed 01/31/24] Folic Acid 1 mg [Folate 1 mg] 1 mg PO DAILY 02/08/18 [History Confirmed 01/31/24] Losartan Potassium [Cozaar] 100 mg PO DAILY 02/08/18 [History Confirmed 01/31/24] Memantine HCl 5 mg PO QHS 02/08/18 [History Confirmed 01/31/24] PANTOPRAZOLE 40 mg Tablet [Protonix 40MG Tablet] 40 mg PO DAILY 02/08/18 [History Confirmed 01/31/24] OLANZapine [Olanzapine] 10 mg PO HS 02/27/19 [History Confirmed 01/31/24] Insulin Glargine,Hum.rec.anlog [Lantus] 20 unit SQ BID 04/19/19 [History Confirmed 01/31/24] Aspirin 81 gm Chew [Baby Aspirin 81 mg Chew] 81 mg PO DAILY 08/30/19 [History Confirmed 01/31/24] Escitalopram Oxalate [Lexapro] 10 mg PO DAILY 08/30/19 [History Confirmed 01/31/24] Insulin Lispro [Humalog] 10 unit SQ TID 08/31/19 [History Confirmed 01/31/24] Fluticasone/Umeclidin/Vilanter [Trelegy Ellipta 100-62.5-25] 1 puff IH DAILY 07/09/21 [History Confirmed 01/31/24] Albuterol 2.5 mg/3 ml Neb [Proventil 2.5 mg/3 ml Neb] 1 vial NEB TID 01/31/24 [History Confirmed 01/31/24] Potassium Chloride 7.5 ml PO BID 01/31/24 [History Confirmed 01/31/24] Allergies/Adverse Reactions: Allergies Allergy/AdvReac Type Severity Reaction Status Date / Time carvedilol Allergy Verified 01/31/24 09:43 Exam - Vitals Vital Signs: Vital Signs - 24 hr Temp Pulse Resp BP BP Pulse Ox 01/31/24 14:34 98.1 F 67 20 140/65 97 01/31/24 14:12 98.1 F 67 20 140/65 97 01/31/24 13:46 65 14 95 01/31/24 13:00 65 14 149/80 95 01/31/24 12:30 67 20 153/82 93 L 01/31/24 12:00 62 19 158/82 96 01/31/24 11:30 63 23 152/84 97 01/31/24 11:04 63 21 150/80 89 L 01/31/24 11:03 62 19 01/31/24 11:00 68 21 87 L 01/31/24 10:58 69 34 H 88 L 01/31/24 10:40 60 33 H 91 L 01/31/24 10:32 63 30 H 93 L 01/31/24 09:58 94 L 01/31/24 09:43 59 L 20 151/67 96 01/31/24 09:40 97.5 F 63 27 H 151/67 95 General:: alert and oriented x 4, severe distress HEENT: PERRLA, EOMI Cardiovascular Exam: regular rate/rhythm, tachycardia Respiratory Exam: accessory muscle use, wheezing SpO2: 97 Oxygen Delivery: Nasal Cannula Gastrointestinal/Abdomen Exam: soft, normal bowel sounds, No tenderness, No rebound Extremity Exam: warm, well perfused, capillary refill < 2 sec Results Vital Signs: Vital Signs - 24 hr Temp Pulse Resp BP BP Pulse Ox 01/31/24 14:34 98.1 F 67 20 140/65 97 01/31/24 14:12 98.1 F 67 20 140/65 97 01/31/24 13:46 65 14 95 01/31/24 13:00 65 14 149/80 95 01/31/24 12:30 67 20 153/82 93 L 01/31/24 12:00 62 19 158/82 96 01/31/24 11:30 63 23 152/84 97 01/31/24 11:04 63 21 150/80 89 L 01/31/24 11:03 62 19 01/31/24 11:00 68 21 87 L 01/31/24 10:58 69 34 H 88 L 01/31/24 10:40 60 33 H 91 L 01/31/24 10:32 63 30 H 93 L 01/31/24 09:58 94 L 01/31/24 09:43 59 L 20 151/67 96 01/31/24 09:40 97.5 F 63 27 H 151/67 95 Pain Assessment - Last Documented Pain Intensity 0 Intake and Output: Intake & Output 01/29/24 01/30/24 01/31/24 02/01/24 11:59 11:59 11:59 11:59 Weight 95.3 kg 93.6 kg LAB: I have reviewed the Labs in [facility]. Radiology Exams: Radiology Procedures Category Date Time Status CHEST 1 VIEW (PORTABLE) Stat Exams 01/31/24 09:58 Completed HEAD WITHOUT CONTRAST [CT] Stat Exams 01/31/24 10:06 Completed Multi-Disciplinary Progress Notes: Multi-Disciplinary Progress Notes 01/31/24 11:10 (created 01/31/24 12:00) Respiratory Note by Princess Freedman PT'2 O2 SAT ON 6LPM VIA NASAL CANNULA WAS 88%. PT CHANGED OVER TO 6LPM VIA OXYMASK. O2 SAT 97% Initialized on 01/31/24 12:00 - END OF NOTE Assessment & Plan (1) Wide-complex tachycardia Current Visit: Yes Status: Acute Assessment & Plan: Unclear if this was Vtach or A fib with aberrancy (appears irregular on tele strip) - No further episodes - Monitor on tele - Keep K>4, Mg>2 - Obtain repeat echocardiogram (had mild on previous echo) - Cannot give beta raven in setting severe COPD exacerbation Code(s): R00.0 - TACHYCARDIA, UNSPECIFIED (2) Afib Current Visit: Yes Status: Acute Assessment & Plan: continue eliquis avoid beta raven 2/2 COPD exacerbation Code(s): I48.91 - UNSPECIFIED ATRIAL FIBRILLATION (3) CHF (congestive heart failure) Current Visit: No Status: Acute Qualifiers: Heart failure type: combined systolic and diastolic Assessment & Plan: EF 50% on echo earlier this year - continue losartan - continue bumex as tolerated - Strict I/O, daily weights telemetry -repeat echo as above Code(s): I50.9 - HEART FAILURE, UNSPECIFIED (4) MARIPOSA (obstructive sleep apnea) Current Visit: Yes Status: Acute Code(s): G47.33 - OBSTRUCTIVE SLEEP APNEA (ADULT) (PEDIATRIC) (5) COPD exacerbation Current Visit: No Status: Acute Code(s): J44.1 - CHRONIC OBSTRUCTIVE PULMONARY DISEASE W (ACUTE) EXACERBATION (6) Chronic hypoxemic respiratory failure Current Visit: No Status: Acute - Encounter Critical Care Time: Critical 30-74 mins Encounter: "The entirety of this encounter was performed via Telemedicine using audio and visual "
[2024-01-31] MEDS: ECOTRIN 81 MG PO SCH (16:44)
[2024-01-31] MEDS: NORVASC 5 MG PO SCH (16:44)
[2024-01-31] MEDS: solu-MEDROL 40 MG, Sterile H2O 10 ml 1 ML IV SCH (16:44)
[2024-01-31] MEDS: Aricept 10 MG PO SCH (16:44)
[2024-01-31] MEDS: Zithromax 500 MG/ 250 ML NaCl Premix 500 MG/250 ML IVPB IV SCH (16:44)
[2024-01-31] MEDS: Cozaar 50 MG PO SCH (16:45)
[2024-01-31] MEDS: BUMEX 1 MG PO SCH (16:45)
[2024-01-31] MEDS: Protonix 40MG Tablet PO SCH (16:45)
[2024-01-31] MEDS: HUMALOG SQ PRN (19:02)
[2024-01-31] MEDS: Klor Con PO SCH (21:18)
[2024-01-31] MEDS: MELATONIN PO PRN (21:19)
[2024-01-31] MEDS: ZOCOR 20MG PO SCH (21:21)
[2024-01-31] MEDS: ELIQUIS 2.5 MG TABLET PO SCH (21:22)
[2024-01-31] MEDS: Namenda 5 MG PO SCH (21:22)
[2024-01-31] MEDS: zyPREXA 5MG TABLET PO SCH (21:22)
[2024-01-31] MEDS: Lantus Insulin SQ SCH (21:40)
[2024-01-31] MEDS ORDERED: LIPITOR 40MG PO SCH (22:00)
[2024-01-31] MEDS ORDERED: NON-FORMULARY ITEM (Potassium Chloride [Potassium Chloride] 20 MEQ/15 ML Liquid) PO SCH (22:00)
[2024-01-31] MEDS ORDERED: NON-FORMULARY ITEM (Olanzapine [Olanzapine] 10 MG Tablet) PO SCH (22:00)
[2024-01-31] MEDS ORDERED: APIXABAN PO SCH (22:00)
[2024-01-31] MEDS ORDERED: PROVENTIL 2.5 MG/3 ML NEB IH SCH (22:00)
[2024-01-31] MEDS: Mucinex 600MG ER Tabs PO SCH (22:34)
[2024-02-01 03:57] LABS: A-aADO2 89; ABG HEMOGLOBIN 11.7; ABG POTASSIUM 4.5 (3.5-5.1); ARTERIAL BLD GAS O2 SATURATION 98.9 % (95-100); ARTERIAL BLOOD GAS BASE EXCESS 4.1 (-2.0-2.0); ARTERIAL BLOOD GAS FIO2 36 %; ARTERIAL BLOOD GAS PCO2 45 mmHg (35-45); ARTERIAL BLOOD GAS PO2 111 mmHg (75-100); ARTERIAL BLOOD GAS pH 7.42 (7.35-7.45); CARBOXYHEMOGLOBIN 0.5 % THgb (0.0-6.9); HCO3- 29.2 (22-28); HGB O2 SAT 97.5 g/dF (94-100); Methhemoglobin 0.8 % (1.4-1.5); paO2 pAO1 0.56
[2024-02-01 05:01] LABS: Absolute Neutrophil Ct (ANC) 7.62 x10^3/uL (1.56-6.13); BASOPHIL % 0.3 % (0.1-1.2); Basophil (Absolute #) 0.03 x10^3/uL (0.01-0.08); Eosinophil (Absolute #) 0 x10^3/uL (0.04-0.36); IMMATURE GRAN # 0.08 x10^3u/L (0.001-0.031); IMMATURE GRAN % 0.9 % (0.001-0.429); Lymphocyte (Absolute #) 0.71 x10^3/uL (1.18-3.74); Mean Cell Volume 87.7 fL (79.4-94.8); Mean Corpuscular Hemoglobin 27.6 pg (25.6-32.2); Mean Corpuscular Hgb Concent. 31.4 g/dL (32.2-35.5); Mean Platelet Volume 10.7 fL (9.4-12.3); Monocyte (Absolute #) 0.42 x10^3/uL (0.24-0.86); Monocytes % 4.7 % (4.7-12.5); Neutrophil % 86.1 % (34.0-71.1); Platelet Count 218 x10^3/uL (182-369); Red Blood Count 3.99 x10^6/uL (3.93-5.22); Red Cell Distribution Width 15.9 % (11.7-14.4); White Blood Count 8.9 x10^3/uL (3.98-10.04)
--- NOTE | 2024-02-01 05:22 | PCM.NOTE ---
Date and Time: 02/01/24 0518 Subjective Assessment: is a 83 year old female with a pmhx of CVA, CHF, COPD (4-6L oxygen baseline), MARIPOSA (BIPAP at night), HTN, AD, IBS, OA, chronic renal failure (h/o nephrectomy), IBS, HLD, AFIB (pacemaker/eliquis), GERD, and DM who presented to ED 01/31/24 with a one day history of increased shortness of breath and fever. Daughter Glenna is at bedside and providing history - reports that patient was in her usual state of health until last night when she noticed her gait was a bit off, she seemed more short of breath, and her lips had a blueish tint to them. When she checked her spo2 it was in the 50's. At that time she turned her oxygen up to 15L and was able to maintain spo2 in the 80's. Patient is not fond of hospitals so she was trying to manage at home. Denies fevers and recent sick contacts. She has had a cough with thick brown sputum. Patient does need to have a mechanical soft diet with honey thickened liquids. Denies fever, cp, abdominal pain, BUSTOS, dizziness, N/V/D. Patient follows with Dr. Young (pulm) and Dr. Corea (cardiology).Upon arrival to ED patient was tachypneic and hypertensive. Oxygen saturations dipping into the 80's. Patient placed on 6L oxymask. CXR showing RML and RLL infiltrates. Head CT negative for acute findings. Lab findings remarkable for elevated creat of 1.55 which is better than her baseline of (1.6-1.7). BNP 650. Trops x 1 WNL. Respiratory panel negative. Patient given Ceftriaxone in ED. Plan for admission for acute respiratory failure secondary to pneumonia/copd exacerbation. Cardiology consulted in ED for a run of wide complex tachycardia concerning for VT.Echocardiogram earlier this year showed normal LV size and function, normal LVEF and only mild aortic stenosis. Recommendations to monitor on tele and repeat echo. 02/01/24: Met with patient and daughter Glenna bedside. Endorses improvement in dyspnea and cough. At baseline oxygen. Lung auscultation with exp wheezing bilaterally. Plan to continue steroids/abx. - Review of Systems Constitutional: No Symptoms Eyes: No Symptoms Ears, Nose, & Throat: No Symptoms Respiratory: Cough, Short Of Breath Cardiac: No Symptoms Abdominal/Gastrointestinal: No Symptoms Genitourinary Symptoms: No Symptoms Musculoskeletal: No Symptoms Skin: No Symptoms Neurological: No Symptoms Psychological: No Symptoms Endocrine: No Symptoms Hematologic/Lymphatic: No Symptoms Immunological/Allergic: No Symptoms Objective Exam General Appearance: no apparent distress Neurologic Exam: alert, oriented x 3, cooperative Skin Exam: pale Eye Exam: PERRL Ears, Nose, Throat Exam: moist mucous membranes Neck Exam: normal inspection Respiratory Exam: diminished breath sounds, wheezing Cardiovascular Exam: regular rate/rhythm, normal heart sounds Gastrointestinal/Abdomen Exam: soft, normal bowel sounds Extremity Exam: normal inspection Back Exam: normal inspection Pelvic Exam: deferred Rectal Exam: deferred Objective Data Vital Signs: Vital Signs - 24 hr Temp Pulse Resp BP BP Pulse Ox 02/01/24 04:00 97.5 F 60 18 139/72 92 L 01/31/24 23:50 97.1 F 61 18 109/60 94 L 01/31/24 19:53 97.8 F 70 16 114/61 97 01/31/24 19:09 70 16 97 01/31/24 17:48 98.0 F 67 18 133/72 94 L 01/31/24 16:26 97 01/31/24 14:34 98.1 F 67 20 140/65 97 01/31/24 14:12 98.1 F 67 20 140/65 97 01/31/24 13:46 65 14 95 01/31/24 13:00 65 14 149/80 95 01/31/24 12:30 67 20 153/82 93 L 01/31/24 12:00 62 19 158/82 96 01/31/24 11:30 63 23 152/84 97 01/31/24 11:04 63 21 150/80 89 L 01/31/24 11:03 62 19 01/31/24 11:00 68 21 87 L 01/31/24 10:58 69 34 H 88 L 01/31/24 10:40 60 33 H 91 L 01/31/24 10:32 63 30 H 93 L 01/31/24 09:58 94 L 01/31/24 09:43 59 L 20 151/67 96 01/31/24 09:40 97.5 F 63 27 H 151/67 95 Pain Assessment - Last Documented Pain Intensity 0 Intake and Output: Intake & Output 01/29/24 01/30/24 01/31/24 02/01/24 11:59 11:59 11:59 11:59 Intake Total 120 Balance 120 Weight 95.3 kg 93.6 kg Lab Results: Lab Results-Last 24 Hours 01/31/24 01/31/24 01/31/24 Range/Units 09:55 09:55 10:15 WBC (3.98-10.04) x10^3/uL RBC (3.93-5.22) x10^6/uL Hgb (11.2-15.7) g/dL Hct (34.1-44.9) % MCV (79.4-94.8) fL MCH (25.6-32.2) pg MCHC (32.2-35.5) g/dL RDW (11.7-14.4) % Plt Count (182-369) x10^3/uL MPV (9.4-12.3) fL Gran % (34.0-71.1) % Immature Gran % (Auto) (0.001-0.429) % Nucleat RBC Rel Count (0.00-0.2) % Eos # (Auto) (0.04-0.36) x10^3/uL Immature Gran # (Auto) (0.001-0.031) x10^3u/L Absolute Lymphs (auto) (1.18-3.74) x10^3/uL Absolute Monos (auto) (0.24-0.86) x10^3/uL Absolute Nucleated RBC (0.00-0.012) x10^3u/L Lymphocytes % (19.3-51.7) % Monocytes % (4.7-12.5) % Eosinophils % (0.7-5.8) % Basophils % (0.1-1.2) % Absolute Granulocytes (1.56-6.13) x10^3/uL Basophils # (0.01-0.08) x10^3/uL Puncture Site RIGHT RADIAL pCO2 46 H (35-45) mmHg pO2 65 L (75-100) mmHg Base Excess 4.6 H (-2.0-2.0) O2 Saturation 93.2 L (94-100) g/dF ABG pH 7.42 (7.35-7.45) ABG HCO3 29.8 H* (22-28) ABG O2 Sat (Measured) 94.9 L (95-100) % Emmanuel Test YES A-a Gradient 163 a/A Ratio 0.29 Hemoglobin 12.4 Carboxyhemoglobin 1.1 (0.0-6.9) % THgb Methemoglobin 0.7 L (1.4-1.5) % Potassium 4.1 (3.5-5.1) Temperature 37.0 C POC O2 Flow Rate 40 % Sodium (135-145) mmol/L Chloride (98-107) mmol/L Carbon Dioxide (22-30) mmol/L Anion Gap (5-15) MEQ/L BUN (7-17) mg/dL Creatinine (0.52-1.04) mg/dL Estimated GFR ML/MIN Glucose (74-106) mg/dL POC Glucometer (74 to 106) mg/dL Hemoglobin A1c (4.5-6.0) % Lactic Acid 1.1 (0.4-2.0) Calcium (8.4-10.2) mg/dL Magnesium (1.6-2.3) mg/dL Total Bilirubin (0.2-1.3) mg/dL AST (14-36) U/L ALT (0-35) U/L Alkaline Phosphatase (38-126) U/L Ammonia (9-30) umol/L Troponin I (0.000-0.033) ng/mL NT-Pro-B Natriuret Pep (<300) pg/mL Serum Total Protein (6.3-8.2) g/dL Albumin (3.5-5.0) g/dL Urine Color (Yellow) Urine Appearance (Clear) Urine pH (4.6-8.0) Ur Specific Maxie (1.005-1.030) Urine Protein (Negative) Urine Glucose (UA) (Negative) mg/dL Urine Ketones (Negative) Urine Blood (Negative) Urine Nitrite (Negative) Urine Bilirubin (Negative) Urine Urobilinogen (0.2) mg/dL Ur Leukocyte Esterase (Negative) U Hyaline Cast (Auto) (0-2) /LPF Urine Microscopic RBC (0-5) /HPF Urine Microscopic WBC (0-5) /HPF Ur Epithelial Cells (None Seen) /HPF Urine Bacteria (None Seen) /HPF Urine Culture Reflexed (NO) Influenza Type A Ag NEGATIVE (NEGATIVE) Influenza Type B Ag NEGATIVE (NEGATIVE) RSV (PCR) NEGATIVE (NEGATIVE) SARS-CoV-2 (PCR) NEGATIVE (NEGATIVE) 01/31/24 01/31/24 01/31/24 Range/Units 10:30 10:30 10:30 WBC 8.3 (3.98-10.04) x10^3/uL RBC 4.24 (3.93-5.22) x10^6/uL Hgb 11.8 (11.2-15.7) g/dL Hct 38.8 (34.1-44.9) % MCV 91.5 (79.4-94.8) fL MCH 27.8 (25.6-32.2) pg MCHC 30.4 L (32.2-35.5) g/dL RDW 15.9 H (11.7-14.4) % Plt Count 203 (182-369) x10^3/uL MPV 10.1 (9.4-12.3) fL Gran % 70.9 (34.0-71.1) % Immature Gran % (Auto) 0.7 H (0.001-0.429) % Nucleat RBC Rel Count 0.0 (0.00-0.2) % Eos # (Auto) 0.22 (0.04-0.36) x10^3/uL Immature Gran # (Auto) 0.06 H (0.001-0.031) x10^3u/L Absolute Lymphs (auto) 1.58 (1.18-3.74) x10^3/uL Absolute Monos (auto) 0.50 (0.24-0.86) x10^3/uL Absolute Nucleated RBC 0.00 (0.00-0.012) x10^3u/L Lymphocytes % 19.0 L (19.3-51.7) % Monocytes % 6.0 (4.7-12.5) % Eosinophils % 2.6 (0.7-5.8) % Basophils % 0.8 (0.1-1.2) % Absolute Granulocytes 5.90 (1.56-6.13) x10^3/uL Basophils # 0.07 (0.01-0.08) x10^3/uL Puncture Site pCO2 (35-45) mmHg pO2 (75-100) mmHg Base Excess (-2.0-2.0) O2 Saturation (94-100) g/dF ABG pH (7.35-7.45) ABG HCO3 (22-28) ABG O2 Sat (Measured) (95-100) % Emmanuel Test A-a Gradient a/A Ratio Hemoglobin Carboxyhemoglobin (0.0-6.9) % THgb Methemoglobin (1.4-1.5) % Potassium 4.0 (3.5-5.1) Temperature C POC O2 Flow Rate % Sodium 140 (135-145) mmol/L Chloride 106 (98-107) mmol/L Carbon Dioxide 27 (22-30) mmol/L Anion Gap 11.4 (5-15) MEQ/L BUN 27 H (7-17) mg/dL Creatinine 1.55 H (0.52-1.04) mg/dL Estimated GFR 32.8 ML/MIN Glucose 156 H (74-106) mg/dL POC Glucometer (74 to 106) mg/dL Hemoglobin A1c (4.5-6.0) % Lactic Acid (0.4-2.0) Calcium 9.4 (8.4-10.2) mg/dL Magnesium 2.3 (1.6-2.3) mg/dL Total Bilirubin 0.40 (0.2-1.3) mg/dL AST 25 (14-36) U/L ALT 21 (0-35) U/L Alkaline Phosphatase 121 (38-126) U/L Ammonia (9-30) umol/L Troponin I 0.016 (0.000-0.033) ng/mL NT-Pro-B Natriuret Pep 650 (<300) pg/mL Serum Total Protein 7.4 (6.3-8.2) g/dL Albumin 4.0 (3.5-5.0) g/dL Urine Color (Yellow) Urine Appearance (Clear) Urine pH (4.6-8.0) Ur Specific Maxie (1.005-1.030) Urine Protein (Negative) Urine Glucose (UA) (Negative) mg/dL Urine Ketones (Negative) Urine Blood (Negative) Urine Nitrite (Negative) Urine Bilirubin (Negative) Urine Urobilinogen (0.2) mg/dL Ur Leukocyte Esterase (Negative) U Hyaline Cast (Auto) (0-2) /LPF Urine Microscopic RBC (0-5) /HPF Urine Microscopic WBC (0-5) /HPF Ur Epithelial Cells (None Seen) /HPF Urine Bacteria (None Seen) /HPF Urine Culture Reflexed (NO) Influenza Type A Ag (NEGATIVE) Influenza Type B Ag (NEGATIVE) RSV (PCR) (NEGATIVE) SARS-CoV-2 (PCR) (NEGATIVE) 01/31/24 01/31/24 01/31/24 Range/Units 10:30 10:30 11:00 WBC (3.98-10.04) x10^3/uL RBC (3.93-5.22) x10^6/uL Hgb (11.2-15.7) g/dL Hct (34.1-44.9) % MCV (79.4-94.8) fL MCH (25.6-32.2) pg MCHC (32.2-35.5) g/dL RDW (11.7-14.4) % Plt Count (182-369) x10^3/uL MPV (9.4-12.3) fL Gran % (34.0-71.1) % Immature Gran % (Auto) (0.001-0.429) % Nucleat RBC Rel Count (0.00-0.2) % Eos # (Auto) (0.04-0.36) x10^3/uL Immature Gran # (Auto) (0.001-0.031) x10^3u/L Absolute Lymphs (auto) (1.18-3.74) x10^3/uL Absolute Monos (auto) (0.24-0.86) x10^3/uL Absolute Nucleated RBC (0.00-0.012) x10^3u/L Lymphocytes % (19.3-51.7) % Monocytes % (4.7-12.5) % Eosinophils % (0.7-5.8) % Basophils % (0.1-1.2) % Absolute Granulocytes (1.56-6.13) x10^3/uL Basophils # (0.01-0.08) x10^3/uL Puncture Site pCO2 (35-45) mmHg pO2 (75-100) mmHg Base Excess (-2.0-2.0) O2 Saturation (94-100) g/dF ABG pH (7.35-7.45) ABG HCO3 (22-28) ABG O2 Sat (Measured) (95-100) % Emmanuel Test A-a Gradient a/A Ratio Hemoglobin Carboxyhemoglobin (0.0-6.9) % THgb Methemoglobin (1.4-1.5) % Potassium (3.5-5.1) Temperature C POC O2 Flow Rate % Sodium (135-145) mmol/L Chloride (98-107) mmol/L Carbon Dioxide (22-30) mmol/L Anion Gap (5-15) MEQ/L BUN (7-17) mg/dL Creatinine (0.52-1.04) mg/dL Estimated GFR ML/MIN Glucose (74-106) mg/dL POC Glucometer (74 to 106) mg/dL Hemoglobin A1c 6.57 H (4.5-6.0) % Lactic Acid (0.4-2.0) Calcium (8.4-10.2) mg/dL Magnesium (1.6-2.3) mg/dL Total Bilirubin (0.2-1.3) mg/dL AST (14-36) U/L ALT (0-35) U/L Alkaline Phosphatase (38-126) U/L Ammonia < 9 L (9-30) umol/L Troponin I (0.000-0.033) ng/mL NT-Pro-B Natriuret Pep (<300) pg/mL Serum Total Protein (6.3-8.2) g/dL Albumin (3.5-5.0) g/dL Urine Color Yellow (Yellow) Urine Appearance Clear (Clear) Urine pH 7.0 (4.6-8.0) Ur Specific Maxie <=1.005 (1.005-1.030) Urine Protein Negative (Negative) Urine Glucose (UA) Negative (Negative) mg/dL Urine Ketones Negative (Negative) Urine Blood Negative (Negative) Urine Nitrite Negative (Negative) Urine Bilirubin Negative (Negative) Urine Urobilinogen 1.0 A (0.2) mg/dL Ur Leukocyte Esterase Negative (Negative) U Hyaline Cast (Auto) NONE SEEN (0-2) /LPF Urine Microscopic RBC 0-2 (0-5) /HPF Urine Microscopic WBC 0-2 (0-5) /HPF Ur Epithelial Cells None Seen (None Seen) /HPF Urine Bacteria None Seen (None Seen) /HPF Urine Culture Reflexed ORDERED SEPARATELY (NO) Influenza Type A Ag (NEGATIVE) Influenza Type B Ag (NEGATIVE) RSV (PCR) (NEGATIVE) SARS-CoV-2 (PCR) (NEGATIVE) 01/31/24 01/31/24 01/31/24 Range/Units 14:15 17:24 17:51 WBC (3.98-10.04) x10^3/uL RBC (3.93-5.22) x10^6/uL Hgb (11.2-15.7) g/dL Hct (34.1-44.9) % MCV (79.4-94.8) fL MCH (25.6-32.2) pg MCHC (32.2-35.5) g/dL RDW (11.7-14.4) % Plt Count (182-369) x10^3/uL MPV (9.4-12.3) fL Gran % (34.0-71.1) % Immature Gran % (Auto) (0.001-0.429) % Nucleat RBC Rel Count (0.00-0.2) % Eos # (Auto) (0.04-0.36) x10^3/uL Immature Gran # (Auto) (0.001-0.031) x10^3u/L Absolute Lymphs (auto) (1.18-3.74) x10^3/uL Absolute Monos (auto) (0.24-0.86) x10^3/uL Absolute Nucleated RBC (0.00-0.012) x10^3u/L Lymphocytes % (19.3-51.7) % Monocytes % (4.7-12.5) % Eosinophils % (0.7-5.8) % Basophils % (0.1-1.2) % Absolute Granulocytes (1.56-6.13) x10^3/uL Basophils # (0.01-0.08) x10^3/uL Puncture Site pCO2 (35-45) mmHg pO2 (75-100) mmHg Base Excess (-2.0-2.0) O2 Saturation (94-100) g/dF ABG pH (7.35-7.45) ABG HCO3 (22-28) ABG O2 Sat (Measured) (95-100) % Emmanuel Test A-a Gradient a/A Ratio Hemoglobin Carboxyhemoglobin (0.0-6.9) % THgb Methemoglobin (1.4-1.5) % Potassium (3.5-5.1) Temperature C POC O2 Flow Rate % Sodium (135-145) mmol/L Chloride (98-107) mmol/L Carbon Dioxide (22-30) mmol/L Anion Gap (5-15) MEQ/L BUN (7-17) mg/dL Creatinine (0.52-1.04) mg/dL Estimated GFR ML/MIN Glucose (74-106) mg/dL POC Glucometer 249 H (74 to 106) mg/dL Hemoglobin A1c (4.5-6.0) % Lactic Acid (0.4-2.0) Calcium (8.4-10.2) mg/dL Magnesium (1.6-2.3) mg/dL Total Bilirubin (0.2-1.3) mg/dL AST (14-36) U/L ALT (0-35) U/L Alkaline Phosphatase (38-126) U/L Ammonia (9-30) umol/L Troponin I < 0.012 0.012 (0.000-0.033) ng/mL NT-Pro-B Natriuret Pep (<300) pg/mL Serum Total Protein (6.3-8.2) g/dL Albumin (3.5-5.0) g/dL Urine Color (Yellow) Urine Appearance (Clear) Urine pH (4.6-8.0) Ur Specific Maxie (1.005-1.030) Urine Protein (Negative) Urine Glucose (UA) (Negative) mg/dL Urine Ketones (Negative) Urine Blood (Negative) Urine Nitrite (Negative) Urine Bilirubin (Negative) Urine Urobilinogen (0.2) mg/dL Ur Leukocyte Esterase (Negative) U Hyaline Cast (Auto) (0-2) /LPF Urine Microscopic RBC (0-5) /HPF Urine Microscopic WBC (0-5) /HPF Ur Epithelial Cells (None Seen) /HPF Urine Bacteria (None Seen) /HPF Urine Culture Reflexed (NO) Influenza Type A Ag (NEGATIVE) Influenza Type B Ag (NEGATIVE) RSV (PCR) (NEGATIVE) SARS-CoV-2 (PCR) (NEGATIVE) 01/31/24 02/01/24 Range/Units 21:24 03:50 WBC (3.98-10.04) x10^3/uL RBC (3.93-5.22) x10^6/uL Hgb (11.2-15.7) g/dL Hct (34.1-44.9) % MCV (79.4-94.8) fL MCH (25.6-32.2) pg MCHC (32.2-35.5) g/dL RDW (11.7-14.4) % Plt Count (182-369) x10^3/uL MPV (9.4-12.3) fL Gran % (34.0-71.1) % Immature Gran % (Auto) (0.001-0.429) % Nucleat RBC Rel Count (0.00-0.2) % Eos # (Auto) (0.04-0.36) x10^3/uL Immature Gran # (Auto) (0.001-0.031) x10^3u/L Absolute Lymphs (auto) (1.18-3.74) x10^3/uL Absolute Monos (auto) (0.24-0.86) x10^3/uL Absolute Nucleated RBC (0.00-0.012) x10^3u/L Lymphocytes % (19.3-51.7) % Monocytes % (4.7-12.5) % Eosinophils % (0.7-5.8) % Basophils % (0.1-1.2) % Absolute Granulocytes (1.56-6.13) x10^3/uL Basophils # (0.01-0.08) x10^3/uL Puncture Site Pending pCO2 45 (35-45) mmHg pO2 111 H (75-100) mmHg Base Excess 4.1 H (-2.0-2.0) O2 Saturation 97.5 (94-100) g/dF ABG pH 7.42 (7.35-7.45) ABG HCO3 29.2 H* (22-28) ABG O2 Sat (Measured) 98.9 (95-100) % Emmanuel Test Pending A-a Gradient 89 a/A Ratio 0.56 Hemoglobin 11.7 Carboxyhemoglobin 0.5 (0.0-6.9) % THgb Methemoglobin 0.8 L (1.4-1.5) % Potassium 4.5 (3.5-5.1) Temperature 37.0 C POC O2 Flow Rate 36 % Sodium (135-145) mmol/L Chloride (98-107) mmol/L Carbon Dioxide (22-30) mmol/L Anion Gap (5-15) MEQ/L BUN (7-17) mg/dL Creatinine (0.52-1.04) mg/dL Estimated GFR ML/MIN Glucose (74-106) mg/dL POC Glucometer 274 H (74 to 106) mg/dL Hemoglobin A1c (4.5-6.0) % Lactic Acid (0.4-2.0) Calcium (8.4-10.2) mg/dL Magnesium (1.6-2.3) mg/dL Total Bilirubin (0.2-1.3) mg/dL AST (14-36) U/L ALT (0-35) U/L Alkaline Phosphatase (38-126) U/L Ammonia (9-30) umol/L Troponin I (0.000-0.033) ng/mL NT-Pro-B Natriuret Pep (<300) pg/mL Serum Total Protein (6.3-8.2) g/dL Albumin (3.5-5.0) g/dL Urine Color (Yellow) Urine Appearance (Clear) Urine pH (4.6-8.0) Ur Specific Maxie (1.005-1.030) Urine Protein (Negative) Urine Glucose (UA) (Negative) mg/dL Urine Ketones (Negative) Urine Blood (Negative) Urine Nitrite (Negative) Urine Bilirubin (Negative) Urine Urobilinogen (0.2) mg/dL Ur Leukocyte Esterase (Negative) U Hyaline Cast (Auto) (0-2) /LPF Urine Microscopic RBC (0-5) /HPF Urine Microscopic WBC (0-5) /HPF Ur Epithelial Cells (None Seen) /HPF Urine Bacteria (None Seen) /HPF Urine Culture Reflexed (NO) Influenza Type A Ag (NEGATIVE) Influenza Type B Ag (NEGATIVE) RSV (PCR) (NEGATIVE) SARS-CoV-2 (PCR) (NEGATIVE) Radiology Exams: Radiology Procedures Category Date Time Status CHEST 1 VIEW (PORTABLE) Stat Exams 01/31/24 09:58 Completed ECHO W/2D AND DOPPLER [US] Routine Exams 02/01/24 16:21 Ordered HEAD WITHOUT CONTRAST [CT] Stat Exams 01/31/24 10:06 Completed Multi-Disciplinary Progress Notes: Multi-Disciplinary Progress Notes 01/31/24 11:10 (created 01/31/24 12:00) Respiratory Note by Princess Freedman PT'2 O2 SAT ON 6LPM VIA NASAL CANNULA WAS 88%. PT CHANGED OVER TO 6LPM VIA OXYMASK. O2 SAT 97% Initialized on 01/31/24 12:00 - END OF NOTE Assessment/Plan (1) Acute respiratory failure with hypoxia Current Visit: Yes Status: Acute Assessment & Plan: -2/2 to pneumonia/copd exacerbation -Supplemental oxygen with spo2 goal 88-92% -baseline 4-6L -current 6L oxymizer -RT eval -DuoNebs/steroids -Ceftriaxone/azithromycin 02/01/24: -At baseline oxygen of 4L -Continue IV steroids/abx as above Code(s): J96.01 - ACUTE RESPIRATORY FAILURE WITH HYPOXIA (2) Pneumonia Current Visit: Yes Status: Acute Assessment & Plan: -see plan for ARF -Ceftriaxone started in ED, will continue add azithromycin Code(s): J18.9 - PNEUMONIA, UNSPECIFIED ORGANISM (3) COPD with exacerbation Current Visit: Yes Status: Acute Assessment & Plan: -see plan for ARF Code(s): J44.1 - CHRONIC OBSTRUCTIVE PULMONARY DISEASE W (ACUTE) EXACERBATION (4) HTN (hypertension) Current Visit: Yes Status: Acute Assessment & Plan: -continue home medications Code(s): I10 - ESSENTIAL (PRIMARY) HYPERTENSION (5) HLD (hyperlipidemia) Current Visit: Yes Status: Acute Assessment & Plan: -continue statin Code(s): E78.5 - HYPERLIPIDEMIA, UNSPECIFIED (6) GERD (gastroesophageal reflux disease) Current Visit: Yes Status: Acute Assessment & Plan: -continue protonix Code(s): K21.9 - GASTRO-ESOPHAGEAL REFLUX DISEASE WITHOUT ESOPHAGITIS (7) Chronic renal disease Current Visit: Yes Status: Acute Assessment & Plan: -at baseline -monitor renal/lytes daily -avoid nephrotoxic medications Code(s): N18.9 - CHRONIC KIDNEY DISEASE, UNSPECIFIED (8) CHF (congestive heart failure) Current Visit: No Status: Acute Qualifiers: Heart failure type: combined systolic and diastolic Assessment & Plan: -Does not appear to be in exacerbation, no edema noted on exam -BNP 650 -Echo 08/30/23 EF 50% IMPRESSION: 1) MILD CONCENTRIC LEFT VENTRICULAR HYPERTROPHY. 2) NORMAL LEFT VENTRICULAR SYSTOLIC FUNCTION. 3) CALCIFIC AORTIC SCLEROSIS WITH MOST LIKELY MILD AORTIC STENOSIS. 4) DIASTOLIC DYSFUNCTION. 5) MILD MITRAL REGURGITATION. 6) MILD AORTIC INSUFFICIENCY. 7) MILD TRICUSPID REGURGITATION. -Follows with Dr. 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 Current Visit: No Status: Chronic Assessment & Plan: -continue home meds Aricept and memantine Code(s): G30.9 - ALZHEIMER'S DISEASE, UNSPECIFIED; F02.80 - DEM IN OTH DIS CLASSD ELSWHR,UNSP SEV,W/O BEH/PSYCH/MOOD/ANX (10) Diabetes mellitus Current Visit: Yes Status: Acute Assessment & Plan: -Continue lispro/Glargine - Daughter states she uses SSI at home -mechanical soft ADA diet/ honey thickened liquids Code(s): E11.9 - TYPE 2 DIABETES MELLITUS WITHOUT COMPLICATIONS (11) Afib Current Visit: Yes Status: Acute Assessment & Plan: -Continue Eliquis -Of note patient with pacemaker/defib -tele Code(s): I48.91 - UNSPECIFIED ATRIAL FIBRILLATION (12) MARIPOSA (obstructive sleep apnea) Current Visit: Yes Status: Acute Assessment & Plan: -continue BIPAP VTE: Eliquis PPI: protonix Dispo: 1-2 days Code status: Full Code Code(s): G47.33 - OBSTRUCTIVE SLEEP APNEA (ADULT) (PEDIATRIC) Code(s): J96.01 - ACUTE RESPIRATORY FAILURE WITH HYPOXIA (2) Pneumonia Current Visit: Yes Status: Acute Code(s): J18.9 - PNEUMONIA, UNSPECIFIED ORGANISM (3) COPD with exacerbation Current Visit: Yes Status: Acute Code(s): J44.1 - CHRONIC OBSTRUCTIVE PULMONARY DISEASE W (ACUTE) EXACERBATION (4) HTN (hypertension) Current Visit: Yes Status: Acute Code(s): I10 - ESSENTIAL (PRIMARY) HYPERTENSION (5) HLD (hyperlipidemia) Current Visit: Yes Status: Acute Code(s): E78.5 - HYPERLIPIDEMIA, UNSPECIFIED (6) GERD (gastroesophageal reflux disease) Current Visit: Yes Status: Acute Code(s): K21.9 - GASTRO-ESOPHAGEAL REFLUX DISEASE WITHOUT ESOPHAGITIS (7) Chronic renal disease Current Visit: Yes Status: Acute Code(s): N18.9 - CHRONIC KIDNEY DISEASE, UNSPECIFIED (8) CHF (congestive heart failure) Current Visit: No Status: Acute Qualifiers: Heart failure type: combined systolic and diastolic Code(s): I50.9 - HEART FAILURE, UNSPECIFIED (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
[2024-02-01 05:35] LABS: ALBUMIN 3.9 g/dL (3.5-5.0); ANION GAP 12.6 MEQ/L (5-15); BILIRUBIN,TOTAL 0.4 mg/dL (0.2-1.3); Calcium 9.4 mg/dL (8.4-10.2); Creatinine 1 1.75 mg/dL (0.52-1.04); EST GLOMERULAR FILTRATION RATE 28.4 ML/MIN; Potassium 4.4 mmol/L (3.5-5.1)
[2024-02-01] MEDS: solu-MEDROL 40 MG, Sterile H2O 10 ml 1 ML IV SCH (06:24)
[2024-02-01] MEDS ORDERED: PATIENT OWN MEDICATION IH SCH (07:00)
[2024-02-01] MEDS ORDERED: NON-FORMULARY ITEM (Donepezil Hcl [Aricept] 5 MG Tablet) PO SCH (10:00)
[2024-02-01] MEDS ORDERED: NON-FORMULARY ITEM (Fluticasone/Umeclidin/Vilanter [Trelegy Ellipta 100-62.5-25] 1 EACH Bl IH SCH (10:00)
[2024-02-01] MEDS ORDERED: NON-FORMULARY ITEM (Losartan Potassium [Cozaar] 100 MG Tablet) PO SCH (10:00)
[2024-02-01] MEDS ORDERED: BABY ASPIRIN 81 MG CHEW PO SCH (10:00)
[2024-02-01] MEDS: Lexapro PO SCH (10:22)
[2024-02-01] MEDS: FOLATE 1 MG PO SCH (10:23)
[2024-02-01] MEDS: ROCEPHIN 1 GM / 100 ML NaCl 1 GM/100 ML IVPB IV SCH (10:25)
[2024-02-02 01:13] LABS: ABG SITE LEFT BRACHIAL
[2024-02-02 04:54] LABS: Absolute Neutrophil Ct (ANC) 10.15 x10^3/uL (1.56-6.13); BASOPHIL % 0.3 % (0.1-1.2); Basophil (Absolute #) 0.03 x10^3/uL (0.01-0.08); Eosinophil (Absolute #) 0 x10^3/uL (0.04-0.36); Hematocrit 36.1 % (34.1-44.9); Hemoglobin 11.2 g/dL (11.2-15.7); IMMATURE GRAN # 0.12 x10^3u/L (0.001-0.031); Lymphocytes % 6.8 % (19.3-51.7); Mean Cell Volume 90.3 fL (79.4-94.8); Mean Platelet Volume 10.6 fL (9.4-12.3); Monocyte (Absolute #) 0.67 x10^3/uL (0.24-0.86); Monocytes % 5.7 % (4.7-12.5); Neutrophil % 86.2 % (34.0-71.1); Platelet Count 219 x10^3/uL (182-369); Red Cell Distribution Width 15.9 % (11.7-14.4); White Blood Count 11.8 x10^3/uL (3.98-10.04)
[2024-02-02 05:08] LABS: ALBUMIN 3.8 g/dL (3.5-5.0); ANION GAP 13.1 MEQ/L (5-15); BILIRUBIN,TOTAL 0.2 mg/dL (0.2-1.3); Calcium 9.2 mg/dL (8.4-10.2); Creatinine 1 1.62 mg/dL (0.52-1.04); EST GLOMERULAR FILTRATION RATE 31.1 ML/MIN; Potassium 4.2 mmol/L (3.5-5.1)
--- NOTE | 2024-02-02 05:26 | PCM.NOTE ---
Date and Time: 02/02/24 0525 Subjective Assessment: is a 83 year old female with a pmhx of CVA, CHF, COPD (4-6L oxygen baseline), MARIPOSA (BIPAP at night), HTN, AD, IBS, OA, chronic renal failure (h/o nephrectomy), IBS, HLD, AFIB (pacemaker/eliquis), GERD, and DM who presented to ED 01/31/24 with a one day history of increased shortness of breath and fever. Daughter Glenna is at bedside and providing history - reports that patient was in her usual state of health until last night when she noticed her gait was a bit off, she seemed more short of breath, and her lips had a blueish tint to them. When she checked her spo2 it was in the 50's. At that time she turned her oxygen up to 15L and was able to maintain spo2 in the 80's. Patient is not fond of hospitals so she was trying to manage at home. Denies fevers and recent sick contacts. She has had a cough with thick brown sputum. Patient does need to have a mechanical soft diet with honey thickened liquids. Denies fever, cp, abdominal pain, BUSTOS, dizziness, N/V/D. Patient follows with Dr. Young (pulm) and Dr. Corea (cardiology).Upon arrival to ED patient was tachypneic and hypertensive. Oxygen saturations dipping into the 80's. Patient placed on 6L oxymask. CXR showing RML and RLL infiltrates. Head CT negative for acute findings. Lab findings remarkable for elevated creat of 1.55 which is better than her baseline of (1.6-1.7). BNP 650. Trops x 1 WNL. Respiratory panel negative. Patient given Ceftriaxone in ED. Plan for admission for acute respiratory failure secondary to pneumonia/copd exacerbation. Cardiology consulted in ED for a run of wide complex tachycardia concerning for VT.Echocardiogram earlier this year showed normal LV size and function, normal LVEF and only mild aortic stenosis. Recommendations to monitor on tele and repeat echo. 02/01/24: Met with patient and daughter Glenna bedside. Endorses improvement in dyspnea and cough. At baseline oxygen. Lung auscultation with exp wheezing bilaterally. Plan to continue steroids/abx. 02/02/24: Met with patient bedside. Endorses improved dyspnea, cough with increased production - yellow. Remains at baseline oxygen. Lung sounds with fine crackles bilaterally on auscultation, no wheezes. Plan for repeat CXR tomorrow. Continue IV steroid/abx. - Review of Systems Constitutional: No Symptoms Eyes: No Symptoms, Foreign Body Sensation Respiratory: Cough, Short Of Breath Cardiac: No Symptoms Abdominal/Gastrointestinal: No Symptoms Genitourinary Symptoms: No Symptoms Musculoskeletal: No Symptoms Skin: No Symptoms Neurological: No Symptoms Psychological: No Symptoms Endocrine: No Symptoms Hematologic/Lymphatic: No Symptoms Immunological/Allergic: No Symptoms Objective Exam General Appearance: no apparent distress Neurologic Exam: alert, oriented x 3, cooperative Skin Exam: pale Eye Exam: PERRL Ears, Nose, Throat Exam: normal ENT inspection, moist mucous membranes Neck Exam: normal inspection Respiratory Exam: crackles/rales Cardiovascular Exam: regular rate/rhythm, normal heart sounds Gastrointestinal/Abdomen Exam: soft, normal bowel sounds Extremity Exam: normal inspection Back Exam: normal inspection Pelvic Exam: deferred Rectal Exam: deferred Objective Data Vital Signs: Vital Signs - 24 hr Temp Pulse Resp BP Pulse Ox 02/02/24 04:00 99.1 F 60 20 165/77 98 02/01/24 23:53 98.5 F 70 20 144/70 96 02/01/24 20:00 98.1 F 65 21 146/70 96 02/01/24 19:02 62 22 97 02/01/24 16:00 98.2 F 67 16 124/62 95 02/01/24 12:52 74 22 97 02/01/24 11:35 98.2 F 63 16 147/74 93 L 02/01/24 08:38 97 02/01/24 07:07 98.1 F 60 16 131/62 94 L 02/01/24 07:00 60 20 97 Pain Assessment - Last Documented Pain Intensity 0 Intake and Output: Intake & Output 01/30/24 01/31/24 02/01/24 02/02/24 11:59 11:59 11:59 11:59 Intake Total 870 1140 Output Total 1350 Balance 870 -210 Weight 95.3 kg 93.1 kg Lab Results: Lab Results-Last 24 Hours 02/01/24 02/01/24 02/01/24 Range/Units 03:50 04:28 07:02 WBC (3.98-10.04) x10^3/uL RBC (3.93-5.22) x10^6/uL Hgb (11.2-15.7) g/dL Hct (34.1-44.9) % MCV (79.4-94.8) fL MCH (25.6-32.2) pg MCHC (32.2-35.5) g/dL RDW (11.7-14.4) % Plt Count (182-369) x10^3/uL MPV (9.4-12.3) fL Gran % (34.0-71.1) % Immature Gran % (Auto) (0.001-0.429) % Nucleat RBC Rel Count (0.00-0.2) % Eos # (Auto) (0.04-0.36) x10^3/uL Immature Gran # (Auto) (0.001-0.031) x10^3u/L Absolute Lymphs (auto) (1.18-3.74) x10^3/uL Absolute Monos (auto) (0.24-0.86) x10^3/uL Absolute Nucleated RBC (0.00-0.012) x10^3u/L Lymphocytes % (19.3-51.7) % Monocytes % (4.7-12.5) % Eosinophils % (0.7-5.8) % Basophils % (0.1-1.2) % Absolute Granulocytes (1.56-6.13) x10^3/uL Basophils # (0.01-0.08) x10^3/uL Puncture Site LEFT BRACHIAL Emmanuel Test NOT APPLICABLE Sodium 139 (135-145) mmol/L Potassium 4.4 (3.5-5.1) mmol/L Chloride 102 (98-107) mmol/L Carbon Dioxide 29 (22-30) mmol/L Anion Gap 12.6 (5-15) MEQ/L BUN 29 H (7-17) mg/dL Creatinine 1.75 H (0.52-1.04) mg/dL Estimated GFR 28.4 ML/MIN Glucose 222 H (74-106) mg/dL POC Glucometer 211 H (74 to 106) mg/dL Calcium 9.4 (8.4-10.2) mg/dL Total Bilirubin 0.40 (0.2-1.3) mg/dL AST 29 (14-36) U/L ALT 30 (0-35) U/L Alkaline Phosphatase 109 (38-126) U/L NT-Pro-B Natriuret Pep 1640 (<300) pg/mL Serum Total Protein 7.0 (6.3-8.2) g/dL Albumin 3.9 (3.5-5.0) g/dL 02/01/24 02/01/24 02/01/24 Range/Units 11:26 16:29 20:40 WBC (3.98-10.04) x10^3/uL RBC (3.93-5.22) x10^6/uL Hgb (11.2-15.7) g/dL Hct (34.1-44.9) % MCV (79.4-94.8) fL MCH (25.6-32.2) pg MCHC (32.2-35.5) g/dL RDW (11.7-14.4) % Plt Count (182-369) x10^3/uL MPV (9.4-12.3) fL Gran % (34.0-71.1) % Immature Gran % (Auto) (0.001-0.429) % Nucleat RBC Rel Count (0.00-0.2) % Eos # (Auto) (0.04-0.36) x10^3/uL Immature Gran # (Auto) (0.001-0.031) x10^3u/L Absolute Lymphs (auto) (1.18-3.74) x10^3/uL Absolute Monos (auto) (0.24-0.86) x10^3/uL Absolute Nucleated RBC (0.00-0.012) x10^3u/L Lymphocytes % (19.3-51.7) % Monocytes % (4.7-12.5) % Eosinophils % (0.7-5.8) % Basophils % (0.1-1.2) % Absolute Granulocytes (1.56-6.13) x10^3/uL Basophils # (0.01-0.08) x10^3/uL Puncture Site Emmanuel Test Sodium (135-145) mmol/L Potassium (3.5-5.1) mmol/L Chloride (98-107) mmol/L Carbon Dioxide (22-30) mmol/L Anion Gap (5-15) MEQ/L BUN (7-17) mg/dL Creatinine (0.52-1.04) mg/dL Estimated GFR ML/MIN Glucose (74-106) mg/dL POC Glucometer 323 H 231 H 208 H (74 to 106) mg/dL Calcium (8.4-10.2) mg/dL Total Bilirubin (0.2-1.3) mg/dL AST (14-36) U/L ALT (0-35) U/L Alkaline Phosphatase (38-126) U/L NT-Pro-B Natriuret Pep (<300) pg/mL Serum Total Protein (6.3-8.2) g/dL Albumin (3.5-5.0) g/dL 02/02/24 Range/Units 04:25 WBC 11.8 H (3.98-10.04) x10^3/uL RBC 4.00 (3.93-5.22) x10^6/uL Hgb 11.2 (11.2-15.7) g/dL Hct 36.1 (34.1-44.9) % MCV 90.3 (79.4-94.8) fL MCH 28.0 (25.6-32.2) pg MCHC 31.0 L (32.2-35.5) g/dL RDW 15.9 H (11.7-14.4) % Plt Count 219 (182-369) x10^3/uL MPV 10.6 (9.4-12.3) fL Gran % 86.2 H (34.0-71.1) % Immature Gran % (Auto) 1.0 H (0.001-0.429) % Nucleat RBC Rel Count 0.0 (0.00-0.2) % Eos # (Auto) 0 L (0.04-0.36) x10^3/uL Immature Gran # (Auto) 0.12 H (0.001-0.031) x10^3u/L Absolute Lymphs (auto) 0.80 L (1.18-3.74) x10^3/uL Absolute Monos (auto) 0.67 (0.24-0.86) x10^3/uL Absolute Nucleated RBC 0.00 (0.00-0.012) x10^3u/L Lymphocytes % 6.8 L (19.3-51.7) % Monocytes % 5.7 (4.7-12.5) % Eosinophils % 0.0 L (0.7-5.8) % Basophils % 0.3 (0.1-1.2) % Absolute Granulocytes 10.15 H (1.56-6.13) x10^3/uL Basophils # 0.03 (0.01-0.08) x10^3/uL Puncture Site Emmanuel Test Sodium (135-145) mmol/L Potassium (3.5-5.1) mmol/L Chloride (98-107) mmol/L Carbon Dioxide (22-30) mmol/L Anion Gap (5-15) MEQ/L BUN (7-17) mg/dL Creatinine (0.52-1.04) mg/dL Estimated GFR ML/MIN Glucose (74-106) mg/dL POC Glucometer (74 to 106) mg/dL Calcium (8.4-10.2) mg/dL Total Bilirubin (0.2-1.3) mg/dL AST (14-36) U/L ALT (0-35) U/L Alkaline Phosphatase (38-126) U/L NT-Pro-B Natriuret Pep (<300) pg/mL Serum Total Protein (6.3-8.2) g/dL Albumin (3.5-5.0) g/dL Radiology Exams: Radiology Procedures Category Date Time Status CHEST 1 VIEW (PORTABLE) Stat Exams 01/31/24 09:58 Completed ECHO W/2D AND DOPPLER [US] Routine Exams 02/01/24 16:21 Taken HEAD WITHOUT CONTRAST [CT] Stat Exams 01/31/24 10:06 Completed Assessment/Plan (1) Acute respiratory failure with hypoxia Current Visit: Yes Status: Acute Assessment & Plan: -2/2 to pneumonia/copd exacerbation -Supplemental oxygen with spo2 goal 88-92% -baseline 4-6L -current 6L oxymizer -RT eval -DuoNebs/steroids -Ceftriaxone/azithromycin 02/01/24: -At baseline oxygen of 4L -Continue IV steroids/abx as above 02/02/24: -CXR 02/03/24 -Continue IV steroid/abx, if CXR showing improvement will change to oral stero id/abx Code(s): J96.01 - ACUTE RESPIRATORY FAILURE WITH HYPOXIA (2) Pneumonia Current Visit: Yes Status: Acute Assessment & Plan: -see plan for ARF -Ceftriaxone started in ED, will continue add azithromycin Code(s): J18.9 - PNEUMONIA, UNSPECIFIED ORGANISM (3) COPD with exacerbation Current Visit: Yes Status: Acute Assessment & Plan: -see plan for ARF Code(s): J44.1 - CHRONIC OBSTRUCTIVE PULMONARY DISEASE W (ACUTE) EXACERBATION (4) HTN (hypertension) Current Visit: Yes Status: Acute Assessment & Plan: -continue home medications Code(s): I10 - ESSENTIAL (PRIMARY) HYPERTENSION (5) HLD (hyperlipidemia) Current Visit: Yes Status: Acute Assessment & Plan: -continue statin Code(s): E78.5 - HYPERLIPIDEMIA, UNSPECIFIED (6) GERD (gastroesophageal reflux disease) Current Visit: Yes Status: Acute Assessment & Plan: -continue protonix Code(s): K21.9 - GASTRO-ESOPHAGEAL REFLUX DISEASE WITHOUT ESOPHAGITIS (7) Chronic renal disease Current Visit: Yes Status: Acute Assessment & Plan: -at baseline -monitor renal/lytes daily -avoid nephrotoxic medications Code(s): N18.9 - CHRONIC KIDNEY DISEASE, UNSPECIFIED (8) CHF (congestive heart failure) Current Visit: No Status: Acute Qualifiers: Heart failure type: combined systolic and diastolic Assessment & Plan: -Does not appear to be in exacerbation, no edema noted on exam -BNP 650 -Echo 08/30/23 EF 50% IMPRESSION: 1) MILD CONCENTRIC LEFT VENTRICULAR HYPERTROPHY. 2) NORMAL LEFT VENTRICULAR SYSTOLIC FUNCTION. 3) CALCIFIC AORTIC SCLEROSIS WITH MOST LIKELY MILD AORTIC STENOSIS. 4) DIASTOLIC DYSFUNCTION. 5) MILD MITRAL REGURGITATION. 6) MILD AORTIC INSUFFICIENCY. 7) MILD TRICUSPID REGURGITATION. -Follows with Dr. 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 Current Visit: No Status: Chronic Assessment & Plan: -continue home meds Aricept and memantine Code(s): G30.9 - ALZHEIMER'S DISEASE, UNSPECIFIED; F02.80 - DEM IN OTH DIS CLASSD ELSWHR,UNSP SEV,W/O BEH/PSYCH/MOOD/ANX (10) Diabetes mellitus Current Visit: Yes Status: Acute Assessment & Plan: -Continue lispro/Glargine - Daughter states she uses SSI at home -mechanical soft ADA diet/ honey thickened liquids Code(s): E11.9 - TYPE 2 DIABETES MELLITUS WITHOUT COMPLICATIONS (11) Afib Current Visit: Yes Status: Acute Assessment & Plan: -Continue Eliquis -Of note patient with pacemaker/defib -tele Code(s): I48.91 - UNSPECIFIED ATRIAL FIBRILLATION (12) MARIPOSA (obstructive sleep apnea) Current Visit: Yes Status: Acute Assessment & Plan: -continue BIPAP VTE: Eliquis PPI: protonix Dispo: 1-2 days Code(s): J96.01 - ACUTE RESPIRATORY FAILURE WITH HYPOXIA (2) Pneumonia Current Visit: Yes Status: Acute Code(s): J18.9 - PNEUMONIA, UNSPECIFIED ORGANISM (3) COPD with exacerbation Current Visit: Yes Status: Acute Code(s): J44.1 - CHRONIC OBSTRUCTIVE PULMONARY DISEASE W (ACUTE) EXACERBATION (4) HTN (hypertension) Current Visit: Yes Status: Acute Code(s): I10 - ESSENTIAL (PRIMARY) HYPERTENSION (5) HLD (hyperlipidemia) Current Visit: Yes Status: Acute Code(s): E78.5 - HYPERLIPIDEMIA, UNSPECIFIED (6) GERD (gastroesophageal reflux disease) Current Visit: Yes Status: Acute Code(s): K21.9 - GASTRO-ESOPHAGEAL REFLUX DISEASE WITHOUT ESOPHAGITIS (7) Chronic renal disease Current Visit: Yes Status: Acute Code(s): N18.9 - CHRONIC KIDNEY DISEASE, UNSPECIFIED (8) CHF (congestive heart failure) Current Visit: No Status: Acute Qualifiers: Heart failure type: combined systolic and diastolic Code(s): I50.9 - HEART FAILURE, UNSPECIFIED (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
[2024-02-02] MEDS: CHLORASEPTIC SPRAY 180 ML PO PRN (10:40)
[2024-02-02 12:29] LABS: A-aADO2 99; ABG HEMOGLOBIN 12.2; ABG POTASSIUM 4.4 (3.5-5.1); ABG SITE LEFT RADIAL; ARTERIAL BLD GAS O2 SATURATION 98.8 % (95-100); ARTERIAL BLOOD GAS BASE EXCESS 0.2 (-2.0-2.0); ARTERIAL BLOOD GAS FIO2 36 %; ARTERIAL BLOOD GAS PCO2 46 mmHg (35-45); ARTERIAL BLOOD GAS PO2 100 mmHg (75-100); ARTERIAL BLOOD GAS pH 7.36 (7.35-7.45); CARBOXYHEMOGLOBIN 0.6 % THgb (0.0-6.9); HGB O2 SAT 97.5 g/dF (94-100); Methhemoglobin 0.7 % (1.4-1.5)
--- NOTE | 2024-02-03 05:17 | PCM.NOTE ---
Date and Time: 02/03/24 0516 Subjective Assessment: is a 83 year old female with a pmhx of CVA, CHF, COPD (4-6L oxygen baseline), MARIPOSA (BIPAP at night), HTN, AD, IBS, OA, chronic renal failure (h/o nephrectomy), IBS, HLD, AFIB (pacemaker/eliquis), GERD, and DM who presented to ED 01/31/24 with a one day history of increased shortness of breath and fever. Daughter Glenna is at bedside and providing history - reports that patient was in her usual state of health until last night when she noticed her gait was a bit off, she seemed more short of breath, and her lips had a blueish tint to them. When she checked her spo2 it was in the 50's. At that time she turned her oxygen up to 15L and was able to maintain spo2 in the 80's. Patient is not fond of hospitals so she was trying to manage at home. Denies fevers and recent sick contacts. She has had a cough with thick brown sputum. Patient does need to have a mechanical soft diet with honey thickened liquids. Denies fever, cp, abdominal pain, BUSTOS, dizziness, N/V/D. Patient follows with Dr. Young (pulm) and Dr. Corea (cardiology).Upon arrival to ED patient was tachypneic and hypertensive. Oxygen saturations dipping into the 80's. Patient placed on 6L oxymask. CXR showing RML and RLL infiltrates. Head CT negative for acute findings. Lab findings remarkable for elevated creat of 1.55 which is better than her baseline of (1.6-1.7). BNP 650. Trops x 1 WNL. Respiratory panel negative. Patient given Ceftriaxone in ED. Plan for admission for acute respiratory failure secondary to pneumonia/copd exacerbation. Cardiology consulted in ED for a run of wide complex tachycardia concerning for VT.Echocardiogram earlier this year showed normal LV size and function, normal LVEF and only mild aortic stenosis. Recommendations to monitor on tele and repeat echo. 02/01/24: Met with patient and daughter Glenna bedside. Endorses improvement in dyspnea and cough. At baseline oxygen. Lung auscultation with exp wheezing bilaterally. Plan to continue steroids/abx. 02/02/24: Met with patient bedside. Endorses improved dyspnea, cough with increased production - yellow. Remains at baseline oxygen. Lung sounds with fine crackles bilaterally on auscultation, no wheezes. Plan for repeat CXR tomorrow. Continue IV steroid/abx. 02/03/24: No overnight events noted. Continued productive cough and dyspnea. Plan for repeat CXR today. IV to oral steroids. - Review of Systems Constitutional: No Symptoms Eyes: No Symptoms Ears, Nose, & Throat: No Symptoms Respiratory: Cough, Short Of Breath Cardiac: No Symptoms Abdominal/Gastrointestinal: No Symptoms Genitourinary Symptoms: No Symptoms Musculoskeletal: No Symptoms Skin: No Symptoms Neurological: No Symptoms Psychological: No Symptoms Endocrine: No Symptoms Hematologic/Lymphatic: No Symptoms Immunological/Allergic: No Symptoms Objective Exam General Appearance: no apparent distress Neurologic Exam: alert, cooperative, confusion Skin Exam: pale Eye Exam: PERRL Ears, Nose, Throat Exam: normal ENT inspection Neck Exam: normal inspection Respiratory Exam: crackles/rales Cardiovascular Exam: regular rate/rhythm, normal heart sounds Gastrointestinal/Abdomen Exam: soft, normal bowel sounds Extremity Exam: normal inspection Back Exam: normal inspection Pelvic Exam: deferred Rectal Exam: deferred Objective Data Vital Signs: Vital Signs - 24 hr Temp Pulse Resp BP Pulse Ox 02/03/24 04:00 98.9 F 62 20 187/90 98 02/02/24 23:39 97.1 F 60 20 179/81 99 02/02/24 20:00 97.8 F 64 20 159/74 94 L 02/02/24 19:00 60 24 97 02/02/24 15:51 98.4 F 63 18 134/68 96 02/02/24 11:34 98.0 F 72 16 132/70 98 02/02/24 06:56 97.9 F 78 16 150/72 95 Pain Assessment - Last Documented Pain Intensity 0 Intake and Output: Intake & Output 01/31/24 02/01/24 02/02/24 02/03/24 11:59 11:59 11:59 11:59 Intake Total 870 1620 680 Output Total 1350 2750 Balance 870 270 -2070 Weight 95.3 kg 93.1 kg 92.8 kg 92.8 kg Lab Results: Lab Results-Last 24 Hours 02/02/24 02/02/24 02/02/24 Range/Units 04:25 07:26 11:47 Puncture Site pCO2 (35-45) mmHg pO2 (75-100) mmHg Base Excess (-2.0-2.0) O2 Saturation (94-100) g/dF ABG pH (7.35-7.45) ABG HCO3 (22-28) ABG O2 Sat (Measured) (95-100) % Emmanuel Test A-a Gradient a/A Ratio Hemoglobin Carboxyhemoglobin (0.0-6.9) % THgb Methemoglobin (1.4-1.5) % Temperature C POC O2 Flow Rate % Sodium 140 (135-145) mmol/L Potassium 4.2 (3.5-5.1) mmol/L Chloride 103 (98-107) mmol/L Carbon Dioxide 28 (22-30) mmol/L Anion Gap 13.1 (5-15) MEQ/L BUN 38 H (7-17) mg/dL Creatinine 1.62 H (0.52-1.04) mg/dL Estimated GFR 31.1 ML/MIN Glucose 269 H (74-106) mg/dL POC Glucometer 243 H 325 H (74 to 106) mg/dL Calcium 9.2 (8.4-10.2) mg/dL Total Bilirubin 0.20 (0.2-1.3) mg/dL AST 26 (14-36) U/L ALT 25 (0-35) U/L Alkaline Phosphatase 93 (38-126) U/L Serum Total Protein 7.0 (6.3-8.2) g/dL Albumin 3.8 (3.5-5.0) g/dL 02/02/24 02/02/24 02/02/24 Range/Units 12:20 16:06 21:08 Puncture Site LEFT RADIAL pCO2 46 H (35-45) mmHg pO2 100 (75-100) mmHg Base Excess 0.2 (-2.0-2.0) O2 Saturation 97.5 (94-100) g/dF ABG pH 7.36 (7.35-7.45) ABG HCO3 26.0 (22-28) ABG O2 Sat (Measured) 98.8 (95-100) % Emmanuel Test NOT APPLICABLE A-a Gradient 99 a/A Ratio 0.50 Hemoglobin 12.2 Carboxyhemoglobin 0.6 (0.0-6.9) % THgb Methemoglobin 0.7 L (1.4-1.5) % Temperature 37.0 C POC O2 Flow Rate 36 % Sodium (135-145) mmol/L Potassium 4.4 (3.5-5.1) mmol/L Chloride (98-107) mmol/L Carbon Dioxide (22-30) mmol/L Anion Gap (5-15) MEQ/L BUN (7-17) mg/dL Creatinine (0.52-1.04) mg/dL Estimated GFR ML/MIN Glucose (74-106) mg/dL POC Glucometer 327 H 264 H (74 to 106) mg/dL Calcium (8.4-10.2) mg/dL Total Bilirubin (0.2-1.3) mg/dL AST (14-36) U/L ALT (0-35) U/L Alkaline Phosphatase (38-126) U/L Serum Total Protein (6.3-8.2) g/dL Albumin (3.5-5.0) g/dL Radiology Exams: Radiology Procedures Category Date Time Status ECHO W/2D AND DOPPLER [US] Routine Exams 02/01/24 16:21 Taken Multi-Disciplinary Progress Notes: Multi-Disciplinary Progress Notes 02/02/24 10:20 Case Management Note by Jenny Sotelo S/W PATIENT'S DAUGHTER- SHE CONTINUES TO DENY ANY NEW NEEDS AT TIME OF DC. SHE IS STILL WAITING TO DECIDE ON [facility] AT THIS TIME. NO OTHER NEW NEEDS IDENTIFIED AT THIS TIME Initialized on 02/02/24 10:20 - END OF NOTE Assessment/Plan (1) Acute respiratory failure with hypoxia Current Visit: Yes Status: Acute Assessment & Plan: -2/2 to pneumonia/copd exacerbation -Supplemental oxygen with spo2 goal 88-92% -baseline 4-6L -current 6L oxymizer -RT eval -DuoNebs/steroids -Ceftriaxone/azithromycin 02/01/24: -At baseline oxygen of 4L -Continue IV steroids/abx as above 02/02/24: -CXR 02/03/24 -Continue IV steroid/abx, if CXR showing improvement will change to oral steroid/abx 02/02: -CXR pending -Solumedrol changed to prednisone -Continue txt for pneumonia Code(s): J96.01 - ACUTE RESPIRATORY FAILURE WITH HYPOXIA (2) Pneumonia Current Visit: Yes Status: Acute Assessment & Plan: -see plan for ARF -Ceftriaxone started in ED, will continue add azithromycin 02/02: dc azithromycin Code(s): J18.9 - PNEUMONIA, UNSPECIFIED ORGANISM (3) COPD with exacerbation Current Visit: Yes Status: Acute Assessment & Plan: -see plan for ARF Code(s): J44.1 - CHRONIC OBSTRUCTIVE PULMONARY DISEASE W (ACUTE) EXACERBATION (4) HTN (hypertension) Current Visit: Yes Status: Acute Assessment & Plan: -continue home medications Code(s): I10 - ESSENTIAL (PRIMARY) HYPERTENSION (5) HLD (hyperlipidemia) Current Visit: Yes Status: Acute Assessment & Plan: -continue statin Code(s): E78.5 - HYPERLIPIDEMIA, UNSPECIFIED (6) GERD (gastroesophageal reflux disease) Current Visit: Yes Status: Acute Assessment & Plan: -continue protonix Code(s): K21.9 - GASTRO-ESOPHAGEAL REFLUX DISEASE WITHOUT ESOPHAGITIS (7) Chronic renal disease Current Visit: Yes Status: Acute Assessment & Plan: -at baseline -monitor renal/lytes daily -avoid nephrotoxic medications Code(s): N18.9 - CHRONIC KIDNEY DISEASE, UNSPECIFIED (8) CHF (congestive heart failure) Current Visit: No Status: Acute Qualifiers: Heart failure type: combined systolic and diastolic Assessment & Plan: -Does not appear to be in exacerbation, no edema noted on exam -BNP 650 -Echo 08/30/23 EF 50% IMPRESSION: 1) MILD CONCENTRIC LEFT VENTRICULAR HYPERTROPHY. 2) NORMAL LEFT VENTRICULAR SYSTOLIC FUNCTION. 3) CALCIFIC AORTIC SCLEROSIS WITH MOST LIKELY MILD AORTIC STENOSIS. 4) DIASTOLIC DYSFUNCTION. 5) MILD MITRAL REGURGITATION. 6) MILD AORTIC INSUFFICIENCY. 7) MILD TRICUSPID REGURGITATION. -Follows with Dr. 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 Current Visit: No Status: Chronic Assessment & Plan: -continue home meds Aricept and memantine Code(s): G30.9 - ALZHEIMER'S DISEASE, UNSPECIFIED; F02.80 - DEM IN OTH DIS CLASSD ELSWHR,UNSP SEV,W/O BEH/PSYCH/MOOD/ANX (10) Diabetes mellitus Current Visit: Yes Status: Acute Assessment & Plan: -Continue lispro/Glargine - Daughter states she uses SSI at home -mechanical soft ADA diet/ honey thickened liquids Code(s): E11.9 - TYPE 2 DIABETES MELLITUS WITHOUT COMPLICATIONS (11) Afib Current Visit: Yes Status: Acute Assessment & Plan: -Continue Eliquis -Of note patient with pacemaker/defib -tele Code(s): I48.91 - UNSPECIFIED ATRIAL FIBRILLATION (12) MARIPOSA (obstructive sleep apnea) Current Visit: Yes Status: Acute Assessment & Plan: -continue BIPAP VTE: Eliquis PPI: protonix Dispo: 1-2 days Code(s): J96.01 - ACUTE RESPIRATORY FAILURE WITH HYPOXIA Code(s): J96.01 - ACUTE RESPIRATORY FAILURE WITH HYPOXIA (2) Pneumonia Current Visit: Yes Status: Acute Code(s): J18.9 - PNEUMONIA, UNSPECIFIED ORGANISM (3) COPD with exacerbation Current Visit: Yes Status: Acute Code(s): J44.1 - CHRONIC OBSTRUCTIVE PULMONARY DISEASE W (ACUTE) EXACERBATION (4) HTN (hypertension) Current Visit: Yes Status: Acute Code(s): I10 - ESSENTIAL (PRIMARY) HYPERTENSION (5) HLD (hyperlipidemia) Current Visit: Yes Status: Acute Code(s): E78.5 - HYPERLIPIDEMIA, UNSPECIFIED (6) GERD (gastroesophageal reflux disease) Current Visit: Yes Status: Acute Code(s): K21.9 - GASTRO-ESOPHAGEAL REFLUX DISEASE WITHOUT ESOPHAGITIS (7) Chronic renal disease Current Visit: Yes Status: Acute Code(s): N18.9 - CHRONIC KIDNEY DISEASE, UNSPECIFIED (8) CHF (congestive heart failure) Current Visit: No Status: Acute Qualifiers: Heart failure type: combined systolic and diastolic Code(s): I50.9 - HEART FAILURE, UNSPECIFIED (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
[2024-02-03 05:28] LABS: BASOPHIL % 0.3 % (0.1-1.2); Basophil (Absolute #) 0.03 x10^3/uL (0.01-0.08); Eosinophil (Absolute #) 0 x10^3/uL (0.04-0.36); Hematocrit 37.5 % (34.1-44.9); Hemoglobin 11.5 g/dL (11.2-15.7); IMMATURE GRAN # 0.14 x10^3u/L (0.001-0.031); IMMATURE GRAN % 1.3 % (0.001-0.429); Lymphocyte (Absolute #) 0.85 x10^3/uL (1.18-3.74); Lymphocytes % 8.1 % (19.3-51.7); Mean Cell Volume 90.4 fL (79.4-94.8); Mean Corpuscular Hemoglobin 27.7 pg (25.6-32.2); Mean Corpuscular Hgb Concent. 30.7 g/dL (32.2-35.5); Mean Platelet Volume 10.8 fL (9.4-12.3); Monocyte (Absolute #) 0.71 x10^3/uL (0.24-0.86); Monocytes % 6.8 % (4.7-12.5); Neutrophil % 83.5 % (34.0-71.1); Platelet Count 230 x10^3/uL (182-369); Red Blood Count 4.15 x10^6/uL (3.93-5.22); White Blood Count 10.4 x10^3/uL (3.98-10.04)
[2024-02-03 06:18] LABS: ALBUMIN 3.8 g/dL (3.5-5.0); ANION GAP 12.6 MEQ/L (5-15); BILIRUBIN,TOTAL 0.3 mg/dL (0.2-1.3); Calcium 9.2 mg/dL (8.4-10.2); Creatinine 1 1.67 mg/dL (0.52-1.04); Potassium 4.1 mmol/L (3.5-5.1); Total Protein 6.7 g/dL (6.3-8.2)
[2024-02-03] MEDS: DELTASONE 20 MG PO SCH (12:09)
--- NOTE | 2024-02-03 13:28 | XRAY ---
Indication: Pneumonia. Comparison: January 31, 2024 Portable chest demonstrates moderate clearing previous right base infiltrate/atelectasis/effusion with minimal residual. New minimal left base infiltrate/atelectasis/effusion. Heart remains enlarged again with arteriosclerotic tortuous aorta and left pacemaker. Bony thorax intact again with osteopenia and degenerative changes.
--- NOTE | 2024-02-04 05:14 | PCM.NOTE ---
Date and Time: 02/04/24 0513 Subjective Assessment: is a 83 year old female with a pmhx of CVA, CHF, COPD (4-6L oxygen baseline), MARIPOSA (BIPAP at night), HTN, AD, IBS, OA, chronic renal failure (h/o nephrectomy), IBS, HLD, AFIB (pacemaker/eliquis), GERD, and DM who presented to ED 01/31/24 with a one day history of increased shortness of breath and fever. Daughter Glenna is at bedside and providing history - reports that patient was in her usual state of health until last night when she noticed her gait was a bit off, she seemed more short of breath, and her lips had a blueish tint to them. When she checked her spo2 it was in the 50's. At that time she turned her oxygen up to 15L and was able to maintain spo2 in the 80's. Patient is not fond of hospitals so she was trying to manage at home. Denies fevers and recent sick contacts. She has had a cough with thick brown sputum. Patient does need to have a mechanical soft diet with honey thickened liquids. Denies fever, cp, abdominal pain, BUSTOS, dizziness, N/V/D. Patient follows with Dr. Young (pulm) and Dr. Corea (cardiology).Upon arrival to ED patient was tachypneic and hypertensive. Oxygen saturations dipping into the 80's. Patient placed on 6L oxymask. CXR showing RML and RLL infiltrates. Head CT negative for acute findings. Lab findings remarkable for elevated creat of 1.55 which is better than her baseline of (1.6-1.7). BNP 650. Trops x 1 WNL. Respiratory panel negative. Patient given Ceftriaxone in ED. Plan for admission for acute respiratory failure secondary to pneumonia/copd exacerbation. Cardiology consulted in ED for a run of wide complex tachycardia concerning for VT.Echocardiogram earlier this year showed normal LV size and function, normal LVEF and only mild aortic stenosis. Recommendations to monitor on tele and repeat echo. 02/01/24: Met with patient and daughter Glenna bedside. Endorses improvement in dyspnea and cough. At baseline oxygen. Lung auscultation with exp wheezing bilaterally. Plan to continue steroids/abx. 02/02/24: Met with patient bedside. Endorses improved dyspnea, cough with increased production - yellow. Remains at baseline oxygen. Lung sounds with fine crackles bilaterally on auscultation, no wheezes. Plan for repeat CXR tomorrow. Continue IV steroid/abx. 02/03/24: No overnight events noted. Continued productive cough and dyspnea. Plan for repeat CXR today. IV to oral steroids. Objective Data Vital Signs: Vital Signs - 24 hr Temp Pulse Resp BP Pulse Ox 02/04/24 04:00 97.2 F 61 20 149/79 99 02/04/24 00:00 97.7 F 62 21 136/65 98 02/03/24 20:00 97.3 F 98 H 19 136/65 98 02/03/24 18:26 98 H 18 98 02/03/24 16:00 97.6 F 68 19 143/63 98 02/03/24 13:49 60 20 98 02/03/24 11:34 96.6 F 68 19 145/74 95 02/03/24 07:03 96.1 F 60 19 137/82 99 02/03/24 07:00 61 25 H 100 Pain Assessment - Last Documented Pain Intensity 0 Intake and Output: Intake & Output 02/01/24 02/02/24 02/03/24 02/04/24 11:59 11:59 11:59 11:59 Intake Total 870 1620 1020 1680 Output Total 1350 3550 950 Balance 870 270 -2530 730 Weight 93.1 kg 92.8 kg 91.5 kg Lab Results: Lab Results-Last 24 Hours 02/03/24 02/03/24 02/03/24 Range/Units 04:54 04:54 06:44 WBC 10.4 H (3.98-10.04) x10^3/uL RBC 4.15 (3.93-5.22) x10^6/uL Hgb 11.5 (11.2-15.7) g/dL Hct 37.5 (34.1-44.9) % MCV 90.4 (79.4-94.8) fL MCH 27.7 (25.6-32.2) pg MCHC 30.7 L (32.2-35.5) g/dL RDW 16.0 H (11.7-14.4) % Plt Count 230 (182-369) x10^3/uL MPV 10.8 (9.4-12.3) fL Gran % 83.5 H (34.0-71.1) % Immature Gran % (Auto) 1.3 H (0.001-0.429) % Nucleat RBC Rel Count 0.0 (0.00-0.2) % Eos # (Auto) 0 L (0.04-0.36) x10^3/uL Immature Gran # (Auto) 0.14 H (0.001-0.031) x10^3u/L Absolute Lymphs (auto) 0.85 L (1.18-3.74) x10^3/uL Absolute Monos (auto) 0.71 (0.24-0.86) x10^3/uL Absolute Nucleated RBC 0.00 (0.00-0.012) x10^3u/L Lymphocytes % 8.1 L (19.3-51.7) % Monocytes % 6.8 (4.7-12.5) % Eosinophils % 0.0 L (0.7-5.8) % Basophils % 0.3 (0.1-1.2) % Absolute Granulocytes 8.70 H (1.56-6.13) x10^3/uL Basophils # 0.03 (0.01-0.08) x10^3/uL Sodium 142 (135-145) mmol/L Potassium 4.1 (3.5-5.1) mmol/L Chloride 107 (98-107) mmol/L Carbon Dioxide 27 (22-30) mmol/L Anion Gap 12.6 (5-15) MEQ/L BUN 44 H (7-17) mg/dL Creatinine 1.67 H (0.52-1.04) mg/dL Estimated GFR 30.0 ML/MIN Glucose 255 H (74-106) mg/dL POC Glucometer 220 H (74 to 106) mg/dL Calcium 9.2 (8.4-10.2) mg/dL Total Bilirubin 0.30 (0.2-1.3) mg/dL AST 22 (14-36) U/L ALT 22 (0-35) U/L Alkaline Phosphatase 93 (38-126) U/L Serum Total Protein 6.7 (6.3-8.2) g/dL Albumin 3.8 (3.5-5.0) g/dL 02/03/24 02/03/24 02/03/24 Range/Units 11:23 13:42 16:01 WBC (3.98-10.04) x10^3/uL RBC (3.93-5.22) x10^6/uL Hgb (11.2-15.7) g/dL Hct (34.1-44.9) % MCV (79.4-94.8) fL MCH (25.6-32.2) pg MCHC (32.2-35.5) g/dL RDW (11.7-14.4) % Plt Count (182-369) x10^3/uL MPV (9.4-12.3) fL Gran % (34.0-71.1) % Immature Gran % (Auto) (0.001-0.429) % Nucleat RBC Rel Count (0.00-0.2) % Eos # (Auto) (0.04-0.36) x10^3/uL Immature Gran # (Auto) (0.001-0.031) x10^3u/L Absolute Lymphs (auto) (1.18-3.74) x10^3/uL Absolute Monos (auto) (0.24-0.86) x10^3/uL Absolute Nucleated RBC (0.00-0.012) x10^3u/L Lymphocytes % (19.3-51.7) % Monocytes % (4.7-12.5) % Eosinophils % (0.7-5.8) % Basophils % (0.1-1.2) % Absolute Granulocytes (1.56-6.13) x10^3/uL Basophils # (0.01-0.08) x10^3/uL Sodium (135-145) mmol/L Potassium (3.5-5.1) mmol/L Chloride (98-107) mmol/L Carbon Dioxide (22-30) mmol/L Anion Gap (5-15) MEQ/L BUN (7-17) mg/dL Creatinine (0.52-1.04) mg/dL Estimated GFR ML/MIN Glucose (74-106) mg/dL POC Glucometer 298 H 308 H 298 H (74 to 106) mg/dL Calcium (8.4-10.2) mg/dL Total Bilirubin (0.2-1.3) mg/dL AST (14-36) U/L ALT (0-35) U/L Alkaline Phosphatase (38-126) U/L Serum Total Protein (6.3-8.2) g/dL Albumin (3.5-5.0) g/dL 02/03/24 Range/Units 21:03 WBC (3.98-10.04) x10^3/uL RBC (3.93-5.22) x10^6/uL Hgb (11.2-15.7) g/dL Hct (34.1-44.9) % MCV (79.4-94.8) fL MCH (25.6-32.2) pg MCHC (32.2-35.5) g/dL RDW (11.7-14.4) % Plt Count (182-369) x10^3/uL MPV (9.4-12.3) fL Gran % (34.0-71.1) % Immature Gran % (Auto) (0.001-0.429) % Nucleat RBC Rel Count (0.00-0.2) % Eos # (Auto) (0.04-0.36) x10^3/uL Immature Gran # (Auto) (0.001-0.031) x10^3u/L Absolute Lymphs (auto) (1.18-3.74) x10^3/uL Absolute Monos (auto) (0.24-0.86) x10^3/uL Absolute Nucleated RBC (0.00-0.012) x10^3u/L Lymphocytes % (19.3-51.7) % Monocytes % (4.7-12.5) % Eosinophils % (0.7-5.8) % Basophils % (0.1-1.2) % Absolute Granulocytes (1.56-6.13) x10^3/uL Basophils # (0.01-0.08) x10^3/uL Sodium (135-145) mmol/L Potassium (3.5-5.1) mmol/L Chloride (98-107) mmol/L Carbon Dioxide (22-30) mmol/L Anion Gap (5-15) MEQ/L BUN (7-17) mg/dL Creatinine (0.52-1.04) mg/dL Estimated GFR ML/MIN Glucose (74-106) mg/dL POC Glucometer 258 H (74 to 106) mg/dL Calcium (8.4-10.2) mg/dL Total Bilirubin (0.2-1.3) mg/dL AST (14-36) U/L ALT (0-35) U/L Alkaline Phosphatase (38-126) U/L Serum Total Protein (6.3-8.2) g/dL Albumin (3.5-5.0) g/dL Radiology Exams: Radiology Procedures Category Date Time Status CHEST 1 VIEW (PORTABLE) Routine Exams 02/03/24 13:02 Completed Assessment/Plan (1) Acute respiratory failure with hypoxia Current Visit: Yes Status: Acute Assessment & Plan: -2/2 to pneumonia/copd exacerbation -Supplemental oxygen with spo2 goal 88-92% -baseline 4-6L -current 6L oxymizer -RT eval -DuoNebs/steroids -Ceftriaxone/azithromycin 02/01/24: -At baseline oxygen of 4L -Continue IV steroids/abx as above 02/02/24: -CXR 02/03/24 -Continue IV steroid/abx, if CXR showing improvement will change to oral steroid/abx 02/02: -CXR pending -Solumedrol changed to prednisone -Continue txt for pneumonia Code(s): J96.01 - ACUTE RESPIRATORY FAILURE WITH HYPOXIA (2) Pneumonia Current Visit: Yes Status: Acute Assessment & Plan: -see plan for ARF -Ceftriaxone started in ED, will continue add azithromycin 02/02: dc azithromycin Code(s): J18.9 - PNEUMONIA, UNSPECIFIED ORGANISM (3) COPD with exacerbation Current Visit: Yes Status: Acute Assessment & Plan: -see plan for ARF Code(s): J44.1 - CHRONIC OBSTRUCTIVE PULMONARY DISEASE W (ACUTE) EXACERBATION (4) HTN (hypertension) Current Visit: Yes Status: Acute Assessment & Plan: -continue home medications Code(s): I10 - ESSENTIAL (PRIMARY) HYPERTENSION (5) HLD (hyperlipidemia) Current Visit: Yes Status: Acute Assessment & Plan: -continue statin Code(s): E78.5 - HYPERLIPIDEMIA, UNSPECIFIED (6) GERD (gastroesophageal reflux disease) Current Visit: Yes Status: Acute Assessment & Plan: -continue protonix Code(s): K21.9 - GASTRO-ESOPHAGEAL REFLUX DISEASE WITHOUT ESOPHAGITIS (7) Chronic renal disease Current Visit: Yes Status: Acute Assessment & Plan: -at baseline -monitor renal/lytes daily -avoid nephrotoxic medications Code(s): N18.9 - CHRONIC KIDNEY DISEASE, UNSPECIFIED (8) CHF (congestive heart failure) Current Visit: No Status: Acute Qualifiers: Heart failure type: combined systolic and diastolic Assessment & Plan: -Does not appear to be in exacerbation, no edema noted on exam -BNP 650 -Echo 08/30/23 EF 50% IMPRESSION: 1) MILD CONCENTRIC LEFT VENTRICULAR HYPERTROPHY. 2) NORMAL LEFT VENTRICULAR SYSTOLIC FUNCTION. 3) CALCIFIC AORTIC SCLEROSIS WITH MOST LIKELY MILD AORTIC STENOSIS. 4) DIASTOLIC DYSFUNCTION. 5) MILD MITRAL REGURGITATION. 6) MILD AORTIC INSUFFICIENCY. 7) MILD TRICUSPID REGURGITATION. -Follows with Dr. 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 Current Visit: No Status: Chronic Assessment & Plan: -continue home meds Aricept and memantine Code(s): G30.9 - ALZHEIMER'S DISEASE, UNSPECIFIED; F02.80 - DEM IN OTH DIS C LASSD ELSWHR,UNSP SEV,W/O BEH/PSYCH/MOOD/ANX (10) Diabetes mellitus Current Visit: Yes Status: Acute Assessment & Plan: -Continue lispro/Glargine - Daughter states she uses SSI at home -mechanical soft ADA diet/ honey thickened liquids Code(s): E11.9 - TYPE 2 DIABETES MELLITUS WITHOUT COMPLICATIONS (11) Afib Current Visit: Yes Status: Acute Assessment & Plan: -Continue Eliquis -Of note patient with pacemaker/defib -tele Code(s): I48.91 - UNSPECIFIED ATRIAL FIBRILLATION (12) MARIPOSA (obstructive sleep apnea) Current Visit: Yes Status: Acute Assessment & Plan: -continue BIPAP VTE: Eliquis PPI: protonix Dispo: 1-2 days Code(s): J96.01 - ACUTE RESPIRATORY FAILURE WITH HYPOXIA (2) Pneumonia Current Visit: Yes Status: Acute Code(s): J18.9 - PNEUMONIA, UNSPECIFIED ORGANISM (3) COPD with exacerbation Current Visit: Yes Status: Acute Code(s): J44.1 - CHRONIC OBSTRUCTIVE PULMONARY DISEASE W (ACUTE) EXACERBATION (4) HTN (hypertension) Current Visit: Yes Status: Acute Code(s): I10 - ESSENTIAL (PRIMARY) HYPERTENSION (5) HLD (hyperlipidemia) Current Visit: Yes Status: Acute Code(s): E78.5 - HYPERLIPIDEMIA, UNSPECIFIED (6) GERD (gastroesophageal reflux disease) Current Visit: Yes Status: Acute Code(s): K21.9 - GASTRO-ESOPHAGEAL REFLUX DISEASE WITHOUT ESOPHAGITIS (7) Chronic renal disease Current Visit: Yes Status: Acute Code(s): N18.9 - CHRONIC KIDNEY DISEASE, UNSPECIFIED (8) CHF (congestive heart failure) Current Visit: No Status: Acute Qualifiers: Heart failure type: combined systolic and diastolic Code(s): I50.9 - HEART FAILURE, UNSPECIFIED (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
--- NOTE | 2024-02-04 05:16 | PCM.DS ---
Discharge Summary Date of Admission: 01/31/24 13:22 Date of Discharge: 02/04/24 Admitting Physician: SHOLA JOHNSON MD Primary Care Provider: JANNETTE YADAV LORI Allergies Allergies carvedilol Allergy (Verified 01/31/24 09:43) Hospital Summary - Hospital Course Hospital Course: is a 89 year old female with pmhx of HTN, peripheral neuropathy, copd, anemia, chf, hypothyroidism, and afib(no anticoagulation since July 2023- due to cost/coverage) who presented to ED 02/02/24 under the advisement of her rib bender Dr. Corea who examined her OP and performed a twelve-lead EKG it which was abnormal. Patient reports that she has been experiencing "heart- racing" sensations since 01/30/24. She also has complaints of increased shortness of breath with exertion, fatigue, and dark-tarry stools (for the past 2-3 weeks). She denies chest pain, fever,cough, abdominal pain, BUSTOS, dizziness, N/V/D. Patient reports that she has chronic anemia and takes two iron pills daily. Upon arrival patient tachypneic, tachycardic, and hypertensive. EKG sinus tachycardia with LBBB, no acute ischemic changes. CXR demonstrates large hiatal hernia with intrathoracic stomach left lung base. Increasing left lower lobe infiltrate/atelectasis. Stable focal eventration right hemidiaphragm. Remaining heart and lungs unremarkable. Lab findings remarkable for leukocytosis with WBC at 17.3., hgb at 10.8, ELYSE with creat at 1.42 (base around 0.80), Mg elevated at 2.4[place] [address]. Ceftriaxone, Protonix, and fluid bolus given in ED. CT showing Impression: Very large hiatal hernia with food/fluid distended partial intrathoracic. Stomach occupying left lung base with subsequent compressive atelectasis. Chronic findings including pulmonary emphysema, arteriosclerotic disease, aortic valve calcifications, chronic bony findings, and old granulomatous disease. No infiltrate. Cardiology evaluated patient with the following recommendations: Switch Coreg to metoprolol for better HR control Repeat echo - may add ACI/MRA pending results. Continue amiodarone. Defer OAC to primary rib bender Discharge Note New Diagnosis: New Medications: Follow Up: Results pending: Outpatient testing to order: Latest Assessment & Plan -secondary most likely to pneumonia -CXR demonstrates large hiatal hernia with intrathoracic stomach left lung base. Increasing left lower lobe infiltrate/atelectasis. Stable focal eventration right hemidiaphragm. Remaining heart and lungs unremarkable -Meets sepsis criteria with WBC 17.3 (pt has been on OP steroid therapy), tachycardia, pneumonia -Fluid bolus given in ED - LA WNL -Rocephin given in ED, will continue with Azithromycin 02/02: -No longer meeting criteria -CT showing large hiatal hernia - no infiltrates noted -Patient has been on OP steroids which may be the cause of her leukocytosis - WBC improved -Procal and lactic wnl (2) Pneumonia Current Visit: Yes Status: Acute Assessment & Plan: -supplemental oxygen with goal spo2 >92% -Ceftriaxone/azithromycin -ABG if significant hypoxia/lethargy/confusion -Blood cultures -sputum culture 02/02 -See above sepsis Code(s): J18.9 - PNEUMONIA, UNSPECIFIED ORGANISM (3) Hypothyroid Current Visit: Yes Status: Acute Assessment & Plan: -continue home meds -check TSH 02/02: -TSH wnl- continue current dosing Code(s): E03.9 - HYPOTHYROIDISM, UNSPECIFIED (4) HTN (hypertension) Current Visit: Yes Status: Acute Assessment & Plan: -stable -continue home meds Code(s): I10 - ESSENTIAL (PRIMARY) HYPERTENSION (5) GERD (gastroesophageal reflux disease) Current Visit: Yes Status: Acute Assessment & Plan: -protonix Code(s): K21.9 - GASTRO-ESOPHAGEAL REFLUX DISEASE WITHOUT ESOPHAGITIS (6) CHF (congestive heart failure) Current Visit: Yes Status: Acute Assessment & Plan: -no recent echo -BNP 55405 -Lasix given in ED -daily weight/I&O/elevate HOB 02/02: -Cardiology consulted - appreciate recs, echo pending Code(s): I50.9 - HEART FAILURE, UNSPECIFIED (7) Complaint of melena Current Visit: Yes Status: Acute Assessment & Plan: -occult stools -trend hemoglobin - appears to be at baseline at 10.8 -Protonix -Avoid NSAID/ASA -iron labs -consider surgery consult pending results -tele 02/02: -stools pending -hgb stable -iron sat at 48% Code(s): K92.1 - MELENA (8) ELYSE (acute kidney injury) Current Visit: Yes Status: Acute Assessment & Plan: -Baseline WNL - elevated at 1.42 -Avoid JAY/ARB/NSAIDS -patient received fluid bolus in ED, will hold additional IVF in the setting of CHF -Monitor renal/lytes daily 02/02: -improving Code(s): N17.9 - ACUTE KIDNEY FAILURE, UNSPECIFIED (9) Tachycardia Current Visit: Yes Status: Acute Assessment & Plan: -EKG with sinus tach LBBB, no ST elevation - acute changes -May be secondary to pneumonia/anemia -check TSH -Check iron studies 02/02: -AFIB on repeat EKG - HR is now controlled, overnight episode of HR In the 120's - cardiology consulted, appreciate recs Code(s): R00.0 - TACHYCARDIA, UNSPECIFIED (10) Afib Current Visit: Yes Status: Acute Assessment & Plan: -Patient reports she has been unable to obtain Eliquis as OP - will contact Dr. Corea unsure of the reasoning -continue home meds Code(s): I48.91 - UNSPECIFIED ATRIAL FIBRILLATION (11) Colitis Current Visit: Yes Status: Acute Assessment & Plan: -noted, per pt report has been on OP steroids therapy I spent 35 minutes [id number] with the patient on the day of discharge performing discharge exam, discussing hospital stay and discharge instructions with patient and caregivers, preparation of discharge records, prescriptions & referral forms and addressing any questions/concerns the patient had as documented above. - Vitals & Intake/Output Vital Signs: Vital Signs Temperature 97.2 F 02/04/24 04:00 Pulse Rate 61 02/04/24 04:00 Respiratory Rate 20 02/04/24 04:00 Blood Pressure 149/79 02/04/24 04:00 O2 Sat by Pulse Oximetry 99 02/04/24 04:00 Intake & Output: Intake & Output 02/01/24 02/02/24 02/03/24 02/04/24 11:59 11:59 11:59 11:59 Intake Total 870 1620 1020 1680 Output Total 1350 3550 950 Balance 870 270 -2530 730 Weight 93.1 kg 92.8 kg 91.5 kg - Lab Result Diagrams: 02/03/24 04:54 02/03/24 04:54 Lab Results-Last 24 Hrs: Lab Results-Last 24 Hours 02/03/24 02/03/24 02/03/24 Range/Units 04:54 04:54 06:44 WBC 10.4 H (3.98-10.04) x10^3/uL RBC 4.15 (3.93-5.22) x10^6/uL Hgb 11.5 (11.2-15.7) g/dL Hct 37.5 (34.1-44.9) % MCV 90.4 (79.4-94.8) fL MCH 27.7 (25.6-32.2) pg MCHC 30.7 L (32.2-35.5) g/dL RDW 16.0 H (11.7-14.4) % Plt Count 230 (182-369) x10^3/uL MPV 10.8 (9.4-12.3) fL Gran % 83.5 H (34.0-71.1) % Immature Gran % (Auto) 1.3 H (0.001-0.429) % Nucleat RBC Rel Count 0.0 (0.00-0.2) % Eos # (Auto) 0 L (0.04-0.36) x10^3/uL Immature Gran # (Auto) 0.14 H (0.001-0.031) x10^3u/L Absolute Lymphs (auto) 0.85 L (1.18-3.74) x10^3/uL Absolute Monos (auto) 0.71 (0.24-0.86) x10^3/uL Absolute Nucleated RBC 0.00 (0.00-0.012) x10^3u/L Lymphocytes % 8.1 L (19.3-51.7) % Monocytes % 6.8 (4.7-12.5) % Eosinophils % 0.0 L (0.7-5.8) % Basophils % 0.3 (0.1-1.2) % Absolute Granulocytes 8.70 H (1.56-6.13) x10^3/uL Basophils # 0.03 (0.01-0.08) x10^3/uL Sodium 142 (135-145) mmol/L Potassium 4.1 (3.5-5.1) mmol/L Chloride 107 (98-107) mmol/L Carbon Dioxide 27 (22-30) mmol/L Anion Gap 12.6 (5-15) MEQ/L BUN 44 H (7-17) mg/dL Creatinine 1.67 H (0.52-1.04) mg/dL Estimated GFR 30.0 ML/MIN Glucose 255 H (74-106) mg/dL POC Glucometer 220 H (74 to 106) mg/dL Calcium 9.2 (8.4-10.2) mg/dL Total Bilirubin 0.30 (0.2-1.3) mg/dL AST 22 (14-36) U/L ALT 22 (0-35) U/L Alkaline Phosphatase 93 (38-126) U/L Serum Total Protein 6.7 (6.3-8.2) g/dL Albumin 3.8 (3.5-5.0) g/dL 02/03/24 02/03/24 02/03/24 Range/Units 11:23 13:42 16:01 WBC (3.98-10.04) x10^3/uL RBC (3.93-5.22) x10^6/uL Hgb (11.2-15.7) g/dL Hct (34.1-44.9) % MCV (79.4-94.8) fL MCH (25.6-32.2) pg MCHC (32.2-35.5) g/dL RDW (11.7-14.4) % Plt Count (182-369) x10^3/uL MPV (9.4-12.3) fL Gran % (34.0-71.1) % Immature Gran % (Auto) (0.001-0.429) % Nucleat RBC Rel Count (0.00-0.2) % Eos # (Auto) (0.04-0.36) x10^3/uL Immature Gran # (Auto) (0.001-0.031) x10^3u/L Absolute Lymphs (auto) (1.18-3.74) x10^3/uL Absolute Monos (auto) (0.24-0.86) x10^3/uL Absolute Nucleated RBC (0.00-0.012) x10^3u/L Lymphocytes % (19.3-51.7) % Monocytes % (4.7-12.5) % Eosinophils % (0.7-5.8) % Basophils % (0.1-1.2) % Absolute Granulocytes (1.56-6.13) x10^3/uL Basophils # (0.01-0.08) x10^3/uL Sodium (135-145) mmol/L Potassium (3.5-5.1) mmol/L Chloride (98-107) mmol/L Carbon Dioxide (22-30) mmol/L Anion Gap (5-15) MEQ/L BUN (7-17) mg/dL Creatinine (0.52-1.04) mg/dL Estimated GFR ML/MIN Glucose (74-106) mg/dL POC Glucometer 298 H 308 H 298 H (74 to 106) mg/dL Calcium (8.4-10.2) mg/dL Total Bilirubin (0.2-1.3) mg/dL AST (14-36) U/L ALT (0-35) U/L Alkaline Phosphatase (38-126) U/L Serum Total Protein (6.3-8.2) g/dL Albumin (3.5-5.0) g/dL // Range/Units 21:03 WBC (3.98-10.04) x10^3/uL RBC (3.93-5.22) x10^6/uL Hgb (11.2-15.7) g/dL Hct (34.1-44.9) % MCV (79.4-94.8) fL MCH (25.6-32.2) pg MCHC (32.2-35.5) g/dL RDW (11.7-14.4) % Plt Count (182-369) x10^3/uL MPV (9.4-12.3) fL Gran % (34.0-71.1) % Immature Gran % (Auto) (0.001-0.429) % Nucleat RBC Rel Count (0.00-0.2) % Eos # (Auto) (0.04-0.36) x10^3/uL Immature Gran # (Auto) (0.001-0.031) x10^3u/L Absolute Lymphs (auto) (1.18-3.74) x10^3/uL Absolute Monos (auto) (0.24-0.86) x10^3/uL Absolute Nucleated RBC (0.00-0.012) x10^3u/L Lymphocytes % (19.3-51.7) % Monocytes % (4.7-12.5) % Eosinophils % (0.7-5.8) % Basophils % (0.1-1.2) % Absolute Granulocytes (1.56-6.13) x10^3/uL Basophils # (0.01-0.08) x10^3/uL Sodium (135-145) mmol/L Potassium (3.5-5.1) mmol/L Chloride (98-107) mmol/L Carbon Dioxide (22-30) mmol/L Anion Gap (5-15) MEQ/L BUN (7-17) mg/dL Creatinine (0.52-1.04) mg/dL Estimated GFR ML/MIN Glucose (74-106) mg/dL POC Glucometer 258 H (74 to 106) mg/dL Calcium (8.4-10.2) mg/dL Total Bilirubin (0.2-1.3) mg/dL AST (14-36) U/L ALT (0-35) U/L Alkaline Phosphatase (38-126) U/L Serum Total Protein (6.3-8.2) g/dL Albumin (3.5-5.0) g/dL Micro Results-Entire Visit: Microbiology 01/31/24 10:40 Blood Culture - Preliminary Blood 01/31/24 10:30 Blood Culture - Preliminary Blood 01/31/24 11:00 Urine Culture - Final Catherized NO GROWTH Accuchecks Date 02/03/24 Date 02/03/24 Date 02/03/24 Date 02/03/24 Time 21:00 Time 13:44 Time 11:33 Time 07:02 - Radiology Exams Ordered Rad Exams-Entire Visit: Radiology Procedures Category Date Time Status CHEST 1 VIEW (PORTABLE) Routine Exams 02/03/24 13:02 Completed - Procedures and Test Procedures and Tests throughout Hospitalization: Therapy Orders & Screens 01/31/24 13:37 Oxygen NASAL CANNULA 5 lpm Comment: 01/31/24 13:51 BiPap/CPAP ROUTINE Comment: 01/31/24 13:58 EKG REPEAT IN AM Comment: Oxygen Nasal Cannula 2 lpm Comment: Respiratory Therapy Consult ONCE Comment: Reason For Exam: 01/31/24 15:21 RT Screen per Nursing Assess ONCE Comment: Protocol Order Physician Instructions: Greater than 3 points order RT Admission Screen Reason For Exam: Triggered on Admission Diagnosis: Hypoxia/pneumonia Diagnosis: Hypoxia/pneumonia Home O2: Yes CHF: Yes Home CPAP/BIPAP: Yes Home Nebs/MDI: Yes Total Points: 18 ST Screen per Nursing Assess ONCE Comment: Protocol Order Physician Instructions: Greater than [address] Admission Screening Reason For Exam: Triggered on Admission Diagnosis: Hypoxia/pneumonia CVA/Dyshpagia/Aphasia: No Cognitive Deficits: No Dehydration/Nutrition Deficit: No Reflux: Yes Oral-Motor Difficulties: Yes Pneumonia: No Retirement Resident: No Total Points: 6 01/31/24 15:55 Respiratory Therapy Consult ONCE Comment: Reason For Exam: Diagnosis: Hypoxia/pneumonia 02/01/24 07:00 Respiratory MDI DAILY Comment: Respiratory Therapy Assessment DAILY Comment: Final Diagnosis/Problem List - Final Discharge Diagnosis/Problem (1) Acute respiratory failure with hypoxia Current Visit: Yes Status: Acute Code(s): J96.01 - ACUTE RESPIRATORY FAILURE WITH HYPOXIA (2) Pneumonia Current Visit: Yes Status: Acute Code(s): J18.9 - PNEUMONIA, UNSPECIFIED ORGANISM (3) COPD with exacerbation Current Visit: Yes Status: Acute Code(s): J44.1 - CHRONIC OBSTRUCTIVE PULMONARY DISEASE W (ACUTE) EXACERBATION (4) HTN (hypertension) Current Visit: Yes Status: Acute Code(s): I10 - ESSENTIAL (PRIMARY) HYPERTENSION (5) HLD (hyperlipidemia) Current Visit: Yes Status: Acute Code(s): E78.5 - HYPERLIPIDEMIA, UNSPECIFIED (6) GERD (gastroesophageal reflux disease) Current Visit: Yes Status: Acute Code(s): K21.9 - GASTRO-ESOPHAGEAL REFLUX DISEASE WITHOUT ESOPHAGITIS (7) Chronic renal disease Current Visit: Yes Status: Acute Code(s): N18.9 - CHRONIC KIDNEY DISEASE, UNSPECIFIED (8) CHF (congestive heart failure) Current Visit: No Status: Acute Code(s): I50.9 - HEART FAILURE, UNSPECIFIED (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 - Discharge Disposition: Home, Self-Care Condition: Fair Prescriptions: No Action Apixaban [Eliquis 5 mg Tablet] 2.5 mg PO BID Bumetanide 1 mg [Bumex 1 mg] 1 mg PO DAILY Memantine HCl 5 mg PO QHS PANTOPRAZOLE 40 mg Tablet [Protonix 40MG Tablet] 40 mg PO DAILY Losartan Potassium [Cozaar] 100 mg PO DAILY Folic Acid 1 mg [Folate 1 mg] 1 mg PO DAILY Donepezil HCl [Aricept] 5 mg PO DAILY Amlodipine Besylate 5 mg [Norvasc 5 mg] 5 mg PO DAILY Atorvastatin Calcium 40 mg PO HS OLANZapine [Olanzapine] 10 mg PO HS Insulin Glargine,Hum.rec.anlog [Lantus] 20 unit SQ BID Escitalopram Oxalate [Lexapro] 10 mg PO DAILY Aspirin 81 gm Chew [Baby Aspirin 81 mg Chew] 81 mg PO DAILY Insulin Lispro [Humalog] 10 unit SQ TID Fluticasone/Umeclidin/Vilanter [Trelegy Ellipta 100-62.5-25] 1 puff IH DAILY Potassium Chloride 7.5 ml PO BID Albuterol 2.5 mg/3 ml Neb [Proventil 2.5 mg/3 ml Neb] 1 vial NEB TID Follow up with: JANNETTE YADAV MD [Primary Care Provider] -
[2024-02-04 05:24] LABS: BASOPHIL % 0.3 % (0.1-1.2); Basophil (Absolute #) 0.03 x10^3/uL (0.01-0.08); Eosinophil (Absolute #) 0 x10^3/uL (0.04-0.36); Hematocrit 37.7 % (34.1-44.9); Hemoglobin 11.4 g/dL (11.2-15.7); IMMATURE GRAN # 0.22 x10^3u/L (0.001-0.031); IMMATURE GRAN % 2.3 % (0.001-0.429); Lymphocytes % 7.2 % (19.3-51.7); Mean Cell Volume 91.1 fL (79.4-94.8); Mean Corpuscular Hemoglobin 27.5 pg (25.6-32.2); Mean Corpuscular Hgb Concent. 30.2 g/dL (32.2-35.5); Mean Platelet Volume 10.6 fL (9.4-12.3); Monocyte (Absolute #) 0.46 x10^3/uL (0.24-0.86); Monocytes % 4.7 % (4.7-12.5); Neutrophil % 85.5 % (34.0-71.1); Platelet Count 210 x10^3/uL (182-369); Red Blood Count 4.14 x10^6/uL (3.93-5.22); Red Cell Distribution Width 15.7 % (11.7-14.4); White Blood Count 9.7 x10^3/uL (3.98-10.04)
[2024-02-04 05:37] LABS: ALBUMIN 3.7 g/dL (3.5-5.0); BILIRUBIN,TOTAL 0.4 mg/dL (0.2-1.3); Calcium 9.3 mg/dL (8.4-10.2); Creatinine 1 1.57 mg/dL (0.52-1.04); EST GLOMERULAR FILTRATION RATE 32.3 ML/MIN; Potassium 4.1 mmol/L (3.5-5.1); Total Protein 6.6 g/dL (6.3-8.2)
[2024-02-04 07:18] VITALS: TEMP 97.3
[2024-02-04] MEDS: HUMALOG SQ PRN (09:47)
[2024-02-04] MEDS: LOPRESSOR INJECTION IV ONE (10:33)
[2024-02-04 11:25] VITALS: BP 127/59; PULSE 58; RESP 23; O2SAT 99
--- NOTE | 2024-02-04 11:35 | PCM.DS ---
Discharge Summary Date of Admission: 01/31/24 13:22 Date of Discharge: 02/04/24 Admitting Physician: SHOLA JOHNSON MD Primary Care Provider: JANNETTE YADAV LORI Allergies Allergies carvedilol Allergy (Verified 01/31/24 09:43) Hospital Summary - Hospital Course Hospital Course: is a 83 year old female with a pmhx of CVA, CHF, COPD (4-6L oxygen baseline), MARIPOSA (BIPAP at night), HTN, AD, IBS, OA, chronic renal failure (h/o nephrectomy), IBS, HLD, AFIB (pacemaker/eliquis), GERD, and DM who presented to ED 01/31/24 with a one day history of increased shortness of breath and fever. Daughter Glenna is at bedside and providing history - reports that patient was in her usual state of health until last night when she noticed her gait was a bit off, she seemed more short of breath, and her lips had a blueish tint to them. When she checked her spo2 it was in the 50's. At that time she turned her oxygen up to 15L and was able to maintain spo2 in the 80's. Patient is not fond of hospitals so she was trying to manage at home. Denies fevers and recent sick contacts. She has had a cough with thick brown sputum. Patient does need to have a mechanical soft diet with honey thickened liquids. Denies fever, cp, abdominal pain, BUSTOS, dizziness, N/V/D. Patient follows with Dr. Young (pulm) and Dr. Kelly (cardiology).Upon arrival to ED patient was tachypneic and hypertensive. Oxygen saturations dipping into the 80's. Patient placed on 6L oxymask. CXR showing RML and RLL infiltrates. Head CT negative for acute findings. Lab findings remarkable for elevated creat of 1.55 which is better than her baseline of (1.6-1.7). BNP 650. Trops x 1 WNL. Respiratory panel negative. Patient given Ceftriaxone in ED. Plan for admission for acute respiratory failure secondary to pneumonia/copd exacerbation. Cardiology consulted in ED for a run of wide complex tachycardia concerning for VT.Echocardiogram earlier this year showed normal LV size and function, normal LVEF and only mild aortic stenosis. Recommendations to monitor on tele and repeat echo. Echo showing EF 55%. No further arrhythmias on tele during hospitalization. IP treatment with ceftriaxone/solumedrol/azithromycin. Dyspnea and cough improved. At baseline oxygen. Will dismiss on cefpodoxime and prednisone. Patient stable for discharge. Advise follow up next week with PCP. Follow up with cardiology/pulmonology Discharge Note New Diagnosis: Pneumonia New Medications: cefpodoxime Follow Up: pcp/cards/pulmonology Latest Assessment & Plan (1) Acute respiratory failure with hypoxia Current Visit: Yes Status: Acute Assessment & Plan: -2/2 to pneumonia/copd exacerbation -Supplemental oxygen with spo2 goal 88-92% -baseline 4-6L -current 6L oxymizer -RT eval -DuoNebs/steroids -Ceftriaxone/azithromycin 02/01/24: -At baseline oxygen of 4L -Continue IV steroids/abx as above 02/02/24: -CXR 02/03/24 -Continue IV steroid/abx, if CXR showing improvement will change to oral steroid/abx 02/02: -CXR pending -Solumedrol changed to prednisone -Continue txt for pneumonia Code(s): J96.01 - ACUTE RESPIRATORY FAILURE WITH HYPOXIA (2) Pneumonia Current Visit: Yes Status: Acute Assessment & Plan: -see plan for ARF -Ceftriaxone started in ED, will continue add azithromycin 02/02: dc azithromycin Code(s): J18.9 - PNEUMONIA, UNSPECIFIED ORGANISM (3) COPD with exacerbation Current Visit: Yes Status: Acute Assessment & Plan: -see plan for ARF Code(s): J44.1 - CHRONIC OBSTRUCTIVE PULMONARY DISEASE W (ACUTE) EXACERBATION (4) HTN (hypertension) Current Visit: Yes Status: Acute Assessment & Plan: -continue home medications Code(s): I10 - ESSENTIAL (PRIMARY) HYPERTENSION (5) HLD (hyperlipidemia) Current Visit: Yes Status: Acute Assessment & Plan: -continue statin Code(s): E78.5 - HYPERLIPIDEMIA, UNSPECIFIED (6) GERD (gastroesophageal reflux disease) Current Visit: Yes Status: Acute Assessment & Plan: -continue protonix Code(s): K21.9 - GASTRO-ESOPHAGEAL REFLUX DISEASE WITHOUT ESOPHAGITIS (7) Chronic renal disease Current Visit: Yes Status: Acute Assessment & Plan: -at baseline -monitor renal/lytes daily -avoid nephrotoxic medications Code(s): N18.9 - CHRONIC KIDNEY DISEASE, UNSPECIFIED (8) CHF (congestive heart failure) Current Visit: No Status: Acute Qualifiers: Heart failure type: combined systolic and diastolic Assessment & Plan: -Does not appear to be in exacerbation, no edema noted on exam -BNP 650 -Echo 08/30/23 EF 50% IMPRESSION: 1) MILD CONCENTRIC LEFT VENTRICULAR HYPERTROPHY. 2) NORMAL LEFT VENTRICULAR SYSTOLIC FUNCTION. 3) CALCIFIC AORTIC SCLEROSIS WITH MOST LIKELY MILD AORTIC STENOSIS. 4) DIASTOLIC DYSFUNCTION. 5) MILD MITRAL REGURGITATION. 6) MILD AORTIC INSUFFICIENCY. 7) MILD TRICUSPID REGURGITATION. -Follows with Dr. 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 Current Visit: No Status: Chronic Assessment & Plan: -continue home meds Aricept and memantine Code(s): G30.9 - ALZHEIMER'S DISEASE, UNSPECIFIED; F02.80 - DEM IN OTH DIS CL ASSD ELSWHR,UNSP SEV,W/O BEH/PSYCH/MOOD/ANX (10) Diabetes mellitus Current Visit: Yes Status: Acute Assessment & Plan: -Continue lispro/Glargine - Daughter states she uses SSI at home -mechanical soft ADA diet/ honey thickened liquids Code(s): E11.9 - TYPE 2 DIABETES MELLITUS WITHOUT COMPLICATIONS (11) Afib Current Visit: Yes Status: Acute Assessment & Plan: -Continue Eliquis -Of note patient with pacemaker/defib -tele Code(s): I48.91 - UNSPECIFIED ATRIAL FIBRILLATION (12) MARIPOSA (obstructive sleep apnea) Current Visit: Yes Status: Acute Assessment & Plan: -continue BIPAP I spent 35 minutes [id number] with the patient on the day of discharge per forming discharge exam, discussing hospital stay and discharge instructions with patient and caregivers, preparation of discharge records, prescriptions & referral forms and addressing any questions/concerns the patient had as documented above. - Vitals & Intake/Output Vital Signs: Vital Signs Temperature 97.3 F 02/04/24 11:24 Pulse Rate 58 L 02/04/24 11:24 Respiratory Rate 23 02/04/24 11:24 Blood Pressure 127/59 02/04/24 11:24 O2 Sat by Pulse Oximetry 99 02/04/24 11:24 Intake & Output: Intake & Output 02/01/24 02/02/24 02/03/24 02/04/24 11:59 11:59 11:59 11:59 Intake Total 870 1620 1020 2020 Output Total 1350 3060 950 Balance 870 270 -7100 1070 Weight 93.1 kg 92.8 kg 91.5 kg 93.3 kg - Lab Result Diagrams: 02/04/24 04:41 02/04/24 04:41 Lab Results-Last 24 Hrs: Lab Results-Last 24 Hours 02/03/24 02/03/24 02/03/24 Range/Units 13:42 16:01 21:03 WBC (3.98-10.04) x10^3/uL RBC (3.93-5.22) x10^6/uL Hgb (11.2-15.7) g/dL Hct (34.1-44.9) % MCV (79.4-94.8) fL MCH (25.6-32.2) pg MCHC (32.2-35.5) g/dL RDW (11.7-14.4) % Plt Count (182-369) x10^3/uL MPV (9.4-12.3) fL Gran % (34.0-71.1) % Immature Gran % (Auto) (0.001-0.429) % Nucleat RBC Rel Count (0.00-0.2) % Eos # (Auto) (0.04-0.36) x10^3/uL Immature Gran # (Auto) (0.001-0.031) x10^3u/L Absolute Lymphs (auto) (1.18-3.74) x10^3/uL Absolute Monos (auto) (0.24-0.86) x10^3/uL Absolute Nucleated RBC (0.00-0.012) x10^3u/L Lymphocytes % (19.3-51.7) % Monocytes % (4.7-12.5) % Eosinophils % (0.7-5.8) % Basophils % (0.1-1.2) % Absolute Granulocytes (1.56-6.13) x10^3/uL Basophils # (0.01-0.08) x10^3/uL Sodium (135-145) mmol/L Potassium (3.5-5.1) mmol/L Chloride (98-107) mmol/L Carbon Dioxide (22-30) mmol/L Anion Gap (5-15) MEQ/L BUN (7-17) mg/dL Creatinine (0.52-1.04) mg/dL Estimated GFR ML/MIN Glucose (74-106) mg/dL POC Glucometer 308 H 298 H 258 H (74 to 106) mg/dL Calcium (8.4-10.2) mg/dL Total Bilirubin (0.2-1.3) mg/dL AST (14-36) U/L ALT (0-35) U/L Alkaline Phosphatase (38-126) U/L Serum Total Protein (6.3-8.2) g/dL Albumin (3.5-5.0) g/dL 02/04/24 02/04/24 02/04/24 Range/Units 04:41 04:41 06:58 WBC 9.7 (3.98-10.04) x10^3/uL RBC 4.14 (3.93-5.22) x10^6/uL Hgb 11.4 (11.2-15.7) g/dL Hct 37.7 (34.1-44.9) % MCV 91.1 (79.4-94.8) fL MCH 27.5 (25.6-32.2) pg MCHC 30.2 L (32.2-35.5) g/dL RDW 15.7 H (11.7-14.4) % Plt Count 210 (182-369) x10^3/uL MPV 10.6 (9.4-12.3) fL Gran % 85.5 H (34.0-71.1) % Immature Gran % (Auto) 2.3 H (0.001-0.429) % Nucleat RBC Rel Count 0.0 (0.00-0.2) % Eos # (Auto) 0 L (0.04-0.36) x10^3/uL Immature Gran # (Auto) 0.22 H (0.001-0.031) x10^3u/L Absolute Lymphs (auto) 0.70 L (1.18-3.74) x10^3/uL Absolute Monos (auto) 0.46 (0.24-0.86) x10^3/uL Absolute Nucleated RBC 0.00 (0.00-0.012) x10^3u/L Lymphocytes % 7.2 L (19.3-51.7) % Monocytes % 4.7 (4.7-12.5) % Eosinophils % 0.0 L (0.7-5.8) % Basophils % 0.3 (0.1-1.2) % Absolute Granulocytes 8.30 H (1.56-6.13) x10^3/uL Basophils # 0.03 (0.01-0.08) x10^3/uL Sodium 138 (135-145) mmol/L Potassium 4.1 (3.5-5.1) mmol/L Chloride 105 (98-107) mmol/L Carbon Dioxide 27 (22-30) mmol/L Anion Gap 9.0 (5-15) MEQ/L BUN 43 H (7-17) mg/dL Creatinine 1.57 H (0.52-1.04) mg/dL Estimated GFR 32.3 ML/MIN Glucose 253 H (74-106) mg/dL POC Glucometer 230 H (74 to 106) mg/dL Calcium 9.3 (8.4-10.2) mg/dL Total Bilirubin 0.40 (0.2-1.3) mg/dL AST 23 (14-36) U/L ALT 28 (0-35) U/L Alkaline Phosphatase 92 (38-126) U/L Serum Total Protein 6.6 (6.3-8.2) g/dL Albumin 3.7 (3.5-5.0) g/dL 02/04/24 02/04/24 Range/Units 06:58 11:16 WBC (3.98-10.04) x10^3/uL RBC (3.93-5.22) x10^6/uL Hgb (11.2-15.7) g/dL Hct (34.1-44.9) % MCV (79.4-94.8) fL MCH (25.6-32.2) pg MCHC (32.2-35.5) g/dL RDW (11.7-14.4) % Plt Count (182-369) x10^3/uL MPV (9.4-12.3) fL Gran % (34.0-71.1) % Immature Gran % (Auto) (0.001-0.429) % Nucleat RBC Rel Count (0.00-0.2) % Eos # (Auto) (0.04-0.36) x10^3/uL Immature Gran # (Auto) (0.001-0.031) x10^3u/L Absolute Lymphs (auto) (1.18-3.74) x10^3/uL Absolute Monos (auto) (0.24-0.86) x10^3/uL Absolute Nucleated RBC (0.00-0.012) x10^3u/L Lymphocytes % (19.3-51.7) % Monocytes % (4.7-12.5) % Eosinophils % (0.7-5.8) % Basophils % (0.1-1.2) % Absolute Granulocytes (1.56-6.13) x10^3/uL Basophils # (0.01-0.08) x10^3/uL Sodium (135-145) mmol/L Potassium (3.5-5.1) mmol/L Chloride (98-107) mmol/L Carbon Dioxide (22-30) mmol/L Anion Gap (5-15) MEQ/L BUN (7-17) mg/dL Creatinine (0.52-1.04) mg/dL Estimated GFR ML/MIN Glucose (74-106) mg/dL POC Glucometer 230 H 289 H (74 to 106) mg/dL Calcium (8.4-10.2) mg/dL Total Bilirubin (0.2-1.3) mg/dL AST (14-36) U/L ALT (0-35) U/L Alkaline Phosphatase (38-126) U/L Serum Total Protein (6.3-8.2) g/dL Albumin (3.5-5.0) g/dL Micro Results-Entire Visit: Microbiology 01/31/24 10:40 Blood Culture - Preliminary Blood 01/31/24 10:30 Blood Culture - Preliminary Blood 01/31/24 11:00 Urine Culture - Final Catherized NO GROWTH Accuchecks Date 02/04/24 Date 02/04/24 Date 02/03/24 Date 02/03/24 Date 02/03/24 Time 11:24 Time 07:17 Time 21:00 Time 13:44 Time 11:33 - Radiology Exams Ordered Rad Exams-Entire Visit: Radiology Procedures Category Date Time Status CHEST 1 VIEW (PORTABLE) Routine Exams 02/03/24 13:02 Completed - Procedures and Test Procedures and Tests throughout Hospitalization: Therapy Orders & Screens 01/31/24 13:37 Oxygen NASAL CANNULA 5 lpm Comment: 01/31/24 13:51 BiPap/CPAP ROUTINE Comment: 01/31/24 13:58 EKG REPEAT IN AM Comment: Oxygen Nasal Cannula 2 lpm Comment: Respiratory Therapy Consult ONCE Comment: Reason For Exam: 01/31/24 15:21 RT Screen per Nursing Assess ONCE Comment: Protocol Order Physician Instructions: Greater than 3 points order RT Admission Screen Reason For Exam: Triggered on Admission Diagnosis: Hypoxia/pneumonia Diagnosis: Hypoxia/pneumonia Home O2: Yes CHF: Yes Home CPAP/BIPAP: Yes Home Nebs/MDI: Yes Total Points: 18 ST Screen per Nursing Assess ONCE Comment: Protocol Order Physician Instructions: Greater than [address] Admission Screening Reason For Exam: Triggered on Admission Diagnosis: Hypoxia/pneumonia CVA/Dyshpagia/Aphasia: No Cognitive Deficits: No Dehydration/Nutrition Deficit: No Reflux: Yes Oral-Motor Difficulties: Yes Pneumonia: No Shelter Resident: No Total Points: 6 01/31/24 15:55 Respiratory Therapy Consult ONCE Comment: Reason For Exam: Diagnosis: Hypoxia/pneumonia 02/01/24 07:00 Respiratory MDI DAILY Comment: Respiratory Therapy Assessment DAILY Comment: Discharge Exam General Appearance: no apparent distress Neurologic Exam: alert, cooperative Eye Exam: PERRL Ears, Nose, Throat Exam: normal ENT inspection Neck Exam: normal inspection Respiratory Exam: crackles/rales Cardiovascular Exam: regular rate/rhythm, normal heart sounds Gastrointestinal/Abdomen Exam: soft, normal bowel sounds Pelvic Exam: deferred Rectal Exam: deferred Back Exam: normal inspection Extremity Exam: normal inspection Skin Exam: normal color Final Diagnosis/Problem List - Final Discharge Diagnosis/Problem (1) Acute respiratory failure with hypoxia Current Visit: Yes Status: Resolved Code(s): J96.01 - ACUTE RESPIRATORY FAILURE WITH HYPOXIA (2) Pneumonia Current Visit: Yes Status: Acute Code(s): J18.9 - PNEUMONIA, UNSPECIFIED ORGANISM (3) COPD with exacerbation Current Visit: Yes Status: Resolved Code(s): J44.1 - CHRONIC OBSTRUCTIVE PULMONARY DISEASE W (ACUTE) EXACERBATION (4) HTN (hypertension) Current Visit: Yes Status: Chronic Code(s): I10 - ESSENTIAL (PRIMARY) HYPERTENSION (5) HLD (hyperlipidemia) Current Visit: Yes Status: Chronic Code(s): E78.5 - HYPERLIPIDEMIA, UNSPECIFIED (6) GERD (gastroesophageal reflux disease) Current Visit: Yes Status: Chronic Code(s): K21.9 - GASTRO-ESOPHAGEAL REFLUX DISEASE WITHOUT ESOPHAGITIS (7) Chronic renal disease Current Visit: Yes Status: Chronic Code(s): N18.9 - CHRONIC KIDNEY DISEASE, UNSPECIFIED (8) CHF (congestive heart failure) Current Visit: No Status: Chronic Code(s): I50.9 - HEART FAILURE, UNSPECIFIED (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 Current Visit: No Status: Chronic Code(s): G30.9 - ALZHEIMER'S DISEASE, UNSPECIFIED; F02.80 - DEM IN OTH DIS CLASSD ELSWHR,UNSP SEV,W/O BEH/PSYCH/MOOD/ANX (10) Diabetes mellitus Current Visit: Yes Status: Chronic Code(s): E11.9 - TYPE 2 DIABETES MELLITUS WITHOUT COMPLICATIONS (11) Afib Current Visit: Yes Status: Chronic Code(s): I48.91 - UNSPECIFIED ATRIAL FIBRILLATION (12) MARIPOSA (obstructive sleep apnea) Current Visit: Yes Status: Chronic Code(s): G47.33 - OBSTRUCTIVE SLEEP APNEA (ADULT) (PEDIATRIC) - Discharge Disposition: Home, Self-Care Condition: Stable Prescriptions: New Prednisone 20 mg [Deltasone 20 mg] 20 mg PO BID 5 Days #10 tablet Cefpodoxime Proxetil 200 mg [Vantin 200 mg] 200 mg PO BID 7 Days #14 tablet Continue Apixaban [Eliquis 5 mg Tablet] 2.5 mg PO BID Bumetanide 1 mg [Bumex 1 mg] 1 mg PO DAILY Memantine HCl 5 mg PO QHS PANTOPRAZOLE 40 mg Tablet [Protonix 40MG Tablet] 40 mg PO DAILY Losartan Potassium [Cozaar] 100 mg PO DAILY Folic Acid 1 mg [Folate 1 mg] 1 mg PO DAILY Donepezil HCl [Aricept] 5 mg PO DAILY Amlodipine Besylate 5 mg [Norvasc 5 mg] 5 mg PO DAILY Atorvastatin Calcium 40 mg PO HS OLANZapine [Olanzapine] 10 mg PO HS Insulin Glargine,Hum.rec.anlog [Lantus] 20 unit SQ BID Escitalopram Oxalate [Lexapro] 10 mg PO DAILY Aspirin 81 gm Chew [Baby Aspirin 81 mg Chew] 81 mg PO DAILY Insulin Lispro [Humalog] 10 unit SQ TID Fluticasone/Umeclidin/Vilanter [Trelegy Ellipta 100-62.5-25] 1 puff IH DAILY Potassium Chloride 7.5 ml PO BID Albuterol 2.5 mg/3 ml Neb [Proventil 2.5 mg/3 ml Neb] 1 vial NEB TID Follow up with: TREVOR YOUNG [CONSULTING PHYSICIAN] - (sees Wendi Dumont in April) ERNA KELLY [CONSULTING PHYSICIAN] - 02/10/24 2:45 pm ([facility]Office) JANNETTE YADAV MD [Primary Care Provider] - 02/17/24 10:45 am
== END 2024-02-04 12:56 | disposition home or self-care (01) | DRG 189 ==
LOC: ED 09:32 → MED SURG 13:22
PROVIDERS: ADMIT Internal Medicine; ATTEND Internal Medicine
DX: J96.01 Acute respiratory failure with hypoxia (principal); J18.9 Pneumonia, unspecified organism; J44.1 Chronic obstructive pulmonary disease with (acute) exacerbation; I13.0 Hypertensive heart and chronic kidney disease with heart failure and stage 1 through stage 4 chronic kidney disease, or unspecified chronic kidney disease; E11.22 Type 2 diabetes mellitus with diabetic chronic kidney disease; I50.9 Heart failure, unspecified; N18.9 Chronic kidney disease, unspecified; E78.5 Hyperlipidemia, unspecified; K21.9 Gastro-esophageal reflux disease without esophagitis; G30.9 Alzheimer's disease, unspecified; F02.80 Dementia in other diseases classified elsewhere, unspecified severity, without behavioral disturbance, psychotic disturbance, mood disturbance, and anxiety; I48.91 Unspecified atrial fibrillation; G47.33 Obstructive sleep apnea (adult) (pediatric); R50.9 Fever, unspecified; Z79.01 Long term (current) use of anticoagulants; Z79.899 Other long term (current) drug therapy; Z86.73 Personal history of transient ischemic attack (TIA), and cerebral infarction without residual deficits
CPT/HCPCS: 0241U; 36000; 36415; 36600; 70450; 71045; 80053; 81001; 82140; 82375; 82803; 82947; 83036; 83605; 83735; 83880; 84484; 85025; 87040; 87086; 93005; 93041; 93306; 94002; 94003; 94640; 94760; 99285; 99291; P9612; Q3014; J0456; J0696; J1817; J2919; J7609; A9270-GY

== ENCOUNTER 2024-09-24 15:32 | Emergency (ER) | payer MEDICARE, OTHER ==
[2024-09-24 15:50] VITALS: TEMP 98.8
[2024-09-24] MEDS ORDERED: Sodium Chloride 0.9% 1000 ML 1,000 ML ONE (15:56)
[2024-09-24] MEDS: Sodium Chloride 0.9% 1000 ML 1,000 ML IV SCH (15:58)
[2024-09-24 16:06] LABS: BASOPHIL % 0.4 % (0.1-1.2); Basophil (Absolute #) 0.08 x10^3/uL (0.01-0.08); Eosinophil % 0.8 % (0.7-5.8); Eosinophil (Absolute #) 0.15 x10^3/uL (0.04-0.36); Hematocrit 35.2 % (34.1-44.9); Hemoglobin 10.8 g/dL (11.2-15.7); IMMATURE GRAN # 0.14 x10^3u/L (0.001-0.031); IMMATURE GRAN % 0.8 % (0.001-0.429); Lymphocyte (Absolute #) 0.88 x10^3/uL (1.18-3.74); Lymphocytes % 4.9 % (19.3-51.7); Mean Cell Volume 93.4 fL (79.4-94.8); Mean Corpuscular Hemoglobin 28.6 pg (25.6-32.2); Mean Corpuscular Hgb Concent. 30.7 g/dL (32.2-35.5); Mean Platelet Volume 9.5 fL (9.4-12.3); Monocyte (Absolute #) 1.32 x10^3/uL (0.24-0.86); Monocytes % 7.3 % (4.7-12.5); Neutrophil % 85.8 % (34.0-71.1); Platelet Count 315 x10^3/uL (182-369); Red Blood Count 3.77 x10^6/uL (3.93-5.22); Red Cell Distribution Width 15.6 % (11.7-14.4)
[2024-09-24 16:31] LABS: Appearance Clear (Clear); Bacteria None Seen /HPF (None Seen); Bilirubin Negative (Negative); Blood Negative (Negative); Epithelial Cells Few /HPF (None Seen); Glucose, Urine Negative (Negative); Ketones Negative (Negative); Leukocyte Esterase Negative (Negative); Nitrite Negative (Negative); Protein,Urine Dip 30 (Negative); RBC 0-2 /HPF (0-5); Urobilinogen 0.2 mg/dL (0.2)
[2024-09-24 16:32] LABS: ALBUMIN 3.8 g/dL (3.5-5.0); ANION GAP 22.1 MEQ/L (5-15); BILIRUBIN,TOTAL 0.6 mg/dL (0.2-1.3); Calcium 8.9 mg/dL (8.4-10.2); Creatinine 1 2.99 mg/dL (0.52-1.04); EST GLOMERULAR FILTRATION RATE 14.8 ML/MIN; TROPONIN 0.023 ng/mL (0.000-0.033); Total Protein 7.3 g/dL (6.3-8.2)
--- NOTE | 2024-09-24 16:36 | ERPHSYRPT ---
- History of Present Illness Historian: patient, family Patient Subjective Stated Complaint: PAIN IN GROIN Triage Nursing Assessment: PT BROUGHT IN VIA AMBULANCE. PT COLOR PALE, ABD DISTENDED WITH PAIN 10/10 INTERMEDIATE AND SHARP, MADE WORSE WITH PALPATION. PT EDEMA 1+ IN BLE. PT BSX4, HYPO. LUNGS SHOW INSP/EXP RONCHI THROUGHOUT, COUGH WET AND PRODUCTIVE. PT DENIES ANY FURTHER ISSUES. PT IS BURNS PAIUTE. Timing/Duration: today Quality: fullness, tightness Abdominal Pain Onset Location: RLQ, LLQ, suprapubic Pain Radiation: no radiation Severity of Pain-Max: moderate Severity of Pain-Current: moderate Modifying Factors: Improves With: nothing Associated Symptoms: denies symptoms Hx Tetanus, Diphtheria Vaccination/Date Given: Yes Hx Influenza Vaccination/Date Given: Yes Hx Pneumococcal Vaccination/Date Given: Yes Immunizations Up to Date: Yes <SAIGE GONG - Last Filed: 09/24/24 18:51> <LUIZ BURCIAGA - Last Filed: 09/24/24 20:19> - History of Present Illness Time Seen by Provider: 09/24/24 16:29 Physician History: Patient is a 84-year-old female with significant past medical history of Alzheimer dementia atrial fibrillation congestive heart failure chronic renal insufficiency recently was diagnosed with urinary tract infection and was sent home with ciprofloxacin. Patient is total care and her daughter is caregiver. According to the daughter patient started having a lower abdominal pain mainly in the groin area so ambulance was called in and patient was brought into the emergency room. (SAIGE GONG) Allergies/Adverse Reactions: carvedilol Allergy (Verified 09/24/24 15:41) Home Medications: Amlodipine Besylate 5 mg [Norvasc 5 mg] 5 mg PO DAILY 02/08/18 [History] Apixaban [Eliquis 5 mg Tablet] 2.5 mg PO BID 02/08/18 [History] Atorvastatin Calcium 40 mg PO HS 02/08/18 [History] Bumetanide 1 mg [Bumex 1 mg] 1 mg PO DAILY 02/08/18 [History] Donepezil HCl [Aricept] 10 mg PO DAILY 02/08/18 [History] Folic Acid 1 mg [Folate 1 mg] 1 mg PO DAILY 02/08/18 [History] Losartan Potassium [Cozaar] 100 mg PO DAILY 02/08/18 [History] Memantine HCl 5 mg PO QHS 02/08/18 [History] PANTOPRAZOLE 40 mg Tablet [Protonix 40MG Tablet] 40 mg PO DAILY 02/08/18 [History] OLANZapine [Olanzapine] 10 mg PO HS 02/27/19 [History] Insulin Glargine,Hum.rec.anlog [Lantus] 20 unit SQ BID 04/19/19 [History] Aspirin 81 gm Chew [Baby Aspirin 81 mg Chew] 81 mg PO DAILY 08/30/19 [History] Escitalopram Oxalate [Lexapro] 10 mg PO DAILY 08/30/19 [History] Insulin Lispro [Humalog] 10 unit SQ TID 08/31/19 [History] Fluticasone/Umeclidin/Vilanter [Trelegy Ellipta 100-62.5-25] 1 puff IH DAILY 07/09/21 [History] Albuterol 2.5 mg/3 ml Neb [Proventil 2.5 mg/3 ml Neb] 1 vial NEB TID 01/31/24 [History] Potassium Chloride 7.5 ml PO BID 01/31/24 [History] Travel Risk - International Travel Have you traveled outside of the country in past 3 weeks: No - Emerging Infectious Disease Are you exhibiting symptoms associated with any current EIDs: No Symptoms: Shortness of Breath <FARIDEH,SAIGE - Last Filed: 09/24/24 18:51> - Review of Systems Constitutional: Lethargy Eyes: No Symptoms Ears, Nose, & Throat: No Symptoms Respiratory: No Cough, No Dyspnea Cardiac: No Chest Pain, No Edema, No Syncope Abdominal/Gastrointestinal: Abdominal Pain (abdominal distension), No Nausea, No Vomiting, No Diarrhea Genitourinary Symptoms: No Dysuria Musculoskeletal: No Back Pain, No Neck Pain Skin: No Rash Neurological: No Dizziness, No Focal Weakness, No Sensory Changes Psychological: No Symptoms Endocrine: No Symptoms All Other Systems: Reviewed and Negative <FARIDEH,SAIGE - Last Filed: 09/24/24 18:51> - Past Medical History Pertinent Past Medical History: Yes Neurological History: Alzheimer's Disease, Dementia, Peripheral Neuropathy, Stroke ENT History: Cataracts Cardiac History: Hypertension Respiratory History: CHF, COPD, Sleep Apnea, Other Endocrine Medical History: Diabetes Type II Musculoskeletal History: Arthritis GI Medical History: Diverticulitis, Irritable Bowel History: No Pertinent History, Renal Disease Psycho-Social History: No Pertinent History Female Reproductive Disorders: No Pertinent History, Other Other Medical History: pt family states pt noncompliant with cpap, ovarian cysts - Past Surgical History Past Surgical History: Yes Neuro Surgical History: No Pertinent History Cardiac: No Pertinent History, Internal Defibrillator, Pacemaker Respiratory: No Pertinent History Gastrointestinal: No Pertinent History Genitourinary: Other Musculoskeletal: No Pertinent History Female Surgical History: Tubal Ligation Other Surgical History: ear surgery, cataract surgery, bladder tuck,lasik surgery. Kidney removed Significant Family History: no pertinent family hx - Social History Smoking Status: Former smoker Exposure to second hand smoke: No Drug Use: none - Social Determinants of Health Will the patient participate in the screening: Yes Do you worry about a steady place to live?: No Do you have any problems with any of the following?: No known problems In the past 12 months,have you had to go without utilities?: No Transportation Issues: No Has anyone in your support network made you feel unsafe?: No Have you or anyone in your house had to go w/o enough food: No <FARIDEH,SAIGE - Last Filed: 09/24/24 18:51> - Physical Exam General Appearance: moderate distress, lethargy Eye Exam: PERRL/EOMI, eyes nml inspection Ears, Nose, Throat Exam: normal ENT inspection, pharynx normal, moist mucous membranes Neck Exam: normal inspection, non-tender, supple, full range of motion Respiratory Exam: normal breath sounds, lungs clear, No respiratory distress Cardiovascular Exam: irregular, capillary refill >3 sec Gastrointestinal/Abdomen Exam: tenderness, distention, No mass Pelvic Exam: not done Rectal Exam: deferred Back Exam: normal inspection, normal range of motion, No CVA tenderness, No james tebral tenderness Extremity Exam: normal inspection, normal range of motion, pelvis stable Neurologic Exam: alert, disoriented, confusion, depressed mood/affect, motor weakness, No motor deficits Skin Exam: normal color, warm, dry SpO2 Interpretation: normal SpO2: 97 O2 Delivery: Room Air <FARIDEH,SAIGE - Last Filed: 09/24/24 18:51> - Nursing Vital Signs Nursing Vital Signs: Initial Vital Signs Temperature 98.8 F 09/24/24 15:48 Pulse Rate 84 09/24/24 15:48 Respiratory Rate 20 09/24/24 15:48 Blood Pressure 102/66 09/24/24 15:48 O2 Sat by Pulse Oximetry 97 09/24/24 15:48 Pain Scale Pain Intensity 0 - Course Nursing assessment & vital signs reviewed: Yes - CT Exams Abdomen/Pelvis CT Interpretation: Tele-radiologist Report <FARIDEH - Last Filed: 09/24/24 18:51> Ordered Tests: Active Orders 24 hr Category Date Time Status IV Insertion STAT Care 09/24/24 15:48 Active ABDOMEN AND PELVIS W/0 CONTRAS [CT] Stat Exams 09/24/24 16:49 Completed AMYLASE Stat Lab 09/24/24 16:00 Completed CBC W DIFF Stat Lab 09/24/24 16:00 Completed CMP Stat Lab 09/24/24 16:00 Completed CULTURE,URINE Stat Lab 09/24/24 15:48 Received LIPASE Stat Lab 09/24/24 16:00 Completed TROPONIN Stat Lab 09/24/24 16:00 Completed UA W/RFX UR CULTURE Stat Lab 09/24/24 15:48 Completed Medication Summary Generic Name Dose Route Start Last Admin Trade Name Freq PRN Reason Stop Dose Admin Sodium Chloride 1,000 mls @ 100 mls/hr 09/24/24 16:00 09/24/24 15:58 Sodium Chloride 0.9% 1000 Ml IV 10/24/24 15:59 100 mls/hr .Q10H ROSARIO Administration Discontinued Medications Generic Name Dose Route Start Last Admin Trade Name Freq PRN Reason Stop Dose Admin Ceftriaxone Sodium 1 gm in 100 mls @ 200 mls/hr 09/24/24 16:51 09/24/24 17:37 Rocephin 1 Gm / 100 Ml Nacl IV 09/24/24 17:20 Infused STAT ONE Infusion Ceftriaxone Sodium Confirm 09/24/24 16:58 Rocephin 1 Gm / 100 Ml Nacl Administered 09/24/24 16:59 Dose 1 gm in 100 mls @ ud IV .STK-MED ONE Morphine Sulfate 4 mg 09/24/24 18:29 09/24/24 18:52 Morphine Sulfate 4 Mg/Ml Injection IV 09/24/24 18:30 4 mg STAT ONE Administration Morphine Sulfate Confirm 09/24/24 18:51 Morphine Sulfate 4 Mg/Ml Injection Administered 09/24/24 18:52 Dose 4 mg .ROUTE .STK-MED ONE Lab/Rad Data: Laboratory Result Diagrams 09/24/24 16:00 09/24/24 16:00 Laboratory Results 09/24/24 09/24/24 09/24/24 Range/Units 16:00 16:00 15:48 WBC 18.0 H (3.98-10.04) x10^3/uL RBC 3.77 L (3.93-5.22) x10^6/uL Hgb 10.8 L (11.2-15.7) g/dL Hct 35.2 (34.1-44.9) % MCV 93.4 (79.4-94.8) fL MCH 28.6 (25.6-32.2) pg MCHC 30.7 L (32.2-35.5) g/dL RDW 15.6 H (11.7-14.4) % Plt Count 315 (182-369) x10^3/uL MPV 9.5 (9.4-12.3) fL Gran % 85.8 H (34.0-71.1) % Immature Gran % (Auto) 0.8 H (0.001-0.429) % Nucleat RBC Rel Count 0.0 (0.00-0.2) % Eos # (Auto) 0.15 (0.04-0.36) x10^3/uL Immature Gran # (Auto) 0.14 H (0.001-0.031) x10^3u/L Absolute Lymphs (auto) 0.88 L (1.18-3.74) x10^3/uL Absolute Monos (auto) 1.32 H (0.24-0.86) x10^3/uL Absolute Nucleated RBC 0.00 (0.00-0.012) x10^3u/L Lymphocytes % 4.9 L (19.3-51.7) % Monocytes % 7.3 (4.7-12.5) % Eosinophils % 0.8 (0.7-5.8) % Basophils % 0.4 (0.1-1.2) % Absolute Granulocytes 15.40 H (1.56-6.13) x10^3/uL Basophils # 0.08 (0.01-0.08) x10^3/uL Sodium 141 (135-145) mmol/L Potassium 5.0 (3.5-5.1) mmol/L Chloride 104 (98-107) mmol/L Carbon Dioxide 20 L (22-30) mmol/L Anion Gap 22.1 H (5-15) MEQ/L BUN 68 H (7-17) mg/dL Creatinine 2.99 H (0.52-1.04) mg/dL Estimated GFR 14.8 ML/MIN Glucose 152 H (74-106) mg/dL Calcium 8.9 (8.4-10.2) mg/dL Total Bilirubin 0.60 (0.2-1.3) mg/dL AST 40 H (14-36) U/L ALT 41 H (0-35) U/L Alkaline Phosphatase 203 H (38-126) U/L Troponin I 0.023 (0.000-0.033) ng/mL Serum Total Protein 7.3 (6.3-8.2) g/dL Albumin 3.8 (3.5-5.0) g/dL Amylase 60 (30-110) U/L Lipase 72 (23-300) U/L Urine Color Yellow (Yellow) Urine Appearance Clear (Clear) Urine pH 5.0 (4.6-8.0) Ur Specific [place] 1.020 (1.005-1.030) Urine Protein 30 (Negative) Urine Glucose (UA) Negative (Negative) mg/dL Urine Ketones Negative (Negative) Urine Blood Negative (Negative) Urine Nitrite Negative (Negative) Urine Bilirubin Negative (Negative) Urine Urobilinogen 0.2 (0.2) mg/dL Ur Leukocyte Esterase Negative (Negative) U Hyaline Cast (Auto) 3-5 A (0-2) /LPF Urine Microscopic RBC 0-2 (0-5) /HPF Urine Microscopic WBC 3-5 (0-5) /HPF Ur Epithelial Cells Few (None Seen) /HPF Urine Bacteria None Seen (None Seen) /HPF Urine Culture Reflexed YES (NO) - Progress Progress: unchanged Discussed with Dr.: Other (Dr Reji Valero (Residential Sales Manager) Hospitalist service at [facility].) Will see patient in: other ([facility]) Counseled pt/family regarding: lab results, diagnosis, need for follow-up, rad results <SAIGE GONG - Last Filed: 09/24/24 18:51> - Progress Discussed with Dr.: Other (Dr Reji Valero (Residential Sales Manager) Hospitalist service at [facility]. Dr. Stanton vascular surgery [facility]) Will see patient in: ED <LUIZ BURCIAGA - Last Filed: 09/24/24 20:19> - Progress Progress Note: 09/24/24 19:56 Patient is checked out to me at shift change from Dr. Gong with pending transfer to [facility]. He has already spoken with [place] information receptionist and was waiting for hospitalist to call back. Patient workup showed white count of 18, hemoglobin 10.8 and acute on chronic renal failure with a baseline creatinine of 1.5 and today is 2.9, BUN in 60s and gap of 22, patient is on fluids. 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 NGT will be placed I have spoken with Dr. Rogel from [facility], reviewed history, workup, agreed with transfer but I have reviewed the CT report which showing patient has aortic aneurysms 7 x 4.5 cm with possible impending leak which I have spoken with hospitalist who do not think patient is appropriate for transfer to [facility]. I have spoken with Dr. Stanton at 19: 48 vascular surgeon [facility], he has reviewed CT imaging, patient has stable vitals reviewed history of workup, agreed with transfer. I have shared the results of workup with patient and family and plan of transfer and high acuity of issue in detail which they understand and agree to go to [facility]. Complexity of condition addressed: High acuity Complexity of data reviewed/analyzed: Extensive Risk of complication/morbidity/mortality associated with condition.: High risk. (LUIZ BURCIAGA) Medical Desision Making - Independent Historian Additional History obtained from: Family - Discussion of managment Care discussed with:: specialist (Residential Sales Manager) Reviewed:: Need for additional workup Agreed on:: Treatment plan, decision to admit Will see patient: in hospital - Diagnostic Testing Diagnostic test were ordered, analyzed, and reviewed by me: Yes Radiological Interpretation: Teleradiologist Report - Risk of complications The pt has a high risk of morbidity or mortality based on: Decision regarding hospitilization or escalation of hosp level of care <SAIGE GONG - Last Filed: 09/24/24 18:51> - Diagnostic Testing Radiological Interpretation: Reviewed by me - Risk of complications The pt has a mod risk of morbidity or mortality based on: Need for prescription drug management The pt has a high risk of morbidity or mortality based on: Need for major surgery in patient with known risk factors, Decision regarding hospitilization or escalation of hosp level of care <LUIZ BURCIAGA - Last Filed: 09/24/24 20:19> - Departure Departure Disposition: Transfer ([facility]) Critical Care Time: Yes Critical Care Time(excluding separately billable procedures): Critical 30-74 mins <SAIGE GONG - Last Filed: 09/24/24 18:51> - Departure Critical Care Time: Yes Critical Care Time(excluding separately billable procedures): Critical 75-104 mins <LUIZ BURCIAGA - Last Filed: 09/24/24 20:19> - Departure Clinical Impression: Elevated liver enzymes, Subacute intestinal obstruction, Aortic aneurysm Acute on chronic renal failure Qualifiers: Acute renal failure type: unspecified Chronic kidney disease stage: stage 5 (GFR < 15), not on chronic dialysis Qualified Code(s): N17.9 - Acute kidney failure, unspecified CHF (congestive heart failure) Qualifiers: Heart failure type: combined systolic and diastolic Heart failure chronicity: chronic Qualified Code(s): I50.42 - Chronic combined systolic (congestive) and diastolic (congestive) heart failure Condition: Fair Referrals: JANNETTE YADAV MD [Primary Care Provider] - Follow up/PCP as directed Instructions: Heart Failure
[2024-09-24] MEDS ORDERED: ROCEPHIN 1 GM / 100 ML NaCl 1 GM/100 ML IVPB IV ONE (16:58)
[2024-09-24] MEDS: ROCEPHIN 1 GM / 100 ML NaCl 1 GM/100 ML IVPB IV ONE (17:07)
[2024-09-24] MEDS ORDERED: MORPHINE SULFATE 4 MG INJ ONE (18:51)
[2024-09-24] MEDS: MORPHINE SULFATE 4 MG INJ IV ONE (18:52)
--- NOTE | 2024-09-24 19:01 | XRAY ---
CLINICAL HISTORY: abdominal distension COMPARISON: "No prior studies available for comparison." TECHNIQUE: Non-contrast CT of the abdomen and pelvis was performed, with the following protocol: axial images, and reconstructed coronal and sagittal images. No intravenous contrast was administered. One of the following dose reduction techniques was utilized for this exam: Automated exposure control, adjustment of the mA and/or kV according to patient size, and use of iterative reconstruction. FINDINGS: Abdomen: A large pelvi-abdominal lobulated multilocular cystic lesion is seen measuring 17.5 x 17 x 25 cm along its maximum craniocaudal and axial dimensions, respectively. It is seen splaying the adjacent bowel loops. Inferiorly, it is seen filling the pelvis, merging with the uterus and left adnexa as well as indenting the dome of the urinary bladder. It shows hypodense content with internal septae with no calcifications. Mild dilatation of the small bowel loops showing multiple air fluid levels and measuring up to 4.7 cm. The terminal ileum is not dilatated. No masses. The different colonic segments are seen loaded with fecal matter yet no pathological dilatation or masses. Multiple colonic diverticulae are noted. No extra luminal air. Diffuse atherosclerotic changes and extensive atheromatous calcifications of the abdominal aorta and its branches. The aorta shows fusiform aneurysmal dilatation with large left side saccular aneurysm seen just inferior to the level of the renal artery and directed laterally measuring 7 x 4.5 cm in maximum axial dimensions. The saccular aneurysm shows peripheral hyper density and bulging beyond/causing break of the mural atheromatous calcific plaques. No adjacent extra luminal collection. Mild diffuse stranding of the mesenteric fat planes. Liver: Normal in size, shape, and density. No focal lesions, cysts, or masses were identified. Gallbladder and Biliary System: The gallbladder is not well visualized. no biliary dilatation. Pancreas: Mild atrophic changes. No pancreatic masses or calcifications were noted. Spleen: Normal in size, shape, and density. No splenic lesions or masses were identified. Kidneys and Adrenal Glands: The left kidney is surgically removed. normal right kidney apart from cortical cyst. Cortical thickness is within normal limits. No renal calculi or hydronephrosis. Adrenal glands are unremarkable. Pelvis: Urinary Bladder: is underfilled with Lea's catheter seen within it. Appendix: Non-visualized. Peritoneal and Retroperitoneal Structures: Minimal pelvic fluid. Bones and Soft Tissues: lumbar spondylosis. L4 spondylolisthesis. Pelvic bones and soft tissues are unremarkable. No fractures or abnormal masses were identified. Scanned lung bases showed bilateral pleural effusion with right lower lung lobe subsegmental confluent consolidation patches. IMPRESSION: 1. Large pelvi abdominal lobulated multilocular cystic lesion showing progression since the prior study and likey ovarian neoplasm. 2. Currently noted mild dilatation of the small bowel loops showing multiple air fluid levels likely subacute obstruction possibly ileus versus adhesive. No sizable masses. for clinical correlation and follow up CT with oral contrast (gastrografin) 3. Fecal loading within the colon with multiple,e diverticulae. 4. Stable diffuse atherosclerotic changes and extensive atheromatous calcifications of the abdominal aorta and its branches as well as the aortic fusiform aneurysmal dilatation with large left side saccular aneurysm showing features as described worrisome for impending rupture/leakage. 5. Scanned lung bases showed bilateral pleural effusion with subsegmental confluent consolidative patches in the right lower lung lobe. [facility] was called at at 5:38 PM 09/24/2024 and the results were verbally communicated to Carla (DOM). She will inform the doctor about the findings. Electronically Signed by: Cristal Ervin MD. (09/24/2024 18:57:37 EDT)
[2024-09-24 21:59] VITALS: BP 131/72; PULSE 76; RESP 18; O2SAT 98
--- NOTE | 2024-09-25 08:45 | XRAY ---
Indication: NG tube placement. Comparison: February 03, 2024 Limited portable chest demonstrates new NG tube traversing chest with tip in stomach. Lungs slightly underinflated with new mild left and minimal right base infiltrates/atelectasis. 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 Bony thorax intact again with osteopenia and degenerative changes.
== END 2024-09-24 21:40 | disposition short-term general hospital (02) ==
LOC: ED 15:32
DX: K56.609 Unspecified intestinal obstruction, unspecified as to partial versus complete obstruction (principal); I71.43 Infrarenal abdominal aortic aneurysm, without rupture; R74.8 Abnormal levels of other serum enzymes; I13.2 Hypertensive heart and chronic kidney disease with heart failure and with stage 5 chronic kidney disease, or end stage renal disease; N18.5 Chronic kidney disease, stage 5; I50.42 Chronic combined systolic (congestive) and diastolic (congestive) heart failure; N17.9 Acute kidney failure, unspecified; R10.2 Pelvic and perineal pain; E11.42 Type 2 diabetes mellitus with diabetic polyneuropathy; Z79.01 Long term (current) use of anticoagulants; Z79.4 Long term (current) use of insulin; Z79.899 Other long term (current) drug therapy
CPT/HCPCS: 36415; 51702; 71045; 74176; 80053; 81001; 82150; 83690; 84484; 85025; 87086; 96361; 96365; 96375; 99285; 99291; 99292; J0696; J2270

== ENCOUNTER 2025-04-09 16:39 | Inpatient (IN) | payer MEDICARE, OTHER ==
--- NOTE | 2025-04-09 16:54 | ERPHSYRPT ---
- History of Present Illness Time Seen by Provider: 04/09/25 16:53 Historian: patient, EMS, old records Exam Limitations: clinical condition Physician History: This is an 85-year-old white female patient who is morbidly obese and has multiple medical conditions brought to the emergency department because of vomiting at home earlier today. Patient's primary care provider is Dr. Hoff. Patient is a poor historian. The history was obtained from the daughter who lives with her at home and she provided additional independent history. Paramedics also provided additional independent history. Patient has no chest pain and occasional cough. However she does have generalized abdominal pain. Patient has a history of COPD and does wear 2 L of oxygen via nasal cannula. She has been unable to keep fluids down all day. Patient has no prior history of small bowel obstructions. She does have a history of hypertension, hyperlipidemia, gastroesophageal reflux disease, insulin-dependent diabetes, CHF, COPD, Alzheimer dementia, pacemaker and defibrillator in place, bilateral tubal ligation, irritable bowel syndrome, nephrectomy with chronic renal disease, CVA and peripheral neuropathy. Timing/Duration: today Quality: cramping, pressure Abdominal Pain Onset Location: generalized abdomen Severity of Pain-Max: moderate Severity of Pain-Current: moderate Modifying Factors: Improves With: vomiting Associated Symptoms: loss of appetite, nausea, vomiting, weakness, No chest pain, No diarrhea, No fever/chills, No shortness of breath Previous symptoms: no prior history, no recent treatment Allergies/Adverse Reactions: carvedilol Allergy (Verified 04/09/25 16:47) Home Medications: Amlodipine Besylate 5 mg [Norvasc 5 mg] 5 mg PO DAILY 02/08/18 [History] Apixaban [Eliquis 5 mg Tablet] 2.5 mg PO BID 02/08/18 [History] Atorvastatin Calcium 40 mg PO HS 02/08/18 [History] Bumetanide 1 mg [Bumex 1 mg] 1 mg PO DAILY 02/08/18 [History] Donepezil HCl [Aricept] 10 mg PO DAILY 02/08/18 [History] Folic Acid 1 mg [Folate 1 mg] 1 mg PO DAILY 02/08/18 [History] Losartan Potassium [Cozaar] 100 mg PO DAILY 02/08/18 [History] Memantine HCl 5 mg PO QHS 02/08/18 [History] PANTOPRAZOLE 40 mg Tablet [Protonix 40MG Tablet] 40 mg PO DAILY 02/08/18 [History] OLANZapine [Olanzapine] 10 mg PO HS 02/27/19 [History] Insulin Glargine,Hum.rec.anlog [Lantus] 20 unit SQ UD 04/19/19 [History] Aspirin 81 gm Chew [Baby Aspirin 81 mg Chew] 81 mg PO DAILY 08/30/19 [History] Escitalopram Oxalate [Lexapro] 10 mg PO DAILY 08/30/19 [History] Insulin Lispro [Humalog] 10 unit SQ TID 08/31/19 [History] Fluticasone/Umeclidin/Vilanter [Trelegy Ellipta 100-62.5-25] 1 puff IH DAILY 07/09/21 [History] Albuterol 2.5 mg/3 ml Neb [Proventil 2.5 mg/3 ml Neb] 1 vial NEB TID 01/31/24 [History] Potassium Chloride 7.5 ml PO BID 01/31/24 [History] Cholecalciferol (Vitamin D3) [Vitamin D] 1,000 unit PO UD 04/09/25 [History] Hx Tetanus, Diphtheria Vaccination/Date Given: Yes Hx Influenza Vaccination/Date Given: Yes Hx Pneumococcal Vaccination/Date Given: Yes Travel Risk - International Travel Have you traveled outside of the country in past 3 weeks: No - Emerging Infectious Disease Are you exhibiting symptoms associated with any current EIDs: No Symptoms: Shortness of Breath - Review of Systems Constitutional: Weakness Eyes: No Symptoms Ears, Nose, & Throat: No Symptoms Respiratory: No Symptoms Cardiac: No Symptoms Abdominal/Gastrointestinal: Abdominal Pain, Nausea, Vomiting, Appetite Changes Genitourinary Symptoms: No Symptoms Musculoskeletal: No Symptoms Skin: No Symptoms Neurological: No Symptoms Psychological: No Symptoms Endocrine: No Symptoms Hematologic/Lymphatic: No Symptoms Immunological/Allergic: No Symptoms All Other Systems: Reviewed and Negative - Past Medical History Pertinent Past Medical History: Yes Neurological History: Alzheimer's Disease, Dementia, Peripheral Neuropathy, Stroke ENT History: Cataracts Cardiac History: Hypertension Respiratory History: CHF, COPD, Sleep Apnea, Other Endocrine Medical History: Diabetes Type II Musculoskeletal History: Arthritis GI Medical History: Diverticulitis, Irritable Bowel History: No Pertinent History, Renal Disease Psycho-Social History: No Pertinent History Female Reproductive Disorders: No Pertinent History, Other Other Medical History: pt family states pt noncompliant with cpap, ovarian cysts. THICKENED LIQUIDS BY MOUTH - Past Surgical History Past Surgical History: Yes Neuro Surgical History: No Pertinent History Cardiac: No Pertinent History, Internal Defibrillator, Pacemaker Respiratory: No Pertinent History Gastrointestinal: No Pertinent History Genitourinary: Other Musculoskeletal: No Pertinent History Female Surgical History: Tubal Ligation Other Surgical History: ear surgery, cataract surgery, bladder tuck,lasik surgery. Kidney removed Significant Family History: no pertinent family hx - Social History Smoking Status: Former smoker Exposure to second hand smoke: No Drug Use: none - Social Determinants of Health Will the patient participate in the screening: Yes Do you worry about a steady place to live?: No In the past 12 months,have you had to go without utilities?: No Transportation Issues: No Has anyone in your support network made you feel unsafe?: No Have you or anyone in your house had to go w/o enough food: No - Nursing Vital Signs Nursing Vital Signs: Initial Vital Signs Temperature 97.2 F 04/09/25 16:47 Pulse Rate 68 04/09/25 16:47 Respiratory Rate 16 04/09/25 16:47 Blood Pressure 138/98 04/09/25 16:47 O2 Sat by Pulse Oximetry 95 04/09/25 16:47 Pain Scale Pain Intensity 5 - Physical Exam General Appearance: mild distress, alert, anxiety, obese Eye Exam: PERRL/EOMI, eyes nml inspection Ears, Nose, Throat Exam: normal ENT inspection, dry mucous membranes Neck Exam: normal inspection, non-tender, supple, full range of motion Respiratory Exam: normal breath sounds, lungs clear, airway intact, No chest tenderness, No respiratory distress Cardiovascular Exam: regular rate/rhythm, normal heart sounds, normal peripheral pulses Gastrointestinal/Abdomen Exam: tenderness (Generalized diffuse to palpation), distention, guarding (Generalized diffuse to palpation), rebound (Mild diffuse to palpation) Pelvic Exam: not done Rectal Exam: not done Back Exam: normal inspection, normal range of motion, No CVA tenderness, No vertebral tenderness Extremity Exam: normal inspection, normal range of motion, pelvis stable Neurologic Exam: cooperative, manager lab II-XII nml as tested, other (Mildly lethargic. Rousable and answers questions. However patient has Alzheimer's dementia) Skin Exam: normal color, warm, dry Lymphatic Exam: No adenopathy SpO2 Interpretation: normal SpO2: 95 O2 Delivery: Nasal Cannula (2 L oxygen) - Course Nursing assessment & vital signs reviewed: Yes Ordered Tests: Active Orders 24 hr Category Date Time Status Lea [Catheter-Dawn Lea] STAT Care 04/09/25 18:17 Active IV Insertion STAT Care 04/09/25 17:21 Active Pulse Oximetry (ED) STAT Care 04/09/25 17:21 Active ABDOMEN AND PELVIS W/0 CONTRAS [CT] Stat Exams 04/09/25 18:41 Ordered AMYLASE Stat Lab 04/09/25 17:50 Completed BLOOD CULTURE Stat Lab 04/09/25 18:22 Received CBC W DIFF Stat Lab 04/09/25 17:50 Completed CMP Stat Lab 04/09/25 17:50 Completed CULTURE,URINE Stat Lab 04/09/25 18:12 Received LIPASE Stat Lab 04/09/25 17:50 Completed Lactic Acid Stat Lab 04/09/25 17:36 Completed MAGNESIUM Stat Lab 04/09/25 17:50 Completed MONO SCREEN Stat Lab 04/09/25 17:50 Completed NT PRO BNPII Stat Lab 04/09/25 17:50 Completed PROCALCITONIN Stat Lab 04/09/25 17:50 Completed TROPONIN Q4H Lab 04/09/25 17:50 Completed TROPONIN Q4H Lab 04/09/25 21:45 Ordered TROPONIN Q4H Lab 04/10/25 01:45 Ordered UA W/RFX UR CULTURE Stat Lab 04/09/25 18:12 Completed Medication Summary Discontinued Medications Generic Name Dose Route Start Last Admin Trade Name Freq PRN Reason Stop Dose Admin Sodium Chloride 1,000 mls @ 999 mls/hr 04/09/25 17:36 04/09/25 17:54 Sodium Chloride 0.9% 1000 Ml IV 04/09/25 18:36 999 mls/hr .Q1H1M STA Administration Sodium Chloride Confirm 04/09/25 17:43 Sodium Chloride 0.9% 1000 Ml Administered 04/09/25 17:44 Dose 1,000 mls @ ud .ROUTE .STK-MED ONE Ondansetron HCl 4 mg 04/09/25 17:36 04/09/25 17:56 Ondansetron Hcl 4 Mg/2 Ml Vial IV 04/09/25 17:37 4 mg STAT ONE Administration Ondansetron HCl Confirm 04/09/25 17:43 Ondansetron Hcl 4 Mg/2 Ml Vial Administered 04/09/25 17:44 Dose 4 mg .ROUTE .STK-MED ONE Pantoprazole Sodium 40 mg 04/09/25 17:36 04/09/25 17:58 Pantoprazole 40 Mg Vial IV 04/09/25 17:37 40 mg STAT ONE Administration Pantoprazole Sodium Confirm 04/09/25 17:43 Pantoprazole 40 Mg Vial Administered 04/09/25 17:44 Dose 40 mg IV .STK-MED ONE Lab/Rad Data: Laboratory Result Diagrams 04/09/25 17:50 04/09/25 17:50 Laboratory Results 04/09/25 04/09/25 04/09/25 Range/Units 18:12 17:50 17:50 WBC (3.98-10.04) x10^3/uL RBC (3.93-5.22) x10^6/uL Hgb (11.2-15.7) g/dL Hct (34.1-44.9) % MCV (79.4-94.8) fL MCH (25.6-32.2) pg MCHC (32.2-35.5) g/dL RDW (11.7-14.4) % Plt Count (182-369) x10^3/uL MPV (9.4-12.3) fL Gran % (34.0-71.1) % Immature Gran % (Auto) (0.001-0.429) % Nucleat RBC Rel Count (0.00-0.2) % Eos # (Auto) (0.04-0.36) x10^3/uL Immature Gran # (Auto) (0.001-0.031) x10^3u/L Absolute Lymphs (auto) (1.18-3.74) x10^3/uL Absolute Monos (auto) (0.24-0.86) x10^3/uL Absolute Nucleated RBC (0.00-0.012) x10^3u/L Lymphocytes % (19.3-51.7) % Monocytes % (4.7-12.5) % Eosinophils % (0.7-5.8) % Basophils % (0.1-1.2) % Absolute Granulocytes (1.56-6.13) x10^3/uL Basophils # (0.01-0.08) x10^3/uL Sodium (135-145) mmol/L Potassium (3.5-5.1) mmol/L Chloride (98-107) mmol/L Carbon Dioxide (22-30) mmol/L Anion Gap (5-15) MEQ/L BUN (7-17) mg/dL Creatinine (0.52-1.04) mg/dL Estimated GFR ML/MIN Glucose (74-106) mg/dL Lactic Acid (0.4-2.0) Calcium (8.4-10.2) mg/dL Magnesium (1.6-2.3) mg/dL Total Bilirubin (0.2-1.3) mg/dL AST (14-36) U/L ALT (0-35) U/L Alkaline Phosphatase (38-126) U/L Troponin I (0.000-0.033) ng/mL NT-Pro-B Natriuret Pep (<300) pg/mL Serum Total Protein (6.3-8.2) g/dL Albumin (3.5-5.0) g/dL Amylase (30-110) U/L Lipase (23-300) U/L Procalcitonin 0.244 H (0.030-0.080) ng/mL Urine Color Yellow (Yellow) Urine Appearance Cloudy A (Clear) Urine pH 6.5 (4.6-8.0) Ur Specific [place] 1.020 (1.005-1.030) Urine Protein 30 (Negative) Urine Glucose (UA) Negative (Negative) mg/dL Urine Ketones Trace A (Negative) Urine Blood Negative (Negative) Urine Nitrite Negative (Negative) Urine Bilirubin Negative (Negative) Urine Urobilinogen 1.0 A (0.2) mg/dL Ur Leukocyte Esterase Large A (Negative) U Hyaline Cast (Auto) 20-50 (0-2) /LPF Urine Microscopic RBC 0-2 (0-5) /HPF Urine Microscopic WBC >100 A (0-5) /HPF Ur Epithelial Cells Rare (None Seen) /HPF Urine Bacteria Many A (None Seen) /HPF Urine Culture Reflexed YES (NO) Monoscreen NEGATIVE (NEGATIVE) 04/09/25 04/09/25 04/09/25 Range/Units 17:50 17:50 17:50 WBC 22.4 H (3.98-10.04) x10^3/uL RBC 4.74 (3.93-5.22) x10^6/uL Hgb 12.9 (11.2-15.7) g/dL Hct 42.0 (34.1-44.9) % MCV 88.6 (79.4-94.8) fL MCH 27.2 (25.6-32.2) pg MCHC 30.7 L (32.2-35.5) g/dL RDW 18.2 H (11.7-14.4) % Plt Count 336 (182-369) x10^3/uL MPV 9.7 (9.4-12.3) fL Gran % 85.2 H (34.0-71.1) % Immature Gran % (Auto) 0.5 H (0.001-0.429) % Nucleat RBC Rel Count 0.0 (0.00-0.2) % Eos # (Auto) 0 L (0.04-0.36) x10^3/uL Immature Gran # (Auto) 0.12 H (0.001-0.031) x10^3u/L Absolute Lymphs (auto) 1.53 (1.18-3.74) x10^3/uL Absolute Monos (auto) 1.56 H (0.24-0.86) x10^3/uL Absolute Nucleated RBC 0.00 (0.00-0.012) x10^3u/L Lymphocytes % 6.8 L (19.3-51.7) % Monocytes % 7.0 (4.7-12.5) % Eosinophils % 0.0 L (0.7-5.8) % Basophils % 0.5 (0.1-1.2) % Absolute Granulocytes 19.05 H (1.56-6.13) x10^3/uL Basophils # 0.11 H (0.01-0.08) x10^3/uL Sodium 143 (135-145) mmol/L Potassium 4.6 (3.5-5.1) mmol/L Chloride 100 (98-107) mmol/L Carbon Dioxide 32 H (22-30) mmol/L Anion Gap 15.8 H (5-15) MEQ/L BUN 50 H (7-17) mg/dL Creatinine 3.01 H (0.52-1.04) mg/dL Estimated GFR 14.6 ML/MIN Glucose 173 H (74-106) mg/dL Lactic Acid (0.4-2.0) Calcium 10.0 (8.4-10.2) mg/dL Magnesium 2.6 H (1.6-2.3) mg/dL Total Bilirubin 0.40 (0.2-1.3) mg/dL AST 33 (14-36) U/L ALT 23 (0-35) U/L Alkaline Phosphatase 115 (38-126) U/L Troponin I 0.040 H* (0.000-0.033) ng/mL NT-Pro-B Natriuret Pep 2600 (<300) pg/mL Serum Total Protein 9.3 H (6.3-8.2) g/dL Albumin 4.7 (3.5-5.0) g/dL Amylase 76 (30-110) U/L Lipase 41 (23-300) U/L Procalcitonin (0.030-0.080) ng/mL Urine Color (Yellow) Urine Appearance (Clear) Urine pH (4.6-8.0) Ur Specific [place] (1.005-1.030) Urine Protein (Negative) Urine Glucose (UA) (Negative) mg/dL Urine Ketones (Negative) Urine Blood (Negative) Urine Nitrite (Negative) Urine Bilirubin (Negative) Urine Urobilinogen (0.2) mg/dL Ur Leukocyte Esterase (Negative) U Hyaline Cast (Auto) (0-2) /LPF Urine Microscopic RBC (0-5) /HPF Urine Microscopic WBC (0-5) /HPF Ur Epithelial Cells (None Seen) /HPF Urine Bacteria (None Seen) /HPF Urine Culture Reflexed (NO) Monoscreen (NEGATIVE) 04/09/25 Range/Units 17:36 WBC (3.98-10.04) x10^3/uL RBC (3.93-5.22) x10^6/uL Hgb (11.2-15.7) g/dL Hct (34.1-44.9) % MCV (79.4-94.8) fL MCH (25.6-32.2) pg MCHC (32.2-35.5) g/dL RDW (11.7-14.4) % Plt Count (182-369) x10^3/uL MPV (9.4-12.3) fL Gran % (34.0-71.1) % Immature Gran % (Auto) (0.001-0.429) % Nucleat RBC Rel Count (0.00-0.2) % Eos # (Auto) (0.04-0.36) x10^3/uL Immature Gran # (Auto) (0.001-0.031) x10^3u/L Absolute Lymphs (auto) (1.18-3.74) x10^3/uL Absolute Monos (auto) (0.24-0.86) x10^3/uL Absolute Nucleated RBC (0.00-0.012) x10^3u/L Lymphocytes % (19.3-51.7) % Monocytes % (4.7-12.5) % Eosinophils % (0.7-5.8) % Basophils % (0.1-1.2) % Absolute Granulocytes (1.56-6.13) x10^3/uL Basophils # (0.01-0.08) x10^3/uL Sodium (135-145) mmol/L Potassium (3.5-5.1) mmol/L Chloride (98-107) mmol/L Carbon Dioxide (22-30) mmol/L Anion Gap (5-15) MEQ/L BUN (7-17) mg/dL Creatinine (0.52-1.04) mg/dL Estimated GFR ML/MIN Glucose (74-106) mg/dL Lactic Acid 1.2 (0.4-2.0) Calcium (8.4-10.2) mg/dL Magnesium (1.6-2.3) mg/dL Total Bilirubin (0.2-1.3) mg/dL AST (14-36) U/L ALT (0-35) U/L Alkaline Phosphatase (38-126) U/L Troponin I (0.000-0.033) ng/mL NT-Pro-B Natriuret Pep (<300) pg/mL Serum Total Protein (6.3-8.2) g/dL Albumin (3.5-5.0) g/dL Amylase (30-110) U/L Lipase (23-300) U/L Procalcitonin (0.030-0.080) ng/mL Urine Color (Yellow) Urine Appearance (Clear) Urine pH (4.6-8.0) Ur Specific [place] (1.005-1.030) Urine Protein (Negative) Urine Glucose (UA) (Negative) mg/dL Urine Ketones (Negative) Urine Blood (Negative) Urine Nitrite (Negative) Urine Bilirubin (Negative) Urine Urobilinogen (0.2) mg/dL Ur Leukocyte Esterase (Negative) U Hyaline Cast (Auto) (0-2) /LPF Urine Microscopic RBC (0-5) /HPF Urine Microscopic WBC (0-5) /HPF Ur Epithelial Cells (None Seen) /HPF Urine Bacteria (None Seen) /HPF Urine Culture Reflexed (NO) Monoscreen (NEGATIVE) - Progress Progress Note: 04/09/25 18:51 My medical decision making and the assignment of high complexity to this patient's medical issue today is based on review of the patient's past medical history, reviewed the patient's medication list, reviewed patient drug allergy list, history present does not physical findings on examination. The workup in this patient includes placement of intravenous line, infusion of normal same solution, urinalysis, CBC, CMP, lactic acid level, amylase, lipase, procalcitonin level, CT scan of the abdomen pelvis without contrast, infusion of Zofran, Protonix and 2 mg of intravenous morphine. Differential diagnosis includes but is not limited to bowel obstruction, pancreatitis, diverticulitis, colitis, pyelonephritis I am transferring care of this patient to Dr. Magdaleno at shift change. He will follow-up on pending study results and make final disposition. - Departure Departure Disposition: In-patient Admission Clinical Impression: Abdominal pain, Vomiting Condition: Fair Critical Care Time: No Referrals: JANNETTE YADAV MD [Primary Care Provider, [facility]] - Follow up/PCP as directed
[2025-04-09] MEDS ORDERED: PROTONIX 40 MG IV IV ONE (17:43)
[2025-04-09] MEDS ORDERED: Zofran 4 MG/2 ML VIAL ONE (17:43)
[2025-04-09 17:52] LABS: BASOPHIL % 0.5 % (0.1-1.2); Basophil (Absolute #) 0.11 x10^3/uL (0.01-0.08); Eosinophil (Absolute #) 0 x10^3/uL (0.04-0.36); Hematocrit 42.0 % (34.1-44.9); Hemoglobin 12.9 g/dL (11.2-15.7); IMMATURE GRAN # 0.12 x10^3u/L (0.001-0.031); IMMATURE GRAN % 0.5 % (0.001-0.429); Lymphocyte (Absolute #) 1.53 x10^3/uL (1.18-3.74); Mean Corpuscular Hemoglobin 27.2 pg (25.6-32.2); Mean Corpuscular Hgb Concent. 30.7 g/dL (32.2-35.5); Monocyte (Absolute #) 1.56 x10^3/uL (0.24-0.86); NUCLEATED RBC # 0.00 x10^3u/L (0.00-0.012); NUCLEATED RBC % 0.0 % (0.00-0.2); Platelet Count 336 x10^3/uL (182-369); Red Blood Count 4.74 x10^6/uL (3.93-5.22); White Blood Count 22.4 x10^3/uL (3.98-10.04)
[2025-04-09] MEDS: Zofran 4 MG/2 ML VIAL IV ONE (17:56)
[2025-04-09] MEDS: PROTONIX 40 MG IV IV ONE (17:58)
[2025-04-09 18:10] LABS: Calcium 10.0 mg/dL (8.4-10.2); Carbon Dioxide 32.0 mmol/L (22-30); Creatinine 1 3.01 mg/dL (0.52-1.04); EST GLOMERULAR FILTRATION RATE 14.6 ML/MIN; Glucose 173.0 mg/dL (74-106); Potassium 4.6 mmol/L (3.5-5.1); SGOT/AST 33.0 U/L (14-36); SGPT/ALT 23.0 U/L (0-35); Total Protein 9.3 g/dL (6.3-8.2)
[2025-04-09 18:21] LABS: NT PRO BNPII 2600.0 pg/mL (<300)
[2025-04-09 18:41] LABS: TROPONIN 0.04 ng/mL (0.000-0.033)
[2025-04-09 18:42] LABS: Glucose, Urine Negative (Negative); Protein,Urine Dip 30 (Negative); RBC 0-2 /HPF (0-5); WBC >100 /HPF (0-5)
[2025-04-09 19:10] LABS: INFLUENZA A NEGATIVE (NEGATIVE); INFLUENZA B NEGATIVE (NEGATIVE); RESPIRATORY SYNCTIAL VIRUS NEGATIVE (NEGATIVE); SARS-CoV-2 Xpert Express NEGATIVE (NEGATIVE)
[2025-04-09] MEDS ORDERED: MORPHINE SULFATE 2 MG INJ ONE (19:13)
[2025-04-09] MEDS: MORPHINE SULFATE 2 MG INJ IV ONE (19:14)
[2025-04-09 20:18] LABS: Slide Review 1 YES
[2025-04-09] MEDS ORDERED: ROCEPHIN 1 GM / 100 ML NaCl 1 GM/100 ML IVPB IV ONE (21:16)
--- NOTE | 2025-04-09 21:17 | ERPHSYRPT ---
- History of Present Illness Time Seen by Provider: 04/09/25 16:53 Patient Subjective Stated Complaint: PT HERE FOR VOMITING TODAY AT HOME, HER DAUGHTER TAKES CARE OF HER, PT IS A POOR HISTORIAN, EMS STATES SHE IS UNABLE TO KEEP FLUIDS DOWN, Triage Nursing Assessment: PT ALERT, HARD TO UNDERSTAND, RESP EASY, O2 2 NC PER HOME, OCC COUGH, ABD DISTENDED EDEMA TO LOWER LEGS, Allergies/Adverse Reactions: carvedilol Allergy (Verified 04/09/25 16:47) Home Medications: Amlodipine Besylate 5 mg [Norvasc 5 mg] 5 mg PO DAILY 02/08/18 [History] Apixaban [Eliquis 5 mg Tablet] 2.5 mg PO BID 02/08/18 [History] Atorvastatin Calcium 40 mg PO HS 02/08/18 [History] Bumetanide 1 mg [Bumex 1 mg] 1 mg PO DAILY 02/08/18 [History] Donepezil HCl [Aricept] 10 mg PO DAILY 02/08/18 [History] Folic Acid 1 mg [Folate 1 mg] 1 mg PO DAILY 02/08/18 [History] Losartan Potassium [Cozaar] 100 mg PO DAILY 02/08/18 [History] Memantine HCl 5 mg PO QHS 02/08/18 [History] PANTOPRAZOLE 40 mg Tablet [Protonix 40MG Tablet] 40 mg PO DAILY 02/08/18 [History] OLANZapine [Olanzapine] 10 mg PO HS 02/27/19 [History] Insulin Glargine,Hum.rec.anlog [Lantus] 20 unit SQ UD 04/19/19 [History] Aspirin 81 gm Chew [Baby Aspirin 81 mg Chew] 81 mg PO DAILY 08/30/19 [History] Escitalopram Oxalate [Lexapro] 10 mg PO DAILY 08/30/19 [History] Insulin Lispro [Humalog] 10 unit SQ TID 08/31/19 [History] Fluticasone/Umeclidin/Vilanter [Trelegy Ellipta 100-62.5-25] 1 puff IH DAILY 07/09/21 [History] Albuterol 2.5 mg/3 ml Neb [Proventil 2.5 mg/3 ml Neb] 1 vial NEB TID 01/31/24 [History] Potassium Chloride 7.5 ml PO BID 01/31/24 [History] Cholecalciferol (Vitamin D3) [Vitamin D] 1,000 unit PO UD 04/09/25 [History] Hx Tetanus, Diphtheria Vaccination/Date Given: Yes Hx Influenza Vaccination/Date Given: Yes Hx Pneumococcal Vaccination/Date Given: Yes Immunizations Up to Date: Yes Travel Risk - International Travel Have you traveled outside of the country in past 3 weeks: No - Emerging Infectious Disease Are you exhibiting symptoms associated with any current EIDs: No Symptoms: Shortness of Breath - Past Medical History Pertinent Past Medical History: Yes Neurological History: Alzheimer's Disease, Dementia, Peripheral Neuropathy, Stroke ENT History: Cataracts Cardiac History: Hypertension Respiratory History: CHF, COPD, Sleep Apnea, Other Endocrine Medical History: Diabetes Type II Musculoskeletal History: Arthritis GI Medical History: Diverticulitis, Irritable Bowel History: No Pertinent History, Renal Disease Psycho-Social History: No Pertinent History Female Reproductive Disorders: No Pertinent History, Other Other Medical History: pt family states pt noncompliant with cpap, ovarian cysts. THICKENED LIQUIDS BY MOUTH - Past Surgical History Past Surgical History: Yes Neuro Surgical History: No Pertinent History Cardiac: No Pertinent History, Internal Defibrillator, Pacemaker Respiratory: No Pertinent History Gastrointestinal: No Pertinent History Genitourinary: Other Musculoskeletal: No Pertinent History Female Surgical History: Tubal Ligation Other Surgical History: ear surgery, cataract surgery, bladder tuck,lasik surgery. Kidney removed Significant Family History: no pertinent family hx - Social History Smoking Status: Former smoker Exposure to second hand smoke: No Drug Use: none - Social Determinants of Health Will the patient participate in the screening: Yes Do you worry about a steady place to live?: No In the past 12 months,have you had to go without utilities?: No Transportation Issues: No Has anyone in your support network made you feel unsafe?: No Have you or anyone in your house had to go w/o enough food: No - Nursing Vital Signs Nursing Vital Signs: Initial Vital Signs Temperature 97.2 F 04/09/25 16:47 Pulse Rate 68 04/09/25 16:47 Respiratory Rate 16 04/09/25 16:47 Blood Pressure 138/98 04/09/25 16:47 O2 Sat by Pulse Oximetry 95 04/09/25 16:47 Pain Scale Pain Intensity 0 - Physical Exam Gastrointestinal/Abdomen Exam: soft Neurologic Exam: community recreation coordinator II-XII nml as tested, disoriented SpO2 Interpretation: normal SpO2: 100 - Course EKG Interpreted by Me: RATE (76), Sinus Rhythm, NORMAL AXIS, NORMAL INTERVALS, NORMAL QRS - Radiology Exams Chest X-ray Interpretation: Interpreted by me, Nml Mediastinum, Nml Soft Tissues, Other (LLL atelectasis) - CT Exams Abdomen/Pelvis CT Interpretation: Other (ileus, AAA unchanged, large amount of stool in rectum, interpreted by me) Ordered Tests: Active Orders 24 hr Category Date Time Status Bedrest TOLERATED Activity 04/09/25 21:24 Active Admit as Inpatient ROUTINE Care 04/09/25 21:18 Active EKG-ER Only STAT Care 04/09/25 22:53 Active Lea [Catheter-[place] Lea] STAT Care 04/09/25 18:17 Active Gastric Tube Insertion STAT Care 04/09/25 21:47 Active IV Insertion STAT Care 04/09/25 17:21 Active Intake and Output q4h Care 04/09/25 21:23 Active Pulse Oximetry (ED) STAT Care 04/09/25 17:21 Active NPO Diet 04/09/25 21:24 Active ABDOMEN AND PELVIS W/0 CONTRAS [CT] Stat Exams 04/09/25 18:41 Taken CHEST 1 VIEW (PORTABLE) Stat Exams 04/09/25 19:27 Taken CHEST 1 VIEW (PORTABLE) Stat Exams 04/09/25 22:35 Taken AMYLASE Stat Lab 04/09/25 17:50 Completed BLOOD CULTURE Stat Lab 04/09/25 Ordered BLOOD CULTURE Stat Lab 04/09/25 18:22 Received CBC AM.LAB Lab 04/10/25 04:00 Ordered CBC W DIFF Stat Lab 04/09/25 17:50 Completed CMP AM.LAB Lab 04/10/25 04:00 Ordered CMP Stat Lab 04/09/25 17:50 Completed CULTURE,URINE Stat Lab 04/09/25 18:12 Received LIPASE Stat Lab 04/09/25 17:50 Completed Lactic Acid Stat Lab 04/09/25 17:36 Completed MAGNESIUM Stat Lab 04/09/25 17:50 Completed MONO SCREEN Stat Lab 04/09/25 17:50 Completed NT PRO BNPII AM.LAB Lab 04/10/25 04:00 Ordered NT PRO BNPII Stat Lab 04/09/25 17:50 Completed PROCALCITONIN Stat Lab 04/09/25 17:50 Completed TROPONIN Q4H Lab 04/09/25 17:50 Completed TROPONIN Q4H Lab 04/09/25 21:50 Completed TROPONIN Q4H Lab 04/10/25 01:45 Ordered UA W/RFX UR CULTURE Stat Lab 04/09/25 18:12 Completed Medication Summary Generic Name Dose Route Start Last Admin Trade Name Freq PRN Reason Stop Dose Admin Dextrose/Sodium Chloride 1,000 mls @ 100 mls/hr 04/09/25 21:30 04/09/25 22:07 Dextrose 5% -0.45 Nacl 1000 Ml IV 05/09/25 21:29 100 mls/hr .Q10H ROSARIO Administration Discontinued Medications Generic Name Dose Route Start Last Admin Trade Name Freq PRN Reason Stop Dose Admin Sodium Chloride 1,000 mls @ 999 mls/hr 04/09/25 17:36 04/09/25 19:00 Sodium Chloride 0.9% 1000 Ml IV 04/09/25 18:36 Infused .Q1H1M STA Infusion Sodium Chloride Confirm 04/09/25 17:43 Sodium Chloride 0.9% 1000 Ml Administered 04/09/25 17:44 Dose 1,000 mls @ ud .ROUTE .STK-MED ONE Ceftriaxone Sodium 1 gm in 100 mls @ 200 mls/hr 04/09/25 21:06 04/09/25 22:00 Rocephin 1 Gm / 100 Ml Nacl IV 04/09/25 21:35 Infused STAT ONE Infusion Ceftriaxone Sodium Confirm 04/09/25 21:16 Rocephin 1 Gm / 100 Ml Nacl Administered 04/09/25 21:17 Dose 1 gm in 100 mls @ ud IV .STK-MED ONE Morphine Sulfate 2 mg 04/09/25 18:48 04/09/25 19:14 Morphine Sulfate 2 Mg/Ml Inj IV 04/09/25 18:49 2 mg STAT ONE Administration Morphine Sulfate Confirm 04/09/25 19:13 Morphine Sulfate 2 Mg/Ml Inj Administered 04/09/25 19:14 Dose 2 mg .ROUTE .STK-MED ONE Ondansetron HCl 4 mg 04/09/25 17:36 04/09/25 17:56 Ondansetron Hcl 4 Mg/2 Ml Vial IV 04/09/25 17:37 4 mg STAT ONE Administration Ondansetron HCl Confirm 04/09/25 17:43 Ondansetron Hcl 4 Mg/2 Ml Vial Administered 04/09/25 17:44 Dose 4 mg .ROUTE .STK-MED ONE Pantoprazole Sodium 40 mg 04/09/25 17:36 04/09/25 17:58 Pantoprazole 40 Mg Vial IV 04/09/25 17:37 40 mg STAT ONE Administration Pantoprazole Sodium Confirm 04/09/25 17:43 Pantoprazole 40 Mg Vial Administered 04/09/25 17:44 Dose 40 mg IV .STK-MED ONE Lab/Rad Data: Laboratory Result Diagrams 04/09/25 17:50 04/09/25 17:50 Laboratory Results 04/09/25 04/09/25 04/09/25 Range/Units 21:50 18:18 18:12 WBC (3.98-10.04) x10^3/uL RBC (3.93-5.22) x10^6/uL Hgb (11.2-15.7) g/dL Hct (34.1-44.9) % MCV (79.4-94.8) fL MCH (25.6-32.2) pg MCHC (32.2-35.5) g/dL RDW (11.7-14.4) % Plt Count (182-369) x10^3/uL MPV (9.4-12.3) fL Gran % (34.0-71.1) % Immature Gran % (Auto) (0.001-0.429) % Nucleat RBC Rel Count (0.00-0.2) % Eos # (Auto) (0.04-0.36) x10^3/uL Immature Gran # (Auto) (0.001-0.031) x10^3u/L Absolute Lymphs (auto) (1.18-3.74) x10^3/uL Absolute Monos (auto) (0.24-0.86) x10^3/uL Absolute Nucleated RBC (0.00-0.012) x10^3u/L Lymphocytes % (19.3-51.7) % Monocytes % (4.7-12.5) % Eosinophils % (0.7-5.8) % Basophils % (0.1-1.2) % Absolute Granulocytes (1.56-6.13) x10^3/uL Basophils # (0.01-0.08) x10^3/uL Sodium (135-145) mmol/L Potassium (3.5-5.1) mmol/L Chloride (98-107) mmol/L Carbon Dioxide (22-30) mmol/L Anion Gap (5-15) MEQ/L BUN (7-17) mg/dL Creatinine (0.52-1.04) mg/dL Estimated GFR ML/MIN Glucose (74-106) mg/dL Lactic Acid (0.4-2.0) Calcium (8.4-10.2) mg/dL Magnesium (1.6-2.3) mg/dL Total Bilirubin (0.2-1.3) mg/dL AST (14-36) U/L ALT (0-35) U/L Alkaline Phosphatase (38-126) U/L Troponin I 0.050 H* (0.000-0.033) ng/mL NT-Pro-B Natriuret Pep (<300) pg/mL Serum Total Protein (6.3-8.2) g/dL Albumin (3.5-5.0) g/dL Amylase (30-110) U/L Lipase (23-300) U/L Procalcitonin (0.030-0.080) ng/mL Urine Color Yellow (Yellow) Urine Appearance Cloudy A (Clear) Urine pH 6.5 (4.6-8.0) Ur Specific Corona 1.020 (1.005-1.030) Urine Protein 30 (Negative) Urine Glucose (UA) Negative (Negative) mg/dL Urine Ketones Trace A (Negative) Urine Blood Negative (Negative) Urine Nitrite Negative (Negative) Urine Bilirubin Negative (Negative) Urine Urobilinogen 1.0 A (0.2) mg/dL Ur Leukocyte Esterase Large A (Negative) U Hyaline Cast (Auto) 20-50 (0-2) /LPF Urine Microscopic RBC 0-2 (0-5) /HPF Urine Microscopic WBC >100 A (0-5) /HPF Ur Epithelial Cells Rare (None Seen) /HPF Urine Bacteria Many A (None Seen) /HPF Urine Culture Reflexed YES (NO) Monoscreen (NEGATIVE) Influenza Type A Ag NEGATIVE (NEGATIVE) Influenza Type B Ag NEGATIVE (NEGATIVE) RSV (PCR) NEGATIVE (NEGATIVE) SARS-CoV-2 (PCR) NEGATIVE (NEGATIVE) Slides for Path Review 04/09/25 04/09/25 04/09/25 Range/Units 17:50 17:50 17:50 WBC (3.98-10.04) x10^3/uL RBC (3.93-5.22) x10^6/uL Hgb (11.2-15.7) g/dL Hct (34.1-44.9) % MCV (79.4-94.8) fL MCH (25.6-32.2) pg MCHC (32.2-35.5) g/dL RDW (11.7-14.4) % Plt Count (182-369) x10^3/uL MPV (9.4-12.3) fL Gran % (34.0-71.1) % Immature Gran % (Auto) (0.001-0.429) % Nucleat RBC Rel Count (0.00-0.2) % Eos # (Auto) (0.04-0.36) x10^3/uL Immature Gran # (Auto) (0.001-0.031) x10^3u/L Absolute Lymphs (auto) (1.18-3.74) x10^3/uL Absolute Monos (auto) (0.24-0.86) x10^3/uL Absolute Nucleated RBC (0.00-0.012) x10^3u/L Lymphocytes % (19.3-51.7) % Monocytes % (4.7-12.5) % Eosinophils % (0.7-5.8) % Basophils % (0.1-1.2) % Absolute Granulocytes (1.56-6.13) x10^3/uL Basophils # (0.01-0.08) x10^3/uL Sodium (135-145) mmol/L Potassium (3.5-5.1) mmol/L Chloride (98-107) mmol/L Carbon Dioxide (22-30) mmol/L Anion Gap (5-15) MEQ/L BUN (7-17) mg/dL Creatinine (0.52-1.04) mg/dL Estimated GFR ML/MIN Glucose (74-106) mg/dL Lactic Acid (0.4-2.0) Calcium (8.4-10.2) mg/dL Magnesium (1.6-2.3) mg/dL Total Bilirubin (0.2-1.3) mg/dL AST (14-36) U/L ALT (0-35) U/L Alkaline Phosphatase (38-126) U/L Troponin I 0.040 H* (0.000-0.033) ng/mL NT-Pro-B Natriuret Pep 2600 (<300) pg/mL Serum Total Protein (6.3-8.2) g/dL Albumin (3.5-5.0) g/dL Amylase (30-110) U/L Lipase (23-300) U/L Procalcitonin 0.244 H (0.030-0.080) ng/mL Urine Color (Yellow) Urine Appearance (Clear) Urine pH (4.6-8.0) Ur Specific Corona (1.005-1.030) Urine Protein (Negative) Urine Glucose (UA) (Negative) mg/dL Urine Ketones (Negative) Urine Blood (Negative) Urine Nitrite (Negative) Urine Bilirubin (Negative) Urine Urobilinogen (0.2) mg/dL Ur Leukocyte Esterase (Negative) U Hyaline Cast (Auto) (0-2) /LPF Urine Microscopic RBC (0-5) /HPF Urine Microscopic WBC (0-5) /HPF Ur Epithelial Cells (None Seen) /HPF Urine Bacteria (None Seen) /HPF Urine Culture Reflexed (NO) Monoscreen NEGATIVE (NEGATIVE) Influenza Type A Ag (NEGATIVE) Influenza Type B Ag (NEGATIVE) RSV (PCR) (NEGATIVE) SARS-CoV-2 (PCR) (NEGATIVE) Slides for Path Review 04/09/25 04/09/25 04/09/25 Range/Units 17:50 17:50 17:36 WBC 22.4 H (3.98-10.04) x10^3/uL RBC 4.74 (3.93-5.22) x10^6/uL Hgb 12.9 (11.2-15.7) g/dL Hct 42.0 (34.1-44.9) % MCV 88.6 (79.4-94.8) fL MCH 27.2 (25.6-32.2) pg MCHC 30.7 L (32.2-35.5) g/dL RDW 18.2 H (11.7-14.4) % Plt Count 336 (182-369) x10^3/uL MPV 9.7 (9.4-12.3) fL Gran % 85.2 H (34.0-71.1) % Immature Gran % (Auto) 0.5 H (0.001-0.429) % Nucleat RBC Rel Count 0.0 (0.00-0.2) % Eos # (Auto) 0 L (0.04-0.36) x10^3/uL Immature Gran # (Auto) 0.12 H (0.001-0.031) x10^3u/L Absolute Lymphs (auto) 1.53 (1.18-3.74) x10^3/uL Absolute Monos (auto) 1.56 H (0.24-0.86) x10^3/uL Absolute Nucleated RBC 0.00 (0.00-0.012) x10^3u/L Lymphocytes % 6.8 L (19.3-51.7) % Monocytes % 7.0 (4.7-12.5) % Eosinophils % 0.0 L (0.7-5.8) % Basophils % 0.5 (0.1-1.2) % Absolute Granulocytes 19.05 H (1.56-6.13) x10^3/uL Basophils # 0.11 H (0.01-0.08) x10^3/uL Sodium 143 (135-145) mmol/L Potassium 4.6 (3.5-5.1) mmol/L Chloride 100 (98-107) mmol/L Carbon Dioxide 32 H (22-30) mmol/L Anion Gap 15.8 H (5-15) MEQ/L BUN 50 H (7-17) mg/dL Creatinine 3.01 H (0.52-1.04) mg/dL Estimated GFR 14.6 ML/MIN Glucose 173 H (74-106) mg/dL Lactic Acid 1.2 (0.4-2.0) Calcium 10.0 (8.4-10.2) mg/dL Magnesium 2.6 H (1.6-2.3) mg/dL Total Bilirubin 0.40 (0.2-1.3) mg/dL AST 33 (14-36) U/L ALT 23 (0-35) U/L Alkaline Phosphatase 115 (38-126) U/L Troponin I (0.000-0.033) ng/mL NT-Pro-B Natriuret Pep (<300) pg/mL Serum Total Protein 9.3 H (6.3-8.2) g/dL Albumin 4.7 (3.5-5.0) g/dL Amylase 76 (30-110) U/L Lipase 41 (23-300) U/L Procalcitonin (0.030-0.080) ng/mL Urine Color (Yellow) Urine Appearance (Clear) Urine pH (4.6-8.0) Ur Specific Corona (1.005-1.030) Urine Protein (Negative) Urine Glucose (UA) (Negative) mg/dL Urine Ketones (Negative) Urine Blood (Negative) Urine Nitrite (Negative) Urine Bilirubin (Negative) Urine Urobilinogen (0.2) mg/dL Ur Leukocyte Esterase (Negative) U Hyaline Cast (Auto) (0-2) /LPF Urine Microscopic RBC (0-5) /HPF Urine Microscopic WBC (0-5) /HPF Ur Epithelial Cells (None Seen) /HPF Urine Bacteria (None Seen) /HPF Urine Culture Reflexed (NO) Monoscreen (NEGATIVE) Influenza Type A Ag (NEGATIVE) Influenza Type B Ag (NEGATIVE) RSV (PCR) (NEGATIVE) SARS-CoV-2 (PCR) (NEGATIVE) Slides for Path Review YES - Progress Progress Note: 04/09/25 21:[address] Emery, consult to Hospitalist, consult Gen Surgery, admit - Departure Departure Disposition: In-patient Admission Clinical Impression: Abdominal pain, Vomiting, Acute UTI, Ileus Condition: Fair Critical Care Time: No
[2025-04-09] MEDS: ROCEPHIN 1 GM / 100 ML NaCl 1 GM/100 ML IVPB IV ONE (21:18)
[2025-04-09] MEDS ORDERED: Dextrose 5% -0.45 NaCl 1000 ML 1,000 ML IV ONE (22:07)
[2025-04-09] MEDS: Dextrose 5% -0.45 NaCl 1000 ML 1,000 ML IV SCH (22:07)
--- NOTE | 2025-04-09 23:31 | PCM.HP ---
History of Present Illness - Chief Complaint Chief Complaint: uti, ileus, vomiting History of Present Illness: is a 85 year old female from home with past medical history of AAA, HFpEF, mild aortic stenosis, CKD (h/o nephrectomy), COPD, chronic hypoxic respiratory failure, hypertension, hyperlipidemia, GERD, type 2 diabetes mellitus, Alzheimer's dementia, bradycardia status post pacemaker, status post tubal ligation, IBS, CVA, peripheral neuropathy, and atrial fibrillation on ant icoagulation presented to the ED accompanied by daughter due to persistent vomiting for the past 2 days. Patient is unable to provide reliable history due to dementia. Patient's daughter did mention that patient was exhibiting abdominal distension. She had been unable to keep down fluids and solids for the past 2 days. Her last bowel movement was earlier in the ER. The patient does take stool softeners occasionally. Patient was hemodynamically stable in the ED. She was noted to have abdominal distention and abdominal tenderness. Urinalysis suggested UTI and the patient was started on ceftriaxone. Patient has significant leukocytosis. Troponin was mildly elevated. Patient was also noted to have worsening renal function compared to baseline. CT of the abdomen/pelvis showed findings concerning for ileus. The surgical team was consulted and will follow the patient with nonsurgical management at this time. NG tube placed in the ED and patient started on IV fluid hydration. - Review of Systems Constitutional: No Symptoms Eyes: No Symptoms Ears, Nose, & Throat: No Symptoms Respiratory: No Symptoms Cardiac: No Symptoms Abdominal/Gastrointestinal: Abdominal Pain, Nausea, Vomiting Genitourinary Symptoms: No Symptoms Musculoskeletal: No Symptoms Skin: No Symptoms Neurological: No Symptoms Psychological: No Symptoms Endocrine: No Symptoms Hematologic/Lymphatic: No Symptoms Immunological/Allergic: No Symptoms All Other Systems: Reviewed and Negative Medications & Allergies Home Medications: Home Medication List Amlodipine Besylate 5 mg [Norvasc 5 mg] 5 mg PO DAILY 02/08/18 [History Confirmed 04/09/25] Apixaban [Eliquis 5 mg Tablet] 2.5 mg PO BID 02/08/18 [History Confirmed 04/09/25] Atorvastatin Calcium 40 mg PO HS 02/08/18 [History Confirmed 04/09/25] Bumetanide 1 mg [Bumex 1 mg] 1 mg PO DAILY 02/08/18 [History Confirmed 04/09/25] Donepezil HCl [Aricept] 10 mg PO DAILY 02/08/18 [History Confirmed 04/09/25] Folic Acid 1 mg [Folate 1 mg] 1 mg PO DAILY 02/08/18 [History Confirmed 04/09/25] Losartan Potassium [Cozaar] 100 mg PO DAILY 02/08/18 [History Confirmed 04/09/25] Memantine HCl 5 mg PO QHS 02/08/18 [History Confirmed 04/09/25] PANTOPRAZOLE 40 mg Tablet [Protonix 40MG Tablet] 40 mg PO DAILY 02/08/18 [History Confirmed 04/09/25] OLANZapine [Olanzapine] 10 mg PO HS 02/27/19 [History Confirmed 04/09/25] Insulin Glargine,Hum.rec.anlog [Lantus] 20 unit SQ UD 04/19/19 [History Confirmed 04/09/25] Aspirin 81 gm Chew [Baby Aspirin 81 mg Chew] 81 mg PO DAILY 08/30/19 [History Confirmed 04/09/25] Escitalopram Oxalate [Lexapro] 10 mg PO DAILY 08/30/19 [History Confirmed 04/09/25] Insulin Lispro [Humalog] 10 unit SQ TID 08/31/19 [History Confirmed 04/09/25] Fluticasone/Umeclidin/Vilanter [Trelegy Ellipta 100-62.5-25] 1 puff IH DAILY 07/09/21 [History Confirmed 04/09/25] Albuterol 2.5 mg/3 ml Neb [Proventil 2.5 mg/3 ml Neb] 1 vial NEB TID 01/31/24 [History Confirmed 04/09/25] Potassium Chloride 7.5 ml PO BID 01/31/24 [History Confirmed 04/09/25] Cholecalciferol (Vitamin D3) [Vitamin D] 1,000 unit PO UD 04/09/25 [History Confirmed 04/09/25] Allergies/Adverse Reactions: Allergies Allergy/AdvReac Type Severity Reaction Status Date / Time carvedilol Allergy Verified 04/09/25 16:47 - Past Medical History Past Medical History: Yes Neurological History: Alzheimer's Disease, Dementia, Peripheral Neuropathy, Stroke ENT History: Cataracts Cardiac History: Hypertension Respiratory History: CHF, COPD, Sleep Apnea, Other Endocrine Medical History: Diabetes Type II Musculoskelatal History: Arthritis GI Medical History: Diverticulitis, Irritable Bowel History: No Pertinent History, Renal Disease Pyscho-Social History: No Pertinent History Reproductive Disorders: No Pertinent History, Other Comment: pt family states pt noncompliant with cpap, ovarian cysts. THICKENED LIQUIDS BY MOUTH - Past Surgical History Past Surgical History: Yes Neuro Surgical History: No Pertinent History Cardiac History: No Pertinent History, Internal Defibrillator, Pacemaker Respiratory Surgery: No Pertinent History GI Surgical History: No Pertinent History Genitourinary Surgical Hx: Other Musculskeletal Surgical Hx: No Pertinent History Female Surgical History: Tubal Ligation Other Surgical History: ear surgery, cataract surgery, bladder tuck,lasik surgery. Kidney removed Significant Family History: no pertinent family hx - Social History Smoking Status: Former smoker How long have you smoked: 50 Exposure to second hand smoke: No Alcohol: None Drug Use: none - Social Determinants of Health Will the patient participate in the screening: Yes Do you worry about a steady place to live?: No Do you have any problems with any of the following?: No known problems In the past 12 months,have you had to go without utilities?: No Have you or anyone in your house had to go without enough: No Transportation Issues: No Has anyone in your support network made you feel unsafe?: No Does the patient want assistance with any of the above?: No - Physical Exam Vital Signs: Vital Signs - 24 hr Temp Pulse Resp BP BP Pulse Ox 04/09/25 23:08 04/09/25 23:00 76 17 155/100 100 04/09/25 22:30 74 18 144/83 100 04/09/25 22:00 83 16 148/81 04/09/25 21:30 88 23 163/92 04/09/25 21:00 77 16 153/74 04/09/25 20:30 79 16 147/76 100 04/09/25 20:00 72 15 148/81 100 04/09/25 19:30 75 16 149/76 99 04/09/25 19:06 74 15 148/74 100 04/09/25 19:05 73 19 98 04/09/25 18:52 95 04/09/25 18:30 160/81 04/09/25 18:01 74 29 H 104/82 97 04/09/25 17:30 85 31 H 148/95 04/09/25 17:24 77 21 153/93 98 04/09/25 17:22 98 04/09/25 17:00 79 21 148/97 98 04/09/25 16:47 97.2 F 68 16 138/98 95 General Appearance: no apparent distress Neurologic Exam: alert, cooperative, normal mood/affect Eye Exam: PERRL/EOMI, eyes nml inspection Ears, Nose, Throat Exam: dry mucous membranes Neck Exam: normal inspection, non-tender, supple Respiratory Exam: normal breath sounds, lungs clear Cardiovascular Exam: regular rate/rhythm, normal heart sounds Gastrointestinal/Abdomen Exam: tenderness, distention Extremity Exam: normal inspection Skin Exam: normal color Results - Labs Lab/Micro Results: Lab Results-Last 24 Hours 04/09/25 04/09/25 04/09/25 Range/Units 17:36 17:50 17:50 WBC 22.4 H (3.98-10.04) x10^3/uL RBC 4.74 (3.93-5.22) x10^6/uL Hgb 12.9 (11.2-15.7) g/dL Hct 42.0 (34.1-44.9) % MCV 88.6 (79.4-94.8) fL MCH 27.2 (25.6-32.2) pg MCHC 30.7 L (32.2-35.5) g/dL RDW 18.2 H (11.7-14.4) % Plt Count 336 (182-369) x10^3/uL MPV 9.7 (9.4-12.3) fL Gran % 85.2 H (34.0-71.1) % Immature Gran % (Auto) 0.5 H (0.001-0.429) % Nucleat RBC Rel Count 0.0 (0.00-0.2) % Eos # (Auto) 0 L (0.04-0.36) x10^3/uL Immature Gran # (Auto) 0.12 H (0.001-0.031) x10^3u/L Absolute Lymphs (auto) 1.53 (1.18-3.74) x10^3/uL Absolute Monos (auto) 1.56 H (0.24-0.86) x10^3/uL Absolute Nucleated RBC 0.00 (0.00-0.012) x10^3u/L Lymphocytes % 6.8 L (19.3-51.7) % Monocytes % 7.0 (4.7-12.5) % Eosinophils % 0.0 L (0.7-5.8) % Basophils % 0.5 (0.1-1.2) % Absolute Granulocytes 19.05 H (1.56-6.13) x10^3/uL Basophils # 0.11 H (0.01-0.08) x10^3/uL Sodium 143 (135-145) mmol/L Potassium 4.6 (3.5-5.1) mmol/L Chloride 100 (98-107) mmol/L Carbon Dioxide 32 H (22-30) mmol/L Anion Gap 15.8 H (5-15) MEQ/L BUN 50 H (7-17) mg/dL Creatinine 3.01 H (0.52-1.04) mg/dL Estimated GFR 14.6 ML/MIN Glucose 173 H (74-106) mg/dL Lactic Acid 1.2 (0.4-2.0) Calcium 10.0 (8.4-10.2) mg/dL Magnesium 2.6 H (1.6-2.3) mg/dL Total Bilirubin 0.40 (0.2-1.3) mg/dL AST 33 (14-36) U/L ALT 23 (0-35) U/L Alkaline Phosphatase 115 (38-126) U/L Troponin I (0.000-0.033) ng/mL NT-Pro-B Natriuret Pep (<300) pg/mL Serum Total Protein 9.3 H (6.3-8.2) g/dL Albumin 4.7 (3.5-5.0) g/dL Amylase 76 (30-110) U/L Lipase 41 (23-300) U/L Procalcitonin (0.030-0.080) ng/mL Urine Color (Yellow) Urine Appearance (Clear) Urine pH (4.6-8.0) Ur Specific [place] (1.005-1.030) Urine Protein (Negative) Urine Glucose (UA) (Negative) mg/dL Urine Ketones (Negative) Urine Blood (Negative) Urine Nitrite (Negative) Urine Bilirubin (Negative) Urine Urobilinogen (0.2) mg/dL Ur Leukocyte Esterase (Negative) U Hyaline Cast (Auto) (0-2) /LPF Urine Microscopic RBC (0-5) /HPF Urine Microscopic WBC (0-5) /HPF Ur Epithelial Cells (None Seen) /HPF Urine Bacteria (None Seen) /HPF Urine Culture Reflexed (NO) Monoscreen (NEGATIVE) Influenza Type A Ag (NEGATIVE) Influenza Type B Ag (NEGATIVE) RSV (PCR) (NEGATIVE) SARS-CoV-2 (PCR) (NEGATIVE) Slides for Path Review YES 04/09/25 04/09/25 04/09/25 Range/Units 17:50 17:50 17:50 WBC (3.98-10.04) x10^3/uL RBC (3.93-5.22) x10^6/uL Hgb (11.2-15.7) g/dL Hct (34.1-44.9) % MCV (79.4-94.8) fL MCH (25.6-32.2) pg MCHC (32.2-35.5) g/dL RDW (11.7-14.4) % Plt Count (182-369) x10^3/uL MPV (9.4-12.3) fL Gran % (34.0-71.1) % Immature Gran % (Auto) (0.001-0.429) % Nucleat RBC Rel Count (0.00-0.2) % Eos # (Auto) (0.04-0.36) x10^3/uL Immature Gran # (Auto) (0.001-0.031) x10^3u/L Absolute Lymphs (auto) (1.18-3.74) x10^3/uL Absolute Monos (auto) (0.24-0.86) x10^3/uL Absolute Nucleated RBC (0.00-0.012) x10^3u/L Lymphocytes % (19.3-51.7) % Monocytes % (4.7-12.5) % Eosinophils % (0.7-5.8) % Basophils % (0.1-1.2) % Absolute Granulocytes (1.56-6.13) x10^3/uL Basophils # (0.01-0.08) x10^3/uL Sodium (135-145) mmol/L Potassium (3.5-5.1) mmol/L Chloride (98-107) mmol/L Carbon Dioxide (22-30) mmol/L Anion Gap (5-15) MEQ/L BUN (7-17) mg/dL Creatinine (0.52-1.04) mg/dL Estimated GFR ML/MIN Glucose (74-106) mg/dL Lactic Acid (0.4-2.0) Calcium (8.4-10.2) mg/dL Magnesium (1.6-2.3) mg/dL Total Bilirubin (0.2-1.3) mg/dL AST (14-36) U/L ALT (0-35) U/L Alkaline Phosphatase (38-126) U/L Troponin I 0.040 H* (0.000-0.033) ng/mL NT-Pro-B Natriuret Pep 2600 (<300) pg/mL Serum Total Protein (6.3-8.2) g/dL Albumin (3.5-5.0) g/dL Amylase (30-110) U/L Lipase (23-300) U/L Procalcitonin 0.244 H (0.030-0.080) ng/mL Urine Color (Yellow) Urine Appearance (Clear) Urine pH (4.6-8.0) Ur Specific [place] (1.005-1.030) Urine Protein (Negative) Urine Glucose (UA) (Negative) mg/dL Urine Ketones (Negative) Urine Blood (Negative) Urine Nitrite (Negative) Urine Bilirubin (Negative) Urine Urobilinogen (0.2) mg/dL Ur Leukocyte Esterase (Negative) U Hyaline Cast (Auto) (0-2) /LPF Urine Microscopic RBC (0-5) /HPF Urine Microscopic WBC (0-5) /HPF Ur Epithelial Cells (None Seen) /HPF Urine Bacteria (None Seen) /HPF Urine Culture Reflexed (NO) Monoscreen NEGATIVE (NEGATIVE) Influenza Type A Ag (NEGATIVE) Influenza Type B Ag (NEGATIVE) RSV (PCR) (NEGATIVE) SARS-CoV-2 (PCR) (NEGATIVE) Slides for Path Review 04/09/25 04/09/25 04/09/25 Range/Units 18:12 18:18 21:50 WBC (3.98-10.04) x10^3/uL RBC (3.93-5.22) x10^6/uL Hgb (11.2-15.7) g/dL Hct (34.1-44.9) % MCV (79.4-94.8) fL MCH (25.6-32.2) pg MCHC (32.2-35.5) g/dL RDW (11.7-14.4) % Plt Count (182-369) x10^3/uL MPV (9.4-12.3) fL Gran % (34.0-71.1) % Immature Gran % (Auto) (0.001-0.429) % Nucleat RBC Rel Count (0.00-0.2) % Eos # (Auto) (0.04-0.36) x10^3/uL Immature Gran # (Auto) (0.001-0.031) x10^3u/L Absolute Lymphs (auto) (1.18-3.74) x10^3/uL Absolute Monos (auto) (0.24-0.86) x10^3/uL Absolute Nucleated RBC (0.00-0.012) x10^3u/L Lymphocytes % (19.3-51.7) % Monocytes % (4.7-12.5) % Eosinophils % (0.7-5.8) % Basophils % (0.1-1.2) % Absolute Granulocytes (1.56-6.13) x10^3/uL Basophils # (0.01-0.08) x10^3/uL Sodium (135-145) mmol/L Potassium (3.5-5.1) mmol/L Chloride (98-107) mmol/L Carbon Dioxide (22-30) mmol/L Anion Gap (5-15) MEQ/L BUN (7-17) mg/dL Creatinine (0.52-1.04) mg/dL Estimated GFR ML/MIN Glucose (74-106) mg/dL Lactic Acid (0.4-2.0) Calcium (8.4-10.2) mg/dL Magnesium (1.6-2.3) mg/dL Total Bilirubin (0.2-1.3) mg/dL AST (14-36) U/L ALT (0-35) U/L Alkaline Phosphatase (38-126) U/L Troponin I 0.050 H* (0.000-0.033) ng/mL NT-Pro-B Natriuret Pep (<300) pg/mL Serum Total Protein (6.3-8.2) g/dL Albumin (3.5-5.0) g/dL Amylase (30-110) U/L Lipase (23-300) U/L Procalcitonin (0.030-0.080) ng/mL Urine Color Yellow (Yellow) Urine Appearance Cloudy A (Clear) Urine pH 6.5 (4.6-8.0) Ur Specific [place] 1.020 (1.005-1.030) Urine Protein 30 (Negative) Urine Glucose (UA) Negative (Negative) mg/dL Urine Ketones Trace A (Negative) Urine Blood Negative (Negative) Urine Nitrite Negative (Negative) Urine Bilirubin Negative (Negative) Urine Urobilinogen 1.0 A (0.2) mg/dL Ur Leukocyte Esterase Large A (Negative) U Hyaline Cast (Auto) 20-50 (0-2) /LPF Urine Microscopic RBC 0-2 (0-5) /HPF Urine Microscopic WBC >100 A (0-5) /HPF Ur Epithelial Cells Rare (None Seen) /HPF Urine Bacteria Many A (None Seen) /HPF Urine Culture Reflexed YES (NO) Monoscreen (NEGATIVE) Influenza Type A Ag NEGATIVE (NEGATIVE) Influenza Type B Ag NEGATIVE (NEGATIVE) RSV (PCR) NEGATIVE (NEGATIVE) SARS-CoV-2 (PCR) NEGATIVE (NEGATIVE) Slides for Path Review - Radiology Impressions Radiology Exams & Impressions: Radiology Procedures Category Date Time Status ABDOMEN AND PELVIS W/0 CONTRAS [CT] Stat Exams 04/09/25 18:41 Taken CHEST 1 VIEW (PORTABLE) Stat Exams 04/09/25 19:27 Taken CHEST 1 VIEW (PORTABLE) Stat Exams 04/09/25 22:35 Taken Assessment/Plan (1) Ileus Current Visit: Yes Status: Acute Assessment & Plan: Bowel rest NG tube placed IV fluids Pain control Anti-emetic General surgery consulted Code(s): K56.7 - ILEUS, UNSPECIFIED (2) Acute kidney injury superimposed on chronic kidney disease Current Visit: Yes Status: Acute Assessment & Plan: Monitor renal function, monitor I&Os, continue IV fluids, avoid nephrotoxic medications Code(s): N17.9 - ACUTE KIDNEY FAILURE, UNSPECIFIED; N18.9 - CHRONIC KIDNEY DISEASE, UNSPECIFIED (3) Acute UTI Current Visit: Yes Status: Acute Assessment & Plan: Continue ceftriaxone Follow-up urine culture Code(s): N39.0 - URINARY TRACT INFECTION, SITE NOT SPECIFIED (4) Abdominal pain Current Visit: Yes Status: Acute Code(s): R10.9 - UNSPECIFIED ABDOMINAL PAIN (5) Elevated troponin Current Visit: Yes Status: Acute Assessment & Plan: No active symptoms/complaints Monitor on telemetry, trend troponin Code(s): R77.8 - OTHER SPECIFIED ABNORMALITIES OF PLASMA PROTEINS (6) Leucocytosis Current Visit: Yes Status: Acute Qualifiers: Leukocytosis type: unspecified Qualified Code(s): D72.829 - Elevated white blood cell count, unspecified Assessment & Plan: Monitor CBC Continue ceftriaxone for UTI Code(s): D72.829 - ELEVATED WHITE BLOOD CELL COUNT, UNSPECIFIED (7) Vomiting Current Visit: Yes Status: Acute Qualifiers: Migraine intractability: intractable Assessment & Plan: Anti-emetic PRN Bowel rest IV fluids Code(s): R11.10 - VOMITING, UNSPECIFIED (8) Chronic hypoxemic respiratory failure Current Visit: Yes Status: Chronic Assessment & Plan: Continue home O2 (9) Alzheimer's dementia with behavioral disturbance Current Visit: Yes Status: Chronic Assessment & Plan: Continue home medications Code(s): G30.9 - ALZHEIMER'S DISEASE, UNSPECIFIED; F02.81 - DEM IN OTHER DIS CLASSD ELSWHR, UNSP SEV, WIT * DO NOT USE * (10) Atrial fibrillation Current Visit: Yes Status: Chronic Qualifiers: Atrial fibrillation type: paroxysmal Qualified Code(s): I48.0 - Paroxysmal atrial fibrillation Assessment & Plan: Rate controlled, continue anticoagulation with Eliquis Code(s): I48.91 - UNSPECIFIED ATRIAL FIBRILLATION (11) CHF (congestive heart failure) Current Visit: Yes Status: Chronic Qualifiers: Heart failure type: combined systolic and diastolic Heart failure chronicity: chronic Qualified Code(s): I50.42 - Chronic combined systolic (congestive) and diastolic (congestive) heart failure Assessment & Plan: HFpEF Hold Bumex and losartan due to ELYSE Not on BB due COPD per previous records Code(s): I50.9 - HEART FAILURE, UNSPECIFIED (12) COPD (chronic obstructive pulmonary disease) Current Visit: Yes Status: Chronic Qualifiers: Assessment & Plan: Without exacerbation Continue home O2 Duonebs PRN (13) Dementia in Alzheimer's disease Current Visit: Yes Status: Chronic Code(s): G30.9 - ALZHEIMER'S DISEASE, UNSPECIFIED; F02.80 - DEM IN OTH DIS CLASSD ELSWHR,UNSP SEV,W/O BEH/PSYCH/MOOD/ANX (14) Depression with anxiety Current Visit: Yes Status: Chronic Assessment & Plan: Continue home meds Code(s): F41.8 - OTHER SPECIFIED ANXIETY DISORDERS (15) Essential hypertension Current Visit: Yes Status: Chronic Assessment & Plan: BP stable Continue amlodipine, holding losartan for now Code(s): I10 - ESSENTIAL (PRIMARY) HYPERTENSION (16) GERD (gastroesophageal reflux disease) Current Visit: Yes Status: Chronic Qualifiers: Esophagitis presence: esophagitis presence not specified Qualified Code(s): K21.9 - Gastro-esophageal reflux disease without esophagitis Assessment & Plan: IV PPI Code(s): K21.9 - GASTRO-ESOPHAGEAL REFLUX DISEASE WITHOUT ESOPHAGITIS (17) Type II diabetes mellitus Current Visit: Yes Status: Chronic Qualifiers: Diabetes mellitus oysterman insulin use: with fpc use Diabetes mellitus complication status: with neurologic complications Diabetes mellitus complication detail: with polyneuropathy Qualified Code(s): E11.42 - Type 2 diabetes mellitus with diabetic polyneuropathy; Z79.4 - buttermaker (current) use of insulin Assessment & Plan: Decrease basal insulin to 10 units while NPO ISS with accuchecks DVT Prophylaxis - Continue Eliquis Full Code Plan of care discussed with patient, daughter, and RN Total time in care of patient was 80 minutes Telemedicine Encounter - Telemedicine Encounter Telemedicine Encounter: "The entirety of this encounter was performed via Telemedicine" This visit was performed using real-time audio and video connection between my location and thepatients locationwith the assistance of a surrogateat the patients location. Written or verbal consent was obtained from the patient/guardian to perform this visit [facility] technology. Any patient questions regarding the telemedicine interaction were answered.
[2025-04-10] MEDS ORDERED: FEVERALL 650 MG PR PRN (00:10)
[2025-04-10] MEDS ORDERED: DUONEB 0.5-3 MG/3 ml Neb IH PRN (00:15)
[2025-04-10] MEDS ORDERED: Lantus Insulin SQ SCH (00:30)
[2025-04-10] MEDS: PROTONIX 40 MG IV IV SCH ×2 (02:25→09:39)
[2025-04-10 05:14] LABS: Hematocrit 38.4 % (34.1-44.9); Hemoglobin 11.4 g/dL (11.2-15.7); Mean Corpuscular Hemoglobin 26.5 pg (25.6-32.2); Mean Corpuscular Hgb Concent. 29.7 g/dL (32.2-35.5); Platelet Count 281 x10^3/uL (182-369); Red Blood Count 4.30 x10^6/uL (3.93-5.22); White Blood Count 15.0 x10^3/uL (3.98-10.04)
--- NOTE | 2025-04-10 05:18 | PCM.NOTE ---
Date and Time: 04/10/25 0513 Subjective Assessment: Ms. Plaza is an 85-year-old woman with a complex past medical history including abdominal aortic aneurysm, HFpEF, mild aortic stenosis, CKD status post nephrectomy, COPD with chronic hypoxemic respiratory failure, hypertension, hyperlipidemia, GERD, type 2 diabetes mellitus with neuropathy, Alzheimers d ementia, bradycardia with pacemaker, IBS, prior CVA, peripheral neuropathy, and atrial fibrillation on anticoagulation. She presented from home with her daughter due to two days of persistent vomiting and abdominal distension. Because of her advanced dementia, she was unable to provide reliable history, and her daughter reported that she had not tolerated fluids or solids for two days. She had a bowel movement earlier in the ED. On arrival, she was hemodynamically stable but noted to have significant abdominal distension and tenderness. Laboratory studies revealed marked leukocytosis (WBC 22.4), metabolic derangements with CO2 32 and anion gap 15.8, and worsening renal function compared to baseline (BUN 50, creatinine 3.01; baseline 1.7), consistent with acute kidney injury superimposed on CKD. Magnesium was elevated at 2.6. BNP was elevated at 2600, consistent with her known heart failure, but without clinical signs of acute decompensation. Cardiac biomarkers showed mild troponin elevation (0.040 - 0.050), without chest pain or ischemic EKG changes (NSR, normal intervals and QRS). Serum total protein was 9.3, and procalcitonin 0.244. Urinalysis was suspicious for infection, and c eftriaxone was initiated empirically. CXR showing bibasilar infiltrates/atelectasis with borderline cardiomegaly. CT abdomen/pelvis demonstrated findings abnormal fluid distended stomach and small bowel loops with fluid leveling favoring small bowel obstruction. Transition point right mid abdomen. No free fluid/air. New rectal fecal impaction. Again endobronchial opacities in right lower lobe with postobstructive atelectasis. Rule out aspiration. Chronic findings including borderline cardiomegaly, extensive arteriosclerotic disease with AAA, left nephrectomy, right renal cyst, chronic bony findings, and Lea catheter in Situ General surgery was consulted and recommended nonsurgical management. An NG tube was placed in the ED with decompression, IV fluid hydration was started, and antiemetics provided. 04/10/25: Met with patient bedside. Endoreses some improvment but remains nauseous. ED did report patient had BM yesterday. Plan for continued conservative treatment pending surgery recommendations. - Review of Systems Constitutional: No Symptoms Eyes: No Symptoms Ears, Nose, & Throat: No Symptoms Respiratory: No Symptoms Cardiac: No Symptoms Abdominal/Gastrointestinal: Nausea Genitourinary Symptoms: No Symptoms Musculoskeletal: No Symptoms Skin: No Symptoms Neurological: No Symptoms Psychological: No Symptoms Endocrine: No Symptoms Hematologic/Lymphatic: No Symptoms Immunological/Allergic: No Symptoms Objective Exam General Appearance: no apparent distress Neurologic Exam: alert, cooperative, disoriented, confusion Skin Exam: normal color Eye Exam: PERRL Ears, Nose, Throat Exam: normal ENT inspection Neck Exam: normal inspection Respiratory Exam: diminished breath sounds, wheezing Cardiovascular Exam: regular rate/rhythm, normal heart sounds Gastrointestinal/Abdomen Exam: distention, other (hypoactive bs x 4 quads) Extremity Exam: normal inspection Back Exam: normal inspection Pelvic Exam: deferred Rectal Exam: deferred Objective Data Vital Signs: Vital Signs - 24 hr Temp Pulse Resp BP BP Pulse Ox 04/10/25 04:57 97.1 F 74 16 122/62 94 L 04/10/25 01:27 69 16 95 04/10/25 00:22 98.2 F 75 16 149/73 100 04/09/25 23:46 98.2 F 75 16 149/73 100 04/09/25 23:35 97.2 F 76 16 138/98 100 04/09/25 23:08 100 04/09/25 23:00 76 17 155/100 100 04/09/25 22:30 74 18 144/83 100 04/09/25 22:00 83 16 148/81 100 04/09/25 21:30 88 23 163/92 04/09/25 21:00 77 16 153/74 100 04/09/25 20:30 79 16 147/76 100 04/09/25 20:00 72 15 148/81 100 04/09/25 19:30 75 16 149/76 99 04/09/25 19:06 74 15 148/74 100 04/09/25 19:05 73 19 98 04/09/25 18:52 95 04/09/25 18:30 160/81 04/09/25 18:01 74 29 H 104/82 97 04/09/25 17:30 85 31 H 148/95 04/09/25 17:24 77 21 153/93 98 04/09/25 17:22 98 04/09/25 17:00 79 21 148/97 98 04/09/25 16:47 97.2 F 68 16 138/98 95 Pain Assessment - Last Documented Pain Intensity 0 Intake and Output: Intake & Output 04/07/25 04/08/25 04/09/25 04/10/25 11:59 11:59 11:59 11:59 Output Total 300 Balance -300 Weight 77.6 kg Lab Results: Lab Results-Last 24 Hours 04/09/25 04/09/25 04/09/25 Range/Units 17:36 17:50 17:50 WBC 22.4 H (3.98-10.04) x10^3/uL RBC 4.74 (3.93-5.22) x10^6/uL Hgb 12.9 (11.2-15.7) g/dL Hct 42.0 (34.1-44.9) % MCV 88.6 (79.4-94.8) fL MCH 27.2 (25.6-32.2) pg MCHC 30.7 L (32.2-35.5) g/dL RDW 18.2 H (11.7-14.4) % Plt Count 336 (182-369) x10^3/uL MPV 9.7 (9.4-12.3) fL Gran % 85.2 H (34.0-71.1) % Immature Gran % (Auto) 0.5 H (0.001-0.429) % Nucleat RBC Rel Count 0.0 (0.00-0.2) % Eos # (Auto) 0 L (0.04-0.36) x10^3/uL Immature Gran # (Auto) 0.12 H (0.001-0.031) x10^3u/L Absolute Lymphs (auto) 1.53 (1.18-3.74) x10^3/uL Absolute Monos (auto) 1.56 H (0.24-0.86) x10^3/uL Absolute Nucleated RBC 0.00 (0.00-0.012) x10^3u/L Lymphocytes % 6.8 L (19.3-51.7) % Monocytes % 7.0 (4.7-12.5) % Eosinophils % 0.0 L (0.7-5.8) % Basophils % 0.5 (0.1-1.2) % Absolute Granulocytes 19.05 H (1.56-6.13) x10^3/uL Basophils # 0.11 H (0.01-0.08) x10^3/uL Sodium 143 (135-145) mmol/L Potassium 4.6 (3.5-5.1) mmol/L Chloride 100 (98-107) mmol/L Carbon Dioxide 32 H (22-30) mmol/L Anion Gap 15.8 H (5-15) MEQ/L BUN 50 H (7-17) mg/dL Creatinine 3.01 H (0.52-1.04) mg/dL Estimated GFR 14.6 ML/MIN Glucose 173 H (74-106) mg/dL Lactic Acid 1.2 (0.4-2.0) Calcium 10.0 (8.4-10.2) mg/dL Magnesium 2.6 H (1.6-2.3) mg/dL Total Bilirubin 0.40 (0.2-1.3) mg/dL AST 33 (14-36) U/L ALT 23 (0-35) U/L Alkaline Phosphatase 115 (38-126) U/L Troponin I (0.000-0.033) ng/mL NT-Pro-B Natriuret Pep (<300) pg/mL Serum Total Protein 9.3 H (6.3-8.2) g/dL Albumin 4.7 (3.5-5.0) g/dL Amylase 76 (30-110) U/L Lipase 41 (23-300) U/L Procalcitonin (0.030-0.080) ng/mL Urine Color (Yellow) Urine Appearance (Clear) Urine pH (4.6-8.0) Ur Specific [place] (1.005-1.030) Urine Protein (Negative) Urine Glucose (UA) (Negative) mg/dL Urine Ketones (Negative) Urine Blood (Negative) Urine Nitrite (Negative) Urine Bilirubin (Negative) Urine Urobilinogen (0.2) mg/dL Ur Leukocyte Esterase (Negative) U Hyaline Cast (Auto) (0-2) /LPF Urine Microscopic RBC (0-5) /HPF Urine Microscopic WBC (0-5) /HPF Ur Epithelial Cells (None Seen) /HPF Urine Bacteria (None Seen) /HPF Urine Culture Reflexed (NO) Monoscreen (NEGATIVE) Influenza Type A Ag (NEGATIVE) Influenza Type B Ag (NEGATIVE) RSV (PCR) (NEGATIVE) SARS-CoV-2 (PCR) (NEGATIVE) Slides for Path Review YES 04/09/25 04/09/25 04/09/25 Range/Units 17:50 17:50 17:50 WBC (3.98-10.04) x10^3/uL RBC (3.93-5.22) x10^6/uL Hgb (11.2-15.7) g/dL Hct (34.1-44.9) % MCV (79.4-94.8) fL MCH (25.6-32.2) pg MCHC (32.2-35.5) g/dL RDW (11.7-14.4) % Plt Count (182-369) x10^3/uL MPV (9.4-12.3) fL Gran % (34.0-71.1) % Immature Gran % (Auto) (0.001-0.429) % Nucleat RBC Rel Count (0.00-0.2) % Eos # (Auto) (0.04-0.36) x10^3/uL Immature Gran # (Auto) (0.001-0.031) x10^3u/L Absolute Lymphs (auto) (1.18-3.74) x10^3/uL Absolute Monos (auto) (0.24-0.86) x10^3/uL Absolute Nucleated RBC (0.00-0.012) x10^3u/L Lymphocytes % (19.3-51.7) % Monocytes % (4.7-12.5) % Eosinophils % (0.7-5.8) % Basophils % (0.1-1.2) % Absolute Granulocytes (1.56-6.13) x10^3/uL Basophils # (0.01-0.08) x10^3/uL Sodium (135-145) mmol/L Potassium (3.5-5.1) mmol/L Chloride (98-107) mmol/L Carbon Dioxide (22-30) mmol/L Anion Gap (5-15) MEQ/L BUN (7-17) mg/dL Creatinine (0.52-1.04) mg/dL Estimated GFR ML/MIN Glucose (74-106) mg/dL Lactic Acid (0.4-2.0) Calcium (8.4-10.2) mg/dL Magnesium (1.6-2.3) mg/dL Total Bilirubin (0.2-1.3) mg/dL AST (14-36) U/L ALT (0-35) U/L Alkaline Phosphatase (38-126) U/L Troponin I 0.040 H* (0.000-0.033) ng/mL NT-Pro-B Natriuret Pep 2600 (<300) pg/mL Serum Total Protein (6.3-8.2) g/dL Albumin (3.5-5.0) g/dL Amylase (30-110) U/L Lipase (23-300) U/L Procalcitonin 0.244 H (0.030-0.080) ng/mL Urine Color (Yellow) Urine Appearance (Clear) Urine pH (4.6-8.0) Ur Specific [place] (1.005-1.030) Urine Protein (Negative) Urine Glucose (UA) (Negative) mg/dL Urine Ketones (Negative) Urine Blood (Negative) Urine Nitrite (Negative) Urine Bilirubin (Negative) Urine Urobilinogen (0.2) mg/dL Ur Leukocyte Esterase (Negative) U Hyaline Cast (Auto) (0-2) /LPF Urine Microscopic RBC (0-5) /HPF Urine Microscopic WBC (0-5) /HPF Ur Epithelial Cells (None Seen) /HPF Urine Bacteria (None Seen) /HPF Urine Culture Reflexed (NO) Monoscreen NEGATIVE (NEGATIVE) Influenza Type A Ag (NEGATIVE) Influenza Type B Ag (NEGATIVE) RSV (PCR) (NEGATIVE) SARS-CoV-2 (PCR) (NEGATIVE) Slides for Path Review 04/09/25 04/09/25 04/09/25 Range/Units 18:12 18:18 21:50 WBC (3.98-10.04) x10^3/uL RBC (3.93-5.22) x10^6/uL Hgb (11.2-15.7) g/dL Hct (34.1-44.9) % MCV (79.4-94.8) fL MCH (25.6-32.2) pg MCHC (32.2-35.5) g/dL RDW (11.7-14.4) % Plt Count (182-369) x10^3/uL MPV (9.4-12.3) fL Gran % (34.0-71.1) % Immature Gran % (Auto) (0.001-0.429) % Nucleat RBC Rel Count (0.00-0.2) % Eos # (Auto) (0.04-0.36) x10^3/uL Immature Gran # (Auto) (0.001-0.031) x10^3u/L Absolute Lymphs (auto) (1.18-3.74) x10^3/uL Absolute Monos (auto) (0.24-0.86) x10^3/uL Absolute Nucleated RBC (0.00-0.012) x10^3u/L Lymphocytes % (19.3-51.7) % Monocytes % (4.7-12.5) % Eosinophils % (0.7-5.8) % Basophils % (0.1-1.2) % Absolute Granulocytes (1.56-6.13) x10^3/uL Basophils # (0.01-0.08) x10^3/uL Sodium (135-145) mmol/L Potassium (3.5-5.1) mmol/L Chloride (98-107) mmol/L Carbon Dioxide (22-30) mmol/L Anion Gap (5-15) MEQ/L BUN (7-17) mg/dL Creatinine (0.52-1.04) mg/dL Estimated GFR ML/MIN Glucose (74-106) mg/dL Lactic Acid (0.4-2.0) Calcium (8.4-10.2) mg/dL Magnesium (1.6-2.3) mg/dL Total Bilirubin (0.2-1.3) mg/dL AST (14-36) U/L ALT (0-35) U/L Alkaline Phosphatase (38-126) U/L Troponin I 0.050 H* (0.000-0.033) ng/mL NT-Pro-B Natriuret Pep (<300) pg/mL Serum Total Protein (6.3-8.2) g/dL Albumin (3.5-5.0) g/dL Amylase (30-110) U/L Lipase (23-300) U/L Procalcitonin (0.030-0.080) ng/mL Urine Color Yellow (Yellow) Urine Appearance Cloudy A (Clear) Urine pH 6.5 (4.6-8.0) Ur Specific [place] 1.020 (1.005-1.030) Urine Protein 30 (Negative) Urine Glucose (UA) Negative (Negative) mg/dL Urine Ketones Trace A (Negative) Urine Blood Negative (Negative) Urine Nitrite Negative (Negative) Urine Bilirubin Negative (Negative) Urine Urobilinogen 1.0 A (0.2) mg/dL Ur Leukocyte Esterase Large A (Negative) U Hyaline Cast (Auto) 20-50 (0-2) /LPF Urine Microscopic RBC 0-2 (0-5) /HPF Urine Microscopic WBC >100 A (0-5) /HPF Ur Epithelial Cells Rare (None Seen) /HPF Urine Bacteria Many A (None Seen) /HPF Urine Culture Reflexed YES (NO) Monoscreen (NEGATIVE) Influenza Type A Ag NEGATIVE (NEGATIVE) Influenza Type B Ag NEGATIVE (NEGATIVE) RSV (PCR) NEGATIVE (NEGATIVE) SARS-CoV-2 (PCR) NEGATIVE (NEGATIVE) Slides for Path Review Radiology Exams: Radiology Procedures Category Date Time Status ABDOMEN AND PELVIS W/0 CONTRAS [CT] Stat Exams 04/09/25 18:41 Taken CHEST 1 VIEW (PORTABLE) Stat Exams 04/09/25 19:27 Taken CHEST 1 VIEW (PORTABLE) Stat Exams 04/09/25 22:35 Taken Medications: Medications Generic Name Dose Route Start Last Admin Trade Name Freq PRN Reason Stop Dose Admin Acetaminophen 650 mg 04/10/25 00:10 Acetaminophen 650 Mg Supp.Rect IN 05/10/25 00:09 Q4H PRN PRN PAIN AND/OR FEVER Albuterol Sulfate mg 04/10/25 10:00 Albuterol Sulfate 2.5 Mg/3 Ml Neb 05/10/25 09:59 TID ROSARIO Albuterol/Ipratropium 3 ml 04/10/25 00:15 Ipratropium/Albuterol Sulfate 3 Ml Ampul.Neb 05/10/25 00:14 Q4HPRN PRN SHORTNESS OF BREATH/WHEEZING Amlodipine Besylate 5 mg 04/10/25 10:00 Amlodipine Besylate 5 Mg Tablet PO 05/10/25 09:59 [facility]ILY [facility] Aspirin 81 mg 04/10/25 10:00 Aspirin 81 Mg Tab.Chew PO 05/10/25 09:59 [facility] Atorvastatin Calcium 40 mg 04/10/25 22:00 Atorvastatin Calcium 40 Mg Tablet PO 05/10/25 21:59 HS [facility] Cholecalciferol 1,000 unit 04/10/25 00:30 Cholecalciferol (Vitamin D3) 1000 Unit Tablet PO 05/10/25 00:29 UD [facility] Escitalopram Oxalate 10 mg 04/10/25 10:00 Escitalopram Oxalate 10 Mg Tablet PO 05/10/25 09:59 DAILY [facility] Folic Acid 1 mg 04/10/25 10:00 Folic Acid 1 Mg Tablet PO 05/10/25 09:59 DAILY [facility] Ceftriaxone Sodium 1 gm in 100 mls @ 200 mls/hr 04/10/25 10:00 Rocephin 1 Gm / 100 Ml Nacl IV 05/10/25 09:59 Q24H10 [facility] Sodium Chloride 1,000 mls @ 100 mls/hr 04/10/25 00:30 Sodium Chloride 0.45% 1000 Ml IV 05/10/25 00:29 .Q10H [facility] Insulin Glargine 10 unit 04/10/25 00:30 Insulin Glargine 1 Unit SQ 05/10/25 00:29 UD [facility] Insulin Human Lispro 0 unit 04/10/25 00:10 Insulin Lispro 1 Unit SQ 05/10/25 00:09 UD PRN HYPERGLYCEMIA Memantine 5 mg 04/10/25 22:00 Memantine Hcl 5 Mg Tablet PO 05/10/25 21:59 QHS [facility] Non-Formulary Medication 2.5 mg 04/10/25 10:00 Apixaban [Eliquis 5 Mg Tablet] PO 05/10/25 09:59 BID [facility] Non-Formulary Medication 10 mg 04/10/25 10:00 Donepezil Hcl [Aricept] PO 05/10/25 09:59 DAILY [facility] Non-Formulary Medication 1 puff 04/10/25 10:00 Fluticasone/Umeclidin/Vilanter [Trelegy Ellipta 100-62.5-25] 05/10/25 09:59 DAILY [facility] Non-Formulary Medication 10 mg 04/10/25 22:00 Olanzapine [Olanzapine] PO 05/10/25 21:59 HS [facility] Ondansetron HCl 4 mg 04/10/25 00:10 Ondansetron Hcl 4 Mg/2 Ml Vial IV 05/10/25 00:09 Q6H PRN PRN NAUSEA/VOMITING Pantoprazole Sodium 40 mg 04/10/25 00:15 04/10/25 02:25 Pantoprazole 40 Mg Vial IV 05/10/25 00:14 Not Given Q24H [facility] Fluticasone/Salmeterol 2 puff 04/10/25 07:00 Fluticasone/Salmeterol 115/21 60 Puff Aer.W.Adap 05/10/25 06:59 BIDRT [facility] Tiotropium [place] 1 ea 04/10/25 10:00 Tiotropium [place] 18 Mcg/Cap Inhaler 05/10/25 09:59 DAILY [facility] Discontinued Medications Generic Name Dose Route Start Last Admin Trade Name Freq PRN Reason Stop Dose Admin Sodium Chloride 1,000 mls @ 999 mls/hr 04/09/25 17:36 04/09/25 19:00 Sodium Chloride 0.9% 1000 Ml IV 04/09/25 18:36 Infused .Q1H1M STA Infusion Sodium Chloride Confirm 04/09/25 17:43 Sodium Chloride 0.9% 1000 Ml Administered 04/09/25 17:44 Dose 1,000 mls @ ud .ROUTE .STK-MED ONE Ceftriaxone Sodium 1 gm in 100 mls @ 200 mls/hr 04/09/25 21:06 04/09/25 22:00 Rocephin 1 Gm / 100 Ml Nacl IV 04/09/25 21:35 Infused STAT ONE Infusion Ceftriaxone Sodium Confirm 04/09/25 21:16 Rocephin 1 Gm / 100 Ml Nacl Administered 04/09/25 21:17 Dose 1 gm in 100 mls @ ud IV .STK-MED ONE Dextrose/Sodium Chloride 1,000 mls @ 100 mls/hr 04/09/25 21:30 04/09/25 22:07 Dextrose 5% -0.45 Nacl 1000 Ml IV 05/09/25 21:29 100 mls/hr .Q10H ROSARIO Administration Dextrose/Sodium Chloride Confirm 04/09/25 22:07 Dextrose 5% -0.45 Nacl 1000 Ml Administered 04/09/25 22:08 Dose 1,000 mls @ ud IV .STK-MED ONE Sodium Chloride 1,000 mls @ 100 mls/hr 04/10/25 00:15 Sodium Chloride 0.9% 1000 Ml IV 05/10/25 00:14 .Q10H [facility] Morphine Sulfate 2 mg 04/09/25 18:48 04/09/25 19:14 Morphine Sulfate 2 Mg/Ml Inj IV 04/09/25 18:49 2 mg STAT ONE Administration Morphine Sulfate Confirm 04/09/25 19:13 Morphine Sulfate 2 Mg/Ml Inj Administered 04/09/25 19:14 Dose 2 mg .ROUTE .STK-MED ONE Ondansetron HCl 4 mg 04/09/25 17:36 04/09/25 17:56 Ondansetron Hcl 4 Mg/2 Ml Vial IV 04/09/25 17:37 4 mg STAT ONE Administration Ondansetron HCl Confirm 04/09/25 17:43 Ondansetron Hcl 4 Mg/2 Ml Vial Administered 04/09/25 17:44 Dose 4 mg .ROUTE .STK-MED ONE Pantoprazole Sodium 40 mg 04/09/25 17:36 04/09/25 17:58 Pantoprazole 40 Mg Vial IV 04/09/25 17:37 40 mg STAT ONE Administration Pantoprazole Sodium Confirm 04/09/25 17:43 Pantoprazole 40 Mg Vial Administered 04/09/25 17:44 Dose 40 mg IV .STK-MED ONE Assessment/Plan (1) Small bowel obstruction Current Visit: Yes Status: Acute Assessment & Plan: -Keep patient NPO. -NG to LIS -IVF -Serial abdominal exams and monitoring of vitals, urine output, and electrolytes. -Surgical consult for ongoing evaluation, particularly if obstruction persists, patient develops worsening pain, peritonitis, or evidence of ischemia/perforation. Code(s): K56.609 - UNSP INTESTNL OBST, UNSP TO PARTIAL VERSUS COMPLETE OBST (2) Abdominal pain Current Visit: Yes Status: Acute Assessment & Plan: -see above Code(s): R10.9 - UNSPECIFIED ABDOMINAL PAIN (3) Acute UTI Current Visit: Yes Status: Acute Assessment & Plan: -UA concerning, leukocytosis present (WBC 22.4). Procalcitonin modestly elevated. -Continue ceftriaxone pending urine culture and sensitivity Code(s): N39.0 - URINARY TRACT INFECTION, SITE NOT SPECIFIED (4) Acute kidney injury superimposed on chronic kidney disease Current Visit: Yes Status: Acute Assessment & Plan: -Elevated creatinine from baseline 1.7 - 3.01, with BUN 50, likely prerenal component from volume depletion due to vomiting and NPO status. -Continue cautious IV hydration, strict I&O monitoring, daily BMPs, avoid nephrotoxic agents, hold renally active meds (losartan, Bumex). Code(s): N17.9 - ACUTE KIDNEY FAILURE, UNSPECIFIED; N18.9 - CHRONIC KIDNEY DISEASE, UNSPECIFIED (5) Elevated troponin Current Visit: Yes Status: Acute Assessment & Plan: -Troponin trend (0.040 - 0.050), no ischemic EKG changes, no chest pain; elev ation likely due to demand ischemia in the setting of infection/ELYSE. -Telemetry monitoring, continue trending troponin and EKG, manage underlying triggers. Code(s): R77.8 - OTHER SPECIFIED ABNORMALITIES OF PLASMA PROTEINS (6) Leucocytosis Current Visit: Yes Status: Acute Qualifiers: Leukocytosis type: unspecified Qualified Code(s): D72.829 - Elevated white blood cell count, unspecified Assessment & Plan: - Initial WBC 22.4; likely multifactorial from UTI and possible inflammatory stress of ileus. -Continue ceftriaxone, monitor CBC daily, trend response to therapy. Code(s): D72.829 - ELEVATED WHITE BLOOD CELL COUNT, UNSPECIFIED (7) Vomiting Current Visit: Yes Status: Acute Qualifiers: Migraine intractability: intractable Assessment & Plan: see ileus Code(s): R11.10 - VOMITING, UNSPECIFIED (8) Alzheimer's dementia with behavioral disturbance Current Visit: Yes Status: Chronic Assessment & Plan: -Advanced dementia, unable to provide reliable history. -Continue home cognitive/behavioral regimen, supportive care, ensure safe environment Code(s): G30.9 - ALZHEIMER'S DISEASE, UNSPECIFIED; F02.81 - DEM IN OTHER DIS CLASSD ELSWHR, UNSP SEV, WIT * DO NOT USE * (9) Atrial fibrillation Current Visit: Yes Status: Chronic Qualifiers: Atrial fibrillation type: paroxysmal Qualified Code(s): I48.0 - Paroxysmal atrial fibrillation Assessment & Plan: -On chronic anticoagulation with apixaban; currently rate controlled. -Continue Eliquis; monitor heart rhythm via telemetry. Code(s): I48.91 - UNSPECIFIED ATRIAL FIBRILLATION (10) CHF (congestive heart failure) Current Visit: Yes Status: Chronic Qualifiers: Heart failure type: combined systolic and diastolic Heart failure chronicity: chronic Qualified Code(s): I50.42 - Chronic combined systolic (congestive) and diastolic (congestive) heart failure Assessment & Plan: -BNP elevated (2600), but no signs of acute decompensation. --Hold Bumex and losartan due to ELYSE, not on beta-raven due to COPD history, monitor volume status carefully -EF estimated at 20% on last echo in 2023- obtain echo Code(s): I50.9 - HEART FAILURE, UNSPECIFIED (11) COPD (chronic obstructive pulmonary disease) Current Visit: Yes Status: Chronic Qualifiers: Assessment & Plan: -No acute worsening. -Continue home O2, PRN Duonebs. Monitor for respiratory decline (12) Chronic hypoxemic respiratory failure Current Visit: Yes Status: Chronic Assessment & Plan: -Related to COPD; patient uses supplemental oxygen at home. -Continue home oxygen regimen, monitor O? saturations, maintain respiratory support (13) Depression with anxiety Current Visit: Yes Status: Chronic Code(s): F41.8 - OTHER SPECIFIED ANXIETY DISORDERS (14) GERD (gastroesophageal reflux disease) Current Visit: Yes Status: Chronic Qualifiers: Esophagitis presence: esophagitis presence not specified Qualified Code(s): K21.9 - Gastro-esophageal reflux disease without esophagitis Assessment & Plan: -Chronic, no reported acute GI bleed. -IV PPI while inpatient. Code(s): K21.9 - GASTRO-ESOPHAGEAL REFLUX DISEASE WITHOUT ESOPHAGITIS (15) Opacity noted on imaging study Current Visit: Yes Status: Acute Assessment & Plan: -Suspected aspiration pneumonia due to vomiting with SBO, new RLL opacity on CT, baseline 2 L O2, WBC 22 - 14, and mildly elevated procalcitonin (0.244). -Start Zosyn IV, adjust for renal function. -Blood/sputum cultures pending; narrow antibiotics as able. -Monitor WBC, procalcitonin, and O2 requirements. -Maintain O2 at baseline 2 L, titrate for SpO2 > 92%. -NPO while SBO managed, HOB > 30, pulmonary hygiene. Code(s): R93.89 - ABNORMAL FINDINGS ON DX IMAGING OF OTH BODY STRUCTURES (16) Type II diabetes mellitus Current Visit: Yes Status: Chronic Qualifiers: Diabetes mellitus penitentiary insulin use: with penitentiary use Diabetes mellitus complication status: with neurologic complications Diabetes mellitus complication detail: with polyneuropathy Qualified Code(s): E11.42 - Type 2 diabetes mellitus with diabetic polyneuropathy; Z79.4 - senior care (current) use of insulin Assessment & Plan: -Chronic condition, at risk for hypoglycemia given NPO status. - Decrease basal insulin to 10 units daily, initiate insulin sliding scale with accuchecks Q6h. (17) HTN (hypertension) Current Visit: No Status: Chronic Assessment & Plan: -Stable blood pressures. -Continue amlodipine, hold losartan given ELYSE. VTE: Eliquis PPI: protonix Dispo: 1-3 days Code status: Full Code Plan of care time spent > 40 mins Code(s): I10 - ESSENTIAL (PRIMARY) HYPERTENSION
[2025-04-10 05:42] LABS: Calcium 9.2 mg/dL (8.4-10.2); Carbon Dioxide 29.0 mmol/L (22-30); Creatinine 1 2.6 mg/dL (0.52-1.04); EST GLOMERULAR FILTRATION RATE 17.4 ML/MIN; Glucose 257.0 mg/dL (74-106); NT PRO BNPII 2100.0 pg/mL (<300); Potassium 4.3 mmol/L (3.5-5.1); SGOT/AST 28.0 U/L (14-36); SGPT/ALT 19.0 U/L (0-35); Total Protein 7.8 g/dL (6.3-8.2)
[2025-04-10] MEDS: HUMALOG SQ PRN (06:05)
[2025-04-10] MEDS ORDERED: PROVENTIL 2.5 MG/3 ML NEB IH ONE (06:28)
[2025-04-10] MEDS: Advair Hfa 115/21 Common canister IH SCH (06:30)
[2025-04-10] MEDS: PROVENTIL 2.5 MG/3 ML NEB IH SCH (06:30)
[2025-04-10] MEDS ORDERED: MEDICATION INTERVENTION MC SCH (07:30)
--- NOTE | 2025-04-10 08:37 | XRAY ---
Indication: NG tube placement. Comparison: Taken earlier in the day Portable chest demonstrates new NG tube traversing chest with tip in stomach. Remaining chest unchanged again with bibasilar infiltrates/atelectasis, borderline cardiomegaly, arteriosclerotic tortuous descending aorta, and left pacemaker.
--- NOTE | 2025-04-10 08:37 | XRAY ---
Indication: Vomiting. Comparison: September 24, 2024 Portable chest demonstrates stable bibasilar infiltrates/atelectasis. Heart remains enlarged again with arteriosclerotic tortuous descending aorta and left pacemaker. Bony thorax intact again with osteopenia and degenerative changes. No new abnormalities.
--- NOTE | 2025-04-10 08:49 | XRAY ---
Indication: Abdominal pain. Vomiting. Multiple contiguous axial images obtained through the abdomen and pelvis without contrast. Comparison: September 24, 2024 Lung bases again demonstrates endobronchial opacities in right lower lobe with postobstructive atelectasis concerning for aspiration. Again scattered left lower lobe subsegmental atelectasis/scarring. No effusion. Heart remains borderline enlarged. Again abnormal fluid distended stomach, more than before. Also continued abnormal fluid distended small bowel loops up to 4.6 cm diameter with fluid leveling. Transition point seen right mid abdomen/distal ileum favoring small-bowel obstruction. More distal small bowel and colon appears decompressed. Again scattered colonic diverticulosis. New moderate rectal fecal impaction. No free fluid/air. Stable left nephrectomy, small right renal cyst, and near empty urinary bladder with Lea balloon catheter in Situ. Again extensive scattered arteriosclerotic disease with prominent thoracoabdominal aorta. Grossly stable infrarenal measuring 4.3 x 6.4 cm in greatest axial dimension. Osseous structures intact again with osteopenia, mild/moderate multilevel degenerative spondylosis, minimal elongated levoscoliosis, and mild degenerative changes both hips. Impression: 1. Again abnormal fluid distended stomach and small bowel loops with fluid leveling favoring small bowel obstruction. Transition point right mid abdomen. No free fluid/air. 2. New rectal fecal impaction. 3. Again endobronchial opacities in right lower lobe with postobstructive atelectasis. Rule out aspiration. 4. Chronic findings including borderline cardiomegaly, extensive arteriosclerotic disease with AAA, left nephrectomy, right renal cyst, chronic bony findings, and Lea catheter in Situ.
[2025-04-10] MEDS: VITAMIN D PO SCH (09:37)
[2025-04-10] MEDS: ECOTRIN 81 MG PO SCH (09:38)
[2025-04-10] MEDS: NORVASC 5 MG PO SCH (09:38)
[2025-04-10] MEDS: FOLATE 1 MG PO SCH (09:38)
[2025-04-10] MEDS: ELIQUIS 2.5 MG TABLET PO SCH (09:38)
[2025-04-10] MEDS: Lexapro PO SCH (09:38)
[2025-04-10] MEDS: Aricept 10 MG PO SCH (09:39)
[2025-04-10] MEDS ORDERED: BABY ASPIRIN 81 MG CHEW PO SCH (10:00)
[2025-04-10] MEDS ORDERED: NON-FORMULARY ITEM (Donepezil Hcl [Aricept] 5 MG Tablet) PO SCH (10:00)
[2025-04-10] MEDS ORDERED: NON-FORMULARY ITEM (Fluticasone/Umeclidin/Vilanter [Trelegy Ellipta 100-62.5-25] 1 EACH Bl IH SCH (10:00)
[2025-04-10] MEDS ORDERED: APIXABAN PO SCH (10:00)
[2025-04-10] MEDS: PHARMACY RENAL DOSING MC ONE (11:26)
[2025-04-10] MEDS ORDERED: Piperacillin/Tazobactam 2.25 GM IV ONE (11:41)
[2025-04-10] MEDS: Piperacillin/Tazobactam 2.25 GM 2.25 GM in Sodium Chloride 0.9% 100 ML IV SCH (11:47)
[2025-04-10] MEDS ORDERED: PROVENTIL 2.5 MG/3 ML NEB IH SCH (13:00)
[2025-04-10] MEDS: Zofran 4 MG/2 ML VIAL IV PRN (16:59)
--- NOTE | 2025-04-10 19:08 | XRAY ---
Indication: NG tube placement. Comparison: One day earlier. Portable chest again demonstrates NG tube traversing chest with tip in proximal stomach. Lungs demonstrates bibasilar infiltrates/atelectasis unchanged. Heart remains borderline enlarged again with arteriosclerotic tortuous descending aorta and left pacemaker. No new cardiopulmonary abnormalities.
[2025-04-10] MEDS ORDERED: ROCEPHIN 1 GM / 100 ML NaCl 1 GM/100 ML IVPB IV SCH (22:00)
[2025-04-10] MEDS ORDERED: LIPITOR 40MG PO SCH (22:00)
[2025-04-10] MEDS ORDERED: NON-FORMULARY ITEM (Olanzapine [Olanzapine] 10 MG Tablet) PO SCH (22:00)
[2025-04-10] MEDS: ZOCOR 20MG PO SCH (22:46)
[2025-04-10] MEDS: Zyprexa Zydis 5 MG PO SCH (22:46)
[2025-04-10] MEDS: Namenda 5 MG PO SCH (22:47)
[2025-04-10] MEDS: Spiriva 18 Mcg/Cap Inhaler IH SCH (22:58)
--- NOTE | 2025-04-11 05:20 | PCM.NOTE ---
Date and Time: 04/11/25 0518 Subjective Assessment: Ms. Plaza is an 85-year-old woman with a complex past medical history including abdominal aortic aneurysm, HFpEF, mild aortic stenosis, CKD status post nephrectomy, COPD with chronic hypoxemic respiratory failure, hypertension, hyperlipidemia, GERD, type 2 diabetes mellitus with neuropathy, Alzheimers d ementia, bradycardia with pacemaker, IBS, prior CVA, peripheral neuropathy, and atrial fibrillation on anticoagulation. She presented from home with her daughter due to two days of persistent vomiting and abdominal distension. Because of her advanced dementia, she was unable to provide reliable history, and her daughter reported that she had not tolerated fluids or solids for two days. She had a bowel movement earlier in the ED. On arrival, she was hemodynamically stable but noted to have significant abdominal distension and tenderness. Laboratory studies revealed marked leukocytosis (WBC 22.4), metabolic derangements with CO2 32 and anion gap 15.8, and worsening renal function compared to baseline (BUN 50, creatinine 3.01; baseline 1.7), consistent with acute kidney injury superimposed on CKD. Magnesium was elevated at 2.6. BNP was elevated at 2600, consistent with her known heart failure, but without clinical signs of acute decompensation. Cardiac biomarkers showed mild troponin elevation (0.040 - 0.050), without chest pain or ischemic EKG changes (NSR, normal intervals and QRS). Serum total protein was 9.3, and procalcitonin 0.244. Urinalysis was suspicious for infection, and c eftriaxone was initiated empirically. CXR showing bibasilar infiltrates/atelectasis with borderline cardiomegaly. CT abdomen/pelvis demonstrated findings abnormal fluid distended stomach and small bowel loops with fluid leveling favoring small bowel obstruction. Transition point right mid abdomen. No free fluid/air. New rectal fecal impaction. Again endobronchial opacities in right lower lobe with postobstructive atelectasis. Rule out aspiration. Chronic findings including borderline cardiomegaly, extensive arteriosclerotic disease with AAA, left nephrectomy, right renal cyst, chronic bony findings, and Lea catheter in Situ General surgery was consulted and recommended nonsurgical management. An NG tube was placed in the ED with decompression, IV fluid hydration was started, and antiemetics provided. 04/10/25: Met with patient bedside. Endorses some improvment but remains nauseous. ED did report patient had BM yesterday. Plan for continued conservative treatment pending surgery recommendations. 04/11/25: Met with patient bedside. Daughter also at bedside. Patient still endorses nausea and vomiting despite NG placement. Surgery is following and recommended fleets x 2 which has produced bowel movement. Placement of NG has been noted. KUB performed today favoring continued bowel obstruction. Awaiting further recommendations from surgery. - Review of Systems Constitutional: No Symptoms Eyes: No Symptoms Ears, Nose, & Throat: No Symptoms Respiratory: No Symptoms Cardiac: No Symptoms Abdominal/Gastrointestinal: Abdominal Pain, Nausea, Vomiting Genitourinary Symptoms: No Symptoms Musculoskeletal: No Symptoms Skin: No Symptoms Neurological: No Symptoms Psychological: No Symptoms Endocrine: No Symptoms Hematologic/Lymphatic: No Symptoms Immunological/Allergic: No Symptoms Objective Exam General Appearance: no apparent distress Neurologic Exam: alert, cooperative, disoriented, confusion Skin Exam: normal color Eye Exam: PERRL Ears, Nose, Throat Exam: normal ENT inspection Neck Exam: normal inspection Respiratory Exam: crackles/rales Cardiovascular Exam: regular rate/rhythm, normal heart sounds Gastrointestinal/Abdomen Exam: other (hypoactive bs x 4 quads) Extremity Exam: normal inspection Back Exam: normal inspection Pelvic Exam: deferred Rectal Exam: deferred Objective Data Vital Signs: Vital Signs - 24 hr Temp Pulse Resp BP Pulse Ox 04/11/25 04:00 97.8 F 81 19 172/77 97 04/10/25 23:57 97.9 F 78 23 147/68 95 04/10/25 20:00 97.6 F 90 16 159/70 94 L 04/10/25 18:59 72 16 95 04/10/25 15:52 97.7 F 73 20 124/64 96 04/10/25 12:51 65 20 97 04/10/25 11:25 98.4 F 67 16 137/66 99 04/10/25 07:22 97.8 F 71 16 144/74 100 04/10/25 06:34 75 18 96 Pain Assessment - Last Documented Pain Intensity 0 Intake and Output: Intake & Output 04/08/25 04/09/25 04/10/25 04/11/25 11:59 11:59 11:59 11:59 Intake Total 734 2257 Output Total 725 650 Balance 9 1607 Weight 77.6 kg Lab Results: Lab Results-Last 24 Hours 04/10/25 04/10/25 04/10/25 Range/Units 04:34 04:34 04:34 WBC 15.0 H (3.98-10.04) x10^3/uL RBC 4.30 (3.93-5.22) x10^6/uL Hgb 11.4 (11.2-15.7) g/dL Hct 38.4 (34.1-44.9) % MCV 89.3 (79.4-94.8) fL MCH 26.5 (25.6-32.2) pg MCHC 29.7 L (32.2-35.5) g/dL RDW 18.3 H (11.7-14.4) % Plt Count 281 (182-369) x10^3/uL MPV 10.2 (9.4-12.3) fL Sodium 142 (135-145) mmol/L Potassium 4.3 (3.5-5.1) mmol/L Chloride 102 (98-107) mmol/L Carbon Dioxide 29 (22-30) mmol/L Anion Gap 14.3 (5-15) MEQ/L BUN 49 H (7-17) mg/dL Creatinine 2.60 H (0.52-1.04) mg/dL Estimated GFR 17.4 ML/MIN Glucose 257 H (74-106) mg/dL POC Glucometer (74 to 106) mg/dL Calcium 9.2 (8.4-10.2) mg/dL Total Bilirubin 0.20 (0.2-1.3) mg/dL AST 28 (14-36) U/L ALT 19 (0-35) U/L Alkaline Phosphatase 97 (38-126) U/L Troponin I 0.046 H* (0.000-0.033) ng/mL NT-Pro-B Natriuret Pep 2100 (<300) pg/mL Serum Total Protein 7.8 (6.3-8.2) g/dL Albumin 4.1 (3.5-5.0) g/dL 04/10/25 04/10/25 04/10/25 Range/Units 05:56 07:11 10:10 WBC (3.98-10.04) x10^3/uL RBC (3.93-5.22) x10^6/uL Hgb (11.2-15.7) g/dL Hct (34.1-44.9) % MCV (79.4-94.8) fL MCH (25.6-32.2) pg MCHC (32.2-35.5) g/dL RDW (11.7-14.4) % Plt Count (182-369) x10^3/uL MPV (9.4-12.3) fL Sodium (135-145) mmol/L Potassium (3.5-5.1) mmol/L Chloride (98-107) mmol/L Carbon Dioxide (22-30) mmol/L Anion Gap (5-15) MEQ/L BUN (7-17) mg/dL Creatinine (0.52-1.04) mg/dL Estimated GFR ML/MIN Glucose (74-106) mg/dL POC Glucometer 256 H 248 H (74 to 106) mg/dL Calcium (8.4-10.2) mg/dL Total Bilirubin (0.2-1.3) mg/dL AST (14-36) U/L ALT (0-35) U/L Alkaline Phosphatase (38-126) U/L Troponin I 0.038 H* (0.000-0.033) ng/mL NT-Pro-B Natriuret Pep (<300) pg/mL Serum Total Protein (6.3-8.2) g/dL Albumin (3.5-5.0) g/dL 04/10/25 04/10/25 04/10/25 Range/Units 11:08 16:13 21:44 WBC (3.98-10.04) x10^3/uL RBC (3.93-5.22) x10^6/uL Hgb (11.2-15.7) g/dL Hct (34.1-44.9) % MCV (79.4-94.8) fL MCH (25.6-32.2) pg MCHC (32.2-35.5) g/dL RDW (11.7-14.4) % Plt Count (182-369) x10^3/uL MPV (9.4-12.3) fL Sodium (135-145) mmol/L Potassium (3.5-5.1) mmol/L Chloride (98-107) mmol/L Carbon Dioxide (22-30) mmol/L Anion Gap (5-15) MEQ/L BUN (7-17) mg/dL Creatinine (0.52-1.04) mg/dL Estimated GFR ML/MIN Glucose (74-106) mg/dL POC Glucometer 175 H 192 H 175 H (74 to 106) mg/dL Calcium (8.4-10.2) mg/dL Total Bilirubin (0.2-1.3) mg/dL AST (14-36) U/L ALT (0-35) U/L Alkaline Phosphatase (38-126) U/L Troponin I (0.000-0.033) ng/mL NT-Pro-B Natriuret Pep (<300) pg/mL Serum Total Protein (6.3-8.2) g/dL Albumin (3.5-5.0) g/dL Radiology Exams: Radiology Procedures Category Date Time Status ABDOMEN AND PELVIS W/0 CONTRAS [CT] Stat Exams 04/09/25 18:41 Completed CHEST 1 VIEW (PORTABLE) Stat Exams 04/09/25 19:27 Completed CHEST 1 VIEW (PORTABLE) Stat Exams 04/09/25 22:35 Completed CHEST 1 VIEW (PORTABLE) Stat Exams 04/10/25 16:52 Completed Medications: Medications Generic Name Dose Route Start Last Admin Trade Name Freq PRN Reason Stop Dose Admin Acetaminophen 650 mg 04/10/25 00:10 Acetaminophen 650 Mg Supp.Rect [place] 05/10/25 00:09 Q4H PRN PRN PAIN AND/OR FEVER Albuterol Sulfate 2.5 mg 04/10/25 07:00 04/10/25 18:58 Albuterol Sulfate 2.5 Mg/3 Ml Neb 05/10/25 06:59 2.5 mg TIDRT RSOARIO Administration Albuterol/Ipratropium 3 ml 04/10/25 00:15 Ipratropium/Albuterol Sulfate 3 Ml Ampul.Neb 05/10/25 00:14 Q4HPRN PRN SHORTNESS OF BREATH/WHEEZING Amlodipine Besylate 5 mg 04/10/25 10:00 04/10/25 09:38 Amlodipine Besylate 5 Mg Tablet PO 05/10/25 09:59 5 mg DAILY ROSARIO Administration Apixaban 2.5 mg 04/10/25 10:00 04/10/25 22:46 Apixaban 2.5 Mg Tablet PO 05/10/25 09:59 2.5 mg BID ROSARIO Administration Aspirin 81 mg 04/10/25 10:00 04/10/25 09:38 Aspirin 81 Mg Tablet.Ec PO 05/10/25 09:59 81 mg DAILY ROSARIO Administration Cholecalciferol 1,000 unit 04/10/25 10:00 04/10/25 09:37 Cholecalciferol (Vitamin D3) 1000 Unit Tablet PO 05/10/25 09:59 1,000 unit DAILY ROSARIO Administration Donepezil HCl 10 mg 04/10/25 10:00 04/10/25 09:39 Donepezil Hcl 10 Mg Tablet PO 05/10/25 09:59 10 mg DAILY ROSARIO Administration Escitalopram Oxalate 10 mg 04/10/25 10:00 04/10/25 09:38 Escitalopram Oxalate 10 Mg Tablet PO 05/10/25 09:59 10 mg DAILY ROSARIO Administration Folic Acid 1 mg 04/10/25 10:00 04/10/25 09:38 Folic Acid 1 Mg Tablet PO 05/10/25 09:59 1 mg DAILY ROSARIO Administration Sodium Chloride 1,000 mls @ 100 mls/hr 04/10/25 00:30 04/10/25 17:58 Sodium Chloride 0.45% 1000 Ml IV 05/10/25 00:29 100 mls/hr .Q10H ROSARIO Administration Piperacillin Sod/Tazobactam 100 mls @ 200 mls/hr 04/10/25 12:00 04/10/25 22:46 Sod 2.25 gm/ Sodium Chloride IV 05/10/25 11:59 200 mls/hr Q8HT ROSARIO Administration Insulin Glargine 10 unit 04/11/25 10:00 Insulin Glargine 1 Unit SQ 05/11/25 09:59 DAILY ROSARIO Insulin Human Lispro 0 unit 04/10/25 00:10 04/10/25 09:16 Insulin Lispro 1 Unit SQ 05/10/25 00:09 2 unit UD PRN Administration HYPERGLYCEMIA Memantine 5 mg 04/10/25 22:00 04/10/25 22:47 Memantine Hcl 5 Mg Tablet PO 05/10/25 21:59 5 mg QHS ROSARIO Administration Miscellaneous Information 1 each 04/10/25 07:30 Medication Intervention 1 Each Each 05/10/25 07:29 .RN TO CHECK ROSARIO Olanzapine 10 mg 04/10/25 22:00 04/10/25 22:46 Olanzapine 5 Mg/Tab Orally Disintegrating PO 05/10/25 21:59 10 mg HS ROSARIO Administration Ondansetron HCl 4 mg 04/10/25 00:10 04/10/25 16:59 Ondansetron Hcl 4 Mg/2 Ml Vial IV 05/10/25 00:09 4 mg Q6H PRN PRN Administration NAUSEA/VOMITING Pantoprazole Sodium 40 mg 04/10/25 10:00 04/10/25 09:39 Pantoprazole 40 Mg Vial IV 05/10/25 09:59 40 mg Q24H10 ROSARIO Administration Fluticasone/Salmeterol 2 puff 04/10/25 07:00 04/10/25 18:58 Fluticasone/Salmeterol 115/21 60 Puff Aer.W.Adap 05/10/25 06:59 2 puff BIDRT ROSARIO Administration Simvastatin 40 mg 04/10/25 22:00 04/10/25 22:46 Simvastatin 20 Mg Tablet PO 05/10/25 21:59 40 mg HS ROSARIO Administration Tiotropium [place] 1 ea 04/10/25 10:00 04/10/25 22:58 Tiotropium [place] 18 Mcg/Cap Inhaler 05/10/25 09:59 Not Given DAILY ROSARIO Discontinued Medications Generic Name Dose Route Start Last Admin Trade Name Freq PRN Reason Stop Dose Admin Albuterol Sulfate 2.5 mg 04/10/25 13:00 Albuterol Sulfate 2.5 Mg/3 Ml Neb 05/10/25 12:59 TIDRT ROSARIO Albuterol Sulfate Confirm 04/10/25 06:28 Albuterol Sulfate 2.5 Mg/3 Ml Neb Administered 04/10/25 06:29 Dose 2.5 mg IH .STK-MED ONE Sodium Chloride 1,000 mls @ 999 mls/hr 04/09/25 17:36 04/09/25 19:00 Sodium Chloride 0.9% 1000 Ml IV 04/09/25 18:36 Infused .Q1H1M STA Infusion Sodium Chloride Confirm 04/09/25 17:43 Sodium Chloride 0.9% 1000 Ml Administered 04/09/25 17:44 Dose 1,000 mls @ ud .ROUTE .STK-MED ONE Ceftriaxone Sodium 1 gm in 100 mls @ 200 mls/hr 04/09/25 21:06 04/09/25 22:00 Rocephin 1 Gm / 100 Ml Nacl IV 04/09/25 21:35 Infused STAT ONE Infusion Ceftriaxone Sodium Confirm 04/09/25 21:16 Rocephin 1 Gm / 100 Ml Nacl Administered 04/09/25 21:17 Dose 1 gm in 100 mls @ ud IV .STK-MED ONE Dextrose/Sodium Chloride 1,000 mls @ 100 mls/hr 04/09/25 21:30 04/09/25 22:07 Dextrose 5% -0.45 Nacl 1000 Ml IV 05/09/25 21:29 100 mls/hr .Q10H ROSARIO Administration Dextrose/Sodium Chloride Confirm 04/09/25 22:07 Dextrose 5% -0.45 Nacl 1000 Ml Administered 04/09/25 22:08 Dose 1,000 mls @ ud IV .STK-MED ONE Sodium Chloride 1,000 mls @ 100 mls/hr 04/10/25 00:15 04/10/25 09:29 Sodium Chloride 0.9% 1000 Ml IV 05/10/25 00:14 Not Given .Q10H ROSARIO Ceftriaxone Sodium 1 gm in 100 mls @ 200 mls/hr 04/10/25 22:00 Rocephin 1 Gm / 100 Ml Nacl IV 05/10/25 21:59 Q24H22 ROSARIO Sodium Chloride Confirm 04/10/25 06:59 Sodium Chloride 0.9% 1000 Ml Administered 04/10/25 07:00 Dose 1,000 mls @ ud .ROUTE .STK-MED ONE Morphine Sulfate 2 mg 04/09/25 18:48 04/09/25 19:14 Morphine Sulfate 2 Mg/Ml Inj IV 04/09/25 18:49 2 mg STAT ONE Administration Morphine Sulfate Confirm 04/09/25 19:13 Morphine Sulfate 2 Mg/Ml Inj Administered 04/09/25 19:14 Dose 2 mg .ROUTE .STK-MED ONE Non-Formulary Medication 1 puff 04/10/25 10:00 Fluticasone/Umeclidin/Vilanter [Trelegy Ellipta 100-62.5-25] IH 05/10/25 09:59 DAILY ROSARIO Non-Formulary Medication 1 each 04/10/25 10:40 04/10/25 11:26 Pharmacy Dosing Request [facility] 04/10/25 10:41 Not Given STAT ONE Ondansetron HCl 4 mg 04/09/25 17:36 04/09/25 17:56 Ondansetron Hcl 4 Mg/2 Ml Vial IV 04/09/25 17:37 4 mg STAT ONE Administration Ondansetron HCl Confirm 04/09/25 17:43 Ondansetron Hcl 4 Mg/2 Ml Vial Administered 04/09/25 17:44 Dose 4 mg .ROUTE .STK-MED ONE Pantoprazole Sodium 40 mg 04/09/25 17:36 04/09/25 17:58 Pantoprazole 40 Mg Vial IV 04/09/25 17:37 40 mg STAT ONE Administration Pantoprazole Sodium Confirm 04/09/25 17:43 Pantoprazole 40 Mg Vial Administered 04/09/25 17:44 Dose 40 mg IV .STK-MED ONE Pantoprazole Sodium 40 mg 04/10/25 00:15 04/10/25 02:25 Pantoprazole 40 Mg Vial IV 05/10/25 00:14 Not Given Q24H ROSARIO Piperacillin Sod/Tazobactam Sod Confirm 04/10/25 11:41 Piperacillin/Tazobactam Inj 2.25 Gm Vial Administered 04/10/25 11:42 Dose 2.25 gm IV .STK-MED ONE Multi-Disciplinary Progress Notes: Multi-Disciplinary Progress Notes 04/10/25 12:59 Respiratory Note by Princess Freedman PT'S DAUGHTER STATES THAT SHE USES HER BIPAP MACHINE EVERY NIGHT AT HOME. PT WILL USE OUR MACHINE WHILE HERE ONCE NG IS OUT. Initialized on 04/10/25 12:59 - END OF NOTE 04/10/25 09:29 Case Management Note by Janeth Carrizales REFERRAL FAXED TO [facility]. THEY WILL NEED NOTIFIED AT TIME OF DC AT [phone]. THEY WILL NEED FAXED THE DC INSTRUCTIONS, DC MED LIST AND DC SUMMARY (IF AVAILABLE) TO [phone]. Initialized on 04/10/25 09:29 - END OF NOTE Assessment/Plan (1) Small bowel obstruction Current Visit: Yes Status: Acute Assessment & Plan: -Keep patient NPO. -NG to LIS -IVF -Serial abdominal exams and monitoring of vitals, urine output, and electrolytes . -Surgical consult for ongoing evaluation, particularly if obstruction persists, patient develops worsening pain, peritonitis, or evidence of ischemia/perforation. Code(s): K56.609 - UNSP INTESTNL OBST, UNSP TO PARTIAL VERSUS COMPLETE OBST (2) Abdominal pain Current Visit: Yes Status: Acute Assessment & Plan: -see above Code(s): R10.9 - UNSPECIFIED ABDOMINAL PAIN (3) Acute UTI Current Visit: Yes Status: Acute Assessment & Plan: -UA concerning, leukocytosis present (WBC 22.4). Procalcitonin modestly elevated. -Continue ceftriaxone pending urine culture and sensitivity Code(s): N39.0 - URINARY TRACT INFECTION, SITE NOT SPECIFIED (4) Acute kidney injury superimposed on chronic kidney disease Current Visit: Yes Status: Acute Assessment & Plan: -Elevated creatinine from baseline 1.7 - 3.01, with BUN 50, likely prerenal component from volume depletion due to vomiting and NPO status. -Continue cautious IV hydration, strict I&O monitoring, daily BMPs, avoid nephrotoxic agents, hold renally active meds (losartan, Bumex). Code(s): N17.9 - ACUTE KIDNEY FAILURE, UNSPECIFIED; N18.9 - CHRONIC KIDNEY DISEASE, UNSPECIFIED (5) Elevated troponin Current Visit: Yes Status: Acute Assessment & Plan: -Troponin trend (0.040 - 0.050), no ischemic EKG changes, no chest pain; elevation likely due to demand ischemia in the setting of infection/ELYSE. -Telemetry monitoring, continue trending troponin and EKG, manage underlying triggers. Code(s): R77.8 - OTHER SPECIFIED ABNORMALITIES OF PLASMA PROTEINS (6) Leucocytosis Current Visit: Yes Status: Acute Qualifiers: Leukocytosis type: unspecified Qualified Code(s): D72.829 - Elevated white blood cell count, unspecified Assessment & Plan: - Initial WBC 22.4; likely multifactorial from UTI and possible inflammatory stress of ileus. -Continue ceftriaxone, monitor CBC daily, trend response to therapy. Code(s): D72.829 - ELEVATED WHITE BLOOD CELL COUNT, UNSPECIFIED (7) Vomiting Current Visit: Yes Status: Acute Qualifiers: Migraine intractability: intractable Assessment & Plan: see ileus Code(s): R11.10 - VOMITING, UNSPECIFIED (8) Alzheimer's dementia with behavioral disturbance Current Visit: Yes Status: Chronic Assessment & Plan: -Advanced dementia, unable to provide reliable history. -Continue home cognitive/behavioral regimen, supportive care, ensure safe environment Code(s): G30.9 - ALZHEIMER'S DISEASE, UNSPECIFIED; F02.81 - DEM IN OTHER DIS CLASSD ELSWHR, UNSP SEV, WIT * DO NOT USE * (9) Atrial fibrillation Current Visit: Yes Status: Chronic Qualifiers: Atrial fibrillation type: paroxysmal Qualified Code(s): I48.0 - Paroxysmal atrial fibrillation Assessment & Plan: -On chronic anticoagulation with apixaban; currently rate controlled. -Continue Eliquis; monitor heart rhythm via telemetry. Code(s): I48.91 - UNSPECIFIED ATRIAL FIBRILLATION (10) CHF (congestive heart failure) Current Visit: Yes Status: Chronic Qualifiers: Heart failure type: combined systolic and diastolic Heart failure chronicity: chronic Qualified Code(s): I50.42 - Chronic combined systolic (congestive) and diastolic (congestive) heart failure Assessment & Plan: -BNP elevated (2600), but no signs of acute decompensation. --Hold Bumex and losartan due to ELYSE, not on beta-raven due to COPD history, monitor volume status carefully -EF estimated at 20% on last echo in 2023- obtain echo Code(s): I50.9 - HEART FAILURE, UNSPECIFIED (11) COPD (chronic obstructive pulmonary disease) Current Visit: Yes Status: Chronic Qualifiers: Assessment & Plan: -No acute worsening. -Continue home O2, PRN Duonebs. Monitor for respiratory decline (12) Chronic hypoxemic respiratory failure Current Visit: Yes Status: Chronic Assessment & Plan: -Related to COPD; patient uses supplemental oxygen at home. -Continue home oxygen regimen, monitor O? saturations, maintain respiratory support (13) Depression with anxiety Current Visit: Yes Status: Chronic Code(s): F41.8 - OTHER SPECIFIED ANXIETY DISORDERS (14) GERD (gastroesophageal reflux disease) Current Visit: Yes Status: Chronic Qualifiers: Esophagitis presence: esophagitis presence not specified Qualified Code(s): K21.9 - Gastro-esophageal reflux disease without esophagitis Assessment & Plan: -Chronic, no reported acute GI bleed. -IV PPI while inpatient. Code(s): K21.9 - GASTRO-ESOPHAGEAL REFLUX DISEASE WITHOUT ESOPHAGITIS (15) Opacity noted on imaging study Current Visit: Yes Status: Acute Assessment & Plan: -Suspected aspiration pneumonia due to vomiting with SBO, new RLL opacity on CT, baseline 2 L O2, WBC 22 - 14, and mildly elevated procalcitonin (0.244). -Start Zosyn IV, adjust for renal function. -Blood/sputum cultures pending; narrow antibiotics as able. -Monitor WBC, procalcitonin, and O2 requirements. -Maintain O2 at baseline 2 L, titrate for SpO2 > 92%. -NPO while SBO managed, HOB > 30, pulmonary hygiene. Code(s): R93.89 - ABNORMAL FINDINGS ON DX IMAGING OF OTH BODY STRUCTURES (16) Type II diabetes mellitus Current Visit: Yes Status: Chronic Qualifiers: Diabetes mellitus fci insulin use: with superintendent container terminal use Diabetes mellitus complication status: with neurologic complications Diabetes mellitus complication detail: with polyneuropathy Qualified Code(s): E11.42 - Type 2 diabetes mellitus with diabetic polyneuropathy; Z79.4 - group home (current) use of insulin Assessment & Plan: -Chronic condition, at risk for hypoglycemia given NPO status. - Decrease basal insulin to 10 units daily, initiate insulin sliding scale with accuchecks Q6h. (17) HTN (hypertension) Current Visit: No Status: Chronic Assessment & Plan: -Stable blood pressures. -Continue amlodipine, hold losartan given ELYSE. VTE: Eliquis PPI: protonix Dispo: 1-3 days Code status: Full Code Plan of care time spent > 35 mins Code(s): K56.609 - UNSP INTESTNL OBST, UNSP TO PARTIAL VERSUS COMPLETE OBST (2) Abdominal pain Current Visit: Yes Status: Acute Code(s): R10.9 - UNSPECIFIED ABDOMINAL PAIN (3) Acute UTI Current Visit: Yes Status: Acute Code(s): N39.0 - URINARY TRACT INFECTION, SITE NOT SPECIFIED (4) Acute kidney injury superimposed on chronic kidney disease Current Visit: Yes Status: Acute Code(s): N17.9 - ACUTE KIDNEY FAILURE, UNSPECIFIED; N18.9 - CHRONIC KIDNEY DISEASE, UNSPECIFIED (5) Elevated troponin Current Visit: Yes Status: Acute Code(s): R77.8 - OTHER SPECIFIED ABNORMALITIES OF PLASMA PROTEINS (6) Leucocytosis Current Visit: Yes Status: Acute Qualifiers: Leukocytosis type: unspecified Qualified Code(s): D72.829 - Elevated white blood cell count, unspecified Code(s): D72.829 - ELEVATED WHITE BLOOD CELL COUNT, UNSPECIFIED (7) Vomiting Current Visit: Yes Status: Acute Qualifiers: Migraine intractability: intractable Code(s): R11.10 - VOMITING, UNSPECIFIED (8) Alzheimer's dementia with behavioral disturbance Current Visit: Yes Status: Chronic Code(s): G30.9 - ALZHEIMER'S DISEASE, UNSPECIFIED; F02.81 - DEM IN OTHER DIS CLASSD ELSWHR, UNSP SEV, WIT * DO NOT USE * (9) Atrial fibrillation Current Visit: Yes Status: Chronic Qualifiers: Atrial fibrillation type: paroxysmal Qualified Code(s): I48.0 - Paroxysmal atrial fibrillation Code(s): I48.91 - UNSPECIFIED ATRIAL FIBRILLATION (10) CHF (congestive heart failure) Current Visit: Yes Status: Chronic Qualifiers: Heart failure type: combined systolic and diastolic Heart failure chronicity: chronic Qualified Code(s): I50.42 - Chronic combined systolic (congestive) and diastolic (congestive) heart failure Code(s): I50.9 - HEART FAILURE, UNSPECIFIED (11) COPD (chronic obstructive pulmonary disease) Current Visit: Yes Status: Chronic Qualifiers: (12) Chronic hypoxemic respiratory failure Current Visit: Yes Status: Chronic (13) Depression with anxiety Current Visit: Yes Status: Chronic Code(s): F41.8 - OTHER SPECIFIED ANXIETY DISORDERS (14) GERD (gastroesophageal reflux disease) Current Visit: Yes Status: Chronic Qualifiers: Esophagitis presence: esophagitis presence not specified Qualified Code(s): K21.9 - Gastro-esophageal reflux disease without esophagitis Code(s): K21.9 - GASTRO-ESOPHAGEAL REFLUX DISEASE WITHOUT ESOPHAGITIS (15) Opacity noted on imaging study Current Visit: Yes Status: Acute Code(s): R93.89 - ABNORMAL FINDINGS ON DX IMAGING OF OTH BODY STRUCTURES (16) Type II diabetes mellitus Current Visit: Yes Status: Chronic Qualifiers: Diabetes mellitus superintendent container terminal insulin use: with fci use Diabetes mellitus complication status: with neurologic complications Diabetes mellitus complication detail: with polyneuropathy Qualified Code(s): E11.42 - Type 2 diabetes mellitus with diabetic polyneuropathy; Z79.4 - terminal operator (current) use of insulin (17) HTN (hypertension) Current Visit: No Status: Chronic Code(s): I10 - ESSENTIAL (PRIMARY) HYPERTENSION
[2025-04-11 05:41] LABS: BASOPHIL % 0.4 % (0.1-1.2); Basophil (Absolute #) 0.06 x10^3/uL (0.01-0.08); Eosinophil (Absolute #) 0.04 x10^3/uL (0.04-0.36); Hematocrit 39.4 % (34.1-44.9); Hemoglobin 11.5 g/dL (11.2-15.7); IMMATURE GRAN # 0.06 x10^3u/L (0.001-0.031); IMMATURE GRAN % 0.4 % (0.001-0.429); Lymphocyte (Absolute #) 0.97 x10^3/uL (1.18-3.74); Mean Corpuscular Hemoglobin 26.7 pg (25.6-32.2); Mean Corpuscular Hgb Concent. 29.2 g/dL (32.2-35.5); Monocyte (Absolute #) 1.54 x10^3/uL (0.24-0.86); NUCLEATED RBC # 0.00 x10^3u/L (0.00-0.012); NUCLEATED RBC % 0.0 % (0.00-0.2); Platelet Count 240 x10^3/uL (182-369); Red Blood Count 4.31 x10^6/uL (3.93-5.22); White Blood Count 14.7 x10^3/uL (3.98-10.04)
[2025-04-11 06:07] LABS: Calcium 8.8 mg/dL (8.4-10.2); Carbon Dioxide 30.0 mmol/L (22-30); Creatinine 1 2.17 mg/dL (0.52-1.04); EST GLOMERULAR FILTRATION RATE 21.7 ML/MIN; Glucose 179.0 mg/dL (74-106); Potassium 3.5 mmol/L (3.5-5.1); SGOT/AST 29.0 U/L (14-36); SGPT/ALT 19.0 U/L (0-35); Total Protein 7.3 g/dL (6.3-8.2)
[2025-04-11 06:24] LABS: Slide Review 1 YES
[2025-04-11] MEDS: Compazine 10 MG/2 ML IV ONE (10:20)
[2025-04-11] MEDS: Lantus Insulin SQ SCH (10:56)
--- NOTE | 2025-04-11 11:08 | XRAY ---
Indication: Abdominal pain. Comparison: CT abdomen/pelvis April 09, 2025 KUB again demonstrates abnormal distended small bowel loops up to 4.4 cm with paucity distal colonic bowel gas again favoring distal small-bowel obstruction. NG tube tip proximal stomach. No free air. Again arteriosclerotic tortuous abdominal aorta with CT proven AAA. Solid organs unremarkable. Osseous structures intact again with osteopenia and degenerative changes.
--- NOTE | 2025-04-11 14:30 | PCM.CONS ---
History of Present Illness - Reason for Consult Chief Complaint: uti, ileus, vomiting Requesting Provider: JOSE AMADOR MD Consulting Provider: ETIENNE JEAN MD History of Present Illness: is a 85 year old female. 85yo living at home with daughter and healthcare administrator. she is assist in all adls. ambulates room to room with walker. oriented to self, family members. will feed herself. went to [employer] festival every day last week. has great facetimes with her grandchildren. but pretty advanced dementia. she apparently has ex lap excision of benign ovarian mass at [facility] around october this year. healed up pretty decent and is apparently back to better than before that surgery. AAA is absolutely not a candidate in any circumstance previous evaled /lifeflighted to [facility]. presents with distension, nausea, emesis. ed workup consistent with SBO also stool at rectum. overnight emesis despite NG. NG working today 400 out on day shift. had emesis around tube. no abd pain. did have stool out after enema. denies current pain. "- Chief Complaint Chief Complaint: uti, ileus, vomiting History of Present Illness: is a 85 year old female from home with past medical history of AAA, HFpEF, mild aortic stenosis, CKD (h/o nephrectomy), COPD, chronic hypoxic respiratory failure, hypertension, hyperlipidemia, GERD, type 2 diabetes mellitus, Alzheimer's dementia, bradycardia status post pacemaker, status post tubal ligation, IBS, CVA, peripheral neuropathy, and atrial fibrillation on anticoagulation presented to the ED accompanied by daughter due to persistent vomiting for the past 2 days. Patient is unable to provide reliable history due to dementia. Patient's daughter did mention that patient was exhibiting abdominal distension. She had been unable to keep down fluids and solids for the past 2 days. Her last bowel movement was earlier in the ER. The patient does take stool softeners occasionally. Patient was hemodynamically stable in the ED. She was noted to have abdominal distention and abdominal tenderness. Urinalysis suggested UTI and the patient was started on ceftriaxone. Patient has significant leukocytosis. Troponin was mildly elevated. Patient was also noted to have worsening renal function compared to baseline. CT of the abdomen/pelvis showed findings concerning for ileus. The surgical team was consulted and will follow the patient with nonsurgical management at this time. NG tube placed in the ED and patient started on IV fluid hydration. - Review of Systems Constitutional: No Symptoms Eyes: No Symptoms Ears, Nose, & Throat: No Symptoms Respiratory: No Symptoms Cardiac: No Symptoms Abdominal/Gastrointestinal: Abdominal Pain, Nausea, Vomiting Genitourinary Symptoms: No Symptoms Musculoskeletal: No Symptoms Skin: No Symptoms Neurological: No Symptoms Psychological: No Symptoms Endocrine: No Symptoms Hematologic/Lymphatic: No Symptoms Immunological/Allergic: No Symptoms All Other Systems: Reviewed and Negative Medications & Allergies Home Medications: Home Medication List Amlodipine Besylate 5 mg [Norvasc 5 mg] 5 mg PO DAILY 02/08/18 [History Confirmed 04/09/25] Apixaban [Eliquis 5 mg Tablet] 2.5 mg PO BID 02/08/18 [History Confirmed 04/09/25] Atorvastatin Calcium 40 mg PO HS 02/08/18 [History Confirmed 04/09/25] Bumetanide 1 mg [Bumex 1 mg] 1 mg PO DAILY 02/08/18 [History Confirmed 04/09/25] Donepezil HCl [Aricept] 10 mg PO DAILY 02/08/18 [History Confirmed 04/09/25] Folic Acid 1 mg [Folate 1 mg] 1 mg PO DAILY 02/08/18 [History Confirmed 04/09/25] Losartan Potassium [Cozaar] 100 mg PO DAILY 02/08/18 [History Confirmed 04/09/25] Memantine HCl 5 mg PO QHS 02/08/18 [History Confirmed 04/09/25] PANTOPRAZOLE 40 mg Tablet [Protonix 40MG Tablet] 40 mg PO DAILY 02/08/18 [History Confirmed 04/09/25] OLANZapine [Olanzapine] 10 mg PO HS 02/27/19 [History Confirmed 04/09/25] Insulin Glargine,Hum.rec.anlog [Lantus] 20 unit SQ UD 04/19/19 [History Confirmed 04/09/25] Aspirin 81 gm Chew [Baby Aspirin 81 mg Chew] 81 mg PO DAILY 08/30/19 [History Confirmed 04/09/25] Escitalopram Oxalate [Lexapro] 10 mg PO DAILY 08/30/19 [History Confirmed 04/09/25] Insulin Lispro [Humalog] 10 unit SQ TID 08/31/19 [History Confirmed 04/09/25] Fluticasone/Umeclidin/Vilanter [Trelegy Ellipta 100-62.5-25] 1 puff IH DAILY 07/09/21 [History Confirmed 04/09/25] Albuterol 2.5 mg/3 ml Neb [Proventil 2.5 mg/3 ml Neb] 1 vial NEB TID 01/31/24 [History Confirmed 04/09/25] Potassium Chloride 7.5 ml PO BID 01/31/24 [History Confirmed 04/09/25] Cholecalciferol (Vitamin D3) [Vitamin D] 1,000 unit PO UD 04/09/25 [History Confirmed 04/09/25] Allergies/Adverse Reactions: Allergies Allergy/AdvReac Type Severity Reaction Status Date / Time carvedilol Allergy Verified 04/09/25 16:47 - Past Medical History Past Medical History: Yes Neurological History: Alzheimer's Disease, Dementia, Peripheral Neuropathy, Stroke ENT History: Cataracts Cardiac History: Hypertension Respiratory History: CHF, COPD, Sleep Apnea, Other Endocrine Medical History: Diabetes Type II Musculoskelatal History: Arthritis GI Medical History: Diverticulitis, Irritable Bowel History: No Pertinent History, Renal Disease Pyscho-Social History: No Pertinent History Reproductive Disorders: No Pertinent History, Other Comment: pt family states pt noncompliant with cpap, ovarian cysts. THICKENED LIQUIDS BY MOUTH - Past Surgical History Past Surgical History: Yes Neuro Surgical History: No Pertinent History Cardiac History: No Pertinent History, Internal Defibrillator, Pacemaker Respiratory Surgery: No Pertinent History GI Surgical History: No Pertinent History Genitourinary Surgical Hx: Other Musculskeletal Surgical Hx: No Pertinent History Female Surgical History: Tubal Ligation Other Surgical History: ear surgery, cataract surgery, bladder tuck,lasik surgery. Kidney removed Significant Family History: no pertinent family hx - Social History Smoking Status: Former smoker How long have you smoked: 50 Exposure to second hand smoke: No Alcohol: None Drug Use: none - Social Determinants of Health Will the patient participate in the screening: Yes Do you worry about a steady place to live?: No Do you have any problems with any of the following?: No known problems In the past 12 months,have you had to go without utilities?: No Have you or anyone in your house had to go without enough: No Transportation Issues: No Has anyone in your support network made you feel unsafe?: No Does the patient want assistance with any of the above?: No" Medications & Allergies Home Medications: Home Medication List Amlodipine Besylate 5 mg [Norvasc 5 mg] 5 mg PO DAILY 02/08/18 [History Confirmed 04/09/25] Apixaban [Eliquis 5 mg Tablet] 2.5 mg PO BID 02/08/18 [History Confirmed 04/09/25] Atorvastatin Calcium 40 mg PO HS 02/08/18 [History Confirmed 04/09/25] Bumetanide 1 mg [Bumex 1 mg] 1 mg PO DAILY 02/08/18 [History Confirmed 04/09/25] Donepezil HCl [Aricept] 10 mg PO DAILY 02/08/18 [History Confirmed 04/09/25] Folic Acid 1 mg [Folate 1 mg] 1 mg PO DAILY 02/08/18 [History Confirmed 04/09/25] Losartan Potassium [Cozaar] 100 mg PO DAILY 02/08/18 [History Confirmed 04/09/25] Memantine HCl 5 mg PO QHS 02/08/18 [History Confirmed 04/09/25] PANTOPRAZOLE 40 mg Tablet [Protonix 40MG Tablet] 40 mg PO DAILY 02/08/18 [History Confirmed 04/09/25] OLANZapine [Olanzapine] 10 mg PO HS 02/27/19 [History Confirmed 04/09/25] Insulin Glargine,Hum.rec.anlog [Lantus] 20 unit SQ UD 04/19/19 [History Confirmed 04/09/25] Aspirin 81 gm Chew [Baby Aspirin 81 mg Chew] 81 mg PO DAILY 08/30/19 [History Confirmed 04/09/25] Escitalopram Oxalate [Lexapro] 10 mg PO DAILY 08/30/19 [History Confirmed 04/09/25] Insulin Lispro [Humalog] 10 unit SQ TID 08/31/19 [History Confirmed 04/09/25] Fluticasone/Umeclidin/Vilanter [Trelegy Ellipta 100-62.5-25] 1 puff IH DAILY 07/09/21 [History Confirmed 04/09/25] Albuterol 2.5 mg/3 ml Neb [Proventil 2.5 mg/3 ml Neb] 1 vial NEB TID 01/31/24 [History Confirmed 04/09/25] Potassium Chloride 7.5 ml PO BID 01/31/24 [History Confirmed 04/09/25] Cholecalciferol (Vitamin D3) [Vitamin D] 1,000 unit PO UD 04/09/25 [History Confirmed 04/09/25] Allergies/Adverse Reactions: Allergies Allergy/AdvReac Type Severity Reaction Status Date / Time carvedilol Allergy Verified 04/09/25 16:47 - Past Medical History Past Medical History: Yes Neurological History: Alzheimer's Disease, Dementia, Peripheral Neuropathy, Stroke ENT History: Cataracts Cardiac History: Hypertension Respiratory History: CHF, COPD, Sleep Apnea, Other Endocrine Medical History: Diabetes Type II Musculoskelatal History: Arthritis GI Medical History: Diverticulitis, Irritable Bowel History: No Pertinent History, Renal Disease Pyscho-Social History: No Pertinent History Reproductive Disorders: No Pertinent History, Other Comment: pt family states pt noncompliant with cpap, ovarian cysts. THICKENED LIQUIDS BY MOUTH - Past Surgical History Past Surgical History: Yes Neuro Surgical History: No Pertinent History Cardiac History: No Pertinent History, Internal Defibrillator, Pacemaker Respiratory Surgery: No Pertinent History GI Surgical History: No Pertinent History Genitourinary Surgical Hx: Other Musculskeletal Surgical Hx: No Pertinent History Female Surgical History: Tubal Ligation Other Surgical History: ear surgery, cataract surgery, bladder tuck,lasik surgery. Kidney removed Significant Family History: no pertinent family hx - Social History Smoking Status: Former smoker How long have you smoked: 50 Exposure to second hand smoke: No Alcohol: None Drug Use: none - Social Determinants of Health Will the patient participate in the screening: Yes Do you worry about a steady place to live?: No Do you have any problems with any of the following?: No known problems In the past 12 months,have you had to go without utilities?: No Have you or anyone in your house had to go without enough: No Transportation Issues: No Has anyone in your support network made you feel unsafe?: No Does the patient want assistance with any of the above?: No - Physical Exam Vital Signs: Vital Signs - 24 hr Temp Pulse Resp BP Pulse Ox 04/11/25 13:27 85 18 90 L 04/11/25 11:51 97.8 F 87 20 162/75 96 04/11/25 08:00 98.2 F 88 22 144/77 99 04/11/25 04:00 97.8 F 81 19 172/77 97 04/10/25 23:57 97.9 F 78 23 147/68 95 04/10/25 20:00 97.6 F 90 16 159/70 94 L 04/10/25 18:59 72 16 95 04/10/25 15:52 97.7 F 73 20 124/64 96 Additional Findings: 04/11/25 14:27 nad no scleral icterus neck symmetric nonlabored resps reg rate obese soft, didstended, minimal ttp no r/g. ng in place brown fluid. mod edema opens eyes to voice. won't talk to me. Results - Labs Lab/Micro Results: Lab Results-Last 24 Hours 04/10/25 04/10/25 04/11/25 Range/Units 16:13 21:44 04:47 WBC 14.7 H (3.98-10.04) x10^3/uL RBC 4.31 (3.93-5.22) x10^6/uL Hgb 11.5 (11.2-15.7) g/dL Hct 39.4 (34.1-44.9) % MCV 91.4 (79.4-94.8) fL MCH 26.7 (25.6-32.2) pg MCHC 29.2 L (32.2-35.5) g/dL RDW 17.6 H (11.7-14.4) % Plt Count 240 (182-369) x10^3/uL MPV 10.4 (9.4-12.3) fL Gran % 81.8 H (34.0-71.1) % Immature Gran % (Auto) 0.4 (0.001-0.429) % Nucleat RBC Rel Count 0.0 (0.00-0.2) % Eos # (Auto) 0.04 (0.04-0.36) x10^3/uL Immature Gran # (Auto) 0.06 H (0.001-0.031) x10^3u/L Absolute Lymphs (auto) 0.97 L (1.18-3.74) x10^3/uL Absolute Monos (auto) 1.54 H (0.24-0.86) x10^3/uL Absolute Nucleated RBC 0.00 (0.00-0.012) x10^3u/L Lymphocytes % 6.6 L (19.3-51.7) % Monocytes % 10.5 (4.7-12.5) % Eosinophils % 0.3 L (0.7-5.8) % Basophils % 0.4 (0.1-1.2) % Absolute Granulocytes 12.06 H (1.56-6.13) x10^3/uL Basophils # 0.06 (0.01-0.08) x10^3/uL Sodium (135-145) mmol/L Potassium (3.5-5.1) mmol/L Chloride (98-107) mmol/L Carbon Dioxide (22-30) mmol/L Anion Gap (5-15) MEQ/L BUN (7-17) mg/dL Creatinine (0.52-1.04) mg/dL Estimated GFR ML/MIN Glucose (74-106) mg/dL POC Glucometer 192 H 175 H (74 to 106) mg/dL Calcium (8.4-10.2) mg/dL Magnesium (1.6-2.3) mg/dL Total Bilirubin (0.2-1.3) mg/dL AST (14-36) U/L ALT (0-35) U/L Alkaline Phosphatase (38-126) U/L Serum Total Protein (6.3-8.2) g/dL Albumin (3.5-5.0) g/dL Slides for Path Review YES 04/11/25 04/11/25 04/11/25 Range/Units 04:47 06:37 11:38 WBC (3.98-10.04) x10^3/uL RBC (3.93-5.22) x10^6/uL Hgb (11.2-15.7) g/dL Hct (34.1-44.9) % MCV (79.4-94.8) fL MCH (25.6-32.2) pg MCHC (32.2-35.5) g/dL RDW (11.7-14.4) % Plt Count (182-369) x10^3/uL MPV (9.4-12.3) fL Gran % (34.0-71.1) % Immature Gran % (Auto) (0.001-0.429) % Nucleat RBC Rel Count (0.00-0.2) % Eos # (Auto) (0.04-0.36) x10^3/uL Immature Gran # (Auto) (0.001-0.031) x10^3u/L Absolute Lymphs (auto) (1.18-3.74) x10^3/uL Absolute Monos (auto) (0.24-0.86) x10^3/uL Absolute Nucleated RBC (0.00-0.012) x10^3u/L Lymphocytes % (19.3-51.7) % Monocytes % (4.7-12.5) % Eosinophils % (0.7-5.8) % Basophils % (0.1-1.2) % Absolute Granulocytes (1.56-6.13) x10^3/uL Basophils # (0.01-0.08) x10^3/uL Sodium 141 (135-145) mmol/L Potassium 3.5 (3.5-5.1) mmol/L Chloride 103 (98-107) mmol/L Carbon Dioxide 30 (22-30) mmol/L Anion Gap 11.6 (5-15) MEQ/L BUN 41 H (7-17) mg/dL Creatinine 2.17 H (0.52-1.04) mg/dL Estimated GFR 21.7 ML/MIN Glucose 179 H (74-106) mg/dL POC Glucometer 184 H 209 H (74 to 106) mg/dL Calcium 8.8 (8.4-10.2) mg/dL Magnesium 2.2 (1.6-2.3) mg/dL Total Bilirubin 0.40 (0.2-1.3) mg/dL AST 29 (14-36) U/L ALT 19 (0-35) U/L Alkaline Phosphatase 94 (38-126) U/L Serum Total Protein 7.3 (6.3-8.2) g/dL Albumin 3.8 (3.5-5.0) g/dL Slides for Path Review Microbiology 04/09/25 18:12 Urine Culture - Preliminary Urine, Catheterized GRAM POSITIVE ID AND SENSITIVITY PENDING 04/09/25 18:22 Blood Culture - Preliminary Blood 04/09/25 18:18 Blood Culture - Preliminary Blood Accuchecks Date 04/10/25 Date 04/10/25 Time 22:00 Time 16:41 - Radiology Impressions Radiology Exams & Impressions: Radiology Procedures Category Date Time Status ABDOMEN AND PELVIS W/0 CONTRAS [CT] Stat Exams 04/09/25 18:41 Completed CHEST 1 VIEW (PORTABLE) Stat Exams 04/09/25 19:27 Completed CHEST 1 VIEW (PORTABLE) Stat Exams 04/09/25 22:35 Completed CHEST 1 VIEW (PORTABLE) Stat Exams 04/10/25 16:52 Completed KUB Urgent Exams 04/11/25 09:55 Completed Assessment/Plan (1) Small bowel obstruction Current Visit: Yes Status: Acute Assessment & Plan: 85yo consistent with sbo. transition on ct scan. benign exam. distended. multiple emesis. KUB today with continued small bowel distension consistent with SBO. she just had ex lap at [facility] this year. she is a very marginal surgical candidate. acute on chronic CKD. one kidney. inoperable AAA. pneumonia on O2. realistically she is ABSOLUTELY INAPPROPRIATE for general anesthesia/ex lap here. i would expect ICU care and possible dialysis after surgery. options are. 1. nonop management, NG, supportive care hospice if fails to progress. 2. transfer to tertiary center. preferably [facility] as they did her ex lap this year. Code(s): K56.609 - UNSP INTESTNL OBST, UNSP TO PARTIAL VERSUS COMPLETE OBST
[2025-04-12 05:08] LABS: Hematocrit 35.7 % (34.1-44.9); Hemoglobin 10.9 g/dL (11.2-15.7); Mean Corpuscular Hemoglobin 26.9 pg (25.6-32.2); Mean Corpuscular Hgb Concent. 30.5 g/dL (32.2-35.5); Platelet Count 250 x10^3/uL (182-369); Red Blood Count 4.05 x10^6/uL (3.93-5.22); White Blood Count 8.8 x10^3/uL (3.98-10.04)
[2025-04-12 05:49] LABS: Calcium 8.6 mg/dL (8.4-10.2); Carbon Dioxide 25.0 mmol/L (22-30); Creatinine 1 2.02 mg/dL (0.52-1.04); EST GLOMERULAR FILTRATION RATE 23.6 ML/MIN; Glucose 143.0 mg/dL (74-106); Potassium 3.6 mmol/L (3.5-5.1); SGOT/AST 24.0 U/L (14-36); SGPT/ALT 18.0 U/L (0-35); Total Protein 6.3 g/dL (6.3-8.2)
[2025-04-12 07:23] LABS: BAND 5 % (0.0-2.0); Total Cells Counted 100
[2025-04-12] MEDS ORDERED: PHARMACY RENAL DOSING MC ONE (08:22)
[2025-04-12] MEDS: Zyvox 600 MG IV PREMIX*** 300 ML IV SCH (09:12)
[2025-04-12] MEDS: Sodium Chloride 0.9% 10 ML FLUSH Syringe IJ SCH (11:38)
[2025-04-12 11:47] VITALS: BP 129/74; TEMP 97.8
--- NOTE | 2025-04-12 11:48 | CONS ---
REASON FOR CONSULTATION: Possible bowel obstruction. HISTORY: An 85-year-old white female presented with projectile vomiting. She had been having a little trouble. She actually was disimpacted at home a few days ago. She did have a bowel movement on Wednesday and Wednesday but despite that, she had this projectile vomiting. She had nasogastric tube anchored. She had a fair amount of material. It is mildly foul. Her abdomen is totally soft at this time. It is not distended. It is nontender. She feels she has quite a bit of stool yet. We will give her 2 enemas. We may even give something down the NG tomorrow prior to removing that. IMPRESSION: I think she is just impacted. PLAN: Continue treatment for disimpaction and continued sequential re-examination. I do not think she is going to be having a surgical condition here. Her family is well aware of this.
[2025-04-12 13:03] VITALS: PULSE 76; RESP 18; O2SAT 91
--- NOTE | 2025-04-12 13:20 | PCM.DS ---
Discharge Summary Date of Admission: 04/09/25 22:55 Date of Discharge: 04/12/25 Admitting Physician: JOSE AMADOR MD Consults: Consults on Case 04/10/25 09:48 Consult Surgery ROUTINE Primary Care Provider: NO FAMILY DOCTOR Allergies Allergies carvedilol Allergy (Verified 04/09/25 16:47) Hospital Summary - Hospital Course Hospital Course: Ms. Plaza is an 85-year-old woman with a significant past medical history including abdominal aortic aneurysm, heart failure with preserved ejection fraction, mild aortic stenosis, chronic kidney disease status post nephrectomy, COPD with chronic hypoxemic respiratory failure, hypertension, hyperlipidemia, GERD, type 2 diabetes mellitus with neuropathy, Alzheimers dementia, bradycardia status post pacemaker, IBS, prior CVA, peripheral neuropathy, and atrial fibrillation on chronic anticoagulation. She presented from home with her daughter for evaluation of persistent vomiting and abdominal distension over two days, associated with inability to tolerate solids or fluids. A bowel movement had been noted in the ED prior to admission. On arrival, she was hemodynamically stable but in mild distress from abdominal discomfort. Exam was notable for marked abdominal distension and tenderness. Laboratory evaluation revealed significant leukocytosis (WBC 22.4), metabolic alkalosis (CO? 32 with anion gap 15.8), and acute kidney injury on chronic kidney disease (BUN 50, creatinine 3.01 from baseline 1.7). BNP was elevated at 2600, consistent with her chronic heart failure, though without evidence of acute decompensation. Troponin was mildly elevated (0.0400.050) but without ischemic ECG changes or chest pain, likely representing demand ischemia in the setting of infection and renal dysfunction. Urinalysis was suspicious for infection, and ceftriaxone was initiated empirically. CXR demonstrated bibasilar atelectasis/infiltrates and borderline cardiomegaly. CT abdomen/pelvis confirmed abnormal fluid distention of the stomach and proximal small bowel with a clear transition point in the right mid-abdomen, consistent with small bowel obstruction, with no free air or fluid. Additional findings included new rectal fecal impaction, endobronchial opacities with postobstructive atelectasis in the right lower lobe concerning for aspiration, extensive arteriosclerotic disease with known AAA, left nephrectomy, and right renal cyst. Surgery was consulted and initially recommended conservative management with NG decompression, bowel rest, IV fluids, and antiemetics. Over the following days, despite NG placement and enemas, the patient continued with vomiting and obstructive symptoms. Serial KUB confirmed persistent obstruction. WBC trended down to normal (8.8) by 04/12, and renal function partially improved (creatinine 2.02). Urine culture grew VRE, and linezolid was initiated (renally dosed). Zosyn was continued for aspiration pneumonia coverage. Anticoagulation with Eliquis was held in preparation for surgical intervention. Given persistent obstruction and surgical need beyond local resources, arrangements were made for transfer to a higher level of care. She is being transferred to [facility] for surgical evaluation and management of small bowel obstruction. I spent 35 minutes [id number] with the patient on the day of discharge performing discharge exam, discussing hospital stay and discharge instructions with patient and caregivers, preparation of discharge records, prescriptions & referral forms and addressing any questions/concerns the patient had as documented above. - Vitals & Intake/Output Vital Signs: Vital Signs Temperature 97.8 F 04/12/25 11:46 Pulse Rate 76 04/12/25 12:50 Respiratory Rate 18 04/12/25 12:50 Blood Pressure 129/74 04/12/25 11:46 O2 Sat by Pulse Oximetry 91 L 04/12/25 12:50 Intake & Output: Intake & Output 04/10/25 04/11/25 04/12/25 04/13/25 11:59 11:59 11:59 11:59 Intake Total 734 2257 3332 Output Total 653 668 4120 Balance 9 1507 2207 Weight 77.6 kg 77.4 kg 80 kg - Lab Result Diagrams: 04/12/25 04:38 04/12/25 04:38 Lab Results-Last 24 Hrs: Lab Results-Last 24 Hours 04/11/25 04/11/25 04/12/25 Range/Units 15:37 22:03 04:38 WBC (3.98-10.04) x10^3/uL RBC (3.93-5.22) x10^6/uL Hgb (11.2-15.7) g/dL Hct (34.1-44.9) % MCV (79.4-94.8) fL MCH (25.6-32.2) pg MCHC (32.2-35.5) g/dL RDW (11.7-14.4) % Plt Count (182-369) x10^3/uL MPV (9.4-12.3) fL Segmented Neutrophils (34.0-71.1) % Band Neutrophils (0.0-2.0) % Lymphocytes (Manual) (19.3-51.7) % Monocytes (Manual) (4.7-12.5) % Platelet Estimate (NORMAL) RBC Morphology Sodium (135-145) mmol/L Potassium (3.5-5.1) mmol/L Chloride (98-107) mmol/L Carbon Dioxide (22-30) mmol/L Anion Gap (5-15) MEQ/L BUN (7-17) mg/dL Creatinine (0.52-1.04) mg/dL Estimated GFR ML/MIN Glucose (74-106) mg/dL POC Glucometer 150 H 155 H (74 to 106) mg/dL Calcium (8.4-10.2) mg/dL Magnesium 2.0 (1.6-2.3) mg/dL Total Bilirubin (0.2-1.3) mg/dL AST (14-36) U/L ALT (0-35) U/L Alkaline Phosphatase (38-126) U/L Creatine Kinase (30-135) U/L Serum Total Protein (6.3-8.2) g/dL Albumin (3.5-5.0) g/dL 04/12/25 04/12/25 04/12/25 Range/Units 04:38 04:38 05:11 WBC 8.8 (3.98-10.04) x10^3/uL RBC 4.05 (3.93-5.22) x10^6/uL Hgb 10.9 L (11.2-15.7) g/dL Hct 35.7 (34.1-44.9) % MCV 88.1 (79.4-94.8) fL MCH 26.9 (25.6-32.2) pg MCHC 30.5 L (32.2-35.5) g/dL RDW 17.6 H (11.7-14.4) % Plt Count 250 (182-369) x10^3/uL MPV 10.1 (9.4-12.3) fL Segmented Neutrophils 70 (34.0-71.1) % Band Neutrophils 5 H (0.0-2.0) % Lymphocytes (Manual) 10 L (19.3-51.7) % Monocytes (Manual) 15 H (4.7-12.5) % Platelet Estimate NORMAL (NORMAL) RBC Morphology NORMAL Sodium 140 (135-145) mmol/L Potassium 3.6 (3.5-5.1) mmol/L Chloride 104 (98-107) mmol/L Carbon Dioxide 25 (22-30) mmol/L Anion Gap 14.4 (5-15) MEQ/L BUN 43 H (7-17) mg/dL Creatinine 2.02 H (0.52-1.04) mg/dL Estimated GFR 23.6 ML/MIN Glucose 143 H (74-106) mg/dL POC Glucometer (74 to 106) mg/dL Calcium 8.6 (8.4-10.2) mg/dL Magnesium (1.6-2.3) mg/dL Total Bilirubin 0.40 (0.2-1.3) mg/dL AST 24 (14-36) U/L ALT 18 (0-35) U/L Alkaline Phosphatase 90 (38-126) U/L Creatine Kinase 61 (30-135) U/L Serum Total Protein 6.3 (6.3-8.2) g/dL Albumin 3.4 L (3.5-5.0) g/dL 04/12/25 04/12/25 Range/Units 07:13 11:27 WBC (3.98-10.04) x10^3/uL RBC (3.93-5.22) x10^6/uL Hgb (11.2-15.7) g/dL Hct (34.1-44.9) % MCV (79.4-94.8) fL MCH (25.6-32.2) pg MCHC (32.2-35.5) g/dL RDW (11.7-14.4) % Plt Count (182-369) x10^3/uL MPV (9.4-12.3) fL Segmented Neutrophils (34.0-71.1) % Band Neutrophils (0.0-2.0) % Lymphocytes (Manual) (19.3-51.7) % Monocytes (Manual) (4.7-12.5) % Platelet Estimate (NORMAL) RBC Morphology Sodium (135-145) mmol/L Potassium (3.5-5.1) mmol/L Chloride (98-107) mmol/L Carbon Dioxide (22-30) mmol/L Anion Gap (5-15) MEQ/L BUN (7-17) mg/dL Creatinine (0.52-1.04) mg/dL Estimated GFR ML/MIN Glucose (74-106) mg/dL POC Glucometer 161 H 236 H (74 to 106) mg/dL Calcium (8.4-10.2) mg/dL Magnesium (1.6-2.3) mg/dL Total Bilirubin (0.2-1.3) mg/dL AST (14-36) U/L ALT (0-35) U/L Alkaline Phosphatase (38-126) U/L Creatine Kinase (30-135) U/L Serum Total Protein (6.3-8.2) g/dL Albumin (3.5-5.0) g/dL Micro Results-Entire Visit: Microbiology 04/09/25 18:12 Urine Culture - Final Urine, Catheterized Enterococcus Faecalis 04/09/25 18:22 Blood Culture - Preliminary Blood 04/09/25 18:18 Blood Culture - Preliminary Blood Accuchecks Date 04/12/25 Date 04/12/25 Date 04/11/25 Time 11:45 Time 07:35 Time 22:04 - Radiology Exams Ordered Rad Exams-Entire Visit: Radiology Procedures Category Date Time Status CHEST 1 VIEW (PORTABLE) Stat Exams 04/10/25 16:52 Completed KUB Urgent Exams 04/11/25 09:55 Completed - Procedures and Test Procedures and Tests throughout Hospitalization: Therapy Orders & Screens 04/10/25 00:10 Oxygen Nasal Cannula 2 lpm Comment: Diagnosis: uti, ileus, vomiting 04/10/25 00:36 Respiratory Therapy Assessment DAILY Comment: Diagnosis: uti, ileus, vomiting 04/10/25 00:37 Respiratory MDI UD Comment: Diagnosis: uti, ileus, vomiting Discharge Exam General Appearance: mild distress Neurologic Exam: alert, cooperative, disoriented, confusion Eye Exam: PERRL Ears, Nose, Throat Exam: normal ENT inspection Neck Exam: normal inspection Respiratory Exam: crackles/rales, wheezing Cardiovascular Exam: normal heart sounds, irregular Gastrointestinal/Abdomen Exam: soft, normal bowel sounds, distention Pelvic Exam: deferred Rectal Exam: deferred Back Exam: normal inspection Extremity Exam: normal inspection Skin Exam: normal color Final Diagnosis/Problem List - Final Discharge Diagnosis/Problem (1) Small bowel obstruction Current Visit: Yes Status: Acute Assessment & Plan: Confirmed by CT with transition point, persistent on follow-up KUB. Managed with NG tube to LIS, NPO status, IV fluids, enemas; no resolution. Transferring for surgical intervention. Code(s): K56.609 - UNSP INTESTNL OBST, UNSP TO PARTIAL VERSUS COMPLETE OBST (2) Abdominal pain Current Visit: Yes Status: Acute Assessment & Plan: Secondary to obstruction. Symptom improved partially with decompression, remains unresolved. Code(s): R10.9 - UNSPECIFIED ABDOMINAL PAIN (3) Acute UTI Current Visit: Yes Status: Acute Assessment & Plan: UA concerning, leukocytosis initially elevated. Urine culture positive for VRE ? started on linezolid (renally dosed). Code(s): N39.0 - URINARY TRACT INFECTION, SITE NOT SPECIFIED (4) Acute kidney injury superimposed on chronic kidney disease Current Visit: Yes Status: Acute Assessment & Plan: Baseline creatinine 1.7, corby to 3.01 with BUN 50, improved to 2.02 with hydration and avoidance of nephrotoxins. Losartan and Bumex held. Code(s): N17.9 - ACUTE KIDNEY FAILURE, UNSPECIFIED; N18.9 - CHRONIC KIDNEY DISEASE, UNSPECIFIED (5) Elevated troponin Current Visit: Yes Status: Acute Assessment & Plan: Mild troponin elevation without ischemic changes. Monitored on telemetry, no ACS suspected Code(s): R77.8 - OTHER SPECIFIED ABNORMALITIES OF PLASMA PROTEINS (6) Leucocytosis Current Visit: Yes Status: Acute Assessment & Plan: Initial WBC 22.4, likely from infection/stress; improved to 8.8 after antibiotics. Code(s): D72.829 - ELEVATED WHITE BLOOD CELL COUNT, UNSPECIFIED (7) Vomiting Current Visit: Yes Status: Acute Assessment & Plan: Secondary to SBO. Symptom-driven management. Code(s): R11.10 - VOMITING, UNSPECIFIED (8) Alzheimer's dementia with behavioral disturbance Current Visit: Yes Status: Chronic Assessment & Plan: Supportive care continued. Code(s): G30.9 - ALZHEIMER'S DISEASE, UNSPECIFIED; F02.81 - DEM IN OTHER DIS CLASSD ELSWHR, UNSP SEV, WIT * DO NOT USE * (9) Atrial fibrillation Current Visit: Yes Status: Chronic Assessment & Plan: On Eliquis, currently held for surgical planning. Code(s): I48.91 - UNSPECIFIED ATRIAL FIBRILLATION (10) CHF (congestive heart failure) Current Visit: Yes Status: Chronic Assessment & Plan: BNP elevated but no acute decompensation; losartan and Bumex held due to ELYSE; last EF 20% (2023). Code(s): I50.9 - HEART FAILURE, UNSPECIFIED (11) COPD (chronic obstructive pulmonary disease) Current Visit: Yes Status: Chronic Assessment & Plan: Stable, maintained on home O2 and PRN Duonebs. (12) Chronic hypoxemic respiratory failure Current Visit: Yes Status: Chronic Assessment & Plan: Stable, maintained on home O2 and PRN Duonebs. (13) Depression with anxiety Current Visit: Yes Status: Chronic Assessment & Plan: Continue home regimen. Code(s): F41.8 - OTHER SPECIFIED ANXIETY DISORDERS (14) GERD (gastroesophageal reflux disease) Current Visit: Yes Status: Chronic Assessment & Plan: IV PPI given inpatient. Code(s): K21.9 - GASTRO-ESOPHAGEAL REFLUX DISEASE WITHOUT ESOPHAGITIS (15) Opacity noted on imaging study Current Visit: Yes Status: Acute Assessment & Plan: RLL opacity with postobstructive atelectasis, mild procalcitonin elevation. Treated with Zosyn, renally dosed. Code(s): R93.89 - ABNORMAL FINDINGS ON DX IMAGING OF OTH BODY STRUCTURES (16) Type II diabetes mellitus Current Visit: Yes Status: Chronic Assessment & Plan: On insulin; regimen reduced and SSI used inpatient due to NPO. (17) HTN (hypertension) Current Visit: No Status: Chronic Assessment & Plan: Stable, continued amlodipine, losartan held for ELYSE. Code(s): I10 - ESSENTIAL (PRIMARY) HYPERTENSION - Discharge Discharge Date: 04/12/25 Disposition: Home, Self-Care Condition: Fair Prescriptions: New Albuterol/Ipratropium 3ml Neb* [DUONEB 0.5-3 MG/3 ml Neb] 3 ml IH Q4HPRN PRN PRN Reason: Shortness Of Breath/Wheezing Piperacillin/Tazobactam [Piperacillin/Tazobactam 2.25 GM] 2.25 gm IV Q8HT Pantoprazole 40 mg [Protonix 40 mg IV] 40 mg IV Q24H10 Tiotropium [place] Inhaler [Spiriva 18 Mcg/Cap Inhaler] 1 ea IH DAILY inhaler Ondansetron HCl 4 mg/2 ml [Zofran 4 MG/2 ML VIAL] 4 mg IV Q6H PRN PRN PRN Reason: Nausea/Vomiting Linezolid 600 mg/300 ml [Zyvox 600 MG IV PREMIX] 300 ml IV Q12HT iv piggy Continue Memantine HCl 5 mg PO QHS Folic Acid 1 mg [Folate 1 mg] 1 mg PO DAILY Donepezil HCl [Aricept] 10 mg PO DAILY Amlodipine Besylate 5 mg [Norvasc 5 mg] 5 mg PO DAILY Atorvastatin Calcium 40 mg PO HS OLANZapine [Olanzapine] 10 mg PO HS Insulin Glargine,Hum.rec.anlog [Lantus] 20 unit SQ UD Escitalopram Oxalate [Lexapro] 10 mg PO DAILY Fluticasone/Umeclidin/Vilanter [Trelegy Ellipta 100-62.5-25] 1 puff IH DAILY Potassium Chloride 7.5 ml PO BID Albuterol 2.5 mg/3 ml Neb [Proventil 2.5 mg/3 ml Neb] 1 vial NEB TID Cholecalciferol (Vitamin D3) [Vitamin D] 1,000 unit PO UD Discontinued Apixaban [Eliquis 5 mg Tablet] 2.5 mg PO BID Bumetanide 1 mg [Bumex 1 mg] 1 mg PO DAILY PANTOPRAZOLE 40 mg Tablet [Protonix 40MG Tablet] 40 mg PO DAILY Losartan Potassium [Cozaar] 100 mg PO DAILY Aspirin 81 gm Chew [Baby Aspirin 81 mg Chew] 81 mg PO DAILY Insulin Lispro [Humalog] 10 unit SQ TID Follow up with: JANNETTE YADAV MD [ACTIVE STAFF, FAMILY PRACTICE] - 04/19/25 2:15 pm ISATU CÁRDENAS MD [CONSULTING PHYSICIAN, NEPHROLOGY] - 04/23/25 3:00 pm ETIENNE JEAN MD [ACTIVE STAFF, GENERAL SURGERY]
== END 2025-04-12 14:50 | disposition short-term general hospital (02) | DRG 389 ==
LOC: ED 16:39 → MED SURG 22:55
PROVIDERS: ADMIT Hospitalist; ATTEND Hospitalist
DX: K56.609 Unspecified intestinal obstruction, unspecified as to partial versus complete obstruction (principal); J96.11 Chronic respiratory failure with hypoxia; N17.9 Acute kidney failure, unspecified; N39.0 Urinary tract infection, site not specified; I12.9 Hypertensive chronic kidney disease with stage 1 through stage 4 chronic kidney disease, or unspecified chronic kidney disease; E11.22 Type 2 diabetes mellitus with diabetic chronic kidney disease; N18.9 Chronic kidney disease, unspecified; I50.9 Heart failure, unspecified; J44.9 Chronic obstructive pulmonary disease, unspecified; E78.5 Hyperlipidemia, unspecified; K21.9 Gastro-esophageal reflux disease without esophagitis; E11.42 Type 2 diabetes mellitus with diabetic polyneuropathy; Z86.73 Personal history of transient ischemic attack (TIA), and cerebral infarction without residual deficits; I48.91 Unspecified atrial fibrillation; R10.9 Unspecified abdominal pain; R77.8 Other specified abnormalities of plasma proteins; D72.829 Elevated white blood cell count, unspecified; R11.10 Vomiting, unspecified; G30.9 Alzheimer's disease, unspecified; F41.8 Other specified anxiety disorders; R93.89 Abnormal findings on diagnostic imaging of other specified body structures; Z79.01 Long term (current) use of anticoagulants; Z79.899 Other long term (current) drug therapy; Z79.4 Long term (current) use of insulin